=== PATIENT | male | born 1945 | race Caucasian/White ===

== ENCOUNTER 2016-12-03 22:56 | Inpatient (IN) ==
[2016-12-04] MEDS ORDERED: 0.9 % Sodium Chloride 1,000 ML IVC ONE (00:38)
[2016-12-04] MEDS ORDERED: Insulin Human Regular 10 UNIT in 0.9 % Sodium Chloride 10 ML IV ONE (00:39)
[2016-12-04 00:50] LABS: Calcium 9.5 mg/dL (8.6-10.8); Potassium 4.9 mEq/L (3.5-4.5)
[2016-12-04 00:57] LABS: VBG HCO3 29.7 mEq/L (21-27); VBG PH 7.34 pH Units (7.32-7.42)
[2016-12-04 01:02] LABS: Beta-Hydroxybutyric Acid 0.2 mmol/L (0.02-0.27)
--- NOTE | 2016-12-04 01:30 | Emergency Department Note ---
Disposition Clinical Impression: Hyperglycemic hyperosmolar nonketotic coma Hyperglycemia due to type 2 diabetes mellitus Qualifiers: Diabetes mellitus mcfp insulin use: without mcfp use Qualified Code(s ): E11.65 - Type 2 diabetes mellitus with hyperglycemia Disposition: Admitted As Inpatient Time of Disposition: 02:30 General Adult HPI - General Chief complaint: ED General Medical Stated complaint: High BS Time Seen by Provider: 12/04/16 01:07 Source: patient Limitations: no limitations - History of Present Illness HPI Narrative: Mr. Borges, a 71yo male, presents from home by EMS with CC: Elevated blood sugar. On intake, POC glucose was in the 580s. He has been hyperglycemic in the 5-600 range for the last 5-6 days. Patient does not manage his own medications rather his daughter does so for him. He does know that he is not insulin-dependent in his diabetes. He is unsure as to his typical blood glucose value though he does state he regularly tests his blood sugars 4-5 times a day. Patient admits to feeling tired. He denies any other symptoms including fever, chills, nausea, vomiting, changes in bowel or bladder, confusion, weakness, numbness, tingling. Of note, this is the third ER visit in the past 48 hours for hyperglycemia. Pain Scale: 8 - Related Data Home Medications Medication Instructions Recorded Confirmed Atorvastatin [Lipitor] 40 mg PO HS 08/05/15 10/23/16 Docusate [Colace] 200 mg PO BID 08/05/15 10/23/16 Donepezil [Aricept] 10 mg PO HS 08/05/15 10/23/16 Duloxetine [Cymbalta] 60 mg PO DAILY 08/05/15 10/23/16 Lactulose 20 gm PO BID 08/05/15 10/23/16 Levothyroxine [Synthroid] 175 mcg PO DAILY 08/05/15 10/23/16 Aspirin 81 mg PO DAILY 03/18/16 10/23/16 Metoprolol Tartrate [Lopressor] 50 mg PO BID 03/18/16 10/23/16 Furosemide [Lasix] 40 mg PO DAILY 07/30/16 10/23/16 Glucagon,Human Recombinant 1 mg IJ AD 07/30/16 10/23/16 [Glucagon Emergency Kit] Mirabegron [Myrbetriq] 50 mg PO DAILY 07/30/16 10/23/16 CefTRIAXone [Rocephin] 2 gm IV DAILY 10/23/16 10/23/16 Fluticasone Propionate Nasal 1 spr NS DAILY PRN 10/23/16 10/23/16 [Flonase] Guaifenesin [Iophen Nr] 200 mg PO BID PRN 10/23/16 10/23/16 HYDROcodone/Acet 5/325 mg [[place] 1 tab PO Q6H PRN 10/23/16 10/23/16 5-325 mg] Insulin Glargine,Hum.rec.anlog 30 unit SQ 0800 10/23/16 10/23/16 [Lantus Solostar] Insulin Glargine,Hum.rec.anlog 38 unit SQ 1900 10/23/16 10/23/16 [Lantus Solostar] Lidocaine Patch [Lidoderm 5% patch] 1 each TP DAILY 10/23/16 10/23/16 Loratadine [Allergy Relief] 10 mg PO DAILY 10/23/16 10/23/16 OxyCODONE/APAP 5/325 [Percocet 1 each PO Q6HR PRN 10/23/16 10/23/16 5/325 MG] Ranitidine HCl [Zantac] 150 mg PO BID 10/23/16 10/23/16 Sodium Chloride [[place] Saline] 50 ml NS PRN PRN 10/23/16 10/23/16 Tizanidine HCl 4 mg PO BID 10/23/16 10/23/16 Vancomycin [Vancocin] 1.75 g IV Q48H 10/23/16 10/23/16 Previous Rx's Medication Instructions Recorded Rifampin [Rifadin] 300 mg PO BIDAC 42 Days 08/03/16 OxyCODONE Immed Rel [Roxicodone 5 5 - 10 mg PO Q6HR PRN #40 tablet 10/22/16 MG] Allergies Allergy/AdvReac Type Severity Reaction Status Date / Time adhesive tape Allergy Hives Verified 04/25/16 06:26 pregabalin [From Lyrica] Allergy Swelling Verified 04/25/16 06:26 of Lip/Tongue/Throat Sulfa (Sulfonamide Allergy PER PT Verified 04/25/16 06:26 Antibiotics) UNKNOWN REACTION All systems ED: reviewed and negative except as stated. Constitutional: Denies: fever, chills, weakness Cardiovascular: Denies: chest pain, palpitations, dyspnea on exertion, orthopnea , syncope, paroxysmal nocturnal dyspnea Respiratory: Denies: cough, dyspnea, wheezes, hemoptysis Gastrointestinal: Denies: abdominal pain, nausea, vomiting, diarrhea, constipation, hematemesis Genitourinary: Denies: urgency, dysuria Musculoskeletal: Denies: back pain, neck pain Integumentary: Reports: lesions (decubitis ulcer). Denies: rash, abrasion Neurological: Denies: headache, weakness, numbness, paresthesias, confusion Endocrine: Reports: fatigue Past Medical History - Past Medical History Medical history: Reports: cancer, CVA, diabetes, hypertension, renal disease, thyroid disease, syncope Surgical history: Reports: appendectomy, orthopedic, other, thyroidectomy, other Psychiatric history: Reports: anxiety, depression - Social History Smoking Status: Never smoker Smokeless Tobacco Status: No Alcohol use: Reports: none Drug use: Reports: none Physical Exam General: Patient is alert, oriented, and in no acute distress. HEENT: No facial asymmetry. Head is normocephalic and atraumatic. Trachea midline. Cardiovascular: Heart regular rate and rhythm without clicks, rubs, gallops, or murmurs. No JVD. PMI nondisplaced. Respiratory: Symmetric chest rise with poor respiratory effort. Prolonged expiration phase. Bilateral breath sounds are clear without wheezing, crackles , or rhonchi. Abdomen: Obese. Bowel sounds present normoactive x-4 quadrants. Abdomen is soft, nondistended, and nontender. No organomegaly noted. 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 Neuro: Cranial nerves II through XII grossly intact. Integument: Patient has a stage I decubitus ulcer over his sacrum. Psych: Patient's affect is appropriate for situation. - General Limitations: no limitations General appearance: alert, in no apparent distress Course Course Narrative: The patient has poorly controlled type 2 diabetes. This is the third [facility] department visit the last 48 hours each for hyperglycemia. On each visit, his blood glucose was managed with administration of SQ insulin and he was discharged home only to return. Laboratory today suggest hyperglycemic hyper osmolar nonketotic state as his serum osmolality is 318, ketones negative, venous pH within reason, and serum glucose 678. We will recommend the patient for short observation stay for aggressive management of his hyperglycemia and discharge on a more appropriate regimen Accepted to hospitalist service to the service of Dr. Grijalva. Vital Signs Temperature 98.8 F 12/03/16 23:01 Pulse Rate 75 12/03/16 23:01 Respiratory Rate 16 12/03/16 23:01 Blood Pressure 176/79 12/03/16 23:01 O2 Sat by Pulse Oximetry 92 L 12/03/16 23:01 Temperature 98.8 F 12/03/16 23:01 Pulse Rate 68 12/04/16 03:14 Respiratory Rate 16 12/04/16 03:14 Blood Pressure 151/94 12/04/16 03:14 O2 Sat by Pulse Oximetry 94 L 12/04/16 03:14 Oxygen Delivery Oxygen Delivery Nasal Cannula Medical Decision Making - Lab Data Result diagrams: 12/04/16 00:25 12/04/16 00:25 Lab Results 12/03/16 12/03/16 12/04/16 Range/Units 23:00 23:02 00:25 WBC (4.3-11.1) K/mcL RBC (4.19-5.50) M/mcL Hgb (12.9-16.9) g/dL Hct (37.5-50.1) % MCV (83.0-100.0) fL MCH (28.0-33.3) pg MCHC (31.6-35.5) g/dL RDW (11.5-14.5) % Plt Count (140-400) K/mcL MPV (9.4-12.4) fL Immature Gran % (0-4) % Seg Neutrophils % % Lymphocytes % % Monocytes % % Eosinophils % % Basophils % % Neutrophils # (1.6-8.9) K/mcL Lymphocytes # (0.6-4.6) K/mcL Monocytes # (0.0-1.3) K/mcL Eosinophils # (0.0-0.6) K/mcL Basophils # (0.0-0.2) K/mcL VBG pH (7.32-7.42) pH Units VBG pCO2 (41-51) mmHg VBG pO2 (25-40) mmHg VBG HCO3 (21-27) mEq/L Sodium 134 L (136-145) mEq/L Potassium 4.9 H (3.5-4.5) mEq/L Chloride 98 (98-109) mEq/L Carbon Dioxide 21 (19-29) mEq/L BUN 18 (8-26) mg/dL Creatinine 1.53 H (0.72-1.25) mg/dL Est GFR ( Amer) 55 L (> 60) Est GFR (Non-Af Amer) 45 L (> 60) BUN/Creatinine Ratio 12 (6-26) Glucose 678 H* (70-99) mg/dL POC Glucose 595 H* 585 H* (58-89) Calculated Osmolality 312 H (280-300) Calcium 9.5 (8.6-10.8) mg/dL Beta-Hydroxybutyric Acd 0.20 (0.02-0.27) mmol/L Urine Color (Yellow) Urine Clarity (Clear) Urine pH (5.0-8.0) pH Units Ur Specific [place] (1.010-1.025) Urine Protein (Neg-Trace) mg/dL Urine Glucose (UA) (Normal) mg/dL Urine Ketones (Negative) mg/dL Urine Blood (Negative) Urine Nitrite (Negative) Urine Bilirubin (Negative) Urine Urobilinogen (Normal) mg/dL Ur Leukocyte Esterase (Negative) Urine Microscopic RBC (0-3) per hpf Urine Microscopic WBC (0-3) per hpf Ur Squamous Epith Cells (None-Few) per lpf Urine Bacteria (None-Few) per hpf Hyaline Casts (None-Few) per lpf Ur Culture Indicated? (NO) 12/04/16 12/04/16 12/04/16 Range/Units 00:25 00:50 02:04 WBC 7.6 (4.3-11.1) K/mcL RBC 3.83 L (4.19-5.50) M/mcL Hgb 8.8 L (12.9-16.9) g/dL Hct 29.6 L (37.5-50.1) % MCV 77.3 L (83.0-100.0) fL MCH 23.0 L (28.0-33.3) pg MCHC 29.7 L (31.6-35.5) g/dL RDW 16.0 H (11.5-14.5) % Plt Count 119 L (140-400) K/mcL MPV 12.2 (9.4-12.4) fL Immature Gran % 0.7 (0-4) % Seg Neutrophils % 63.2 % Lymphocytes % 22.6 % Monocytes % 7.5 % Eosinophils % 5.6 % Basophils % 0.4 % Neutrophils # 4.8 (1.6-8.9) K/mcL Lymphocytes # 1.7 (0.6-4.6) K/mcL Monocytes # 0.6 (0.0-1.3) K/mcL Eosinophils # 0.4 (0.0-0.6) K/mcL Basophils # 0.0 (0.0-0.2) K/mcL VBG pH 7.34 (7.32-7.42) pH Units VBG pCO2 55 H (41-51) mmHg VBG pO2 63 H (25-40) mmHg VBG HCO3 29.7 H (21-27) mEq/L Sodium (136-145) mEq/L Potassium (3.5-4.5) mEq/L Chloride (98-109) mEq/L Carbon Dioxide (19-29) mEq/L BUN (8-26) mg/dL Creatinine (0.72-1.25) mg/dL Est GFR ( Amer) (> 60) Est GFR (Non-Af Amer) (> 60) BUN/Creatinine Ratio (6-26) Glucose (70-99) mg/dL POC Glucose (58-89) Calculated Osmolality (280-300) Calcium (8.6-10.8) mg/dL Beta-Hydroxybutyric Acd (0.02-0.27) mmol/L Urine Color Yellow (Yellow) Urine Clarity Clear (Clear) Urine pH 6.0 (5.0-8.0) pH Units Ur Specific [place] 1.027 H (1.010-1.025) Urine Protein 100 H (Neg-Trace) mg/dL Urine Glucose (UA) >=1000 H (Normal) mg/dL Urine Ketones Negative (Negative) mg/dL Urine Blood Negative (Negative) Urine Nitrite Negative (Negative) Urine Bilirubin Negative (Negative) Urine Urobilinogen Normal (Normal) mg/dL Ur Leukocyte Esterase Negative (Negative) Urine Microscopic RBC 3-5 H (0-3) per hpf Urine Microscopic WBC 15-30 H (0-3) per hpf Ur Squamous Epith Cells Many H (None-Few) per lpf Urine Bacteria None Seen (None-Few) per hpf Hyaline Casts None Seen (None-Few) per lpf Ur Culture Indicated? YES A (NO) 12/04/16 Range/Units 02:14 WBC (4.3-11.1) K/mcL RBC (4.19-5.50) M/mcL Hgb (12.9-16.9) g/dL Hct (37.5-50.1) % MCV (83.0-100.0) fL MCH (28.0-33.3) pg MCHC (31.6-35.5) g/dL RDW (11.5-14.5) % Plt Count (140-400) K/mcL MPV (9.4-12.4) fL Immature Gran % (0-4) % Seg Neutrophils % % Lymphocytes % % Monocytes % % Eosinophils % % Basophils % % Neutrophils # (1.6-8.9) K/mcL Lymphocytes # (0.6-4.6) K/mcL Monocytes # (0.0-1.3) K/mcL Eosinophils # (0.0-0.6) K/mcL Basophils # (0.0-0.2) K/mcL VBG pH (7.32-7.42) pH Units VBG pCO2 (41-51) mmHg VBG pO2 (25-40) mmHg VBG HCO3 (21-27) mEq/L Sodium (136-145) mEq/L Potassium (3.5-4.5) mEq/L Chloride (98-109) mEq/L Carbon Dioxide (19-29) mEq/L BUN (8-26) mg/dL Creatinine (0.72-1.25) mg/dL Est GFR ( Amer) (> 60) Est GFR (Non-Af Amer) (> 60) BUN/Creatinine Ratio (6-26) Glucose (70-99) mg/dL POC Glucose 504 H* (58-89) Calculated Osmolality (280-300) Calcium (8.6-10.8) mg/dL Beta-Hydroxybutyric Acd (0.02-0.27) mmol/L Urine Color (Yellow) Urine Clarity (Clear) Urine pH (5.0-8.0) pH Units Ur Specific [place] (1.010-1.025) Urine Protein (Neg-Trace) mg/dL Urine Glucose (UA) (Normal) mg/dL Urine Ketones (Negative) mg/dL Urine Blood (Negative) Urine Nitrite (Negative) Urine Bilirubin (Negative) Urine Urobilinogen (Normal) mg/dL Ur Leukocyte Esterase (Negative) Urine Microscopic RBC (0-3) per hpf Urine Microscopic WBC (0-3) per hpf Ur Squamous Epith Cells (None-Few) per lpf Urine Bacteria (None-Few) per hpf Hyaline Casts (None-Few) per lpf Ur Culture Indicated? (NO) Attestation Statement - Attestation Attestation: I, Charanjit Malone MD, personally performed a history and physical exam of the patient and discussed their management with the resident. I reviewed the resident's note and agree with the documented findings, medical decision making , and plan of care. 71-year-old male with history of diabetes presents to the emergency department with a complaint of hyperglycemia. Patient was here 24 hours ago for the same complaint and received IV fluids and IV insulin. He was discharged home last night the middle the night and then returned again today about 10 AM. He was here most of the day and then discharged home again. He returns tonight complaining that his blood sugar is back high again. On examination patient is a well-developed obese elderly male in no acute distress. He is alert and oriented 3. There is no cyanosis or diaphoresis. Breath sounds are equal bilaterally. Heart regular rate and rhythm. Abdomen soft with normal bowel sounds. Labs reviewed. The hospitalist, Dr. Grijalva, was consulted and accepted admission of the patient.
[2016-12-04 02:14] LABS: Bilirubin,Urine Negative (Negative); Blood,Urine Negative (Negative); Clarity,Urine Clear (Clear); Color,Urine Yellow (Yellow); Glucose,Urine (UA) >=1000 mg/dL (Normal); Ketones,Urine Negative (Negative); Leukocyte Esterase,Urine Negative (Negative); Nitrite,Urine Negative (Negative); Protein,Urine 100 mg/dL (Neg-Trace); Specific Gravity,Urine 1.027 (1.010-1.025); Urobilinogen,Urine Normal (Normal)
[2016-12-04 02:16] LABS: Bacteria,Urine None Seen per hpf (None-Few); Hyaline Casts,Urine None Seen per lpf (None-Few); Squamous Epithelial Cell,Urine Many per lpf (None-Few); WBC,Urine 15-30 per hpf (0-3)
[2016-12-04 02:36] LABS: Basophils % 0.4 %; Eosinophils # 0.4 K/mcL (0.0-0.6); Eosinophils % 5.6 %; Hematocrit 29.6 % (37.5-50.1); Hemoglobin 8.8 g/dL (12.9-16.9); Immature Granulocytes % 0.7 % (0-4); Lymphocytes # 1.7 K/mcL (0.6-4.6); Lymphocytes % 22.6 %; Mean Corpuscular HGB Conc 29.7 g/dL (31.6-35.5); Mean Corpuscular Volume 77.3 fL (83.0-100.0); Mean Platelet Volume 12.2 fL (9.4-12.4); Monocytes # 0.6 K/mcL (0.0-1.3); Monocytes % 7.5 %; Neutrophils # 4.8 K/mcL (1.6-8.9); Platelet Count 119 K/mcL (140-400); Red Blood Count 3.83 M/mcL (4.19-5.50); Segmented Neutrophils % 63.2 %
[2016-12-04] MEDS ORDERED: *HR* Dextrose 50 % in Water (Syg) 50 ML SYRINGE IVP PRN ×2 (04:10→13:57)
[2016-12-04] MEDS ORDERED: D5% in 0.45% NACL w KCl 20 MEQ/1,000 ML MLS IVC PRN (04:10)
[2016-12-04] MEDS ORDERED: Insulin LISPRO 300 UNITS/3 ML VIAL SQ PRN (04:10)
[2016-12-04] MEDS ORDERED: 0.9 % Sodium Chloride 1,000 ML IV SCH (04:15)
[2016-12-04] MEDS ORDERED: Insulin Human Regular 100 UNIT in 0.9 % Sodium Chloride 100 ML IVC SCH ×2 (04:15→10:00)
[2016-12-04] MEDS ORDERED: Ondansetron 4 MG/2 ML VIAL IVP PRN (04:46)
[2016-12-04] MEDS ORDERED: Naloxone 0.4 MG/ML INJ IVP PRN (04:46)
[2016-12-04] MEDS ORDERED: Acetaminophen 325 MG TABLET PO PRN (04:46)
[2016-12-04] MEDS ORDERED: D5% in 0.45% NACL 1,000 ML IVC PRN (04:48)
[2016-12-04] MEDS ORDERED: 0.9 % Sodium Chloride w KCl 20 MEQ/1,000 ML MLS IVC PRN (04:48)
[2016-12-04] MEDS ORDERED: 0.45 % Sodium Chloride w/KCl 20 MEQ/1,000 ML MLS IVC PRN (04:48)
[2016-12-04] MEDS ORDERED: 0.9 % Sodium Chloride 1,000 ML IV PRN (04:53)
[2016-12-04] MEDS ORDERED: 0.9 % Sodium Chloride w KCl 20 MEQ/1,000 ML MLS IVC ONE (04:54)
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
[2016-12-04 05:32] LABS: Alanine Aminotransferase 19 Units/L (0-55); Albumin 3.4 g/dL (3.5-5.0); Albumin/Globulin Ratio 0.8 (1.1-2.2); Alkaline Phosphatase 71 Units/L (38-126); Aspartate Amino Transferase 28 Units/L (5-34); BUN/Creatinine Ratio 12 (6-26); Bilirubin,Total 0.3 mg/dL (0.2-1.2); Blood Urea Nitrogen 17 mg/dL (8-26); Calcium 9.1 mg/dL (8.6-10.8); Carbon Dioxide 21 mEq/L (19-29); Chloride 100 mEq/L (98-109); Globulin 4.2 g/dL (2.4-3.5); Glucose 454 mg/dL (70-99); Osmolality,Calculated 301 (280-300); Potassium 4.3 mEq/L (3.5-4.5); Sodium 135 mEq/L (136-145); Total Protein 7.6 g/dL (6.0-8.3); eGFR For African Americans > 60 (> 60); eGFR For Non-African Americans 50 (> 60)
[2016-12-04 05:43] LABS: Hemoglobin A1C 11.1 %
[2016-12-04] MEDS: *HR* OxyCODONE/APAP 5/325 TABLET PO PRN ×2 (06:20→22:06)
[2016-12-04] MEDS: *HR* Heparin 5,000 UNIT/ML VIAL SQ SCH ×2 (07:45→18:46)
--- NOTE | 2016-12-04 12:02 | Event Note ---
Date of Encounter: 12/04/16 Time of Encounter: 09:25 Patient feels better now. Blood sugars improving. On IV insulin. We will consult apartment maintenance worker. Continue to check basic panel. Patient is on IV insulin drip. Once his hyperosmolar state improves, will place him back on subcutaneous insulin and start him on cardiac/diabetic diet and change Accu- Cheks to before meals at bedtime. Patient also has a stage I decubitus ulcer in the gluteal region. Will manage with local wound care.
[2016-12-04 13:24] LABS: Alanine Aminotransferase 20 Units/L (0-55); Albumin 3.6 g/dL (3.5-5.0); Albumin/Globulin Ratio 0.8 (1.1-2.2); Alkaline Phosphatase 77 Units/L (38-126); Aspartate Amino Transferase 31 Units/L (5-34); BUN/Creatinine Ratio 13 (6-26); Bilirubin,Total 0.3 mg/dL (0.2-1.2); Blood Urea Nitrogen 15 mg/dL (8-26); Calcium 9.3 mg/dL (8.6-10.8); Carbon Dioxide 24 mEq/L (19-29); Chloride 105 mEq/L (98-109); Globulin 4.4 g/dL (2.4-3.5); Glucose 110 mg/dL (70-99); Osmolality,Calculated 289 (280-300); Potassium 4.2 mEq/L (3.5-4.5); Sodium 139 mEq/L (136-145); eGFR For African Americans > 60 (> 60); eGFR For Non-African Americans 60 (> 60)
[2016-12-04] MEDS ORDERED: Dextrose Gel 15 GM PO PRN ×2 (13:57)
[2016-12-04] MEDS: Insulin DETEMIR 100 UNIT/ML X5UNITS SQ SCH ×2 (15:24→20:18)
[2016-12-04] MEDS: Insulin LISPRO 300 UNITS/3 ML VIAL SQ SCH ×3 (16:36→20:17)
[2016-12-04] MEDS: Famotidine 20 MG TABLET PO SCH (19:58)
[2016-12-04] MEDS ORDERED: Insulin DETEMIR 100 UNIT/ML X5UNITS SQ SCH (21:00)
[2016-12-05] MEDS: Aspirin 81 MG TAB.CHEW PO SCH (08:27)
[2016-12-05] MEDS: amLODIPine 5 MG TABLET PO SCH (08:27)
[2016-12-05] MEDS: Lisinopril 20 MG TABLET PO SCH (08:27)
[2016-12-05] MEDS: Insulin DETEMIR 100 UNIT/ML X5UNITS SQ SCH ×2 (08:27→21:50)
[2016-12-05] MEDS: Famotidine 20 MG TABLET PO SCH ×2 (08:27→21:50)
[2016-12-05] MEDS: Insulin LISPRO 300 UNITS/3 ML VIAL SQ SCH ×7 (08:28→21:50)
[2016-12-05] MEDS: Patient Taking Own Medication 1 EACH PO SCH (08:29)
[2016-12-05] MEDS: *HR* Heparin 5,000 UNIT/ML VIAL SQ SCH ×2 (08:29→17:14)
[2016-12-05 09:35] LABS: BUN/Creatinine Ratio 10 (6-26); Blood Urea Nitrogen 14 mg/dL (8-26); Calcium 8.9 mg/dL (8.6-10.8); Carbon Dioxide 24 mEq/L (19-29); Chloride 100 mEq/L (98-109); Glucose 408 mg/dL (70-99); Osmolality,Calculated 300 (280-300); Potassium 5.1 mEq/L (3.5-4.5); Sodium 136 mEq/L (136-145); eGFR For African Americans > 60 (> 60); eGFR For Non-African Americans 51 (> 60)
[2016-12-05 09:41] LABS: Basophils % 0.6 %; Eosinophils # 0.5 K/mcL (0.0-0.6); Eosinophils % 6.5 %; Hematocrit 30.6 % (37.5-50.1); Hemoglobin 8.6 g/dL (12.9-16.9); Immature Granulocytes % 0.8 % (0-4); Lymphocytes # 1.6 K/mcL (0.6-4.6); Lymphocytes % 21.7 %; Mean Corpuscular HGB Conc 28.1 g/dL (31.6-35.5); Mean Corpuscular Hemoglobin 21.9 pg (28.0-33.3); Mean Corpuscular Volume 77.9 fL (83.0-100.0); Mean Platelet Volume 11.2 fL (9.4-12.4); Monocytes # 0.5 K/mcL (0.0-1.3); Monocytes % 6.8 %; Neutrophils # 4.6 K/mcL (1.6-8.9); Platelet Count 110 K/mcL (140-400); Red Blood Count 3.93 M/mcL (4.19-5.50); Red Cell Distribution Width 15.9 % (11.5-14.5); Segmented Neutrophils % 63.6 %
[2016-12-05 10:07] LABS: Hypochromasia Present (Not Present); Platelet Estimate Normal (Normal)
[2016-12-05] MEDS: *HR* OxyCODONE/APAP 5/325 TABLET PO PRN ×2 (11:38→22:49)
--- NOTE | 2016-12-05 18:08 | Internal Med Progress Note ---
Date of Encounter: 12/05/16 Time of Encounter: 18:03 - Assessment and plan (1) Hyperosmolar non-ketotic state in patient with type 2 diabetes mellitus Current Visit: Yes Status: Acute (2) THOMAS (acute kidney injury) Current Visit: Yes Status: Acute (3) CAD (coronary artery disease) Current Visit: Yes Status: Acute Qualifiers: Coronary Disease-Associated Artery/Lesion type: unspecified vessel or lesion type [place] vs. transplanted heart: unspecified whether [place] or transplanted heart Associated angina: angina presence unspecified Qualified Code(s): I25.10 - Atherosclerotic heart disease of [place] coronary artery without angina pectoris (4) CKD (chronic kidney disease), stage III Current Visit: Yes Status: Acute (5) Hypothyroidism Current Visit: Yes Status: Acute Qualifiers: Hypothyroidism type: unspecified Qualified Code(s): E03.9 - Hypothyroidism , unspecified (6) Accelerated hypertension Current Visit: No Status: Acute (7) Acute and chronic respiratory failure with hypercapnia Current Visit: No Status: Acute (8) Acute blood loss anemia Current Visit: No Status: Acute (9) Obesity hypoventilation syndrome Current Visit: No Status: Chronic Assessment and plan: Mild improvement in hyperglycemia, not yet at a safe range for discharge. Monitor acidosis. Continue to monitor electrolytes and glucose levels. Continue insulin coverage continue aspirin and Statin. Continue Lopressor and lisinopril. Monitor blood pressures. Continue Synthroid. - Subjective Interval history: Patient evaluated, seen lying in bed. Pt denies Chest or abdominal pain, Shortness of breath, fever or chills. - Constitutional Vitals: Temp Pulse Resp BP Pulse Ox 97.9 F 60 18 158/78 98 12/05/16 11:00 12/05/16 16:09 12/05/16 16:07 12/05/16 16:07 12/05/16 16:07 General appearance: Present: A&O X 3, no acute distress - Head Head exam: Present: atraumatic, normocephalic - Eye Eye exam: Present: PERRL, conjuntiva pink, sclera anicteric Pupils: Present: PERRL - Neck Neck exam general surgery: Present: supple, trachea midline. Absent: lymphadenopathy - Respiratory Respiratory exam: Present: CTAB. Absent: accessory muscle use, rales, rhonchi, wheezes - Cardiovascular Cardiovascular exam: Present: RRR, +S1, +S2. Absent: diastolic murmur, gallop, rubs, systolic murmur - GI/Abdominal GI/Abdominal exam: Present: normal bowel sounds, soft, no peritoneal signs. Absent: distended, tenderness - Extremities Exam Extremities exam: Present: warm, radial pulses palpable and symetrical. Absent : calf tenderness, cyanotic, pedal edema Additional comments: left AKA - Neurological Exam Neurological exam: Present: CN II-XII intact, oriented X3, no focal deficits. Absent: pronater drift, facial droop, speech deficit - Skin Skin exam: Present: dry, intact Internal Medicine: Result - Labs CBC & Chem 7: 12/05/16 09:08 12/05/16 09:08 Labs: Short CBC 12/05/16 Range/Units 09:08 WBC 7.3 (4.3-11.1) K/mcL Hgb 8.6 L (12.9-16.9) g/dL Hct 30.6 L (37.5-50.1) % Plt Count 110 L (140-400) K/mcL Neutrophils # 4.6 (1.6-8.9) K/mcL BMP 12/05/16 09:08 Sodium 136 Potassium 5.1 H Chloride 100 Carbon Dioxide 24 BUN 14 Creatinine 1.38 H Glucose 408 H Calcium 8.9 Consult Discharge Plan - Plan Referrals: Chandan Fitzgerald MD [Primary Care Provider] - 12/11/16 1:00 pm
[2016-12-06 04:51] LABS: Hemoglobin 7.7 g/dL (12.9-16.9); Red Cell Distribution Width 15.9 % (11.5-14.5)
[2016-12-06 04:56] LABS: Basophils # 0.1 K/mcL (0.0-0.2); Basophils % 0.9 %; Eosinophils # 0.5 K/mcL (0.0-0.6); Eosinophils % 6.2 %; Hematocrit 26.2 % (37.5-50.1); Immature Granulocytes % 0.8 % (0-4); Lymphocytes # 1.8 K/mcL (0.6-4.6); Lymphocytes % 23.2 %; Mean Corpuscular HGB Conc 29.4 g/dL (31.6-35.5); Mean Corpuscular Hemoglobin 22.8 pg (28.0-33.3); Mean Corpuscular Volume 77.5 fL (83.0-100.0); Mean Platelet Volume 11.6 fL (9.4-12.4); Monocytes # 0.6 K/mcL (0.0-1.3); Monocytes % 8.1 %; Neutrophils # 4.7 K/mcL (1.6-8.9); Platelet Count 102 K/mcL (140-400); Red Blood Count 3.38 M/mcL (4.19-5.50); Segmented Neutrophils % 60.8 %
[2016-12-06 05:05] LABS: BUN/Creatinine Ratio 13 (6-26); Blood Urea Nitrogen 17 mg/dL (8-26); Calcium 8.6 mg/dL (8.6-10.8); Carbon Dioxide 24 mEq/L (19-29); Chloride 100 mEq/L (98-109); Glucose 286 mg/dL (70-99); Osmolality,Calculated 292 (280-300); Potassium 4.8 mEq/L (3.5-4.5); Sodium 135 mEq/L (136-145); eGFR For African Americans > 60 (> 60); eGFR For Non-African Americans 57 (> 60)
[2016-12-06] MEDS: *HR* Heparin 5,000 UNIT/ML VIAL SQ SCH ×2 (06:23→17:16)
[2016-12-06] MEDS: *HR* OxyCODONE/APAP 5/325 TABLET PO PRN (06:23)
[2016-12-06] MEDS: amLODIPine 5 MG TABLET PO SCH (08:04)
[2016-12-06] MEDS: Lisinopril 20 MG TABLET PO SCH (08:04)
[2016-12-06] MEDS: Aspirin 81 MG TAB.CHEW PO SCH (08:04)
[2016-12-06] MEDS: Famotidine 20 MG TABLET PO SCH ×2 (08:04→22:29)
[2016-12-06] MEDS: Patient Taking Own Medication 1 EACH PO SCH (08:06)
[2016-12-06] MEDS: Insulin LISPRO 300 UNITS/3 ML VIAL SQ SCH ×7 (08:06→22:31)
[2016-12-06] MEDS: Insulin DETEMIR 100 UNIT/ML X5UNITS SQ SCH (08:16)
--- NOTE | 2016-12-06 11:42 | Internal Med Progress Note ---
Date of Encounter: 12/06/16 Time of Encounter: 11:42 - Assessment and plan (1) Hyperosmolar non-ketotic state in patient with type 2 diabetes mellitus Current Visit: Yes Status: Acute (2) THOMAS (acute kidney injury) Current Visit: Yes Status: Acute (3) CAD (coronary artery disease) Current Visit: Yes Status: Acute Qualifiers: Coronary Disease-Associated Artery/Lesion type: unspecified vessel or lesion type [place] vs. transplanted heart: unspecified whether [place] or transplanted heart Associated angina: angina presence unspecified Qualified Code(s): I25.10 - Atherosclerotic heart disease of [place] coronary artery without angina pectoris (4) CKD (chronic kidney disease), stage III Current Visit: Yes Status: Acute (5) Hypothyroidism Current Visit: Yes Status: Acute Qualifiers: Hypothyroidism type: unspecified Qualified Code(s): E03.9 - Hypothyroidism , unspecified (6) Accelerated hypertension Current Visit: No Status: Acute (7) Acute and chronic respiratory failure with hypercapnia Current Visit: No Status: Acute (8) Acute blood loss anemia Current Visit: No Status: Acute (9) Obesity hypoventilation syndrome Current Visit: No Status: Chronic Assessment and plan: Pt cannot afford the Levemir that he is getting now, with the help of pharmacy [facility] and he is on NPH which he can afford, helping to ensure compliance. Will start NPH 90 bid based on his last refill at [facility]. First dose tonight. Continue to monitor electrolytes and glucose levels. continue aspirin and Statin. Continue Lopressor and lisinopril. Monitor blood pressures. Continue Synthroid. - Subjective Interval history: Patient evaluated, seen lying in bed. Pt denies Chest or abdominal pain, Shortness of breath, fever or chills. - Constitutional Vitals: Temp Pulse Resp BP Pulse Ox 97.9 F 62 16 136/65 94 L 12/06/16 08:39 12/06/16 08:39 12/06/16 08:39 12/06/16 08:39 12/06/16 08:39 General appearance: Present: A&O X 3, no acute distress - Head Head exam: Present: atraumatic, normocephalic - Eye Eye exam: Present: PERRL, conjuntiva pink, sclera anicteric Pupils: Present: PERRL - Neck Neck exam general surgery: Present: supple, trachea midline. Absent: lymphadenopathy - Respiratory Respiratory exam: Present: CTAB. Absent: accessory muscle use, rales, rhonchi, wheezes - Cardiovascular Cardiovascular exam: Present: RRR, +S1, +S2. Absent: diastolic murmur, gallop, rubs, systolic murmur - GI/Abdominal GI/Abdominal exam: Present: normal bowel sounds, soft, no peritoneal signs. Absent: distended, tenderness - Extremities Exam Extremities exam: Present: warm, radial pulses palpable and symetrical. Absent : calf tenderness, cyanotic, pedal edema - Neurological Exam Neurological exam: Present: CN II-XII intact, oriented X3, no focal deficits. Absent: pronater drift, facial droop, speech deficit - Skin Skin exam: Present: dry, intact Internal Medicine: Result - Labs CBC & Chem 7: 12/06/16 03:54 12/06/16 03:54 Labs: Short CBC 12/06/16 Range/Units 03:54 WBC 7.7 (4.3-11.1) K/mcL Hgb 7.7 L (12.9-16.9) g/dL Hct 26.2 L (37.5-50.1) % Plt Count 102 L (140-400) K/mcL Neutrophils # 4.7 (1.6-8.9) K/mcL BMP 12/06/16 03:54 Sodium 135 L Potassium 4.8 H Chloride 100 Carbon Dioxide 24 BUN 17 Creatinine 1.26 H Glucose 286 H Calcium 8.6 Consult Discharge Plan - Plan Instructions: Diabetes Mellitus Type 2 in Adults (DC), Meal Planning with Diabetes Exchanges (DC), Anemia (GEN) Referrals: Chandan Fitzgerald MD [Primary Care Provider] - 12/11/16 1:00 pm
[2016-12-06] MEDS ORDERED: Insulin NPH 100 UNIT/ML (x5UNIT) SQ SCH (21:00)
[2016-12-06] MEDS: Insulin NPH 100 UNIT/ML (x5UNIT) SQ SCH (22:30)
[2016-12-07 05:24] LABS: Basophils # 0.1 K/mcL (0.0-0.2); Basophils % 0.7 %; Eosinophils # 0.5 K/mcL (0.0-0.6); Eosinophils % 6.4 %; Hematocrit 28.6 % (37.5-50.1); Hemoglobin 8.3 g/dL (12.9-16.9); Immature Granulocytes % 0.5 % (0-4); Lymphocytes # 1.6 K/mcL (0.6-4.6); Lymphocytes % 21.6 %; Mean Corpuscular Hemoglobin 22.4 pg (28.0-33.3); Mean Corpuscular Volume 77.3 fL (83.0-100.0); Monocytes # 0.6 K/mcL (0.0-1.3); Monocytes % 7.9 %; Neutrophils # 4.6 K/mcL (1.6-8.9); Platelet Count 100 K/mcL (140-400); Red Cell Distribution Width 15.9 % (11.5-14.5); Segmented Neutrophils % 62.9 %
[2016-12-07 05:36] LABS: Calcium 8.8 mg/dL (8.6-10.8); Potassium 4.9 mEq/L (3.5-4.5)
[2016-12-07] MEDS: *HR* Heparin 5,000 UNIT/ML VIAL SQ SCH (06:17)
[2016-12-07 07:52] VITALS: BP 154/70
[2016-12-07] MEDS: Insulin NPH 100 UNIT/ML (x5UNIT) SQ SCH (08:04)
[2016-12-07] MEDS: Aspirin 81 MG TAB.CHEW PO SCH (08:05)
[2016-12-07] MEDS: amLODIPine 5 MG TABLET PO SCH (08:06)
[2016-12-07] MEDS: Famotidine 20 MG TABLET PO SCH (08:06)
[2016-12-07] MEDS: Lisinopril 20 MG TABLET PO SCH (08:06)
[2016-12-07] MEDS: Patient Taking Own Medication 1 EACH PO SCH (08:18)
[2016-12-07] MEDS: Insulin LISPRO 300 UNITS/3 ML VIAL SQ SCH ×2 (08:35)
--- NOTE | 2016-12-07 08:54 | Discharge Summary ---
Date of Encounter: 12/07/16 Time of Encounter: 08:35 - Discharge Diagnosis (1) Hyperosmolar non-ketotic state in patient with type 2 diabetes mellitus Priority: Primary Status: Acute (2) THOMAS (acute kidney injury) Priority: Primary Status: Acute (3) CAD (coronary artery disease) Priority: Secondary Status: Acute Qualifiers: Coronary Disease-Associated Artery/Lesion type: unspecified vessel or lesion type [place] vs. transplanted heart: unspecified whether [place] or transplanted heart Associated angina: angina presence unspecified Qualified Code(s): I25.10 - Atherosclerotic heart disease of [place] coronary artery without angina pectoris (4) CKD (chronic kidney disease), stage III Priority: Secondary Status: Acute (5) Hypothyroidism Priority: Secondary Status: Acute Qualifiers: Hypothyroidism type: unspecified Qualified Code(s): E03.9 - Hypothyroidism , unspecified (6) Accelerated hypertension Priority: Secondary Status: Acute (7) Acute and chronic respiratory failure with hypercapnia Priority: Secondary Status: Acute (8) Acute blood loss anemia Priority: Secondary Status: Acute (9) Obesity hypoventilation syndrome Priority: Secondary Status: Chronic - Discharge Medications Prescriptions: HydrALAZINE 10 mg PO BID #60 tablet Insulin LISPRO [HumaLOG] 15 units SQ TIDWM 60 Days Insulin NPH, HUMAN [HumuLIN N] 90 unit SQ BID 60 Days Home Medications: Atorvastatin [Lipitor] 40 mg PO HS 08/05/15 [History] Docusate [Colace] 200 mg PO BID 08/05/15 [History] Donepezil [Aricept] 10 mg PO HS 08/05/15 [History] Duloxetine [Cymbalta] 60 mg PO DAILY 08/05/15 [History] Lactulose 20 gm PO BID 08/05/15 [History] Levothyroxine [Synthroid] 175 mcg PO DAILY 08/05/15 [History] Aspirin 81 mg PO DAILY 03/18/16 [History] Metoprolol Tartrate [Lopressor] 50 mg PO BID 03/18/16 [History] Furosemide [Lasix] 40 mg PO DAILY 07/30/16 [History] Glucagon,Human Recombinant [Glucagon Emergency Kit] 1 mg IJ AD 07/30/16 [History ] Mirabegron [Myrbetriq] 50 mg PO DAILY 07/30/16 [History] OxyCODONE Immed Rel [Roxicodone 5 MG] 5 - 10 mg PO Q6HR PRN #40 tablet 10/22/16 [Rx] Fluticasone Propionate Nasal [Flonase] 1 spr NS DAILY PRN 10/23/16 [History] Guaifenesin [Iophen Nr] 200 mg PO BID PRN 10/23/16 [History] HYDROcodone/Acet 5/325 mg [[place] 5-325 mg] 1 tab PO Q6H PRN 10/23/16 [History] Insulin Glargine,Hum.rec.anlog [Lantus Solostar] 30 unit SQ 0800 10/23/16 [ History] Insulin Glargine,Hum.rec.anlog [Lantus Solostar] 38 unit SQ 1900 10/23/16 [ History] Lidocaine Patch [Lidoderm 5% patch] 1 each TP DAILY 10/23/16 [History] Loratadine [Allergy Relief] 10 mg PO DAILY 10/23/16 [History] OxyCODONE/APAP 5/325 [Percocet 5/325 MG] 1 each PO Q6HR PRN 10/23/16 [History] Ranitidine HCl [Zantac] 150 mg PO BID 10/23/16 [History] Sodium Chloride [[place] Saline] 50 ml NS PRN PRN 10/23/16 [History] Tizanidine HCl 4 mg PO BID 10/23/16 [History] Amlodipine Besylate 10 mg PO DAILY 12/04/16 [History] Cyclobenzaprine [Flexeril] 5 mg PO TID PRN 12/04/16 [History] Lisinopril [Zestril] 20 mg PO DAILY 12/04/16 [History] HydrALAZINE 10 mg PO BID #60 tablet 12/07/16 [Rx] Insulin LISPRO [HumaLOG] 15 units SQ TIDWM 60 Days 12/07/16 [Rx] Insulin NPH, HUMAN [HumuLIN N] 90 unit SQ BID 60 Days 12/07/16 [Rx] Allergies/Adverse Reactions: Allergies adhesive tape Allergy (Verified 12/04/16 13:46) Hives pregabalin [From Lyrica] Allergy (Verified 12/04/16 13:46) Swelling of Lip/Tongue/Throat Sulfa (Sulfonamide Antibiotics) Allergy (Verified 12/04/16 13:46) PER PT UNKNOWN REACTION Date of admission: 12/06/16 14:38 Primary care physician: Chandan Fitzgerald MD - Patient Status Disposition: Home, Self-Care Condition: Fair - Discharge Instructions Instructions: Diabetes Mellitus Type 2 in Adults (DC), Meal Planning with Diabetes Exchanges (DC), Anemia (GEN) Follow Up With: Chandan Fitzgerald MD [Primary Care Provider] - 12/11/16 1:00 pm - Diet and Activity Activity: increase activity as tolerated Hospital course: Mr. Borges is a 71 year old male who presented with hyperglycemia with blood sugar in the high 600's, patient was treated per DKA protocol with insulin, IV fluids, electrolyte replacement with improvement. He was transitioned to NPH insulin since that was what he could afford. He will be discharged today in stable condition. He should follow up with his PCP in 3-5 days to monitor renal function and electrolytes. - Time Spent with Patient Total time spent providing and/or coordinating discharge services: - Constitutional Vitals: Temp Pulse Resp BP Pulse Ox 97.2 F L 61 16 154/70 94 L 12/07/16 07:38 12/07/16 07:38 12/07/16 07:38 12/07/16 07:38 12/07/16 07:38 General appearance: Present: A&O X 3, no acute distress - Head Head exam: Present: atraumatic, normocephalic - Eye Eye exam: Present: PERRL, conjuntiva pink, sclera anicteric Pupils: Present: PERRL - Neck Neck exam general surgery: Present: supple, trachea midline. Absent: lymphadenopathy - Respiratory Respiratory exam: Present: CTAB. Absent: accessory muscle use, rales, rhonchi, wheezes - Cardiovascular Cardiovascular exam: Present: RRR, +S1, +S2. Absent: diastolic murmur, gallop, rubs, systolic murmur - GI/Abdominal GI/Abdominal exam: Present: normal bowel sounds, soft, no peritoneal signs. Absent: distended, tenderness - Extremities Exam Extremities exam: Present: warm, radial pulses palpable and symetrical. Absent : calf tenderness, cyanotic, pedal edema - Neurological Exam Neurological exam: Present: CN II-XII intact, oriented X3, no focal deficits. Absent: pronater drift, facial droop, speech deficit - Skin Skin exam: Present: dry, intact
--- NOTE | 2016-12-07 10:06 | Physician Discharge Referral ---
Home Health/Hosp Referral Info Transfer to: Home Health - Diagnosis (1) Hyperosmolar non-ketotic state in patient with type 2 diabetes mellitus Status: Acute (2) THOMAS (acute kidney injury) Status: Acute (3) CAD (coronary artery disease) Status: Acute (4) CKD (chronic kidney disease), stage III Status: Acute (5) Hypothyroidism Status: Acute (6) Accelerated hypertension Status: Acute (7) Acute and chronic respiratory failure with hypercapnia Status: Acute (8) Acute blood loss anemia Status: Acute (9) Obesity hypoventilation syndrome Status: Chronic - Respiratory Orders Smoking Cessation: Smoking cessation has been advised. For more information, call the [place] Tobacco Quit Line at 0-420-TGZB-NOW. - Services Needed Following services are medically necessary services: Home Health Aide, Physical Therapy, Occupational Therapy - Transfer Medications Prescriptions: HydrALAZINE 10 mg PO BID #60 tablet Insulin LISPRO [HumaLOG] 15 units SQ TIDWM 60 Days Insulin NPH, HUMAN [HumuLIN N] 90 unit SQ BID 60 Days Home Medications: Atorvastatin [Lipitor] 40 mg PO HS 08/05/15 [History] Docusate [Colace] 200 mg PO BID 08/05/15 [History] Donepezil [Aricept] 10 mg PO HS 08/05/15 [History] Duloxetine [Cymbalta] 60 mg PO DAILY 08/05/15 [History] Lactulose 20 gm PO BID 08/05/15 [History] Levothyroxine [Synthroid] 175 mcg PO DAILY 08/05/15 [History] Aspirin 81 mg PO DAILY 03/18/16 [History] Metoprolol Tartrate [Lopressor] 50 mg PO BID 03/18/16 [History] Furosemide [Lasix] 40 mg PO DAILY 07/30/16 [History] Glucagon,Human Recombinant [Glucagon Emergency Kit] 1 mg IJ AD 07/30/16 [History ] Mirabegron [Myrbetriq] 50 mg PO DAILY 07/30/16 [History] OxyCODONE Immed Rel [Roxicodone 5 MG] 5 - 10 mg PO Q6HR PRN #40 tablet 10/22/16 [Rx] Fluticasone Propionate Nasal [Flonase] 1 spr NS DAILY PRN 10/23/16 [History] Guaifenesin [Iophen Nr] 200 mg PO BID PRN 10/23/16 [History] HYDROcodone/Acet 5/325 mg [[place] 5-325 mg] 1 tab PO Q6H PRN 10/23/16 [History] Insulin Glargine,Hum.rec.anlog [Lantus Solostar] 30 unit SQ 0800 10/23/16 [ History] Insulin Glargine,Hum.rec.anlog [Lantus Solostar] 38 unit SQ 1900 10/23/16 [ History] Lidocaine Patch [Lidoderm 5% patch] 1 each TP DAILY 10/23/16 [History] Loratadine [Allergy Relief] 10 mg PO DAILY 10/23/16 [History] OxyCODONE/APAP 5/325 [Percocet 5/325 MG] 1 each PO Q6HR PRN 10/23/16 [History] Ranitidine HCl [Zantac] 150 mg PO BID 10/23/16 [History] Sodium Chloride [[place] Saline] 50 ml NS PRN PRN 10/23/16 [History] Tizanidine HCl 4 mg PO BID 10/23/16 [History] Amlodipine Besylate 10 mg PO DAILY 12/04/16 [History] Cyclobenzaprine [Flexeril] 5 mg PO TID PRN 12/04/16 [History] Lisinopril [Zestril] 20 mg PO DAILY 12/04/16 [History] HydrALAZINE 10 mg PO BID #60 tablet 12/07/16 [Rx] Insulin LISPRO [HumaLOG] 15 units SQ TIDWM 60 Days 12/07/16 [Rx] Insulin NPH, HUMAN [HumuLIN N] 90 unit SQ BID 60 Days 12/07/16 [Rx] Allergies/Adverse Reactions: Allergies adhesive tape Allergy (Verified 12/04/16 13:46) Hives pregabalin [From Lyrica] Allergy (Verified 12/04/16 13:46) Swelling of Lip/Tongue/Throat Sulfa (Sulfonamide Antibiotics) Allergy (Verified 12/04/16 13:46) PER PT UNKNOWN REACTION Certification: Further, I certify that my clinical findings support that this patient is homebound (i.e. absences from home require considerable and taxing effort and are for medical reasons or [employer] services or infrequently or short duration when for other reasons) because: Homebound Reason: Patient requires assistance of a person or device to safely leave home, Leaving home requires considerable and taxing effort due to condition Attestation: My signature below is to certify that this patient is under my care and that I, or nurse practitioner, or a physician's research program assistant working with me, has a face-to -face encounter with this patient.
== END 2016-12-07 09:36 | disposition home or self-care (01) | DRG 637 ==
LOC: 3ANU 22:56 → EMEROO 22:56 → SUATTDRO 12-04 02:38 → 3ANU 12-04 02:49 → 2NNU 12-04 03:49
PROVIDERS: ADMIT Pediatrics; ATTEND Family Medicine

== ENCOUNTER 2017-04-07 16:32 | Inpatient (IN) ==
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
[2017-04-07] MEDS ORDERED: Naloxone 0.4 MG/ML INJ IVP ONE (17:50)
[2017-04-07 18:34] LABS: Basophils % 0.5 %
[2017-04-07 18:36] LABS: Eosinophils # 0.3 K/mcL (0.0-0.6); Eosinophils % 3.3 %; Hematocrit 27.8 % (37.5-50.1); Immature Granulocytes % 0.7 % (0-4); Lymphocytes # 1.2 K/mcL (0.6-4.6); Lymphocytes % 14.9 %; Mean Corpuscular HGB Conc 28.4 g/dL (31.6-35.5); Mean Corpuscular Hemoglobin 21.4 pg (28.0-33.3); Mean Corpuscular Volume 75.3 fL (83.0-100.0); Mean Platelet Volume 11.8 fL (9.4-12.4); Monocytes # 0.7 K/mcL (0.0-1.3); Monocytes % 8.6 %; Platelet Count 106 K/mcL (140-400); Red Blood Count 3.69 M/mcL (4.19-5.50); Red Cell Distribution Width 17.8 % (11.5-14.5)
[2017-04-07 18:46] LABS: Calcium 8.9 mg/dL (8.6-10.8); Potassium 4.9 mEq/L (3.5-4.5)
[2017-04-07 18:49] LABS: Hemoglobin 7.9 g/dL (12.9-16.9)
[2017-04-07 18:51] LABS: Hypochromasia Present (Not Present)
[2017-04-07 19:23] LABS: Bilirubin,Urine Negative (Negative); Blood,Urine Negative (Negative); Clarity,Urine Clear (Clear); Color,Urine Yellow (Yellow); Glucose,Urine (UA) Normal (Normal); Ketones,Urine Negative (Negative); Leukocyte Esterase,Urine Negative (Negative); Nitrite,Urine Negative (Negative); PH,Urine 5.5 pH Units (5.0-8.0); Protein,Urine 30 mg/dL (Neg-Trace); Specific Gravity,Urine 1.018 (1.010-1.025); Urobilinogen,Urine Normal (Normal)
[2017-04-07 19:25] LABS: Bacteria,Urine None Seen per hpf (None-Few); Hyaline Casts,Urine None Seen per lpf (None-Few); RBC,Urine 0-3 per hpf (0-3); Squamous Epithelial Cell,Urine Moderate per lpf (None-Few)
--- NOTE | 2017-04-07 19:45 | Emergency Department Note ---
Disposition Clinical Impression: Fall Qualifiers: Encounter type: initial encounter Qualified Code(s): W19.XXXA - Unspecified fall, initial encounter Cellulitis Qualifiers: Site of cellulitis: extremity Site of cellulitis of extremity: lower extremity Laterality: right Qualified Code(s): L03.115 - Cellulitis of right lower limb Altered mental status Qualifiers: Altered mental status type: unspecified Qualified Code(s): R41.82 - Altered mental status, unspecified Disposition: Admitted As Inpatient General Adult HPI - General Chief complaint: ED Fall Stated complaint: fall Time Seen by Provider: 04/07/17 16:34 Source: patient Mode of arrival: EMS Limitations: no limitations - History of Present Illness Pain Scale: 8 - Related Data Home Medications Medication Instructions Recorded Confirmed Atorvastatin [Lipitor] 40 mg PO HS 08/05/15 12/04/16 DULoxetine [Cymbalta] 60 mg PO DAILY 08/05/15 12/04/16 Docusate [Colace] 200 mg PO BID 08/05/15 12/04/16 Donepezil [Aricept] 10 mg PO HS 08/05/15 12/04/16 Lactulose 20 gm PO BID 08/05/15 12/04/16 Levothyroxine [Synthroid] 175 mcg PO DAILY 08/05/15 12/04/16 Aspirin 81 mg PO DAILY 03/18/16 12/04/16 Metoprolol Tartrate [Lopressor] 50 mg PO BID 03/18/16 12/04/16 Furosemide [Lasix] 40 mg PO DAILY 07/30/16 12/04/16 Glucagon,Human Recombinant 1 mg IJ AD 07/30/16 10/23/16 [Glucagon Emergency Kit] Mirabegron [Myrbetriq] 50 mg PO DAILY 07/30/16 12/04/16 Fluticasone Propionate Nasal 1 spr NS DAILY PRN 10/23/16 10/23/16 [Flonase] Guaifenesin [Iophen Nr] 200 mg PO BID PRN 10/23/16 10/23/16 HYDROcodone/Acet 5/325 mg [Kelly 1 tab PO Q6H PRN 10/23/16 12/04/16 5-325 mg] Insulin Glargine,Hum.rec.anlog 30 unit SQ 0800 10/23/16 10/23/16 [Lantus Solostar] Insulin Glargine,Hum.rec.anlog 38 unit SQ 1900 10/23/16 10/23/16 [Lantus Solostar] Lidocaine Patch [Lidoderm 5% patch] 1 each TP DAILY 10/23/16 12/04/16 Loratadine [Allergy Relief] 10 mg PO DAILY 10/23/16 10/23/16 OxyCODONE/APAP 5/325 [Percocet 1 each PO Q6HR PRN 10/23/16 12/04/16 5/325 MG] Ranitidine HCl [Zantac] 150 mg PO BID 10/23/16 12/04/16 Sodium Chloride [Maurice Saline] 50 ml NS PRN PRN 10/23/16 10/23/16 Tizanidine HCl 4 mg PO BID 10/23/16 10/23/16 Amlodipine Besylate 10 mg PO DAILY 12/04/16 12/04/16 Cyclobenzaprine [Flexeril] 5 mg PO TID PRN 12/04/16 12/04/16 Lisinopril [Zestril] 20 mg PO DAILY 12/04/16 12/04/16 Previous Rx's Medication Instructions Recorded OxyCODONE Immed Rel [Roxicodone 5 5 - 10 mg PO Q6HR PRN #40 tablet 10/22/16 MG] Insulin LISPRO [HumaLOG] 15 units SQ TIDWM 60 Days 12/07/16 Insulin NPH, HUMAN [HumuLIN N] 90 unit SQ BID 60 Days 12/07/16 hydrALAZINE [HydrALAZINE] 10 mg PO BID #60 tablet 12/07/16 Allergies Allergy/AdvReac Type Severity Reaction Status Date / Time adhesive tape Allergy Hives Verified 12/27/16 11:58 pregabalin [From Lyrica] Allergy Swelling Verified 12/27/16 11:58 of Lip/Tongue/Throat Sulfa (Sulfonamide Allergy PER PT Verified 12/27/16 11:58 Antibiotics) UNKNOWN REACTION Constitutional: Denies: fever, chills, weakness, weight change Eyes: Denies: eye pain, eye discharge, vision change ENT ED: Denies: ear pain, throat pain, dental pain, hearing loss, epistaxis, congestion, dysphagia Cardiovascular: Denies: chest pain, palpitations, dyspnea on exertion, edema, syncope Respiratory: Denies: cough, dyspnea, wheezes, hemoptysis, stridor Gastrointestinal: Denies: abdominal pain, nausea, vomiting, diarrhea, constipation, hematemesis, melena, hematochezia Genitourinary: Denies: urgency, dysuria, frequency, hematuria Musculoskeletal: Reports: back pain, arthralgia. Denies: neck pain, myalgia Integumentary: Denies: rash, abrasion, lesions Neurological: Denies: headache, weakness, numbness, paresthesias, confusion, abnormal gait, vertigo Psychiatric: Denies: anxiety, depression, suicidal thoughts, homicidal thoughts , auditory hallucinations, visual hallucinations Endocrine: Denies: fatigue Hematological/Lymphatic: Denies: easy bleeding, easy bruising Allergic/Immunologic: Denies: facial swelling, urticaria Past Medical History - Past Medical History Medical history: Reports: cancer, CVA, diabetes, hypertension, renal disease, thyroid disease, syncope Surgical history: Reports: appendectomy, orthopedic, other, thyroidectomy, other Psychiatric history: Reports: anxiety, depression - Social History Smoking Status: Never smoker Smokeless Tobacco Status: No Alcohol use: Reports: none Drug use: Reports: none Physical Exam Patient arousable to voice. Patient answers all questions properly. Patient states increasing pain in the back and right lower leg. Patient has what appears to be chronic changes that are worsening in nature over the last week per patient. Erythema around the anterior mao of the lower leg. Abdominal pain pump with no tenderness to palpation of the abdomen pelvis. Patient in no current distress. - General Limitations: no limitations General appearance: alert, in no apparent distress Course - Reevaluation(s) Reevaluation #1: Patient taken over at signout from Dr. Carcamo. Patient presents from a fall from home. Patient has had increasing pain in the right lower extremity. After the fall the patient had been experiencing back hip knee and ankle pain. Patient was initially worked up and evaluated for fall with no apparent fracture or acute injury. However the patient does have concern for cellulitis of the right lower leg. During the patient's stay he did require some Narcan which is likely due to having both Percocet and Kelly on his medication list. The patient is arousable to stimulation at this time however the patient states that he lives alone and normally gets around wearing his prosthesis. Due to the BKA, worsening right leg pain and concern for cellulitis as well as his living alone- the patient will be brought in for further evaluation and treatment. - Consultations Consultation #1: Discussed with Dr. ROY. Patient accepted for admission. Vital Signs Temperature 98.3 F 04/07/17 16:39 Pulse Rate 71 04/07/17 16:39 Respiratory Rate 16 04/07/17 16:39 Blood Pressure 145/67 04/07/17 16:39 O2 Sat by Pulse Oximetry 95 04/07/17 16:39 Temperature 98.3 F 04/07/17 16:39 Pulse Rate 71 04/07/17 19:18 Respiratory Rate 12 04/07/17 19:18 Blood Pressure 119/62 04/07/17 19:18 O2 Sat by Pulse Oximetry 98 04/07/17 19:18 Oxygen Delivery Oxygen Delivery Nasal Cannula Medical Decision Making - Lab Data Result diagrams: 04/07/17 18:27 04/07/17 18:27 Lab Results 04/07/17 04/07/17 04/07/17 Range/Units 18:27 18:27 18:27 WBC 8.3 (4.3-11.1) K/mcL RBC 3.69 L (4.19-5.50) M/mcL Hgb 7.9 L (12.9-16.9) g/dL Hct 27.8 L (37.5-50.1) % MCV 75.3 L (83.0-100.0) fL MCH 21.4 L (28.0-33.3) pg MCHC 28.4 L (31.6-35.5) g/dL RDW 17.8 H (11.5-14.5) % Plt Count 106 L (140-400) K/mcL MPV 11.8 (9.4-12.4) fL Immature Gran % 0.7 (0-4) % Seg Neutrophils % 72.0 % Lymphocytes % 14.9 % Monocytes % 8.6 % Eosinophils % 3.3 % Basophils % 0.5 % Neutrophils # 6.0 (1.6-8.9) K/mcL Lymphocytes # 1.2 (0.6-4.6) K/mcL Monocytes # 0.7 (0.0-1.3) K/mcL Eosinophils # 0.3 (0.0-0.6) K/mcL Basophils # 0.0 (0.0-0.2) K/mcL Hypochromasia Present A (Not Present) Sodium 137 (136-145) mEq/L Potassium 4.9 H (3.5-4.5) mEq/L Chloride 102 (98-109) mEq/L Carbon Dioxide 28 (19-29) mEq/L BUN 29 H (8-26) mg/dL Creatinine 1.64 H (0.72-1.25) mg/dL Est GFR ( Amer) 51 L (> 60) Est GFR (Non-Af Amer) 42 L (> 60) BUN/Creatinine Ratio 18 (6-26) Glucose 203 H (70-99) mg/dL Calculated Osmolality 296 (280-300) Calcium 8.9 (8.6-10.8) mg/dL Troponin I 0.02 (0-0.03) ng/mL Urine Color (Yellow) Urine Clarity (Clear) Urine pH (5.0-8.0) pH Units Ur Specific [place] (1.010-1.025) Urine Protein (Neg-Trace) mg/dL Urine Glucose (UA) (Normal) mg/dL Urine Ketones (Negative) mg/dL Urine Blood (Negative) Urine Nitrite (Negative) Urine Bilirubin (Negative) Urine Urobilinogen (Normal) mg/dL Ur Leukocyte Esterase (Negative) Urine Microscopic RBC (0-3) per hpf Urine Microscopic WBC (0-3) per hpf Ur Squamous Epith Cells (None-Few) per lpf Urine Bacteria (None-Few) per hpf Hyaline Casts (None-Few) per lpf Ur Culture Indicated? (NO) Urine Opiates Screen (Hosffx=826) ng/mL Ur Barbiturates Screen (Skmbqo=536) ng/mL Ur Phencyclidine Scrn (Cutoff=25) ng/mL Ur Amphetamines Screen (Atpezw=2999) ng/mL U Benzodiazepines Scrn (Soavla=470) ng/mL Urine Cocaine Screen (Cutoff= 300) ng/mL U Marijuana (THC) Screen (Cutoff = 50) ng/mL 04/07/17 04/07/17 Range/Units 19:10 19:10 WBC (4.3-11.1) K/mcL RBC (4.19-5.50) M/mcL Hgb (12.9-16.9) g/dL Hct (37.5-50.1) % MCV (83.0-100.0) fL MCH (28.0-33.3) pg MCHC (31.6-35.5) g/dL RDW (11.5-14.5) % Plt Count (140-400) K/mcL MPV (9.4-12.4) fL Immature Gran % (0-4) % Seg Neutrophils % % Lymphocytes % % Monocytes % % Eosinophils % % Basophils % % Neutrophils # (1.6-8.9) K/mcL Lymphocytes # (0.6-4.6) K/mcL Monocytes # (0.0-1.3) K/mcL Eosinophils # (0.0-0.6) K/mcL Basophils # (0.0-0.2) K/mcL Hypochromasia (Not Present) Sodium (136-145) mEq/L Potassium (3.5-4.5) mEq/L Chloride (98-109) mEq/L Carbon Dioxide (19-29) mEq/L BUN (8-26) mg/dL Creatinine (0.72-1.25) mg/dL Est GFR ( Amer) (> 60) Est GFR (Non-Af Amer) (> 60) BUN/Creatinine Ratio (6-26) Glucose (70-99) mg/dL Calculated Osmolality (280-300) Calcium (8.6-10.8) mg/dL Troponin I (0-0.03) ng/mL Urine Color Yellow (Yellow) Urine Clarity Clear (Clear) Urine pH 5.5 (5.0-8.0) pH Units Ur Specific [place] 1.018 (1.010-1.025) Urine Protein 30 H (Neg-Trace) mg/dL Urine Glucose (UA) Normal (Normal) mg/dL Urine Ketones Negative (Negative) mg/dL Urine Blood Negative (Negative) Urine Nitrite Negative (Negative) Urine Bilirubin Negative (Negative) Urine Urobilinogen Normal (Normal) mg/dL Ur Leukocyte Esterase Negative (Negative) Urine Microscopic RBC 0-3 (0-3) per hpf Urine Microscopic WBC 3-5 H (0-3) per hpf Ur Squamous Epith Cells Moderate H (None-Few) per lpf Urine Bacteria None Seen (None-Few) per hpf Hyaline Casts None Seen (None-Few) per lpf Ur Culture Indicated? NO (NO) Urine Opiates Screen Negative (Jvebto=683) ng/mL Ur Barbiturates Screen Negative (Vrjjpa=962) ng/mL Ur Phencyclidine Scrn Negative (Cutoff=25) ng/mL Ur Amphetamines Screen Negative (Scjrmi=4068) ng/mL U Benzodiazepines Scrn Negative (Wgisqd=985) ng/mL Urine Cocaine Screen Negative (Cutoff= 300) ng/mL U Marijuana (THC) Screen Negative (Cutoff = 50) ng/mL Attestation Statement - Attestation Attestation: I, Charanjit Malone MD, personally evaluated this patient and discussed their management with the resident physician. I reviewed the resident's note and agree with the documented findings, medical decision making, and plan of care. This patient was signed out at shift change from Dr. Carcamo. Please refer to his note for complete details of history and physical examination. Patient is a 71-year-old male with a left BKA who lives alone. He presents today after a fall. He also was noted to have some MENTAL status which improved with Narcan. He also has some cellulitis of the right lower extremity. He denies fever. On examination patient is a well-developed elderly male in no acute distress. He is alert but is a little drowsy and slow to respond and answer questions. Breath sounds are equal bilaterally. Heart regular rate and rhythm. Abdomen is soft and nontender with normal bowel sounds. There is an area of cellulitis to the lower leg. No open wounds noted. Imaging reviewed, no acute abnormalities. Head CT negative. Labs reviewed. The hospitalist, Dr. Roy, was consulted and accepted admission of the patient.
[2017-04-07] MEDS ORDERED: 0.9 % Sodium Chloride 1,000 ML IVC ONE (19:53)
[2017-04-07 20:04] LABS: Amphetamine Screen,Urine Negative ng/mL (Cutoff=1000); Barbiturate Screen,Urine Negative ng/mL (Cutoff=200); Benzodiazepines Screen,Urine Negative ng/mL (Cutoff=200); Cannabinoid Screen,Urine Negative ng/mL (Cutoff = 50); Cocaine Screen,Urine Negative ng/mL (Cutoff= 300); Opiate Screen,Urine Negative ng/mL (Cutoff=300); Phencyclidine Screen,Urine Negative ng/mL (Cutoff=25)
[2017-04-07] MEDS ORDERED: Naloxone 0.4 MG/ML INJ IVP PRN (20:12)
[2017-04-07] MEDS ORDERED: Ondansetron 4 MG/2 ML VIAL IVP PRN (20:12)
[2017-04-07] MEDS ORDERED: Vancomycin 1,750 MG in D5% in Water 250 ML IVPB SCH (22:00)
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
[2017-04-07] MEDS: 0.9 % Sodium Chloride 1,000 ML IVC SCH (22:14)
[2017-04-07] MEDS ORDERED: *HR* Dextrose 50 % in Water (Syg) 50 ML SYRINGE IVP PRN (22:27)
[2017-04-07] MEDS ORDERED: Dextrose Gel 15 GM PO PRN ×2 (22:27)
[2017-04-07] MEDS ORDERED: D5% in Water 1,000 ML IVC PRN (22:27)
[2017-04-07] MEDS: Vancomycin 1,750 MG in D5% in Water 500 ML IVPB SCH (22:52)
[2017-04-08] MEDS: *HR* Heparin 5,000 UNIT/ML VIAL SQ SCH ×4 (00:22→23:33)
[2017-04-08 05:13] LABS: % Iron Saturation 7 % (20-55); Iron 24 mcg/dL (65-175); Transferrin 232 mg/dL (174-364)
[2017-04-08 05:34] LABS: Ferritin 16 ng/ml (22-275)
[2017-04-08 05:48] LABS: Folate 11.5 ng/mL (7.0-31.4)
[2017-04-08] MEDS: Insulin LISPRO 300 UNITS/3 ML VIAL SQ SCH ×4 (09:18→21:21)
[2017-04-08] MEDS: Vancomycin 1,750 MG in D5% in Water 500 ML IVPB SCH ×2 (11:01→23:33)
--- NOTE | 2017-04-08 13:55 | Internal Med Progress Note ---
Date of Encounter: 04/08/17 Time of Encounter: 10:00 - Assessment and plan (1) Cellulitis Current Visit: No Status: Acute Assessment and plan: Continue vancomycin treatment. Closely monitor skin change. Patient is at high risk of because he is on vancomycin, needed close monitoring. Qualifiers: Site of cellulitis: extremity Site of cellulitis of extremity: lower extremity Laterality: right Qualified Code(s): L03.115 - Cellulitis of right lower limb (2) Diabetes Current Visit: No Status: Chronic Assessment and plan: Continue basal and sliding scale insulin. 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 Review patient's chart, he has anemia since 2016 after shoulder surgery. Possibly due to surgical blood loss. - We will give iron pill supplement Qualifiers: Anemia type: iron deficiency Iron deficiency anemia type: other iron deficiency Qualified Code(s): D50.8 - Other iron deficiency anemias (4) Hypothyroidism Current Visit: Yes Status: Chronic Assessment and plan: Continue home medications Qualifiers: Hypothyroidism type: acquired Qualified Code(s): E03.9 - Hypothyroidism, unspecified (5) CKD (chronic kidney disease), stage III Current Visit: No Status: Acute Assessment and plan: Stable. Creatinine level is about his baseline. Avoid nephrotoxic medications. (6) Fall Current Visit: Yes Status: Acute Assessment and plan: Mechanical fall. No obvious injury. PTOT evaluation Qualifiers: Encounter type: initial encounter Qualified Code(s): W19.XXXA - Unspecified fall, initial encounter (7) DVT prophylaxis Current Visit: No Status: Acute Assessment and plan: Heparin subcutaneously - Time Spent With Patient Greater than 35 minutes - Subjective Interval history: Patient is a 71-year-old male admitted for right lower leg cellulitis. Past medical history is significant for diabetes, hypertension, renal disease, thyroid disease. Patient was seen and examined. Compliant of right lower leg swelling and pain. There is a redness and warmth on skin, consistent with cellulitis. Vitals are stable. We will continue vancomycin IV. - Constitutional Vitals: Temp Pulse Resp BP Pulse Ox 98.4 F 89 16 136/71 94 04/08/17 11:10 04/08/17 11:10 04/08/17 11:10 04/08/17 11:10 04/08/17 11:10 General appearance: Present: A&O X 3, no acute distress, answers questions appropriately - Head Head exam: Present: atraumatic, normocephalic - Eye Eye exam: Present: PERRL, conjuntiva pink, sclera anicteric Pupils: Present: PERRL - Neck Neck exam general surgery: Present: supple, trachea midline. Absent: lymphadenopathy - Respiratory Respiratory exam: Present: CTAB. Absent: accessory muscle use, rales, rhonchi, wheezes - Cardiovascular Cardiovascular exam: Present: RRR, +S1, +S2. Absent: diastolic murmur, gallop, rubs, systolic murmur - GI/Abdominal GI/Abdominal exam: Present: normal bowel sounds, soft, no peritoneal signs. Absent: distended, tenderness - Extremities Exam Extremities exam: Present: warm, radial pulses palpable and symetrical. Absent : calf tenderness, cyanotic, pedal edema Additional comments: Left leg AKA. Right lower leg skin redness, warmth, with tenderness. - Neurological Exam Neurological exam: Present: CN II-XII intact, oriented X3, no focal deficits. Absent: pronater drift, facial droop, speech deficit - Skin Skin exam: Present: dry, intact Internal Medicine: Result - Labs CBC & Chem 7: 04/07/17 18:27 04/07/17 18:27 Consult Discharge Plan - Plan Referrals: NO,PCP [Primary Care Provider] -
[2017-04-08] MEDS ORDERED: Fluticasone Propionate Nasal 50 MCG/SPRAY BOTTLE NS PRN (14:26)
[2017-04-08] MEDS: 0.9 % Sodium Chloride 1,000 ML IVC SCH (15:50)
[2017-04-08] MEDS: Gabapentin 300 MG CAPSULE PO SCH ×2 (16:32→21:33)
[2017-04-08] MEDS: amLODIPine 5 MG TABLET PO SCH (16:33)
[2017-04-08] MEDS ORDERED: Insulin DETEMIR 100 UNIT/ML X5UNITS SQ SCH (21:00)
[2017-04-08] MEDS: hydrALAZINE 10 MG TABLET PO SCH (21:33)
[2017-04-08] MEDS: Famotidine 20 MG TABLET PO SCH (21:33)
[2017-04-09] MEDS: 0.9 % Sodium Chloride 1,000 ML IVC SCH ×2 (05:54→22:49)
[2017-04-09 07:55] LABS: Basophils % 0.6 %; Hemoglobin 7.8 g/dL (12.9-16.9); Nucleated Red Blood Cells 0.5 /100 WBC (0)
[2017-04-09 07:57] LABS: Basophils # 0.1 K/mcL (0.0-0.2); Eosinophils # 0.5 K/mcL (0.0-0.6); Hematocrit 26.8 % (37.5-50.1); Immature Granulocytes % 0.8 % (0-4); Lymphocytes # 1.7 K/mcL (0.6-4.6); Lymphocytes % 20.9 %; Mean Corpuscular HGB Conc 29.1 g/dL (31.6-35.5); Mean Corpuscular Hemoglobin 21.6 pg (28.0-33.3); Mean Corpuscular Volume 74.2 fL (83.0-100.0); Monocytes # 0.8 K/mcL (0.0-1.3); Monocytes % 9.8 %; Red Blood Count 3.61 M/mcL (4.19-5.50); Red Cell Distribution Width 17.6 % (11.5-14.5); Segmented Neutrophils % 61.9 %
[2017-04-09 08:14] LABS: Calcium 8.5 mg/dL (8.6-10.8); Potassium 4.9 mEq/L (3.5-4.5)
[2017-04-09] MEDS: Gabapentin 300 MG CAPSULE PO SCH ×3 (08:27→20:59)
[2017-04-09] MEDS: Famotidine 20 MG TABLET PO SCH ×2 (08:27→21:00)
[2017-04-09] MEDS: hydrALAZINE 10 MG TABLET PO SCH ×2 (08:28→20:59)
[2017-04-09] MEDS: Aspirin 81 MG TAB.CHEW PO SCH (08:28)
[2017-04-09] MEDS: Loratadine 10 MG TABLET PO SCH (08:28)
[2017-04-09] MEDS: amLODIPine 5 MG TABLET PO SCH (08:29)
[2017-04-09] MEDS: *HR* Heparin 5,000 UNIT/ML VIAL SQ SCH ×3 (08:30→23:55)
[2017-04-09] MEDS: Furosemide 40 MG TABLET PO SCH (08:30)
[2017-04-09] MEDS: Insulin LISPRO 300 UNITS/3 ML VIAL SQ SCH ×4 (08:34→20:54)
[2017-04-09 08:44] LABS: Platelet Count 99 K/mcL (140-400)
[2017-04-09 08:45] LABS: Large Platelets Present (Not Present); Platelet Estimate Slight Decrease (Normal)
[2017-04-09] MEDS: Acetaminophen 325 MG TABLET PO PRN ×2 (08:55→20:59)
--- NOTE | 2017-04-09 13:53 | Internal Med Progress Note ---
Date of Encounter: 04/09/17 Time of Encounter: 10:00 - Assessment and plan (1) Cellulitis Current Visit: No Status: Acute Assessment and plan: Continue vancomycin treatment. Improved after treatment. Closely monitor skin change. Patient is at high risk of because he is on vancomycin, needed close monitoring. Qualifiers: Site of cellulitis: extremity Site of cellulitis of extremity: lower extremity Laterality: right Qualified Code(s): L03.115 - Cellulitis of right lower limb (2) Diabetes Current Visit: No Status: Chronic Assessment and plan: Continue basal and sliding scale insulin. Close monitor glucose level, adjust the insulin dose accordingly. 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 Review patient's chart, he has anemia since 2016 after shoulder surgery. Possibly due to surgical blood loss. - We will give iron pill supplement Qualifiers: Anemia type: iron deficiency Iron deficiency anemia type: other iron deficiency Qualified Code(s): D50.8 - Other iron deficiency anemias (4) Hypothyroidism Current Visit: Yes Status: Chronic Assessment and plan: Continue home medications Qualifiers: Hypothyroidism type: acquired Qualified Code(s): E03.9 - Hypothyroidism, unspecified (5) CKD (chronic kidney disease), stage III Current Visit: No Status: Acute Assessment and plan: Stable. Creatinine level is about his baseline. Avoid nephrotoxic medications. (6) Fall Current Visit: Yes Status: Acute Assessment and plan: Mechanical fall. No obvious injury. PTOT evaluation Qualifiers: Encounter type: initial encounter Qualified Code(s): W19.XXXA - Unspecified fall, initial encounter (7) DVT prophylaxis Current Visit: No Status: Acute Assessment and plan: Heparin subcutaneously - Time Spent With Patient Greater than 35 minutes - Subjective Interval history: Patient is a 71-year-old male admitted for right lower leg cellulitis. Past medical history is significant for diabetes, hypertension, renal disease, thyroid disease. Patient was seen and examined. Still has right lower leg swelling and pain. Redness is less. Vitals are stable. We will continue vancomycin IV. Will order Doppler to rule out DVT. - Constitutional Vitals: Temp Pulse Resp BP Pulse Ox 98.2 F 71 14 118/62 92 04/09/17 11:34 04/09/17 11:34 04/09/17 11:34 04/09/17 11:34 04/09/17 11:34 General appearance: Present: A&O X 3, no acute distress, answers questions appropriately - Head Head exam: Present: atraumatic, normocephalic - Eye Eye exam: Present: PERRL, conjuntiva pink, sclera anicteric Pupils: Present: PERRL - Neck Neck exam general surgery: Present: supple, trachea midline. Absent: lymphadenopathy - Respiratory Respiratory exam: Present: CTAB. Absent: accessory muscle use, rales, rhonchi, wheezes - Cardiovascular Cardiovascular exam: Present: RRR, +S1, +S2. Absent: diastolic murmur, gallop, rubs, systolic murmur - GI/Abdominal GI/Abdominal exam: Present: normal bowel sounds, soft, no peritoneal signs. Absent: distended, tenderness - Extremities Exam Extremities exam: Present: warm, radial pulses palpable and symetrical. Absent : calf tenderness, cyanotic, pedal edema Additional comments: Lt AKA. Right lower leg with skin redness, with tenderness - Neurological Exam Neurological exam: Present: CN II-XII intact, oriented X3, no focal deficits. Absent: pronater drift, facial droop, speech deficit - Skin Skin exam: Present: dry, intact Internal Medicine: Result - Labs CBC & Chem 7: 04/09/17 06:56 04/09/17 06:56 Labs: Short CBC 04/09/17 Range/Units 06:56 WBC 8.0 (4.3-11.1) K/mcL Hgb 7.8 L (12.9-16.9) g/dL Hct 26.8 L (37.5-50.1) % Plt Count 99 L (140-400) K/mcL Neutrophils # 5.0 (1.6-8.9) K/mcL BMP 04/09/17 06:56 Sodium 139 Potassium 4.9 H Chloride 102 Carbon Dioxide 27 BUN 25 Creatinine 1.49 H Glucose 190 H Calcium 8.5 L Consult Discharge Plan - Plan Referrals: NO,PCP [Primary Care Provider] -
[2017-04-09] MEDS ORDERED: Insulin DETEMIR 100 UNIT/ML X5UNITS SQ SCH (13:55)
[2017-04-09] MEDS: Vancomycin 1,750 MG in D5% in Water 500 ML IVPB SCH (16:56)
[2017-04-10 05:45] LABS: Basophils # 0.1 K/mcL (0.0-0.2); Basophils % 0.8 %; Eosinophils # 0.5 K/mcL (0.0-0.6); Eosinophils % 6.6 %; Hematocrit 27.3 % (37.5-50.1); Hemoglobin 7.6 g/dL (12.9-16.9); Immature Granulocytes % 1.8 % (0-4); Lymphocytes # 1.5 K/mcL (0.6-4.6); Lymphocytes % 20.9 %; Mean Corpuscular HGB Conc 27.8 g/dL (31.6-35.5); Mean Corpuscular Hemoglobin 21.3 pg (28.0-33.3); Mean Corpuscular Volume 76.5 fL (83.0-100.0); Mean Platelet Volume 12.5 fL (9.4-12.4); Monocytes # 0.6 K/mcL (0.0-1.3); Monocytes % 8.7 %; Neutrophils # 4.4 K/mcL (1.6-8.9); Red Blood Count 3.57 M/mcL (4.19-5.50); Red Cell Distribution Width 17.5 % (11.5-14.5); Segmented Neutrophils % 61.2 %
[2017-04-10 05:50] LABS: Platelet Count 99 K/mcL (140-400)
[2017-04-10 05:59] LABS: BUN/Creatinine Ratio 19 (6-26); Blood Urea Nitrogen 24 mg/dL (8-26); Calcium 8.8 mg/dL (8.6-10.8); Carbon Dioxide 26 mEq/L (19-29); Chloride 104 mEq/L (98-109); Glucose 209 mg/dL (70-99); Osmolality,Calculated 302 (280-300); Potassium 4.2 mEq/L (3.5-4.5); Sodium 141 mEq/L (136-145); eGFR For African Americans > 60 (> 60); eGFR For Non-African Americans 56 (> 60)
[2017-04-10 06:16] LABS: Anisocytosis 1+ (Not Present); Hypochromasia Present (Not Present); Platelet Estimate Decreased (Normal); Polychromasia 1+ (Not Present)
[2017-04-10] MEDS: Gabapentin 300 MG CAPSULE PO SCH ×3 (07:44→20:52)
[2017-04-10] MEDS: Aspirin 81 MG TAB.CHEW PO SCH (07:44)
[2017-04-10] MEDS: Furosemide 40 MG TABLET PO SCH (07:44)
[2017-04-10] MEDS: Loratadine 10 MG TABLET PO SCH (07:44)
[2017-04-10] MEDS: amLODIPine 5 MG TABLET PO SCH (07:45)
[2017-04-10] MEDS: Famotidine 20 MG TABLET PO SCH ×2 (07:45→20:51)
[2017-04-10] MEDS: hydrALAZINE 10 MG TABLET PO SCH ×2 (07:45→20:52)
[2017-04-10] MEDS: *HR* Heparin 5,000 UNIT/ML VIAL SQ SCH ×3 (07:46→23:55)
[2017-04-10] MEDS: Insulin LISPRO 300 UNITS/3 ML VIAL SQ SCH ×4 (07:46→20:53)
[2017-04-10] MEDS ORDERED: Insulin DETEMIR 100 UNIT/ML X5UNITS SQ ONE (12:40)
--- NOTE | 2017-04-10 15:30 | Internal Med Progress Note ---
Date of Encounter: 04/10/17 Time of Encounter: 10:00 - Assessment and plan (1) Cellulitis Current Visit: No Status: Acute Assessment and plan: Continue vancomycin treatment. Improved after treatment. Closely monitor skin change. Patient is at high risk of because he is on vancomycin, needed close monitoring. Qualifiers: Site of cellulitis: extremity Site of cellulitis of extremity: lower extremity Laterality: right Qualified Code(s): L03.115 - Cellulitis of right lower limb (2) Diabetes Current Visit: No Status: Chronic Assessment and plan: Continue basal and sliding scale insulin. Close monitor glucose level, adjust the insulin dose accordingly. 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 Review patient's chart, he has anemia since 2016 after shoulder surgery. Possibly due to surgical blood loss. - We will give iron pill supplement - Hgb stable during hospitalization. Qualifiers: Anemia type: iron deficiency Iron deficiency anemia type: other iron deficiency Qualified Code(s): D50.8 - Other iron deficiency anemias (4) Hypothyroidism Current Visit: Yes Status: Chronic Assessment and plan: Continue home medications Qualifiers: Hypothyroidism type: acquired Qualified Code(s): E03.9 - Hypothyroidism, unspecified (5) CKD (chronic kidney disease), stage III Current Visit: No Status: Acute Assessment and plan: Stable. Creatinine level is about his baseline. Avoid nephrotoxic medications. (6) Fall Current Visit: Yes Status: Acute Assessment and plan: Mechanical fall. No obvious injury. PTOT evaluation Qualifiers: Encounter type: initial encounter Qualified Code(s): W19.XXXA - Unspecified fall, initial encounter (7) DVT prophylaxis Current Visit: No Status: Acute Assessment and plan: Heparin subcutaneously - Time Spent With Patient Greater than 35 minutes - Subjective Interval history: Patient is a 71-year-old male admitted for right lower leg cellulitis. Past medical history is significant for diabetes, hypertension, renal disease, thyroid disease. Patient was seen and examined. Right lower leg swelling and pain has improved. Redness is less. Vitals are stable. We will continue vancomycin IV. Doppler leg shows negative for DVT. Anticipate to switch to po abx and discharge in AM. - Constitutional Vitals: Temp Pulse Resp BP Pulse Ox 97.9 F 81 16 132/67 100 04/10/17 11:31 04/10/17 11:31 04/10/17 11:31 04/10/17 11:31 04/10/17 11:31 General appearance: Present: A&O X 3, no acute distress, answers questions appropriately - Head Head exam: Present: atraumatic, normocephalic - Eye Eye exam: Present: PERRL, conjuntiva pink, sclera anicteric Pupils: Present: PERRL - Neck Neck exam general surgery: Present: supple, trachea midline. Absent: lymphadenopathy - Respiratory Respiratory exam: Present: CTAB. Absent: accessory muscle use, rales, rhonchi, wheezes - Cardiovascular Cardiovascular exam: Present: RRR, +S1, +S2. Absent: diastolic murmur, gallop, rubs, systolic murmur - GI/Abdominal GI/Abdominal exam: Present: normal bowel sounds, soft, no peritoneal signs. Absent: distended, tenderness - Extremities Exam Extremities exam: Present: warm, radial pulses palpable and symetrical. Absent : calf tenderness, cyanotic, pedal edema Additional comments: Left AKA, right LLE redness on skin. - Neurological Exam Neurological exam: Present: CN II-XII intact, oriented X3, no focal deficits. Absent: pronater drift, facial droop, speech deficit - Skin Skin exam: Present: dry, intact Internal Medicine: Result - Labs CBC & Chem 7: 04/10/17 03:47 04/10/17 03:47 Labs: Short CBC 04/10/17 Range/Units 03:47 WBC 7.2 (4.3-11.1) K/mcL Hgb 7.6 L (12.9-16.9) g/dL Hct 27.3 L (37.5-50.1) % Plt Count 99 L (140-400) K/mcL Neutrophils # 4.4 (1.6-8.9) K/mcL BMP 04/10/17 03:47 Sodium 141 Potassium 4.2 Chloride 104 Carbon Dioxide 26 BUN 24 Creatinine 1.27 H Glucose 209 H Calcium 8.8 Consult Discharge Plan - Plan Referrals: NO,PCP [Primary Care Provider] -
[2017-04-10] MEDS: Vancomycin 1,750 MG in D5% in Water 500 ML IVPB SCH (17:05)
--- NOTE | 2017-04-10 17:19 | Electrocardiograph Report ---
[address] [address] Test Date: 2017-04-07 Pat Name: Keanu Borges Department: 105 Room: 3A22 Gender: M Window Maker: AM : 1945 Requested By: Janusz Carcamo Order Number: [id number] Reading MD: Gulshan Funes Measurements Intervals [place] Rate: 78 P: 27 LA: 138 QRS: -5 QRSD: 100 T: 48 QT: 406 QTc: 439 Interpretive Statements SINUS RHYTHM POSSIBLE LEFT VENTRICULAR HYPERTROPHY Electronically Signed On 04-10-2017 17:17:50 EDT by Gulshan Funes
[2017-04-10] MEDS: *HR* OxyCODONE/APAP 5/325 TABLET PO PRN (20:52)
[2017-04-10] MEDS ORDERED: Insulin DETEMIR 100 UNIT/ML X5UNITS SQ SCH (21:00)
[2017-04-10] MEDS: 0.9 % Sodium Chloride 1,000 ML IVC SCH (23:21)
[2017-04-11] MEDS: *HR* OxyCODONE/APAP 5/325 TABLET PO PRN ×2 (06:12→13:32)
[2017-04-11] MEDS: Insulin LISPRO 300 UNITS/3 ML VIAL SQ SCH ×2 (08:23→11:40)
[2017-04-11] MEDS: Furosemide 40 MG TABLET PO SCH (08:24)
[2017-04-11] MEDS: *HR* Heparin 5,000 UNIT/ML VIAL SQ SCH (08:24)
[2017-04-11] MEDS: amLODIPine 5 MG TABLET PO SCH (08:24)
[2017-04-11] MEDS: Aspirin 81 MG TAB.CHEW PO SCH (08:24)
[2017-04-11] MEDS: Gabapentin 300 MG CAPSULE PO SCH (08:24)
[2017-04-11] MEDS: Famotidine 20 MG TABLET PO SCH (08:25)
[2017-04-11] MEDS: hydrALAZINE 10 MG TABLET PO SCH (08:25)
[2017-04-11] MEDS: Loratadine 10 MG TABLET PO SCH (08:26)
[2017-04-11] MEDS ORDERED: Insulin DETEMIR 100 UNIT/ML X5UNITS SQ SCH (09:00)
[2017-04-11 11:25] VITALS: BP 121/69
[2017-04-11] MEDS ORDERED: Lactobacillus 1 EACH CAP.SPRINK PO SCH (12:30)
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
--- NOTE | 2017-04-11 12:51 | Physician Discharge Referral ---
Home Health/Hosp Referral Info Transfer to: Home Health Provider in Charge Post Discharge: PCP - Diagnosis (1) Cellulitis Status: Acute (2) Diabetes Status: Chronic (3) Anemia Status: Acute (4) Hypothyroidism Status: Chronic (5) CKD (chronic kidney disease), stage III Status: Acute (6) Fall Status: Acute (7) DVT prophylaxis Status: Acute - Respiratory Orders Smoking Cessation: Smoking cessation has been advised. For more information, call the [place] Tobacco Quit Line at 4-152-REMM-NOW. - Services Needed Following services are medically necessary services: Nursing, Home Health Aide, Physical Therapy, Occupational Therapy - Transfer Medications Prescriptions: Clindamycin [Cleocin] 300 mg PO Q6HR #56 capsule Lactobacillus [Culturelle] 2 each PO DAILY #20 cap.sprink Home Medications: Atorvastatin [Lipitor] 40 mg PO HS 08/05/15 [History] DULoxetine [Cymbalta] 60 mg PO DAILY 08/05/15 [History] Docusate [Colace] 200 mg PO BID 08/05/15 [History] Donepezil [Aricept] 10 mg PO HS 08/05/15 [History] Lactulose 20 gm PO BID 08/05/15 [History] Levothyroxine [Synthroid] 175 mcg PO DAILY 08/05/15 [History] Aspirin 81 mg PO DAILY 03/18/16 [History] Metoprolol Tartrate [Lopressor] 50 mg PO BID 03/18/16 [History] Furosemide [Lasix] 40 mg PO DAILY 07/30/16 [History] Mirabegron [Myrbetriq] 50 mg PO DAILY 07/30/16 [History] Fluticasone Propionate Nasal [Flonase] 50 mcg NS DAILY PRN 10/23/16 [History] Lidocaine Patch [Lidoderm 5% patch] 1 each TP DAILY 10/23/16 [History] Loratadine [Allergy Relief] 10 mg PO DAILY 10/23/16 [History] Ranitidine HCl [Zantac] 150 mg PO BID 10/23/16 [History] Tizanidine HCl 4 mg PO BID 10/23/16 [History] Amlodipine Besylate 10 mg PO DAILY 12/04/16 [History] Cyclobenzaprine [Flexeril] 5 mg PO TID PRN 12/04/16 [History] hydrALAZINE [HydrALAZINE] 10 mg PO BID #60 tablet 12/07/16 [Rx] Famotidine [Pepcid] 20 mg PO BID 04/08/17 [History] Gabapentin [Neurontin] 300 mg PO TID 04/08/17 [History] Insulin NPH Human Isophane [Novolin N] 15 unit SQ TIDWM 04/08/17 [History] Insulin Regular, Human [Novolin R] 65 unit SQ BID 04/08/17 [History] Losartan Potassium [Cozaar] 100 mg PO DAILY 04/08/17 [History] Clindamycin [Cleocin] 300 mg PO Q6HR #56 capsule 04/11/17 [Rx] Lactobacillus [Culturelle] 2 each PO DAILY #20 cap.sprink 04/11/17 [Rx] Patient Taking Own Medication 1 each IJ CONT 04/11/17 [History] Allergies/Adverse Reactions: Allergies adhesive tape Allergy (Verified 12/27/16 11:58) Hives pregabalin [From Lyrica] Allergy (Verified 12/27/16 11:58) Swelling of Lip/Tongue/Throat Sulfa (Sulfonamide Antibiotics) Allergy (Verified 12/27/16 11:58) PER PT UNKNOWN REACTION Certification: Further, I certify that my clinical findings support that this patient is homebound (i.e. absences from home require considerable and taxing effort and are for medical reasons or voodoo services or infrequently or short duration when for other reasons) because: Homebound Reason: Patient requires assistance of a person or device to safely leave home Attestation: My signature below is to certify that this patient is under my care and that I, or nurse practitioner, or a physician's field research assistant working with me, has a face-to -face encounter with this patient.
--- NOTE | 2017-04-11 13:05 | Venous Imaging Report ---
LE Venous Duplex Patient Name:Keanu Borges Order Number:[id number] Procedure Date:04/10/2017 Date:6Age:71 yrs Gender:Male Location:[facility] Room #: 3A22 Matrix Worker:Jim Chris RDCS Referring MD:Noble Catalan MD certified medical technician assistant:None Reading MD:Ba Nickerson MD Primary Indications:Swelling Secondary Indications: Risk Factors Yes/No Diabetes Yes Anticoagulants Yes Hx of Chemotherapy Yes Impressions: Right lower extremity: normal superficial and deep exam. Recommendations: After imaging the patient returned to their room. Findings Venous Duplex Results: Right: Venous imaging of the lower extremity reveals full patency and normal vessel compressibility of the right distal iliac, right common femoral, right superficial femoral, right popliteal, right posterior tibial, right peroneal, right great saphenous and right lesser saphenous. Doppler signals in the evaluated veins were normal. Left: Venous imaging of the lower extremity reveals full patency and normal vessel compressibility of the left common femoral. Doppler signals in the evaluated veins were normal. Lower Extremity Venous Duplex Side Vein Compress Spontaneous Flow Augment Diameter (cm) Depth (cm) Right Distal Iliac Normal Yes Phasic Yes Right Common Femoral Normal Yes Phasic Yes Right Superficial Femoral Normal Yes Phasic Yes Right Popliteal Normal Yes Phasic Yes Right Posterior Tibial Normal Yes Phasic Yes Right Peroneal Normal Yes Phasic Yes Right Great Saphenous Normal Yes Phasic Yes Right Lesser Saphenous Normal Yes Phasic Yes Left Common Femoral Normal Yes Phasic Yes Updated by Ba Nickerson MD on 04/11/2017 12:58:26 PM electronically signed on 04/11/2017 12:58:38 PM with status of Final
[2017-04-11] MEDS ORDERED: Aminoglycoside Consult 1 EACH MC ONE (15:03)
== END 2017-04-11 15:04 | disposition home or self-care (01) | DRG 603 ==
LOC: EMEROO 16:32 → 3ANU 16:32
PROVIDERS: ADMIT Internal Medicine; ATTEND Internal Medicine

== ENCOUNTER 2017-04-16 04:55 | Inpatient (IN) ==
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
[2017-04-16 05:35] LABS: Basophils % 0.5 %; Eosinophils # 0.6 K/mcL (0.0-0.6); Eosinophils % 7.9 %; Hematocrit 32.1 % (37.5-50.1); Hemoglobin 8.9 g/dL (12.9-16.9); Immature Granulocytes % 1.2 % (0-4); Lymphocytes # 1.5 K/mcL (0.6-4.6); Mean Corpuscular HGB Conc 27.7 g/dL (31.6-35.5); Mean Corpuscular Hemoglobin 21.8 pg (28.0-33.3); Mean Corpuscular Volume 78.5 fL (83.0-100.0); Mean Platelet Volume 10.4 fL (9.4-12.4); Monocytes # 0.5 K/mcL (0.0-1.3); Monocytes % 7.1 %; Platelet Count 127 K/mcL (140-400); Red Blood Count 4.09 M/mcL (4.19-5.50); Red Cell Distribution Width 19.6 % (11.5-14.5); Segmented Neutrophils % 63.3 %
[2017-04-16 05:36] LABS: Neutrophils # 4.8 K/mcL (1.6-8.9)
[2017-04-16 05:47] LABS: Calcium 8.9 mg/dL (8.6-10.8); Potassium 4.1 mEq/L (3.5-4.5)
[2017-04-16 06:11] LABS: Anisocytosis 1+ (Not Present)
[2017-04-16 06:12] LABS: Platelet Estimate Slight Decrease (Normal)
[2017-04-16 06:13] LABS: Polychromasia 1+ (Not Present)
[2017-04-16] MEDS ORDERED: 0.9 % Sodium Chloride 1,000 ML IVC ONE (06:20)
[2017-04-16 07:00] LABS: ABG HCO3 31.2 mEQ/L (21-27); ABG Oxygen Saturation 94 % (95-98); ABG PCO2 62 mmHg (35-45); ABG PH 7.31 pH Units (7.32-7.45); ABG PO2 78 mmHg (85-104); ABG TCO2 33.1 mEq/L (20-26)
[2017-04-16 07:01] LABS: Blood Gas Liter Flow 2 L/MIN
[2017-04-16] MEDS ORDERED: Vancomycin 1,500 MG in D5% in Water 250 ML IVPB SCH (10:00)
--- NOTE | 2017-04-16 10:08 | Internal Med History&Physical ---
Date of Encounter: 04/16/17 Time of Encounter: 10:05 Assessment and Plan (1) Cellulitis Current visit: No Status: Acute He was discharged 5 days ago on clindamycin for right leg cellulitis. We start Vancomycin and Zosyn Qualifiers: Qualified Code(s): L03.90 - Cellulitis, unspecified (2) DVT (deep venous thrombosis) Current visit: No Status: Acute Qualifiers: Qualified Code(s): I82.409 - Acute embolism and thrombosis of unspecified deep veins of unspecified lower extremity (3) DM (diabetes mellitus), type 2 Current visit: No Status: Chronic Sliding scale insulin every 4 hours for now. Check hemoglobin A-1 C. A once he was 11 6 months ago. 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 Hb stable compared to baseline Qualifiers: Qualified Code(s): D64.9 - Anemia, unspecified (6) Fall Current visit: Yes Status: Acute Patient was found on the ground at home. Reportedly he may have stayed for 2 hours on the ground. CPK only minimally elevated. Gentle hydration. Reportedly had incontinence to urine so an EEG will be performed. He has no prior history of seizures. Other possibilities for the fall include hypoglycemia. Deconditioning related to cellulitis Qualifiers: Qualified Code(s): W19.XXXA - Unspecified fall, initial encounter (7) Respiratory acidosis Current visit: Yes Status: Acute Etiology unclear he never smoked. Maybe related to obesity hypoventilation syndrome versus sleep apnea. This will need to be investigated. Internal Medicine - H&P: HPI Chief complaint: fall History of present illness: Mr. Borges is a 71 year old male multiple medical problems presents emergency room today after he was found on the ground. Patient does not recall circumstances of default. He was found on the ground laying there for 2 hours. He was incontinent urine. He has no prior history of seizures. He was recently discharged from the hospital 5 days ago with cellulitis and was given a course of clindamycin. He still notes redness warmth of the right leg. Denies any sputum production, diarrhea, urinary symptoms. He was alert oriented times 3 during my interview. Past Med Surg Social Fam HX - Past Medical History Medical history: cancer, CVA, diabetes, hypertension, renal disease, thyroid disease, syncope Psychiatric history: anxiety, depression - Past Surgical History Surgical History: appendectomy, orthopedic, other, thyroidectomy, other - Social History Smoking Status: Never smoker Smokeless Tobacco Status: No Alcohol use: none Drug use: none - Family History Mother Living Status: Hx Family Cardiac Disorders: Yes Father Living Status: Hx Family Cardiac Disorders: Yes Internal Medicine - H&P: Meds Atorvastatin [Lipitor] 40 mg PO HS 08/05/15 [History] DULoxetine [Cymbalta] 60 mg PO DAILY 08/05/15 [History] Docusate [Colace] 200 mg PO BID 08/05/15 [History] Donepezil [Aricept] 10 mg PO HS 08/05/15 [History] Lactulose 20 gm PO BID 08/05/15 [History] Levothyroxine [Synthroid] 175 mcg PO DAILY 08/05/15 [History] Aspirin 81 mg PO DAILY 03/18/16 [History] Metoprolol Tartrate [Lopressor] 50 mg PO BID 03/18/16 [History] Furosemide [Lasix] 40 mg PO DAILY 07/30/16 [History] Mirabegron [Myrbetriq] 50 mg PO DAILY 07/30/16 [History] Fluticasone Propionate Nasal [Flonase] 50 mcg NS DAILY PRN 10/23/16 [History] Lidocaine Patch [Lidoderm 5% patch] 1 each TP DAILY 10/23/16 [History] Loratadine [Allergy Relief] 10 mg PO DAILY 10/23/16 [History] Ranitidine HCl [Zantac] 150 mg PO BID 10/23/16 [History] Tizanidine HCl 4 mg PO BID 10/23/16 [History] Amlodipine Besylate 10 mg PO DAILY 12/04/16 [History] Cyclobenzaprine [Flexeril] 5 mg PO TID PRN 12/04/16 [History] hydrALAZINE [HydrALAZINE] 10 mg PO BID #60 tablet 12/07/16 [Rx] Famotidine [Pepcid] 20 mg PO BID 04/08/17 [History] Gabapentin [Neurontin] 300 mg PO TID 04/08/17 [History] Insulin NPH Human Isophane [Novolin N] 65 unit SQ BIDWM 04/08/17 [History] Insulin Regular, Human [Novolin R] 15 unit SQ TIDWM 04/08/17 [History] Losartan Potassium [Cozaar] 100 mg PO DAILY 04/08/17 [History] Clindamycin [Cleocin] 300 mg PO Q6HR #56 capsule 04/11/17 [Rx] Lactobacillus [Culturelle] 2 each PO DAILY #20 cap.sprink 04/11/17 [Rx] Patient Taking Own Medication 1 each IJ CONT 04/11/17 [History] Lisinopril [Zestril] 20 mg PO DAILY 04/16/17 [History] Allergies adhesive tape Allergy (Verified 12/27/16 11:58) Hives pregabalin [From Lyrica] Allergy (Verified 12/27/16 11:58) Swelling of Lip/Tongue/Throat Sulfa (Sulfonamide Antibiotics) Allergy (Verified 12/27/16 11:58) PER PT UNKNOWN REACTION All Systems PM: A 10-system review of systems was performed and is negative for pertinent findings except as documented above in the HPI. Review of systems: 10 point review of systems is negative except for HPI - Constitutional Vitals: Temp Pulse Resp BP Pulse Ox 97.5 F L 59 18 126/75 99 04/16/17 08:59 04/16/17 08:59 04/16/17 08:59 04/16/17 08:59 04/16/17 08:59 Exam: Gen.: patient is alert oriented times 3 not in distress. Cardiac: normal S1 S2 no additional sounds or murmurs chest: fair air entry. no active wheezing. No crackles or bronchial breathing. abdomen: soft nontender nondistended normal bowel sounds neuro: no focal deficit LE: Right leg warmth, redness Internal Med - H&P Results - Labs CBC & Chem 7: 04/16/17 05:23 04/16/17 05:23 - ABG Interpretation ABG results: 04/16/17 06:55 ABG pH 7.31 L ABG pCO2 62 H ABG pO2 78 L ABG HCO3 31.2 H ABG Total CO2 33.1 H ABG O2 Saturation 94 L ABG Base Excess 4.0 H
[2017-04-16] MEDS: Piperacillin/Tazobactam 3.375 GM in D5% in Water (Mini-Bag+) 100 ML IVPB SCH ×2 (10:45→21:33)
[2017-04-16] MEDS: Insulin LISPRO 300 UNITS/3 ML VIAL SQ SCH ×3 (11:40→21:42)
[2017-04-16] MEDS: Vancomycin 1,500 MG in D5% in Water 250 ML IVPB SCH (11:40)
--- NOTE | 2017-04-16 15:03 | EEG/EMG/Oth Biometrics Report ---
EEG Procedure Report EEG Procedure: Routine EEG Procedure Note: This is a report of a 21 channel bipolar and referential montage EEG. The posterior dominant rhythm consists of low vokltage theta frenquencies. This rhythm does not react to eye opening. Hyperventilation is not performed during the recording. Periods of drowsdiness and stage II sleep are identified as referenced by K complexes and sleep spindles. EKG artifact is seen in the cortical leads During much of the recording. Photic stimulation is performed and does not produce a driving response. The EKG rhythm strip reveals normal sinus rhythm at 72 beats per minute. Impressions: This EEG is reflective of a mild generalized encephalopathy. No evidence of epileptiform activity is identified during the recording. Please correlate clinically. The documentation in the history of HPI and plan were at least partially created by [employer] recognition technology by Dr. Prieto. Errors in grammar, wording or other phrases may exist. If errors are found after the documentation signed, they will be addressed individually in the addendum section of this document when appropriate.
--- NOTE | 2017-04-16 16:17 | Electrocardiograph Report ---
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
[2017-04-16] MEDS: *HR* Heparin 5,000 UNIT/ML VIAL SQ SCH (16:49)
[2017-04-17] MEDS: Vancomycin 1,500 MG in D5% in Water 250 ML IVPB SCH (01:50)
[2017-04-17 04:43] LABS: Eosinophils % 7.4 %
[2017-04-17 04:44] LABS: Basophils % 0.6 %; Eosinophils # 0.5 K/mcL (0.0-0.6); Hemoglobin 7.8 g/dL (12.9-16.9); Immature Granulocytes % 0.8 % (0-4); Lymphocytes # 1.3 K/mcL (0.6-4.6); Lymphocytes % 20.8 %; Mean Corpuscular HGB Conc 28.9 g/dL (31.6-35.5); Mean Corpuscular Hemoglobin 22.5 pg (28.0-33.3); Monocytes # 0.5 K/mcL (0.0-1.3); Monocytes % 8.2 %; Red Blood Count 3.46 M/mcL (4.19-5.50); Segmented Neutrophils % 62.2 %
[2017-04-17 04:45] LABS: Hemoglobin A1C 8.1 %
[2017-04-17 04:48] LABS: BUN/Creatinine Ratio 17 (6-26); Blood Urea Nitrogen 24 mg/dL (8-26); C-Reactive Protein 7 mg/L (Less than 5); Calcium 8.7 mg/dL (8.6-10.8); Carbon Dioxide 29 mEq/L (19-29); Chloride 102 mEq/L (98-109); Glucose 253 mg/dL (70-99); Magnesium 1.6 mg/dL (1.6-2.6); Osmolality,Calculated 301 (280-300); Potassium 4.8 mEq/L (3.5-4.5); Sodium 139 mEq/L (136-145); eGFR For African Americans > 60 (> 60); eGFR For Non-African Americans 51 (> 60)
[2017-04-17] MEDS: Piperacillin/Tazobactam 3.375 GM in D5% in Water (Mini-Bag+) 100 ML IVPB SCH (05:00)
[2017-04-17 05:16] LABS: Mean Platelet Volume 11.4 fL (9.4-12.4); Platelet Count 105 K/mcL (140-400)
[2017-04-17 05:17] LABS: Anisocytosis 1+ (Not Present); Microcytosis Present (Not Present); Platelet Estimate Decreased (Normal)
[2017-04-17 05:18] LABS: Polychromasia 1+ (Not Present)
[2017-04-17] MEDS: *HR* Heparin 5,000 UNIT/ML VIAL SQ SCH ×2 (05:39→16:39)
[2017-04-17] MEDS: Aspirin 81 MG TAB.CHEW PO SCH (09:53)
[2017-04-17] MEDS: Famotidine 20 MG TABLET PO SCH (09:53)
--- NOTE | 2017-04-17 10:12 | Internal Med Progress Note ---
<Sanjiv Sears - Last Filed: 04/17/17 17:03> Date of Encounter: 04/17/17 Time of Encounter: 10:06 - Assessment and plan (1) Cellulitis Current Visit: No Status: Acute Assessment and plan: Patient has cellulitis to the distal right lower extremity for roughly 3 weeks. Patient states that it has gotten worse. He denies any significant pain or discomfort in his right lower extremity. This may have contributed to his fall 2 days ago. - No leukocytosis, vitals are stable. Plan: - Continue vancomycin and Cefepim renally dosed. Qualifiers: Qualified Code(s): L03.90 - Cellulitis, unspecified (2) Hypothyroidism Current Visit: No Status: Chronic Assessment and plan: Patient has a history of hypothyroidism Plan: - Continue home dose levothyroxine. Qualifiers: Hypothyroidism type: acquired Qualified Code(s): E03.9 - Hypothyroidism, unspecified (3) DM (diabetes mellitus), type 2 Current Visit: No Status: Chronic Assessment and plan: Patient has known type 2 diabetes with hemoglobin A1c 8.1. Glucose is elevated at 253 this morning. Hyperglycemia in the setting of infection. Plan: -Add Levemir 10 units twice a day - Continue low-dose sliding scale. - Continue ACHS glucose checks. Qualifiers: Diabetes mellitus complication status: with kidney complications Qualified Code(s): E11.21 - Type 2 diabetes mellitus with diabetic nephropathy; Z79.4 - intermediate manager (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 of insulin (4) Chronic kidney disease, stage III (moderate) Current Visit: No Status: Acute Assessment and plan: Stable stage III chronic kidney disease. Likely secondary to type 2 diabetes. GFR 51. Creatinine 1.38. Plan: - Controlled hyperglycemia. - Renally dose antibiotics and avoid nephrotoxic medications. - Monitor renal function daily and adjust medications appropriately. (5) Anemia Current Visit: No Status: Chronic Assessment and plan: Stable chronic anemia microcytic. Review of previous labs demonstrate iron deficiency anemia in the setting of stage III chronic kidney disease. Patient is currently on by mouth iron. Asymptomatic. Plan: - Continue ferrous sulfate. - Monitor hemoglobin daily, replace PRBCs if hemoglobin less than 7.0. Qualifiers: Anemia type: iron deficiency Qualified Code(s): D50.0 - Iron deficiency anemia secondary to blood loss (chronic) (6) DVT prophylaxis Current Visit: No Status: Acute Assessment and plan: Subcutaneous heparin 5000 units every 12 hours - Constitutional Vitals: Temp Pulse Resp BP Pulse Ox 98.3 F 74 16 159/79 93 04/17/17 07:40 04/17/17 07:40 04/17/17 07:40 04/17/17 07:40 04/17/17 07:40 Internal Medicine: Result - Labs CBC & Chem 7: 04/17/17 04:23 04/17/17 04:23 Labs: Short CBC 04/17/17 Range/Units 04:23 WBC 6.4 (4.3-11.1) K/mcL Hgb 7.8 L (12.9-16.9) g/dL Hct 27.0 L (37.5-50.1) % Plt Count 105 L (140-400) K/mcL Neutrophils # 4.0 (1.6-8.9) K/mcL BMP 04/17/17 04:23 Sodium 139 Potassium 4.8 H Chloride 102 Carbon Dioxide 29 BUN 24 Creatinine 1.38 H Glucose 253 H Calcium 8.7 - ABG Interpretation ABG results: ABG ABG pH 7.31 pH Units (7.32-7.45) L 04/16/17 06:55 ABG pCO2 62 mmHg (35-45) H 04/16/17 06:55 ABG pO2 78 mmHg (85-104) L 04/16/17 06:55 ABG O2 Saturation 94 % (95-98) L 04/16/17 06:55 - Impressions Impressions Pulmonary Perfusion Imaging 04/16/17 10:06 IMPRESSION: Low Probability for Pulmonary Embolus. D/ / Vasu Martinez MD / Vasu Martinez MD Interpreting Provider: Vasu Martinez MD Consult Discharge Plan - Plan Referrals: Chandan Fitzgerald MD [Primary Care Provider] - (web request..04/17/2017) <Davy Dial - Last Filed: 04/17/17 17:29> Date of Encounter: 04/17/17 - Constitutional Vitals: Temp Pulse Resp BP Pulse Ox 98.1 F 81 20 154/70 94 04/17/17 15:26 04/17/17 15:26 04/17/17 15:26 04/17/17 15:26 04/17/17 15:26 Internal Medicine: Result - Labs CBC & Chem 7: 04/17/17 04:23 04/17/17 04:23 Labs: Short CBC 04/17/17 Range/Units 04:23 WBC 6.4 (4.3-11.1) K/mcL Hgb 7.8 L (12.9-16.9) g/dL Hct 27.0 L (37.5-50.1) % Plt Count 105 L (140-400) K/mcL Neutrophils # 4.0 (1.6-8.9) K/mcL BMP 04/17/17 04:23 Sodium 139 Potassium 4.8 H Chloride 102 Carbon Dioxide 29 BUN 24 Creatinine 1.38 H Glucose 253 H Calcium 8.7 Urine 04/17/17 Range/Units 13:55 Urine Color Yellow (Yellow) Urine Clarity Clear (Clear) Urine pH 6.0 (5.0-8.0) pH Units Ur Specific [place] 1.014 (1.010-1.025) Urine Protein Negative (Neg-Trace) mg/dL Urine Glucose (UA) Normal (Normal) mg/dL - ABG Interpretation ABG results: ABG ABG pH 7.31 pH Units (7.32-7.45) L 04/16/17 06:55 ABG pCO2 62 mmHg (35-45) H 04/16/17 06:55 ABG pO2 78 mmHg (85-104) L 04/16/17 06:55 ABG O2 Saturation 94 % (95-98) L 04/16/17 06:55 - Attending Attestation I examined this patient and my medical decision-making was reviewed with the ANODE BUILDER/PA/Advanced Practice Nurse/Resident Physician. I agree with the documented findings, disposition and treatment plan as described except to the extent set forth below. Continue antibiotics. DVT was ruled out. D/W patient.
[2017-04-17] MEDS: Insulin LISPRO 300 UNITS/3 ML VIAL SQ SCH ×4 (10:15→22:34)
[2017-04-17] MEDS ORDERED: Fluticasone Propionate Nasal 50 MCG/SPRAY BOTTLE NS PRN (10:27)
[2017-04-17] MEDS: *HR* OxyCODONE/APAP 5/325 TABLET PO PRN ×2 (12:09→22:37)
[2017-04-17 14:00] LABS: Bilirubin,Urine Negative (Negative); Blood,Urine Negative (Negative); Clarity,Urine Clear (Clear); Color,Urine Yellow (Yellow); Glucose,Urine (UA) Normal (Normal); Ketones,Urine Negative (Negative); Leukocyte Esterase,Urine Negative (Negative); Nitrite,Urine Negative (Negative); Protein,Urine Negative (Neg-Trace); Specific Gravity,Urine 1.014 (1.010-1.025); Urobilinogen,Urine Normal (Normal)
[2017-04-17] MEDS: Gabapentin 300 MG CAPSULE PO SCH ×2 (16:38→22:37)
[2017-04-17] MEDS: Cefepime HCl 2,000 MG in D5% in Water (Mini-Bag+) 100 ML IVPB SCH (16:39)
--- NOTE | 2017-04-17 17:37 | Venous Imaging Report ---
LE Venous Duplex Patient Name:Keanu Borges Order Number:[id number] Procedure Date:04/17/2017 Date:6Age:71 yrs Gender:Male Location:[facility] Room #: 2A44 Musician Instrumental:Berta Hayes RDCS Referring MD:Sanjiv Sears DO elder counselor:Chandan Fitzgerald MD Reading MD:Levy Rios MD Primary Indications:Possible DVT Secondary Indications: Impressions: Normal right lower extremity deep and superficial venous exam. Recommendations: After imaging the patient returned to their room. Findings Venous Duplex Results: Right: Venous imaging of the lower extremity reveals full patency and normal vessel compressibility of the right distal iliac, right common femoral, right superficial femoral, right popliteal, right posterior tibial, right peroneal, right great saphenous and right lesser saphenous. Doppler signals in the evaluated veins were normal. Lower Extremity Venous Duplex Side Vein Compress Spontaneous Flow Augment Diameter (cm) Depth (cm) Right Distal Iliac Normal Yes Phasic Yes Right Common Femoral Normal Yes Phasic Yes Right Superficial Femoral Normal Yes Phasic Yes Right Popliteal Normal Yes Phasic Yes Right Posterior Tibial Normal Yes Phasic Yes Right Peroneal Normal Yes Phasic Yes Right Great Saphenous Normal Yes Phasic Yes Right Lesser Saphenous Normal Yes Phasic Yes Updated by Levy Rios MD on 04/17/2017 5:30:05 PM electronically signed on 04/17/2017 5:30:17 PM with status of Final
[2017-04-17] MEDS: Insulin DETEMIR 100 UNIT/ML X5UNITS SQ SCH (22:36)
[2017-04-18 01:57] LABS: Alanine Aminotransferase 24 Units/L (0-55); Albumin 3.5 g/dL (3.5-5.0); Albumin/Globulin Ratio 0.9 (1.1-2.2); Alkaline Phosphatase 95 Units/L (38-126); Aspartate Amino Transferase 29 Units/L (5-34); BUN/Creatinine Ratio 15 (6-26); Bilirubin,Total 0.4 mg/dL (0.2-1.2); Blood Urea Nitrogen 19 mg/dL (8-26); Calcium 9.6 mg/dL (8.6-10.8); Carbon Dioxide 29 mEq/L (19-29); Chloride 100 mEq/L (98-109); Eosinophils % 7.5 %; Globulin 3.7 g/dL (2.4-3.5); Glucose 189 mg/dL (70-99); Osmolality,Calculated 293 (280-300); Potassium 4.4 mEq/L (3.5-4.5); Sodium 138 mEq/L (136-145); Total Protein 7.2 g/dL (6.0-8.3); eGFR For African Americans > 60 (> 60); eGFR For Non-African Americans 58 (> 60)
[2017-04-18 01:59] LABS: Basophils % 0.5 %; Eosinophils # 0.5 K/mcL (0.0-0.6); Hematocrit 28.5 % (37.5-50.1); Hemoglobin 8.1 g/dL (12.9-16.9); Immature Granulocytes % 0.5 % (0-4); Lymphocytes # 1.7 K/mcL (0.6-4.6); Lymphocytes % 26.1 %; Mean Corpuscular HGB Conc 28.4 g/dL (31.6-35.5); Mean Corpuscular Hemoglobin 21.7 pg (28.0-33.3); Mean Corpuscular Volume 76.2 fL (83.0-100.0); Mean Platelet Volume 11.3 fL (9.4-12.4); Monocytes # 0.5 K/mcL (0.0-1.3); Monocytes % 8.5 %; Neutrophils # 3.6 K/mcL (1.6-8.9); Platelet Count 112 K/mcL (140-400); Red Blood Count 3.74 M/mcL (4.19-5.50); Red Cell Distribution Width 18.7 % (11.5-14.5); Segmented Neutrophils % 56.9 %
[2017-04-18 02:22] LABS: Microcytosis Present (Not Present)
[2017-04-18 02:23] LABS: Hypochromasia Present (Not Present); Platelet Estimate Slight Decrease (Normal)
[2017-04-18] MEDS: *HR* OxyCODONE/APAP 5/325 TABLET PO PRN ×2 (04:21→12:15)
[2017-04-18] MEDS: *HR* Heparin 5,000 UNIT/ML VIAL SQ SCH ×2 (05:49→17:09)
[2017-04-18] MEDS: Vancomycin 1,750 MG in D5% in Water 500 ML IVPB SCH (06:15)
--- NOTE | 2017-04-18 07:19 | Internal Med Progress Note ---
<Sanjiv Sears - Last Filed: 04/18/17 09:10> Date of Encounter: 04/18/17 Time of Encounter: 07:19 - Assessment and plan (1) Cellulitis Current Visit: No Status: Acute Assessment and plan: Patient has cellulitis to the distal right lower extremity for roughly 3 weeks. Patient states that it has gotten worse. He denies any significant pain or discomfort in his right lower extremity. This may have contributed to his fall 2 days ago. Plan: - Continue vancomycin and Cefepim renally dosed. - Plan to de-escalate to Bactrim at the time of discharge. Possibly tomorrow. (2) Hypothyroidism Current Visit: No Status: Chronic Assessment and plan: Patient has a history of hypothyroidism Plan: - Continue home dose levothyroxine. Qualifiers: Hypothyroidism type: acquired Qualified Code(s): E03.9 - Hypothyroidism, unspecified (3) DM (diabetes mellitus), type 2 Current Visit: No Status: Chronic Assessment and plan: Patient has known type 2 diabetes with hemoglobin A1c 8.1. Glucose is elevated at 253 this morning. Hyperglycemia in the setting of infection. Plan: - Continue Levemir 10 units twice a day - Start medium dose sliding scale insulin - Continue ACHS glucose checks. Qualifiers: Diabetes mellitus complication status: with kidney complications (4) Chronic kidney disease, stage III (moderate) Current Visit: No Status: Acute Assessment and plan: Stable stage III chronic kidney disease. Likely secondary to type 2 diabetes. Creatinine improved to 1.23, GFR 58 Plan: - Controlled hyperglycemia. - Renally dose antibiotics and avoid nephrotoxic medications. - Monitor renal function daily and adjust medications appropriately. (5) Anemia Current Visit: No Status: Chronic Assessment and plan: Stable chronic anemia microcytic. Review of previous labs demonstrate iron deficiency anemia in the setting of stage III chronic kidney disease. Patient is currently on by mouth iron. Asymptomatic. Plan: - Continue ferrous sulfate. - Monitor hemoglobin daily, replace PRBCs if hemoglobin less than 7.0. - Patient may benefit from outpatient colonoscopy for further evaluation. Qualifiers: Anemia type: iron deficiency (6) Hypertension Current Visit: No Status: Chronic Assessment and plan: Patient with known hypertension with current blood pressure 173/82. Plan: - Restart home antihypertensives including amlodipine, hydralazine, lisinopril. - Hold patient's ARB as he is already on lisinopril and improving THOMAS Qualifiers: Hypertension type: unspecified secondary hypertension Qualified Code(s): I15.9 - Secondary hypertension, unspecified; I15 - Secondary hypertension (7) DVT prophylaxis Current Visit: No Status: Acute Assessment and plan: Subcutaneous heparin 5000 units every 12 hours - Subjective Interval history: Mr. Borges 71-year-old male is seen and evaluated patient bedside this morning. He is alert, awake and in no acute distress. He feels that his right lower extremity erythema and tenderness is improved. He has some tightness in the calf but otherwise is able to flex and extend his foot without pain or discomfort. He denies any numbness or tingling in that right lower extremity. Denies any fevers, chills, sweating, shortness of breath, chest pain, palpitations, coughing or productive sputum, abdominal pains, nausea vomiting diarrhea or constipation. He wishes to continue with IV antibiotics at this time to prevent reoccurrence. - Constitutional Vitals: Temp Pulse Resp BP Pulse Ox 98.2 F 75 17 169/88 94 04/18/17 03:51 04/18/17 03:51 04/18/17 03:51 04/18/17 03:51 04/18/17 03:51 Exam: Gen. alert, awake, oriented 3, no acute distress. HEENT: Normocephalic, atraumatic, pupils equal reactive to light, oral mucosa moist, trachea midline, no palpable lymphadenopathy Cardiac: Regular rate and rhythm positive S1-S2 no murmurs or gallops appreciated Respiratory: Clear to auscultation all lung caal. Chest: Symmetric bilateral correlating with respiratory effort. Abdomen: Obese, soft, nontender to palpation, positive bowel sounds Extremities: Right lower extremity has improving erythema with blisters around the distal right lower extremity circumferential. Patient is able to flex, extend his right ankle and knee with only tightness in his calf. Dorsal pedal and posterior tibial pulses 2+ Internal Medicine: Result - Labs CBC & Chem 7: 04/18/17 00:46 04/18/17 00:46 Labs: Short CBC 04/18/17 Range/Units 00:46 WBC 6.4 (4.3-11.1) K/mcL Hgb 8.1 L (12.9-16.9) g/dL Hct 28.5 L (37.5-50.1) % Plt Count 112 L (140-400) K/mcL Neutrophils # 3.6 (1.6-8.9) K/mcL BMP 04/18/17 00:46 Sodium 138 Potassium 4.4 Chloride 100 Carbon Dioxide 29 BUN 19 Creatinine 1.23 Glucose 189 H Calcium 9.6 Liver Function 04/18/17 Range/Units 00:46 Total Bilirubin 0.4 (0.2-1.2) mg/dL AST 29 (5-34) Units/L ALT 24 (0-55) Units/L Alkaline Phosphatase 95 (38-126) Units/L Albumin 3.5 (3.5-5.0) g/dL Urine 04/17/17 Range/Units 13:55 Urine Color Yellow (Yellow) Urine Clarity Clear (Clear) Urine pH 6.0 (5.0-8.0) pH Units Ur Specific [place] 1.014 (1.010-1.025) Urine Protein Negative (Neg-Trace) mg/dL Urine Glucose (UA) Normal (Normal) mg/dL - ABG Interpretation ABG results: ABG ABG pH 7.31 pH Units (7.32-7.45) L 04/16/17 06:55 ABG pCO2 62 mmHg (35-45) H 04/16/17 06:55 ABG pO2 78 mmHg (85-104) L 04/16/17 06:55 ABG O2 Saturation 94 % (95-98) L 04/16/17 06:55 Consult Discharge Plan - Plan Referrals: Chandan Fitzgerald MD [Primary Care Provider] - (web request..04/17/2017) <Davy Dial - Last Filed: 04/18/17 16:48> Date of Encounter: 04/18/17 - Constitutional Vitals: Temp Pulse Resp BP Pulse Ox 98.5 F 97 18 157/79 92 04/18/17 16:12 04/18/17 16:12 04/18/17 16:12 04/18/17 16:12 04/18/17 16:12 Internal Medicine: Result - Labs CBC & Chem 7: 04/18/17 00:46 04/18/17 00:46 Labs: Short CBC 04/18/17 Range/Units 00:46 WBC 6.4 (4.3-11.1) K/mcL Hgb 8.1 L (12.9-16.9) g/dL Hct 28.5 L (37.5-50.1) % Plt Count 112 L (140-400) K/mcL Neutrophils # 3.6 (1.6-8.9) K/mcL BMP 04/18/17 00:46 Sodium 138 Potassium 4.4 Chloride 100 Carbon Dioxide 29 BUN 19 Creatinine 1.23 Glucose 189 H Calcium 9.6 Liver Function 04/18/17 Range/Units 00:46 Total Bilirubin 0.4 (0.2-1.2) mg/dL AST 29 (5-34) Units/L ALT 24 (0-55) Units/L Alkaline Phosphatase 95 (38-126) Units/L Albumin 3.5 (3.5-5.0) g/dL - ABG Interpretation ABG results: ABG ABG pH 7.31 pH Units (7.32-7.45) L 04/16/17 06:55 ABG pCO2 62 mmHg (35-45) H 04/16/17 06:55 ABG pO2 78 mmHg (85-104) L 04/16/17 06:55 ABG O2 Saturation 94 % (95-98) L 04/16/17 06:55 - Attending Attestation I examined this patient and my medical decision-making was reviewed with the TARIFF COMPILING CLERK/PA/Advanced Practice Nurse/Resident Physician. I agree with the documented findings, disposition and treatment plan as described except to the extent set forth below. Continue iv antibiotics, possible discharge tomorrow if stable. monitor vanc levels.
[2017-04-18] MEDS: Cefepime HCl 2,000 MG in D5% in Water (Mini-Bag+) 100 ML IVPB SCH ×2 (07:47→17:09)
[2017-04-18] MEDS: Aspirin 81 MG TAB.CHEW PO SCH (08:09)
[2017-04-18] MEDS: Famotidine 20 MG TABLET PO SCH (08:10)
[2017-04-18] MEDS: Gabapentin 300 MG CAPSULE PO SCH ×3 (08:10→22:12)
[2017-04-18] MEDS: Insulin DETEMIR 100 UNIT/ML X5UNITS SQ SCH ×2 (08:10→22:12)
[2017-04-18] MEDS: Insulin LISPRO 300 UNITS/3 ML VIAL SQ SCH ×4 (08:10→22:12)
[2017-04-18] MEDS: hydrALAZINE 10 MG TABLET PO SCH ×2 (09:41→22:12)
[2017-04-18] MEDS: amLODIPine 5 MG TABLET PO SCH (09:41)
[2017-04-18] MEDS ORDERED: Neosporin OINT 15 GM TUBE TP PRN (23:16)
[2017-04-19] MEDS: Vancomycin 1,750 MG in D5% in Water 500 ML IVPB SCH (02:05)
[2017-04-19] MEDS: *HR* OxyCODONE/APAP 5/325 TABLET PO PRN (04:33)
[2017-04-19] MEDS: Cefepime HCl 2,000 MG in D5% in Water (Mini-Bag+) 100 ML IVPB SCH (05:43)
[2017-04-19] MEDS: amLODIPine 5 MG TABLET PO SCH (08:21)
[2017-04-19] MEDS: Aspirin 81 MG TAB.CHEW PO SCH (08:22)
[2017-04-19] MEDS: hydrALAZINE 10 MG TABLET PO SCH (08:22)
[2017-04-19] MEDS: Famotidine 20 MG TABLET PO SCH (08:22)
[2017-04-19] MEDS: Insulin LISPRO 300 UNITS/3 ML VIAL SQ SCH ×2 (08:24→12:05)
[2017-04-19] MEDS: Insulin DETEMIR 100 UNIT/ML X5UNITS SQ SCH (08:27)
[2017-04-19] MEDS: Gabapentin 300 MG CAPSULE PO SCH (08:30)
[2017-04-19] MEDS: *HR* Heparin 5,000 UNIT/ML VIAL SQ SCH (08:31)
[2017-04-19] MEDS ORDERED: Lisinopril 20 MG TABLET PO SCH (09:00)
[2017-04-19] MEDS ORDERED: Insulin Regular, Human 100 UNIT/ML SQ ONE (10:08)
[2017-04-19 11:12] VITALS: BP 126/71
--- NOTE | 2017-04-19 13:23 | Discharge Summary ---
<Sanjiv Sears - Last Filed: 04/19/17 13:30> Date of Encounter: 04/19/17 Time of Encounter: 08:45 - Discharge Diagnosis (1) Cellulitis Priority: Primary Status: Acute Qualifiers: Qualified Code(s): L03.90 - Cellulitis, unspecified (2) Hypothyroidism Priority: Secondary Status: Chronic Qualifiers: Hypothyroidism type: acquired Qualified Code(s): E03.9 - Hypothyroidism, unspecified (3) DM (diabetes mellitus), type 2 Priority: Secondary Status: Chronic Qualifiers: Diabetes mellitus complication status: with kidney complications Qualified Code(s): E11.21 - Type 2 diabetes mellitus with diabetic nephropathy; Z79.4 - longterm (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 of insulin (4) Chronic kidney disease, stage III (moderate) Priority: Primary Status: Acute (5) Anemia Priority: Secondary Status: Chronic Qualifiers: Anemia type: iron deficiency Qualified Code(s): D50.0 - Iron deficiency anemia secondary to blood loss (chronic) (6) Hypertension Priority: Secondary Status: Chronic Qualifiers: Hypertension type: unspecified secondary hypertension Qualified Code(s): I15.9 - Secondary hypertension, unspecified; I15 - Secondary hypertension (7) DVT prophylaxis Priority: Secondary Status: Acute - Discharge Medications Prescriptions: Ferrous Sulfate 325 mg PO BIDWM #30 tablet Sulfamethoxazole/Trimeth DS [Bactrim DS] 1 each PO BID #20 tablet Home Medications: Atorvastatin [Lipitor] 40 mg PO HS 08/05/15 [History] DULoxetine [Cymbalta] 60 mg PO DAILY 08/05/15 [History] Docusate [Colace] 200 mg PO BID 08/05/15 [History] Donepezil [Aricept] 10 mg PO HS 08/05/15 [History] Lactulose 20 gm PO BID 08/05/15 [History] Levothyroxine [Synthroid] 175 mcg PO DAILY 08/05/15 [History] Aspirin 81 mg PO DAILY 03/18/16 [History] Metoprolol Tartrate [Lopressor] 50 mg PO BID 03/18/16 [History] Furosemide [Lasix] 40 mg PO DAILY 07/30/16 [History] Mirabegron [Myrbetriq] 50 mg PO DAILY 07/30/16 [History] Fluticasone Propionate Nasal [Flonase] 50 mcg NS DAILY PRN 12/12/16 [History] Lidocaine Patch [Lidoderm 5% patch] 1 each TP DAILY 10/23/16 [History] Loratadine [Allergy Relief] 10 mg PO DAILY 10/23/16 [History] Ranitidine HCl [Zantac] 150 mg PO BID 10/23/16 [History] Tizanidine HCl 4 mg PO BID 10/23/16 [History] Amlodipine Besylate 10 mg PO DAILY 12/04/16 [History] Cyclobenzaprine [Flexeril] 5 mg PO TID PRN 12/04/16 [History] hydrALAZINE [HydrALAZINE] 10 mg PO BID #60 tablet 12/07/16 [Rx] Famotidine [Pepcid] 20 mg PO BID 04/08/17 [History] Gabapentin [Neurontin] 300 mg PO TID 04/08/17 [History] Insulin NPH Human Isophane [Novolin N] 65 unit SQ BIDWM 04/08/17 [History] Insulin Regular, Human [Novolin R] 15 unit SQ TIDWM 04/08/17 [History] Losartan Potassium [Cozaar] 100 mg PO DAILY 04/08/17 [History] Lactobacillus [Culturelle] 2 each PO DAILY #20 cap.sprink 04/11/17 [Rx] Patient Taking Own Medication 1 each IJ CONT 04/11/17 [History] Lisinopril [Zestril] 20 mg PO DAILY 04/16/17 [History] Ferrous Sulfate 325 mg PO BIDWM #30 tablet 04/19/17 [Rx] Sulfamethoxazole/Trimeth DS [Bactrim DS] 1 each PO BID #20 tablet 04/19/17 [Rx] Allergies/Adverse Reactions: Allergies adhesive tape Allergy (Verified 12/27/16 11:58) Hives pregabalin [From Lyrica] Allergy (Verified 12/27/16 11:58) Swelling of Lip/Tongue/Throat Sulfa (Sulfonamide Antibiotics) Allergy (Verified 12/27/16 11:58) PER PT UNKNOWN REACTION Procedures/tests Complete & Pending: Procedures Performed prior 72 hours Category Date Time Status Venous Doppler [EV venous imaging LE RT] Routine Y 04/17/17 11:16 Completed Date of admission: 04/16/17 08:48 Primary care physician: Chandan Fitzgerald MD Consults: 04/16/17 09:48 Consult to Occupational Therapy [CONS] Routine Comment: Evaluate, develop and implement POC Reason for Consult: weakness Consult to Physical Therapy [CONS] Routine Comment: Evaluate, develop and implement POC Reason for Consult: weakness 04/16/17 10:04 Consult to Speech Therapy [CONS] Routine Comment: Evaluate, develop and implement POC Reason for Consult: please check swallow before feeding. Just bedside swallow eval by nurse Call Completed: No 04/16/17 11:52 Consult to Interpret Exam [CONS] Routine Consulting Provider: Blu Prieto Consult to Interpret Exam: Interpret EEG Discharging clinician: Sanjiv Sears Anticipated date of discharge: 04/19/17 - Patient Status Disposition: Home, Self-Care Condition: Good Functional capacity at discharge: wheelchair bound Overall status at discharge: patient is progressing back to baseline - Discharge Instructions Instructions: Cellulitis (DC), Diabetes Mellitus Type 2 in Adults (DC) Follow Up With: Chandan Fitzgerald MD [Primary Care Provider] - (web request..04/17/2017) Additional Instructions: I recommend completing antibiotics follow up with her primary care provider and had your blood drawn in 4-5 days. Follow-up primary care provider next 3-5 days. - Diet and Activity Activity: increase activity as tolerated Diet: diabetic diet, low salt diet Interval History: Mr. Borges is a 71 year old male multiple medical problems including left lower extremity amputation, type 2 diabetes, hypertension, anemia chronic microcytic, status post fall and was admitted for right lower extremity cellulitis. Upon admission to the general medical floor he was started on IV vancomycin and Zosyn. His restart on home medications for treatment of chronic disease. He was started on ferrous sulfate for microcytic anemia. He was started on IV fluids. His Zosyn was discontinued and he was started on cefepime with his acute on chronic kidney disease which continued to improve throughout his inpatient stay. He continued on IV antibiotics out his inpatient stay with improvement in his right lower extremity cellulitis. He was afebrile, without tachycardia, blood pressures were stable on home medications. He had no complications throughout his inpatient stay. On 2016 using evaluated and deemed stable for discharge home with continued antibiotic coverage with Bactrim DS for a total of 10 days. An order for an outpatient BMP to evaluate renal function and potassium levels while on Bactrim and antihypertensive medications in the setting of chronic kidney disease. He will follow-up with his primary care provider for follow-up on his lower extremities cellulitis or recent reevaluation. Hospital course: Mr. Borges is a 71 year old male - Time Spent with Patient Total time spent providing and/or coordinating discharge services: - Constitutional Vitals: Temp Pulse Resp BP Pulse Ox 98.2 F 62 16 126/71 92 04/19/17 11:09 04/19/17 11:04/19/17 11:09 04/19/17 11:04/19/17 11:09 General appearance: Present: cooperative, A&O X 3, pleasant - Head Head exam: Present: atraumatic, normocephalic - Eye Eye exam: Present: PERRL, conjuntiva pink, sclera anicteric Pupils: Present: PERRL - Neck Neck exam general surgery: Present: supple, trachea midline. Absent: lymphadenopathy - Respiratory Respiratory exam: Present: CTAB. Absent: accessory muscle use, rales, rhonchi, wheezes - Cardiovascular Cardiovascular exam: Present: RRR, +S1, +S2. Absent: diastolic murmur, gallop, rubs, systolic murmur - GI/Abdominal GI/Abdominal exam: Present: normal bowel sounds, soft, no peritoneal signs. Absent: distended, tenderness - Extremities Exam Additional comments: Right lower extremity cellulitis improving, no edema, warmth and bullae are healing. Patient is able to move his right ankle and flexion-extension without restriction. - Neurological Exam Neurological exam: Present: alert, oriented X3, no focal deficits. Absent: pronater drift, facial droop, speech deficit - Psychiatric Psychiatric exam: Present: normal affect, normal mood <Davy Dial - Last Filed: 04/19/17 15:42> Date of Encounter: 04/19/17 Procedures/tests Complete & Pending: Procedures Performed prior 72 hours Category Date Time Status Venous Doppler [EV venous imaging LE RT] Routine Y 04/17/17 11:16 Completed Date of admission: 04/16/17 08:48 Primary care physician: Chandan Fitzgerald MD Consults: 04/16/17 09:48 Consult to Occupational Therapy [CONS] Routine Comment: Evaluate, develop and implement POC Reason for Consult: weakness Consult to Physical Therapy [CONS] Routine Comment: Evaluate, develop and implement POC Reason for Consult: weakness 04/16/17 10:04 Consult to Speech Therapy [CONS] Routine Comment: Evaluate, develop and implement POC Reason for Consult: please check swallow before feeding. Just bedside swallow eval by nurse Call Completed: No 04/16/17 11:52 Consult to Interpret Exam [CONS] Routine Consulting Provider: Blu Prieto Consult to Interpret Exam: Interpret EEG Hospital course: Mr. Borges is a 71 year old male - Time Spent with Patient Total time spent providing and/or coordinating discharge services: - Constitutional Vitals: Temp Pulse Resp BP Pulse Ox 98.2 F 62 16 126/71 92 04/19/17 11:09 04/19/17 11:09 04/19/17 11:09 04/19/17 11:09 04/19/17 11:09 - Attending Attestation I examined this patient and my medical decision-making was reviewed with the SUPER[employer]ENDENT [employer]/PA/Advanced Practice Nurse/Resident Physician. I agree with the documented findings, disposition and treatment plan as described except to the extent set forth below. Agree with Elmo Oliveira with bactrim for cellulitis. Follow up with pcp.
[2017-04-19] MEDS ORDERED: Aminoglycoside Consult 1 EACH MC ONE (14:44)
--- NOTE | 2017-04-19 15:05 | Physician Discharge Referral ---
Home Health/Hosp Referral Info Transfer to: Home Health Provider in Charge Post Discharge: PCP - Diagnosis (1) Cellulitis Priority: Primary Status: Acute (2) Hypothyroidism Priority: Primary Status: Chronic (3) DM (diabetes mellitus), type 2 Priority: Primary Status: Chronic (4) Chronic kidney disease, stage III (moderate) Priority: Primary Status: Acute (5) Anemia Priority: Primary Status: Chronic (6) Hypertension Priority: Primary Status: Chronic (7) DVT prophylaxis Priority: Primary Status: Acute - Respiratory Orders Smoking Cessation: Smoking cessation has been advised. For more information, call the [place] Tobacco Quit Line at 3-485-JGJK-NOW. - Diet/Nutrition Diet/Nutrition Orders: No Added Salt (PIPER) - Activity Activity Orders: Chair - Services Needed Following services are medically necessary services: Home Health Aide, Physical Therapy - Transfer Medications Prescriptions: Ferrous Sulfate 325 mg PO BIDWM #30 tablet Sulfamethoxazole/Trimeth DS [Bactrim DS] 1 each PO BID #20 tablet Home Medications: Atorvastatin [Lipitor] 40 mg PO HS 08/05/15 [History] DULoxetine [Cymbalta] 60 mg PO DAILY 08/05/15 [History] Docusate [Colace] 200 mg PO BID 08/05/15 [History] Donepezil [Aricept] 10 mg PO HS 08/05/15 [History] Lactulose 20 gm PO BID 08/05/15 [History] Levothyroxine [Synthroid] 175 mcg PO DAILY 08/05/15 [History] Aspirin 81 mg PO DAILY 03/18/16 [History] Metoprolol Tartrate [Lopressor] 50 mg PO BID 03/18/16 [History] Furosemide [Lasix] 40 mg PO DAILY 07/30/16 [History] Mirabegron [Myrbetriq] 50 mg PO DAILY 07/30/16 [History] Fluticasone Propionate Nasal [Flonase] 50 mcg NS DAILY PRN 10/23/16 [History] Lidocaine Patch [Lidoderm 5% patch] 1 each TP DAILY 10/23/16 [History] Loratadine [Allergy Relief] 10 mg PO DAILY 10/23/16 [History] Ranitidine HCl [Zantac] 150 mg PO BID 10/23/16 [History] Tizanidine HCl 4 mg PO BID 10/23/16 [History] Amlodipine Besylate 10 mg PO DAILY 12/04/16 [History] Cyclobenzaprine [Flexeril] 5 mg PO TID PRN 12/04/16 [History] hydrALAZINE [HydrALAZINE] 10 mg PO BID #60 tablet 12/07/16 [Rx] Famotidine [Pepcid] 20 mg PO BID 04/08/17 [History] Gabapentin [Neurontin] 300 mg PO TID 04/08/17 [History] Insulin NPH Human Isophane [Novolin N] 65 unit SQ BIDWM 04/08/17 [History] Insulin Regular, Human [Novolin R] 15 unit SQ TIDWM 04/08/17 [History] Losartan Potassium [Cozaar] 100 mg PO DAILY 04/08/17 [History] Lactobacillus [Culturelle] 2 each PO DAILY #20 cap.sprink 04/11/17 [Rx] Patient Taking Own Medication 1 each IJ CONT 04/11/17 [History] Lisinopril [Zestril] 20 mg PO DAILY 04/16/17 [History] Ferrous Sulfate 325 mg PO BIDWM #30 tablet 04/19/17 [Rx] Sulfamethoxazole/Trimeth DS [Bactrim DS] 1 each PO BID #20 tablet 04/19/17 [Rx] Allergies/Adverse Reactions: Allergies adhesive tape Allergy (Verified 12/27/16 11:58) Hives pregabalin [From Lyrica] Allergy (Verified 12/27/16 11:58) Swelling of Lip/Tongue/Throat Sulfa (Sulfonamide Antibiotics) Allergy (Verified 12/27/16 11:58) PER PT UNKNOWN REACTION Certification: Further, I certify that my clinical findings support that this patient is homebound (i.e. absences from home require considerable and taxing effort and are for medical reasons or hoahaoism services or infrequently or short duration when for other reasons) because: Homebound Reason: Patient requires assistance of a person or device to safely leave home, Leaving home requires considerable and taxing effort due to condition Attestation: My signature below is to certify that this patient is under my care and that I, or nurse practitioner, or a physician's assistant professor of sociology working with me, has a face-to -face encounter with this patient.
== END 2017-04-19 14:45 | disposition home health service (06) | DRG 603 ==
LOC: 2ANU 04:55 → EMEROO 04:55 → 2ANU 08:25 → SUATTDRO 08:48
PROVIDERS: ADMIT Internal Medicine; ATTEND Internal Medicine

== ENCOUNTER 2017-05-05 03:31 | Inpatient (IN) ==
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
[2017-05-05 05:10] LABS: Basophils # 0.1 K/mcL (0.0-0.2); Basophils % 0.5 %; Eosinophils # 0.4 K/mcL (0.0-0.6); Eosinophils % 3.3 %; Hematocrit 28.9 % (37.5-50.1); Hemoglobin 8.1 g/dL (12.9-16.9); Immature Granulocytes % 0.5 % (0-4); Lymphocytes # 1.6 K/mcL (0.6-4.6); Lymphocytes % 14.8 %; Mean Corpuscular Hemoglobin 21.7 pg (28.0-33.3); Mean Corpuscular Volume 77.3 fL (83.0-100.0); Monocytes # 0.8 K/mcL (0.0-1.3); Neutrophils # 8.1 K/mcL (1.6-8.9); Platelet Count 114 K/mcL (140-400); Red Blood Count 3.74 M/mcL (4.19-5.50); Red Cell Distribution Width 18.3 % (11.5-14.5); Segmented Neutrophils % 73.9 %
[2017-05-05 05:27] LABS: Albumin 3.6 g/dL (3.5-5.0); Bilirubin,Total 0.6 mg/dL (0.2-1.2); Calcium 8.6 mg/dL (8.6-10.8); Globulin 3.6 g/dL (2.4-3.5); Total Protein 7.2 g/dL (6.0-8.3)
[2017-05-05 05:36] LABS: Anisocytosis 1+ (Not Present); Hypochromasia Present (Not Present); Platelet Estimate Normal (Normal); Poikilocytosis 1+ (Not Present); Polychromasia 1+ (Not Present)
[2017-05-05] MEDS: 0.9 % Sodium Chloride 1,000 ML IVC SCH ×3 (05:46→20:41)
[2017-05-05] MEDS ORDERED: Levofloxacin 750 MG/150 ML 750 MG/150 ML BAG IVPB ONE (06:01)
[2017-05-05] MEDS ORDERED: Naloxone 0.4 MG/ML INJ IVP PRN (07:37)
--- NOTE | 2017-05-05 09:38 | Internal Med History&Physical ---
Date of Encounter: 05/05/17 Time of Encounter: 09:15 Assessment and Plan (1) Pre-syncope Current visit: Yes Status: Acute Patient presenting with a fall associated with some dizziness and presyncope. Likely from orthostasis/dehydration. Renal function is worse than before likely due to use of Bactrim. We will rehydrate. Check orthostatic blood pressure. Physical therapy evaluation. Telemetry monitoring. We will get 2-D echocardiogram and Dopplers. (2) THOMAS (acute kidney injury) Current visit: Yes Status: Acute Renal function worse than baseline. Likely due to Bactrim use. We will gently hydrate. Follow renal function closely. (3) Anemia Current visit: Yes Status: Chronic Hemoglobin is at baseline. We will monitor blood counts closely. Qualifiers: Anemia type: iron deficiency Qualified Code(s): D50.0 - Iron deficiency anemia secondary to blood loss (chronic) (4) Chronic kidney disease, stage III (moderate) Current visit: Yes Status: Chronic Acute worsening of chronic kidney disease stage III. Monitor renal function and input and output (5) DM (diabetes mellitus), type 2 Current visit: Yes Status: Chronic Monitor blood sugars. Sliding scale insulin. Diabetic diet. Qualifiers: Diabetes mellitus complication status: with kidney complications Diabetes mellitus complication detail: with chronic kidney disease Diabetes mellitus chcf insulin use: with intermodal customer service use Chronic kidney disease stage: stage 3 (moderate) Qualified Code(s): E11.22 - Type 2 diabetes mellitus with diabetic chronic kidney disease; N18.3 - Chronic kidney disease, stage 3 ( moderate); Z79.4 - penitentiary (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 of insulin (6) Pneumonia Current visit: Yes Status: Suspected Chest x-ray shows left basilar atelectasis/infiltrate. We will provide incentive spirometry and repeat chest x-ray in a.m. Patient received IV Levaquin in the ER. Follow blood cultures. Qualifiers: Pneumonia type: due to Pneumococcus Laterality: left Lung location: lower lobe of lung Qualified Code(s): J13 - Pneumonia due to Streptococcus pneumoniae Internal Medicine - H&P: HPI Chief complaint: Fall without loss of consciousness Admitted From: Emergency Dept Plans for Post Hospital Care: Home History of present illness: Mr. Borges is a 71 year old male patient with a history of diabetes, hypertension, chronic kidney disease, CVA presented to the ER after an episode of fall while he was walking that came on without any prodromal symptoms. Patient did not pass out but felt like he was going to pass out. He says he had one similar episode in the past he was admitted here earlier this month for cellulitis involving his right lower extremity and was treated with IV antibiotics. He was discharged home on Bactrim. He has completed antibiotic course. He denies any fever chills or night sweats. Denies any nausea or vomiting. No hematuria or dysuria. He has not noticed any decrease in his urine output. No significant lower extremity swelling Past Med Surg Social Fam HX - Past Medical History Attestation: Yes The following information was validated with the patient. Source: patient, obtained from family Medical history: cancer, CVA, diabetes, hypertension, renal disease, thyroid disease, syncope Psychiatric history: anxiety, depression - Past Surgical History Surgical History: appendectomy, orthopedic, other (Left below-knee amputation), thyroidectomy, other - Social History Smoking Status: Never smoker Smokeless Tobacco Status: No Alcohol use: none Drug use: none - Family History Mother Living Status: Hx Family Cardiac Disorders: Yes Father Living Status: Hx Family Cardiac Disorders: Yes Internal Medicine - H&P: Meds Atorvastatin [Lipitor] 40 mg PO HS 08/05/15 [History] DULoxetine [Cymbalta] 60 mg PO DAILY 08/05/15 [History] Docusate [Colace] 200 mg PO BID 08/05/15 [History] Donepezil [Aricept] 10 mg PO HS 08/05/15 [History] Lactulose 20 gm PO BID 08/05/15 [History] Levothyroxine [Synthroid] 175 mcg PO DAILY 08/05/15 [History] Aspirin 81 mg PO DAILY 03/18/16 [History] Metoprolol Tartrate [Lopressor] 50 mg PO BID 03/18/16 [History] Furosemide [Lasix] 40 mg PO DAILY 07/30/16 [History] Mirabegron [Myrbetriq] 50 mg PO DAILY 07/30/16 [History] Fluticasone Propionate Nasal [Flonase] 50 mcg NS DAILY PRN 10/23/16 [History] Lidocaine Patch [Lidoderm 5% patch] 1 each TP DAILY 10/23/16 [History] Loratadine [Allergy Relief] 10 mg PO DAILY 10/23/16 [History] Ranitidine HCl [Zantac] 150 mg PO BID 10/23/16 [History] Tizanidine HCl 4 mg PO BID 10/23/16 [History] Amlodipine Besylate 10 mg PO DAILY 12/04/16 [History] Cyclobenzaprine [Flexeril] 5 mg PO TID PRN 12/04/16 [History] hydrALAZINE [HydrALAZINE] 10 mg PO BID #60 tablet 12/07/16 [Rx] Famotidine [Pepcid] 20 mg PO BID 04/08/17 [History] Gabapentin [Neurontin] 300 mg PO TID 04/08/17 [History] Insulin NPH Human Isophane [Novolin N] 65 unit SQ BIDWM 04/08/17 [History] Insulin Regular, Human [Novolin R] 15 unit SQ TIDWM 04/08/17 [History] Losartan Potassium [Cozaar] 100 mg PO DAILY 04/08/17 [History] Lactobacillus [Culturelle] 2 each PO DAILY #20 cap.sprink 04/11/17 [Rx] Patient Taking Own Medication 1 each IJ CONT 04/11/17 [History] Lisinopril [Zestril] 20 mg PO DAILY 04/16/17 [History] Ferrous Sulfate 325 mg PO BIDWM #30 tablet 04/19/17 [Rx] Sulfamethoxazole/Trimeth DS [Bactrim DS] 1 each PO BID #20 tablet 04/19/17 [Rx] Allergies adhesive tape Allergy (Verified 12/27/16 11:58) Hives pregabalin [From Lyrica] Allergy (Verified 12/27/16 11:58) Swelling of Lip/Tongue/Throat Sulfa (Sulfonamide Antibiotics) Allergy (Verified 12/27/16 11:58) PER PT UNKNOWN REACTION All Systems PM: A 10-system review of systems was performed and is negative for pertinent findings except as documented above in the HPI. - Constitutional Constitutional: falls, no chills, no fever(s), no night sweats - EENT Eyes: no change in vision, no discharge, no pain, no photophobia Ears: no ear discharge, no ear pain, no tinnitus Nose, mouth and throat: no dysphagia, no nasal discharge, no neck pain, no sore throat - Cardiovascular Cardiovascular ROS IM: lightheadedness, no chest pain, no diaphoresis, no dyspnea, no palpitations, no syncope - Respiratory Respiratory: no cough, no dyspnea, no wheezing, no excessive phlegm production - Gastrointestinal Gastrointestinal: no abdominal pain, no diarrhea, no hematemesis, no hematochezia, no melena, no nausea, no vomiting - Musculoskeletal Musculoskeletal ROS IM: no numbness, no tingling - Integumentary Integumentary IM: erythema (In his right lower extremity), no rash, no unusual bruising - Neurological Neurological ROS: no confusion, no convulsions, no focal weakness, no numbness, no tingling, no tremor(s) - Hematologic/Lymphatic Hematologic/Lymphatic: no easy bruising - Constitutional Vitals: Temp Pulse Resp BP Pulse Ox 97.5 F L 75 16 114/61 96 05/05/17 09:23 05/05/17 09:23 05/05/17 09:23 05/05/17 09:23 05/05/17 09:23 General appearance: Present: cooperative, mild distress, A&O X 3, obese, answers questions appropriately - Eye Eye exam: Present: EOMI, PERRL - Neck Neck exam general surgery: Present: supple, trachea midline. Absent: lymphadenopathy - Respiratory Respiratory exam: Present: rhonchi. Absent: accessory muscle use, rales, wheezes - Cardiovascular Cardiovascular exam: Present: RRR, +S1, +S2. Absent: diastolic murmur, gallop, rubs, systolic murmur - GI/Abdominal GI/Abdominal exam: Present: normal bowel sounds, soft, no peritoneal signs. Absent: distended, tenderness - Extremities Exam Extremities exam: Present: warm, radial pulses palpable and symetrical. Absent : calf tenderness, cyanotic, pedal edema Additional comments: Erythema involving the right lower extremity over the anterior mao. Nontender to palpation. Status post left below knee amputation - Neurological Exam Neurological exam: Present: alert, oriented X3, no focal deficits. Absent: facial droop, speech deficit Internal Med - H&P Results - Labs CBC & Chem 7: 05/05/17 05:00 05/05/17 05:00 - Impressions Impressions Chest X-Ray 05/05/17 04:36 IMPRESSION: Left basilar atelectasis or pneumonia. D/ / Jorge Aguila MD / Jorge Aguila MD Interpreting Provider: Jorge Aguila MD
[2017-05-05] MEDS ORDERED: Fluticasone Propionate Nasal 50 MCG/SPRAY BOTTLE NS PRN (13:04)
[2017-05-05] MEDS ORDERED: *HR* OxyCODONE/APAP 5/325 TABLET PO PRN (13:04)
[2017-05-05] MEDS: Gabapentin 300 MG CAPSULE PO SCH ×2 (14:54→20:48)
[2017-05-05] MEDS: Baclofen 10 MG TABLET PO SCH ×2 (14:54→20:46)
[2017-05-05 20:09] LABS: Bilirubin,Urine Small (Negative); Blood,Urine Negative (Negative); Clarity,Urine Cloudy (Clear); Color,Urine Dark Yellow (Yellow); Glucose,Urine (UA) Normal (Normal); Ketones,Urine Negative (Negative); Leukocyte Esterase,Urine Small (Negative); Nitrite,Urine Negative (Negative); Protein,Urine Trace mg/dL (Neg-Trace); Specific Gravity,Urine 1.019 (1.010-1.025); Urobilinogen,Urine Normal (Normal)
[2017-05-05 20:11] LABS: Bacteria,Urine None Seen per hpf (None-Few); RBC,Urine 0-3 per hpf (0-3); Squamous Epithelial Cell,Urine Many per lpf (None-Few); WBC,Urine 15-30 per hpf (0-3)
[2017-05-05 20:22] LABS: Hyaline Casts,Urine Few per lpf (None-Few)
[2017-05-05] MEDS: Famotidine 20 MG TABLET PO SCH (20:43)
[2017-05-05] MEDS: hydrALAZINE 10 MG TABLET PO SCH (20:46)
[2017-05-05] MEDS: Neosporin OINT 15 GM TUBE TP SCH (23:00)
[2017-05-06] MEDS: Neosporin OINT 15 GM TUBE TP SCH ×2 (06:39→21:12)
[2017-05-06 07:35] LABS: Calcium 7.9 mg/dL (8.6-10.8); Potassium 5.1 mEq/L (3.5-4.5)
[2017-05-06] MEDS ORDERED: 0.9 % Sodium Chloride 1,000 ML IVC SCH (07:45)
[2017-05-06 07:57] LABS: Hemoglobin 7.9 g/dL (12.9-16.9)
[2017-05-06 07:58] LABS: Basophils # 0.1 K/mcL (0.0-0.2); Basophils % 0.5 %; Eosinophils % 5.4 %; Hematocrit 28.3 % (37.5-50.1); Immature Granulocytes % 0.5 % (0-4); Lymphocytes # 1.8 K/mcL (0.6-4.6); Lymphocytes % 17.6 %; Mean Corpuscular HGB Conc 27.9 g/dL (31.6-35.5); Mean Corpuscular Volume 78.8 fL (83.0-100.0); Monocytes # 0.8 K/mcL (0.0-1.3); Platelet Count 128 K/mcL (140-400); Red Blood Count 3.59 M/mcL (4.19-5.50); Red Cell Distribution Width 18.6 % (11.5-14.5)
[2017-05-06 08:02] LABS: Eosinophils # 0.6 K/mcL (0.0-0.6); Neutrophils # 6.9 K/mcL (1.6-8.9)
[2017-05-06] MEDS: Loratadine 10 MG TABLET PO SCH (08:15)
[2017-05-06] MEDS: Aspirin 81 MG TAB.CHEW PO SCH (08:15)
[2017-05-06] MEDS: hydrALAZINE 10 MG TABLET PO SCH (08:16)
[2017-05-06] MEDS: Baclofen 10 MG TABLET PO SCH ×3 (08:16→21:08)
[2017-05-06] MEDS: Famotidine 20 MG TABLET PO SCH (08:17)
[2017-05-06] MEDS: Gabapentin 300 MG CAPSULE PO SCH ×3 (08:17→21:08)
[2017-05-06] MEDS: amLODIPine 5 MG TABLET PO SCH (08:17)
[2017-05-06] MEDS: (Mirabegron [Myrbetriq] 50 MG) PO SCH (08:18)
[2017-05-06 08:40] LABS: Hypochromasia Present (Not Present); Polychromasia 1+ (Not Present)
--- NOTE | 2017-05-06 09:39 | Electrocardiograph Report ---
[address] [address] Test Date: 2017-05-05 Pat Name: Keanu Borges Department: 105 Room: [facility] Gender: M Certified Physical Therapist Assistant: SANDRINE : 1945 Requested By: Johnathon Holguin Order Number: [id number] Reading MD: Cynthia Borrero Measurements Intervals [place] Rate: 77 P: 3 TN: 140 QRS: -18 QRSD: 106 T: 31 QT: 402 QTc: 433 Interpretive Statements SINUS RHYTHM LOW QRS VOLTAGE IN PRECORDIAL LEADS VOLTAGE CRITERIA FOR LVH Electronically Signed On 05-06-2017 9:38:06 EDT by Cynthia Borrero
[2017-05-06] MEDS: Acetaminophen 325 MG TABLET PO PRN (12:10)
--- NOTE | 2017-05-06 14:43 | Internal Med Progress Note ---
Date of Encounter: 05/06/17 Time of Encounter: 10:00 - Assessment and plan (1) Fall Current Visit: No Status: Acute Assessment and plan: Patient has a near syncope and a fall. No obvious injury identified. CT head negative Qualifiers: Qualified Code(s): W19.XXXA - Unspecified fall, initial encounter (2) Pre-syncope Current Visit: Yes Status: Acute Assessment and plan: Etiology is undetermined. Patient has history of diabetes, need to rule out orthostatic hypotension. - Continuous cardiac monitoring to rule out arrhythmia - Echocardiogram has been done, results unremarkable - Duplex carotid bilaterally ordered - orthostatic vitals (3) Hypertension Current Visit: No Status: Chronic Assessment and plan: BP at a lower site, we will hold by mouth hydralazine 10 mg twice a day, closely monitor blood pressure Qualifiers: Hypertension type: essential hypertension Qualified Code(s): I10 - Essential (primary) hypertension (4) Diabetes mellitus Current Visit: No Status: Chronic Assessment and plan: Will continue patient on a basal and sliding-scale insulin: Levemir 10 units BID , Medium sliding scale ACHS Qualifiers: Diabetes mellitus type: type 2 Diabetes mellitus complication status: with kidney complications Diabetes mellitus complication detail: with chronic kidney disease Diabetes mellitus mcfp insulin use: without mcfp use Chronic kidney disease stage: stage 3 (moderate) Qualified Code(s): E11.22 - Type 2 diabetes mellitus with diabetic chronic kidney disease; N18.3 - Chronic kidney disease, stage 3 (moderate) (5) H/O: CVA (cerebrovascular accident) Current Visit: No Status: Chronic Assessment and plan: Continue antiplatelet for secondary prevention (6) Obesity (BMI 30-39.9) Current Visit: No Status: Chronic Assessment and plan: The lifestyle modifications (7) [id number] kidney injury Current Visit: No Status: Acute Assessment and plan: Mild elevated creatinine level from baseline. Encourage patient hydrated himself , avoid dehydration. Avoid the nephrotoxic medication. Give low-dose IV fluids now. Follow-up renal function - Time Spent With Patient 25 - 35 minutes - Subjective Interval history: Patient is a 71-year-old male admitted for near syncope. His past medical history is significant for diabetes, hypertension, see daily, history of CVA Patient was seen and examined. Doing fine, no dizziness or lightheaded, denies chest pain or shortness of breath. Patient has a chronic cough, no worsen symptoms recently. Vitals are stable. Patient was placed on syncope workup, will continue closely monitoring with telemetry. - Constitutional Vitals: Temp Pulse Resp BP Pulse Ox 97.7 F 64 18 92/55 94 05/06/17 12:00 05/06/17 12:00 05/06/17 12:00 05/06/17 12:00 05/06/17 12:00 General appearance: Present: cooperative, A&O X 3, no acute distress, obese, answers questions appropriately - Head Head exam: Present: atraumatic, normocephalic - Eye Eye exam: Present: PERRL, conjuntiva pink, sclera anicteric Pupils: Present: PERRL - Neck Neck exam general surgery: Present: supple, trachea midline. Absent: lymphadenopathy - Respiratory Respiratory exam: Present: CTAB. Absent: accessory muscle use, rales, rhonchi, wheezes - Cardiovascular Cardiovascular exam: Present: RRR, +S1, +S2. Absent: diastolic murmur, gallop, rubs, systolic murmur - GI/Abdominal GI/Abdominal exam: Present: normal bowel sounds, soft, no peritoneal signs. Absent: distended, tenderness - Extremities Exam Extremities exam: Present: warm, radial pulses palpable and symetrical. Absent : calf tenderness, cyanotic, pedal edema Additional comments: Left leg s/p AKA - Neurological Exam Neurological exam: Present: CN II-XII intact, oriented X3, no focal deficits. Absent: pronater drift, facial droop, speech deficit - Skin Skin exam: Present: dry, intact Internal Medicine: Result - Labs CBC & Chem 7: 05/06/17 06:48 05/06/17 06:48 Consult Discharge Plan - Plan Referrals: Chandan Fitzgerald MD [Primary Care Provider] -
[2017-05-06] MEDS ORDERED: D5% in Water 1,000 ML IVC PRN (15:07)
[2017-05-06] MEDS ORDERED: *HR* Dextrose 50 % in Water (Syg) 50 ML SYRINGE IVP PRN (15:07)
[2017-05-06] MEDS ORDERED: Dextrose Gel 15 GM PO PRN ×2 (15:07)
[2017-05-06] MEDS: Insulin LISPRO 300 UNITS/3 ML VIAL SQ SCH ×2 (17:20→21:11)
[2017-05-06] MEDS: 0.9 % Sodium Chloride 1,000 ML IVC SCH (17:23)
[2017-05-06 19:14] LABS: ABG Base Excess 1.9 mEq/L (-2.0 to 3.0); ABG HCO3 27.7 mEQ/L (21-27); ABG Oxygen Saturation 99 % (95-98); ABG PCO2 49 mmHg (35-45); ABG PH 7.36 pH Units (7.32-7.45); ABG PO2 120 mmHg (85-104); ABG TCO2 29.2 mEq/L (20-26); Blood Gas FiO2 28 %
[2017-05-06] MEDS ORDERED: *HR* LORazepam 2 MG/ML VIAL IVP ONE (19:15)
[2017-05-06] MEDS ORDERED: *HR* LORazepam 2 MG/ML VIAL ONE (19:16)
[2017-05-06] MEDS: Insulin DETEMIR 100 UNIT/ML X5UNITS SQ SCH (21:15)
--- NOTE | 2017-05-06 23:21 | Event Note ---
Date of Encounter: 05/06/17 Time of Encounter: 20:00 Patient examined his evening around 8 PM. Was informed by nurse the patient has been drowsy and lethargic. Patient is a 71-year-old male admitted for fall and presyncope. Workup seems to be negative. Patient was at his baseline state while he was having dinner. He became drowsy and lethargic soon afterward. He was given IV Narcan by Dr. Catalan initially, and patient woke up and was agitated. Glucose level was found to be 187 and his PCO2 on blood gas was 49. Heart rate 64, blood pressure 107/65 and O2 sat 96% on [address] has been repeated this evening and does not show any acute intracranial process. Patient does wake up to painful stimulation. Patient is obese and probably has underlying obstructive sleep apnea. Patient also has a pain pump, and initially it was thought that the pain pump could be malfunctioning and possibly administering the medication, causing him to have symptoms of drowsiness and lethargy. I discussed with the patient's aircraft painter Dr Smith. I explained to him that I initially thought was a pain pump could be causing him to be drowsy. He stated that pain medication is being administered intrathecally via pain pump, and the medication does not go cephalad. He states patient's symptoms are probably from a different source. He also stated the patient has not followed up with him and has not had medication refill for his pain pump in over 1-2 months. At this time patient is hemodynamically stable and his O2 sat is 96% on 2 L. He is not in any distress. He does wake up to painful stimulation and able to verbalize when asked questions. At this time will continue to monitor and closely with cardiac senior hadoop developer and continuous pulse ox. His IV fluids have been increased to 125 mL per hour.
[2017-05-07 04:52] LABS: Hematocrit 26.1 % (37.5-50.1); Hemoglobin 7.3 g/dL (12.9-16.9); Immature Platelets 9.8 % (1.1-6.1); Mean Corpuscular Volume 78.6 fL (83.0-100.0); Mean Platelet Volume 11.3 fL (9.4-12.4); Platelet Count 104 K/mcL (140-400); Red Blood Count 3.32 M/mcL (4.19-5.50); Red Cell Distribution Width 18.5 % (11.5-14.5)
[2017-05-07 05:06] LABS: Calcium 7.7 mg/dL (8.6-10.8); Potassium 4.8 mEq/L (3.5-4.5)
[2017-05-07 05:23] LABS: Basophils # 0.2 K/mcL (0.0-0.2); Eosinophils # 0.3 K/mcL (0.0-0.6); Lymphocytes # 1.3 K/mcL (0.6-4.6); Monocytes # 0.3 K/mcL (0.0-1.3); Neutrophils # 5.5 K/mcL (1.6-8.9)
[2017-05-07 05:24] LABS: Anisocytosis 1+ (Not Present); Microcytosis Present (Not Present); Platelet Estimate Decreased (Normal); Polychromasia 1+ (Not Present)
[2017-05-07] MEDS: Famotidine 20 MG TABLET PO SCH (06:28)
[2017-05-07] MEDS: 0.9 % Sodium Chloride 1,000 ML IVC SCH ×2 (06:29→18:50)
--- NOTE | 2017-05-07 08:03 | Pain Management Consultation ---
Date of Encounter: 05/07/17 Time of Encounter: 07:45 Assessment and Plan (1) Change in mental status Current Visit: Yes Status: Acute After interviewing the patient briefly it is clear the patient is not oriented. I was called for concern regarding intrathecal drug delivery system. In fact , after interrogation there appears to be no issues with the system that could suggest overmedication. Similarly, the patient did not keep scheduled outpatient appointments for the last couple weeks. However, I have requested that the registered nurse from the pump service reduce the drug delivery rate by 30%. I would recommend a urine drug screen as well. I do not see any clear indication that intrathecal drug delivery is affecting this patient's presentation on this admission today. By reducing the rate of intrathecal drug delivery the patient will not need to be refilled from a pump standpoint until May 23. The patient was last seen in our office on 03/22/2017. We will follow along briefly to ensure no issues related to the pump occur and then when the patient improves, we will see him as an outpatient as normal. Qualifiers: Altered mental status type: disorientation Qualified Code(s): R41.0 - Disorientation, unspecified History of Present Illness Chief complaint: Mental staus change HPI: Mr. Borges is a 71 year old male The patient was admitted 05/05 for syncope. I was called by hospitalist for more information regarding the intrathecal drug delivery system last night. 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 Patient interviewed this morning. Patient did not clearly able to answer the questions properly. Does not appear to be complaining of any pain. Patient stated he believed that his pump was filled. The patient does not recollect that he missed 2 appointments in the past couple weeks. Past Med Surg Social Fam HX - Past Medical History Medical history: cancer, CVA, diabetes, hypertension, renal disease, thyroid disease, syncope Psychiatric history: anxiety, depression - Past Surgical History Surgical History: appendectomy, orthopedic, other (Left below-knee amputation), thyroidectomy, other - Social History Smoking Status: Never smoker Smokeless Tobacco Status: No Alcohol use: none Drug use: none - Family History Mother Living Status: Hx Family Cardiac Disorders: Yes Father Living Status: Hx Family Cardiac Disorders: Yes Medications and Allergies Atorvastatin [Lipitor] 40 mg PO HS 08/05/15 [History] DULoxetine [Cymbalta] 60 mg PO DAILY 08/05/15 [History] Docusate [Colace] 200 mg PO BID 08/05/15 [History] Donepezil [Aricept] 10 mg PO HS 08/05/15 [History] Lactulose 20 gm PO BID 08/05/15 [History] Levothyroxine [Synthroid] 175 mcg PO DAILY 08/05/15 [History] Aspirin 81 mg PO DAILY 03/18/16 [History] Metoprolol Tartrate [Lopressor] 50 mg PO BID 03/18/16 [History] Furosemide [Lasix] 40 mg PO DAILY 07/30/16 [History] Mirabegron [Myrbetriq] 50 mg PO DAILY 07/30/16 [History] Fluticasone Propionate Nasal [Flonase] 50 mcg NS DAILY PRN 10/23/16 [History] Lidocaine Patch [Lidoderm 5% patch] 1 patch TP DAILY 10/23/16 [History] Loratadine [Allergy Relief] 10 mg PO DAILY 10/23/16 [History] Ranitidine HCl [Zantac] 150 mg PO BID 10/23/16 [History] Amlodipine Besylate 10 mg PO DAILY 12/04/16 [History] Cyclobenzaprine [Flexeril] 5 mg PO TID PRN 12/04/16 [History] hydrALAZINE [HydrALAZINE] 10 mg PO BID #60 tablet 12/07/16 [Rx] Famotidine [Pepcid] 20 mg PO BID 04/08/17 [History] Gabapentin [Neurontin] 300 mg PO TID 04/08/17 [History] Insulin NPH Human Isophane [Novolin N] 65 unit SQ BIDWM 04/08/17 [History] Insulin Regular, Human [Novolin R] 15 unit SQ TIDWM 04/08/17 [History] Losartan Potassium [Cozaar] 100 mg PO DAILY 04/08/17 [History] Lisinopril [Zestril] 20 mg PO DAILY 04/16/17 [History] Ferrous Sulfate 325 mg PO BIDWM #30 tablet 04/19/17 [Rx] Baclofen [Lioresal] 10 mg PO TID 05/05/17 [History] Oxycodone HCl/Acetaminophen [Percocet 5-325 mg Tablet] 1 tab PO Q4H PRN [History] Allergies adhesive tape Allergy (Verified 12/27/16 11:58) Hives pregabalin [From Lyrica] Allergy (Verified 12/27/16 11:58) Swelling of Lip/Tongue/Throat Sulfa (Sulfonamide Antibiotics) Allergy (Verified 12/27/16 11:58) PER PT UNKNOWN REACTION Review of Systems ROS unobtainable: due to mental status Physical Exam Initial Vital Signs Temp Pulse Resp BP Pulse Ox 98.6 F 78 16 83/47 95 05/05/17 03:35 05/05/17 03:35 05/05/17 03:35 05/05/17 03:35 05/05/17 03:35 - General physical appearance General physical appearance: no distress, no pain - Eyes Eye exam: normal ocular movement - Neurologic confused, disoriented - Musculoskeletal Musculoskeletal: other (Left AKA) - Psychiatric Psychiatric: other (Disoriented) Results - Labs 05/07/17 04:33 05/07/17 04:33 Abnormal lab results RBC 3.32 M/mcL (4.19-5.50) L 05/07/17 04:33 Hgb 7.3 g/dL (12.9-16.9) L 05/07/17 04:33 Hct 26.1 % (37.5-50.1) L 05/07/17 04:33 MCV 78.6 fL (83.0-100.0) L 05/07/17 04:33 MCH 22.0 pg (28.0-33.3) L 05/07/17 04:33 MCHC 28.0 g/dL (31.6-35.5) L 05/07/17 04:33 RDW 18.5 % (11.5-14.5) H 05/07/17 04:33 Plt Count 104 K/mcL (140-400) L 05/07/17 04:33 Myelocytes % 4.0 % (0) H 05/07/17 04:33 Platelet Estimate Decreased (Normal) L 05/07/17 04:33 Immature Plt Fraction 9.8 % (1.1-6.1) H 05/07/17 04:33 Polychromasia 1+ (Not Present) A 05/07/17 04:33 Hypochromasia Present (Not Present) A 05/06/17 06:48 Poikilocytosis 1+ (Not Present) A 05/05/17 05:00 Anisocytosis 1+ (Not Present) A 05/07/17 04:33 Microcytosis Present (Not Present) A 05/07/17 04:33 ABG pCO2 49 mmHg (35-45) H 05/06/17 19:08 ABG pO2 120 mmHg (85-104) H 05/06/17 19:08 ABG HCO3 27.7 mEQ/L (21-27) H 05/06/17 19:08 ABG Total CO2 29.2 mEq/L (20-26) H 05/06/17 19:08 ABG O2 Saturation 99 % (95-98) H 05/06/17 19:08 Potassium 4.8 mEq/L (3.5-4.5) H 05/07/17 04:33 BUN 60 mg/dL (8-26) H 05/07/17 04:33 Creatinine 2.69 mg/dL (0.72-1.25) H 05/07/17 04:33 Est GFR ( Amer) 29 (> 60) L 05/07/17 04:33 Est GFR (Non-Af Amer) 24 (> 60) L 05/07/17 04:33 Glucose 149 mg/dL (70-99) H 05/07/17 04:33 POC Glucose 179 (58-89) H 05/06/17 18:49 Calculated Osmolality 310 (280-300) H 05/07/17 04:33 Calcium 7.7 mg/dL (8.6-10.8) L 05/07/17 04:33 AST 38 Units/L (5-34) H 05/05/17 05:00 Globulin 3.6 g/dL (2.4-3.5) H 05/05/17 05:00 Albumin/Globulin Ratio 1.0 (1.1-2.2) L 05/05/17 05:00 Urine Clarity Cloudy (Clear) A 05/05/17 19:48 Urine Bilirubin Small (Negative) H 05/05/17 19:48 Ur Leukocyte Esterase Small (Negative) H 05/05/17 19:48 Urine Microscopic WBC 15-30 per hpf (0-3) H 05/05/17 19:48 Ur Squamous Epith Cells Many per lpf (None-Few) H 05/05/17 19:48 Ur Culture Indicated? YES (NO) A 05/05/17 19:48 Diabetes panel 05/07/17 Range/Units 04:33 Sodium 140 (136-145) mEq/L Potassium 4.8 H (3.5-4.5) mEq/L Chloride 109 (98-109) mEq/L Carbon Dioxide 24 (19-29) mEq/L BUN 60 H (8-26) mg/dL Creatinine 2.69 H (0.72-1.25) mg/dL Glucose 149 H (70-99) mg/dL Calcium 7.7 L (8.6-10.8) mg/dL Calcium panel 05/07/17 Range/Units 04:33 Calcium 7.7 L (8.6-10.8) mg/dL Pituitary panel 05/07/17 Range/Units 04:33 Sodium 140 (136-145) mEq/L Potassium 4.8 H (3.5-4.5) mEq/L Chloride 109 (98-109) mEq/L Carbon Dioxide 24 (19-29) mEq/L BUN 60 H (8-26) mg/dL Creatinine 2.69 H (0.72-1.25) mg/dL Glucose 149 H (70-99) mg/dL Calcium 7.7 L (8.6-10.8) mg/dL Adrenal panel 05/07/17 Range/Units 04:33 Sodium 140 (136-145) mEq/L Potassium 4.8 H (3.5-4.5) mEq/L Chloride 109 (98-109) mEq/L Carbon Dioxide 24 (19-29) mEq/L BUN 60 H (8-26) mg/dL Creatinine 2.69 H (0.72-1.25) mg/dL Glucose 149 H (70-99) mg/dL Calcium 7.7 L (8.6-10.8) mg/dL All other labs normal. Consult Discharge Plan - Plan Referrals: Chandan Fitzgerald MD [Primary Care Provider] -
[2017-05-07] MEDS: Baclofen 10 MG TABLET PO SCH ×2 (08:13→16:24)
[2017-05-07] MEDS: Gabapentin 300 MG CAPSULE PO SCH ×2 (08:13→16:25)
[2017-05-07] MEDS: Aspirin 81 MG TAB.CHEW PO SCH (08:25)
[2017-05-07] MEDS: amLODIPine 5 MG TABLET PO SCH (08:27)
[2017-05-07] MEDS: Loratadine 10 MG TABLET PO SCH (08:27)
[2017-05-07] MEDS: Insulin DETEMIR 100 UNIT/ML X5UNITS SQ SCH ×2 (08:28→20:13)
[2017-05-07] MEDS: (Mirabegron [Myrbetriq] 50 MG) PO SCH (08:29)
[2017-05-07] MEDS: Insulin LISPRO 300 UNITS/3 ML VIAL SQ SCH ×4 (08:29→20:15)
[2017-05-07] MEDS: Neosporin OINT 15 GM TUBE TP SCH ×2 (08:30→20:18)
--- NOTE | 2017-05-07 09:08 | Nephrology Consult Note ---
Date of Encounter: 05/07/17 Time of Encounter: 09:06 Assessment and Plan (1) Acute kidney failure, unspecified Current Visit: No Status: Acute The patient has acute kidney injury superimposed on stage III chronic kidney disease. Baseline creatinine is 1.3-1.6. Potential etiologies include hypotension, decreased creatinine secretion because of Bactrim, volume depletion , other etiology. Post renal obstruction should also be ruled out. IV fluids should be continued. Antihypertensive medication should continue to be placed on hold. A renal ultrasound will be ordered. Renal function will be monitored. Nephrotoxins should be avoided. Qualifiers: Acute renal failure type: unspecified Qualified Code(s): N17.9 - Acute kidney failure, unspecified (2) Chronic kidney disease, stage III (moderate) Current Visit: Yes Status: Chronic History of Present Illness - History of Present Illness This is a 71-year-old male who is followed for stage III chronic kidney disease with a baseline creatinine of 1.3-1.6. Patient was admitted to the hospital because of a fall and pre-syncopal symptoms. He has been found to have acute kidney injury with a creatinine of 2.69. On admission his creatinine was 2.96. He was noted to be hypotensive with a blood pressure as low as 83/47. He had been admitted to the hospital on April 16 through April 19 with cellulitis of the right lower extremity. He was discharged on Bactrim for 10 days. She has been placed on IV fluids with minimal improvement in his renal function. Most of his antihypertensive medications have been placed on hold. Outpatient records indicate he had been taking hydralazine losartan lisinopril Lasix and metoprolol. Patient is somnolent. He is unable to give any history. History was obtained from the medical record. Past Med Surg Social Fam HX - Past Medical History Medical history: cancer, CVA, diabetes, hypertension, renal disease, thyroid disease, syncope Psychiatric history: anxiety, depression - Past Surgical History Surgical History: appendectomy, orthopedic, other (Left below-knee amputation), thyroidectomy, other - Social History Smoking Status: Never smoker Smokeless Tobacco Status: No Alcohol use: none Drug use: none - Family History Mother Living Status: Hx Family Cardiac Disorders: Yes Father Living Status: Hx Family Cardiac Disorders: Yes Medications and Allergies Atorvastatin [Lipitor] 40 mg PO HS 08/05/15 [History] DULoxetine [Cymbalta] 60 mg PO DAILY 08/05/15 [History] Docusate [Colace] 200 mg PO BID 08/05/15 [History] Donepezil [Aricept] 10 mg PO HS 08/05/15 [History] Lactulose 20 gm PO BID 08/05/15 [History] Levothyroxine [Synthroid] 175 mcg PO DAILY 08/05/15 [History] Aspirin 81 mg PO DAILY 03/18/16 [History] Metoprolol Tartrate [Lopressor] 50 mg PO BID 03/18/16 [History] Furosemide [Lasix] 40 mg PO DAILY 07/30/16 [History] Mirabegron [Myrbetriq] 50 mg PO DAILY 07/30/16 [History] Fluticasone Propionate Nasal [Flonase] 50 mcg NS DAILY PRN 10/23/16 [History] Lidocaine Patch [Lidoderm 5% patch] 1 patch TP DAILY 10/23/16 [History] Loratadine [Allergy Relief] 10 mg PO DAILY 10/23/16 [History] Ranitidine HCl [Zantac] 150 mg PO BID 10/23/16 [History] Amlodipine Besylate 10 mg PO DAILY 12/04/16 [History] Cyclobenzaprine [Flexeril] 5 mg PO TID PRN 12/04/16 [History] hydrALAZINE [HydrALAZINE] 10 mg PO BID #60 tablet 12/07/16 [Rx] Famotidine [Pepcid] 20 mg PO BID 04/08/17 [History] Gabapentin [Neurontin] 300 mg PO TID 04/08/17 [History] Insulin NPH Human Isophane [Novolin N] 65 unit SQ BIDWM 04/08/17 [History] Insulin Regular, Human [Novolin R] 15 unit SQ TIDWM 04/08/17 [History] Losartan Potassium [Cozaar] 100 mg PO DAILY 04/08/17 [History] Lisinopril [Zestril] 20 mg PO DAILY 04/16/17 [History] Ferrous Sulfate 325 mg PO BIDWM #30 tablet 04/19/17 [Rx] Baclofen [Lioresal] 10 mg PO TID 05/05/17 [History] Oxycodone HCl/Acetaminophen [Percocet 5-325 mg Tablet] 1 tab PO Q4H PRN [History] Allergies adhesive tape Allergy (Verified 12/27/16 11:58) Hives pregabalin [From Lyrica] Allergy (Verified 12/27/16 11:58) Swelling of Lip/Tongue/Throat Sulfa (Sulfonamide Antibiotics) Allergy (Verified 12/27/16 11:58) PER PT UNKNOWN REACTION Review of Systems ROS unobtainable: due to mental status Exam - Vital Signs Vital signs: Initial Vital Signs Temp Pulse Resp BP Pulse Ox 98.6 F 78 16 83/47 95 05/05/17 03:35 05/05/17 03:35 05/05/17 03:35 05/05/17 03:35 05/05/17 03:35 Vital Signs - Last 8 Hours Temp Pulse Resp BP Pulse Ox 05/07/17 08:17 97.5 F L 67 17 144/70 96 05/07/17 04:12 97.7 F 53 10 100/62 93 Intake and Output 05/06/17 05/07/17 05/07/17 23:59 07:59 15:59 Intake Total 500 / 500 1000 / 1000 Output Total 450 / 450 375 / 375 Balance 500 / 500 550 / 550 -375 / -375 Intake: IV Fluids 500 / 500 1000 / 1000 0.9 % Sodium Chloride 1, 500 / 500 1000 / 1000 000 ML @ 90 mls/hr IVC . [id number] [facility] Rx#:[id number] Output: Urine 450 / 450 375 / 375 Other: # Urine Diapers 1 Weight 109.1 kg Blood Glucose* 179 Patient Weight 05/07/17 23:59 Weight 109.1 kg - General Appearance Exam: Patient is somnolent. He awakens to his name and drifts right back off to sleep. Blood pressure has ranged from 100/62-144/70. Lungs diminished breath sounds. Heart regular rate and rhythm. Abdomen shows normal bowel sounds. There is no guarding rigidity or tenderness. Patient is status post left above- knee amputation. Right lower extremity shows mild edema and very faint erythema of the pretibial area. Results - Lab Results 05/07/17 04:33 05/07/17 04:33 Most recent lab results ABG pH 7.36 pH Units (7.32-7.45) 05/06/17 19:08 ABG pCO2 49 mmHg (35-45) H 05/06/17 19:08 ABG pO2 120 mmHg (85-104) H 05/06/17 19:08 ABG HCO3 27.7 mEQ/L (21-27) H 05/06/17 19:08 ABG O2 Saturation 99 % (95-98) H 05/06/17 19:08 Calcium 7.7 mg/dL (8.6-10.8) L 05/07/17 04:33 Consult Discharge Plan - Plan Referrals: Chandan Fitzgerald MD [Primary Care Provider] -
--- NOTE | 2017-05-07 15:43 | Carotid Imaging Report ---
Carotid Duplex Patient Name:Keanu Borges Order Number:[id number] Procedure Date:05/05/2017 Date:1945ge:71 yrs Gender:Male Lt BP:114 / 61 mmHg Rt.BP:114 / 61 mmHgHeart Rate: Location:[facility] Room #: 2A51 Rail Signal Worker:Buffy Collado Referring MD:Wally Saunders MD water systems designer:Chandan Fitzgerald MD Reading MD:Levy Rios MD Primary Indications:Presyncope Risk Factors Yes/No Hypertension Hypercholesterolemia Diabetes Impressions: The right carotid artery is normal throughout. The left internal carotid artery has a 40-59% stenosis. Recommendations: Risk factor reduction. Follow-up carotid duplex in 1 year. Findings Carotid Duplex: Right: There is nonstenotic plaque in the right bifurcation. There is irregular heterogeneous plaque. There is nonstenotic plaque in the right proximal internal carotid artery. There is smooth heterogeneous plaque. Left: There is nonstenotic plaque in the left mid common carotid artery. There is smooth heterogeneous plaque. There is 40-59% stenosis in the left bifurcation. There is smooth calcified plaque. There is 40-59% stenosis in the left proximal internal carotid artery. There is smooth calcified plaque. The left eca has turbulent flow with plaque. Carotid Results Right PSV EDV Assessment Proximal CCA 132 25 Normal Mid CCA 112 24 Normal Distal CCA 64 17 Normal Bifurcation 73 18 Non Stenotic Plaque Proximal ICA 89 30 Non Stenotic Plaque Mid ICA 87 26 Normal Distal ICA 46 16 Normal ECA 178 9 Normal Vertebral Artery 49 16 Antegrade Flow Left PSV EDV Assessment Proximal CCA 144 31 Normal Mid CCA 98 19 Non Stenotic Plaque Distal CCA 107 18 Normal Bifurcation 138 28 40-59% stenosis Proximal ICA 124 27 40-59% stenosis Mid ICA 101 29 Normal Distal ICA 87 29 Normal ECA 168 0 Non Stenotic Plaque Vertebral Artery 31 5 Antegrade Flow Ratio's Right ICA/CCA Ratio: 0.79 ICA/CCA Values: 89/112 Left ICA/CCA Ratio: 1.27 ICA/CCA Values: 124/98 Updated by Levy Rios MD on 05/07/2017 3:36:27 PM electronically signed on 05/07/2017 3:37:02 PM with status of Final
--- NOTE | 2017-05-07 18:20 | Internal Med Progress Note ---
Date of Encounter: 05/07/17 Time of Encounter: 10:00 - Assessment and plan (1) Fall Current Visit: No Status: Acute Assessment and plan: Patient has a near syncope and a fall. No obvious injury identified. CT head negative. Pt/OT evaluation. Qualifiers: Qualified Code(s): W19.XXXA - Unspecified fall, initial encounter (2) Pre-syncope Current Visit: Yes Status: Acute Assessment and plan: Etiology is undetermined. Patient has history of diabetes, need to rule out orthostatic hypotension. - Continuous cardiac monitoring to rule out arrhythmia - Echocardiogram has been done, results unremarkable - Duplex carotid bilaterally ordered - orthostatic vitals (3) Hypertension Current Visit: No Status: Chronic Assessment and plan: BP at a lower site, we will hold by mouth hydralazine 10 mg twice a day, closely monitor blood pressure Qualifiers: Hypertension type: essential hypertension Qualified Code(s): I10 - Essential (primary) hypertension (4) Diabetes mellitus Current Visit: No Status: Chronic Assessment and plan: Will continue patient on a basal and sliding-scale insulin: Levemir 10 units BID , Medium sliding scale ACHS Qualifiers: Diabetes mellitus type: type 2 Diabetes mellitus complication status: with kidney complications Diabetes mellitus complication detail: with chronic kidney disease Diabetes mellitus assistant terminal manager insulin use: without detention use Chronic kidney disease stage: stage 3 (moderate) Qualified Code(s): E11.22 - Type 2 diabetes mellitus with diabetic chronic kidney disease; N18.3 - Chronic kidney disease, stage 3 (moderate) (5) H/O: CVA (cerebrovascular accident) Current Visit: No Status: Chronic Assessment and plan: Continue antiplatelet for secondary prevention (6) Obesity (BMI 30-39.9) Current Visit: No Status: Chronic Assessment and plan: The lifestyle modifications (7) [id number] kidney injury Current Visit: No Status: Acute Assessment and plan: Mild elevated creatinine level from baseline. Encourage patient hydrated himself , avoid dehydration. Avoid the nephrotoxic medication. Cont IVF. Follow-up renal function. Nephrology consult appreciated, follow uo renal US to r/o obstruction. (8) Acute encephalopathy Current Visit: Yes Status: Acute Assessment and plan: Etiology is undetermined. Patient is on pain pump with intrathecal Dilaudid and baclofen, he is also on multiple medications has sedative effect. Not sure if he takes extra pain medication since he didn't follow up with pain management recently. - Head CT negative - ABG excluded CO2 retention, PCO2 49 - Patient has no hypoglycemia episodes identified, although closely glucose monitoring applied. - Pain management consult appreciated, pain pump has been reduced the rate. - We will further check urine toxicity. - Reduce gabapentin dose. Discontinue by mouth baclofen. - Continue closely monitor patient, aspiration precaution, fall precaution. - Time Spent With Patient 25 - 35 minutes - Subjective Interval history: Patient is a 71-year-old male admitted for near syncope. His past medical history is significant for diabetes, hypertension, see daily, history of CVA Patient was seen and examined. Overnight event noticed. Pt is still drawsy when I see him. Can be waken up. Vitals are stable. Pain management consult appreciated, pain pump rate has been reduced 30% now. Also reduce pt's gabapentin dose as his renal function declines. D/C po baclofen because pt use it as intrathecal. Will cont closely monitor pt. - Constitutional Vitals: Temp Pulse Resp BP Pulse Ox 97.7 F 54 10 89/50 97 05/07/17 16:41 05/07/17 16:41 05/07/17 16:41 05/07/17 16:41 05/07/17 16:41 General appearance: Present: cooperative, A&O X 3, no acute distress, obese, answers questions appropriately - Head Head exam: Present: atraumatic, normocephalic - Eye Eye exam: Present: PERRL, conjuntiva pink, sclera anicteric Pupils: Present: PERRL - Neck Neck exam general surgery: Present: supple, trachea midline. Absent: lymphadenopathy - Respiratory Respiratory exam: Present: CTAB. Absent: accessory muscle use, rales, rhonchi, wheezes - Cardiovascular Cardiovascular exam: Present: RRR, +S1, +S2. Absent: diastolic murmur, gallop, rubs, systolic murmur - GI/Abdominal GI/Abdominal exam: Present: normal bowel sounds, soft, no peritoneal signs. Absent: distended, tenderness - Extremities Exam Extremities exam: Present: warm, radial pulses palpable and symetrical. Absent : calf tenderness, cyanotic, pedal edema Additional comments: Left AKA - Neurological Exam Neurological exam: Present: CN II-XII intact, oriented X3, no focal deficits. Absent: pronater drift, facial droop, speech deficit - Skin Skin exam: Present: dry, intact Internal Medicine: Result - Labs CBC & Chem 7: 05/07/17 04:33 05/07/17 04:33 Labs: Short CBC 05/07/17 Range/Units 04:33 WBC 7.9 (4.3-11.1) K/mcL Hgb 7.3 L (12.9-16.9) g/dL Hct 26.1 L (37.5-50.1) % Plt Count 104 L (140-400) K/mcL Neutrophils # 5.5 (1.6-8.9) K/mcL BMP 05/07/17 04:33 Sodium 140 Potassium 4.8 H Chloride 109 Carbon Dioxide 24 BUN 60 H Creatinine 2.69 H Glucose 149 H Calcium 7.7 L - ABG Interpretation ABG results: ABG ABG pH 7.36 pH Units (7.32-7.45) 05/06/17 19:08 ABG pCO2 49 mmHg (35-45) H 05/06/17 19:08 ABG pO2 120 mmHg (85-104) H 05/06/17 19:08 ABG O2 Saturation 99 % (95-98) H 05/06/17 19:08 - Impressions Impressions Head CT 05/06/17 18:56 IMPRESSION: No acute intracranial abnormality. D/ / Levy Davidson / Levy Davidson Interpreting Provider: Levy Davidson Retroperitoneum Ultrasound 05/07/17 15:00 IMPRESSION: 1. No obstructive uropathy or focal renal lesions. 2. The patient was unable to void the urinary bladder during exam. D/ / Damian Liao MD / Damian Liao MD Interpreting Provider: Damian Liao MD Consult Discharge Plan - Plan Referrals: Chandan Fitzgerald MD [Primary Care Provider] -
[2017-05-07] MEDS: *HR* Heparin 5,000 UNIT/ML VIAL SQ SCH (18:49)
--- NOTE | 2017-05-07 19:57 | Neurology - Consult Note ---
Date of Encounter: 05/07/17 Time of Encounter: 19:53 Assessment and Plan (1) Acute encephalopathy Current Visit: Yes Status: Acute Do agree that his transient hypersomnolenece and mental status were likely related to medication side effects, from pain pump on top of medical conditions. His mental status at present time is at his baseline and significantly improved after reduction of pain pump medication dosage. CT of head showed no acute intracranial abnormality and i would recommend no further imaging studies. please continue medical and supportive care. Will sign off at this time and please call if any questions. Thank you very much for the consultation History of Present Illness Chief complaint: mental status changes HPI: Mr. Borges is a 71 year old male with PMH significant for lumbar DDD, history of AKA, LYSSA, amputation stump pain, with pain pump, HTN, failed back syndrome , DM, chronic kidney disease who was initially admitted to the hospital on 05/05 due to not feeling well and an episode of near syncope. Neurology is consulted due to changes in mental status. Patient was found very sleepy today AM. CT of head was reported no acute intracranial abnormality. Patient was found to have pain pump for chronic phantom pain. At the time of this interview, patient is wide awake and alert and has no significant discomforts. He feels better. He is alert and oriented to place time and person. Cognitive function appears intact at present time. This occurred after his pain pump dosage was reduced. Past Med Surg Social Fam HX - Past Medical History Medical history: cancer, CVA, diabetes, hypertension, renal disease, thyroid disease, syncope Psychiatric history: anxiety, depression - Past Surgical History Surgical History: appendectomy, orthopedic, other (Left below-knee amputation), thyroidectomy, other - Social History Smoking Status: Never smoker Smokeless Tobacco Status: No Alcohol use: none Drug use: none - Family History Mother Living Status: Hx Family Cardiac Disorders: Yes Father Living Status: Hx Family Cardiac Disorders: Yes Medications and Allergies Atorvastatin [Lipitor] 40 mg PO HS 08/05/15 [History] DULoxetine [Cymbalta] 60 mg PO DAILY 08/05/15 [History] Docusate [Colace] 200 mg PO BID 08/05/15 [History] Donepezil [Aricept] 10 mg PO HS 08/05/15 [History] Lactulose 20 gm PO BID 08/05/15 [History] Levothyroxine [Synthroid] 175 mcg PO DAILY 08/05/15 [History] Aspirin 81 mg PO DAILY 03/18/16 [History] Metoprolol Tartrate [Lopressor] 50 mg PO BID 03/18/16 [History] Furosemide [Lasix] 40 mg PO DAILY 07/30/16 [History] Mirabegron [Myrbetriq] 50 mg PO DAILY 07/30/16 [History] Fluticasone Propionate Nasal [Flonase] 50 mcg NS DAILY PRN 10/23/16 [History] Lidocaine Patch [Lidoderm 5% patch] 1 patch TP DAILY 10/23/16 [History] Loratadine [Allergy Relief] 10 mg PO DAILY 10/23/16 [History] Ranitidine HCl [Zantac] 150 mg PO BID 10/23/16 [History] Amlodipine Besylate 10 mg PO DAILY 12/04/16 [History] Cyclobenzaprine [Flexeril] 5 mg PO TID PRN 12/04/16 [History] hydrALAZINE [HydrALAZINE] 10 mg PO BID #60 tablet 12/07/16 [Rx] Famotidine [Pepcid] 20 mg PO BID 04/08/17 [History] Gabapentin [Neurontin] 300 mg PO TID 04/08/17 [History] Insulin NPH Human Isophane [Novolin N] 65 unit SQ BIDWM 04/08/17 [History] Insulin Regular, Human [Novolin R] 15 unit SQ TIDWM 04/08/17 [History] Losartan Potassium [Cozaar] 100 mg PO DAILY 04/08/17 [History] Lisinopril [Zestril] 20 mg PO DAILY 04/16/17 [History] Ferrous Sulfate 325 mg PO BIDWM #30 tablet 04/19/17 [Rx] Baclofen [Lioresal] 10 mg PO TID 05/05/17 [History] Oxycodone HCl/Acetaminophen [Percocet 5-325 mg Tablet] 1 tab PO Q4H PRN [History] Allergies adhesive tape Allergy (Verified 12/27/16 11:58) Hives pregabalin [From Lyrica] Allergy (Verified 12/27/16 11:58) Swelling of Lip/Tongue/Throat Sulfa (Sulfonamide Antibiotics) Allergy (Verified 12/27/16 11:58) PER PT UNKNOWN REACTION All Systems: A 10-system review of systems was performed and is negative for pertinent findings except as documented above in the HPI. Physical Examination - Vital Signs Vital Signs: Initial Vital Signs Temp Pulse Resp BP Pulse Ox 98.6 F 78 16 83/47 95 05/05/17 03:35 05/05/17 03:35 05/05/17 03:35 05/05/17 03:35 05/05/17 03:35 - Constitutional General appearance: comfortable - Neurologic Sensorimotor examination: intact Detailed motor examination: grossly full strength in all extremities (Patient has left AKA. right leg has edema nad red color changes.) Motor examination - right side: 5/5: deltoids, biceps, triceps, wrist flexion, wrist extension, environmental educator, hip flexors, tibialis Anterior, quadriceps, toe extension (EHL), plantarflexion Motor examination - left side: 5/5: deltoids, biceps, triceps, wrist flexion, wrist extension Detailed sensory examination: other (Grossly intact) Posture: other (None) Reflexes: Biceps: 1+, Triceps: 1+, Brachioradialis: 1+, Patella: 1+, Achilles: 1 + Mental Status Examination: awake, alert, oriented to person, oriented to place, oriented to time, follows commands appropriately, answers questions appropriately, no agnosia, no aphasia, no aproxia Cranial nerve examination: PERRL, EOMI, visual caal intact, corneal reflexes brisk symmetrically, sensory to face intact, mastication intact, no facial asymmetry is present, no dysarthria, hearing is intact symmetrically, soft palate elevates bilaterally upon phonation, gag reflex intact, flexes SCM and trapezius muscles symmetrically with full power, tongue protrudes midline, no atrophy or facial fasiculations present Results - Laboratory Findings CBC and BMP: 05/07/17 04:33 05/07/17 04:33 Abnormal lab findings: Abnormal lab results RBC 3.32 M/mcL (4.19-5.50) L 05/07/17 04:33 Hgb 7.3 g/dL (12.9-16.9) L 05/07/17 04:33 Hct 26.1 % (37.5-50.1) L 05/07/17 04:33 MCV 78.6 fL (83.0-100.0) L 05/07/17 04:33 MCH 22.0 pg (28.0-33.3) L 05/07/17 04:33 MCHC 28.0 g/dL (31.6-35.5) L 05/07/17 04:33 RDW 18.5 % (11.5-14.5) H 05/07/17 04:33 Plt Count 104 K/mcL (140-400) L 05/07/17 04:33 Myelocytes % 4.0 % (0) H 05/07/17 04:33 Platelet Estimate Decreased (Normal) L 05/07/17 04:33 Immature Plt Fraction 9.8 % (1.1-6.1) H 05/07/17 04:33 Polychromasia 1+ (Not Present) A 05/07/17 04:33 Hypochromasia Present (Not Present) A 05/06/17 06:48 Poikilocytosis 1+ (Not Present) A 05/05/17 05:00 Anisocytosis 1+ (Not Present) A 05/07/17 04:33 Microcytosis Present (Not Present) A 05/07/17 04:33 ABG pCO2 49 mmHg (35-45) H 05/06/17 19:08 ABG pO2 120 mmHg (85-104) H 05/06/17 19:08 ABG HCO3 27.7 mEQ/L (21-27) H 05/06/17 19:08 ABG Total CO2 29.2 mEq/L (20-26) H 05/06/17 19:08 ABG O2 Saturation 99 % (95-98) H 05/06/17 19:08 Potassium 4.8 mEq/L (3.5-4.5) H 05/07/17 04:33 BUN 60 mg/dL (8-26) H 05/07/17 04:33 Creatinine 2.69 mg/dL (0.72-1.25) H 05/07/17 04:33 Est GFR ( Amer) 29 (> 60) L 05/07/17 04:33 Est GFR (Non-Af Amer) 24 (> 60) L 05/07/17 04:33 Glucose 149 mg/dL (70-99) H 05/07/17 04:33 POC Glucose 163 (58-89) H 05/07/17 17:21 Calculated Osmolality 310 (280-300) H 05/07/17 04:33 Calcium 7.7 mg/dL (8.6-10.8) L 05/07/17 04:33 AST 38 Units/L (5-34) H 05/05/17 05:00 Globulin 3.6 g/dL (2.4-3.5) H 05/05/17 05:00 Albumin/Globulin Ratio 1.0 (1.1-2.2) L 05/05/17 05:00 Urine Clarity Cloudy (Clear) A 05/05/17 19:48 Urine Bilirubin Small (Negative) H 05/05/17 19:48 Ur Leukocyte Esterase Small (Negative) H 05/05/17 19:48 Urine Microscopic WBC 15-30 per hpf (0-3) H 05/05/17 19:48 Ur Squamous Epith Cells Many per lpf (None-Few) H 05/05/17 19:48 Ur Culture Indicated? YES (NO) A 05/05/17 19:48 Consult Discharge Plan - Plan Referrals: Chandan Fitzgerald MD [Primary Care Provider] -
[2017-05-07] MEDS: Gabapentin 100 MG CAPSULE PO SCH (20:14)
[2017-05-08 01:12] LABS: Amphetamine Screen,Urine Negative ng/mL (Cutoff=1000); Barbiturate Screen,Urine Negative ng/mL (Cutoff=200); Benzodiazepines Screen,Urine Negative ng/mL (Cutoff=200); Cannabinoid Screen,Urine Negative ng/mL (Cutoff = 50); Cocaine Screen,Urine Negative ng/mL (Cutoff= 300); Opiate Screen,Urine Negative ng/mL (Cutoff=300); Phencyclidine Screen,Urine Negative ng/mL (Cutoff=25)
[2017-05-08 01:30] LABS: Bilirubin,Urine Negative (Negative); Blood,Urine Negative (Negative); Clarity,Urine Clear (Clear); Color,Urine Yellow (Yellow); Glucose,Urine (UA) Normal (Normal); Ketones,Urine Negative (Negative); Leukocyte Esterase,Urine Negative (Negative); Nitrite,Urine Negative (Negative); PH,Urine 5.5 pH Units (5.0-8.0); Protein,Urine Negative (Neg-Trace); Specific Gravity,Urine 1.017 (1.010-1.025); Urobilinogen,Urine Normal (Normal)
[2017-05-08] MEDS: *HR* Heparin 5,000 UNIT/ML VIAL SQ SCH ×2 (05:36→17:01)
[2017-05-08] MEDS: 0.9 % Sodium Chloride 1,000 ML IVC SCH ×3 (05:37→23:28)
[2017-05-08 06:16] LABS: Hemoglobin 8.7 g/dL (12.9-16.9)
[2017-05-08 06:18] LABS: Basophils % 0.5 %; Eosinophils # 0.4 K/mcL (0.0-0.6); Eosinophils % 5.7 %; Hematocrit 31.9 % (37.5-50.1); Lymphocytes # 1.2 K/mcL (0.6-4.6); Lymphocytes % 16.8 %; Mean Corpuscular HGB Conc 27.3 g/dL (31.6-35.5); Mean Corpuscular Hemoglobin 21.9 pg (28.0-33.3); Mean Corpuscular Volume 80.4 fL (83.0-100.0); Mean Platelet Volume 12.5 fL (9.4-12.4); Monocytes # 0.5 K/mcL (0.0-1.3); Monocytes % 6.4 %; Neutrophils # 5.1 K/mcL (1.6-8.9); Platelet Count 115 K/mcL (140-400); Red Blood Count 3.97 M/mcL (4.19-5.50); Segmented Neutrophils % 68.6 %
[2017-05-08 06:29] LABS: Albumin 3.4 g/dL (3.5-5.0); Albumin/Globulin Ratio 0.9 (1.1-2.2); Bilirubin,Total 0.3 mg/dL (0.2-1.2); Calcium 8.4 mg/dL (8.6-10.8); Globulin 3.8 g/dL (2.4-3.5); Potassium 5.1 mEq/L (3.5-4.5); Total Protein 7.2 g/dL (6.0-8.3)
[2017-05-08 06:42] LABS: Platelet Estimate Normal (Normal)
--- NOTE | 2017-05-08 08:00 | Nephrology Progress Note ---
Date of Encounter: 05/08/17 Time of Encounter: 07:59 - Assessment and Plan (1) Acute kidney failure, unspecified Current Visit: No Status: Acute The patient's renal function is improving. I am going to decrease the rate of his IV fluids. If his blood pressure continues to increase in weight may need to resume some of his outpatient antihypertensive medications. Qualifiers: Acute renal failure type: unspecified Qualified Code(s): N17.9 - Acute kidney failure, unspecified (2) Chronic kidney disease, stage III (moderate) Current Visit: Yes Status: Chronic Subjective Interval history: The patient is much more alert today. His renal function is improving. He says he has a good appetite. Urine output is 825 mL. Renal ultrasound was unremarkable. The patient states she has no difficulty emptying his bladder. Objective - Vital Signs Vital signs: Vital Signs Temp Pulse Resp BP Pulse Ox 05/08/17 07:54 98.4 F 66 20 166/81 94 05/08/17 04:12 97.6 F 71 16 168/83 96 05/08/17 00:48 97.4 F L 62 17 122/71 98 05/07/17 19:46 97.8 F 72 17 157/79 94 05/07/17 16:41 97.7 F 54 10 89/50 97 05/07/17 10:40 97.8 F 73 17 100/60 95 05/07/17 08:17 97.5 F L 67 17 144/70 96 Intake and Output 05/07/17 05/07/17 05/08/17 15:59 23:59 07:59 Intake Total 1000 / 1000 1000 / 1000 Output Total 375 / 375 600 / 600 Balance -375 / -375 1000 / 1000 400 / 400 Intake: IV Fluids 1000 / 1000 1000 / 1000 0.9 % Sodium Chloride 1, 1000 / 1000 1000 / 1000 000 ML @ 90 mls/hr IVC . Q11H7M [facility] Rx#:[id number] Output: Urine 375 / 375 600 / 600 Other: Weight 109.8 kg Blood Glucose* 212 156 212 Patient Weight 05/08/17 23:59 Weight 109.8 kg - General Appearance Exam: The patient is alert and oriented. He is in no acute distress. Lungs essentially clear to auscultation. Heart regular rate and rhythm. Abdomen is benign. Patient is status post left above-knee amputation. Right lower extremity shows some mild swelling and erythema. - Lab 05/08/17 06:01 05/08/17 06:01 Most recent lab results ABG pH 7.36 pH Units (7.32-7.45) 05/06/17 19:08 ABG pCO2 49 mmHg (35-45) H 05/06/17 19:08 ABG pO2 120 mmHg (85-104) H 05/06/17 19:08 ABG HCO3 27.7 mEQ/L (21-27) H 05/06/17 19:08 ABG O2 Saturation 99 % (95-98) H 05/06/17 19:08 Calcium 8.4 mg/dL (8.6-10.8) L 05/08/17 06:01 Consult Discharge Plan - Plan Referrals: Chandan Fitzgerald MD [Primary Care Provider] -
[2017-05-08] MEDS: Insulin LISPRO 300 UNITS/3 ML VIAL SQ SCH ×4 (08:26→21:37)
[2017-05-08] MEDS: Insulin DETEMIR 100 UNIT/ML X5UNITS SQ SCH ×2 (08:26→21:40)
[2017-05-08] MEDS: Loratadine 10 MG TABLET PO SCH (08:28)
[2017-05-08] MEDS: Famotidine 20 MG TABLET PO SCH (08:28)
[2017-05-08] MEDS: amLODIPine 5 MG TABLET PO SCH (08:29)
[2017-05-08] MEDS: Gabapentin 100 MG CAPSULE PO SCH ×2 (08:29→21:39)
[2017-05-08] MEDS: Aspirin 81 MG TAB.CHEW PO SCH (08:29)
[2017-05-08] MEDS: Neosporin OINT 15 GM TUBE TP SCH ×2 (08:32→21:40)
[2017-05-08] MEDS: (Mirabegron [Myrbetriq] 50 MG) PO SCH (08:32)
--- NOTE | 2017-05-08 14:13 | Pain Management Progress Note ---
Date of Encounter: 05/08/17 Time of Encounter: 14:11 - Assessment and Plan (1) Change in mental status Current Visit: Yes Status: Acute Neuro perspective reviewed. The longevity of the IDD therapy that the patient has been treated with makes it difficult to clearly agree that IDD caused acute MS change. Agree that worsening comorbids could play a role however. Will again reduce IDD rate/total daily dose by 30%. Will follow. Qualifiers: Altered mental status type: disorientation Qualified Code(s): R41.0 - Disorientation, unspecified Subjective Patient reports: no new complaints (Patient appears more awake, still confused. No overnight events noted.) Objective Vital Signs - Last 8 Hours Temp Pulse Resp BP Pulse Ox 05/08/17 10:58 98.6 F 67 16 125/68 97 05/08/17 07:54 98.4 F 66 20 166/81 94 Intake and Output 05/07/17 05/08/17 05/08/17 23:59 07:59 15:59 Intake Total 1000 / 1000 1000 / 1000 816 / 816 Output Total 600 / 600 875 / 875 Balance 1000 / 1000 400 / 400 -59 / -59 Intake: IV Fluids 1000 / 1000 1000 / 1000 0.9 % Sodium Chloride 1, 1000 / 1000 1000 / 1000 000 ML @ 90 mls/hr IVC . Q11H7M [facility] Rx#:[id number] Oral 816 / 816 Output: Urine 600 / 600 875 / 875 Other: Meal Lunch Percent of Meal Consumed 100% Weight 109.8 kg Blood Glucose* 156 212 125 Patient Weight 05/08/17 23:59 Weight 109.8 kg - General physical appearance no distress, no pain - Eyes normal ocular movement - Respiratory normal respiratory effort, clear to auscultation - Cardiovascular Cardiovascular exam: Present: RRR - Neurologic confused - Musculoskeletal other (noted left AKA) - Psychiatric other (Not oriented) - Labs 05/08/17 06:01 05/08/17 06:01 Diabetes panel 05/08/17 Range/Units 06:01 Sodium 141 (136-145) mEq/L Potassium 5.1 H (3.5-4.5) mEq/L Chloride 111 H (98-109) mEq/L Carbon Dioxide 24 (19-29) mEq/L BUN 49 H D (8-26) mg/dL Creatinine 1.84 H (0.72-1.25) mg/dL Glucose 230 H (70-99) mg/dL Calcium 8.4 L (8.6-10.8) mg/dL AST 27 (5-34) Units/L ALT 20 (0-55) Units/L Alkaline Phosphatase 88 (38-126) Units/L Albumin 3.4 L (3.5-5.0) g/dL Calcium panel 05/08/17 Range/Units 06:01 Calcium 8.4 L (8.6-10.8) mg/dL Albumin 3.4 L (3.5-5.0) g/dL Pituitary panel 05/08/17 Range/Units 06:01 Sodium 141 (136-145) mEq/L Potassium 5.1 H (3.5-4.5) mEq/L Chloride 111 H (98-109) mEq/L Carbon Dioxide 24 (19-29) mEq/L BUN 49 H D (8-26) mg/dL Creatinine 1.84 H (0.72-1.25) mg/dL Glucose 230 H (70-99) mg/dL Calcium 8.4 L (8.6-10.8) mg/dL Adrenal panel 05/08/17 Range/Units 06:01 Sodium 141 (136-145) mEq/L Potassium 5.1 H (3.5-4.5) mEq/L Chloride 111 H (98-109) mEq/L Carbon Dioxide 24 (19-29) mEq/L BUN 49 H D (8-26) mg/dL Creatinine 1.84 H (0.72-1.25) mg/dL Glucose 230 H (70-99) mg/dL Calcium 8.4 L (8.6-10.8) mg/dL Total Bilirubin 0.3 (0.2-1.2) mg/dL AST 27 (5-34) Units/L ALT 20 (0-55) Units/L Alkaline Phosphatase 88 (38-126) Units/L Albumin 3.4 L (3.5-5.0) g/dL Consult Discharge Plan - Plan Referrals: Chandan Fitzgerald MD [Primary Care Provider] - (web requested 05/09/2017)
--- NOTE | 2017-05-08 19:07 | Internal Med Progress Note ---
Date of Encounter: 05/08/17 Time of Encounter: 10:00 - Assessment and plan (1) Fall Current Visit: No Status: Acute Assessment and plan: Patient has a near syncope and a fall. No obvious injury identified. CT head negative. Pt/OT evaluation. Qualifiers: Qualified Code(s): W19.XXXA - Unspecified fall, initial encounter (2) Pre-syncope Current Visit: Yes Status: Acute Assessment and plan: Etiology is undetermined. Patient has history of diabetes, need to rule out orthostatic hypotension. - Continuous cardiac monitoring to rule out arrhythmia - Echocardiogram has been done, results unremarkable - Duplex carotid bilaterally shows Left ICA 40-59% stenosis - orthostatic vitals (3) Hypertension Current Visit: No Status: Chronic Assessment and plan: Will cont by mouth hydralazine 10 mg twice a day and Amlodipine 10 mg po daily, Hold ACEI/ARB due to THOMAS. closely monitor blood pressure. Qualifiers: Hypertension type: essential hypertension Qualified Code(s): I10 - Essential (primary) hypertension (4) Diabetes mellitus Current Visit: No Status: Chronic Assessment and plan: Will continue patient on a basal and sliding-scale insulin: Levemir 15 units BID , Medium sliding scale ACHS Qualifiers: Diabetes mellitus type: type 2 Diabetes mellitus complication status: with kidney complications Diabetes mellitus complication detail: with chronic kidney disease Diabetes mellitus buttermaker continuous churn insulin use: without buttermaker continuous churn use Chronic kidney disease stage: stage 3 (moderate) Qualified Code(s): E11.22 - Type 2 diabetes mellitus with diabetic chronic kidney disease; N18.3 - Chronic kidney disease, stage 3 (moderate) (5) H/O: CVA (cerebrovascular accident) Current Visit: No Status: Chronic Assessment and plan: Continue antiplatelet for secondary prevention (6) Obesity (BMI 30-39.9) Current Visit: No Status: Chronic Assessment and plan: The lifestyle modifications (7) Bnzod-oa-wrynteu kidney injury Current Visit: No Status: Acute Assessment and plan: Mild elevated creatinine level from baseline. Encourage patient hydrated himself , avoid dehydration. Avoid the nephrotoxic medication. Cont IVF. Follow-up renal function. Nephrology consult appreciated, renal US shows no obstruction. Qualifiers: Chronic kidney disease stage: stage 3 (moderate) Qualified Code(s): N17.9 - Acute kidney failure, unspecified; N18.3 - Chronic kidney disease, stage 3 ( moderate) (8) Acute encephalopathy Current Visit: Yes Status: Acute Assessment and plan: Etiology is undetermined. Patient is on pain pump with intrathecal Dilaudid and baclofen, he is also on multiple medications has sedative effect. Not sure if he takes extra pain medication since he didn't follow up with pain management recently. - Head CT negative - ABG excluded CO2 retention, PCO2 49 - Patient has no hypoglycemia episodes identified, although closely glucose monitoring applied. - Pain management consult appreciated, pain pump has been reduced the rate. - Negative urine toxicity screen. - Reduce gabapentin dose. Discontinue by mouth baclofen. - Continue closely monitor patient, aspiration precaution, fall precaution. - Symptoms improved, mental status at his baseline now. (9) Carotid stenosis Current Visit: Yes Status: Acute Assessment and plan: Aggressive medical treatment, add Plavix. Follow-up as outpatient in 12 months. Qualifiers: Laterality: left Qualified Code(s): I65.22 - Occlusion and stenosis of left carotid artery - Time Spent With Patient 25 - 35 minutes - Subjective Interval history: Patient is a 71-year-old male admitted for near syncope. His past medical history is significant for diabetes, hypertension, see daily, history of CVA Patient was seen and examined. Pt is more awake, alert now. C/o left phantom limb pain. Vitals stable. Improved renal function. - Constitutional Vitals: Temp Pulse Resp BP Pulse Ox 98.1 F 69 13 147/81 96 05/08/17 16:05 05/08/17 16:05 05/08/17 16:05 05/08/17 16:05 05/08/17 16:05 General appearance: Present: cooperative, A&O X 3, no acute distress, obese, answers questions appropriately - Head Head exam: Present: atraumatic, normocephalic - Eye Eye exam: Present: PERRL, conjuntiva pink, sclera anicteric Pupils: Present: PERRL - Neck Neck exam general surgery: Present: supple, trachea midline. Absent: lymphadenopathy - Respiratory Respiratory exam: Present: CTAB. Absent: accessory muscle use, rales, rhonchi, wheezes - Cardiovascular Cardiovascular exam: Present: RRR, +S1, +S2. Absent: diastolic murmur, gallop, rubs, systolic murmur - GI/Abdominal GI/Abdominal exam: Present: normal bowel sounds, soft, no peritoneal signs. Absent: distended, tenderness - Extremities Exam Extremities exam: Present: warm, radial pulses palpable and symetrical. Absent : calf tenderness, cyanotic, pedal edema Additional comments: Left AKA - Neurological Exam Neurological exam: Present: CN II-XII intact, oriented X3, no focal deficits. Absent: pronater drift, facial droop, speech deficit - Skin Skin exam: Present: dry, intact Internal Medicine: Result - Labs CBC & Chem 7: 05/08/17 06:01 05/08/17 06:01 Labs: Short CBC 05/08/17 Range/Units 06:01 WBC 7.4 (4.3-11.1) K/mcL Hgb 8.7 L (12.9-16.9) g/dL Hct 31.9 L (37.5-50.1) % Plt Count 115 L (140-400) K/mcL Neutrophils # 5.1 (1.6-8.9) K/mcL BMP 05/08/17 06:01 Sodium 141 Potassium 5.1 H Chloride 111 H Carbon Dioxide 24 BUN 49 H D Creatinine 1.84 H Glucose 230 H Calcium 8.4 L Liver Function 05/08/17 Range/Units 06:01 Total Bilirubin 0.3 (0.2-1.2) mg/dL AST 27 (5-34) Units/L ALT 20 (0-55) Units/L Alkaline Phosphatase 88 (38-126) Units/L Albumin 3.4 L (3.5-5.0) g/dL Urine 05/08/17 Range/Units 00:31 Urine Color Yellow (Yellow) Urine Clarity Clear (Clear) Urine pH 5.5 (5.0-8.0) pH Units Ur Specific [place] 1.017 (1.010-1.025) Urine Protein Negative (Neg-Trace) mg/dL Urine Glucose (UA) Normal (Normal) mg/dL - ABG Interpretation ABG results: ABG ABG pH 7.36 pH Units (7.32-7.45) 05/06/17 19:08 ABG pCO2 49 mmHg (35-45) H 05/06/17 19:08 ABG pO2 120 mmHg (85-104) H 05/06/17 19:08 ABG O2 Saturation 99 % (95-98) H 05/06/17 19:08 Consult Discharge Plan - Plan Referrals: Chandan Fitzgerald MD [Primary Care Provider] - (web requested 05/09/2017)
[2017-05-08] MEDS ORDERED: hydrALAZINE 10 MG TABLET PO SCH (21:00)
[2017-05-08] MEDS: Acetaminophen 325 MG TABLET PO PRN (23:59)
[2017-05-09] MEDS: *HR* Heparin 5,000 UNIT/ML VIAL SQ SCH (06:09)
[2017-05-09] MEDS: Insulin LISPRO 300 UNITS/3 ML VIAL SQ SCH ×2 (07:46→11:50)
[2017-05-09] MEDS ORDERED: hydrALAZINE 10 MG TABLET PO SCH (07:49)
[2017-05-09 08:26] LABS: Lymphocytes % 19.6 %; Red Cell Distribution Width 19.5 % (11.5-14.5)
[2017-05-09 08:28] LABS: Basophils # 0.1 K/mcL (0.0-0.2); Basophils % 0.7 %; Eosinophils # 0.4 K/mcL (0.0-0.6); Eosinophils % 5.3 %; Hematocrit 29.5 % (37.5-50.1); Hemoglobin 8.2 g/dL (12.9-16.9); Immature Granulocytes % 2.6 % (0-4); Lymphocytes # 1.4 K/mcL (0.6-4.6); Mean Corpuscular HGB Conc 27.8 g/dL (31.6-35.5); Mean Corpuscular Hemoglobin 21.8 pg (28.0-33.3); Mean Corpuscular Volume 78.2 fL (83.0-100.0); Mean Platelet Volume 11.9 fL (9.4-12.4); Monocytes # 0.5 K/mcL (0.0-1.3); Monocytes % 7.5 %; Nucleated Red Blood Cells 0.3 /100 WBC (0); Platelet Count 120 K/mcL (140-400); Red Blood Count 3.77 M/mcL (4.19-5.50); Segmented Neutrophils % 64.3 %
[2017-05-09 08:30] LABS: Neutrophils # 4.4 K/mcL (1.6-8.9)
[2017-05-09 08:35] LABS: Alanine Aminotransferase 16 Units/L (0-55); Albumin 3.2 g/dL (3.5-5.0); Albumin/Globulin Ratio 0.9 (1.1-2.2); Alkaline Phosphatase 84 Units/L (38-126); Aspartate Amino Transferase 26 Units/L (5-34); BUN/Creatinine Ratio 24 (6-26); Bilirubin,Total 0.4 mg/dL (0.2-1.2); Calcium 8.8 mg/dL (8.6-10.8); Carbon Dioxide 24 mEq/L (19-29); Chloride 109 mEq/L (98-109); Globulin 3.4 g/dL (2.4-3.5); Glucose 117 mg/dL (70-99); Osmolality,Calculated 296 (280-300); Potassium 4.7 mEq/L (3.5-4.5); Sodium 140 mEq/L (136-145); Total Protein 6.6 g/dL (6.0-8.3); eGFR For African Americans > 60 (> 60); eGFR For Non-African Americans > 60 (> 60)
[2017-05-09 08:43] LABS: Blood Urea Nitrogen 27 mg/dL (8-26)
[2017-05-09] MEDS: Insulin DETEMIR 100 UNIT/ML X5UNITS SQ SCH (08:46)
[2017-05-09] MEDS: Neosporin OINT 15 GM TUBE TP SCH (08:46)
[2017-05-09] MEDS: Aspirin 81 MG TAB.CHEW PO SCH (08:47)
[2017-05-09] MEDS: Gabapentin 100 MG CAPSULE PO SCH (08:47)
[2017-05-09] MEDS: Loratadine 10 MG TABLET PO SCH (08:47)
[2017-05-09] MEDS: amLODIPine 5 MG TABLET PO SCH (08:47)
[2017-05-09] MEDS: Famotidine 20 MG TABLET PO SCH (08:47)
[2017-05-09 09:09] LABS: Anisocytosis 1+ (Not Present); Hypochromasia Present (Not Present); Platelet Estimate Slight Decrease (Normal)
[2017-05-09 11:27] VITALS: BP 166/77
[2017-05-09] MEDS: Acetaminophen 325 MG TABLET PO PRN (11:50)
--- NOTE | 2017-05-09 12:31 | Pain Management Progress Note ---
Date of Encounter: 05/09/17 Time of Encounter: 12:29 - Assessment and Plan (1) Change in mental status Current Visit: Yes Status: Resolved Patient much better today. Patient is at baseline as far as I know him. I will maintain current IDD regimen. Will see as an outpatient. Will sign off. Qualifiers: Altered mental status type: disorientation Qualified Code(s): R41.0 - Disorientation, unspecified Subjective Patient reports: no new complaints, feels better Objective Vital Signs - Last 8 Hours Temp Pulse Resp BP Pulse Ox 05/09/17 11:23 98.8 F 71 14 166/77 94 05/09/17 07:26 98.9 F 74 17 181/82 91 Intake and Output 05/08/17 05/09/17 05/09/17 23:59 07:59 15:59 Intake Total 1440 / 1440 Output Total 600 / 600 625 / 625 400 / 400 Balance 840 / 840 -625 / -625 -400 / -400 Intake: IV Fluids 1000 / 1000 0.9 % Sodium Chloride 1, 1000 / 1000 000 ML @ 50 mls/hr IVC . Q20H [facility] Rx#:[id number] Oral 440 / 440 Output: Urine 600 / 600 625 / 625 400 / 400 Other: Meal Dinner Breakfast Percent of Meal Consumed 100% 85% Stool Size Small Stool Consistency soft formed Stool Characteristics Normal for Patient Stool Color Brown # Voids 1 # Bowel Movements 1 Weight 110 kg Blood Glucose* 181 118 190 Patient Weight 05/09/17 23:59 Weight 110 kg - General physical appearance well developed, well nourished, no distress - Eyes normal ocular movement - Cardiovascular Cardiovascular exam: Present: no murmurs/rubs/gallops - Neurologic other (Oriented x3) - Psychiatric oriented to time, oriented to person, oriented to place, speech is normal, memory intact - Labs 05/09/17 08:00 05/09/17 08:00 Diabetes panel 05/09/17 Range/Units 08:00 Sodium 140 (136-145) mEq/L Potassium 4.7 H (3.5-4.5) mEq/L Chloride 109 (98-109) mEq/L Carbon Dioxide 24 (19-29) mEq/L BUN 27 H D (8-26) mg/dL Creatinine 1.12 (0.72-1.25) mg/dL Glucose 117 H (70-99) mg/dL Calcium 8.8 (8.6-10.8) mg/dL AST 26 (5-34) Units/L ALT 16 (0-55) Units/L Alkaline Phosphatase 84 (38-126) Units/L Albumin 3.2 L (3.5-5.0) g/dL Calcium panel 05/09/17 Range/Units 08:00 Calcium 8.8 (8.6-10.8) mg/dL Albumin 3.2 L (3.5-5.0) g/dL Pituitary panel 05/09/17 Range/Units 08:00 Sodium 140 (136-145) mEq/L Potassium 4.7 H (3.5-4.5) mEq/L Chloride 109 (98-109) mEq/L Carbon Dioxide 24 (19-29) mEq/L BUN 27 H D (8-26) mg/dL Creatinine 1.12 (0.72-1.25) mg/dL Glucose 117 H (70-99) mg/dL Calcium 8.8 (8.6-10.8) mg/dL Adrenal panel 05/09/17 Range/Units 08:00 Sodium 140 (136-145) mEq/L Potassium 4.7 H (3.5-4.5) mEq/L Chloride 109 (98-109) mEq/L Carbon Dioxide 24 (19-29) mEq/L BUN 27 H D (8-26) mg/dL Creatinine 1.12 (0.72-1.25) mg/dL Glucose 117 H (70-99) mg/dL Calcium 8.8 (8.6-10.8) mg/dL Total Bilirubin 0.4 (0.2-1.2) mg/dL AST 26 (5-34) Units/L ALT 16 (0-55) Units/L Alkaline Phosphatase 84 (38-126) Units/L Albumin 3.2 L (3.5-5.0) g/dL Consult Discharge Plan - Plan Referrals: Chandan Fitzgerald MD [Primary Care Provider] - (web requested 05/09/2017)
--- NOTE | 2017-05-09 13:43 | Nephrology Progress Note ---
Date of Encounter: 05/09/17 Time of Encounter: 13:20 - Assessment and Plan (1) THOMAS (acute kidney injury) Current Visit: Yes Status: Acute THOMAS/CKD in setting of hypotension. Creat improved 1.12. will stop IV fluids. Will restart Losartan for elevated BP. Will sign off and follow in office. Subjective Interval history: Laying in bed, states experiencing left stump pain. Objective - Vital Signs Vital signs: Vital Signs Temp Pulse Resp BP Pulse Ox 05/09/17 11:23 98.8 F 71 14 166/77 94 05/09/17 07:26 98.9 F 74 17 181/82 91 05/09/17 03:48 98.4 F 65 16 133/63 95 05/08/17 23:25 98.0 F 63 16 134/73 05/08/17 19:20 97.9 F 67 17 134/70 96 05/08/17 16:05 98.1 F 69 13 147/81 96 Intake and Output 05/08/17 05/09/17 05/09/17 23:59 07:59 15:59 Intake Total 1440 / 1440 Output Total 600 / 600 625 / 625 400 / 400 Balance 840 / 840 -625 / -625 -400 / -400 Intake: IV Fluids 1000 / 1000 0.9 % Sodium Chloride 1, 1000 / 1000 000 ML @ 50 mls/hr IVC . Q20H MARTINEZ Rx#:[id number] Oral 440 / 440 Output: Urine 600 / 600 625 / 625 400 / 400 Other: Meal Dinner Breakfast Percent of Meal Consumed 100% 85% Stool Size Small Stool Consistency soft formed Stool Characteristics Normal for Patient Stool Color Brown # Voids 1 # Bowel Movements 1 Weight 110 kg Blood Glucose* 181 118 190 Patient Weight 05/09/17 23:59 Weight 110 kg - General Appearance General appearance: Present: well-developed, well-nourished, appears started age , obese EENT: Present: mucous membranes moist Neck: Present: no JVD Respiratory: Present: clear Cardiology: Present: edema, regular rate, regular rhythm Additional Comments: mild pitting edema RLE, left BKA Gastrointestinal: Present: normoactive bowel sounds, no tenderness Integumentary: Present: warm and dry Neurologic: Present: alert and oriented x3 Psychiatric: Present: mood/affect appropriate, cooperative - Lab 05/09/17 08:00 05/09/17 08:00 Most recent lab results ABG pH 7.36 pH Units (7.32-7.45) 05/06/17 19:08 ABG pCO2 49 mmHg (35-45) H 05/06/17 19:08 ABG pO2 120 mmHg (85-104) H 05/06/17 19:08 ABG HCO3 27.7 mEQ/L (21-27) H 05/06/17 19:08 ABG O2 Saturation 99 % (95-98) H 05/06/17 19:08 Calcium 8.8 mg/dL (8.6-10.8) 05/09/17 08:00 Consult Discharge Plan - Plan Referrals: Chandan Fitzgerald MD [Primary Care Provider] - (web requested 05/09/2017)
--- NOTE | 2017-05-09 14:29 | Discharge Summary ---
Date of Encounter: 05/09/17 Time of Encounter: 12:00 - Discharge Diagnosis (1) Fall Priority: Primary Status: Acute Qualifiers: Qualified Code(s): W19.XXXA - Unspecified fall, initial encounter (2) Pre-syncope Priority: Primary Status: Acute (3) Hypertension Priority: Secondary Status: Chronic Qualifiers: Hypertension type: essential hypertension Qualified Code(s): I10 - Essential (primary) hypertension (4) Diabetes mellitus Priority: Secondary Status: Chronic Qualifiers: Diabetes mellitus type: type 2 Diabetes mellitus complication status: with kidney complications Diabetes mellitus complication detail: with chronic kidney disease Diabetes mellitus snf insulin use: without medical terminologist use Chronic kidney disease stage: stage 3 (moderate) Qualified Code(s): E11.22 - Type 2 diabetes mellitus with diabetic chronic kidney disease; N18.3 - Chronic kidney disease, stage 3 (moderate) (5) H/O: CVA (cerebrovascular accident) Priority: Secondary Status: Chronic (6) Obesity (BMI 30-39.9) Priority: Secondary Status: Chronic (7) [id number] kidney injury Priority: Primary Status: Acute Qualifiers: Chronic kidney disease stage: stage 3 (moderate) Qualified Code(s): N17.9 - Acute kidney failure, unspecified; N18.3 - Chronic kidney disease, stage 3 ( moderate) (8) Acute encephalopathy Priority: Primary Status: Acute (9) Carotid stenosis Priority: Primary Status: Acute Qualifiers: Laterality: left Qualified Code(s): I65.22 - Occlusion and stenosis of left carotid artery - Discharge Medications Prescriptions: Clopidogrel [Plavix] 75 mg PO DAILY #30 tablet Oxycodone HCl/Acetaminophen [Percocet 5-325 mg Tablet] 1 tab PO Q6H PRN #6 tablet PRN Reason: Pain Home Medications: Atorvastatin [Lipitor] 40 mg PO HS 08/05/15 [History] DULoxetine [Cymbalta] 60 mg PO DAILY 08/05/15 [History] Docusate [Colace] 200 mg PO BID 08/05/15 [History] Donepezil [Aricept] 10 mg PO HS 08/05/15 [History] Lactulose 20 gm PO BID 08/05/15 [History] Levothyroxine [Synthroid] 175 mcg PO DAILY 08/05/15 [History] Aspirin 81 mg PO DAILY 03/18/16 [History] Metoprolol Tartrate [Lopressor] 50 mg PO BID 03/18/16 [History] Furosemide [Lasix] 40 mg PO DAILY 07/30/16 [History] Mirabegron [Myrbetriq] 50 mg PO DAILY 07/30/16 [History] Fluticasone Propionate Nasal [Flonase] 50 mcg NS DAILY PRN 10/23/16 [History] Lidocaine Patch [Lidoderm 5% patch] 1 patch TP DAILY 10/23/16 [History] Loratadine [Allergy Relief] 10 mg PO DAILY 10/23/16 [History] Ranitidine HCl [Zantac] 150 mg PO BID 10/23/16 [History] Amlodipine Besylate 10 mg PO DAILY 12/04/16 [History] Cyclobenzaprine [Flexeril] 5 mg PO TID PRN 12/04/16 [History] hydrALAZINE [HydrALAZINE] 10 mg PO BID #60 tablet 12/07/16 [Rx] Famotidine [Pepcid] 20 mg PO BID 04/08/17 [History] Losartan Potassium [Cozaar] 100 mg PO DAILY 04/08/17 [History] Ferrous Sulfate 325 mg PO BIDWM #30 tablet 04/19/17 [Rx] Clopidogrel [Plavix] 75 mg PO DAILY #30 tablet 05/09/17 [Rx] Gabapentin [Neurontin] 200 mg PO BID #60 05/09/17 [Rx] Insulin NPH Human Isophane [Novolin N] 25 unit SQ BIDWM #0 05/09/17 [Rx] Insulin Regular, Human [Novolin R] 0 - 15 unit SQ TIDWM #0 05/09/17 [Rx] Oxycodone HCl/Acetaminophen [Percocet 5-325 mg Tablet] 1 tab PO Q6H PRN #6 tablet 05/09/17 [Rx] Allergies/Adverse Reactions: Allergies adhesive tape Allergy (Verified 12/27/16 11:58) Hives pregabalin [From Lyrica] Allergy (Verified 12/27/16 11:58) Swelling of Lip/Tongue/Throat Sulfa (Sulfonamide Antibiotics) Allergy (Verified 12/27/16 11:58) PER PT UNKNOWN REACTION Procedures/tests Complete & Pending: Procedures Performed prior 72 hours Category Date Time Status Head CT without Contrast [CT head/brain wo con] [CT] Cat Scan 05/06/17 18:56 Completed Stat Retroperitoneal Ultrasound - Complete [US Exams 05/07/17 15:00 Completed retroperitoneal comp] [US] Routine - Notes to Outpatient Provider 1. Patient's home medication for diabetes is NPH insulin 65 units subcutaneous twice a day, however, he uses only 15 units of Levemir twice a day in hospital and his glucose level is stable. Will recommend decrease his NPH insulin dose to 25 units twice a day, plus sliding scale with 3 meals. Please closely follow -up his glucose level and hemoglobin A1c. 2. His baclofen by mouth has been discontinued, his by mouth gabapentin dose has been decreased to 200mg po BID. 3. Patient's pain pump infusion rate has been decreased for 30% by pain management team, please follow-up with the pain management as outpatient. 4. Patient was found left carotid stenosis 40-59%, Plavix 75 mg by mouth daily added, please repeat the imaging in 12 months. Date of admission: 05/06/17 10:30 Primary care physician: Chandan Fitzgerald MD Consults: 05/06/17 15:00 Consult to Occupational Therapy [CONS] Routine Comment: Evaluate, develop and implement POC Reason for Consult: Fall, Hx of CVA Consult to Physical Therapy [CONS] Routine Comment: Evaluate, develop and implement POC Reason for Consult: Fall, Hx of CVA 05/06/17 20:29 Consult to Pain Management [CONS] Routine Consulting Provider: Pain Mgt [facility] Reason for Consult: Pain pump interrogation Call Completed: Yes 05/07/17 08:13 Consult to Nephrology [CONS] Routine Consulting Provider: [facility] HTN [facility] Reason for Consult: THOMAS on CKD, not improve on IVF Call Completed: No 05/07/17 08:36 Consult to Neurology [CONS] Routine Consulting Provider: [facility] Reason for Consult: Syncope, AMS Call Completed: Yes 05/08/17 10:05 Consult to Underwriting Support Specialist [CONS] Routine Reason for SW Consult: Placement Discharging clinician: Noble Catalan Anticipated date of discharge: 05/09/17 - Patient Status Disposition: Transfer SNF Condition: Fair Functional capacity at discharge: uses cane/walker Overall status at discharge: patient is back to baseline - Discharge Instructions Follow Up With: Chandan Fitzgerald MD [Primary Care Provider] - (web requested 05/09/2017) - Diet and Activity Activity: as per physical therapy Diet: diabetic diet, low fat, low cholesterol, low salt diet Interval History: Mr. Borges is a 71 year old male patient with a history of diabetes, hypertension, chronic kidney disease, CVA presented to the ER after an episode of fall while he was walking that came on without any prodromal symptoms. Patient did not pass out but felt like he was going to pass out. He says he had one similar episode in the past he was admitted here earlier this month for cellulitis involving his right lower extremity and was treated with IV antibiotics. He was discharged home on Bactrim. He has completed antibiotic course. He denies any fever chills or night sweats. Denies any nausea or vomiting. No hematuria or dysuria. He has not noticed any decrease in his urine output. No significant lower extremity swelling Hospital course: Mr. Borges is a 71 year old male was admitted for near syncope and fall. Patient was placed on continuous cardiac monitoring, echo and duplex of carotid has been ordered. Patient has no significant arrhythmia during hospitalization. Echo results unremarkable. Duplex carotid shows left ICA 40- 59% stenosis, recommend aggressive medical management and follow-up in 12 months. During hospitalization, patient developed acute confusion, CT head negative. Pain management consult was called, patient's pain pump infusion rate has been decreased for 30%. Patient's po baclofen has been discontinued and his gabapentin has been decreased the dose. Patient also presented with THOMAS upon admission, which improved after IV fluid. Today's creatinine level is 1.12, which is about his baseline. After treatment, patient mental status has resumed to his baseline. His vitals are stable, plan to discharge him to ECF for PT OT recommendation. Patient was seen and examined today. He is awake alert, oriented 3. Vitals are stable. Patient is stable to transfer to [facility] for further rehabilitation. - Time Spent with Patient Total time spent providing and/or coordinating discharge services: 40 min Greater than 30 minutes - Constitutional Vitals: Temp Pulse Resp BP Pulse Ox 98.8 F 71 14 166/77 94 05/09/17 11:23 05/09/17 11:23 05/09/17 11:23 05/09/17 11:23 05/09/17 11:23 General appearance: Present: cooperative, A&O X 3, no acute distress, obese, answers questions appropriately - Head Head exam: Present: atraumatic, normocephalic - Eye Eye exam: Present: PERRL, conjuntiva pink, sclera anicteric Pupils: Present: PERRL - Neck Neck exam general surgery: Present: supple, trachea midline. Absent: lymphadenopathy - Respiratory Respiratory exam: Present: CTAB. Absent: accessory muscle use, rales, rhonchi, wheezes - Cardiovascular Cardiovascular exam: Present: RRR, +S1, +S2. Absent: diastolic murmur, gallop, rubs, systolic murmur - GI/Abdominal GI/Abdominal exam: Present: normal bowel sounds, soft, no peritoneal signs. Absent: distended, tenderness - Extremities Exam Extremities exam: Present: warm, radial pulses palpable and symetrical. Absent : calf tenderness, cyanotic, pedal edema Additional comments: Left s/p AKA - Neurological Exam Neurological exam: Present: CN II-XII intact, oriented X3, no focal deficits. Absent: pronater drift, facial droop, speech deficit - Skin Skin exam: Present: dry, intact
--- NOTE | 2017-05-09 14:46 | Physician Discharge Referral ---
ExtendedCare Referral Info Transfer To: [facility] Provider in Charge after Transfer: Other - Diagnosis (1) Fall Status: Acute (2) Pre-syncope Status: Acute (3) Hypertension Status: Chronic (4) Diabetes mellitus Status: Chronic (5) H/O: CVA (cerebrovascular accident) Status: Chronic (6) Obesity (BMI 30-39.9) Status: Chronic (7) [id number] kidney injury Status: Acute (8) Acute encephalopathy Status: Acute (9) Carotid stenosis Status: Acute - Transfer Medications Prescriptions: Clopidogrel [Plavix] 75 mg PO DAILY #30 tablet Oxycodone HCl/Acetaminophen [Percocet 5-325 mg Tablet] 1 tab PO Q6H PRN #6 tablet PRN Reason: Pain Home Medications: Atorvastatin [Lipitor] 40 mg PO HS 08/05/15 [History] DULoxetine [Cymbalta] 60 mg PO DAILY 08/05/15 [History] Docusate [Colace] 200 mg PO BID 08/05/15 [History] Donepezil [Aricept] 10 mg PO HS 08/05/15 [History] Lactulose 20 gm PO BID 08/05/15 [History] Levothyroxine [Synthroid] 175 mcg PO DAILY 08/05/15 [History] Aspirin 81 mg PO DAILY 03/18/16 [History] Metoprolol Tartrate [Lopressor] 50 mg PO BID 03/18/16 [History] Furosemide [Lasix] 40 mg PO DAILY 07/30/16 [History] Mirabegron [Myrbetriq] 50 mg PO DAILY 07/30/16 [History] Fluticasone Propionate Nasal [Flonase] 50 mcg NS DAILY PRN 10/23/16 [History] Lidocaine Patch [Lidoderm 5% patch] 1 patch TP DAILY 10/23/16 [History] Loratadine [Allergy Relief] 10 mg PO DAILY 10/23/16 [History] Ranitidine HCl [Zantac] 150 mg PO BID 10/23/16 [History] Amlodipine Besylate 10 mg PO DAILY 12/04/16 [History] Cyclobenzaprine [Flexeril] 5 mg PO TID PRN 12/04/16 [History] hydrALAZINE [HydrALAZINE] 10 mg PO BID #60 tablet 12/07/16 [Rx] Famotidine [Pepcid] 20 mg PO BID 04/08/17 [History] Losartan Potassium [Cozaar] 100 mg PO DAILY 04/08/17 [History] Ferrous Sulfate 325 mg PO BIDWM #30 tablet 04/19/17 [Rx] Clopidogrel [Plavix] 75 mg PO DAILY #30 tablet 05/09/17 [Rx] Gabapentin [Neurontin] 200 mg PO BID #60 05/09/17 [Rx] Insulin NPH Human Isophane [Novolin N] 25 unit SQ BIDWM #0 05/09/17 [Rx] Insulin Regular, Human [Novolin R] 0 - 15 unit SQ TIDWM #0 05/09/17 [Rx] Oxycodone HCl/Acetaminophen [Percocet 5-325 mg Tablet] 1 tab PO Q6H PRN #6 tablet 05/09/17 [Rx] Allergies/Adverse Reactions: Allergies adhesive tape Allergy (Verified 12/27/16 11:58) Hives pregabalin [From Lyrica] Allergy (Verified 12/27/16 11:58) Swelling of Lip/Tongue/Throat Sulfa (Sulfonamide Antibiotics) Allergy (Verified 12/27/16 11:58) PER PT UNKNOWN REACTION - Respiratory Orders Smoking Cessation: Smoking cessation has been advised. For more information, call the [place] Tobacco Quit Line at 5-837-VPQANOW. - Advance Directives Code Status: Full Code - Rehabiliation Orders Rehab Orders: Evaluation for Physical Therapy, Evaluation for Occupational Therapy - Diet Orders No Concentrated Sweets, Cardiac CERTIFICATION: I certify that the transfer of the above named patient to an Extended Care Facility is necessary for the continuing treatment of the diagnosis listed. The above information is true and accurate reflection of patient's current condition. Confidential - Redisclosure prohibited without a patient's written consent.
== END 2017-05-09 16:06 | DRG 682 ==
LOC: 2ANU 03:31 → EMEROO 03:31 → 2ANU 08:12
PROVIDERS: ADMIT Registered Nurse; ATTEND Internal Medicine

== ENCOUNTER 2017-08-30 13:26 | Observation (INO) ==
--- NOTE | 2017-08-30 14:19 | Emergency Department Note ---
START Narrative - START START: I examined this patient and my medical decision-making was reviewed with the BOBBIN COIL WINDER/PA/Advanced Practice Nurse/Resident Physician. I agree with the documented findings, disposition and treatment plan as described except to the extent set forth below. I did see the patient immediately upon arrival and also spoke with the paramedics. Patient did have a fall and was on the ground for about one hour and he then had 15 discrete episodes where he became unconscious on the way here and when I saw the patient is bright and alert and well appearance. Labs, EKG are ordered. I did review his EKG showing normal sinus rhythm with a rate of 62 without acute ischemic change. There is no evidence for prolonged QT segment, hypertrophic cardiomyopathy, WPW or Brugada syndrome. Patient will be observed closely on the monitor here. [id number]
--- NOTE | 2017-08-30 15:16 | Emergency Department Note ---
Disposition Clinical Impression: Altered level of consciousness, Hypersomnolence Fall Qualifiers: Encounter type: initial encounter Qualified Code(s): W19.XXXA - Unspecified fall, initial encounter Disposition: Admitted As Inpatient Condition: Good Time of Disposition: 18:12 General Adult HPI - General Chief complaint: ED Syncope Stated complaint: syncope Time Seen by Provider: 08/30/17 13:40 Source: patient, EMS Mode of arrival: EMS Limitations: altered mental status Nursing Notes Reviewed: Yes Vital Signs Reviewed: Yes - History of Present Illness HPI Narrative: 71-year-old male found down in his apartment by neighbor who contacted EMS for concern of syncopal episode. Patient about an hour before EMS arrived to his apartment, he was sweeping his kitchen floor when he sustained a mechanical forward fall from his wheelchair; he denies any head trauma or loss of consciousness at that time. He was unable to get himself up and remained on the floor. Neighbors entered his apartment due to smell of burning; patient had been cooking corn on the stove which he was unable to turn off. On route, per EMS, patient had several stated episodes of syncope, rousing almost immediately. Otherwise, patient stable on route per EMS. Patient denies any acute pain or any other symptoms including fever, chills, sweats, headache, vision change, focal weakness/numbness, focal sensory deficit , confusion, chest pain, palpitations, general fatigue, shortness of air, nausea , vomiting, or diaphoresis. Patient does have chronic pain due to LLE amputation for which he has previously taken percocet, which his primary care provider has since ceased. Patient is currently not on any opioid analgesics. Patient denies any acute substance ingestion including unprescribed opioids, alcohol, or other illicit substances. Pain Scale: 7 - Related Data Home Medications Medication Instructions Recorded Confirmed DULoxetine [Cymbalta] 60 mg PO DAILY 08/05/15 08/30/17 Docusate [Colace] 200 mg PO BID PRN 08/05/15 08/30/17 Donepezil [Aricept] 10 mg PO HS 08/05/15 08/30/17 Lactulose 10 gm PO DAILY PRN 08/05/15 08/30/17 Aspirin 81 mg PO DAILY 03/18/16 08/30/17 Metoprolol Tartrate [Lopressor] 50 mg PO BID 03/18/16 08/30/17 Furosemide [Lasix] 40 mg PO DAILY 07/30/16 08/30/17 Mirabegron [Myrbetriq] 50 mg PO DAILY 07/30/16 08/30/17 Fluticasone Propionate Nasal 50 mcg NS DAILY PRN 10/23/16 08/30/17 [Flonase] Loratadine [Allergy Relief] 10 mg PO DAILY 10/23/16 08/30/17 Ranitidine HCl [Zantac] 150 mg PO BID 10/23/16 08/30/17 Amlodipine Besylate 10 mg PO DAILY 12/04/16 08/30/17 Cyclobenzaprine [Flexeril] 5 mg PO TID PRN 12/04/16 08/30/17 Famotidine [Pepcid] 20 mg PO BID 04/08/17 08/30/17 Atorvastatin [Lipitor] 40 mg PO HS 06/21/17 08/30/17 Clopidogrel [Plavix] 75 mg PO DAILY 06/21/17 08/30/17 Gabapentin [Neurontin] 100 mg PO BID 06/21/17 08/30/17 Levothyroxine [Synthroid] 175 mcg PO QAM 06/21/17 08/30/17 Lidocaine Patch [Lidoderm 5% patch] 1 each TP DAILY 06/21/17 08/30/17 Losartan Potassium [Cozaar] 100 mg PO DAILY 06/21/17 08/30/17 Baclofen [Lioresal] 10 mg PO TID 08/30/17 08/30/17 Insulin NPH Human Isophane 65 unit SQ BIDWM 08/30/17 08/30/17 [Novolin N] Insulin Regular, Human [Novolin R] 10 unit SQ TIDWM 08/30/17 08/30/17 Previous Rx's Medication Instructions Recorded hydrALAZINE [HydrALAZINE] 10 mg PO BID #60 tablet 12/07/16 Ferrous Sulfate 325 mg PO BIDWM #30 tablet 04/19/17 Allergies Allergy/AdvReac Type Severity Reaction Status Date / Time adhesive tape Allergy Hives Verified 12/27/16 11:58 pregabalin [From Lyrica] Allergy Swelling Verified 12/27/16 11:58 of Lip/Tongue/Throat Sulfa (Sulfonamide Allergy PER PT Verified 12/27/16 11:58 Antibiotics) UNKNOWN REACTION All systems ED: reviewed and negative except as stated. Review of Systems: As Per HPI Past Medical History - Past Medical History Attestation: Yes The following information was validated with the patient. Medical history: Reports: diabetes, renal disease, hypertension, other, CVA, thyroid disease, cancer, syncope Surgical history: Reports: orthopedic, other, thyroidectomy, other, appendectomy Psychiatric history: Reports: no psych history, anxiety, depression - Social History Smoking Status: Never smoker Smokeless Tobacco Status: No Alcohol use: Reports: none Drug use: Reports: none Physical Exam - General General appearance: alert, lethargic - Head Head exam: atraumatic, normal inspection - Eye Eye exam: Present: PERRL, EOMI. Absent: scleral icterus, conjunctival injection , nystagmus, miosis, mydriasis - ENT ENT exam: mucous membranes dry - Neck Neck exam: Absent: meningismus - Respiratory Respiratory exam: Present: normal lung sounds bilaterally. Absent: respiratory distress, wheezes, accessory muscle use, prolonged expiratory phase - Cardiovascular Cardiovascular exam: Present: regular rate, normal rhythm, normal heart sounds. Absent: systolic murmur, diastolic murmur, +S3, +S4 - Abdominal Exam Abdominal exam: Present: soft, Non-Tender - Neurological Exam Neurological exam: Present: oriented X3, CN II-XII intact, other (Patient hyper somnolent falling asleep midsentence & mid-conversation. Is oriented times 3 when questioned.). Absent: motor sensory deficit - Expanded Neurological Exam Patient oriented to: Present: person, place, time Speech: Present: fluid speech Cranial nerves: EOM function (II, III, IV, ): Normal, facial sensation (V): Normal, facial palsy (VII): Normal, spinal accessory function (XI): Normal, tongue deviation (XII): Normal Motor strength - LUE: 5/5 Motor strength - RUE: 5/5 Motor strength - LLE: 5/5 Motor strength - RLE: 5/5 Sensory exam upper extremity: light touch: Normal Sensory exam lower extremity: light touch: Normal Coma Scale Eye Opening: To Voice (Patient hypersomnolent) Coma Scale Motor Response: Obeys Commands Coma Scale Verbal Response: Oriented Coma Scale Total: 14 - Skin Skin exam: Present: warm, dry, normal color. Absent: cyanosis, diaphoresis, pallor, mottled Course Vital Signs Temperature 98.1 F 08/30/17 13:36 Pulse Rate 64 08/30/17 13:36 Respiratory Rate 16 08/30/17 13:36 Blood Pressure 110/59 08/30/17 13:36 O2 Sat by Pulse Oximetry 94 08/30/17 13:36 Temperature 98.0 F 08/30/17 19:31 Pulse Rate 60 08/30/17 19:31 Respiratory Rate 17 08/30/17 19:31 Blood Pressure 113/68 08/30/17 19:31 O2 Sat by Pulse Oximetry 97 08/30/17 19:31 Oxygen Delivery Oxygen Delivery Room Air Medical Decision Making - MDM Narrative Medical decision making narrative: Despite negative workup, patient has persistently been hypersomnolent and intermittently responsive when spoken to. Patient is a LLE amputee and was found down at home, suggesting he is a significant fall risk; notably patient lives alone. Spoke with Dr. Branch (hospitalist) who agrees to admit patient for observation of hypersomnolence/AMS. Patient has overall been stable during ED course with no significant diagnostic abnormalities. VSS. - Lab Data Lab results reviewed: Yes I reviewed the patient's lab results. Lab results narrative: Laboratory Last Values WBC 9.2 K/mcL (4.3-11.1) 08/30/17 15:24 RBC 3.67 M/mcL (4.19-5.50) L 08/30/17 15:24 Hgb 11.2 g/dL (12.9-16.9) L 08/30/17 15:24 Hct 33.4 % (37.5-50.1) L 08/30/17 15:24 MCV 91.0 fL (83.0-100.0) 08/30/17 15:24 MCH 30.5 pg (28.0-33.3) 08/30/17 15:24 MCHC 33.5 g/dL (31.6-35.5) 08/30/17 15:24 RDW 16.1 % (11.5-14.5) H 08/30/17 15:24 Plt Count 100 K/mcL (140-400) L 08/30/17 15:24 MPV 11.6 fL (9.4-12.4) 08/30/17 15:24 Immature Gran % 3.6 % (0-4) 08/30/17 15:24 Seg Neutrophils % 58.5 % 08/30/17 15:24 Lymphocytes % 21.2 % 08/30/17 15:24 Monocytes % 10.5 % 08/30/17 15:24 Eosinophils % 5.1 % 08/30/17 15:24 Basophils % 1.1 % 08/30/17 15:24 Neutrophils # 5.4 K/mcL (1.6-8.9) 08/30/17 15:24 Lymphocytes # 1.9 K/mcL (0.6-4.6) 08/30/17 15:24 Monocytes # 1.0 K/mcL (0.0-1.3) 08/30/17 15:24 Eosinophils # 0.5 K/mcL (0.0-0.6) 08/30/17 15:24 Basophils # 0.1 K/mcL (0.0-0.2) 08/30/17 15:24 Immature Plt Fraction 10.3 % (1.1-6.1) H 08/30/17 15:24 Sodium 138 mEq/L (136-145) 08/30/17 15:24 Potassium 4.7 mEq/L (3.5-4.5) H 08/30/17 15:24 Chloride 104 mEq/L (98-109) 08/30/17 15:24 Carbon Dioxide 23 mEq/L (19-29) 08/30/17 15:24 BUN 34 mg/dL (8-26) H 08/30/17 15:24 Creatinine 2.15 mg/dL (0.72-1.25) H 08/30/17 15:24 Est GFR ( Amer) 37 (> 60) L 08/30/17 15:24 Est GFR (Non-Af Amer) 31 (> 60) L 08/30/17 15:24 BUN/Creatinine Ratio 16 (6-26) 08/30/17 15:24 Glucose 274 mg/dL (70-99) H 08/30/17 15:24 Calculated Osmolality 303 (280-300) H 08/30/17 15:24 Calcium 8.3 mg/dL (8.6-10.8) L 08/30/17 15:24 Total Bilirubin 0.5 mg/dL (0.2-1.2) 08/30/17 15:24 Direct Bilirubin 0.2 mg/dL (0.0-0.5) 08/30/17 15:24 Indirect Bilirubin 0.3 mg/dL (0.0-1.2) 08/30/17 15:24 AST 39 Units/L (5-34) H 08/30/17 15:24 ALT 33 Units/L (0-55) 08/30/17 15:24 Alkaline Phosphatase 84 Units/L (38-126) 08/30/17 15:24 Creatine Kinase 211 Units/L (30-200) H 08/30/17 15:24 Troponin I 0.01 ng/mL (0-0.03) 08/30/17 15:24 Serum Total Protein 6.9 g/dL (6.0-8.3) 08/30/17 15:24 Albumin 3.3 g/dL (3.5-5.0) L 08/30/17 15:24 Globulin 3.6 g/dL (2.4-3.5) H 08/30/17 15:24 Albumin/Globulin Ratio 0.9 (1.1-2.2) L 08/30/17 15:24 Result diagrams: 08/30/17 15:24 08/30/17 15:24 Lab Results 08/30/17 08/30/17 08/30/17 Range/Units 15:24 15:24 15:24 WBC 9.2 (4.3-11.1) K/mcL RBC 3.67 L (4.19-5.50) M/mcL Hgb 11.2 L (12.9-16.9) g/dL Hct 33.4 L (37.5-50.1) % MCV 91.0 (83.0-100.0) fL MCH 30.5 (28.0-33.3) pg MCHC 33.5 (31.6-35.5) g/dL RDW 16.1 H (11.5-14.5) % Plt Count 100 L (140-400) K/mcL MPV 11.6 (9.4-12.4) fL Immature Gran % 3.6 (0-4) % Seg Neutrophils % 58.5 % Lymphocytes % 21.2 % Monocytes % 10.5 % Eosinophils % 5.1 % Basophils % 1.1 % Neutrophils # 5.4 (1.6-8.9) K/mcL Lymphocytes # 1.9 (0.6-4.6) K/mcL Monocytes # 1.0 (0.0-1.3) K/mcL Eosinophils # 0.5 (0.0-0.6) K/mcL Basophils # 0.1 (0.0-0.2) K/mcL Immature Plt Fraction 10.3 H (1.1-6.1) % Sodium 138 (136-145) mEq/L Potassium 4.7 H (3.5-4.5) mEq/L Chloride 104 (98-109) mEq/L Carbon Dioxide 23 (19-29) mEq/L BUN 34 H (8-26) mg/dL Creatinine 2.15 H (0.72-1.25) mg/dL Est GFR ( Amer) 37 L (> 60) Est GFR (Non-Af Amer) 31 L (> 60) BUN/Creatinine Ratio 16 (6-26) Glucose 274 H (70-99) mg/dL Calculated Osmolality 303 H (280-300) Calcium 8.3 L (8.6-10.8) mg/dL Total Bilirubin 0.5 (0.2-1.2) mg/dL Direct Bilirubin 0.2 (0.0-0.5) mg/dL Indirect Bilirubin 0.3 (0.0-1.2) mg/dL AST 39 H (5-34) Units/L ALT 33 (0-55) Units/L Alkaline Phosphatase 84 (38-126) Units/L Creatine Kinase 211 H (30-200) Units/L Troponin I 0.01 (0-0.03) ng/mL Serum Total Protein 6.9 (6.0-8.3) g/dL Albumin 3.3 L (3.5-5.0) g/dL Globulin 3.6 H (2.4-3.5) g/dL Albumin/Globulin Ratio 0.9 L (1.1-2.2) - Radiology Data Radiology results reviewed: Yes I reviewed the patient's radiology results. Chest X-Ray 08/30/17 14:45 IMPRESSION: Low lung volumes with bibasilar atelectasis. Stable asymmetric elevation of the left diaphragm. No significant interval change. D/ / 08/30/2017 17:07:45 Jamal Smith MD / emilio Interpreting Provider: Jamal Smith MD - EKG Data EKG #1 EKG attestation: Yes I reviewed and interpreted this EKG. EKG results narrative: 08/30/2017, 1343: rate 62, MI interval 138, QRS duration 110, QTC 448, axis -17 , no ischemic changes, no hyperacute T waves.
[2017-08-30 15:39] LABS: Basophils # 0.1 K/mcL (0.0-0.2); Basophils % 1.1 %; Eosinophils # 0.5 K/mcL (0.0-0.6); Eosinophils % 5.1 %; Hematocrit 33.4 % (37.5-50.1); Hemoglobin 11.2 g/dL (12.9-16.9); Immature Granulocytes % 3.6 % (0-4); Immature Platelets 10.3 % (1.1-6.1); Lymphocytes # 1.9 K/mcL (0.6-4.6); Lymphocytes % 21.2 %; Mean Corpuscular HGB Conc 33.5 g/dL (31.6-35.5); Mean Corpuscular Hemoglobin 30.5 pg (28.0-33.3); Mean Platelet Volume 11.6 fL (9.4-12.4); Monocytes % 10.5 %; Neutrophils # 5.4 K/mcL (1.6-8.9); Platelet Count 100 K/mcL (140-400); Red Blood Count 3.67 M/mcL (4.19-5.50); Red Cell Distribution Width 16.1 % (11.5-14.5); Segmented Neutrophils % 58.5 %
[2017-08-30 15:52] LABS: Albumin 3.3 g/dL (3.5-5.0); Albumin/Globulin Ratio 0.9 (1.1-2.2); Bilirubin,Direct 0.2 mg/dL (0.0-0.5); Bilirubin,Indirect 0.3 mg/dL (0.0-1.2); Bilirubin,Total 0.5 mg/dL (0.2-1.2); Calcium 8.3 mg/dL (8.6-10.8); Globulin 3.6 g/dL (2.4-3.5); Potassium 4.7 mEq/L (3.5-4.5); Total Protein 6.9 g/dL (6.0-8.3)
[2017-08-30] MEDS ORDERED: 0.9 % Sodium Chloride 1,000 ML ONE (17:33)
[2017-08-30] MEDS ORDERED: Naloxone 0.4 MG/ML INJ IVP ONE (19:34)
[2017-08-30] MEDS ORDERED: Insulin DETEMIR 100 UNIT/ML X5UNITS SQ SCH (21:00)
[2017-08-30] MEDS ORDERED: Insulin LISPRO 300 UNITS/3 ML VIAL SQ SCH (21:00)
[2017-08-30] MEDS ORDERED: Acetaminophen 325 MG TABLET PO PRN (21:06)
[2017-08-30] MEDS ORDERED: Naloxone 0.4 MG/ML INJ IVP PRN (21:06)
[2017-08-30] MEDS ORDERED: D5% in Water 1,000 ML IVC PRN (21:11)
[2017-08-30] MEDS ORDERED: Dextrose Gel 15 GM PO PRN ×2 (21:11)
[2017-08-30] MEDS ORDERED: *HR* Dextrose 50 % in Water (Syg) 50 ML SYRINGE IVP PRN (21:11)
[2017-08-30] MEDS ORDERED: Fluticasone Propionate Nasal 50 MCG/SPRAY BOTTLE NS PRN (21:12)
[2017-08-30] MEDS: 0.9 % Sodium Chloride 500 ML IV SCH (21:24)
[2017-08-30] MEDS: 0.9 % Sodium Chloride 1,000 ML IVC SCH (21:25)
--- NOTE | 2017-08-30 23:04 | Internal Med History&Physical ---
Date of Encounter: 08/31/17 Time of Encounter: 20:00 Assessment and Plan (1) DVT prophylaxis Current visit: No Status: Acute Heparin subcutaneously (2) Hypothyroidism Current visit: No Status: Chronic Continue home medications Qualifiers: Hypothyroidism type: acquired Qualified Code(s): E03.9 - Hypothyroidism, unspecified (3) HTN (hypertension) Current visit: No Status: Chronic Continue home medications. Hold losartan and Lasix because of THOMAS Qualifiers: Hypertension type: essential hypertension Qualified Code(s): I10 - Essential (primary) hypertension (4) Fall Current visit: No Status: Acute Patient was admitted for several times for fall. CT head and neck negative. Place patient on PTOT evaluation. Qualifiers: Encounter type: initial encounter Qualified Code(s): W19.XXXA - Unspecified fall, initial encounter (5) Confusion Current visit: No Status: Chronic Patient is drowsy and sleepy, can be waken up, answer question probably. - Patient has similar problem before, which was considered multi-pharmacy. Patient also has a pain pump for chronic pain. - On last admission, pain management decreased the dose of pain pump for about 30% and the patient's confusion has improved. - Will hold baclofen and Flexeril at this point, closely monitor patient. - If patient's confusion not improve, may consider pain management consult to adjust pain pump dose. (6) H/O: CVA (cerebrovascular accident) Current visit: No Status: Chronic Continue antiplatelet and statin (7) Gffuk-dz-leywnpf kidney injury Current visit: No Status: Acute Patient has a mild elevated creatinine from baseline. Will give IV fluid, follow-up renal function in a.m. Hold nephrotoxic medications Qualifiers: Acute renal failure type: unspecified Chronic kidney disease stage: stage 3 (moderate) Qualified Code(s): N17.9 - Acute kidney failure, unspecified; N18.3 - Chronic kidney disease, stage 3 (moderate); N18.3 - Chronic kidney disease, stage 3 (moderate) Internal Medicine - H&P: HPI Chief complaint: Fall Admitted From: Home Plans for Post Hospital Care: Transfer Inp Rehab Fac History of present illness: Mr. Borges is a 71 year old male with a history of diabetes, hypertension, S/ P left AKA, history of CVA, CKD, chronic pain presents to ER for fall at home. Patient denies loss of consciousness, he said he lost balance and fell on floor. Patient cannot get up by himself and to stay on floor for about 1 hour. Neighbor came in and help him to get up and called EMS. Patient denies head and neck injury, and a mild left shoulder pain but ROM of left shoulder is within normal limits. In emergency room, patient was found drowsy, elevated creatinine level from baseline. He was admitted for further monitoring. Past Med Surg Social Fam HX - Past Medical History Medical history: diabetes, renal disease, hypertension, other, CVA, thyroid disease, cancer, syncope Psychiatric history: no psych history, anxiety, depression - Past Surgical History Surgical History: orthopedic, other, thyroidectomy, other, appendectomy - Social History Smoking Status: Never smoker Smokeless Tobacco Status: No Alcohol use: none Drug use: none - Family History Mother Living Status: Hx Family Cardiac Disorders: Yes Father Living Status: Hx Family Cardiac Disorders: Yes Internal Medicine - H&P: Meds DULoxetine [Cymbalta] 60 mg PO DAILY 08/05/15 [History] Docusate [Colace] 200 mg PO BID PRN 08/05/15 [History] Donepezil [Aricept] 10 mg PO HS 08/05/15 [History] Lactulose 10 gm PO DAILY PRN 08/05/15 [History] Aspirin 81 mg PO DAILY 03/18/16 [History] Metoprolol Tartrate [Lopressor] 50 mg PO BID 03/18/16 [History] Furosemide [Lasix] 40 mg PO DAILY 07/30/16 [History] Mirabegron [Myrbetriq] 50 mg PO DAILY 07/30/16 [History] Fluticasone Propionate Nasal [Flonase] 50 mcg NS DAILY PRN 10/23/16 [History] Loratadine [Allergy Relief] 10 mg PO DAILY 10/23/16 [History] Ranitidine HCl [Zantac] 150 mg PO BID 10/23/16 [History] Amlodipine Besylate 10 mg PO DAILY 12/04/16 [History] Cyclobenzaprine [Flexeril] 5 mg PO TID PRN 12/04/16 [History] hydrALAZINE [HydrALAZINE] 10 mg PO BID #60 tablet 12/07/16 [Rx] Famotidine [Pepcid] 20 mg PO BID 04/08/17 [History] Ferrous Sulfate 325 mg PO BIDWM #30 tablet 04/19/17 [Rx] Atorvastatin [Lipitor] 40 mg PO HS 06/21/17 [History] Clopidogrel [Plavix] 75 mg PO DAILY 06/21/17 [History] Gabapentin [Neurontin] 100 mg PO BID 06/21/17 [History] Levothyroxine [Synthroid] 175 mcg PO QAM 06/21/17 [History] Lidocaine Patch [Lidoderm 5% patch] 1 each TP DAILY 06/21/17 [History] Losartan Potassium [Cozaar] 100 mg PO DAILY 06/21/17 [History] Baclofen [Lioresal] 10 mg PO TID 08/30/17 [History] Insulin NPH Human Isophane [Novolin N] 65 unit SQ BIDWM 08/30/17 [History] Insulin Regular, Human [Novolin R] 10 unit SQ TIDWM 08/30/17 [History] 3 Allergy/AdvReac Type Severity Reaction Status Date / Time adhesive tape Allergy Hives Verified 12/27/16 11:58 pregabalin [From Lyrica] Allergy Swelling Verified 12/27/16 11:58 of Lip/Tongue/Throat Sulfa (Sulfonamide Allergy PER PT Verified 12/27/16 11:58 Antibiotics) UNKNOWN REACTION All Systems PM: A 10-system review of systems was performed and is negative for pertinent findings except as documented above in the HPI. - Constitutional Vitals: Temp Pulse Resp BP Pulse Ox 98.0 F 60 17 113/68 97 08/30/17 19:31 08/30/17 19:31 08/30/17 19:31 08/30/17 19:31 08/30/17 19:31 General appearance: Present: A&O X 3, no acute distress, answers questions appropriately - Head Head exam: Present: atraumatic, normocephalic - Eye Eye exam: Present: PERRL, conjuntiva pink, sclera anicteric Pupils: Present: PERRL - Neck Neck exam general surgery: Present: supple, trachea midline. Absent: lymphadenopathy - Respiratory Respiratory exam: Present: CTAB. Absent: accessory muscle use, rales, rhonchi, wheezes - Cardiovascular Cardiovascular exam: Present: RRR, +S1, +S2. Absent: diastolic murmur, gallop, rubs, systolic murmur - GI/Abdominal GI/Abdominal exam: Present: normal bowel sounds, soft, no peritoneal signs. Absent: distended, tenderness Additional comments: Pain pump on the right lower abdominal wall - Extremities Exam Extremities exam: Present: warm, radial pulses palpable and symmetrical. Absent : calf tenderness, cyanotic, pedal edema Additional comments: Left-sided AKA - Neurological Exam Neurological exam: Present: CN II-XII intact, oriented X3, no focal deficits. Absent: pronater drift, facial droop, speech deficit - Skin Skin exam: Present: dry, intact Internal Med - H&P Results - Labs CBC & Chem 7: 08/30/17 15:24 08/30/17 15:24 - Impressions ITS Impressions Cervical Spine CT 08/30/17 19:37 IMPRESSION: Severely limited study with no definite fracture. D/ / Jorge Aguila MD / Jorge Aguila MD Interpreting Provider: Jorge Aguila MD Head CT 08/30/17 19:37 IMPRESSION: No acute intracranial hemorrhage or mass effect. D/ / 08/30/2017 21:21:08 Bennett Cerna MD / [email or web address] Interpreting Provider: Bennett Cerna MD
[2017-08-31] MEDS: 0.9 % Sodium Chloride 500 ML IV SCH ×3 (00:59→01:01)
[2017-08-31 04:22] LABS: Amphetamine Screen,Urine Negative ng/mL (Cutoff=1000); Barbiturate Screen,Urine Negative ng/mL (Cutoff=200); Benzodiazepines Screen,Urine Negative ng/mL (Cutoff=200); Cannabinoid Screen,Urine Negative ng/mL (Cutoff = 50); Cocaine Screen,Urine Negative ng/mL (Cutoff= 300); Opiate Screen,Urine Negative ng/mL (Cutoff=300); Phencyclidine Screen,Urine Negative ng/mL (Cutoff=25)
[2017-08-31 05:06] LABS: Basophils # 0.1 K/mcL (0.0-0.2); Basophils % 0.9 %; Eosinophils # 0.4 K/mcL (0.0-0.6); Eosinophils % 5.7 %; Hematocrit 34.9 % (37.5-50.1); Hemoglobin 11.4 g/dL (12.9-16.9); Immature Granulocytes % 2.8 % (0-4); Lymphocytes # 1.7 K/mcL (0.6-4.6); Lymphocytes % 22.3 %; Mean Corpuscular HGB Conc 32.7 g/dL (31.6-35.5); Mean Corpuscular Hemoglobin 29.9 pg (28.0-33.3); Mean Corpuscular Volume 91.6 fL (83.0-100.0); Mean Platelet Volume 11.5 fL (9.4-12.4); Monocytes # 0.6 K/mcL (0.0-1.3); Monocytes % 7.8 %; Neutrophils # 4.5 K/mcL (1.6-8.9); Red Blood Count 3.81 M/mcL (4.19-5.50); Red Cell Distribution Width 16.3 % (11.5-14.5); Segmented Neutrophils % 60.5 %
[2017-08-31 05:07] LABS: Platelet Count 85 K/mcL (140-400)
[2017-08-31] MEDS: *HR* Heparin 5,000 UNIT/ML VIAL SQ SCH ×2 (05:11→17:17)
[2017-08-31 05:22] LABS: Calcium 8.2 mg/dL (8.6-10.8); Potassium 4.5 mEq/L (3.5-4.5)
[2017-08-31] MEDS: Insulin LISPRO 300 UNITS/3 ML VIAL SQ SCH ×2 (08:59→11:22)
[2017-08-31] MEDS ORDERED: (Mirabegron [Myrbetriq] 50 MG) PO SCH (09:00)
[2017-08-31] MEDS ORDERED: Famotidine 20 MG TABLET PO SCH (09:00)
[2017-08-31] MEDS ORDERED: Loratadine 10 MG TABLET PO SCH (09:00)
[2017-08-31] MEDS ORDERED: Aspirin 81 MG TAB.CHEW PO SCH (09:00)
[2017-08-31] MEDS ORDERED: amLODIPine 5 MG TABLET PO SCH (09:00)
[2017-08-31] MEDS: hydrALAZINE 10 MG TABLET PO SCH ×2 (09:02→21:37)
[2017-08-31] MEDS: Gabapentin 100 MG CAPSULE PO SCH ×2 (09:02→21:37)
[2017-08-31] MEDS: Famotidine 20 MG TABLET PO SCH ×2 (09:04→21:37)
[2017-08-31] MEDS: 0.9 % Sodium Chloride 1,000 ML IVC SCH (11:21)
[2017-08-31] MEDS: Baclofen 10 MG TABLET PO SCH ×2 (14:45→21:37)
--- NOTE | 2017-08-31 15:14 | Internal Med Progress Note ---
Date of Encounter: 08/31/17 Time of Encounter: 08:45 - Assessment and plan (1) Altered mental status Current Visit: Yes Status: Resolved Assessment and plan: Could be related to multiple psychotropic and sedating medications that the patient receives. He was dehydrated on presentation with rising creatinine above baseline. This could have contributing to his excessive somnolence due to decreased excretion of these medications. Presently his symptoms have resolved. We will resume baclofen due to worsening spasms in his left leg. We will monitor him tonight in the hospital and as long as he is clinically stable , he will be ready for discharge tomorrow. Qualifiers: Altered mental status type: somnolence Qualified Code(s): R40.0 - Somnolence (2) Chronic kidney disease, stage III (moderate) Current Visit: Yes Status: Chronic Assessment and plan: With acute worsening of renal function. Patient's baseline appears to be between 1.2-1.6. Creatinine is 1.66 today. We will continue to monitor renal function closely. (3) Diabetes mellitus Current Visit: Yes Status: Chronic Assessment and plan: Uncontrolled. We will increase insulin coverage. Continue to monitor blood sugars. Diabetic diet. Qualifiers: Diabetes mellitus type: type 2 Diabetes mellitus complication status: with kidney complications Diabetes mellitus complication detail: with chronic kidney disease Diabetes mellitus shelter insulin use: without shelter use Chronic kidney disease stage: stage 3 (moderate) Qualified Code(s): E11.22 - Type 2 diabetes mellitus with diabetic chronic kidney disease; N18.3 - Chronic kidney disease, stage 3 (moderate) (4) DVT prophylaxis Current Visit: Yes Status: Acute Assessment and plan: On subcutaneous heparin (5) Fall Current Visit: Yes Status: Acute Assessment and plan: PT OT consulted. Qualifiers: Encounter type: initial encounter Qualified Code(s): W19.XXXA - Unspecified fall, initial encounter (6) H/O: CVA (cerebrovascular accident) Current Visit: Yes Status: Chronic Assessment and plan: Continue Plavix and statin. (7) Hypertension Current Visit: Yes Status: Chronic Assessment and plan: Blood pressure elevated this morning. Continue Lopressor, amlodipine and hydralazine. We will monitor blood pressure and adjust antihypertensive regimen accordingly. Qualifiers: Hypertension type: essential hypertension Qualified Code(s): I10 - Essential (primary) hypertension - Subjective Interval history: She is awake and alert. Feels much better today. Does have spasms in his left leg. These are chronic for the patient and he was taking baclofen but seem to be helping his symptoms at home. Denies any dizziness or lightheadedness. - Constitutional Vitals: Temp Pulse Resp BP Pulse Ox 98.0 F 64 19 169/83 95 08/31/17 11:12 08/31/17 11:12 08/31/17 11:12 08/31/17 11:12 08/31/17 11:12 General appearance: Present: A&O X 3, no acute distress, answers questions appropriately - Neck Neck exam general surgery: Present: supple, trachea midline. Absent: lymphadenopathy - Respiratory Respiratory exam: Present: CTAB. Absent: accessory muscle use, rales, rhonchi, wheezes - Cardiovascular Cardiovascular exam: Present: RRR, +S1, +S2. Absent: diastolic murmur, gallop, rubs, systolic murmur - GI/Abdominal GI/Abdominal exam: Present: normal bowel sounds, soft, no peritoneal signs. Absent: distended, tenderness - Extremities Exam Extremities exam: Present: warm, radial pulses palpable and symmetrical. Absent : calf tenderness, cyanotic, pedal edema Additional comments: Left AKA - Neurological Exam Neurological exam: Present: oriented X3, no focal deficits. Absent: facial droop, speech deficit Internal Medicine: Result - Labs CBC & Chem 7: 08/31/17 04:56 08/31/17 04:56 Labs: Short CBC 08/31/17 Range/Units 04:56 WBC 7.4 (4.3-11.1) K/mcL Hgb 11.4 L (12.9-16.9) g/dL Hct 34.9 L (37.5-50.1) % Plt Count 85 L (140-400) K/mcL Neutrophils # 4.5 (1.6-8.9) K/mcL BMP 08/31/17 04:56 Sodium 140 Potassium 4.5 Chloride 108 Carbon Dioxide 25 BUN 33 H Creatinine 1.66 H Glucose 195 H Calcium 8.2 L - Impressions Impressions Cervical Spine CT 08/30/17 19:37 IMPRESSION: Severely limited study with no definite fracture. D/ / Jorge Aguila MD / Jorge Aguila MD Interpreting Provider: Jorge Aguila MD Head CT 08/30/17 19:37 IMPRESSION: No acute intracranial hemorrhage or mass effect. D/ / 08/30/2017 21:21:08 Bennett Cerna MD / [email or web address] Interpreting Provider: Bennett Cerna MD Consult Discharge Plan - Plan Referrals: Chandan Fitzgerald MD [Primary Care Provider] - 09/03/17 8:30 am
[2017-08-31] MEDS ORDERED: Insulin LISPRO 300 UNITS/3 ML VIAL SQ SCH ×2 (15:19)
--- NOTE | 2017-08-31 18:26 | Electrocardiograph Report ---
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
--- NOTE | 2017-08-31 18:29 | Electrocardiograph Report ---
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
[2017-08-31] MEDS ORDERED: Insulin DETEMIR 100 UNIT/ML X5UNITS SQ SCH (21:00)
[2017-09-01] MEDS: *HR* Heparin 5,000 UNIT/ML VIAL SQ SCH (06:21)
[2017-09-01 08:44] VITALS: BP 164/84
--- NOTE | 2017-09-01 08:51 | Discharge Summary ---
Date of Encounter: 09/01/17 Time of Encounter: 08:49 - Discharge Diagnosis (1) Altered mental status Priority: Primary Status: Resolved Qualifiers: Altered mental status type: somnolence Qualified Code(s): R40.0 - Somnolence (2) Chronic kidney disease, stage III (moderate) Priority: Secondary Status: Chronic (3) Diabetes mellitus Priority: Secondary Status: Chronic Qualifiers: Diabetes mellitus type: type 2 Diabetes mellitus complication status: with kidney complications Diabetes mellitus complication detail: with chronic kidney disease Diabetes mellitus half-way insulin use: without half-way use Chronic kidney disease stage: stage 3 (moderate) Qualified Code(s): E11.22 - Type 2 diabetes mellitus with diabetic chronic kidney disease; N18.3 - Chronic kidney disease, stage 3 (moderate); N18.3 - Chronic kidney disease, stage 3 (moderate) (4) DVT prophylaxis Priority: Secondary Status: Acute (5) Fall Priority: Secondary Status: Acute Qualifiers: Encounter type: initial encounter Qualified Code(s): W19.XXXA - Unspecified fall, initial encounter (6) H/O: CVA (cerebrovascular accident) Priority: Secondary Status: Chronic (7) Hypertension Priority: Secondary Status: Chronic Qualifiers: Hypertension type: essential hypertension Qualified Code(s): I10 - Essential (primary) hypertension - Discharge Medications Home Medications: DULoxetine [Cymbalta] 60 mg PO DAILY 08/05/15 [History] Docusate [Colace] 200 mg PO BID PRN 08/05/15 [History] Donepezil [Aricept] 10 mg PO HS 08/05/15 [History] Lactulose 10 gm PO DAILY PRN 08/05/15 [History] Aspirin 81 mg PO DAILY 03/18/16 [History] Metoprolol Tartrate [Lopressor] 50 mg PO BID 03/18/16 [History] Furosemide [Lasix] 40 mg PO DAILY 07/30/16 [History] Mirabegron [Myrbetriq] 50 mg PO DAILY 07/30/16 [History] Fluticasone Propionate Nasal [Flonase] 50 mcg NS DAILY PRN 10/23/16 [History] Loratadine [Allergy Relief] 10 mg PO DAILY 10/23/16 [History] Ranitidine HCl [Zantac] 150 mg PO BID 10/23/16 [History] Amlodipine Besylate 10 mg PO DAILY 12/04/16 [History] Cyclobenzaprine [Flexeril] 5 mg PO TID PRN 12/04/16 [History] hydrALAZINE [HydrALAZINE] 10 mg PO BID #60 tablet 12/07/16 [Rx] Famotidine [Pepcid] 20 mg PO BID 04/08/17 [History] Ferrous Sulfate 325 mg PO BIDWM #30 tablet 04/19/17 [Rx] Atorvastatin [Lipitor] 40 mg PO HS 06/21/17 [History] Clopidogrel [Plavix] 75 mg PO DAILY 06/21/17 [History] Gabapentin [Neurontin] 100 mg PO BID 06/21/17 [History] Levothyroxine [Synthroid] 175 mcg PO QAM 06/21/17 [History] Lidocaine Patch [Lidoderm 5% patch] 1 each TP DAILY 06/21/17 [History] Losartan Potassium [Cozaar] 100 mg PO DAILY 06/21/17 [History] Baclofen [Lioresal] 10 mg PO TID 08/30/17 [History] Insulin NPH Human Isophane [Novolin N] 65 unit SQ BIDWM 08/30/17 [History] Insulin Regular, Human [Novolin R] 10 unit SQ TIDWM 08/30/17 [History] Allergies/Adverse Reactions: 3 Allergy/AdvReac Type Severity Reaction Status Date / Time adhesive tape Allergy Hives Verified 12/27/16 11:58 pregabalin [From Lyrica] Allergy Swelling Verified 12/27/16 11:58 of Lip/Tongue/Throat Sulfa (Sulfonamide Allergy PER PT Verified 12/27/16 11:58 Antibiotics) UNKNOWN REACTION Procedures/tests Complete & Pending: Procedures Performed prior 72 hours Category Date Time Status CT cervical spine wo con [CT] Stat Cat Scan 08/30/17 19:[address] head/brain wo con [CT] Stat Cat Scan 08/30/17 19:37 Completed ECG 12 lead ECG [ECG] Routine Y 08/30/17 13:43 Completed ECG 12 lead ECG [ECG] Routine Y 08/30/17 18:33 Completed Date of admission: 08/30/17 17:19 Primary care physician: Chandan Fitzgerald MD Consults: 08/30/17 21:09 Consult to Occupational Therapy [CONS] Routine Comment: Evaluate, develop and implement POC Reason for Consult: Fall Consult to Physical Therapy [CONS] Routine Comment: Evaluate, develop and implement POC Reason for Consult: Fall Consult to Ux Design Manager [CONS] Routine Reason for SW Consult: Fall Discharging clinician: Wally Saunders Anticipated date of discharge: 09/01/17 - Patient Status Disposition: Home, Self-Care Condition: Good Functional capacity at discharge: wheelchair bound Overall status at discharge: patient is progressing back to baseline - Discharge Instructions Instructions: Influenza Virus Vaccine (Injection), Cellulitis (DC), Syncope (DC ), Diabetes Mellitus Type 2 in Adults (DC), Peripheral Vascular Disorders (DC), Chronic Hypertension (DC), Fall Prevention (DC) Follow Up With: Chandan Fitzgerald MD [Primary Care Provider] - 09/03/17 8:30 am Alex Sanders MD [Partnered Physician] - (in 1-2 weeks for CKD) - Diet and Activity Activity: increase activity as tolerated Diet: low fat, low cholesterol, low salt diet Hospital course: Mr. Borges is a 71 year old male patient with a history of prior left above- knee amputation, hypertension, chronic kidney disease, chronic pain with pain pump presented to the ER after a fall which he says resulted from lost balance. He was brought into the ER with EMS and had been having episodes of waxing and waning consciousness on his way here. workup done here showed patient having acute kidney injury with creatinine above his baseline. He was hydrated with IV fluids and his mental status improved by yesterday morning. He was then observed here closely overnight to make sure he does not have any further episodes of similar decline in consciousness. I suspect the patient's altered mental status was likely due to his multiple medications including pain medications through his pain pump in the setting of his decreased renal function hampering his ability to excrete these medications appropriately. The patient is hesitant to further decrease his pain medications at this time as his pain does not appear to be appropriately controlled with his current regimen. He was evaluated by physical therapy and recommended that he could be discharged home.his renal function has now returned to his baseline. He has not had any further episodes of decrease in consciousness and is doing much better this morning. He is stable to be discharged home. He will seek continues to have further episodes of ncreased somnolence, he will need his pain medication regimen decreased further. patient did have slight rise in his creatinine kinase level but this appears to be chronic for the patient given his history of left above-knee amputation and recurrent spasms - Time Spent with Patient Total time spent providing and/or coordinating discharge services: Less than 30 minutes (20 min) - Constitutional Vitals: Temp Pulse Resp BP Pulse Ox 97.9 F 62 16 164/84 98 09/01/17 08:40 09/01/17 08:40 09/01/17 08:40 09/01/17 08:40 09/01/17 08:40 General appearance: Present: A&O X 3, no acute distress, answers questions appropriately - Respiratory Respiratory exam: Present: CTAB. Absent: accessory muscle use, rales, rhonchi, wheezes - Cardiovascular Cardiovascular exam: Present: RRR, +S1, +S2. Absent: diastolic murmur, gallop, rubs, systolic murmur - GI/Abdominal GI/Abdominal exam: Present: normal bowel sounds, soft, no peritoneal signs. Absent: distended, tenderness - Extremities Exam Extremities exam: Present: warm, radial pulses palpable and symmetrical. Absent : calf tenderness, cyanotic, pedal edema Additional comments: s/p left AKA
[2017-09-01] MEDS ORDERED: Furosemide 40 MG TABLET PO SCH (09:00)
== END 2017-09-01 10:40 | disposition home or self-care (01) ==
LOC: EMEROO 13:26 → 3BNU 13:26 → SUATTDRO 17:19 → 3BNU 17:47
PROVIDERS: ADMIT Internal Medicine; ATTEND Internal Medicine

== ENCOUNTER 2018-03-15 16:41 | Inpatient (IN) ==
--- NOTE | 2018-03-15 17:14 | Emergency Department Note ---
Disposition Clinical Impression: Altered mental status, Metabolic acidosis, Syncope and collapse Disposition: Admitted As Inpatient Condition: Critical Referrals: Chandan Fitzgerald MD [Primary Care Provider] - Forms: ED Satisfaction Letter Time of Disposition: 21:24 Fall HPI - General Chief Complaint: ED Fall Stated Complaint: Fall/lathargic Time Seen by Provider: 03/15/18 16:48 Nursing Notes Reviewed: Yes Vital Signs Reviewed: Yes - History of Present Illness HPI Narrative: Patient is a 72 Y M with a past medical history of hypertension, diabetes, hypertension, CVA, chronic kidney disease that presents s/p fall. Patient was found by daughter in the bedroom on the ground with the bathtub running. Estimated time of fall was last night. Patient was altered on presentation. He came into the ED hypothermic at 93 degrees F. Blood glucose was 236. Was able to speak to daughter who says patient was complaining of chest pain a few days prior. She says he did not complain of any shortness of breath, cough, or fever. She says the last time this occurred was one year ago due to an infection she could not remember. - Related Data Home Medications Medication Instructions Recorded Confirmed DULoxetine [Cymbalta] 60 mg PO DAILY 08/05/15 03/15/18 Docusate [Colace] 200 mg PO BID PRN 08/05/15 03/15/18 Donepezil [Aricept] 10 mg PO HS 08/05/15 03/15/18 Lactulose 10 gm PO DAILY PRN 08/05/15 03/15/18 Aspirin 81 mg PO DAILY 03/18/16 03/15/18 Metoprolol Tartrate [Lopressor] 50 mg PO BID 03/18/16 03/15/18 Furosemide [Lasix] 40 mg PO DAILY 07/30/16 03/15/18 Mirabegron [Myrbetriq] 50 mg PO DAILY 07/30/16 03/15/18 Fluticasone Propionate Nasal 50 mcg NS DAILY PRN 10/23/16 03/15/18 [Flonase] Loratadine [Allergy Relief] 10 mg PO DAILY 10/23/16 03/15/18 Amlodipine Besylate 10 mg PO DAILY 12/04/16 03/15/18 Cyclobenzaprine [Flexeril] 5 mg PO TID PRN 12/04/16 03/15/18 Famotidine [Pepcid] 20 mg PO BID 04/08/17 03/15/18 Atorvastatin [Lipitor] 40 mg PO HS 06/21/17 03/15/18 Clopidogrel [Plavix] 75 mg PO DAILY 06/21/17 03/15/18 Gabapentin [Neurontin] 100 mg PO BID 06/21/17 03/15/18 Levothyroxine [Synthroid] 175 mcg PO QAM 06/21/17 03/15/18 Lidocaine Patch [Lidoderm 5% patch] 1 each TP DAILY 06/21/17 03/15/18 Losartan Potassium [Cozaar] 100 mg PO DAILY 06/21/17 03/15/18 Baclofen [Lioresal] 10 mg PO TID 08/30/17 03/15/18 Insulin NPH Human Isophane 65 unit SQ BIDWM 08/30/17 03/15/18 [Novolin N] Insulin Regular, Human [Novolin R] 10 unit SQ TIDWM 08/30/17 03/15/18 Lisinopril [Zestril] 20 mg PO DAILY 03/15/18 03/15/18 Tizanidine HCl [Tizanidine HCl] 4 mg PO BID PRN 03/15/18 03/15/18 Previous Rx's Medication Instructions Recorded hydrALAZINE [HydrALAZINE] 10 mg PO BID #60 tablet 12/07/16 Ferrous Sulfate 325 mg PO BIDWM #30 tablet 04/19/17 Allergies Allergy/AdvReac Type Severity Reaction Status Date / Time adhesive tape Allergy Hives Verified 12/26/17 17:43 pregabalin [From Lyrica] Allergy Swelling Verified 12/26/17 17:43 of Lip/Tongue/Throat Sulfa (Sulfonamide Allergy PER PT Verified 12/26/17 17:43 Antibiotics) UNKNOWN REACTION Limitations: ROS unobtainable due to patients medical condition Fall PMH - Past Medical History Medical history: Reports: diabetes, renal disease, hypertension, other, CVA, thyroid disease, cancer, syncope Surgical history: Reports: orthopedic, other, thyroidectomy, other, appendectomy Psychiatric history: Reports: no psych history, anxiety, depression - Social History Smoking Status: Never smoker Alcohol use: Reports: none Drug use: Reports: none Physical Exam - General Limitations: altered mental status (Patient somnolent. Responded to some questions. ) - Head Head exam: atraumatic, normocephalic, normal inspection - Eye Eye exam: Present: normal appearance, PERRL, EOMI - Chest Chest inspection: Present: normal inspection, symmetric chest wall rise - Respiratory Respiratory exam: Present: normal lung sounds bilaterally. Absent: respiratory distress - Cardiovascular Cardiovascular exam: Present: regular rate, normal rhythm, normal heart sounds, +S1, +S2 - Abdominal Exam Abdominal exam: Present: soft, Non-Tender, normal bowel sounds. Absent: guarding, rebound, rigidity - Extremities Exam Extremities exam: Present: normal capillary refill, other (R above the knee amputation.). Absent: pedal edema - Expanded Lower Extremity Exam Neurovascular/Tendon exam: Present: normal capillary refill, extremity cold to touch (RLE mildly cool to touch. ), other (Pulse infect in RLE and UE b/l. ) Course Course Narrative: Patient came in hypothermic at 93 F. We took measures to warm the patient with warm blankets. Given patient was had unwitnessed syncope, we ordered CT of the head to rule out any acute bleed, which revealed to be normal. Labs showed severe hyperkalemia at 9.32, elevated creatinine at 9.32, and BUN greater than 130. Initial EKG showed acute changes depicting a RBBB vs J-waves when compared to the previous one. Dr. Borrero from cardiology was consulted who said the EKG showed probable RBBB with an escape rhythm. Patient was given calcium carbonate for hyperkalemia. Dr. Osborne from nephrology was consulted who recommended patient to be placed on dialysis. Central femoral line was placed along with catheter. Patient was given antibiotics due to difficulty of placing central lines. Repeated serial core temps were taken which showing temp elevating up to 96.8. Patient was given total 3 L fluid NS bolus. He continued to become hypotensive and was subsequently given vasopressors. Serial EKG were performed. Last EKG showed resolution of RBBB. Was able to speak to hospitalist Dr. Gay who agreed to admit patient. IR in route to place dialysis catheter. Cervical Spine CT 03/15/18 16:51 IMPRESSION: No acute abnormality of the cervical spine. No acute intracranial abnormality. D/ / Sierra Elizabeth Cha, MD / Sierra Elizabeth Cha, MD Interpreting Provider: Sierra Elizabeth Cha, MD Head CT 03/15/18 16:51 IMPRESSION: No acute abnormality of the cervical spine. No acute intracranial abnormality. D/ / Sierra Elizabeth Cha, MD / Sierra Elizabeth Cha, MD Interpreting Provider: Sierra Elizabeth Cha, MD Chest X-Ray 03/15/18 19:37 IMPRESSION: Shallow lung inflation with findings consistent with subsegmental atelectasis. No pneumothorax identified. D/ / Wilman Neal / Wilman Neal Interpreting Provider: Wilman Neal Abdomen/Pelvis CT 03/15/18 19:42 IMPRESSION: Right femoral venous central venous catheters as described above. The larger caliber catheter appears to be curled within the right femoral vein. Cirrhotic morphology liver as above. There is an indeterminate 6 mm lateral segment left hepatic lobe lesion. A liver protocol MRI is recommended to further evaluate. Cholelithiasis. D/ / Sierra Elizabeth Cha, MD / Sierra Elizabeth Cha, MD Interpreting Provider: Sierra Elizabeth Cha, MD Vital Signs Temperature 94.1 F L 03/15/18 16:44 Pulse Rate 88 03/15/18 16:44 Respiratory Rate 20 03/15/18 16:44 Blood Pressure 94/57 03/15/18 16:44 O2 Sat by Pulse Oximetry 96 03/15/18 16:44 Temperature 96.8 F L 03/15/18 20:39 Pulse Rate 80 03/15/18 20:39 Respiratory Rate 20 03/15/18 20:39 Blood Pressure 70/43 03/15/18 20:39 O2 Sat by Pulse Oximetry 96 03/15/18 20:39 Oxygen Delivery Oxygen Delivery Room Air Fall - Lab Data Result diagrams: 03/15/18 17:37 03/15/18 18:27 Lab Results 03/15/18 03/15/18 03/15/18 Range/Units 16:54 16:56 17:20 WBC (4.3-11.1) K/mcL RBC (4.19-5.50) M/mcL Hgb (12.9-16.9) g/dL Hct (37.5-50.1) % MCV (83.0-100.0) fL MCH (28.0-33.3) pg MCHC (31.6-35.5) g/dL RDW (11.5-14.5) % Plt Count (140-400) K/mcL MPV (9.4-12.4) fL Immature Gran % (0-4) % Seg Neutrophils % % Lymphocytes % % Monocytes % % Eosinophils % % Basophils % % Neutrophils # (1.6-8.9) K/mcL Lymphocytes # (0.6-4.6) K/mcL Monocytes # (0.0-1.3) K/mcL Eosinophils # (0.0-0.6) K/mcL Basophils # (0.0-0.2) K/mcL PT (9.4-12.1) Seconds INR APTT (26.0-36.0) Seconds Sodium (136-145) mEq/L Potassium (3.5-5.1) mEq/L Chloride (98-107) mEq/L Carbon Dioxide (23-29) mEq/L BUN (8-23) mg/dL Creatinine (0.70-1.30) mg/dL Est GFR ( Amer) (> 60) Est GFR (Non-Af Amer) (> 60) BUN/Creatinine Ratio Glucose (70-105) mg/dL POC Glucose 231 H 242 H (70-99) mg/dL Calculated Osmolality Calcium (8.6-10.3) mg/dL Magnesium (1.6-2.6) mg/dL Creatine Kinase (30-223) Units/L Troponin I (< 0.04) ng/mL TSH (0.340-5.600) mcIU/mL Urine Color Yellow (Yellow) Urine Clarity Clear (Clear) Urine pH 5.0 (5.0-8.0) pH Units Ur Specific [place] 1.026 H (1.010-1.025) Urine Protein 30 H (Neg-Trace) mg/dL Urine Glucose (UA) 250 H (Normal) mg/dL Urine Ketones Negative (Negative) mg/dL Urine Blood Negative (Negative) Urine Nitrite Negative (Negative) Urine Bilirubin Small H (Negative) Urine Urobilinogen Normal (Normal) mg/dL Ur Leukocyte Esterase Negative (Negative) Urine Microscopic RBC 0-3 (0-3) per hpf Urine Microscopic WBC 0-3 (0-3) per hpf Ur Squamous Epith Cells Few (None-Few) per lpf Urine Bacteria None Seen (None-Few) per hpf Hyaline Casts None Seen (None-Few) per lpf Ur Culture Indicated? NO (NO) 03/15/18 03/15/18 03/15/18 Range/Units 17:37 17:37 17:37 WBC 20.2 H (4.3-11.1) K/mcL RBC 3.91 L (4.19-5.50) M/mcL Hgb 12.0 L (12.9-16.9) g/dL Hct 37.2 L (37.5-50.1) % MCV 95.1 (83.0-100.0) fL MCH 30.7 (28.0-33.3) pg MCHC 32.3 (31.6-35.5) g/dL RDW 14.0 (11.5-14.5) % Plt Count 222 (140-400) K/mcL MPV 12.3 (9.4-12.4) fL Immature Gran % 1.4 (0-4) % Seg Neutrophils % 81.4 % Lymphocytes % 8.8 % Monocytes % 7.5 % Eosinophils % 0.5 % Basophils % 0.4 % Neutrophils # 16.4 H (1.6-8.9) K/mcL Lymphocytes # 1.8 (0.6-4.6) K/mcL Monocytes # 1.5 H (0.0-1.3) K/mcL Eosinophils # 0.1 (0.0-0.6) K/mcL Basophils # 0.1 (0.0-0.2) K/mcL PT (9.4-12.1) Seconds INR APTT (26.0-36.0) Seconds Sodium 136 (136-145) mEq/L Potassium 7.5 H* (3.5-5.1) mEq/L Chloride 99 (98-107) mEq/L Carbon Dioxide 12 L (23-29) mEq/L BUN > 130 H (8-23) mg/dL Creatinine 9.32 H (0.70-1.30) mg/dL Est GFR ( Amer) 7 L (> 60) Est GFR (Non-Af Amer) 6 L (> 60) BUN/Creatinine Ratio TNP Glucose 240 H (70-105) mg/dL POC Glucose (70-99) mg/dL Calculated Osmolality TNP Calcium 9.5 (8.6-10.3) mg/dL Magnesium 3.0 H (1.6-2.6) mg/dL Creatine Kinase 488 H (30-223) Units/L Troponin I 0.03 (< 0.04) ng/mL TSH 16.493 H (0.340-5.600) mcIU/mL Urine Color (Yellow) Urine Clarity (Clear) Urine pH (5.0-8.0) pH Units Ur Specific [place] (1.010-1.025) Urine Protein (Neg-Trace) mg/dL Urine Glucose (UA) (Normal) mg/dL Urine Ketones (Negative) mg/dL Urine Blood (Negative) Urine Nitrite (Negative) Urine Bilirubin (Negative) Urine Urobilinogen (Normal) mg/dL Ur Leukocyte Esterase (Negative) Urine Microscopic RBC (0-3) per hpf Urine Microscopic WBC (0-3) per hpf Ur Squamous Epith Cells (None-Few) per lpf Urine Bacteria (None-Few) per hpf Hyaline Casts (None-Few) per lpf Ur Culture Indicated? (NO) 03/15/18 03/15/18 Range/Units 18:27 18:27 WBC (4.3-11.1) K/mcL RBC (4.19-5.50) M/mcL Hgb (12.9-16.9) g/dL Hct (37.5-50.1) % MCV (83.0-100.0) fL MCH (28.0-33.3) pg MCHC (31.6-35.5) g/dL RDW (11.5-14.5) % Plt Count (140-400) K/mcL MPV (9.4-12.4) fL Immature Gran % (0-4) % Seg Neutrophils % % Lymphocytes % % Monocytes % % Eosinophils % % Basophils % % Neutrophils # (1.6-8.9) K/mcL Lymphocytes # (0.6-4.6) K/mcL Monocytes # (0.0-1.3) K/mcL Eosinophils # (0.0-0.6) K/mcL Basophils # (0.0-0.2) K/mcL PT 13.8 H (9.4-12.1) Seconds INR 1.3 APTT 34.6 (26.0-36.0) Seconds Sodium (136-145) mEq/L Potassium 7.3 H* (3.5-5.1) mEq/L Chloride (98-107) mEq/L Carbon Dioxide (23-29) mEq/L BUN (8-23) mg/dL Creatinine (0.70-1.30) mg/dL Est GFR ( Amer) (> 60) Est GFR (Non-Af Amer) (> 60) BUN/Creatinine Ratio Glucose (70-105) mg/dL POC Glucose (70-99) mg/dL Calculated Osmolality Calcium (8.6-10.3) mg/dL Magnesium (1.6-2.6) mg/dL Creatine Kinase (30-223) Units/L Troponin I (< 0.04) ng/mL TSH (0.340-5.600) mcIU/mL Urine Color (Yellow) Urine Clarity (Clear) Urine pH (5.0-8.0) pH Units Ur Specific [place] (1.010-1.025) Urine Protein (Neg-Trace) mg/dL Urine Glucose (UA) (Normal) mg/dL Urine Ketones (Negative) mg/dL Urine Blood (Negative) Urine Nitrite (Negative) Urine Bilirubin (Negative) Urine Urobilinogen (Normal) mg/dL Ur Leukocyte Esterase (Negative) Urine Microscopic RBC (0-3) per hpf Urine Microscopic WBC (0-3) per hpf Ur Squamous Epith Cells (None-Few) per lpf Urine Bacteria (None-Few) per hpf Hyaline Casts (None-Few) per lpf Ur Culture Indicated? (NO) - EKG Data EKG attestation: Yes I reviewed and interpreted this EKG. EKG results narrative: 1st EKG at 1711 showed Sinus rhythm with new onset RBBB?J-waves in V2-V3. 2nd EKG at 1717 showed sinus rhytm with RBBB/J-waves in V2-V3. 3Rd EKG at 1813 showed sinus rhytm with RBBB/J-waves in V2-V3. 4th EKG at 7 showed sinus rhytmn with resolution of RBB previously in V2-V3. EKG shows normal: sinus rhythm (Possibly J-waves), axis, intervals, ST-T waves Rate: normal [place]/QRS: left axis deviation, RBBB When compared to previous EKG there are: changes noted Interpretation: other (Sinus rhythm with new RBBB/J-waves) Attestation Statement - Attestation Attestation: I, Albino Huffman DO, examined this patient [id number] and my medical decision-making was reviewed with Mario Parker PGY-1, Resident Physician. I agree with the documented findings, disposition and treatment plan as described except to the extent set forth below. Please see my progress notes for details.
[2018-03-15] MEDS ORDERED: *HR* Norepinephrine 4 MG/4 ML VIAL IVC ONE (17:19)
[2018-03-15] MEDS ORDERED: 0.9 % Sodium Chloride 1,000 ML IVC SCH (17:30)
[2018-03-15 17:33] LABS: Bilirubin,Urine Small (Negative); Blood,Urine Negative (Negative); Clarity,Urine Clear (Clear); Color,Urine Yellow (Yellow); Glucose,Urine (UA) 250 mg/dL (Normal); Ketones,Urine Negative (Negative); Leukocyte Esterase,Urine Negative (Negative); Nitrite,Urine Negative (Negative); Protein,Urine 30 mg/dL (Neg-Trace); Specific Gravity,Urine 1.026 (1.010-1.025); Urobilinogen,Urine Normal (Normal)
[2018-03-15 17:35] LABS: Bacteria,Urine None Seen per hpf (None-Few); Hyaline Casts,Urine None Seen per lpf (None-Few); RBC,Urine 0-3 per hpf (0-3); Squamous Epithelial Cell,Urine Few per lpf (None-Few); WBC,Urine 0-3 per hpf (0-3)
[2018-03-15 17:51] LABS: Basophils # 0.1 K/mcL (0.0-0.2); Basophils % 0.4 %; Eosinophils # 0.1 K/mcL (0.0-0.6); Eosinophils % 0.5 %; Hematocrit 37.2 % (37.5-50.1); Immature Granulocytes % 1.4 % (0-4); Lymphocytes # 1.8 K/mcL (0.6-4.6); Lymphocytes % 8.8 %; Mean Corpuscular HGB Conc 32.3 g/dL (31.6-35.5); Mean Corpuscular Hemoglobin 30.7 pg (28.0-33.3); Mean Corpuscular Volume 95.1 fL (83.0-100.0); Mean Platelet Volume 12.3 fL (9.4-12.4); Monocytes # 1.5 K/mcL (0.0-1.3); Monocytes % 7.5 %; Neutrophils # 16.4 K/mcL (1.6-8.9); Platelet Count 222 K/mcL (140-400); Red Blood Count 3.91 M/mcL (4.19-5.50); Segmented Neutrophils % 81.4 %
[2018-03-15] MEDS ORDERED: 0.9 % Sodium Chloride 1,000 ML IVC ONE ×3 (17:57→20:16)
[2018-03-15 18:08] LABS: Troponin I 0.03 ng/mL (< 0.04)
[2018-03-15] MEDS ORDERED: Insulin Human Regular 10 UNIT in 0.9 % Sodium Chloride 10 ML IV ONE ×2 (18:09→20:42)
[2018-03-15] MEDS ORDERED: *HR* Dextrose 50 % in Water (Syg) 50 ML SYRINGE IVP ONE ×2 (18:09→20:42)
[2018-03-15 18:10] LABS: Blood Urea Nitrogen > 130 mg/dL (8-23); Calcium 9.5 mg/dL (8.6-10.3); Carbon Dioxide 12 mEq/L (23-29); Chloride 99 mEq/L (98-107); Glucose 240 mg/dL (70-105); eGFR For African Americans 7 (> 60); eGFR For Non-African Americans 6 (> 60)
[2018-03-15] MEDS ORDERED: Albuterol 2.5 MG/3 ML NEBULIZER IH ONE (18:10)
[2018-03-15 18:13] LABS: Sodium 136 mEq/L (136-145)
[2018-03-15] MEDS ORDERED: Sodium Bicarbonate 150 MEQ in D5% in Water 1,000 ML IVC SCH (18:30)
[2018-03-15 18:37] LABS: Thyroid Stimulating Hormone 16.493 mcIU/mL (0.340-5.600)
[2018-03-15 18:47] LABS: INR 1.3; Prothrombin Time 13.8 Seconds (9.4-12.1)
[2018-03-15 18:54] LABS: Activated Partial Thrombo Time 34.6 Seconds (26.0-36.0)
[2018-03-15] MEDS ORDERED: 0.9 % Sodium Chloride 250 ML IVC PRN (19:13)
[2018-03-15] MEDS ORDERED: 0.9 % Sodium Chloride 1,000 ML PRIME SCH (19:15)
[2018-03-15] MEDS ORDERED: Cefepime HCl 2,000 MG in Water for inj. (sterile) 20 ML 20 ML IVP STA (19:38)
[2018-03-15 20:39] LABS: Potassium 7.5 mEq/L (3.5-5.1)
--- NOTE | 2018-03-15 20:45 | Emergency Department Note ---
Disposition Clinical Impression: Altered mental status, Metabolic acidosis, Syncope and collapse, Hyperkalemia, Uremia, Dehydration, Rhabdomyolysis Acute kidney failure, unspecified Qualifiers: Acute renal failure type: unspecified Qualified Code(s): N17.9 - Acute kidney failure, unspecified Disposition: Admitted As Inpatient Condition: Critical Referrals: Chandan Fitzgerald MD [Primary Care Provider] - Forms: ED Satisfaction Letter Time of Disposition: 21:44 General Adult HPI - General Chief complaint: ED Fall Stated complaint: Fall/lathargic Time Seen by Provider: 03/15/18 16:48 Source: EMS Limitations: altered mental status - History of Present Illness Pain Scale: 0 - Related Data Home Medications Medication Instructions Recorded Confirmed DULoxetine [Cymbalta] 60 mg PO DAILY 08/05/15 03/15/18 Docusate [Colace] 200 mg PO BID PRN 08/05/15 03/15/18 Donepezil [Aricept] 10 mg PO HS 08/05/15 03/15/18 Lactulose 10 gm PO DAILY PRN 08/05/15 03/15/18 Aspirin 81 mg PO DAILY 03/18/16 03/15/18 Metoprolol Tartrate [Lopressor] 50 mg PO BID 03/18/16 03/15/18 Furosemide [Lasix] 40 mg PO DAILY 07/30/16 03/15/18 Mirabegron [Myrbetriq] 50 mg PO DAILY 07/30/16 03/15/18 Fluticasone Propionate Nasal 50 mcg NS DAILY PRN 10/23/16 03/15/18 [Flonase] Loratadine [Allergy Relief] 10 mg PO DAILY 10/23/16 03/15/18 Amlodipine Besylate 10 mg PO DAILY 12/04/16 03/15/18 Cyclobenzaprine [Flexeril] 5 mg PO TID PRN 12/04/16 03/15/18 Famotidine [Pepcid] 20 mg PO BID 04/08/17 03/15/18 Atorvastatin [Lipitor] 40 mg PO HS 06/21/17 03/15/18 Clopidogrel [Plavix] 75 mg PO DAILY 06/21/17 03/15/18 Gabapentin [Neurontin] 100 mg PO BID 06/21/17 03/15/18 Levothyroxine [Synthroid] 175 mcg PO QAM 06/21/17 03/15/18 Lidocaine Patch [Lidoderm 5% patch] 1 each TP DAILY 06/21/17 03/15/18 Losartan Potassium [Cozaar] 100 mg PO DAILY 06/21/17 03/15/18 Baclofen [Lioresal] 10 mg PO TID 08/30/17 03/15/18 Insulin NPH Human Isophane 65 unit SQ BIDWM 08/30/17 03/15/18 [Novolin N] Insulin Regular, Human [Novolin R] 10 unit SQ TIDWM 08/30/17 03/15/18 Lisinopril [Zestril] 20 mg PO DAILY 03/15/18 03/15/18 Tizanidine HCl [Tizanidine HCl] 4 mg PO BID PRN 03/15/18 03/15/18 Previous Rx's Medication Instructions Recorded hydrALAZINE [HydrALAZINE] 10 mg PO BID #60 tablet 12/07/16 Ferrous Sulfate 325 mg PO BIDWM #30 tablet 04/19/17 Allergies Allergy/AdvReac Type Severity Reaction Status Date / Time adhesive tape Allergy Hives Verified 12/26/17 17:43 pregabalin [From Lyrica] Allergy Swelling Verified 12/26/17 17:43 of Lip/Tongue/Throat Sulfa (Sulfonamide Allergy PER PT Verified 12/26/17 17:43 Antibiotics) UNKNOWN REACTION Past Medical History - Past Medical History Medical history: Reports: diabetes, renal disease, hypertension, other, CVA, thyroid disease, cancer, syncope Surgical history: Reports: orthopedic, other, thyroidectomy, other, appendectomy Psychiatric history: Reports: no psych history, anxiety, depression - Social History Smoking Status: Never smoker Smokeless Tobacco Status: No Alcohol use: Reports: none Drug use: Reports: none Physical Exam - General Limitations: altered mental status General appearance: lethargic Course Vital Signs Temperature 94.1 F L 03/15/18 16:44 Pulse Rate 88 03/15/18 16:44 Respiratory Rate 20 03/15/18 16:44 Blood Pressure 94/57 03/15/18 16:44 O2 Sat by Pulse Oximetry 96 03/15/18 16:44 Temperature 96.8 F L 03/15/18 20:39 Pulse Rate 87 03/15/18 21:25 Respiratory Rate 18 03/15/18 21:25 Blood Pressure 115/55 03/15/18 21:25 O2 Sat by Pulse Oximetry 96 03/15/18 21:25 Oxygen Delivery Oxygen Delivery Room Air Medical Decision Making - Lab Data Result diagrams: 03/15/18 19:51 03/15/18 18:27 Lab Results 03/15/18 03/15/18 03/15/18 Range/Units 16:54 16:56 17:20 WBC (4.3-11.1) K/mcL RBC (4.19-5.50) M/mcL Hgb (12.9-16.9) g/dL Hct (37.5-50.1) % MCV (83.0-100.0) fL MCH (28.0-33.3) pg MCHC (31.6-35.5) g/dL RDW (11.5-14.5) % Plt Count (140-400) K/mcL MPV (9.4-12.4) fL Immature Gran % (0-4) % Seg Neutrophils % % Lymphocytes % % Monocytes % % Eosinophils % % Basophils % % Neutrophils # (1.6-8.9) K/mcL Lymphocytes # (0.6-4.6) K/mcL Monocytes # (0.0-1.3) K/mcL Eosinophils # (0.0-0.6) K/mcL Basophils # (0.0-0.2) K/mcL PT (9.4-12.1) Seconds INR APTT (26.0-36.0) Seconds Sodium (136-145) mEq/L Potassium (3.5-5.1) mEq/L Chloride (98-107) mEq/L Carbon Dioxide (23-29) mEq/L BUN (8-23) mg/dL Creatinine (0.70-1.30) mg/dL Est GFR ( Amer) (> 60) Est GFR (Non-Af Amer) (> 60) BUN/Creatinine Ratio Glucose (70-105) mg/dL POC Glucose 231 H 242 H (70-99) mg/dL Calculated Osmolality Calcium (8.6-10.3) mg/dL Magnesium (1.6-2.6) mg/dL Creatine Kinase (30-223) Units/L Troponin I (< 0.04) ng/mL TSH (0.340-5.600) mcIU/mL Urine Color Yellow (Yellow) Urine Clarity Clear (Clear) Urine pH 5.0 (5.0-8.0) pH Units Ur Specific [place] 1.026 H (1.010-1.025) Urine Protein 30 H (Neg-Trace) mg/dL Urine Glucose (UA) 250 H (Normal) mg/dL Urine Ketones Negative (Negative) mg/dL Urine Blood Negative (Negative) Urine Nitrite Negative (Negative) Urine Bilirubin Small H (Negative) Urine Urobilinogen Normal (Normal) mg/dL Ur Leukocyte Esterase Negative (Negative) Urine Microscopic RBC 0-3 (0-3) per hpf Urine Microscopic WBC 0-3 (0-3) per hpf Ur Squamous Epith Cells Few (None-Few) per lpf Urine Bacteria None Seen (None-Few) per hpf Hyaline Casts None Seen (None-Few) per lpf Ur Culture Indicated? NO (NO) 03/15/18 03/15/18 03/15/18 Range/Units 17:37 17:37 17:37 WBC 20.2 H (4.3-11.1) K/mcL RBC 3.91 L (4.19-5.50) M/mcL Hgb 12.0 L (12.9-16.9) g/dL Hct 37.2 L (37.5-50.1) % MCV 95.1 (83.0-100.0) fL MCH 30.7 (28.0-33.3) pg MCHC 32.3 (31.6-35.5) g/dL RDW 14.0 (11.5-14.5) % Plt Count 222 (140-400) K/mcL MPV 12.3 (9.4-12.4) fL Immature Gran % 1.4 (0-4) % Seg Neutrophils % 81.4 % Lymphocytes % 8.8 % Monocytes % 7.5 % Eosinophils % 0.5 % Basophils % 0.4 % Neutrophils # 16.4 H (1.6-8.9) K/mcL Lymphocytes # 1.8 (0.6-4.6) K/mcL Monocytes # 1.5 H (0.0-1.3) K/mcL Eosinophils # 0.1 (0.0-0.6) K/mcL Basophils # 0.1 (0.0-0.2) K/mcL PT (9.4-12.1) Seconds INR APTT (26.0-36.0) Seconds Sodium 136 (136-145) mEq/L Potassium 7.5 H* (3.5-5.1) mEq/L Chloride 99 (98-107) mEq/L Carbon Dioxide 12 L (23-29) mEq/L BUN > 130 H (8-23) mg/dL Creatinine 9.32 H (0.70-1.30) mg/dL Est GFR ( Amer) 7 L (> 60) Est GFR (Non-Af Amer) 6 L (> 60) BUN/Creatinine Ratio TNP Glucose 240 H (70-105) mg/dL POC Glucose (70-99) mg/dL Calculated Osmolality TNP Calcium 9.5 (8.6-10.3) mg/dL Magnesium 3.0 H (1.6-2.6) mg/dL Creatine Kinase 488 H (30-223) Units/L Troponin I 0.03 (< 0.04) ng/mL TSH 16.493 H (0.340-5.600) mcIU/mL Urine Color (Yellow) Urine Clarity (Clear) Urine pH (5.0-8.0) pH Units Ur Specific [place] (1.010-1.025) Urine Protein (Neg-Trace) mg/dL Urine Glucose (UA) (Normal) mg/dL Urine Ketones (Negative) mg/dL Urine Blood (Negative) Urine Nitrite (Negative) Urine Bilirubin (Negative) Urine Urobilinogen (Normal) mg/dL Ur Leukocyte Esterase (Negative) Urine Microscopic RBC (0-3) per hpf Urine Microscopic WBC (0-3) per hpf Ur Squamous Epith Cells (None-Few) per lpf Urine Bacteria (None-Few) per hpf Hyaline Casts (None-Few) per lpf Ur Culture Indicated? (NO) 03/15/18 03/15/18 03/15/18 Range/Units 18:27 18:27 19:51 WBC 14.2 H (4.3-11.1) K/mcL RBC 3.33 L (4.19-5.50) M/mcL Hgb 10.2 L D (12.9-16.9) g/dL Hct 31.2 L (37.5-50.1) % MCV 93.7 (83.0-100.0) fL MCH 30.6 (28.0-33.3) pg MCHC 32.7 (31.6-35.5) g/dL RDW 13.9 (11.5-14.5) % Plt Count 135 L (140-400) K/mcL MPV 12.3 (9.4-12.4) fL Immature Gran % 0.8 (0-4) % Seg Neutrophils % 76.3 % Lymphocytes % 13.5 % Monocytes % 8.1 % Eosinophils % 1.0 % Basophils % 0.3 % Neutrophils # 10.9 H (1.6-8.9) K/mcL Lymphocytes # 1.9 (0.6-4.6) K/mcL Monocytes # 1.2 (0.0-1.3) K/mcL Eosinophils # 0.1 (0.0-0.6) K/mcL Basophils # 0.0 (0.0-0.2) K/mcL PT 13.8 H (9.4-12.1) Seconds INR 1.3 APTT 34.6 (26.0-36.0) Seconds Sodium (136-145) mEq/L Potassium 7.3 H* (3.5-5.1) mEq/L Chloride (98-107) mEq/L Carbon Dioxide (23-29) mEq/L BUN (8-23) mg/dL Creatinine (0.70-1.30) mg/dL Est GFR ( Amer) (> 60) Est GFR (Non-Af Amer) (> 60) BUN/Creatinine Ratio Glucose (70-105) mg/dL POC Glucose (70-99) mg/dL Calculated Osmolality Calcium (8.6-10.3) mg/dL Magnesium (1.6-2.6) mg/dL Creatine Kinase (30-223) Units/L Troponin I (< 0.04) ng/mL TSH (0.340-5.600) mcIU/mL Urine Color (Yellow) Urine Clarity (Clear) Urine pH (5.0-8.0) pH Units Ur Specific [place] (1.010-1.025) Urine Protein (Neg-Trace) mg/dL Urine Glucose (UA) (Normal) mg/dL Urine Ketones (Negative) mg/dL Urine Blood (Negative) Urine Nitrite (Negative) Urine Bilirubin (Negative) Urine Urobilinogen (Normal) mg/dL Ur Leukocyte Esterase (Negative) Urine Microscopic RBC (0-3) per hpf Urine Microscopic WBC (0-3) per hpf Ur Squamous Epith Cells (None-Few) per lpf Urine Bacteria (None-Few) per hpf Hyaline Casts (None-Few) per lpf Ur Culture Indicated? (NO) Critical Care Time Critical Care Time: Yes Total Critical Care Time: 70 Attestation: Critical care performed: Time is exclusive of separately billable procedures. Time includes: direct patient care, patient reassessment, coordination of patient care, interpretation of data (laboratory data, radiology data, and respiratory data), review of patient's medical records, medical consultation and documentation of patient care. Procedures included in critical care time: Procedures excluded from critical care time: Attestation Statement - Attestation Attestation: I, Albino Huffman DO, examined this patient [id number] and my medical decision-making was reviewed with Mario Parsons PGY-1, Resident Physician. I agree with the documented findings, disposition and treatment plan as described except to the extent set forth below. Please see my progress notes for details. 72-year-old male presents emergency room by EMS for evaluation being found down at home. Patient lives at home by himself and was going to what is a smoothly take a bath last night when he fell someplace in his bed. Patient is unable to get up off the ground overnight. Daughter went to see him today and she found him on the ground and he is confused. Patient was hypothermic when EMS found him. Patient's temperature was 93. His vital signs remain stable to transport and his Accu-Chek and transfer was 238. Patient presentation is slightly somnolent. He does wake up and answer questions appropriately his pupils are equal round reactive there is no visible signs of trauma to the head and neck or the mouth at this time. Lungs show appropriate aeration with no auscultated wheezing or crackles at this time. Heart is regular. Abdomen soft nontender nondistended with no guarding no rigidity and no peritoneal-like symptoms on presentation. Patient has a left [id number] amputation. Patient has a normal-appearing right lower extremity with good pulses. Bilateral upper external pulses are stable. EKG was collected immediately on presentation patient has what appears to be a new right bundle branch block that is compared to previous EKG from 10/07/17. Repeat EKG was collected with concern of possible misplaced leads. Repeat EKG shows similar presentation. EKG was reviewed with the on-call president ergonomic consulting and they felt that it was a bundle branch block. No acute signs of specific changes at this point considering the hypothermia. Initial concern from our side of his at this is possibly hypothermic. Cardiology confirm that looks more to be other bundle branch at this time. Patient will require further medical intervention. A CT of the head chest x-ray labs including CBC chemistry liver function testing as well as urinalysis. CPK was. On secondary to potential downtime. EKG does not show any initial signs of hyperkalemia tissue deterioration this point. No acute signs of ST segment elevation. Patient does have potential for critical illness and will require further intervention management here in the emergency room. Patient has IV access obtained at this point for resuscitation will be started. See detailed documentation of physical exam, medical intervention, medical decision-making and disposition the resident physician's note. Patient has to appropriate IVs as well as fluid started this time considering his initial blood pressure on arrival here was 105 systolic and then dropped to 98 systolic. 1900 Lab contacted us about a critical high potassium is 7.5. Remainder the labs are critically elevated this point as well as an elevated BUN/creatinine greater than 130 a bicarbonate of less than 12. Patient also has a creatinine of 9.32. Consultations placed onto the on-call correspondence dictator Dr. Osborne. Recommended dialysis catheter being placed. Interventional radiology was contacted. greater than one hour at this time. Recommended attempt with a dialysis catheter being placed in the emergency room is comfortable. Clinically the patient does have concern for deterioration secondary to significantly elevated potassium and elevated even in the confusion. Patient does not have any acute signs of potassium related arrhythmia but they are EKG abnormalities. My concern for her transportation is that the patient may decompensate secondary to the presentation of this point. It was determined at that point the patient was potentially unstable for transport and required intervention. While interventional radiology has been contacted we will attempt to place the dialysis catheter. Central line was also attempted. Single attempt was made up the left internal jugular vein distribution with the patient has clamped down at this point secondary to what appears to be dehydration. That attempt was aborted the time of the right femoral central line was placed without any complication. All 3 lumem of the central lines aspirated appropriately. No complications noted.. After radiology interventional radiologist contacted. The dialysis catheter line was provided this in the emergency room. Single attempt was made at this time the dialysis catheter was placed in the right groin just superior to the previously placed central line. When we attempted aspirated back blood out of the dialysis catheter but is unable to be aspirated at the time. My concern is noted for volume depletion in clamp and the vessel secondary to the large diameter of the catheter but because of that mandated that interventional radiology come into to attempt a tunnel catheter. I am afraid that even with fluid resuscitation the femoral dialysis catheter will not be able to be utilized at this time. No complications were noted during the procedure. CT imaging was ordered at this time to confirm placement secondary to its inability to drive. Patient has remained hemodynamically stable. Repeat temperature is 96.8. T catheter placement to be confirmed Patient is stable hemodynamically stable he does answer questions and follow commands. Again, the attempts for vascular access for Mandated secondary to patient's potential critical illness as well as labile blood pressure and significantly abnormal labs. Second dose of calcium was given here to the patient emergency room along with the insulin dextrose albuterol and Kayexalate. Cefepime was also landed on secondary to attempt be made with vascular access with concern for contamination during the procedure. Vision is still stable. Interventional radiology to place tunnel catheter after CT is red and dialysis will be completed. Patient is critically ill and does have considerable concern for decompensation secondary to his critical illness. Patient may have considerable morbidity mortality in the hospital setting considering the presenting illness and symptoms. All times for critical management have been made here in the emergency room patient does required icu and close monitoring in the ICU setting. Hospitalist Dr. Gay and I reviewed the patient's presentation symptoms and a lengthy discussion about the medical intervention consultation to nephrology as well as interventional radiology the patient will be admitted for further management. We will continue to monitor in emergency room until transportation was completed. Possibly 70 minutes of critical care by the patient's treatment course at this time. 2044 Interventional radiology is at the bedside at this time. The dialysis catheter replaced appears to have kinked in the vessel. Unknown etiology to this at this point. Patient's blood pressure has become labile. We are ordering norepinephrine drip at this time and more fluid resuscitation. Patient will have volume repleted at this point. Disposition pending the intervention at this time. Patient is critically ill and could have potential for decompensation and possibly . No family is been here in the emergency room but the daughter did call and we did inform her of the patient's critical illness and need for emergent intervention. Patient's blood pressure is requiring pressure support at this time. Patient still wakes up and follows commands appropriately and answers questions but he is somnolent. He is protecting his airway. Pulse ox is been normal. Patient will be admitted once the medications intervention have been established in the emergency room. Repeat hemoglobin is 10.2. Patient has received us with 3 l of fluid some this could be delusional at this time. His baseline hemoglobin runs anywhere from 8- 10 units. Patient is otherwise still requiring some pressure support this time secondary to volume repletion. Repeat blood pressures in the emergency room around 115/60 and 124/59. Patient has maintained pulse ox and blood pressure now this time. He wakes up easily and follows commands. Patient will be sent onto the ICU for dialysis and continued management. Patient may require pulmonary intervention including BiPAP or intubation during this treatment course. Now he does not require it. The catheter and dialysis line were reviewed and established by the interventional radiologist Dr. oneida vega here in the emergency room. Patient is maintaining stable vital signs. Patient will be admitted for definitive management this time. Patient is leaving our emergency room stable but critically ill. IV line was confirmed by the interventional radiologist for appropriate use. Patient will be sent to the ICU for dialysis at this time. Temperature prior to going to the ICU is 97.8.
[2018-03-15 20:58] LABS: Basophils % 0.3 %; Eosinophils # 0.1 K/mcL (0.0-0.6); Hematocrit 31.2 % (37.5-50.1); Immature Granulocytes % 0.8 % (0-4); Lymphocytes # 1.9 K/mcL (0.6-4.6); Lymphocytes % 13.5 %; Mean Corpuscular HGB Conc 32.7 g/dL (31.6-35.5); Mean Corpuscular Hemoglobin 30.6 pg (28.0-33.3); Mean Corpuscular Volume 93.7 fL (83.0-100.0); Mean Platelet Volume 12.3 fL (9.4-12.4); Monocytes # 1.2 K/mcL (0.0-1.3); Monocytes % 8.1 %; Neutrophils # 10.9 K/mcL (1.6-8.9); Platelet Count 135 K/mcL (140-400); Red Blood Count 3.33 M/mcL (4.19-5.50); Red Cell Distribution Width 13.9 % (11.5-14.5); Segmented Neutrophils % 76.3 %
[2018-03-15 20:59] LABS: Hemoglobin 10.2 g/dL (12.9-16.9)
[2018-03-15] MEDS: Norepinephrine 4 MG in D5% in Water 250 ML IVC SCH (21:04)
--- NOTE | 2018-03-15 21:06 | Emergency Department Note ---
Disposition Clinical Impression: Altered mental status, Metabolic acidosis, Syncope and collapse, Hyperkalemia, Uremia, Dehydration, Rhabdomyolysis Acute kidney failure, unspecified Qualifiers: Acute renal failure type: unspecified Qualified Code(s): N17.9 - Acute kidney failure, unspecified Disposition: Admitted As Inpatient Condition: Critical Referrals: Chandan Fitzgerald MD [Primary Care Provider] - Forms: ED Satisfaction Letter Time of Disposition: 21:09 General Adult HPI - General Chief complaint: ED Fall Stated complaint: Fall/lathargic Time Seen by Provider: 03/15/18 16:48 Source: EMS Limitations: altered mental status - History of Present Illness HPI Narrative: This note is for the sole purpose of a procedure note for a CBC catheter as well as an HD catheter of the right femoral vein. Please see my colleagues note for history of present illness, review of systems, physical exam, medical decision-making and disposition. Pain Scale: 0 - Related Data Home Medications Medication Instructions Recorded Confirmed DULoxetine [Cymbalta] 60 mg PO DAILY 08/05/15 03/15/18 Docusate [Colace] 200 mg PO BID PRN 08/05/15 03/15/18 Donepezil [Aricept] 10 mg PO HS 08/05/15 03/15/18 Lactulose 10 gm PO DAILY PRN 08/05/15 03/15/18 Aspirin 81 mg PO DAILY 03/18/16 03/15/18 Metoprolol Tartrate [Lopressor] 50 mg PO BID 03/18/16 03/15/18 Furosemide [Lasix] 40 mg PO DAILY 07/30/16 03/15/18 Mirabegron [Myrbetriq] 50 mg PO DAILY 07/30/16 03/15/18 Fluticasone Propionate Nasal 50 mcg NS DAILY PRN 10/23/16 03/15/18 [Flonase] Loratadine [Allergy Relief] 10 mg PO DAILY 10/23/16 03/15/18 Amlodipine Besylate 10 mg PO DAILY 12/04/16 03/15/18 Cyclobenzaprine [Flexeril] 5 mg PO TID PRN 12/04/16 03/15/18 Famotidine [Pepcid] 20 mg PO BID 04/08/17 03/15/18 Atorvastatin [Lipitor] 40 mg PO HS 06/21/17 03/15/18 Clopidogrel [Plavix] 75 mg PO DAILY 06/21/17 03/15/18 Gabapentin [Neurontin] 100 mg PO BID 06/21/17 03/15/18 Levothyroxine [Synthroid] 175 mcg PO QAM 06/21/17 03/15/18 Lidocaine Patch [Lidoderm 5% patch] 1 each TP DAILY 06/21/17 03/15/18 Losartan Potassium [Cozaar] 100 mg PO DAILY 06/21/17 03/15/18 Baclofen [Lioresal] 10 mg PO TID 08/30/17 03/15/18 Insulin NPH Human Isophane 65 unit SQ BIDWM 08/30/17 03/15/18 [Novolin N] Insulin Regular, Human [Novolin R] 10 unit SQ TIDWM 08/30/17 03/15/18 Lisinopril [Zestril] 20 mg PO DAILY 03/15/18 03/15/18 Tizanidine HCl [Tizanidine HCl] 4 mg PO BID PRN 03/15/18 03/15/18 Previous Rx's Medication Instructions Recorded hydrALAZINE [HydrALAZINE] 10 mg PO BID #60 tablet 12/07/16 Ferrous Sulfate 325 mg PO BIDWM #30 tablet 04/19/17 Allergies Allergy/AdvReac Type Severity Reaction Status Date / Time adhesive tape Allergy Hives Verified 12/26/17 17:43 pregabalin [From Lyrica] Allergy Swelling Verified 12/26/17 17:43 of Lip/Tongue/Throat Sulfa (Sulfonamide Allergy PER PT Verified 12/26/17 17:43 Antibiotics) UNKNOWN REACTION Past Medical History - Past Medical History Medical history: Reports: diabetes, renal disease, hypertension, other, CVA, thyroid disease, cancer, syncope Surgical history: Reports: orthopedic, other, thyroidectomy, other, appendectomy Psychiatric history: Reports: no psych history, anxiety, depression - Social History Smoking Status: Never smoker Smokeless Tobacco Status: No Alcohol use: Reports: none Drug use: Reports: none Physical Exam - General Limitations: altered mental status General appearance: lethargic Course Course Narrative: Patient also had a right HD catheter line placement. Patient remained draped and cleaned from CVC placement. Using ultrasound guidance, the patient's right femoral vein was identified. A right HD catheter was prepared. Vein was cannulated and guidewire was noted to be within the vein on ultrasound. Catheter was ran over the guidewire. After placement of catheter, there was difficulty with aspiration of blood. A subsequent CT scan revealed that the HD Double backed onto itself within the right femoral vein. There is no extravasation noted. Line was sutured in place. Dressing in place. Vital Signs Temperature 94.1 F L 03/15/18 16:44 Pulse Rate 88 03/15/18 16:44 Respiratory Rate 20 03/15/18 16:44 Blood Pressure 94/57 03/15/18 16:44 O2 Sat by Pulse Oximetry 96 03/15/18 16:44 Temperature 96.8 F L 03/15/18 20:39 Pulse Rate 87 03/15/18 21:25 Respiratory Rate 18 03/15/18 21:25 Blood Pressure 115/55 03/15/18 21:25 O2 Sat by Pulse Oximetry 96 03/15/18 21:25 Oxygen Delivery Oxygen Delivery Room Air Procedures - Central Line Placement Right Femoral Central Line Inserted*: Yes Central Line Catheter Replacement*: Yes Central Line Insertion: emergent Consent Obtained: written consent Procedural Pause: verify patient name and date of , timeout performed per policy, [place] and assess the site, assemble equipment and verify supplies, perform hand hygiene Patient Placed on Monitor/Pulse Ox: Yes During the Procedure: clinician is wearing sterile gloves, cap, mask,& gown during insertion, sterile field and sterile technique are maintained, patient's face is covered with drape or mask and wearing a cap, everyone in room is wearing a mask Central Line Prep: Chlorhexidine scrub, sterile drapes applied Prep the Procedure Site: apply chloraprep to the skin using a back and forth scrubbing motion, apply chloraprep for 30 seconds (upper body), 1-2 min ( femoral sites), allow prep to dry, drape the patient with a full body drape Local Anesthetic: lidocaine 1%, with epi Ultrasound Used for Placement: Yes Central Line Lumen Inserted: triple Post Procedure: sutured in place, good blood return, all ports aspirated, flushed, capped, sterile dressing applied, guide wire removed and visualized Post Procedure X-Ray: tip of catheter in good position Patient Tolerated Procedure: well, no complications Complications: none Name of Clinician Inserting Central Line: Christina Clinician Assisting/Completing Checklist: Nathanael Date: 03/15/18 Time: 20:06 Medical Decision Making - Lab Data Result diagrams: 03/15/18 19:51 03/15/18 18:27 Lab Results 03/15/18 03/15/18 03/15/18 Range/Units 16:54 16:56 17:20 WBC (4.3-11.1) K/mcL RBC (4.19-5.50) M/mcL Hgb (12.9-16.9) g/dL Hct (37.5-50.1) % MCV (83.0-100.0) fL MCH (28.0-33.3) pg MCHC (31.6-35.5) g/dL RDW (11.5-14.5) % Plt Count (140-400) K/mcL MPV (9.4-12.4) fL Immature Gran % (0-4) % Seg Neutrophils % % Lymphocytes % % Monocytes % % Eosinophils % % Basophils % % Neutrophils # (1.6-8.9) K/mcL Lymphocytes # (0.6-4.6) K/mcL Monocytes # (0.0-1.3) K/mcL Eosinophils # (0.0-0.6) K/mcL Basophils # (0.0-0.2) K/mcL PT (9.4-12.1) Seconds INR APTT (26.0-36.0) Seconds Sodium (136-145) mEq/L Potassium (3.5-5.1) mEq/L Chloride (98-107) mEq/L Carbon Dioxide (23-29) mEq/L BUN (8-23) mg/dL Creatinine (0.70-1.30) mg/dL Est GFR ( Amer) (> 60) Est GFR (Non-Af Amer) (> 60) BUN/Creatinine Ratio Glucose (70-105) mg/dL POC Glucose 231 H 242 H (70-99) mg/dL Calculated Osmolality Calcium (8.6-10.3) mg/dL Magnesium (1.6-2.6) mg/dL Creatine Kinase (30-223) Units/L Troponin I (< 0.04) ng/mL TSH (0.340-5.600) mcIU/mL Urine Color Yellow (Yellow) Urine Clarity Clear (Clear) Urine pH 5.0 (5.0-8.0) pH Units Ur Specific M[place] 1.026 H (1.010-1.025) Urine Protein 30 H (Neg-Trace) mg/dL Urine Glucose (UA) 250 H (Normal) mg/dL Urine Ketones Negative (Negative) mg/dL Urine Blood Negative (Negative) Urine Nitrite Negative (Negative) Urine Bilirubin Small H (Negative) Urine Urobilinogen Normal (Normal) mg/dL Ur Leukocyte Esterase Negative (Negative) Urine Microscopic RBC 0-3 (0-3) per hpf Urine Microscopic WBC 0-3 (0-3) per hpf Ur Squamous Epith Cells Few (None-Few) per lpf Urine Bacteria None Seen (None-Few) per hpf Hyaline Casts None Seen (None-Few) per lpf Ur Culture Indicated? NO (NO) 03/15/18 03/15/18 03/15/18 Range/Units 17:37 17:37 17:37 WBC 20.2 H (4.3-11.1) K/mcL RBC 3.91 L (4.19-5.50) M/mcL Hgb 12.0 L (12.9-16.9) g/dL Hct 37.2 L (37.5-50.1) % MCV 95.1 (83.0-100.0) fL MCH 30.7 (28.0-33.3) pg MCHC 32.3 (31.6-35.5) g/dL RDW 14.0 (11.5-14.5) % Plt Count 222 (140-400) K/mcL MPV 12.3 (9.4-12.4) fL Immature Gran % 1.4 (0-4) % Seg Neutrophils % 81.4 % Lymphocytes % 8.8 % Monocytes % 7.5 % Eosinophils % 0.5 % Basophils % 0.4 % Neutrophils # 16.4 H (1.6-8.9) K/mcL Lymphocytes # 1.8 (0.6-4.6) K/mcL Monocytes # 1.5 H (0.0-1.3) K/mcL Eosinophils # 0.1 (0.0-0.6) K/mcL Basophils # 0.1 (0.0-0.2) K/mcL PT (9.4-12.1) Seconds INR APTT (26.0-36.0) Seconds Sodium 136 (136-145) mEq/L Potassium 7.5 H* (3.5-5.1) mEq/L Chloride 99 (98-107) mEq/L Carbon Dioxide 12 L (23-29) mEq/L BUN > 130 H (8-23) mg/dL Creatinine 9.32 H (0.70-1.30) mg/dL Est GFR ( Amer) 7 L (> 60) Est GFR (Non-Af Amer) 6 L (> 60) BUN/Creatinine Ratio TNP Glucose 240 H (70-105) mg/dL POC Glucose (70-99) mg/dL Calculated Osmolality TNP Calcium 9.5 (8.6-10.3) mg/dL Magnesium 3.0 H (1.6-2.6) mg/dL Creatine Kinase 488 H (30-223) Units/L Troponin I 0.03 (< 0.04) ng/mL TSH 16.493 H (0.340-5.600) mcIU/mL Urine Color (Yellow) Urine Clarity (Clear) Urine pH (5.0-8.0) pH Units Ur Specific Mccall (1.010-1.025) Urine Protein (Neg-Trace) mg/dL Urine Glucose (UA) (Normal) mg/dL Urine Ketones (Negative) mg/dL Urine Blood (Negative) Urine Nitrite (Negative) Urine Bilirubin (Negative) Urine Urobilinogen (Normal) mg/dL Ur Leukocyte Esterase (Negative) Urine Microscopic RBC (0-3) per hpf Urine Microscopic WBC (0-3) per hpf Ur Squamous Epith Cells (None-Few) per lpf Urine Bacteria (None-Few) per hpf Hyaline Casts (None-Few) per lpf Ur Culture Indicated? (NO) 03/15/18 03/15/18 03/15/18 Range/Units 18:27 18:27 19:51 WBC 14.2 H (4.3-11.1) K/mcL RBC 3.33 L (4.19-5.50) M/mcL Hgb 10.2 L D (12.9-16.9) g/dL Hct 31.2 L (37.5-50.1) % MCV 93.7 (83.0-100.0) fL MCH 30.6 (28.0-33.3) pg MCHC 32.7 (31.6-35.5) g/dL RDW 13.9 (11.5-14.5) % Plt Count 135 L (140-400) K/mcL MPV 12.3 (9.4-12.4) fL Immature Gran % 0.8 (0-4) % Seg Neutrophils % 76.3 % Lymphocytes % 13.5 % Monocytes % 8.1 % Eosinophils % 1.0 % Basophils % 0.3 % Neutrophils # 10.9 H (1.6-8.9) K/mcL Lymphocytes # 1.9 (0.6-4.6) K/mcL Monocytes # 1.2 (0.0-1.3) K/mcL Eosinophils # 0.1 (0.0-0.6) K/mcL Basophils # 0.0 (0.0-0.2) K/mcL PT 13.8 H (9.4-12.1) Seconds INR 1.3 APTT 34.6 (26.0-36.0) Seconds Sodium (136-145) mEq/L Potassium 7.3 H* (3.5-5.1) mEq/L Chloride (98-107) mEq/L Carbon Dioxide (23-29) mEq/L BUN (8-23) mg/dL Creatinine (0.70-1.30) mg/dL Est GFR ( Amer) (> 60) Est GFR (Non-Af Amer) (> 60) BUN/Creatinine Ratio Glucose (70-105) mg/dL POC Glucose (70-99) mg/dL Calculated Osmolality Calcium (8.6-10.3) mg/dL Magnesium (1.6-2.6) mg/dL Creatine Kinase (30-223) Units/L Troponin I (< 0.04) ng/mL TSH (0.340-5.600) mcIU/mL Urine Color (Yellow) Urine Clarity (Clear) Urine pH (5.0-8.0) pH Units Ur Specific Mccall (1.010-1.025) Urine Protein (Neg-Trace) mg/dL Urine Glucose (UA) (Normal) mg/dL Urine Ketones (Negative) mg/dL Urine Blood (Negative) Urine Nitrite (Negative) Urine Bilirubin (Negative) Urine Urobilinogen (Normal) mg/dL Ur Leukocyte Esterase (Negative) Urine Microscopic RBC (0-3) per hpf Urine Microscopic WBC (0-3) per hpf Ur Squamous Epith Cells (None-Few) per lpf Urine Bacteria (None-Few) per hpf Hyaline Casts (None-Few) per lpf Ur Culture Indicated? (NO) Attestation Statement - Attestation Attestation: I, Albino Huffman DO, examined this patient [id number] and my medical decision-making was reviewed with Darrel Vasquez DO, Resident Physician. I agree with the documented findings, disposition and treatment plan as described except to the extent set forth below. Please see my progress notes for details. I strictly present during the procedures and evaluation. Direct visualization of the procedure being completed. Resident completed without any Copt location. Please see the detailed review the note.
[2018-03-15] MEDS ORDERED: *HR* Heparin 5,000 UNIT/ML VIAL ONE (21:23)
--- NOTE | 2018-03-15 21:31 | IR Procedure Note ---
Date of procedure: 03/15/18 Consent Obtained: Written consent Timeout: Correct patient and procedure verified, Correct site verified, Time out performed, Skin prep completed Indications: renal failure Procedure Performed: Temp HDC exchange Was there an stonecutter assistant present: No Site/Technique: rt femoral Results/Findings: exchanged kinked line Estimated blood loss (cc): 4 Complications: None; Tolerated procedure well Post Procedure Treatment Plan: KUB Specimen: none
[2018-03-15] MEDS ORDERED: 0.9 % Sodium Chloride 1,000 ML ONE (21:33)
[2018-03-15 21:43] LABS: Blood Urea Nitrogen > 130 mg/dL (8-23); Calcium 8.8 mg/dL (8.6-10.3); Carbon Dioxide 16 mEq/L (23-29); Chloride 104 mEq/L (98-107); Glucose 155 mg/dL (70-105); Potassium 6.1 mEq/L (3.5-5.1); Sodium 140 mEq/L (136-145); eGFR For African Americans 8 (> 60); eGFR For Non-African Americans 6 (> 60)
[2018-03-15 21:45] LABS: Hepatitis B Surface Antibody 0.18 mIU/mL; Hepatitis B Surface Antigen Nonreactive (Nonreactive)
[2018-03-15] MEDS ORDERED: Acetaminophen 325 MG TABLET PO PRN (23:23)
[2018-03-15] MEDS ORDERED: Naloxone 0.4 MG/ML INJ IVP PRN (23:23)
[2018-03-15] MEDS ORDERED: Fluticasone Propionate Nasal 50 MCG/SPRAY BOTTLE NS PRN (23:25)
[2018-03-15] MEDS ORDERED: D5% in Water 1,000 ML IVC PRN (23:27)
[2018-03-15] MEDS ORDERED: Dextrose Gel 15 GM/37.5 ML TUBE PO PRN ×2 (23:27)
[2018-03-15] MEDS ORDERED: *HR* Dextrose 50 % in Water (Syg) 50 ML SYRINGE IVP PRN (23:27)
--- NOTE | 2018-03-15 23:31 | Internal Med History&Physical ---
Date of Encounter: 03/15/18 Time of Encounter: 23:30 Internal Medicine - H&P: HPI Chief complaint: Altered mental status Admitted From: Emergency Dept Plans for Post Hospital Care: Transfer Care Home Facility History of present illness: Mr. Borges is a 72 year old male with history of hypertension, diabetes, chronic kidney disease, chronic pain on pain pump, was brought in by EMS with altered mental status. Patient is currently unable to provide any history, which is obtained from review of ER records. Patient apparently lives alone, fell down last night and was unable to get up. His daughter went to check on him today, found him on the with confusion and disorientation. Patient is noted to be somnolent, opens his eyes briefly and is able to tell his name but quickly falls back asleep. He was noted to be hypothermic in the ER. Labs revealed significant acute on chronic renal failure, hyperkalemia, metabolic acidosis. Past Med Surg Social Fam HX - Past Medical History Source: old records reviewed Medical history: diabetes, renal disease, hypertension, other, CVA, thyroid disease, cancer, syncope Psychiatric history: anxiety, depression - Past Surgical History Surgical History: orthopedic, other, thyroidectomy, other (cannot be obtained due to mental status), appendectomy - Social History Smoking Status: Never smoker Smokeless Tobacco Status: No Alcohol use: none Drug use: none Occupational status: retired Current living situation: Home - Independent Activity Level: Wheelchair bound - Family History Mother Living Status: Hx Family Cardiac Disorders: Yes Father Living Status: Hx Family Cardiac Disorders: Yes Internal Medicine - H&P: Meds DULoxetine [Cymbalta] 60 mg PO DAILY 08/05/15 [History] Docusate [Colace] 200 mg PO BID PRN 08/05/15 [History] Donepezil [Aricept] 10 mg PO HS 08/05/15 [History] Lactulose 10 gm PO DAILY PRN 08/05/15 [History] Aspirin 81 mg PO DAILY 03/18/16 [History] Metoprolol Tartrate [Lopressor] 50 mg PO BID 03/18/16 [History] Furosemide [Lasix] 40 mg PO DAILY 07/30/16 [History] Mirabegron [Myrbetriq] 50 mg PO DAILY 07/30/16 [History] Fluticasone Propionate Nasal [Flonase] 50 mcg NS DAILY PRN 10/23/16 [History] Loratadine [Allergy Relief] 10 mg PO DAILY 10/23/16 [History] Amlodipine Besylate 10 mg PO DAILY 12/04/16 [History] Cyclobenzaprine [Flexeril] 5 mg PO TID PRN 12/04/16 [History] hydrALAZINE [HydrALAZINE] 10 mg PO BID #60 tablet 12/07/16 [Rx] Famotidine [Pepcid] 20 mg PO BID 04/08/17 [History] Ferrous Sulfate 325 mg PO BIDWM #30 tablet 04/19/17 [Rx] Atorvastatin [Lipitor] 40 mg PO HS 06/21/17 [History] Clopidogrel [Plavix] 75 mg PO DAILY 06/21/17 [History] Gabapentin [Neurontin] 100 mg PO BID 06/21/17 [History] Levothyroxine [Synthroid] 175 mcg PO QAM 06/21/17 [History] Lidocaine Patch [Lidoderm 5% patch] 1 each TP DAILY 06/21/17 [History] Losartan Potassium [Cozaar] 100 mg PO DAILY 06/21/17 [History] Baclofen [Lioresal] 10 mg PO TID 08/30/17 [History] Insulin NPH Human Isophane [Novolin N] 65 unit SQ BIDWM 08/30/17 [History] Insulin Regular, Human [Novolin R] 10 unit SQ TIDWM 08/30/17 [History] Lisinopril [Zestril] 20 mg PO DAILY 03/15/18 [History] Tizanidine HCl [Tizanidine HCl] 4 mg PO BID PRN 03/15/18 [History] 3 Allergy/AdvReac Type Severity Reaction Status Date / Time adhesive tape Allergy Hives Verified 12/26/17 17:43 pregabalin [From Lyrica] Allergy Swelling Verified 12/26/17 17:43 of Lip/Tongue/Throat Sulfa (Sulfonamide Allergy PER PT Verified 12/26/17 17:43 Antibiotics) UNKNOWN REACTION All Systems PM: A 10-system review of systems was performed and is negative for pertinent findings except as documented above in the HPI. - Constitutional Constitutional: weakness, no chills, no fever(s), no night sweats - EENT Eyes: no change in vision, no discharge, no pain, no photophobia Ears: no ear discharge, no ear pain, no tinnitus Nose, mouth and throat: no dysphagia, no nasal discharge, no neck pain, no sore throat - Cardiovascular Cardiovascular ROS IM: no chest pain, no diaphoresis, no dyspnea, no lightheadedness, no palpitations, no syncope - Respiratory Respiratory: no cough, no dyspnea, no wheezing, no excessive phlegm production - Gastrointestinal Gastrointestinal: no abdominal pain, no diarrhea, no hematemesis, no hematochezia, no melena, no nausea, no vomiting - Musculoskeletal Musculoskeletal ROS IM: muscle weakness, no numbness, no tingling - Integumentary Integumentary IM: no rash, no unusual bruising - Neurological Neurological ROS: behavioral changes, confusion, frequent falls - Hematologic/Lymphatic Hematologic/Lymphatic: no easy bruising - Constitutional Vitals: Temp Pulse Resp BP Pulse Ox 98.1 F 89 16 125/66 96 03/15/18 22:26 03/15/18 22:26 03/15/18 22:26 03/15/18 22:26 03/15/18 22:26 General appearance: Present: A&O X 0 (somnolent, briefly opens eyes but falls asleep). Absent: answers questions appropriately - Respiratory Respiratory exam: Present: CTAB (coarse breath sounds B/L anterolaterally). Absent: accessory muscle use, rales, rhonchi, wheezes - Cardiovascular Cardiovascular exam: Present: RRR, +S1, +S2. Absent: diastolic murmur, gallop, rubs, systolic murmur - GI/Abdominal GI/Abdominal exam: Present: normal bowel sounds, soft (obese), no peritoneal signs. Absent: distended, tenderness - Extremities Exam Extremities exam: Present: warm, radial pulses palpable and symmetrical. Absent : calf tenderness, cyanotic, pedal edema Additional comments: s/p left AKA, with frequent muscle twitches - Neurological Exam Neurological exam: Present: altered, no focal deficits (further exam cannot be completed due to mental status changes). Absent: pronater drift, facial droop, speech deficit - Skin Skin exam: Present: dry, intact Internal Med - H&P Results - Labs CBC & Chem 7: 03/15/18 19:51 03/15/18 19:42 - EKG Data -: EKG Interpreted by Myself EKG shows normal: sinus rhythm Rate: normal - Assessment and plan (1) Rhabdomyolysis Current Visit: Yes Status: Acute Assessment and plan: Patient was noted to have a mechanical fall last night, noted to be on the ground this morning. Creatinine kinase noted to be elevated at 488. Gentle IV hydration, monitor closely. Receiving dialysis for acute kidney injury. Qualifiers: Rhabdomyolysis type: non-traumatic Qualified Code(s): M62.82 - Rhabdomyolysis (2) Metabolic acidosis Current Visit: Yes Status: Acute Assessment and plan: Metabolic acidosis likely due to acute renal failure. Bicarbonate drip has been started in the emergency room, will discontinue after hemodialysis. (3) Encephalopathy acute Current Visit: Yes Status: Acute Assessment and plan: Metabolic encephalopathy due to uremia. Expect recovery in mental status with dialysis and improvement in electrolytes. Supportive care and fall precautions. (4) Hyperkalemia Current Visit: Yes Status: Acute Assessment and plan: Received calcium gluconate and Kayexalate in the emergency room. Serum potassium was slightly improved. Expect to improve with dialysis. (5) Acute kidney injury superimposed on CKD Current Visit: Yes Status: Acute Assessment and plan: Baseline serum creatinine noted to be around 1.7. Patient presented with uremia with significantly elevated BUN greater than 130 and creatinine 9.2, associated with metabolic acidosis, uremic encephalopathy, hyperkalemia and EKG changes. Likely due to rhabdomyolysis, dehydration in the setting of diuretics/ARB/RAJENDRA inhibitor, along with hypotension. Nephrology was emergently consulted by ER, patient received right femoral CVC and right femoral temporary dialysis catheter in the emergency room. Plan is for urgent dialysis. High risk for complications. Continue telemetry, repeat BMP and electrolytes postdialysis. EKG was initially abnormal with RBBB changes, repeat EKG is NSR; (6) Anxiety and depression Current Visit: Yes Status: Chronic (7) Chronic pain Current Visit: Yes Status: Chronic Assessment and plan: Will hold narcotics and sedatives at this time. Qualifiers: Chronic pain type: chronic pain syndrome Qualified Code(s): G89.4 - Chronic pain syndrome (8) Constipation Current Visit: Yes Status: Chronic Qualifiers: Constipation type: drug induced constipation Qualified Code(s): K59.03 - Drug induced constipation (9) CAD (coronary artery disease) Current Visit: Yes Status: Chronic Qualifiers: Coronary Disease-Associated Artery/Lesion type: [place] artery [place] vs. transplanted heart: [place] heart Associated angina: without angina Qualified Code(s): I25.10 - Atherosclerotic heart disease of [place] coronary artery without angina pectoris (10) Diabetes mellitus Current Visit: Yes Status: Chronic Assessment and plan: Blood sugars noted to be elevated. Start Accu-Chek blood glucose monitoring with sliding scale insulin as needed. Currently nothing by mouth. Qualifiers: Diabetes mellitus type: type 2 Diabetes mellitus fdc insulin use: without fdc use Diabetes mellitus complication status: with kidney complications Diabetes mellitus complication detail: with chronic kidney disease Chronic kidney disease stage: stage 3 (moderate) Qualified Code(s): E11.22 - Type 2 diabetes mellitus with diabetic chronic kidney disease; N18.3 - Chronic kidney disease, stage 3 (moderate); N18.3 - Chronic kidney disease, stage 3 (moderate) (11) Hypertension Current Visit: Yes Status: Chronic Assessment and plan: Hold antihypertensives for now due to hypotension and shock, currently requiring vasopressor support. Qualifiers: Hypertension type: essential hypertension Qualified Code(s): I10 - Essential (primary) hypertension (12) Hypothyroidism Current Visit: Yes Status: Chronic Assessment and plan: TSH noted to be elevated at 16.5. Check free T4 and free T3. Continue levothyroxine and increase dose as needed. Qualifiers: Hypothyroidism type: unspecified Qualified Code(s): E03.9 - Hypothyroidism , unspecified - Time Spent With Patient Total time spent is greater than 50% in coordination of care (as documented) at patient's floor/unit and/or counseling patient:
[2018-03-15 23:43] LABS: ABG Base Excess -7 mEq/L (-2 to 3); ABG HCO3 19 mEq/L (21-27); ABG Oxygen Saturation 96 % (95-98); ABG PCO2 36 mmHg (35-45); ABG PH 7.32 pH Units (7.32-7.45); ABG PO2 85 mmHg (85-104); ABG TCO2 20 mEq/L (20-26)
[2018-03-16] MEDS: Insulin LISPRO 300 UNITS/3 ML VIAL SQ SCH ×5 (00:30→23:14)
[2018-03-16] MEDS: Norepinephrine 4 MG in D5% in Water 250 ML IVC SCH ×4 (02:39→18:16)
[2018-03-16 05:49] LABS: Basophils # 0.1 K/mcL (0.0-0.2); Basophils % 0.3 %; Eosinophils # 0.2 K/mcL (0.0-0.6); Eosinophils % 1.5 %; Hematocrit 31.5 % (37.5-50.1); Hemoglobin 10.4 g/dL (12.9-16.9); Immature Granulocytes % 0.7 % (0-4); Lymphocytes # 1.2 K/mcL (0.6-4.6); Lymphocytes % 7.8 %; Mean Corpuscular Hemoglobin 30.6 pg (28.0-33.3); Mean Corpuscular Volume 92.6 fL (83.0-100.0); Mean Platelet Volume 11.4 fL (9.4-12.4); Monocytes # 1.3 K/mcL (0.0-1.3); Monocytes % 8.6 %; Neutrophils # 12.2 K/mcL (1.6-8.9); Platelet Count 137 K/mcL (140-400); Red Cell Distribution Width 13.9 % (11.5-14.5); Segmented Neutrophils % 81.1 %
[2018-03-16] MEDS: *HR* Heparin 5,000 UNIT/ML VIAL SQ SCH ×2 (06:01→18:10)
[2018-03-16 06:10] LABS: Troponin I < 0.03 ng/mL (< 0.04)
[2018-03-16 06:30] LABS: BUN/Creatinine Ratio 17 (6-26); Blood Urea Nitrogen 75 mg/dL (8-23); Calcium 8.8 mg/dL (8.6-10.3); Carbon Dioxide 20 mEq/L (23-29); Chloride 103 mEq/L (98-107); Glucose 277 mg/dL (70-105); Magnesium 2.1 mg/dL (1.6-2.6); Osmolality,Calculated 322 (280-300); Potassium 4.5 mEq/L (3.5-5.1); Sodium 140 mEq/L (136-145); Triiodothyronine (T3) Free 2.67 pg/mL (2.50-3.90); eGFR For African Americans 16 (> 60); eGFR For Non-African Americans 14 (> 60)
[2018-03-16] MEDS ORDERED: 0.9 % Sodium Chloride 1,000 ML IVC SCH (08:00)
[2018-03-16 08:28] LABS: ABG Base Excess -2 mEq/L (-2 to 3); ABG HCO3 22 mEq/L (21-27); ABG Oxygen Saturation 97 % (95-98); ABG PCO2 32 mmHg (35-45); ABG PH 7.45 pH Units (7.32-7.45); ABG PO2 85 mmHg (85-104); ABG TCO2 23 mEq/L (20-26)
--- NOTE | 2018-03-16 08:57 | Nephrology Consult Note ---
Date of Encounter: 03/16/18 Time of Encounter: 08:10 Assessment and Plan (1) Acute kidney injury superimposed on CKD Current Visit: Yes Status: Acute THOMAS in setting of hypotension, dehydration in setting of diuretic, ACEI, rabdo superimposed on CKD 3 in setting of diabetic nephropathy, baseline creat 1.3- 1.6. HD yesterday. Creat now 4.35, documented urine output 975cc. No immediate need for HD today. Will obtain Renal US. Avoid nephrotoxins, I&O. Will continue to monitor. (2) Altered mental status Current Visit: Yes Status: Acute Qualifiers: Altered mental status type: unspecified Qualified Code(s): R41.82 - Altered mental status, unspecified (3) Hyperkalemia Current Visit: Yes Status: Acute (4) Metabolic acidosis Current Visit: Yes Status: Acute (5) Rhabdomyolysis Current Visit: Yes Status: Acute Qualifiers: Rhabdomyolysis type: non-traumatic Qualified Code(s): M62.82 - Rhabdomyolysis History of Present Illness - Reason for Consult Consult date: 03/16/18 Acute Kidney Injury - History of Present Illness Mr. Borges is a 72 year old male who presented to the ER yesterday. He was found by daughter on bathroom floor. On presentation mental status altered. hypothermic 93 degrees, daughter present at that time states patient had complained of chest pain earlier in week. glucose 236. Creat 9.32, K 7.5, BUN > 130, Bicarb 12, WBC 20.2, Hgb 12, CK 488, TSH >16. Patient was fluid resuscitated, warmed. Temp increasing to 96.8. Dr. Davis consulted, dialysis catheter placed by IR and patient was dialyzed. Head CT- no acute process. EKG was initially abnormal with RBBB changes, repeat EKG is NSR. Today creat 4.35, K 4.5, Co2 20, BUN 75 WBC 15.1, Hgb 10.4. Urine output since midnight 975 cc. At time of consult patient is in ICU, room air, moving about in bed, opens eyes when name called however does not focus or track. Nonvocal. One pressor infusing. Lab present, drawing blood cultures. No family present, therefore, HPI obtained from prior notes. Other PMH- hypertension, diabetes, hypertension, CVA, chronic kidney disease in setting of diabetic nephropathy, baseline creat 1.3-1.6. Patient known to service following consult in April 2017 for similar situation of fall/syncope, and mild THOMAS. Home meds show Lasix and ACEI. No NSAID 's listed. Past Med Surg Social Fam HX - Past Medical History Medical history: diabetes, renal disease, hypertension, other, CVA, thyroid disease, cancer, syncope Psychiatric history: anxiety, depression - Past Surgical History Surgical History: orthopedic, other, thyroidectomy, other (cannot be obtained due to mental status), appendectomy - Social History Smoking Status: Never smoker Smokeless Tobacco Status: No Alcohol use: none Drug use: none - Family History Mother Living Status: Hx Family Cardiac Disorders: Yes Father Living Status: Hx Family Cardiac Disorders: Yes Medications and Allergies DULoxetine [Cymbalta] 60 mg PO DAILY 08/05/15 [History] Docusate [Colace] 200 mg PO BID PRN 08/05/15 [History] Donepezil [Aricept] 10 mg PO HS 08/05/15 [History] Lactulose 10 gm PO DAILY PRN 08/05/15 [History] Aspirin 81 mg PO DAILY 03/18/16 [History] Metoprolol Tartrate [Lopressor] 50 mg PO BID 03/18/16 [History] Furosemide [Lasix] 40 mg PO DAILY 07/30/16 [History] Mirabegron [Myrbetriq] 50 mg PO DAILY 07/30/16 [History] Fluticasone Propionate Nasal [Flonase] 50 mcg NS DAILY PRN 10/23/16 [History] Loratadine [Allergy Relief] 10 mg PO DAILY 10/23/16 [History] Amlodipine Besylate 10 mg PO DAILY 12/04/16 [History] Cyclobenzaprine [Flexeril] 5 mg PO TID PRN 12/04/16 [History] hydrALAZINE [HydrALAZINE] 10 mg PO BID #60 tablet 12/07/16 [Rx] Famotidine [Pepcid] 20 mg PO BID 04/08/17 [History] Ferrous Sulfate 325 mg PO BIDWM #30 tablet 04/19/17 [Rx] Atorvastatin [Lipitor] 40 mg PO HS 06/21/17 [History] Clopidogrel [Plavix] 75 mg PO DAILY 06/21/17 [History] Gabapentin [Neurontin] 100 mg PO BID 06/21/17 [History] Levothyroxine [Synthroid] 175 mcg PO QAM 06/21/17 [History] Lidocaine Patch [Lidoderm 5% patch] 1 each TP DAILY 06/21/17 [History] Losartan Potassium [Cozaar] 100 mg PO DAILY 06/21/17 [History] Baclofen [Lioresal] 10 mg PO TID 08/30/17 [History] Insulin NPH Human Isophane [Novolin N] 65 unit SQ BIDWM 08/30/17 [History] Insulin Regular, Human [Novolin R] 10 unit SQ TIDWM 08/30/17 [History] Lisinopril [Zestril] 20 mg PO DAILY 03/15/18 [History] Tizanidine HCl [Tizanidine HCl] 4 mg PO BID PRN 03/15/18 [History] 3 Allergy/AdvReac Type Severity Reaction Status Date / Time adhesive tape Allergy Hives Verified 12/26/17 17:43 pregabalin [From Lyrica] Allergy Swelling Verified 12/26/17 17:43 of Lip/Tongue/Throat Sulfa (Sulfonamide Allergy PER PT Verified 12/26/17 17:43 Antibiotics) UNKNOWN REACTION Review of Systems All Systems: reviewed and no additional remarkable complaints except as stated Exam - Vital Signs Vital signs: Initial Vital Signs Temp Pulse Resp BP Pulse Ox 94.1 F L 88 20 94/57 96 03/15/18 16:44 03/15/18 16:44 03/15/18 16:44 03/15/18 16:44 03/15/18 16:44 Vital Signs - Last 8 Hours Temp Pulse Resp BP Pulse Ox 03/16/18 08:00 98.6 F 03/16/18 07:30 105 18 116/50 97 03/16/18 06:00 104 16 102/56 97 03/16/18 05:00 110 16 101/64 97 03/16/18 03:45 99 14 110/44 97 03/16/18 03:00 92 14 125/51 96 03/16/18 02:35 98.0 F 20 150/53 03/16/18 02:30 97/68 03/16/18 02:15 89/48 03/16/18 02:00 92 16 108/55 97 03/16/18 01:45 101/51 03/16/18 01:30 120/52 03/16/18 01:15 94/50 03/16/18 01:00 85 16 114/54 97 03/16/18 00:45 136/56 Intake and Output 03/15/18 03/16/18 03/16/18 23:59 07:59 15:59 Intake Total 1300 / 1660 508 / 508 Output Total 300 / 300 1225 / 1225 500 / 500 Balance 1000 / 1360 -717 / -717 -500 / -500 Intake: IV Fluids 700 / 700 508 / 508 0.9 % Sodium Chloride 1,000 ML 700 / 700 @ 125 mls/hr IVC .Q8H MARTINEZ Rx#: [id number] Levophed 4 MG In Dextrose 5% 508 / 508 250 ML @ 5 MCG/MIN 19.05 mls/hr IVC CONT MARTINEZ Rx#:[id number] Oral 0 / 0 Intake, Rinseback and Flushes 600 / 600 Output: Urine 150 / 150 Total Dialysis (HD) Output 600 / 600 Catheter 300 / 300 475 / 475 500 / 500 Other: Stool Size Moderate Stool Consistency liquid Stool Color Black Blood Glucose* 279 Hemodialysis Net Fluid Removed 0 0 (mL) - General Appearance General appearance: well-developed, well-nourished, appears started age, obese EENT: mucous membranes moist Respiratory: rhonchi Cardiology: edema, regular rhythm Additional Comments: trace pitting LE Gastrointestinal: hypoactive bowel sounds Integumentary: warm and dry Results - Lab Results 03/16/18 05:37 03/16/18 05:37 Most recent lab results ABG pH 7.45 pH Units (7.32-7.45) 03/16/18 08:22 ABG pCO2 32 mmHg (35-45) L 03/16/18 08:22 ABG pO2 85 mmHg (85-104) 03/16/18 08:22 ABG HCO3 22 mEq/L (21-27) 03/16/18 08:22 ABG O2 Saturation 97 % (95-98) 03/16/18 08:22 Calcium 8.8 mg/dL (8.6-10.3) 03/16/18 05:37 Magnesium 2.1 mg/dL (1.6-2.6) 03/16/18 05:37 Consult Discharge Plan - Plan Referrals: Chandan Fitzgerald MD [Primary Care Provider] -
[2018-03-16] MEDS ORDERED: Vancomycin 1 EACH in EMPTY BAG 1 EACH IVPB SCH (09:00)
[2018-03-16] MEDS: Insulin DETEMIR 100 UNIT/ML X5UNITS SQ SCH ×2 (09:34→20:31)
[2018-03-16] MEDS: Aspirin 81 MG TAB.CHEW PO SCH (09:36)
--- NOTE | 2018-03-16 10:04 | Cardiology Consult Note ---
Date of Encounter: 03/16/18 Time of Encounter: 10:02 Assessment and Plan (1) Acute electrocardiogram changes Current Visit: Yes Status: Acute Patient presented with a right bundle branch block that has subsequently resolved. Given marked acute metabolic derangements including hyperkalemia and metabolic acidosis, this is likely the underlying cause. Now that labs have improved, ECG findings have normalized and is more similar to ECG from . Troponins negative x3. No concerning dysrhythmia on telemetry. Does not appear to be an acute cardiac issue contributing to this patient's presentation. 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 At this time, we will sign off. Please call with questions. Thank you for the consult. Discussion w patient/family: The assessment and plan as outlined above was discussed with the patient and/or family members who expressed understanding and agreement. All questions were answered. Thank you for involving us in the care of your patient. Please call with any questions. History of Present Illness Consult date: 03/16/18 Requesting physician: Mario Moore Consult reason: ECG changes Chief complaint: Found down with AMS History of present illness: Mr. Borges is a 72 year old male who was found down on the bathroom floor by patient's daughter with altered mental status. He was hypothermic in the ER with ARF, hyperkalemia and metabolic acidosis. At the bedside, the patient is arousable but not oriented, minimally conversant and inappropriate in thought process. Majority of history taking was from medical notes. Past Med Surg Social Fam HX - Past Medical History Source: old records reviewed Medical history: diabetes, renal disease, hypertension, other, CVA, thyroid disease, cancer, syncope Psychiatric history: anxiety, depression - Past Surgical History Surgical History: orthopedic, other, thyroidectomy, other (cannot be obtained due to mental status), appendectomy - Social History Smoking Status: Never smoker Smokeless Tobacco Status: No Alcohol use: none Drug use: none - Family History Mother Living Status: Hx Family Cardiac Disorders: Yes Father Living Status: Hx Family Cardiac Disorders: Yes Medications and Allergies DULoxetine [Cymbalta] 60 mg PO DAILY 08/05/15 [History] Docusate [Colace] 200 mg PO BID PRN 08/05/15 [History] Donepezil [Aricept] 10 mg PO HS 08/05/15 [History] Lactulose 10 gm PO DAILY PRN 08/05/15 [History] Aspirin 81 mg PO DAILY 03/18/16 [History] Metoprolol Tartrate [Lopressor] 50 mg PO BID 03/18/16 [History] Furosemide [Lasix] 40 mg PO DAILY 07/30/16 [History] Mirabegron [Myrbetriq] 50 mg PO DAILY 07/30/16 [History] Fluticasone Propionate Nasal [Flonase] 50 mcg NS DAILY PRN 10/23/16 [History] Loratadine [Allergy Relief] 10 mg PO DAILY 10/23/16 [History] Amlodipine Besylate 10 mg PO DAILY 12/04/16 [History] Cyclobenzaprine [Flexeril] 5 mg PO TID PRN 12/04/16 [History] hydrALAZINE [HydrALAZINE] 10 mg PO BID #60 tablet 12/07/16 [Rx] Famotidine [Pepcid] 20 mg PO BID 04/08/17 [History] Ferrous Sulfate 325 mg PO BIDWM #30 tablet 04/19/17 [Rx] Atorvastatin [Lipitor] 40 mg PO HS 06/21/17 [History] Clopidogrel [Plavix] 75 mg PO DAILY 06/21/17 [History] Gabapentin [Neurontin] 100 mg PO BID 06/21/17 [History] Levothyroxine [Synthroid] 175 mcg PO QAM 06/21/17 [History] Lidocaine Patch [Lidoderm 5% patch] 1 each TP DAILY 06/21/17 [History] Losartan Potassium [Cozaar] 100 mg PO DAILY 06/21/17 [History] Baclofen [Lioresal] 10 mg PO TID 08/30/17 [History] Insulin NPH Human Isophane [Novolin N] 65 unit SQ BIDWM 08/30/17 [History] Insulin Regular, Human [Novolin R] 10 unit SQ TIDWM 08/30/17 [History] Lisinopril [Zestril] 20 mg PO DAILY 03/15/18 [History] Tizanidine HCl [Tizanidine HCl] 4 mg PO BID PRN 03/15/18 [History] 3 Allergy/AdvReac Type Severity Reaction Status Date / Time adhesive tape Allergy Hives Verified 12/26/17 17:43 pregabalin [From Lyrica] Allergy Swelling Verified 12/26/17 17:43 of Lip/Tongue/Throat Sulfa (Sulfonamide Allergy PER PT Verified 12/26/17 17:43 Antibiotics) UNKNOWN REACTION ROS unobtainable: due to mental status All Systems Review: The remainder of the systems were reviewed and are negative Physical Examination Vital Signs, Last 4 Hours Temp Pulse Resp BP Pulse Ox 03/16/18 08:30 107 19 95/57 95 03/16/18 08:00 98.6 F 03/16/18 07:30 105 18 116/50 97 General: Other (minimally conversant, not oriented) HEENT: Atraumatic, Other (mucus membranes dry) Cardiac: Reg Rate and Rhythm, Normal S1 and S2, No Murmur, Other (heart exam somewhat limited by patient - mumbling during exam) Lungs: Other (poor inspiratory effort, no apparent wheeze rhonchi or rales) Neuro: Other (alert, not oriented, no apparent focal deficit) Abdomen: Soft, Non-Tender, Other (bowel sounds present) Extremities: Other (minimal BLE edema) Results 03/16/18 05:37 03/16/18 05:37 Lab Results 03/16/18 03/16/18 03/16/18 00:31 05:37 05:37 WBC 15.1 H Hgb 10.4 L Hct 31.5 L Plt Count 137 L Sodium 140 Potassium 4.5 D Chloride 103 Carbon Dioxide 20 L BUN 75 H Creatinine 4.35 H Glucose 277 H Calcium 8.8 Magnesium 2.1 Troponin I 0.03 < 0.03 - Imaging and Cardiology Chest Xray: report reviewed Other Results: CT ab/p - cirrhotic liver, nodule apparent - EKG Interpretation EKG results cardiology: personally reviewed (Presenting ECG (03/15 @1716) demonstrates NSR, RBBB, LAD; ECG 03/15 @ 2046 demonstrates NSR with narrowing of the QRS to 100ms, LAD - no acute ischemic findings) Consult Discharge Plan - Plan Referrals: Chandan Fitzgerald MD [Primary Care Provider] -
[2018-03-16 10:26] LABS: Hepatitis B Surface Antigen Nonreactive (Nonreactive)
--- NOTE | 2018-03-16 10:27 | Pulmonology Consult Note ---
<Blu Jimenez - Last Filed: 03/16/18 11:40> Date of Encounter: 03/16/18 Time of Encounter: 08:45 Assessment and Plan (1) Shock Current Visit: Yes Status: Acute Shock of unclear etiology, likely secondary to hypovolemia vs. uremia Patient has received significant fluid resuscitation Currently on Levophed for pressor support No obvious source of infection, sepsis unlikely WBC 15.1, Lactic Acid 1.9, HR >100, BP Low Plan: Continued fluid repletion Continue levophed to maintain MAP >65 Blood cultures x2 Start empiric antibiotics Vancomycin Day 1 Cefepime Day 2 (2) Acute encephalopathy Current Visit: Yes Status: Acute Acute metabolic encephalopathy Likely secondary to electrolyte abnormality vs. uremia The patient does appear to be improving with current treatment BUN is 75, down from >130 Metabolic acidosis appears to be improving There is no obvious respiratory abnormality oon ABG We will continue to monitor with scheduled neuro checks Consider Neurology consult tomorrow if there is no improvement (3) Acute kidney injury superimposed on CKD Current Visit: Yes Status: Acute Acute on chronic CKD, likely secondary to hypovolemia vs. rhabdomyolysis Serum creatinine down to 4.35 from 9.32. Baseline appears ~1.3 Required acute HD for hyperkalemia, which has improved Dr. Osborne is consulted for management of renal concerns (4) Metabolic acidosis Current Visit: Yes Status: Acute Acute metabolic acidosis, non-gapped Patient was acidotic on arrival, likely secondary to uremia vs. renal failure ABGs / 7.32/36/85// on RA 5/5 7.45/32/// on RA We will continue to monitor for signs of infection, Lactic acid currently 1.9 (5) Diarrhea Current Visit: Yes Status: Acute Patient is apparently having black liquid stools This could provide source of infection if present, and also source of hypovolemia We will check stool infectious panel Qualifiers: Diarrhea type: unspecified type Qualified Code(s): R19.7 - Diarrhea, unspecified (6) DM (diabetes mellitus), type 2 Current Visit: Yes Status: Chronic Type 2 diabetes mellitus, poorly controlled We will give basal and SSI Check A1C Qualifiers: Diabetes mellitus agile java developer insulin use: with agile java developer use Diabetes mellitus complication status: with kidney complications Diabetes mellitus complication detail: with chronic kidney disease Chronic kidney disease stage : stage 3 (moderate) Qualified Code(s): E11.22 - Type 2 diabetes mellitus with diabetic chronic kidney disease; N18.3 - Chronic kidney disease, stage 3 ( moderate); Z79.4 - [facility]FP (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 of insulin (7) Hyperkalemia Current Visit: Yes Status: Acute Hyperkalemia with EKG changes in the setting of THOMAS on arrival Improved, s/p emergent HD Continue to monitor (8) Hypothyroidism Current Visit: Yes Status: Chronic Hypothyroidism TSH 16, however Free T3/T45 within normal limits Continue Synthroid Qualifiers: Hypothyroidism type: acquired Qualified Code(s): E03.9 - Hypothyroidism, unspecified (9) Hypertension Current Visit: No Status: Chronic Hold BP meds in setting of shock Qualifiers: Hypertension type: essential hypertension Qualified Code(s): I10 - Essential (primary) hypertension (10) Acute electrocardiogram changes Current Visit: Yes Status: Acute EKG changes including peaked T waves and right bundle branch block Resolved following correction of metabolic derangements Troponins have remained negative x3 Cardiology was consulted, signed off (11) Obesity (BMI 30-39.9) Current Visit: No Status: Chronic (12) CVA (cerebral vascular accident) Current Visit: No Status: Chronic History of CVA No suspicion for new CVA, no apparent focal deficits Qualifiers: CVA mechanism: unspecified Qualified Code(s): I63.9 - Cerebral infarction, unspecified (13) DVT prophylaxis Current Visit: No Status: Acute SQ Heparin History of Present Illness Consult date: 03/16/18 Requesting physician: Estephania Gay Reason for consult: other (Shock) Chief complaint: altered mental status History of present illness: Mr. Borges is a 72-year-old gentleman with a history of diabetes, renal disease, hepatic disease, hypertension, prior CVA, thyroid disease, syncope who presented to the ED via EMS from episode of altered mental status. The patient apparently does live alone, however he is checked on by his sister. It should be noticed that the patient remains altered at this time is unable to provide history of his own, so much of his history is provided from previous documentation as well as story given by daughter. The patient was apparently last seen well morning, however she did note that he seemed somewhat out of it, and he'd had some incontinence. Yesterday the patient's daughter did go to visit and she found that he had fallen and was on the ground. At that time he appeared altered and was not able to speak with her. She was taken to the ED where he initially received a Head CT which was negative for intracranial process, a chest x-ray that showed minimal pulmonary vascular congestion, and an abdominal CT which demonstrated the appearance of liver cirrhosis. At that time the patient was also found to be hypothermic, and his labs demonstrated severe THOMAS with hyperkalemia (k+ 7.5) with associated EKG changes. Dr. Osborne was consulted from the ED and recommended acute hemodialysis, so a temporary HD cath and Central line were placed. The patient underwent HD overnight. It was noted that the patient also appeared to be in shock from unknown cause, with blood pressures that would require pressor support and aggressive fluid resuscitation. He was admitted to the ICU for aggressive management. Past Med Surg Social Fam HX - Past Medical History Medical history: diabetes, renal disease, hypertension, other, CVA, thyroid disease, cancer, syncope Psychiatric history: anxiety, depression - Past Surgical History Surgical History: orthopedic, other, thyroidectomy, other (cannot be obtained due to mental status), appendectomy - Social History Smoking Status: Never smoker Smokeless Tobacco Status: No Alcohol use: none Drug use: none - Family History Mother Living Status: Hx Family Cardiac Disorders: Yes Father Living Status: Hx Family Cardiac Disorders: Yes Medications and Allergies DULoxetine [Cymbalta] 60 mg PO DAILY 08/05/15 [History] Docusate [Colace] 200 mg PO BID PRN 08/05/15 [History] Donepezil [Aricept] 10 mg PO HS 08/05/15 [History] Lactulose 10 gm PO DAILY PRN 08/05/15 [History] Aspirin 81 mg PO DAILY 03/18/16 [History] Metoprolol Tartrate [Lopressor] 50 mg PO BID 03/18/16 [History] Furosemide [Lasix] 40 mg PO DAILY 07/30/16 [History] Mirabegron [Myrbetriq] 50 mg PO DAILY 07/30/16 [History] Fluticasone Propionate Nasal [Flonase] 50 mcg NS DAILY PRN 10/23/16 [History] Loratadine [Allergy Relief] 10 mg PO DAILY 10/23/16 [History] Amlodipine Besylate 10 mg PO DAILY 12/04/16 [History] Cyclobenzaprine [Flexeril] 5 mg PO TID PRN 12/04/16 [History] hydrALAZINE [HydrALAZINE] 10 mg PO BID #60 tablet 12/07/16 [Rx] Famotidine [Pepcid] 20 mg PO BID 04/08/17 [History] Ferrous Sulfate 325 mg PO BIDWM #30 tablet 04/19/17 [Rx] Atorvastatin [Lipitor] 40 mg PO HS 06/21/17 [History] Clopidogrel [Plavix] 75 mg PO DAILY 06/21/17 [History] Gabapentin [Neurontin] 100 mg PO BID 06/21/17 [History] Levothyroxine [Synthroid] 175 mcg PO QAM 06/21/17 [History] Lidocaine Patch [Lidoderm 5% patch] 1 each TP DAILY 06/21/17 [History] Losartan Potassium [Cozaar] 100 mg PO DAILY 06/21/17 [History] Baclofen [Lioresal] 10 mg PO TID 08/30/17 [History] Insulin NPH Human Isophane [Novolin N] 65 unit SQ BIDWM 08/30/17 [History] Insulin Regular, Human [Novolin R] 10 unit SQ TIDWM 08/30/17 [History] Lisinopril [Zestril] 20 mg PO DAILY 03/15/18 [History] Tizanidine HCl [Tizanidine HCl] 4 mg PO BID PRN 03/15/18 [History] 3 Allergy/AdvReac Type Severity Reaction Status Date / Time adhesive tape Allergy Hives Verified 12/26/17 17:43 pregabalin [From Lyrica] Allergy Swelling Verified 12/26/17 17:43 of Lip/Tongue/Throat Sulfa (Sulfonamide Allergy PER PT Verified 12/26/17 17:43 Antibiotics) UNKNOWN REACTION ROS unobtainable: due to mental status All Systems: The remainder of the systems were reviewed and are negative Physical Examination Vital Signs: Vital Signs, Last 4 Hours Temp Pulse Resp BP Pulse Ox 03/16/18 09:30 109 18 116/82 94 03/16/18 08:30 107 19 95/57 95 03/16/18 08:00 98.6 F 03/16/18 07:30 105 18 116/50 97 Gen: Vitals noted. No acute distress. HEENT: oropharynx clear but dry, Normocephalic, atraumatic Neck: Supple. No adenopathy. 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 Repeats "yes" to all questions. moves all extremities, no focal deficits Results - Laboratory Findings CBC and BMP: 03/16/18 05:37 03/16/18 05:37 ABG ABG pH 7.45 pH Units (7.32-7.45) 03/16/18 08:22 ABG pCO2 32 mmHg (35-45) L 03/16/18 08:22 ABG pO2 85 mmHg (85-104) 03/16/18 08:22 ABG O2 Saturation 97 % (95-98) 03/16/18 08:22 PT/INR, D-dimer PT 13.8 Seconds (9.4-12.1) H 03/15/18 18:27 Abnormal lab findings: Abnormal lab results WBC 15.1 K/mcL (4.3-11.1) H 03/16/18 05:37 RBC 3.40 M/mcL (4.19-5.50) L 03/16/18 05:37 Hgb 10.4 g/dL (12.9-16.9) L 03/16/18 05:37 Hct 31.5 % (37.5-50.1) L 03/16/18 05:37 Plt Count 137 K/mcL (140-400) L 03/16/18 05:37 Neutrophils # 12.2 K/mcL (1.6-8.9) H 03/16/18 05:37 PT 13.8 Seconds (9.4-12.1) H 03/15/18 18:27 ABG pCO2 32 mmHg (35-45) L 03/16/18 08:22 Carbon Dioxide 20 mEq/L (23-29) L 03/16/18 05:37 BUN 75 mg/dL (8-23) H 03/16/18 05:37 Creatinine 4.35 mg/dL (0.70-1.30) H 03/16/18 05:37 Est GFR ( Amer) 16 (> 60) L 03/16/18 05:37 Est GFR (Non-Af Amer) 14 (> 60) L 03/16/18 05:37 Glucose 277 mg/dL (70-105) H 03/16/18 05:37 POC Glucose 279 mg/dL (70-99) H 03/16/18 06:06 Calculated Osmolality 322 (280-300) H 03/16/18 05:37 Creatine Kinase 360 Units/L (30-223) H 03/16/18 09:10 TSH 16.493 mcIU/mL (0.340-5.600) H 03/15/18 17:37 Ur Specific [place] 1.026 (1.010-1.025) H 03/15/18 17:20 Urine Protein 30 mg/dL (Neg-Trace) H 03/15/18 17:20 Urine Glucose (UA) 250 mg/dL (Normal) H 03/15/18 17:20 Urine Bilirubin Small (Negative) H 03/15/18 17:20 - Clinical Findings Intake & Output: Intake & Output 03/15/18 03/16/18 03/16/18 23:59 07:59 15:59 Intake Total 1300 / 1660 508 / 508 Output Total 300 / 300 1225 / 1225 500 / 500 Balance 1000 / 1360 -717 / -717 -500 / -500 Consult Discharge Plan - Plan Referrals: Chandan Fitzgerald MD [Primary Care Provider] - <Logan Glaser S - Last Filed: 03/17/18 00:33> Date of Encounter: 03/17/18 All Systems: The remainder of the systems were reviewed and are negative Physical Examination Vital Signs: Vital Signs, Last 4 Hours Temp Pulse Resp BP Pulse Ox 03/16/18 23:00 98.3 F 104 18 154/75 97 03/16/18 22:00 112 18 144/79 100 03/16/18 21:00 108 18 151/80 97 03/16/18 20:49 98.8 F Results - Laboratory Findings CBC and BMP: 03/16/18 05:37 03/16/18 05:37 ABG ABG pH 7.45 pH Units (7.32-7.45) 03/16/18 08:22 ABG pCO2 32 mmHg (35-45) L 03/16/18 08:22 ABG pO2 85 mmHg (85-104) 03/16/18 08:22 ABG O2 Saturation 97 % (95-98) 03/16/18 08:22 PT/INR, D-dimer PT 13.8 Seconds (9.4-12.1) H 03/15/18 18:27 Abnormal lab findings: Abnormal lab results WBC 15.1 K/mcL (4.3-11.1) H 03/16/18 05:37 RBC 3.40 M/mcL (4.19-5.50) L 03/16/18 05:37 Hgb 10.4 g/dL (12.9-16.9) L 03/16/18 05:37 Hct 31.5 % (37.5-50.1) L 03/16/18 05:37 Plt Count 137 K/mcL (140-400) L 03/16/18 05:37 Neutrophils # 12.2 K/mcL (1.6-8.9) H 03/16/18 05:37 PT 13.8 Seconds (9.4-12.1) H 03/15/18 18:27 ABG pCO2 32 mmHg (35-45) L 03/16/18 08:22 Carbon Dioxide 20 mEq/L (23-29) L 03/16/18 05:37 BUN 75 mg/dL (8-23) H 03/16/18 05:37 Creatinine 4.35 mg/dL (0.70-1.30) H 03/16/18 05:37 Est GFR ( Amer) 16 (> 60) L 03/16/18 05:37 Est GFR (Non-Af Amer) 14 (> 60) L 03/16/18 05:37 Glucose 277 mg/dL (70-105) H 03/16/18 05:37 POC Glucose 178 mg/dL (70-99) H 03/16/18 23:07 Hemoglobin A1c 10.2 % (-5.6) H 03/16/18 00:31 Calculated Osmolality 322 (280-300) H 03/16/18 05:37 Creatine Kinase 360 Units/L (30-223) H 03/16/18 09:10 TSH 16.493 mcIU/mL (0.340-5.600) H 03/15/18 17:37 Ur Specific [place] 1.026 (1.010-1.025) H 03/15/18 17:20 Urine Protein 30 mg/dL (Neg-Trace) H 03/15/18 17:20 Urine Glucose (UA) 250 mg/dL (Normal) H 03/15/18 17:20 Urine Bilirubin Small (Negative) H 03/15/18 17:20 - Clinical Findings Intake & Output: Intake & Output 03/16/18 03/16/18 03/17/18 15:59 23:59 07:59 Intake Total 1760 / 1760 15 / 15 Output Total 1200 / 1200 2150 / 2150 Balance 560 / 560 -2135 / -2135 Weight 98 kg - Attending Attestation I saw and evaluated this patient and my medical decision-making was reviewed with the Resident Physician. I agree with the documented findings, disposition and treatment plan as described except to the extent set forth below. We independently had [id number] contact with the patient I spent 40 minutes of Critical Care time with this patient. It involved decision making of high complexity to assess, manipulate, and support vital organ system failure and/or to prevent further life threatening deterioration of the patient's condition. The time involved in the performance of separately reportable procedures was not counted toward critical care time. Patient seen and examined at bedside Labs, radiology, chart personally reviewed. Management was reviewed during multidisciplinary critical care rounds. ENROBER TENDER:Patient is drowsy engaging in simple conversations A X1 has toxic / metabolic encephalopathy . CT scan didnt show any acute intracrainal process . Pulm: Patient has acceptable oxygenation and ventilation , no evidence of any consolidation Patient is on Room air . Cards: Patient is hypotensive unclassified shock hypovolemia vs Septic doubt it is cardiogenic will trend troponins , the rhythm issue due to metabolic cause . Ordered ECHO Will give some fluids try to liberate from Vasopressors . FEN-GI:NPO , GI bleed started on PPI held plavix . Trending Hb . Consult GI for further evaluation Renal: Acute on Chronic kidney injury . Hyperkalemia with metabolic acidosis with uremic enephalopathy had setting of dialysis . Nephrology following ID: No evidence of obvious infection , kim culture . Started on broad spectrum antibiotics Heme/Onc: Concern for GI bleed . To check Hb Endo: Glucose Monitored Integ/MSK: Skin Care per routine ICU Nursing Protocol to prevent ulcers. Lines: All lines examined without evidence of infection : Dispo: Patient is critically ill concern for circulatory failure CODE:Full Code
[2018-03-16 11:51] LABS: Estimated Average Glucose 246 mg/dl; Hemoglobin A1C 10.2 %
[2018-03-16 12:30] LABS: Amphetamine Screen,Urine Negative ng/mL (Cutoff=1000); Barbiturate Screen,Urine Negative ng/mL (Cutoff=200); Benzodiazepines Screen,Urine Negative ng/mL (Cutoff=200); Cannabinoid Screen,Urine Negative ng/mL (Cutoff = 50); Cocaine Screen,Urine Negative ng/mL (Cutoff= 300); Opiate Screen,Urine Negative ng/mL (Cutoff=300); Phencyclidine Screen,Urine Negative ng/mL (Cutoff=25)
[2018-03-16] MEDS ORDERED: Perflutren Lipid Microsphere 1.3 ML in 0.9 % Sodium Chloride 8.7 ML IVP ONE (14:22)
[2018-03-16] MEDS ORDERED: Perflutren Lipid Microsphere 2 ML VIAL ONE (14:30)
[2018-03-16] MEDS: Cefepime HCl 1,000 MG in 0.9 % Sodium Chloride Mini Bag 100 ML IVPB SCH (18:11)
[2018-03-17] MEDS: Pantoprazole 40 MG VIAL IVP SCH ×3 (01:35→17:49)
[2018-03-17 04:26] LABS: Basophils % 0.2 %; Eosinophils # 0.2 K/mcL (0.0-0.6); Eosinophils % 2.7 %; Hemoglobin 10.2 g/dL (12.9-16.9); Immature Granulocytes % 0.7 % (0-4); Immature Platelets 5.3 % (1.1-6.1); Lymphocytes # 1.6 K/mcL (0.6-4.6); Lymphocytes % 19.2 %; Mean Corpuscular HGB Conc 32.9 g/dL (31.6-35.5); Mean Corpuscular Hemoglobin 30.7 pg (28.0-33.3); Mean Corpuscular Volume 93.4 fL (83.0-100.0); Mean Platelet Volume 11.2 fL (9.4-12.4); Monocytes # 0.9 K/mcL (0.0-1.3); Neutrophils # 5.4 K/mcL (1.6-8.9); Platelet Count 102 K/mcL (140-400); Red Blood Count 3.32 M/mcL (4.19-5.50); Red Cell Distribution Width 13.7 % (11.5-14.5); Segmented Neutrophils % 66.2 %
[2018-03-17 04:51] LABS: Potassium 3.9 mEq/L (3.5-5.1)
[2018-03-17] MEDS: *HR* Heparin 5,000 UNIT/ML VIAL SQ SCH ×2 (05:33→17:49)
[2018-03-17] MEDS: Insulin LISPRO 300 UNITS/3 ML VIAL SQ SCH ×3 (05:37→17:50)
--- NOTE | 2018-03-17 08:04 | Pulmonology Progress Note ---
<Blu Jimenez - Last Filed: 03/17/18 08:15> Date of Encounter: 03/17/18 Time of Encounter: 08:02 Assessment and Plan (1) Shock Current Visit: Yes Status: Acute Shock of unclear etiology, likely secondary to hypovolemia vs. uremia, Improved Patient has received significant fluid resuscitation Currently on Levophed for pressor support No obvious source of infection, sepsis unlikely WBC down to 8.2, remains tachycardic Plan: Continued fluid repletion Continue levophed to maintain MAP >65 Blood cultures x2 Start empiric antibiotics Vancomycin Day 2 Cefepime Day 3 Likely DC antibiotics in the morning (2) Acute encephalopathy Current Visit: Yes Status: Acute Acute metabolic encephalopathy Patient is no longer showing significant improvement with reduction of BUN and resolution of Metabolic Acidosis BUN is 55, down from 75 , metabolic acidosis appears to have resolved There is no obvious respiratory abnormality on ABG Given the abnormal nature of this patient's AMS, we will consult neurology Ordered MRI on recommendation of Dr. Forman (3) Acute kidney injury superimposed on CKD Current Visit: Yes Status: Acute Acute on chronic CKD, likely secondary to hypovolemia vs. rhabdomyolysis Serum creatinine down to 2.40 from 9.32. Baseline appears ~1.3 Required acute HD for hyperkalemia, but renal status has started to improve despite no repeat HD Dr. Osborne is consulted for management of renal concerns (4) Diarrhea Current Visit: Yes Status: Acute Diarrhea, apparently black in color Concern for GI bleeding, however Hgb has not dropped over stay It is possible that rapid fluid expansion followed by diuresis cold be masking fluctuations in Hgb Stool studies are currently pending I will recheck H/H this morning, and if there is acute change I will consult GI Qualifiers: Diarrhea type: unspecified type Qualified Code(s): R19.7 - Diarrhea, unspecified (5) DM (diabetes mellitus), type 2 Current Visit: Yes Status: Chronic Type 2 diabetes mellitus, poorly controlled, A1c 10.2 We will give basal and SSI Qualifiers: Diabetes mellitus intermediate teacher insulin use: with fpc use Diabetes mellitus complication status: with kidney complications Diabetes mellitus complication detail: with chronic kidney disease Chronic kidney disease stage : stage 3 (moderate) Qualified Code(s): E11.22 - Type 2 diabetes mellitus with diabetic chronic kidney disease; N18.3 - Chronic kidney disease, stage 3 ( moderate); N18.3 - Chronic kidney disease, stage 3 (moderate); Z79.4 - long term care pharmacist (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 of insulin; Z79.4 - long-term (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 of insulin; Z79.4 - long term care pharmacist (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 of insulin; Z79.4 - long term care pharmacist (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 of insulin (6) Hypothyroidism Current Visit: Yes Status: Chronic Hypothyroidism TSH 16, however Free T3/T45 within normal limits Continue Synthroid Qualifiers: Hypothyroidism type: acquired Qualified Code(s): E03.9 - Hypothyroidism, unspecified (7) Hypertension Current Visit: No Status: Chronic Hold BP meds in setting of shock As shock improves, we will add medications back Qualifiers: Hypertension type: essential hypertension Qualified Code(s): I10 - Essential (primary) hypertension (8) Obesity (BMI 30-39.9) Current Visit: Yes Status: Chronic (9) CVA (cerebral vascular accident) Current Visit: No Status: Chronic History of CVA No suspicion for new CVA, no apparent focal deficits Qualifiers: CVA mechanism: unspecified Qualified Code(s): I63.9 - Cerebral infarction, unspecified (10) Metabolic acidosis Current Visit: Yes Status: Resolved Appears to have resolved (11) Hyperkalemia Current Visit: Yes Status: Resolved (12) Acute electrocardiogram changes Current Visit: Yes Status: Resolved EKG changes including peaked T waves and right bundle branch block Resolved following correction of metabolic derangements Troponins have remained negative x3 Cardiology was consulted, signed off (13) DVT prophylaxis Current Visit: No Status: Acute Subjective Principal diagnosis: Metabolic encephalopathy Interval history: The patient is resting comfortably in bed at time of examination. He apparently became disgruntled overnight and required addition of a sitter in order to keep him in bed. He remains altered. Objective PUL Vital signs: Last Vital Signs Temp 98.7 F 03/17/18 07:53 Pulse 114 03/17/18 07:29 Resp 21 03/17/18 07:29 BP 141/78 03/17/18 07:29 Pulse Ox 99 03/17/18 07:29 Gen: Vitals noted. No acute distress. HEENT: oropharynx clear but dry, Normocephalic, atraumatic Neck: Supple. No adenopathy. 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 Repeats "yes" to all questions, or with the question itself. moves all extremities, no focal deficits. Responds to some commands, but not all. Results - Laboratory Findings CBC and BMP: 03/17/18 04:10 03/17/18 04:10 ABG ABG pH 7.45 pH Units (7.32-7.45) 03/16/18 08:22 ABG pCO2 32 mmHg (35-45) L 03/16/18 08:22 ABG pO2 85 mmHg (85-104) 03/16/18 08:22 ABG O2 Saturation 97 % (95-98) 03/16/18 08:22 PT/INR, D-dimer PT 13.8 Seconds (9.4-12.1) H 03/15/18 18:27 Abnormal lab findings: Abnormal lab results RBC 3.32 M/mcL (4.19-5.50) L 03/17/18 04:10 Hgb 10.2 g/dL (12.9-16.9) L 03/17/18 04:10 Hct 31.0 % (37.5-50.1) L 03/17/18 04:10 Plt Count 102 K/mcL (140-400) L 03/17/18 04:10 PT 13.8 Seconds (9.4-12.1) H 03/15/18 18:27 ABG pCO2 32 mmHg (35-45) L 03/16/18 08:22 BUN 55 mg/dL (8-23) H 03/17/18 04:10 Creatinine 2.40 mg/dL (0.70-1.30) H 03/17/18 04:10 Est GFR ( Amer) 33 (> 60) L 03/17/18 04:10 Est GFR (Non-Af Amer) 27 (> 60) L 03/17/18 04:10 Glucose 204 mg/dL (70-105) H 03/17/18 04:10 POC Glucose 190 mg/dL (70-99) H 03/17/18 05:35 Hemoglobin A1c 10.2 % (-5.6) H 03/16/18 00:31 Calculated Osmolality 317 (280-300) H 03/17/18 04:10 Creatine Kinase 360 Units/L (30-223) H 03/16/18 09:10 TSH 16.493 mcIU/mL (0.340-5.600) H 03/15/18 17:37 Ur Specific [place] 1.026 (1.010-1.025) H 03/15/18 17:20 Urine Protein 30 mg/dL (Neg-Trace) H 03/15/18 17:20 Urine Glucose (UA) 250 mg/dL (Normal) H 03/15/18 17:20 Urine Bilirubin Small (Negative) H 03/15/18 17:20 - Clinical Findings Intake & Output: Intake & Output 03/16/18 03/17/18 03/17/18 23:59 07:59 15:59 Intake Total 15 Output Total 2150 / 2150 1100 / 1100 Balance -2135 / -2135 -1100 / -1100 Weight 98 kg Consult Discharge Plan - Plan Referrals: Chandan Fitzgerald MD [Primary Care Provider] - <Logan Glaser S - Last Filed: 03/17/18 11:34> Date of Encounter: 03/17/18 Objective PUL Vital signs: Last Vital Signs Temp 98.7 F 03/17/18 07:53 Pulse 96 03/17/18 10:30 Resp 19 03/17/18 10:30 BP 146/78 03/17/18 10:30 Pulse Ox 97 03/17/18 10:30 Results - Laboratory Findings CBC and BMP: 03/17/18 04:10 03/17/18 04:10 ABG ABG pH 7.45 pH Units (7.32-7.45) 03/16/18 08:22 ABG pCO2 32 mmHg (35-45) L 03/16/18 08:22 ABG pO2 85 mmHg (85-104) 03/16/18 08:22 ABG O2 Saturation 97 % (95-98) 03/16/18 08:22 PT/INR, D-dimer PT 13.8 Seconds (9.4-12.1) H 03/15/18 18:27 Abnormal lab findings: Abnormal lab results RBC 3.32 M/mcL (4.19-5.50) L 03/17/18 04:10 Hgb 10.2 g/dL (12.9-16.9) L 03/17/18 04:10 Hct 31.0 % (37.5-50.1) L 03/17/18 04:10 Plt Count 102 K/mcL (140-400) L 03/17/18 04:10 PT 13.8 Seconds (9.4-12.1) H 03/15/18 18:27 ABG pCO2 32 mmHg (35-45) L 03/16/18 08:22 BUN 55 mg/dL (8-23) H 03/17/18 04:10 Creatinine 2.40 mg/dL (0.70-1.30) H 03/17/18 04:10 Est GFR ( Amer) 33 (> 60) L 03/17/18 04:10 Est GFR (Non-Af Amer) 27 (> 60) L 03/17/18 04:10 Glucose 204 mg/dL (70-105) H 03/17/18 04:10 POC Glucose 190 mg/dL (70-99) H 03/17/18 05:35 Hemoglobin A1c 10.2 % (-5.6) H 03/16/18 00:31 Calculated Osmolality 317 (280-300) H 03/17/18 04:10 Creatine Kinase 360 Units/L (30-223) H 03/16/18 09:10 TSH 16.493 mcIU/mL (0.340-5.600) H 03/15/18 17:37 Ur Specific [place] 1.026 (1.010-1.025) H 03/15/18 17:20 Urine Protein 30 mg/dL (Neg-Trace) H 03/15/18 17:20 Urine Glucose (UA) 250 mg/dL (Normal) H 03/15/18 17:20 Urine Bilirubin Small (Negative) H 03/15/18 17:20 - Microbiology Findings Microbiology Findings: Microbiology, Last 48 Hours 03/16/18 09:10 Blood Culture - Preliminary Central Venous Catheter No growth. 03/16/18 08:15 Blood Culture - Preliminary Peripheral Venipuncture No growth. - Clinical Findings Intake & Output: Intake & Output 05/03/2903/17/18 03/17/18 23:59 07:59 15:59 Intake Total 115 / 115 Output Total 2150 / 2150 1100 / 1100 Balance -2034 / -2034 -1099 / -1100 Weight 98 kg - Attending Attestation - Attending Attestation I saw and evaluated this patient and my medical decision-making was reviewed with the Resident Physician. I agree with the documented findings, disposition and treatment plan as described except to the extent set forth below. We independently had [id number] contact with the patient Patient seen and examined at bedside Labs, radiology, chart personally reviewed. Management was reviewed during multidisciplinary critical care rounds. PHYSICAL THERAPY AID:Patient is drowsy engaging in simple conversations A X1 has toxic / metabolic encephalopathy . CT scan didnt show any acute intracranial process . His Metabolic profile is getting better but still his mental status is the same . Will Consult neurology will get MRI of Brain Pulm: Patient has acceptable oxygenation and ventilation , no evidence of any consolidation Patient is on Room air . Cards: Patient is hypotensive unclassified shock hypovolemia vs Septic doubt it is cardiogenic will trend troponins , the rhythm issue due to metabolic cause . Ordered ECHO Will give some fluids try to liberate from Vasopressors . / Patient is off Levophed more in favor of hypovolemia FEN-GI:NPO , GI bleed started on PPI held plavix . Hb is stable will hold off GI consult i dont think he needs an emergent endoscopic intervention will consult GI sunday if the black stools were peristent Renal: Acute on Chronic kidney injury . Hyperkalemia with metabolic acidosis with uremic enephalopathy had one setting of dialysis . Nephrology following. Metabolic profile getting better . ID: No evidence of obvious infection , kim culture . Started on broad spectrum antibiotics yesterday will descalate. Heme/Onc: Concern for GI bleed . To trend Hb today evening Endo: Glucose Monitored Integ/MSK: Skin Care per routine ICU Nursing Protocol to prevent ulcers. Lines: All lines examined without evidence of infection : Dispo: Patient can be transferred to Step down CODE:Full Code
--- NOTE | 2018-03-17 08:06 | Nephrology Progress Note ---
Date of Encounter: 03/17/18 Time of Encounter: 07:50 - Assessment and Plan (1) Acute kidney injury superimposed on CKD Current Visit: Yes Status: Acute THOMAS in setting of hypotension, dehydration in setting of diuretic, ACEI, rabdo superimposed on CKD 3 in setting of diabetic nephropathy, baseline creat 1.3- 1.6. Renal fct improving. Creat 2.40, documented urine output 3975cc. No immediate need for HD today. Renal US negative. Avoid nephrotoxins, I&O. Will continue to monitor. (2) Altered mental status Current Visit: Yes Status: Acute Qualifiers: Qualified Code(s): R41.82 - Altered mental status, unspecified (3) Hyperkalemia Current Visit: Yes Status: Acute (4) Metabolic acidosis Current Visit: Yes Status: Acute (5) Rhabdomyolysis Current Visit: Yes Status: Acute Qualifiers: Qualified Code(s): M62.82 - Rhabdomyolysis Subjective Interval history: Awake, verbal. Knows self, but not whereabouts. Side rails up, attempting to get out of bed, staff at bedside. Room air, no longer on pressors. Objective - Vital Signs Vital signs: Vital Signs Temp Pulse Resp BP Pulse Ox 03/17/18 07:53 98.7 F 03/17/18 07:29 112 21 141/78 99 03/17/18 06:00 96 16 87/57 94 03/17/18 05:30 101 16 108/51 93 03/17/18 04:00 98.7 F 112 18 123/66 98 03/17/18 03:00 111 18 161/72 99 03/17/18 02:00 114 16 114/78 98 03/17/18 01:00 109 16 166/81 95 03/17/18 00:00 111 16 158/73 98 03/16/18 23:00 98.3 F 104 18 154/75 97 03/16/18 22:00 112 18 144/79 100 03/16/18 21:00 108 18 151/80 97 03/16/18 20:49 98.8 F 03/16/18 20:00 113 20 114/58 98 03/16/18 19:30 111 20 138/66 95 03/16/18 18:34 106 20 143/60 98 03/16/18 17:30 104 19 135/72 97 03/16/18 16:30 116 20 116/65 97 03/16/18 16:00 98.8 F 03/16/18 15:30 113 19 154/66 97 03/16/18 14:30 104 19 119/89 94 03/16/18 13:30 92 20 118/56 96 03/16/18 12:30 98.6 F 103 19 129/80 96 03/16/18 11:30 90 18 121/57 95 03/16/18 10:30 112 19 118/60 94 03/16/18 09:30 109 18 116/82 94 03/16/18 08:30 107 19 95/57 95 Intake and Output 03/16/18 03/17/18 03/17/18 23:59 07:59 15:59 Intake Total Output Total 2149 Balance -2134 / -2134 -1099 / Intake: IV Fluids Levophed 4 MG In Dextrose 5% 250 ML @ 5 MCG/MIN 19.05 mls/hr IVC CONT MARTINEZ Rx#:[id number] Oral 0 0 Output: Catheter 2149 Other: Stool Size Smear Small Stool Consistency liquid liquid Stool Color Black Black # Bowel Movements 1 1 Weight 98 kg Blood Glucose* 175 190 - General Appearance General appearance: Present: well-developed, well-nourished, appears started age , obese EENT: Present: mucous membranes moist Neck: Present: no JVD Respiratory: Present: clear Cardiology: Present: no edema, regular rate, regular rhythm Additional Comments: tachy 117, left AKA Gastrointestinal: Present: hypoactive bowel sounds, no tenderness Integumentary: Present: warm and dry - Lab 03/17/18 04:10 03/17/18 04:10 Most recent lab results ABG pH 7.45 pH Units (7.32-7.45) 03/16/18 08:22 ABG pCO2 32 mmHg (35-45) L 03/16/18 08:22 ABG pO2 85 mmHg (85-104) 03/16/18 08:22 ABG HCO3 22 mEq/L (21-27) 03/16/18 08:22 ABG O2 Saturation 97 % (95-98) 03/16/18 08:22 Calcium 9.0 mg/dL (8.6-10.3) 03/17/18 04:10 Magnesium 2.1 mg/dL (1.6-2.6) 03/16/18 05:37 Consult Discharge Plan - Plan Referrals: Chandan Fitzgerald MD [Primary Care Provider] -
[2018-03-17] MEDS ORDERED: Haloperidol Lactate 5 MG/ML VIAL IVP ONE (08:09)
[2018-03-17] MEDS ORDERED: *HR* LORazepam 2 MG/ML VIAL IVP ONE (08:09)
[2018-03-17] MEDS: Insulin DETEMIR 100 UNIT/ML X5UNITS SQ SCH (09:26)
[2018-03-17] MEDS: Aspirin 81 MG TAB.CHEW PO SCH (09:41)
--- NOTE | 2018-03-17 15:36 | Neurology - Consult Note ---
Date of Encounter: 03/17/18 Time of Encounter: 13:34 Assessment and Plan (1) Acute encephalopathy Current Visit: Yes Status: Acute This patient with multiple medical conditions was found down at home with significantly elevated BUN/creatinine already been followed by nephrology. His mental status changes seems to be improving slowly and gradually I suspect it is likely related to underlying metabolic toxic encephalopathy. The stroke remains in the differential and is a possibility for which I suggest getting an MRI of the brain when he is more stable. Continue to treat underlying metabolic and infectious etiologies. Check for other reversible causes. May continue on a low-dose of antiplatelet therapy with the possibility of the stroke but on examination I did not see any lateralizing sign. We will also get an EEG to make sure no interictal abnormalities considering multiple metabolic abnormalities possibility of nonconvulsive seizures as well. Other treatment is as per primary team As patient is stable now and responding is okay to transfer him out of the ICU from neurology standpoint (2) Acute kidney failure, unspecified Current Visit: Yes Status: Acute Qualifiers: Acute renal failure type: unspecified Qualified Code(s): N17.9 - Acute kidney failure, unspecified (3) Encephalopathy acute Current Visit: Yes Status: Acute History of Present Illness HPI: Mr. Borges is a 72 year old male with history of hypertension, diabetes, chronic kidney disease, chronic pain on pain pump, was brought in by EMS with altered mental status. Patient noted to have a significantly elevated BUN/ creatinine requiring urgent dialysis and because of the mental status changes has been transferred to the ICU. Now he seems to be more awake and alert and able to respond though still not back to his baseline but's noted to be improved as compared to the records Patient was admitted earlier as he was found down down last night and was unable to get up. His daughter went to check on him today, found him on the with confusion and disorientation. He was noted to be hypothermic in the ER. Labs revealed significant acute on chronic renal failure, hyperkalemia, metabolic acidosis. Now patient is awake able to say his name and able to follow 1 step commands he does seem to be repeating anxiety over and over moving extremities including his left AKA Past Med Surg Social Fam HX - Past Medical History Medical history: diabetes, renal disease, hypertension, other, CVA, thyroid disease, cancer, syncope Psychiatric history: anxiety, depression - Past Surgical History Surgical History: orthopedic, other, thyroidectomy, other (cannot be obtained due to mental status), appendectomy - Social History Smoking Status: Never smoker Smokeless Tobacco Status: No Alcohol use: none Drug use: none - Family History Mother Living Status: Hx Family Cardiac Disorders: Yes Father Living Status: Hx Family Cardiac Disorders: Yes Medications and Allergies DULoxetine [Cymbalta] 60 mg PO DAILY 08/05/15 [History] Docusate [Colace] 200 mg PO BID PRN 08/05/15 [History] Donepezil [Aricept] 10 mg PO HS 08/05/15 [History] Lactulose 10 gm PO DAILY PRN 08/05/15 [History] Aspirin 81 mg PO DAILY 03/18/16 [History] Metoprolol Tartrate [Lopressor] 50 mg PO BID 03/18/16 [History] Furosemide [Lasix] 40 mg PO DAILY 07/30/16 [History] Mirabegron [Myrbetriq] 50 mg PO DAILY 07/30/16 [History] Fluticasone Propionate Nasal [Flonase] 50 mcg NS DAILY PRN 10/23/16 [History] Loratadine [Allergy Relief] 10 mg PO DAILY 10/23/16 [History] Amlodipine Besylate 10 mg PO DAILY 12/04/16 [History] Cyclobenzaprine [Flexeril] 5 mg PO TID PRN 12/04/16 [History] hydrALAZINE [HydrALAZINE] 10 mg PO BID #60 tablet 12/07/16 [Rx] Famotidine [Pepcid] 20 mg PO BID 04/08/17 [History] Ferrous Sulfate 325 mg PO BIDWM #30 tablet 04/19/17 [Rx] Atorvastatin [Lipitor] 40 mg PO HS 06/21/17 [History] Clopidogrel [Plavix] 75 mg PO DAILY 06/21/17 [History] Gabapentin [Neurontin] 100 mg PO BID 06/21/17 [History] Levothyroxine [Synthroid] 175 mcg PO QAM 06/21/17 [History] Lidocaine Patch [Lidoderm 5% patch] 1 each TP DAILY 06/21/17 [History] Losartan Potassium [Cozaar] 100 mg PO DAILY 06/21/17 [History] Baclofen [Lioresal] 10 mg PO TID 08/30/17 [History] Insulin NPH Human Isophane [Novolin N] 65 unit SQ BIDWM 08/30/17 [History] Insulin Regular, Human [Novolin R] 10 unit SQ TIDWM 08/30/17 [History] Lisinopril [Zestril] 20 mg PO DAILY 03/15/18 [History] Tizanidine HCl [Tizanidine HCl] 4 mg PO BID PRN 03/15/18 [History] 3 Allergy/AdvReac Type Severity Reaction Status Date / Time adhesive tape Allergy Hives Verified 12/26/17 17:43 pregabalin [From Lyrica] Allergy Swelling Verified 12/26/17 17:43 of Lip/Tongue/Throat Sulfa (Sulfonamide Allergy PER PT Verified 12/26/17 17:43 Antibiotics) UNKNOWN REACTION ROS unobtainable: other All Systems: The remainder of the systems were reviewed and are negative Review of Systems: Limited review of system due to mental status changes though as per nursing staff he did not have any seizures his mental status noted to be improving Physical Examination - Vital Signs Vital Signs: Initial Vital Signs Temp Pulse Resp BP Pulse Ox 94.1 F L 88 20 94/57 96 03/15/18 16:44 03/15/18 16:44 03/15/18 16:44 03/15/18 16:44 03/15/18 16:44 - Exam Exam: GENERAL: Comfortable in no acute distress HEENT: Normal LUNGS: CTA HEART: RRR, S1 S2 Audible, no murmur EXTREMITIES: No Pedal edema. On the right he does have a left AKA - Constitutional General appearance: comfortable - Neurologic Motor examination - right side: 3/5: hip flexors, tibialis Anterior, quadriceps , toe extension (EHL), plantarflexion, 4/5: deltoids, biceps, triceps, wrist flexion, wrist extension, operating room manager Motor examination - left side: 3/5: quadriceps, 4/5: deltoids, biceps, triceps, wrist flexion, wrist extension, hip flexors, operating room manager Reflexes: Biceps: 1+, Triceps: 1+, Patella: 0 Mental Status Examination: awake, alert, oriented to person, oriented to place, opens eyes to voice, opens eyes to noxious stimulation, makes eye contact, follows simple commands, localizes noxious stimulation Cranial nerve examination: PERRL, EOMI, visual caal intact, sensory to face intact, no facial asymmetry is present Results - Laboratory Findings CBC and BMP: 03/17/18 04:10 03/17/18 04:10 Abnormal lab findings: Abnormal lab results RBC 3.32 M/mcL (4.19-5.50) L 03/17/18 04:10 Hgb 10.2 g/dL (12.9-16.9) L 03/17/18 04:10 Hct 31.0 % (37.5-50.1) L 03/17/18 04:10 Plt Count 102 K/mcL (140-400) L 03/17/18 04:10 PT 13.8 Seconds (9.4-12.1) H 03/15/18 18:27 ABG pCO2 32 mmHg (35-45) L 03/16/18 08:22 BUN 55 mg/dL (8-23) H 03/17/18 04:10 Creatinine 2.40 mg/dL (0.70-1.30) H 03/17/18 04:10 Est GFR ( Amer) 33 (> 60) L 03/17/18 04:10 Est GFR (Non-Af Amer) 27 (> 60) L 03/17/18 04:10 Glucose 204 mg/dL (70-105) H 03/17/18 04:10 POC Glucose 206 mg/dL (70-99) H 03/17/18 11:30 Hemoglobin A1c 10.2 % (-5.6) H 03/16/18 00:31 Calculated Osmolality 317 (280-300) H 03/17/18 04:10 Creatine Kinase 360 Units/L (30-223) H 03/16/18 09:10 TSH 16.493 mcIU/mL (0.340-5.600) H 03/15/18 17:37 Ur Specific [place] 1.026 (1.010-1.025) H 03/15/18 17:20 Urine Protein 30 mg/dL (Neg-Trace) H 03/15/18 17:20 Urine Glucose (UA) 250 mg/dL (Normal) H 03/15/18 17:20 Urine Bilirubin Small (Negative) H 03/15/18 17:20 - Diagnostic Findings Additional findings: CT scan of the head at the time of admission was negative Consult Discharge Plan - Plan Referrals: Chandan Fitzgerald MD [Primary Care Provider] -
[2018-03-17 16:08] LABS: Hematocrit 31.6 % (37.5-50.1)
[2018-03-17 16:09] LABS: Hemoglobin 10.2 g/dL (12.9-16.9)
[2018-03-17] MEDS: Cefepime HCl 1,000 MG in 0.9 % Sodium Chloride Mini Bag 100 ML IVPB SCH (17:49)
[2018-03-17] MEDS ORDERED: Dextrose Gel 15 GM/37.5 ML TUBE PO PRN ×2 (19:34)
[2018-03-17] MEDS ORDERED: D5% in Water 1,000 ML IVC PRN (19:34)
[2018-03-17] MEDS ORDERED: Naloxone 0.4 MG/ML INJ IVP PRN (19:34)
[2018-03-17] MEDS ORDERED: Fluticasone Propionate Nasal 50 MCG/SPRAY BOTTLE NS PRN (19:34)
[2018-03-17] MEDS ORDERED: Vancomycin 1 EACH in EMPTY BAG 1 EACH IVPB SCH (19:34)
[2018-03-17] MEDS ORDERED: *HR* Dextrose 50 % in Water (Syg) 50 ML SYRINGE IVP PRN (19:34)
[2018-03-17] MEDS ORDERED: Acetaminophen 325 MG TABLET PO PRN (19:34)
[2018-03-17 22:32] LABS: Hematocrit 32.2 % (37.5-50.1); Hemoglobin 10.5 g/dL (12.9-16.9)
[2018-03-17 23:20] LABS: Folate 11.9 ng/mL (3.0-16.0)
[2018-03-18] MEDS ORDERED: Insulin LISPRO 300 UNITS/3 ML VIAL SQ SCH
[2018-03-18] MEDS ORDERED: Lactulose Oral Soln 20 GM/30 ML UDC PO PRN (00:28)
[2018-03-18] MEDS ORDERED: tiZANidine 4 MG TABLET PO PRN (00:28)
[2018-03-18] MEDS: Insulin DETEMIR 100 UNIT/ML X5UNITS SQ SCH ×3 (01:10→21:19)
[2018-03-18 01:25] LABS: Hepatitis A Antibody IgM Nonreactive (Nonreactive); Hepatitis B Core IgM Nonreactive (Nonreactive); Hepatitis C Virus Antibody Nonreactive (Nonreactive)
[2018-03-18] MEDS: Pantoprazole 40 MG VIAL IVP SCH (05:45)
[2018-03-18] MEDS: *HR* Heparin 5,000 UNIT/ML VIAL SQ SCH (05:45)
[2018-03-18] MEDS: Insulin LISPRO 300 UNITS/3 ML VIAL SQ SCH ×2 (05:53→12:07)
[2018-03-18 06:36] LABS: Basophils % 0.3 %; Hematocrit 32.2 % (37.5-50.1); Red Cell Distribution Width 13.7 % (11.5-14.5)
[2018-03-18 06:38] LABS: Eosinophils # 0.4 K/mcL (0.0-0.6); Eosinophils % 4.8 %; Hemoglobin 10.3 g/dL (12.9-16.9); Immature Granulocytes % 0.7 % (0-4); Immature Platelets 6.3 % (1.1-6.1); Lymphocytes # 1.7 K/mcL (0.6-4.6); Lymphocytes % 19.8 %; Mean Corpuscular Hemoglobin 30.7 pg (28.0-33.3); Mean Corpuscular Volume 96.1 fL (83.0-100.0); Mean Platelet Volume 11.1 fL (9.4-12.4); Monocytes # 0.8 K/mcL (0.0-1.3); Monocytes % 8.7 %; Platelet Count 103 K/mcL (140-400); Red Blood Count 3.35 M/mcL (4.19-5.50); Segmented Neutrophils % 65.7 %
[2018-03-18 06:40] LABS: Neutrophils # 5.7 K/mcL (1.6-8.9)
[2018-03-18 06:56] LABS: Albumin/Globulin Ratio 1.2 (1.1-2.2); Bilirubin,Total 0.5 mg/dL (0.3-1.0); Calcium 9.3 mg/dL (8.6-10.3); Globulin 3.3 g/dL (2.4-3.5); Potassium 4.1 mEq/L (3.5-5.1); Total Protein 7.3 g/dL (6.4-8.9)
[2018-03-18] MEDS ORDERED: Famotidine 20 MG TABLET PO SCH (07:30)
[2018-03-18] MEDS ORDERED: Insulin NPH 100 UNIT/ML (x5UNIT) SQ SCH (08:00)
[2018-03-18] MEDS ORDERED: Insulin Regular, Human 100 UNIT/ML SQ SCH (08:00)
[2018-03-18] MEDS: Aspirin 81 MG TAB.CHEW PO SCH (08:11)
--- NOTE | 2018-03-18 08:31 | Nephrology Progress Note ---
Date of Encounter: 03/18/18 Time of Encounter: 08:28 - Assessment and Plan (1) THOMAS (acute kidney injury) Current Visit: No Status: Acute The patient has acute kidney injury superimposed on stage III chronic kidney disease. The exact etiology of the acute kidney injury is not clear. In any event he is only required one dialysis session. The patient's renal function is improved and is close to his baseline. We will remove the femoral dialysis catheter. The patient a longer requires dialysis. (2) CKD (chronic kidney disease), stage III Current Visit: No Status: Acute Subjective Principal diagnosis: Metabolic encephalopathy Interval history: The patient will awaken and answer simple questions. He will then drift off back to sleep. He seems to be oriented to person but he is not oriented to place. From a renal perspective his creatinine continues to improve without dialysis. Urine output is 1.8 L. Objective - Vital Signs Vital signs: Vital Signs Temp Pulse Resp BP Pulse Ox 03/18/18 08:18 84 03/18/18 07:59 84 20 98 03/18/18 07:02 98.8 F 92 20 142/84 95 03/18/18 04:16 98.9 F 83 19 122/70 91 03/17/18 23:55 98.9 F 89 20 156/95 95 03/17/18 20:59 98.4 F 110 19 162/104 98 03/17/18 18:30 102 19 156/96 99 03/17/18 17:22 98 20 169/89 99 03/17/18 16:30 93 19 164/82 98 03/17/18 15:30 100 20 164/52 99 03/17/18 14:50 92 20 164/76 98 03/17/18 13:30 87 19 137/71 96 03/17/18 12:30 96 19 139/70 97 03/17/18 11:30 109 20 140/67 98 03/17/18 10:30 96 19 146/78 97 03/17/18 09:30 96 20 91/68 95 03/17/18 08:30 114 19 137/80 94 Intake and Output 03/17/18 03/18/18 03/18/18 23:59 07:59 15:59 Other: Stool Size Moderate Stool Consistency liquid Stool Characteristics Tarry Stool Color Black # Bowel Movements 1 Blood Glucose* 173 178 - General Appearance Exam: The patient will answer simple questions and then drift off back to sleep. Vital signs are stable. Lungs essentially clear to auscultation. Heart regular rate and rhythm with a 2/6 talk ejection murmur. Abdomen is benign. There is minimal lower extremity swelling on the right. Patient status post left above-knee amputation. There is a temporary dialysis catheter in the right femoral vein. - Lab 03/18/18 06:15 03/18/18 06:15 Most recent lab results ABG pH 7.45 pH Units (7.32-7.45) 03/16/18 08:22 ABG pCO2 32 mmHg (35-45) L 03/16/18 08:22 ABG pO2 85 mmHg (85-104) 03/16/18 08:22 ABG HCO3 22 mEq/L (21-27) 03/16/18 08:22 ABG O2 Saturation 97 % (95-98) 03/16/18 08:22 Calcium 9.3 mg/dL (8.6-10.3) 03/18/18 06:15 Magnesium 2.1 mg/dL (1.6-2.6) 03/16/18 05:37 Consult Discharge Plan - Plan Referrals: Chandan Fitzgerald MD [Primary Care Provider] -
[2018-03-18] MEDS ORDERED: hydrALAZINE 25 MG TABLET PO SCH (09:00)
[2018-03-18] MEDS ORDERED: Baclofen 10 MG TABLET PO SCH (09:00)
[2018-03-18] MEDS ORDERED: Lisinopril 20 MG TABLET PO SCH (09:00)
[2018-03-18] MEDS ORDERED: Gabapentin 100 MG CAPSULE PO SCH (09:00)
[2018-03-18] MEDS ORDERED: amLODIPine 5 MG TABLET PO SCH (09:00)
[2018-03-18] MEDS ORDERED: Mirabegron [Myrbetriq] 50 MG PO SCH (09:00)
[2018-03-18] MEDS ORDERED: Loratadine 10 MG TABLET PO SCH (09:00)
[2018-03-18] MEDS ORDERED: Furosemide 40 MG TABLET PO SCH (09:00)
--- NOTE | 2018-03-18 13:13 | Neurology Progress Note ---
Date of Encounter: 03/18/18 Time of Encounter: 07:30 Assessment and Plan (1) Acute encephalopathy Current Visit: Yes Status: Acute Patient remained with some confusion agitation and delirious symptoms at time but overall he is a stable and some improvement since yesterday no focal motor deficit on his examination suspect more metabolic toxic encephalopathy than anything else Unable to get an MRI of the brain at this time though clinically does not seem to have much features of a stroke or a seizure. Suggest continue treatment underlying metabolic and infectious etiology and particularly his kidney dysfunction , at the same time TSH is also significantly elevated may need to be addressed , other treatment is as per primary team also suggest to avoid any narcotics and any sedated medication that could make his mental status worse (2) Acute kidney failure, unspecified Current Visit: Yes Status: Acute Qualifiers: Acute renal failure type: unspecified Qualified Code(s): N17.9 - Acute kidney failure, unspecified (3) Encephalopathy acute Current Visit: Yes Status: Acute Subjective Principal diagnosis: Metabolic encephalopathy Interval history: Patient is a stable still some confusion and agitation at time but he is awake now sitting up in the bed asking for food and water as he is very thirsty as he is nothing by mouth now no other focal motor weakness Objective - Constitutional Vitals: Temp Pulse Resp BP Pulse Ox 98.5 F 91 20 165/93 98 03/18/18 11:01 03/18/18 12:23 03/18/18 12:23 03/18/18 11:01 03/18/18 12:23 - Neurological Exam Motor examination - left side: 3/5: quadriceps, tibialis Anterior, 4/5: deltoids , biceps, triceps, wrist flexion, wrist extension, hip flexors, 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 Mental Status Examination: Present: awake, alert, oriented to person, oriented to place, opens eyes to voice, opens eyes to noxious stimulation, makes eye contact, follows simple commands, localizes noxious stimulation Cranial nerve examination: Present: PERRL, EOMI, visual caal intact, sensory to face intact, no facial asymmetry is present Results - Laboratory Findings CBC and BMP: 03/18/18 06:15 03/18/18 06:15 Abnormal lab findings: Abnormal lab results RBC 3.35 M/mcL (4.19-5.50) L 03/18/18 06:15 Hgb 10.3 g/dL (12.9-16.9) L 03/18/18 06:15 Hct 32.2 % (37.5-50.1) L 03/18/18 06:15 Plt Count 103 K/mcL (140-400) L 03/18/18 06:15 Immature Plt Fraction 6.3 % (1.1-6.1) H 03/18/18 06:15 PT 13.8 Seconds (9.4-12.1) H 03/15/18 18:27 ABG pCO2 32 mmHg (35-45) L 03/16/18 08:22 Sodium 146 mEq/L (136-145) H 03/18/18 06:15 Chloride 110 mEq/L (98-107) H 03/18/18 06:15 BUN 42 mg/dL (8-23) H 03/18/18 06:15 Creatinine 1.72 mg/dL (0.70-1.30) H 03/18/18 06:15 Est GFR ( Amer) 48 (> 60) L 03/18/18 06:15 Est GFR (Non-Af Amer) 39 (> 60) L 03/18/18 06:15 Glucose 191 mg/dL (70-105) H 03/18/18 06:15 POC Glucose 178 mg/dL (70-99) H 03/18/18 05:51 Hemoglobin A1c 10.2 % (-5.6) H 03/16/18 00:31 Calculated Osmolality 318 (280-300) H 03/18/18 06:15 AST 45 Units/L (13-39) H 03/18/18 06:15 Creatine Kinase 360 Units/L (30-223) H 03/16/18 09:10 TSH 25.629 mcIU/mL (0.340-5.600) H 03/17/18 22:20 Ur Specific [place] 1.026 (1.010-1.025) H 03/15/18 17:20 Urine Protein 30 mg/dL (Neg-Trace) H 03/15/18 17:20 Urine Glucose (UA) 250 mg/dL (Normal) H 03/15/18 17:20 Urine Bilirubin Small (Negative) H 03/15/18 17:20 Consult Discharge Plan - Plan Referrals: Chandan Fitzgerald MD [Primary Care Provider] - 03/27/18 1:00 pm
--- NOTE | 2018-03-18 13:33 | Internal Med Progress Note ---
Date of Encounter: 03/18/18 Time of Encounter: 13:28 - Assessment and plan (1) CAD (coronary artery disease) Current Visit: No Status: Chronic Assessment and plan: no chest pain Qualifiers: Coronary Disease-Associated Artery/Lesion type: [place] artery [place] vs. transplanted heart: unspecified whether [place] or transplanted heart Associated angina: angina presence unspecified Qualified Code(s): I25.10 - Atherosclerotic heart disease of [place] coronary artery without angina pectoris (2) Rhabdomyolysis Current Visit: Yes Status: Acute Assessment and plan: resolved Qualifiers: Rhabdomyolysis type: non-traumatic Qualified Code(s): M62.82 - Rhabdomyolysis (3) Chronic pain Current Visit: Yes Status: Chronic Qualifiers: Chronic pain type: chronic pain syndrome Qualified Code(s): G89.4 - Chronic pain syndrome (4) Hypertension Current Visit: No Status: Chronic Assessment and plan: continue current meds Qualifiers: Hypertension type: essential hypertension Qualified Code(s): I10 - Essential (primary) hypertension (5) Diabetes mellitus Current Visit: Yes Status: Chronic Assessment and plan: continue on sliding scale Qualifiers: Diabetes mellitus type: type 2 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 insulin 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: without chcf use Diabetes mellitus complication status: with kidney complications Diabetes mellitus complication detail: with chronic kidney disease Chronic kidney disease stage: stage 3 (moderate) Qualified Code(s): E11.22 - Type 2 diabetes mellitus with diabetic chronic kidney disease; N18.3 - Chronic kidney disease, stage 3 (moderate); N18.3 - Chronic kidney disease, stage 3 (moderate) (6) Acute worsening of stage 3 chronic kidney disease Current Visit: No Status: Chronic Assessment and plan: nephrology following marked imrpvement (7) Encephalopathy acute Current Visit: Yes Status: Acute Assessment and plan: some improvement neurology following - Time Spent With Patient Total time spent is greater than 50% in coordination of care (as documented) at patient's floor/unit and/or counseling patient: - Subjective Interval history: Patient with history of hypertension, diabetes, CK D, chronic pain syndrome, admitted with confusion and encephalopathy found to have acute kidney injury secondary to rhabdomyolysis creatinine was 8 now down to 1.7 patient today still confused but awake and alert - Constitutional Vitals: Temp Pulse Resp BP Pulse Ox 98.5 F 91 20 165/93 98 03/18/18 11:01 03/18/18 12:23 03/18/18 12:23 03/18/18 11:01 03/18/18 12:23 General appearance: Present: A&O X 0 (somnolent, briefly opens eyes but falls asleep). Absent: answers questions appropriately - Eye Eye exam: Present: PERRL, conjuntiva pink, sclera anicteric Pupils: Present: PERRL - Neck Neck exam general surgery: Present: supple, trachea midline. Absent: lymphadenopathy - Respiratory Respiratory exam: Present: CTAB. Absent: accessory muscle use, rales, rhonchi, wheezes - GI/Abdominal GI/Abdominal exam: Present: normal bowel sounds, soft, no peritoneal signs. Absent: distended, tenderness Internal Medicine: Result - Labs CBC & Chem 7: 03/18/18 06:15 03/18/18 06:15 Labs: Short CBC 03/17/18 03/17/18 03/18/18 Range/Units 14:20 22:20 06:15 WBC 8.6 (4.3-11.1) K/mcL Hgb 10.2 L 10.5 L 10.3 L (12.9-16.9) g/dL Hct 31.6 L 32.2 L 32.2 L (37.5-50.1) % Plt Count 103 L (140-400) K/mcL Neutrophils # 5.7 (1.6-8.9) K/mcL BMP 03/18/18 06:15 Sodium 146 H Potassium 4.1 Chloride 110 H Carbon Dioxide 25 BUN 42 H Creatinine 1.72 H Glucose 191 H Calcium 9.3 Liver Function 03/18/18 Range/Units 06:15 Total Bilirubin 0.5 (0.3-1.0) mg/dL AST 45 H (13-39) Units/L ALT 24 (7-52) Units/L Alkaline Phosphatase 103 (34-104) Units/L Albumin 4.0 (3.5-5.7) g/dL - ABG Interpretation ABG results: ABG ABG pH 7.45 pH Units (7.32-7.45) 03/16/18 08:22 ABG pCO2 32 mmHg (35-45) L 03/16/18 08:22 ABG pO2 85 mmHg (85-104) 03/16/18 08:22 ABG O2 Saturation 97 % (95-98) 03/16/18 08:22 PT/INR, D-dimer PT 13.8 Seconds (9.4-12.1) H 03/15/18 18:27 Consult Discharge Plan - Plan Referrals: Chandan Fitzgerald MD [Primary Care Provider] - 03/27/18 1:00 pm
[2018-03-18] MEDS ORDERED: Aminoglycoside Consult 1 EACH MC ONE (17:19)
[2018-03-18] MEDS ORDERED: Cefepime HCl 1,000 MG in 0.9 % Sodium Chloride Mini Bag 100 ML IVPB SCH (18:00)
[2018-03-19] MEDS: *HR* Heparin 5,000 UNIT/ML VIAL SQ SCH ×4 (01:58→17:11)
[2018-03-19] MEDS: Aspirin 81 MG TAB.CHEW PO SCH ×2 (01:59→09:14)
[2018-03-19] MEDS: Pantoprazole 40 MG VIAL IVP SCH ×4 (01:59→17:11)
[2018-03-19] MEDS: Insulin LISPRO 300 UNITS/3 ML VIAL SQ SCH ×6 (01:59→20:32)
[2018-03-19] MEDS: Cefepime HCl 1,000 MG in Water for inj. (sterile) 20 ML 10 ML IVPB SCH ×2 (01:59→17:10)
[2018-03-19] MEDS: Insulin DETEMIR 100 UNIT/ML X5UNITS SQ SCH ×3 (02:00→20:33)
--- NOTE | 2018-03-19 09:05 | Neurology Progress Note ---
Date of Encounter: 03/19/18 Time of Encounter: 07:25 Assessment and Plan (1) Acute encephalopathy Current Visit: Yes Status: Acute His delirium seems to be slowly improving at times he still confused but the much better than how he was. He is now he is able to follow simple commands and able to have a conversation no focal motor deficit noted. MRI of the brain did not show any acute infarct. He did have a significantly elevated thyroid dysfunction along with the kidney dysfunctions he did have a multiple other metabolic condition thus probably contributing to his mental status changes slowly improving suggest to continue treat underlying conditions and etiology. (2) Acute kidney failure, unspecified Current Visit: Yes Status: Acute Qualifiers: Acute renal failure type: unspecified Qualified Code(s): N17.9 - Acute kidney failure, unspecified (3) Encephalopathy acute Current Visit: Yes Status: Acute Subjective Principal diagnosis: Metabolic encephalopathy Interval history: Patient is a stable still some confusion and agitation at time ,no other focal motor weakness, or alert and awake able to have a reasonable conversation today. No new focal motor weakness. He had an MRI of the brain that was limited due to movement but no obvious infarct were noted Objective - Constitutional Vitals: Temp Pulse Resp BP Pulse Ox 98.6 F 82 20 156/93 100 03/19/18 07:03 03/19/18 07:03 03/19/18 07:03 03/19/18 07:03 03/19/18 07:03 - Neurological Exam Motor examination - left side: 3/5: quadriceps, tibialis Anterior, 4/5: deltoids , biceps, triceps, wrist flexion, wrist extension, hip flexors, socket puller Mental Status Examination: Present: awake, alert, oriented to person, oriented to place, opens eyes to voice, opens eyes to noxious stimulation, makes eye contact, follows simple commands, localizes noxious stimulation Cranial nerve examination: Present: PERRL, EOMI, visual caal intact, sensory to face intact, no facial asymmetry is present Results - Laboratory Findings CBC and BMP: 03/18/18 06:15 03/18/18 06:15 Abnormal lab findings: Abnormal lab results RBC 3.35 M/mcL (4.19-5.50) L 03/18/18 06:15 Hgb 10.3 g/dL (12.9-16.9) L 03/18/18 06:15 Hct 32.2 % (37.5-50.1) L 03/18/18 06:15 Plt Count 103 K/mcL (140-400) L 03/18/18 06:15 Immature Plt Fraction 6.3 % (1.1-6.1) H 03/18/18 06:15 PT 13.8 Seconds (9.4-12.1) H 03/15/18 18:27 ABG pCO2 32 mmHg (35-45) L 03/16/18 08:22 Sodium 146 mEq/L (136-145) H 03/18/18 06:15 Chloride 110 mEq/L (98-107) H 03/18/18 06:15 BUN 42 mg/dL (8-23) H 03/18/18 06:15 Creatinine 1.72 mg/dL (0.70-1.30) H 03/18/18 06:15 Est GFR ( Amer) 48 (> 60) L 03/18/18 06:15 Est GFR (Non-Af Amer) 39 (> 60) L 03/18/18 06:15 Glucose 191 mg/dL (70-105) H 03/18/18 06:15 POC Glucose 143 mg/dL (70-99) H 03/19/18 03:27 Hemoglobin A1c 10.2 % (-5.6) H 03/16/18 00:31 Calculated Osmolality 318 (280-300) H 03/18/18 06:15 AST 45 Units/L (13-39) H 03/18/18 06:15 Creatine Kinase 360 Units/L (30-223) H 03/16/18 09:10 TSH 25.629 mcIU/mL (0.340-5.600) H 03/17/18 22:20 Ur Specific [place] 1.026 (1.010-1.025) H 03/15/18 17:20 Urine Protein 30 mg/dL (Neg-Trace) H 03/15/18 17:20 Urine Glucose (UA) 250 mg/dL (Normal) H 03/15/18 17:20 Urine Bilirubin Small (Negative) H 03/15/18 17:20 Consult Discharge Plan - Plan Referrals: Chandan Fitzgerald MD [Primary Care Provider] - 03/27/18 1:00 pm
--- NOTE | 2018-03-19 10:41 | Internal Med Progress Note ---
Date of Encounter: 03/19/18 Time of Encounter: 10:39 - Assessment and plan (1) CAD (coronary artery disease) Current Visit: No Status: Chronic Assessment and plan: No chest pain stable from a cardiac standpoint Qualifiers: Coronary Disease-Associated Artery/Lesion type: [place] artery [place] vs. transplanted heart: unspecified whether [place] or transplanted heart Associated angina: angina presence unspecified Qualified Code(s): I25.10 - Atherosclerotic heart disease of [place] coronary artery without angina pectoris (2) Rhabdomyolysis Current Visit: Yes Status: Acute Assessment and plan: Resolved Qualifiers: Rhabdomyolysis type: non-traumatic Qualified Code(s): M62.82 - Rhabdomyolysis (3) Chronic pain Current Visit: Yes Status: Chronic Assessment and plan: Continue current medication Qualifiers: Chronic pain type: chronic pain syndrome Qualified Code(s): G89.4 - Chronic pain syndrome (4) Hypertension Current Visit: No Status: Chronic Assessment and plan: Chronic and relatively controlled Qualifiers: Hypertension type: essential hypertension Qualified Code(s): I10 - Essential (primary) hypertension (5) Diabetes mellitus Current Visit: Yes Status: Chronic Assessment and plan: Chronic continue current sliding scale Qualifiers: Diabetes mellitus type: type 2 Diabetes mellitus jail 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 Diabetes mellitus complication status: with kidney complications Diabetes mellitus complication detail: with chronic kidney disease Chronic kidney disease stage: stage 3 (moderate) Qualified Code(s): E11.22 - Type 2 diabetes mellitus with diabetic chronic kidney disease; N18.3 - Chronic kidney disease, stage 3 (moderate); N18.3 - Chronic kidney disease, stage 3 (moderate) (6) Acute worsening of stage 3 chronic kidney disease Current Visit: No Status: Chronic Assessment and plan: Renal function markedly has improved (7) Encephalopathy acute Current Visit: Yes Status: Acute Assessment and plan: Clinically stable is awake a lot but confused - Time Spent With Patient Total time spent is greater than 50% in coordination of care (as documented) at patient's floor/unit and/or counseling patient: - Subjective Interval history: Patient with history of hypertension, diabetes, CK D, chronic pain syndrome, admitted with confusion and encephalopathy found to have acute kidney injury secondary to rhabdomyolysis creatinine was 8 now down to 1.7 patient today still confused but awake and alert Patient seen and examined he is awake alert t family Room no new acute medical issues still confused patient may need placement - Constitutional Vitals: Temp Pulse Resp BP Pulse Ox 98.6 F 100 20 156/93 99 03/19/18 07:03 03/19/18 09:32 03/19/18 09:32 03/19/18 07:03 03/19/18 09:32 General appearance: Present: A&O X 0 (somnolent, briefly opens eyes but falls asleep). Absent: answers questions appropriately Internal Medicine: Result - Labs CBC & Chem 7: 03/18/18 06:15 03/18/18 06:15 - ABG Interpretation ABG results: ABG ABG pH 7.45 pH Units (7.32-7.45) 03/16/18 08:22 ABG pCO2 32 mmHg (35-45) L 03/16/18 08:22 ABG pO2 85 mmHg (85-104) 03/16/18 08:22 ABG O2 Saturation 97 % (95-98) 03/16/18 08:22 PT/INR, D-dimer PT 13.8 Seconds (9.4-12.1) H 03/15/18 18:27 - Impressions Impressions Brain MRI 03/17/18 08:07 IMPRESSION: 1. Evaluation is limited due to extensive patient motion. Patient also refused completion of examination. 2. No gross evidence of an acute intracranial abnormality. No evidence of an acute infarct. D/ / Jose Padgett MD / Jose Padgett MD Interpreting Provider: Jose Padgett MD Consult Discharge Plan - Plan Referrals: Chandan Fitzgerald MD [Primary Care Provider] - 03/27/18 1:00 pm
--- NOTE | 2018-03-19 15:29 | Electrocardiograph Report ---
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
--- NOTE | 2018-03-19 15:32 | Electrocardiograph Report ---
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
--- NOTE | 2018-03-19 15:44 | Electrocardiograph Report ---
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
[2018-03-20] MEDS: *HR* Heparin 5,000 UNIT/ML VIAL SQ SCH (05:20)
[2018-03-20] MEDS: Pantoprazole 40 MG VIAL IVP SCH (05:20)
[2018-03-20 07:04] VITALS: BP 135/83
[2018-03-20] MEDS: Aspirin 81 MG TAB.CHEW PO SCH (08:15)
[2018-03-20] MEDS: Insulin LISPRO 300 UNITS/3 ML VIAL SQ SCH ×2 (08:15→13:10)
[2018-03-20] MEDS: Insulin DETEMIR 100 UNIT/ML X5UNITS SQ SCH (08:16)
[2018-03-20 09:14] LABS: Albumin 3.8 g/dL (3.5-5.7); Albumin/Globulin Ratio 1.1 (1.1-2.2); Bilirubin,Total 0.6 mg/dL (0.3-1.0); Globulin 3.5 g/dL (2.4-3.5); Potassium 4.1 mEq/L (3.5-5.1); Total Protein 7.3 g/dL (6.4-8.9)
--- NOTE | 2018-03-20 09:54 | Neurology Progress Note ---
Date of Encounter: 03/20/18 Time of Encounter: 07:25 Assessment and Plan (1) Acute encephalopathy Current Visit: Yes Status: Acute Patient slowly gradually improving now able to have reasonable conversation occasionally confused but not as bad. MRI of the brain did not show any acute infarct. T3-T4 was normal elevated TSH. Other neurological workup is normal. Suggest continue to treat underlying metabolic and infectious etiologies We will sign off call if needed (2) Acute kidney failure, unspecified Current Visit: Yes Status: Acute Qualifiers: Acute renal failure type: unspecified Qualified Code(s): N17.9 - Acute kidney failure, unspecified (3) Encephalopathy acute Current Visit: Yes Status: Acute Subjective Principal diagnosis: Metabolic encephalopathy Interval history: Patient is a stable still some confusion and agitation at time ,no other focal motor weakness, or alert and awake able to have a reasonable conversation today. No new focal motor weakness. overall better He had an MRI of the brain that was limited due to movement but no obvious infarct were noted Objective - Constitutional Vitals: Temp Pulse Resp BP Pulse Ox 99.9 F H 91 16 135/83 96 03/20/18 07:03 03/20/18 07:03 03/20/18 07:03 03/20/18 07:03 03/20/18 07:03 - Neurological Exam Motor examination - left side: 3/5: quadriceps, tibialis Anterior, 4/5: deltoids , biceps, triceps, wrist flexion, wrist extension, hip flexors, hardscape foreman Mental Status Examination: Present: awake, alert, oriented to person, oriented to place, opens eyes to voice, opens eyes to noxious stimulation, makes eye contact, follows simple commands, localizes noxious stimulation Cranial nerve examination: Present: PERRL, EOMI, visual caal intact, sensory to face intact, no facial asymmetry is present Results - Laboratory Findings CBC and BMP: 03/18/18 06:15 03/20/18 08:45 Abnormal lab findings: Abnormal lab results RBC 3.35 M/mcL (4.19-5.50) L 03/18/18 06:15 Hgb 10.3 g/dL (12.9-16.9) L 03/18/18 06:15 Hct 32.2 % (37.5-50.1) L 03/18/18 06:15 Plt Count 103 K/mcL (140-400) L 03/18/18 06:15 Immature Plt Fraction 6.3 % (1.1-6.1) H 03/18/18 06:15 PT 13.8 Seconds (9.4-12.1) H 03/15/18 18:27 ABG pCO2 32 mmHg (35-45) L 03/16/18 08:22 Carbon Dioxide 21 mEq/L (23-29) L 03/20/18 08:45 BUN 24 mg/dL (8-23) H 03/20/18 08:45 Creatinine 1.48 mg/dL (0.70-1.30) H 03/20/18 08:45 Est GFR ( Amer) 57 (> 60) L 03/20/18 08:45 Est GFR (Non-Af Amer) 47 (> 60) L 03/20/18 08:45 Glucose 220 mg/dL (70-105) H 03/20/18 08:45 POC Glucose 172 mg/dL (70-99) H 03/19/18 19:45 Hemoglobin A1c 10.2 % (-5.6) H 03/16/18 00:31 Creatine Kinase 360 Units/L (30-223) H 03/16/18 09:10 TSH 25.629 mcIU/mL (0.340-5.600) H 03/17/18 22:20 Ur Specific [place] 1.026 (1.010-1.025) H 03/15/18 17:20 Urine Protein 30 mg/dL (Neg-Trace) H 03/15/18 17:20 Urine Glucose (UA) 250 mg/dL (Normal) H 03/15/18 17:20 Urine Bilirubin Small (Negative) H 03/15/18 17:20 Consult Discharge Plan - Plan Referrals: Chandan Fitzgerald MD [Primary Care Provider] - 03/27/18 1:00 pm
--- NOTE | 2018-03-20 11:23 | Internal Med Progress Note ---
Date of Encounter: 03/20/18 Time of Encounter: 11:20 - Assessment and plan (1) Encephalopathy acute Current Visit: Yes Status: Acute Assessment and plan: Metabolic encephalopathy due to uremia. s/p dialysis. Improving gradually. MRI was negative for any acute intracranial pathology. Patient had only one session of dialysis. Kidneys appear to be recovering. Mental status improved (2) Acute kidney injury superimposed on CKD Current Visit: Yes Status: Acute Assessment and plan: Baseline serum creatinine noted to be around 1.7. Patient presented with uremia with significantly elevated BUN greater than 130 and creatinine 9.2, associated with metabolic acidosis, uremic encephalopathy, hyperkalemia and EKG changes. Likely due to rhabdomyolysis, dehydration in the setting of diuretics/ARB/RAJENDRA inhibitor, along with hypotension. Pt has had one session of hemodialysis and is no longer requiring dialysis. Renal function is improving. COntinue to monitor (3) Metabolic acidosis Current Visit: Yes Status: Resolved Assessment and plan: Metabolic acidosis likely due to acute renal failure. Resolved. (4) Diabetes mellitus Current Visit: Yes Status: Chronic Assessment and plan: Blood sugars noted to be elevated. Start Accu-Chek blood glucose monitoring with sliding scale insulin as needed. . 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 Diabetes mellitus complication status: with kidney complications Diabetes mellitus complication detail: with chronic kidney disease Chronic kidney disease stage: stage 3 (moderate) Qualified Code(s): E11.22 - Type 2 diabetes mellitus with diabetic chronic kidney disease; N18.3 - Chronic kidney disease, stage 3 (moderate); N18.3 - Chronic kidney disease, stage 3 (moderate) (5) Hyperkalemia Current Visit: Yes Status: Resolved Assessment and plan: Resolved s/p dialysis (6) CAD (coronary artery disease) Current Visit: Yes Status: Chronic Qualifiers: Coronary Disease-Associated Artery/Lesion type: [place] artery [place] vs. transplanted heart: [place] heart Associated angina: without angina Qualified Code(s): I25.10 - Atherosclerotic heart disease of [place] coronary artery without angina pectoris (7) Hypertension Current Visit: No Status: Chronic Assessment and plan: stable. Qualifiers: Hypertension type: essential hypertension Qualified Code(s): I10 - Essential (primary) hypertension (8) Hypothyroidism Current Visit: Yes Status: Chronic Qualifiers: Hypothyroidism type: unspecified Qualified Code(s): E03.9 - Hypothyroidism , unspecified (9) Rhabdomyolysis Current Visit: Yes Status: Acute Assessment and plan: Resolved with IV fluids. Qualifiers: Rhabdomyolysis type: non-traumatic Qualified Code(s): M62.82 - Rhabdomyolysis (10) Chronic pain Current Visit: Yes Status: Chronic Assessment and plan: Will hold narcotics and sedatives at this time. Qualifiers: Chronic pain type: chronic pain syndrome Qualified Code(s): G89.4 - Chronic pain syndrome - Time Spent With Patient Total time spent is greater than 50% in coordination of care (as documented) at patient's floor/unit and/or counseling patient: - Subjective Interval history: no acute events overnight - Constitutional Vitals: Temp Pulse Resp BP Pulse Ox 99.9 F H 91 16 135/83 96 03/20/18 07:03 03/20/18 07:03 03/20/18 07:03 03/20/18 07:03 03/20/18 07:03 General appearance: Present: A&O X 0 (somnolent, briefly opens eyes but falls asleep). Absent: answers questions appropriately - Head Head exam: Present: atraumatic, normocephalic - Eye Eye exam: Present: PERRL, conjuntiva pink, sclera anicteric Pupils: Present: PERRL - Neck Neck exam general surgery: Present: supple, trachea midline. Absent: lymphadenopathy - Respiratory Respiratory exam: Present: CTAB. Absent: accessory muscle use, rales, rhonchi, wheezes - Cardiovascular Cardiovascular exam: Present: RRR, +S1, +S2. Absent: diastolic murmur, gallop, rubs, systolic murmur - GI/Abdominal GI/Abdominal exam: Present: normal bowel sounds, soft, no peritoneal signs. Absent: distended, tenderness - Extremities Exam Extremities exam: Present: warm, radial pulses palpable and symmetrical. Absent : calf tenderness, cyanotic, pedal edema - Neurological Exam Neurological exam: Present: CN II-XII intact, oriented X3, no focal deficits. Absent: pronater drift, facial droop, speech deficit - Skin Skin exam: Present: dry, intact Internal Medicine: Result - Labs CBC & Chem 7: 03/18/18 06:15 03/20/18 08:45 Labs: BMP 03/20/18 08:45 Sodium 136 Potassium 4.1 Chloride 104 Carbon Dioxide 21 L BUN 24 H Creatinine 1.48 H Glucose 220 H Calcium 9.0 Liver Function 03/20/18 Range/Units 08:45 Total Bilirubin 0.6 (0.3-1.0) mg/dL AST 33 (13-39) Units/L ALT 23 (7-52) Units/L Alkaline Phosphatase 93 (34-104) Units/L Albumin 3.8 (3.5-5.7) g/dL - ABG Interpretation ABG results: ABG ABG pH 7.45 pH Units (7.32-7.45) 03/16/18 08:22 ABG pCO2 32 mmHg (35-45) L 03/16/18 08:22 ABG pO2 85 mmHg (85-104) 03/16/18 08:22 ABG O2 Saturation 97 % (95-98) 03/16/18 08:22 PT/INR, D-dimer PT 13.8 Seconds (9.4-12.1) H 03/15/18 18:27 Consult Discharge Plan - Plan Referrals: Chandan Fitzgerald MD [Primary Care Provider] - 03/27/18 1:00 pm
--- NOTE | 2018-03-20 14:46 | Discharge Summary ---
Orders not resulted at time of discharge: Pending orders 03/16/18 08:15 Culture,Blood [BC] Routine 03/16/18 09:10 Culture,Blood,Additional [BC] Routine Date of Encounter: 03/20/18 Time of Encounter: 14:30 - Discharge Diagnosis (1) Encephalopathy acute Priority: Primary Status: Acute Assessment and Plan: Metabolic encephalopathy due to uremia. s/p dialysis. Improved. MRI was negative for any acute intracranial pathology. Patient had only one session of dialysis. Kidneys appear to be recovering. Mental status improved and will be discharged today (2) Acute kidney injury superimposed on CKD Priority: Secondary Status: Acute Assessment and Plan: Baseline serum creatinine noted to be around 1.7. Patient presented with uremia with significantly elevated BUN greater than 130 and creatinine 9.2, associated with metabolic acidosis, uremic encephalopathy, hyperkalemia and EKG changes. Likely due to rhabdomyolysis, dehydration in the setting of diuretics/ARB/RAJENDRA inhibitor, along with hypotension. Pt has had one session of hemodialysis and is no longer requiring dialysis. Renal function has improved and patient is stable for discharge (3) Metabolic acidosis Priority: Secondary Status: Resolved Assessment and Plan: Metabolic acidosis likely due to acute renal failure. Resolved. (4) Diabetes mellitus Priority: Secondary Status: Chronic Assessment and Plan: Blood sugars noted to be elevated. Start Accu-Chek blood glucose monitoring with sliding scale insulin as needed. . Comments: Continue current regimen Qualifiers: Diabetes mellitus type: type 2 Diabetes mellitus detention insulin use: without detention use Diabetes mellitus complication status: with kidney complications Diabetes mellitus complication detail: with chronic kidney disease Chronic kidney disease stage: stage 3 (moderate) Qualified Code(s): E11.22 - Type 2 diabetes mellitus with diabetic chronic kidney disease; N18.3 - Chronic kidney disease, stage 3 (moderate); N18.3 - Chronic kidney disease, stage 3 (moderate) (5) Hyperkalemia Priority: Secondary Status: Resolved Assessment and Plan: Resolved s/p dialysis (6) Hypertension Priority: Secondary Status: Chronic Assessment and Plan: stable. Qualifiers: Hypertension type: essential hypertension Qualified Code(s): I10 - Essential (primary) hypertension (7) Hypothyroidism Priority: Secondary Status: Chronic Assessment and Plan: TSH noted to be elevated at 16.5. Check free T4 and free T3. Continue levothyroxine. Qualifiers: Hypothyroidism type: unspecified Qualified Code(s): E03.9 - Hypothyroidism , unspecified (8) Rhabdomyolysis Priority: Secondary Status: Acute Assessment and Plan: Resolved with IV fluids. Qualifiers: Rhabdomyolysis type: non-traumatic Qualified Code(s): M62.82 - Rhabdomyolysis (9) Chronic pain Priority: Secondary Status: Chronic Assessment and Plan: Held narcotics and sedatives Qualifiers: Chronic pain type: chronic pain syndrome Qualified Code(s): G89.4 - Chronic pain syndrome Hospital course: Mr. Borges is a 72 year old male - Time Spent with Patient Total time spent providing and/or coordinating discharge services: - Discharge Medications Home Medications: DULoxetine [Cymbalta] 60 mg PO DAILY 08/05/15 [History] Docusate [Colace] 200 mg PO BID PRN 08/05/15 [History] Donepezil [Aricept] 10 mg PO HS 08/05/15 [History] Lactulose 10 gm PO DAILY PRN 08/05/15 [History] Aspirin 81 mg PO DAILY 03/18/16 [History] Metoprolol Tartrate [Lopressor] 50 mg PO BID 03/18/16 [History] Furosemide [Lasix] 40 mg PO DAILY 07/30/16 [History] Mirabegron [Myrbetriq] 50 mg PO DAILY 07/30/16 [History] Fluticasone Propionate Nasal [Flonase] 50 mcg NS DAILY PRN 10/23/16 [History] Loratadine [Allergy Relief] 10 mg PO DAILY 10/23/16 [History] Amlodipine Besylate 10 mg PO DAILY 12/04/16 [History] Cyclobenzaprine [Flexeril] 5 mg PO TID PRN 12/04/16 [History] hydrALAZINE [HydrALAZINE] 10 mg PO BID #60 tablet 12/07/16 [Rx] Famotidine [Pepcid] 20 mg PO BID 04/08/17 [History] Ferrous Sulfate 325 mg PO BIDWM #30 tablet 04/19/17 [Rx] Atorvastatin [Lipitor] 40 mg PO HS 06/21/17 [History] Clopidogrel [Plavix] 75 mg PO DAILY 06/21/17 [History] Gabapentin [Neurontin] 100 mg PO BID 06/21/17 [History] Levothyroxine [Synthroid] 175 mcg PO QAM 06/21/17 [History] Lidocaine Patch [Lidoderm 5% patch] 1 each TP DAILY 06/21/17 [History] Losartan Potassium [Cozaar] 100 mg PO DAILY 06/21/17 [History] Baclofen [Lioresal] 10 mg PO TID 08/30/17 [History] Insulin NPH Human Isophane [Novolin N] 65 unit SQ BIDWM 08/30/17 [History] Insulin Regular, Human [Novolin R] 10 unit SQ TIDWM 08/30/17 [History] Lisinopril [Zestril] 20 mg PO DAILY 03/15/18 [History] Tizanidine HCl 4 mg PO BID PRN 03/15/18 [History] Allergies/Adverse Reactions: 3 Allergy/AdvReac Type Severity Reaction Status Date / Time adhesive tape Allergy Hives Verified 12/26/17 17:43 pregabalin [From Lyrica] Allergy Swelling Verified 12/26/17 17:43 of Lip/Tongue/Throat Sulfa (Sulfonamide Allergy PER PT Verified 12/26/17 17:43 Antibiotics) UNKNOWN REACTION Date of admission: 03/15/18 22:15 Primary care physician: Chandan Fitzgerald MD Consults: 03/15/18 23:29 Consult to Nephrology [CONS] Routine Consulting Provider: [facility] Reason for Consult: THOMAS on CKD, hyperkalemia, hypothermia, encephalopathy Call Completed: Yes 03/17/18 08:01 Consult to Neurology [CONS] Routine Consulting Provider: Neu[facility] Reason for Consult: Altered mental status Time Notified: 08:01 Call Completed: Yes 03/18/18 12:37 Consult to Interpret Exam [CONS] Routine Consulting Provider: Feng Solis I Consult to Interpret Exam: Interpret EEG 03/19/18 10:43 Consult to Case Management [CONS] Routine Comment: 03/19/18 10:46 Consult to Service Person [CONS] Stat Reason for SW Consult: rehab placement - Constitutional Vitals: Temp Pulse Resp BP Pulse Ox 99.9 F H 91 16 135/83 96 03/20/18 07:03 03/20/18 07:03 03/20/18 07:03 03/20/18 07:03 03/20/18 07:03 General appearance: Present: A&O X 0 (somnolent, briefly opens eyes but falls asleep). Absent: answers questions appropriately - Head Head exam: Present: atraumatic, normocephalic - Eye Eye exam: Present: PERRL, conjuntiva pink, sclera anicteric Pupils: Present: PERRL - Neck Neck exam general surgery: Present: supple, trachea midline. Absent: lymphadenopathy - Respiratory Respiratory exam: Present: CTAB. Absent: accessory muscle use, rales, rhonchi, wheezes - Cardiovascular Cardiovascular exam: Present: RRR, +S1, +S2. Absent: diastolic murmur, gallop, rubs, systolic murmur - GI/Abdominal GI/Abdominal exam: Present: normal bowel sounds, soft, no peritoneal signs. Absent: distended, tenderness - Extremities Exam Extremities exam: Present: warm, radial pulses palpable and symmetrical. Absent : calf tenderness, cyanotic, pedal edema - Neurological Exam Neurological exam: Present: CN II-XII intact, oriented X3, no focal deficits. Absent: pronater drift, facial droop, speech deficit - Skin Skin exam: Present: dry, intact - Patient Status Disposition: Home, Self-Care Condition: Critical - Discharge Instructions Instructions: Dehydration (GEN), Syncope (GEN), Fall Prevention (GEN) Follow Up With: Chandan Fitzgerald MD [Primary Care Provider] - 03/27/18 1:00 pm
[2018-03-20] MEDS ORDERED: Cefepime HCl 2,000 MG in Water for inj. (sterile) 20 ML 20 ML IVP SCH (16:00)
--- NOTE | 2018-03-22 11:57 | EEG/EMG/Oth Biometrics Report ---
EEG Procedure Report Date of procedure: 03/18/18 EEG Procedure: Routine EEG Procedure Note: Routine 21-channel digital EEG performed and recorded utilizing the standard international 10-20 electrode placement system. FINDINGS: This patient has predominant waking background rhythm which is well- organized, well-developed, average voltage 8 to 10 hertz alpha activity in the posterior regions, symmetrical over the both hemispheres reactive to eye opening and closing, and it is bilaterally synchronous. No [id number] discharges or any lateralizing abnormalities are seen. Photic stimulation and hyperventilation did not produce any convulsive response. No abnormalities were found during the procedure. Intermittent EMG artifacts were seen. Stage II sleep was not achieved. IMPRESSION: Normal awake/ drowsy electroencephalogram. No epileptiform discharges or any other paroxysmal activities or focal abnormalities seen. (Please note that normal EEG does not exclude the diagnosis of seizure or epilepsy, Clinical correlation is recommended.
== END 2018-03-20 17:20 | disposition home or self-care (01) | DRG 557 ==
LOC: EMEROO 16:41 → ICNU 22:04 → 2NNU 03-17 21:48 → 2ANU 03-19 14:57
PROVIDERS: ADMIT Internal Medicine; ATTEND Internal Medicine

== ENCOUNTER 2018-04-11 14:55 | Inpatient (IN) ==
[2018-04-11] MEDS ORDERED: 0.9 % Sodium Chloride 500 ML IVC ONE (16:42)
[2018-04-11 17:21] LABS: Hemoglobin 8.7 g/dL (12.9-16.9); Mean Corpuscular Volume 100.4 fL (83.0-100.0)
[2018-04-11 17:23] LABS: Basophils % 0.5 %; Eosinophils # 0.3 K/mcL (0.0-0.6); Eosinophils % 4.7 %; Hematocrit 27.7 % (37.5-50.1); Immature Granulocytes % 2.3 % (0-4); Immature Platelets 6.8 % (1.1-6.1); Lymphocytes # 1.4 K/mcL (0.6-4.6); Lymphocytes % 24.8 %; Mean Corpuscular HGB Conc 31.4 g/dL (31.6-35.5); Mean Corpuscular Hemoglobin 31.5 pg (28.0-33.3); Mean Platelet Volume 12.2 fL (9.4-12.4); Monocytes # 0.4 K/mcL (0.0-1.3); Monocytes % 7.9 %; Platelet Count 97 K/mcL (140-400); Red Blood Count 2.76 M/mcL (4.19-5.50); Segmented Neutrophils % 59.8 %
[2018-04-11 17:28] LABS: Neutrophils # 3.4 K/mcL (1.6-8.9)
[2018-04-11] MEDS ORDERED: Tdap (Boostrix) Vaccine 0.5 ML SYRINGE IM ONE (17:34)
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
[2018-04-11 17:45] LABS: Potassium 5.1 mEq/L (3.5-5.1)
[2018-04-11 17:55] LABS: Platelet Estimate Decreased (Normal)
[2018-04-11] MEDS ORDERED: Fluticasone Propionate Nasal 50 MCG/SPRAY BOTTLE NS PRN (21:13)
[2018-04-11] MEDS ORDERED: tiZANidine 4 MG TABLET PO PRN (21:13)
[2018-04-11] MEDS ORDERED: Dextrose Gel 15 GM/37.5 ML TUBE PO PRN ×2 (21:17)
[2018-04-11] MEDS ORDERED: *HR* Dextrose 50 % in Water (Syg) 50 ML SYRINGE IVP PRN (21:17)
[2018-04-11] MEDS ORDERED: D5% in Water 1,000 ML IVC PRN (21:17)
[2018-04-11] MEDS ORDERED: Naloxone 0.4 MG/ML INJ IVP PRN (21:18)
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
[2018-04-11] MEDS: Clindamycin 300 MG in D5% in Water 50 ML IVPB SCH (23:02)
[2018-04-12 05:20] LABS: Hemoglobin 8.3 g/dL (12.9-16.9); Mean Corpuscular Volume 98.1 fL (83.0-100.0); Nucleated Red Blood Cells 0.4 /100 WBC (0); Red Cell Distribution Width 15.7 % (11.5-14.5)
[2018-04-12 05:22] LABS: Basophils % 0.8 %; Eosinophils # 0.2 K/mcL (0.0-0.6); Eosinophils % 4.9 %; Hematocrit 25.6 % (37.5-50.1); Immature Granulocytes % 1.4 % (0-4); Lymphocytes # 1.1 K/mcL (0.6-4.6); Lymphocytes % 21.6 %; Mean Corpuscular HGB Conc 32.4 g/dL (31.6-35.5); Mean Corpuscular Hemoglobin 31.8 pg (28.0-33.3); Mean Platelet Volume 12.1 fL (9.4-12.4); Monocytes # 0.4 K/mcL (0.0-1.3); Monocytes % 8.8 %; Red Blood Count 2.61 M/mcL (4.19-5.50); Segmented Neutrophils % 62.5 %
[2018-04-12 05:30] LABS: Neutrophils # 3.1 K/mcL (1.6-8.9); Platelet Count 84 K/mcL (140-400)
[2018-04-12 05:42] LABS: Calcium 8.7 mg/dL (8.6-10.3); Potassium 4.8 mEq/L (3.5-5.1)
[2018-04-12] MEDS: *HR* Enoxaparin 30 MG/0.3 ML SYRINGE SQ SCH (06:13)
[2018-04-12] MEDS ORDERED: Famotidine 20 MG TABLET PO SCH (07:30)
[2018-04-12] MEDS ORDERED: Furosemide 40 MG TABLET PO SCH (09:00)
[2018-04-12] MEDS ORDERED: hydrALAZINE 25 MG TABLET PO SCH (09:00)
[2018-04-12] MEDS ORDERED: Lisinopril 20 MG TABLET PO SCH (09:00)
[2018-04-12] MEDS ORDERED: Mirabegron [Myrbetriq] 50 MG PO SCH (09:00)
[2018-04-12] MEDS: Insulin LISPRO 300 UNITS/3 ML VIAL SQ SCH ×4 (09:08→21:39)
[2018-04-12] MEDS: Aspirin 81 MG TAB.CHEW PO SCH (09:09)
[2018-04-12] MEDS: Baclofen 10 MG TABLET PO SCH ×3 (09:12→21:34)
[2018-04-12] MEDS: Gabapentin 100 MG CAPSULE PO SCH ×2 (09:12→21:34)
[2018-04-12] MEDS: amLODIPine 5 MG TABLET PO SCH (09:17)
[2018-04-12] MEDS: Clindamycin 300 MG in D5% in Water 50 ML IVPB SCH (09:32)
[2018-04-12] MEDS ORDERED: ceFAZolin 2,000 MG in D5% in Water 100 ML IVPB SCH (15:00)
[2018-04-12] MEDS: CeFAZolin Pre 2,000 MG/100 ML 2,000 MG/100 ML BAG IVPB SCH ×2 (16:24→23:58)
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
[2018-04-12] MEDS: Insulin NPH 100 UNIT/ML (x5UNIT) SQ SCH (18:47)
[2018-04-13] MEDS: *HR* Enoxaparin 30 MG/0.3 ML SYRINGE SQ SCH (05:10)
[2018-04-13] MEDS: Insulin LISPRO 300 UNITS/3 ML VIAL SQ SCH ×4 (07:57→21:24)
[2018-04-13] MEDS: Insulin NPH 100 UNIT/ML (x5UNIT) SQ SCH ×2 (07:59→17:50)
[2018-04-13] MEDS: CeFAZolin Pre 2,000 MG/100 ML 2,000 MG/100 ML BAG IVPB SCH ×2 (08:20→21:00)
[2018-04-13] MEDS: Aspirin 81 MG TAB.CHEW PO SCH (08:31)
[2018-04-13] MEDS: Baclofen 10 MG TABLET PO SCH ×3 (08:32→21:21)
[2018-04-13] MEDS: amLODIPine 5 MG TABLET PO SCH (08:33)
[2018-04-13] MEDS: Gabapentin 100 MG CAPSULE PO SCH ×2 (08:33→21:22)
[2018-04-13] MEDS: Famotidine 20 MG TABLET PO SCH (08:34)
[2018-04-13] MEDS ORDERED: *HR* HYDROcodone/Acet 5/325 mg TABLET PO PRN ×2 (12:03→12:08)
[2018-04-13] MEDS ORDERED: *HR* HYDROcodone/Acet 10/325 mg TABLET PO PRN (12:08)
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
[2018-04-14] MEDS: CeFAZolin Pre 2,000 MG/100 ML 2,000 MG/100 ML BAG IVPB SCH ×3 (00:38→16:50)
[2018-04-14] MEDS ORDERED: Haloperidol Lactate 5 MG/ML VIAL IVP ONE (02:18)
[2018-04-14] MEDS ORDERED: *HR* LORazepam 2 MG/ML VIAL IVP STA (02:32)
[2018-04-14 05:36] LABS: Red Cell Distribution Width 15.9 % (11.5-14.5)
[2018-04-14 05:38] LABS: Basophils % 0.6 %; Eosinophils # 0.4 K/mcL (0.0-0.6); Eosinophils % 5.4 %; Hematocrit 29.2 % (37.5-50.1); Hemoglobin 9.4 g/dL (12.9-16.9); Immature Granulocytes % 1.7 % (0-4); Immature Platelets 7.5 % (1.1-6.1); Lymphocytes # 1.2 K/mcL (0.6-4.6); Mean Corpuscular HGB Conc 32.2 g/dL (31.6-35.5); Mean Corpuscular Hemoglobin 32.1 pg (28.0-33.3); Mean Corpuscular Volume 99.7 fL (83.0-100.0); Mean Platelet Volume 12.1 fL (9.4-12.4); Monocytes # 0.5 K/mcL (0.0-1.3); Monocytes % 7.3 %; Neutrophils # 4.3 K/mcL (1.6-8.9); Nucleated Red Blood Cells 0.5 /100 WBC (0); Red Blood Count 2.93 M/mcL (4.19-5.50)
[2018-04-14 05:43] LABS: Platelet Count 97 K/mcL (140-400)
[2018-04-14 05:57] LABS: Calcium 9.2 mg/dL (8.6-10.3); Potassium 4.4 mEq/L (3.5-5.1)
[2018-04-14] MEDS: *HR* Enoxaparin 40 MG/0.4 ML SYRINGE SQ SCH (05:58)
[2018-04-14] MEDS: amLODIPine 5 MG TABLET PO SCH (09:39)
[2018-04-14] MEDS: Famotidine 20 MG TABLET PO SCH (09:39)
[2018-04-14] MEDS: Baclofen 10 MG TABLET PO SCH ×3 (09:40→21:03)
[2018-04-14] MEDS: Gabapentin 100 MG CAPSULE PO SCH ×2 (09:40→21:03)
[2018-04-14] MEDS: Aspirin 81 MG TAB.CHEW PO SCH (09:40)
[2018-04-14] MEDS: Insulin NPH 100 UNIT/ML (x5UNIT) SQ SCH ×2 (09:40→16:57)
[2018-04-14] MEDS: Insulin LISPRO 300 UNITS/3 ML VIAL SQ SCH ×4 (09:41→21:04)
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
[2018-04-15] MEDS: CeFAZolin Pre 2,000 MG/100 ML 2,000 MG/100 ML BAG IVPB SCH ×4 (00:21→18:16)
[2018-04-15] MEDS: *HR* Enoxaparin 40 MG/0.4 ML SYRINGE SQ SCH (05:52)
[2018-04-15] MEDS: Insulin LISPRO 300 UNITS/3 ML VIAL SQ SCH ×4 (08:31→20:51)
[2018-04-15] MEDS: Famotidine 20 MG TABLET PO SCH (08:53)
[2018-04-15] MEDS: amLODIPine 5 MG TABLET PO SCH (08:53)
[2018-04-15] MEDS: Gabapentin 100 MG CAPSULE PO SCH ×2 (08:53→20:37)
[2018-04-15] MEDS: Baclofen 10 MG TABLET PO SCH ×3 (08:53→20:37)
[2018-04-15] MEDS: Aspirin 81 MG TAB.CHEW PO SCH (08:54)
[2018-04-15] MEDS: Insulin NPH 100 UNIT/ML (x5UNIT) SQ SCH ×2 (09:00→16:34)
--- NOTE | 2018-04-15 16:26 | Internal Med Progress Note ---
Date of Encounter: 04/15/18 Time of Encounter: 16:23 - Assessment and plan (1) Cellulitis Current Visit: Yes Status: Acute Assessment and plan: Rt leg cellulities concerning for abscess too Reviewed X ray of Leg - did not show any abscess will get CT of Rt leg with no contrast for further eval mean while cont empirical abx IV Ancef Qualifiers: Site of cellulitis: extremity Site of cellulitis of extremity: lower extremity Laterality: right Qualified Code(s): L03.115 - Cellulitis of right lower limb (2) CKD (chronic kidney disease), stage III Current Visit: No Status: Acute Assessment and plan: Stable Cr at baseline (3) Diarrhea Current Visit: No Status: Acute Assessment and plan: Resolved Qualifiers: Diarrhea type: functional diarrhea Qualified Code(s): K59.1 - Functional diarrhea (4) Diabetes mellitus Current Visit: Yes Status: Acute Assessment and plan: Insulin NPH 65 U BID + ISS Qualifiers: Diabetes mellitus type: type 2 Diabetes mellitus complication status: without complication Qualified Code(s): E11.9 - Type 2 diabetes mellitus without complications; Z79.4 - shelter (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 of insulin (5) Hypertension Current Visit: No Status: Chronic Assessment and plan: Stable with home medication Qualifiers: Hypertension type: essential hypertension Qualified Code(s): I10 - Essential (primary) hypertension - Time Spent With Patient Total time spent is greater than 50% in coordination of care (as documented) at patient's floor/unit and/or counseling patient: - Subjective Interval history: Pt still c/o pain and swelling in hi Rt leg He does have small fluid loculated fluid collection in the middle of Rt leg over mao region Does not feel comfortable to go home today - Constitutional Vitals: Temp Pulse Resp BP Pulse Ox 97.4 F L 55 16 118/54 96 04/15/18 12:20 04/15/18 12:20 04/15/18 12:20 04/15/18 12:20 04/15/18 12:20 General appearance: Present: A&O X 3, no acute distress, answers questions appropriately - Head Head exam: Present: atraumatic, normal inspection - Neck Neck exam general surgery: Present: supple - Respiratory Respiratory exam: Present: decreased breath sounds. Absent: rales, respiratory distress, rhonchi, wheezes - Cardiovascular Cardiovascular exam: Present: RRR, +S1, +S2. Absent: tachycardia - GI/Abdominal GI/Abdominal exam: Present: normal bowel sounds, soft. Absent: rebound, rigid, tenderness - Extremities Exam Extremities exam: Present: pedal edema, tenderness (Moderate tenderness Rt middle of leg anteriorly). Absent: calf tenderness Additional comments: 4x5 cm size fluid collection noticed over rt middle of leg anteriorly over mao region - Back Exam Back exam: Absent: CVA tenderness (L), CVA tenderness (R) - Neurological Exam Neurological exam: Present: alert, oriented X3 - Psychiatric Psychiatric exam: Present: normal affect, normal mood Internal Medicine: Result - Labs CBC & Chem 7: 04/14/18 05:00 04/14/18 05:00 Consult Discharge Plan - Plan Referrals: Chandan Fitzgerald MD [Primary Care Provider] -
[2018-04-16] MEDS: CeFAZolin Pre 2,000 MG/100 ML 2,000 MG/100 ML BAG IVPB SCH ×3 (02:32→15:18)
[2018-04-16 06:29] LABS: Mean Corpuscular Hemoglobin 32.1 pg (28.0-33.3); Mean Platelet Volume 11.5 fL (9.4-12.4); Red Cell Distribution Width 15.8 % (11.5-14.5)
[2018-04-16 06:31] LABS: Basophils # 0.1 K/mcL (0.0-0.2); Eosinophils # 0.6 K/mcL (0.0-0.6); Eosinophils % 7.5 %; Hematocrit 31.1 % (37.5-50.1); Hemoglobin 10.2 g/dL (12.9-16.9); Immature Granulocytes % 3.7 % (0-4); Immature Platelets 5.7 % (1.1-6.1); Lymphocytes # 1.5 K/mcL (0.6-4.6); Lymphocytes % 20.9 %; Mean Corpuscular HGB Conc 32.8 g/dL (31.6-35.5); Mean Corpuscular Volume 97.8 fL (83.0-100.0); Monocytes # 0.6 K/mcL (0.0-1.3); Monocytes % 8.7 %; Neutrophils # 4.3 K/mcL (1.6-8.9); Nucleated Red Blood Cells 0.4 /100 WBC (0); Red Blood Count 3.18 M/mcL (4.19-5.50); Segmented Neutrophils % 58.2 %
[2018-04-16 06:38] LABS: Platelet Count 98 K/mcL (140-400)
[2018-04-16] MEDS: *HR* Enoxaparin 40 MG/0.4 ML SYRINGE SQ SCH (06:46)
[2018-04-16 06:48] LABS: BUN/Creatinine Ratio 19 (6-26); Blood Urea Nitrogen 21 mg/dL (8-23); Calcium 9.4 mg/dL (8.6-10.3); Carbon Dioxide 23 mEq/L (23-29); Chloride 107 mEq/L (98-107); Glucose 150 mg/dL (70-105); Osmolality,Calculated 294 (280-300); Sodium 139 mEq/L (136-145); eGFR For African Americans > 60 (> 60); eGFR For Non-African Americans > 60 (> 60)
[2018-04-16] MEDS: Insulin LISPRO 300 UNITS/3 ML VIAL SQ SCH ×2 (08:19→12:07)
[2018-04-16] MEDS: Insulin NPH 100 UNIT/ML (x5UNIT) SQ SCH (08:20)
[2018-04-16] MEDS: Aspirin 81 MG TAB.CHEW PO SCH (08:22)
[2018-04-16] MEDS: Famotidine 20 MG TABLET PO SCH (08:22)
[2018-04-16] MEDS: Baclofen 10 MG TABLET PO SCH ×2 (08:22→15:18)
[2018-04-16] MEDS: amLODIPine 5 MG TABLET PO SCH (08:23)
[2018-04-16] MEDS: Gabapentin 100 MG CAPSULE PO SCH (08:23)
[2018-04-16 11:42] VITALS: BP 147/67
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
--- NOTE | 2018-04-16 14:58 | Physician Discharge Referral ---
ExtendedCare Referral Info Institutional Level of Care: Skilled - Diagnosis (1) Hypertension Status: Chronic (2) Diarrhea Status: Acute (3) CKD (chronic kidney disease), stage III Status: Acute (4) Cellulitis Status: Acute (5) Diabetes mellitus Status: Acute - Transfer Medications Prescriptions: Doxycycline 100 mg PO BID 10 Days #20 capsule HYDROcodone/Acet 10/325 mg [[place] 10-325 mg] 1 each PO Q6H PRN 2 Days #20 tablet PRN Reason: Pain 6 - 10 Home Medications: DULoxetine [Cymbalta] 60 mg PO DAILY 08/05/15 [History] Docusate [Colace] 200 mg PO BID PRN 08/05/15 [History] Donepezil [Aricept] 10 mg PO HS 08/05/15 [History] Lactulose 10 gm PO DAILY PRN 08/05/15 [History] Aspirin 81 mg PO DAILY 03/18/16 [History] Metoprolol Tartrate [Lopressor] 50 mg PO BID 03/18/16 [History] Furosemide [Lasix] 40 mg PO DAILY 07/30/16 [History] Mirabegron [Myrbetriq] 50 mg PO DAILY 07/30/16 [History] Fluticasone Propionate Nasal [Flonase] 50 mcg NS DAILY PRN 10/23/16 [History] Loratadine [Allergy Relief] 10 mg PO DAILY 10/23/16 [History] Amlodipine Besylate 10 mg PO DAILY 12/04/16 [History] Famotidine [Pepcid] 20 mg PO BID 04/08/17 [History] Ferrous Sulfate 325 mg PO BIDWM #30 tablet 04/19/17 [Rx] Atorvastatin [Lipitor] 40 mg PO HS 06/21/17 [History] Clopidogrel [Plavix] 75 mg PO DAILY 06/21/17 [History] Gabapentin [Neurontin] 100 mg PO BID 06/21/17 [History] Levothyroxine [Synthroid] 175 mcg PO QAM 06/21/17 [History] Lidocaine Patch [Lidoderm 5% patch] 1 each TP DAILY 06/21/17 [History] Baclofen [Lioresal] 10 mg PO TID 08/30/17 [History] Insulin NPH Human Isophane [Novolin N] 65 unit SQ BIDWM 08/30/17 [History] Insulin Regular, Human [Novolin R] 20 unit SQ TID 08/30/17 [History] Lisinopril [Zestril] 20 mg PO DAILY 03/15/18 [History] Tizanidine HCl 4 mg PO BID PRN 03/15/18 [History] Donepezil [Aricept] 10 mg PO HS tablet 04/16/18 [Rx] Doxycycline 100 mg PO BID 10 Days #20 capsule 04/16/18 [Rx] HYDROcodone/Acet 10/325 mg [[place] 10-325 mg] 1 each PO Q6H PRN 2 Days #20 tablet 04/16/18 [Rx] Allergies/Adverse Reactions: 3 Allergy/AdvReac Type Severity Reaction Status Date / Time adhesive tape Allergy Hives Verified 12/26/17 17:43 pregabalin [From Lyrica] Allergy Swelling Verified 12/26/17 17:43 of Lip/Tongue/Throat Sulfa (Sulfonamide Allergy PER PT Verified 12/26/17 17:43 Antibiotics) UNKNOWN REACTION - Respiratory Orders Smoking Cessation: Smoking cessation has been advised. For more information, call the [place] Tobacco Quit Line at 6-588-DCZD-NOW. CERTIFICATION: I certify that the transfer of the above named patient to an Extended Care Facility is necessary for the continuing treatment of the diagnosis listed. The above information is true and accurate reflection of patient's current condition. Confidential - Redisclosure prohibited without a patient's written consent.
== END 2018-04-16 17:44 | DRG 603 ==
LOC: EMEROO 14:55 → 3ANU 14:55 → SUATTDRO 21:18 → 3ANU 21:21
PROVIDERS: ADMIT Internal Medicine Hematology & Oncology; ATTEND Hospitalist

== ENCOUNTER 2018-04-22 09:25 | Inpatient (IN) ==
--- NOTE | 2018-04-22 09:32 | Emergency Department Note ---
Disposition Clinical Impression: Lower extremity edema Cellulitis Qualifiers: Site of cellulitis: extremity Site of cellulitis of extremity: lower extremity Laterality: right Qualified Code(s): L03.115 - Cellulitis of right lower limb Disposition: Admitted As Inpatient Condition: Fair Time of Disposition: 13:58 General Adult HPI - General Chief complaint: ED Extremity Problem,Nontraumatic Stated complaint: right leg swelling Time Seen by Provider: 04/22/18 09:27 Nursing Notes Reviewed: Yes Vital Signs Reviewed: Yes - History of Present Illness HPI Narrative: One-month history of right lower extremity cellulitis. Was previously treated in the hospital. Patient states right lower extremity began to swell yesterday. Denies any swelling previous to that. Right lower extremity is also painful and erythematous. Is currently on doxycycline for this. - Related Data Home Medications Medication Instructions Recorded Confirmed DULoxetine [Cymbalta] 60 mg PO DAILY 08/05/15 04/22/18 Docusate [Colace] 200 mg PO BID PRN 08/05/15 04/22/18 Donepezil [Aricept] 10 mg PO HS 08/05/15 04/22/18 Lactulose 10 gm PO DAILY PRN 08/05/15 04/22/18 Aspirin 81 mg PO DAILY 03/18/16 04/22/18 Metoprolol Tartrate [Lopressor] 50 mg PO BID 03/18/16 04/22/18 Furosemide [Lasix] 40 mg PO DAILY 07/30/16 04/22/18 Mirabegron [Myrbetriq] 50 mg PO DAILY 07/30/16 04/22/18 Fluticasone Propionate Nasal 50 mcg NS DAILY PRN 10/23/16 04/22/18 [Flonase] Loratadine [Allergy Relief] 10 mg PO DAILY 10/23/16 04/22/18 Amlodipine Besylate 10 mg PO DAILY 12/04/16 04/22/18 Famotidine [Pepcid] 20 mg PO BID 04/08/17 04/22/18 Atorvastatin [Lipitor] 40 mg PO HS 06/21/17 04/22/18 Clopidogrel [Plavix] 75 mg PO DAILY 06/21/17 04/22/18 Gabapentin [Neurontin] 100 mg PO BID 06/21/17 04/22/18 Levothyroxine [Synthroid] 175 mcg PO QAM 06/21/17 04/22/18 Lidocaine Patch [Lidoderm 5% patch] 1 each TP DAILY 06/21/17 04/22/18 Baclofen [Lioresal] 10 mg PO TID 08/30/17 04/22/18 Insulin NPH Human Isophane 65 unit SQ BIDWM 08/30/17 04/22/18 [Novolin N] Insulin Regular, Human [Novolin R] 20 unit SQ TID 08/30/17 04/22/18 Lisinopril [Zestril] 20 mg PO DAILY 03/15/18 04/22/18 Tizanidine HCl 4 mg PO BID PRN 03/15/18 04/22/18 Previous Rx's Medication Instructions Recorded Ferrous Sulfate 325 mg PO BIDWM #30 tablet 04/19/17 Donepezil [Aricept] 10 mg PO HS tablet 04/16/18 Doxycycline 100 mg PO BID 10 Days #20 capsule 04/16/18 HYDROcodone/Acet 10/325 mg [[place] 1 each PO Q6H PRN 2 Days #20 tablet 04/16/18 10-325 mg] Allergies Allergy/AdvReac Type Severity Reaction Status Date / Time adhesive tape Allergy Hives Verified 12/26/17 17:43 pregabalin [From Lyrica] Allergy Swelling Verified 12/26/17 17:43 of Lip/Tongue/Throat Sulfa (Sulfonamide Allergy PER PT Verified 12/26/17 17:43 Antibiotics) UNKNOWN REACTION All systems ED: reviewed and negative except as stated. Constitutional: Denies: fever, chills Cardiovascular: Denies: chest pain, syncope Respiratory: Denies: cough, dyspnea Gastrointestinal: Denies: abdominal pain, nausea, vomiting, diarrhea Musculoskeletal: Denies: back pain Integumentary: Reports: other (Redness swelling to lower extremity. One month of erythema 2 day history of swelling.). Denies: rash Past Medical History - Past Medical History Attestation: Yes The following information was validated with the patient. Source: patient Medical history: Reports: diabetes, renal disease, hypertension, CVA, thyroid disease, cancer, syncope Surgical history: Reports: orthopedic, other, thyroidectomy, other, appendectomy Psychiatric history: Reports: anxiety, depression - Social History Smoking Status: Never smoker Smokeless Tobacco Status: No Alcohol use: Reports: none Drug use: Reports: none Physical Exam - General Limitations: no limitations General appearance: alert, in no apparent distress - Head Head exam: atraumatic, normocephalic, normal inspection - Eye Eye exam: Present: normal appearance, PERRL, EOMI - ENT ENT exam: normal exam, normal oropharynx, mucous membranes moist - Neck Neck exam: Present: normal inspection, full ROM, trachea midline - Chest Chest inspection: Present: normal inspection, symmetric chest wall rise - Respiratory Respiratory exam: Present: normal lung sounds bilaterally. Absent: respiratory distress, accessory muscle use - Cardiovascular Cardiovascular exam: Present: regular rate, normal rhythm, normal heart sounds - Abdominal Exam Abdominal exam: Present: soft, Non-Tender, distention. Absent: tenderness, organomegaly - Extremities Exam Extremities exam: Present: tenderness (to left calf), normal capillary refill, other (left below the knee amputation. Right lower extremity erythema and swelling. Warmth as well. Edema to the knee. No pain to palpation behind right knee.) - Neurological Exam Neurological exam: Present: alert, oriented X3 - Psychiatric Psychiatric exam: Present: normal affect, normal mood - Skin Skin exam: Present: warm, dry, intact, normal color, erythema (To right lower extremity tibial area). Absent: rash, cyanosis, diaphoresis Course Course Narrative: Male patient presenting to emergency department from [facility]. Complaining of increasing right lower extremity swelling. Was recently discharged from here for a right lower external sialitis. Patient states that this swelling has increased significantly. He did have a negative ultrasound of his right lower extremity for DVT approximately 4 days ago. He currently has a greatly filter for previous DVT. He denies any shortness of breath or chest pain. He is well-appearing. He is on doxycycline currently for the cellulitis. The lower extremity is warm and erythematous. Ultrasound was negative for DVT. We will admit patient to the hospital for failed outpatient therapy of the cellulitis. He is agreeable with this. - Consultations Consultation #1: Dr Olivo accepted Pt in stable condition. Time: 12:54 Vital Signs Temperature 98.1 F 04/22/18 09:27 Pulse Rate 70 04/22/18 09:27 Respiratory Rate 18 04/22/18 09:27 Blood Pressure 153/85 04/22/18 09:27 O2 Sat by Pulse Oximetry 96 04/22/18 09:27 Temperature 98.1 F 04/22/18 09:27 Pulse Rate 72 04/22/18 13:24 Respiratory Rate 18 04/22/18 13:24 Blood Pressure 132/84 04/22/18 13:24 O2 Sat by Pulse Oximetry 99 04/22/18 13:24 Oxygen Delivery Oxygen Delivery Room Air Medical Decision Making - Medical Records Medical records reviewed: Yes I reviewed the patient's medical records. - Lab Data Lab results reviewed: Yes I reviewed the patient's lab results. Result diagrams: 04/22/18 11:19 04/22/18 11:19 Lab Results 04/22/18 04/22/18 Range/Units 11:19 11:19 WBC 7.2 (4.3-11.1) K/mcL RBC 2.91 L (4.19-5.50) M/mcL Hgb 9.0 L (12.9-16.9) g/dL Hct 28.1 L (37.5-50.1) % MCV 96.6 (83.0-100.0) fL MCH 30.9 (28.0-33.3) pg MCHC 32.0 (31.6-35.5) g/dL RDW 15.4 H (11.5-14.5) % Plt Count 88 L (140-400) K/mcL MPV 11.8 (9.4-12.4) fL Immature Gran % 1.3 (0-4) % Seg Neutrophils % 64.4 % Lymphocytes % 18.2 % Monocytes % 8.6 % Eosinophils % 6.5 % Basophils % 1.0 % Neutrophils # 4.6 (1.6-8.9) K/mcL Lymphocytes # 1.3 (0.6-4.6) K/mcL Monocytes # 0.6 (0.0-1.3) K/mcL Eosinophils # 0.5 (0.0-0.6) K/mcL Basophils # 0.1 (0.0-0.2) K/mcL Immature Plt Fraction 9.6 H (1.1-6.1) % Sodium 138 (136-145) mEq/L Potassium 4.4 (3.5-5.1) mEq/L Chloride 103 (98-107) mEq/L Carbon Dioxide 27 (23-29) mEq/L BUN 26 H (8-23) mg/dL Creatinine 1.07 (0.70-1.30) mg/dL Est GFR ( Amer) > 60 (> 60) Est GFR (Non-Af Amer) > 60 (> 60) BUN/Creatinine Ratio 24 (6-26) Glucose 199 H (70-105) mg/dL Calculated Osmolality 296 (280-300) Calcium 9.1 (8.6-10.3) mg/dL - Radiology Data Radiology results reviewed: Yes I reviewed the patient's radiology results. - EKG Data EKG #1 EKG attestation: Yes I reviewed and interpreted this EKG. EKG results narrative: Normal sinus rhythm at a rate of 66. NV interval is 139. QRS is 1:30. QTC is 447. QTC is 461. No signs of ST elevation. Does have a new right bundle branch block.
[2018-04-22] MEDS ORDERED: *HR* OxyCODONE/APAP 7.5/325 TABLET PO STA (09:54)
--- NOTE | 2018-04-22 10:36 | Emergency Department Note ---
Disposition Clinical Impression: Lower extremity edema Cellulitis Qualifiers: Site of cellulitis: extremity Site of cellulitis of extremity: lower extremity Laterality: right Qualified Code(s): L03.115 - Cellulitis of right lower limb Disposition: Admitted As Inpatient Condition: Fair General Adult HPI - General Chief complaint: ED Extremity Problem,Nontraumatic Stated complaint: right leg swelling Time Seen by Provider: 04/22/18 09:27 Source: patient Limitations: no limitations - History of Present Illness Pain Scale: 0 - Related Data Home Medications Medication Instructions Recorded Confirmed DULoxetine [Cymbalta] 60 mg PO DAILY 08/05/15 04/22/18 Docusate [Colace] 200 mg PO BID PRN 08/05/15 04/22/18 Donepezil [Aricept] 10 mg PO HS 08/05/15 04/22/18 Lactulose 10 gm PO DAILY PRN 08/05/15 04/22/18 Aspirin 81 mg PO DAILY 03/18/16 04/22/18 Metoprolol Tartrate [Lopressor] 50 mg PO BID 03/18/16 04/22/18 Furosemide [Lasix] 40 mg PO DAILY 07/30/16 04/22/18 Mirabegron [Myrbetriq] 50 mg PO DAILY 07/30/16 04/22/18 Fluticasone Propionate Nasal 50 mcg NS DAILY PRN 10/23/16 04/22/18 [Flonase] Loratadine [Allergy Relief] 10 mg PO DAILY 10/23/16 04/22/18 Amlodipine Besylate 10 mg PO DAILY 12/04/16 04/22/18 Famotidine [Pepcid] 20 mg PO BID 04/08/17 04/22/18 Atorvastatin [Lipitor] 40 mg PO HS 06/21/17 04/22/18 Clopidogrel [Plavix] 75 mg PO DAILY 06/21/17 04/22/18 Gabapentin [Neurontin] 100 mg PO BID 06/21/17 04/22/18 Levothyroxine [Synthroid] 175 mcg PO QAM 06/21/17 04/22/18 Lidocaine Patch [Lidoderm 5% patch] 1 each TP DAILY 06/21/17 04/22/18 Baclofen [Lioresal] 10 mg PO TID 08/30/17 04/22/18 Insulin NPH Human Isophane 65 unit SQ BIDWM 08/30/17 04/22/18 [Novolin N] Insulin Regular, Human [Novolin R] 20 unit SQ TID 08/30/17 04/22/18 Lisinopril [Zestril] 20 mg PO DAILY 03/15/18 04/22/18 Tizanidine HCl 4 mg PO BID PRN 03/15/18 04/22/18 Previous Rx's Medication Instructions Recorded Ferrous Sulfate 325 mg PO BIDWM #30 tablet 04/19/17 Donepezil [Aricept] 10 mg PO HS tablet 04/16/18 Doxycycline 100 mg PO BID 10 Days #20 capsule 04/16/18 HYDROcodone/Acet 10/325 mg [[place] 1 each PO Q6H PRN 2 Days #20 tablet 04/16/18 10-325 mg] Allergies Allergy/AdvReac Type Severity Reaction Status Date / Time adhesive tape Allergy Hives Verified 12/26/17 17:43 pregabalin [From Lyrica] Allergy Swelling Verified 12/26/17 17:43 of Lip/Tongue/Throat Sulfa (Sulfonamide Allergy PER PT Verified 12/26/17 17:43 Antibiotics) UNKNOWN REACTION Constitutional: Denies: fever, chills Cardiovascular: Denies: chest pain, syncope Respiratory: Denies: cough, dyspnea Gastrointestinal: Denies: abdominal pain, nausea, vomiting, diarrhea Musculoskeletal: Denies: back pain Integumentary: Reports: other (Redness swelling to lower extremity. One month of erythema 2 day history of swelling.). Denies: rash Past Medical History - Past Medical History Medical history: Reports: diabetes, renal disease, hypertension, CVA, thyroid disease, cancer, syncope Surgical history: Reports: orthopedic, other, thyroidectomy, other, appendectomy Psychiatric history: Reports: anxiety, depression - Social History Smoking Status: Never smoker Smokeless Tobacco Status: No Alcohol use: Reports: none Drug use: Reports: none Physical Exam - General Limitations: no limitations General appearance: alert, in no apparent distress Course Vital Signs Temperature 98.1 F 04/22/18 09:27 Pulse Rate 70 04/22/18 09:27 Respiratory Rate 18 04/22/18 09:27 Blood Pressure 153/85 04/22/18 09:27 O2 Sat by Pulse Oximetry 96 04/22/18 09:27 Temperature 98.1 F 04/22/18 09:27 Pulse Rate 72 04/22/18 13:24 Respiratory Rate 18 04/22/18 13:24 Blood Pressure 132/84 04/22/18 13:24 O2 Sat by Pulse Oximetry 99 04/22/18 13:24 Oxygen Delivery Oxygen Delivery Room Air Medical Decision Making - Lab Data Result diagrams: 04/22/18 11:19 04/22/18 11:19 Lab Results 04/22/18 04/22/18 Range/Units 11:19 11:19 WBC 7.2 (4.3-11.1) K/mcL RBC 2.91 L (4.19-5.50) M/mcL Hgb 9.0 L (12.9-16.9) g/dL Hct 28.1 L (37.5-50.1) % MCV 96.6 (83.0-100.0) fL MCH 30.9 (28.0-33.3) pg MCHC 32.0 (31.6-35.5) g/dL RDW 15.4 H (11.5-14.5) % Plt Count 88 L (140-400) K/mcL MPV 11.8 (9.4-12.4) fL Immature Gran % 1.3 (0-4) % Seg Neutrophils % 64.4 % Lymphocytes % 18.2 % Monocytes % 8.6 % Eosinophils % 6.5 % Basophils % 1.0 % Neutrophils # 4.6 (1.6-8.9) K/mcL Lymphocytes # 1.3 (0.6-4.6) K/mcL Monocytes # 0.6 (0.0-1.3) K/mcL Eosinophils # 0.5 (0.0-0.6) K/mcL Basophils # 0.1 (0.0-0.2) K/mcL Immature Plt Fraction 9.6 H (1.1-6.1) % Sodium 138 (136-145) mEq/L Potassium 4.4 (3.5-5.1) mEq/L Chloride 103 (98-107) mEq/L Carbon Dioxide 27 (23-29) mEq/L BUN 26 H (8-23) mg/dL Creatinine 1.07 (0.70-1.30) mg/dL Est GFR ( Amer) > 60 (> 60) Est GFR (Non-Af Amer) > 60 (> 60) BUN/Creatinine Ratio 24 (6-26) Glucose 199 H (70-105) mg/dL Calculated Osmolality 296 (280-300) Calcium 9.1 (8.6-10.3) mg/dL Attestation Statement - Attestation Attestation: I examined this patient and my medical decision-making was reviewed with the Resident Physician. I agree with the documented findings, disposition and treatment plan as described except to the extent set forth below. Patient presents to the ED with right leg swelling. Onset today. Patient states he was recently seen and admitted here for cellulitis of the same leg. An ultrasound for DVT that was negative at that time. On examination he has pitting edema to the right lower extremity. 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 Plan. Labs ultrasound. Ultrasound negative for DVT. Patient will be admitted for IV antibiotic for cellulitis refractory to outpatient treatment.
[2018-04-22] MEDS ORDERED: Piperacillin/Tazobactam 3.375 GM in 0.9 % Sodium Chloride Mini Bag 100 ML IVPB ONE (11:10)
[2018-04-22 11:32] LABS: Mean Corpuscular Volume 96.6 fL (83.0-100.0)
[2018-04-22 11:34] LABS: Basophils # 0.1 K/mcL (0.0-0.2); Eosinophils # 0.5 K/mcL (0.0-0.6); Eosinophils % 6.5 %; Hematocrit 28.1 % (37.5-50.1); Immature Granulocytes % 1.3 % (0-4); Immature Platelets 9.6 % (1.1-6.1); Lymphocytes # 1.3 K/mcL (0.6-4.6); Lymphocytes % 18.2 %; Mean Corpuscular Hemoglobin 30.9 pg (28.0-33.3); Mean Platelet Volume 11.8 fL (9.4-12.4); Monocytes # 0.6 K/mcL (0.0-1.3); Monocytes % 8.6 %; Neutrophils # 4.6 K/mcL (1.6-8.9); Red Blood Count 2.91 M/mcL (4.19-5.50); Red Cell Distribution Width 15.4 % (11.5-14.5); Segmented Neutrophils % 64.4 %
[2018-04-22 11:40] LABS: Platelet Count 88 K/mcL (140-400)
[2018-04-22 11:51] LABS: BUN/Creatinine Ratio 24 (6-26); Blood Urea Nitrogen 26 mg/dL (8-23); Calcium 9.1 mg/dL (8.6-10.3); Carbon Dioxide 27 mEq/L (23-29); Chloride 103 mEq/L (98-107); Glucose 199 mg/dL (70-105); Osmolality,Calculated 296 (280-300); Potassium 4.4 mEq/L (3.5-5.1); Sodium 138 mEq/L (136-145); eGFR For African Americans > 60 (> 60); eGFR For Non-African Americans > 60 (> 60)
[2018-04-22] MEDS ORDERED: Naloxone 0.4 MG/ML INJ IVP PRN (13:35)
[2018-04-22] MEDS ORDERED: Acetaminophen 325 MG TABLET PO PRN (13:35)
[2018-04-22] MEDS ORDERED: Fluticasone Propionate Nasal 50 MCG/SPRAY BOTTLE NS PRN (13:44)
[2018-04-22] MEDS ORDERED: tiZANidine 4 MG TABLET PO PRN (13:44)
[2018-04-22] MEDS ORDERED: Lactulose Oral Soln 20 GM/30 ML UDC PO PRN (13:44)
[2018-04-22] MEDS ORDERED: D5% in Water 1,000 ML IVC PRN (13:50)
[2018-04-22] MEDS ORDERED: *HR* Dextrose 50 % in Water (Syg) 50 ML SYRINGE IVP PRN (13:50)
[2018-04-22] MEDS ORDERED: Dextrose Gel 15 GM/37.5 ML TUBE PO PRN ×2 (13:50)
--- NOTE | 2018-04-22 15:05 | Internal Med History&Physical ---
<TeresaSanjiv - Last Filed: 04/22/18 15:47> Date of Encounter: 04/22/18 Time of Encounter: 13:00 Internal Medicine - H&P: HPI Chief complaint: Pain/swelling of the RLE Admitted From: Emergency Dept Plans for Post Hospital Care: Home History of present illness: Mr. 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 Pt. reports same sx approx 2 years ago. States he was previously treated and was taking doxycycline. Sx worsened over past two days. Pt. reports difficulty w/ ambulation d/t amputation of LLE and pain w/prosthesis use but denies recent illness, fever, chills, nausea, vomiting, CP, SOB, headache, changes in vision, unusual bleeding, abdominal pain, diarrhea, constipation, dizziness, lightheadedness, numbness, tingling, pre-syncope, or recent syncope. Past Med Surg Social Fam HX - Past Medical History Source: patient, old records reviewed Medical history: cancer (Thyroid w/thyroidectomy), CVA (1.5 years ago w/o residual weakness), diabetes, hypertension, renal disease, thyroid disease ( Thyroidectomy d/t cancer), syncope Additional medical history: thyroid cancer. prostate cancer Psychiatric history: anxiety, depression - Past Surgical History Surgical History: orthopedic, other, thyroidectomy, other, appendectomy Additional surgical history: left AKA. - Social History Smoking Status: Never smoker Smokeless Tobacco Status: No Alcohol use: none Drug use: none Current living situation: Home Activity Level: Uses cane/walker Recent Out of Country Travel Within the Last 8 Weeks: No Exposure or Possible Exposure to Illness During Travel: No - Family History Mother Race: Family Member Ethnicity: Non- Living Status: Hx Family Cardiac Disorders: Yes (CAD) Father Race: Family Member Ethnicity: Non- Living Status: Hx Family Cardiac Disorders: Yes (HD) Internal Medicine - H&P: Meds DULoxetine [Cymbalta] 60 mg PO DAILY 08/05/15 [History] Docusate [Colace] 200 mg PO BID PRN 08/05/15 [History] Donepezil [Aricept] 10 mg PO HS 08/05/15 [History] Lactulose 10 gm PO DAILY PRN 08/05/15 [History] Aspirin 81 mg PO DAILY 03/18/16 [History] Metoprolol Tartrate [Lopressor] 50 mg PO BID 03/18/16 [History] Furosemide [Lasix] 40 mg PO DAILY 07/30/16 [History] Mirabegron [Myrbetriq] 50 mg PO DAILY 07/30/16 [History] Fluticasone Propionate Nasal [Flonase] 50 mcg NS DAILY PRN 10/23/16 [History] Loratadine [Allergy Relief] 10 mg PO DAILY 10/23/16 [History] Amlodipine Besylate 10 mg PO DAILY 12/04/16 [History] Famotidine [Pepcid] 20 mg PO BID 04/08/17 [History] Ferrous Sulfate 325 mg PO BIDWM #30 tablet 04/19/17 [Rx] Atorvastatin [Lipitor] 40 mg PO HS 06/21/17 [History] Clopidogrel [Plavix] 75 mg PO DAILY 06/21/17 [History] Gabapentin [Neurontin] 100 mg PO BID 06/21/17 [History] Levothyroxine [Synthroid] 175 mcg PO QAM 06/21/17 [History] Lidocaine Patch [Lidoderm 5% patch] 1 each TP DAILY 06/21/17 [History] Baclofen [Lioresal] 10 mg PO TID 08/30/17 [History] Insulin NPH Human Isophane [Novolin N] 65 unit SQ BIDWM 08/30/17 [History] Insulin Regular, Human [Novolin R] 20 unit SQ TID 08/30/17 [History] Lisinopril [Zestril] 20 mg PO DAILY 03/15/18 [History] Tizanidine HCl 4 mg PO BID PRN 03/15/18 [History] Donepezil [Aricept] 10 mg PO HS tablet 04/16/18 [Rx] Doxycycline 100 mg PO BID 10 Days #20 capsule 04/16/18 [Rx] HYDROcodone/Acet 10/325 mg [[place] 10-325 mg] 1 each PO Q6H PRN 2 Days #20 tablet 04/16/18 [Rx] 3 Allergy/AdvReac Type Severity Reaction Status Date / Time adhesive tape Allergy Hives Verified 12/26/17 17:43 pregabalin [From Lyrica] Allergy Swelling Verified 12/26/17 17:43 of Lip/Tongue/Throat Sulfa (Sulfonamide Allergy PER PT Verified 12/26/17 17:43 Antibiotics) UNKNOWN REACTION All Systems PM: A 10-system review of systems was performed and is negative for pertinent findings except as documented above in the HPI. - Constitutional Constitutional: as per HPI, no chills, no fever(s), no night sweats - EENT Eyes: no change in vision, no discharge, no pain, no photophobia Ears: no ear discharge, no ear pain, no tinnitus Nose, mouth and throat: no dysphagia, no nasal discharge, no neck pain, no sore throat - Breasts Breasts: as per HPI - Cardiovascular Cardiovascular ROS IM: edema (RLE), no chest pain, no diaphoresis, no dyspnea, no lightheadedness, no palpitations, no syncope - Respiratory Respiratory: no cough, no dyspnea, no wheezing, no excessive phlegm production - Gastrointestinal Gastrointestinal: no abdominal pain, no diarrhea, no hematemesis, no hematochezia, no melena, no nausea, no vomiting - Genitourinary Genitourinary ROS male: as per HPI - Musculoskeletal Musculoskeletal ROS IM: no numbness, no tingling - Integumentary Integumentary IM: as per HPI, erythema (RLE d/t cellulitis), other (Edema of RLE d/t cellulitis), no rash, no unusual bruising - Neurological Neurological ROS: no confusion, no convulsions, no focal weakness, no numbness, no tingling, no tremor(s) - Psychiatric Psychiatric: as per HPI, anxiety, depression - Endocrine Endocrine IM: as per HPI - Hematologic/Lymphatic Hematologic/Lymphatic: no easy bruising - Allergic/Immunologic Allergic/Immunologic: as per HPI - Constitutional Vitals: Temp Pulse Resp BP Pulse Ox 98.1 F 72 18 132/84 99 04/22/18 09:27 04/22/18 13:24 04/22/18 13:24 04/22/18 13:24 04/22/18 13:24 General appearance: Present: cooperative, A&O X 3, pleasant, no acute distress, obese, answers questions appropriately - Head Head exam: Present: atraumatic, normocephalic - Eye Eye exam: Present: PERRL, conjuntiva pink, sclera anicteric Pupils: Present: PERRL - ENT ENT exam: Present: normal exam - Neck Neck exam general surgery: Present: supple, trachea midline. Absent: lymphadenopathy - Respiratory Respiratory exam: Present: CTAB. Absent: accessory muscle use, rales, rhonchi, wheezes - Cardiovascular Cardiovascular exam: Present: RRR, +S1, +S2. Absent: diastolic murmur, gallop, rubs, systolic murmur - GI/Abdominal GI/Abdominal exam: Present: normal bowel sounds, soft, no peritoneal signs. Absent: distended, tenderness - Rectal Rectal exam: Present: deferred - Additional comments: exam deferred. - Extremities Exam Extremities exam: Present: pedal edema (RLE), tenderness (RLE), warm, radial pulses palpable and symmetrical. Absent: calf tenderness, cyanotic - Back Exam Back exam: Present: normal inspection - Neurological Exam Neurological exam: Present: CN II-XII intact, oriented X3, no focal deficits. Absent: pronater drift, facial droop, speech deficit - Psychiatric Psychiatric exam: Present: normal affect, normal mood - Skin Skin exam: Present: dry, erythema (RLE d/t cellulitis), intact Internal Med - H&P Results - Labs CBC & Chem 7: 04/22/18 11:19 04/22/18 11:19 - EKG Data EKG shows normal: sinus rhythm - EKG Data Prior EKG available for review: yes Interpretation IM: suggestive of ischemia EKG comments: 04/22/18 15:14 EKG dated 03/15/18 shows sinus rhythm with nonspecific T-wave abnormality. EKG dated 04/22/18 shows sinus rhythm with RBBB, voltage criteria for LVH, and possible septal myocardial infarction (probably old). - Assessment and plan (1) Cellulitis of right lower extremity without foot Current Visit: Yes Status: Acute Assessment and plan: Acute on chronic cellulitis of the RLE for the past month. Pt. placed on PO doxycycline from previous admission when discharged. Sx worsened on failed OP therapy. No discharge or weeping of cellulitis. IVPB vancomycin and Zosyn started in ED. Will continue vancomycin w/Pharmacy dosing and Zosyn 3.375 gm Q8HR for infection coverage. No leukocytosis at this time. Pt. does not currently meet sepsis criteria (afebrile and asymptomatic) but will be closely watched. Blood cultures x2 ordered. Pt. discussed w/Dr. Olivo who agrees w/plan of care. Pt. is high risk for further morbidity and infection based on current worsening sx, failed OP therapy, DM, hx, and risk factors. Inpatient. (2) Diabetes Current Visit: Yes Status: Chronic Assessment and plan: Hx of chronic diabetes controlled w/insulin. BG checks ACHS. A1c in a.m. labs. Continue pts. home insulin and add low-dose correction insulin sliding scale w/ hypoglycemic protocol. Qualifiers: Diabetes mellitus type: type 2 Diabetes mellitus half-way insulin use: unspecified middle or intermediate school principal insulin use status Diabetes mellitus complication status : with unspecified complications Qualified Code(s): E11.8 - Type 2 diabetes mellitus with unspecified complications (3) HTN (hypertension) Current Visit: Yes Status: Chronic Assessment and plan: Hx of chronic HTN. Monitor pt. and VS. Continue pts. Amlodipine, Lopressor, and lisinopril. Qualifiers: Hypertension type: essential hypertension Qualified Code(s): I10 - Essential (primary) hypertension (4) HLD (hyperlipidemia) Current Visit: Yes Status: Chronic Assessment and plan: Hx of chronic HLD. Lipid panel in a.m. labs. Continue pts. Lipitor. Qualifiers: Hyperlipidemia type: pure hypercholesterolemia Qualified Code(s): E78.00 - Pure hypercholesterolemia, unspecified; E78.0 - Pure hypercholesterolemia (5) GERD (gastroesophageal reflux disease) Current Visit: Yes Status: Chronic Assessment and plan: Hx of chronic GERD. IVP Phenergan 12.5 mg every 6 hour when necessary for nausea/vomiting. IVP Protonix 40 mg daily. Qualifiers: Esophagitis presence: esophagitis presence not specified Qualified Code(s) : K21.9 - Gastro-esophageal reflux disease without esophagitis (6) Dementia Current Visit: Yes Status: Chronic Assessment and plan: Hx of chronic dementia w/o behavioral disturbance. Continue pts. Aricept. Qualifiers: Dementia type: unspecified type Dementia behavioral disturbance: without behavioral disturbance Qualified Code(s): F03.90 - Unspecified dementia without behavioral disturbance (7) Anemia Current Visit: Yes Status: Chronic Assessment and plan: Hx of chronic anemia w/Hgb of 9.0 and Hct of 28.1 on admission, down from 10.2 and 31.1 on 04/16. Pt. denies unusual bleeding. Iron profile ordered. Monitor H/H in f/u labs. Qualifiers: Anemia type: iron deficiency Iron deficiency anemia type: other iron deficiency Qualified Code(s): D50.8 - Other iron deficiency anemias (8) CAD (coronary artery disease) Current Visit: Yes Status: Chronic Assessment and plan: Hx of chronic CAD. Continue pts. Aspirin therapy, Lipitor, Plavix, Lisinopril, and Lopressor. Qualifiers: Coronary Disease-Associated Artery/Lesion type: [place] artery [place] vs. transplanted heart: [place] heart Associated angina: without angina Qualified Code(s): I25.10 - Atherosclerotic heart disease of [place] coronary artery without angina pectoris (9) Hypothyroidism Current Visit: Yes Status: Chronic Assessment and plan: Hx of chronic hypothyroidism d/t thyroid cancer resulting in thyroidectomy. Continue pts. Synthroid. Qualifiers: Hypothyroidism type: postoperative Qualified Code(s): E89.0 - Postprocedural hypothyroidism (10) Anxiety and depression Current Visit: Yes Status: Chronic Assessment and plan: Hx of chronic anxiety and depression. Continue pts. Cymbalta. (11) Overactive bladder Current Visit: Yes Status: Chronic Assessment and plan: Hx of chronic overactive bladder. Continue pts. Myrbetriq. Monitor I&O. (12) Muscle spasm Current Visit: Yes Status: Chronic Assessment and plan: Hx of chronic muscle spasms. Continue pts. Tizanidine and baclofen. (13) DVT prophylaxis Current Visit: Yes Status: Acute Assessment and plan: Heparin 5,000 units SQ Q8 for DVT prophylaxis. Monitor pt. for signs of bleeding. - Time Spent With Patient Total time spent is greater than 50% in coordination of care (as documented) at patient's floor/unit and/or counseling patient: Greater than 35 minutes <Woo Olivo - Last Filed: 04/22/18 17:12> Date of Encounter: 04/22/18 Internal Medicine - H&P: HPI History of present illness: Mr. Borges is a 72 year old male All Systems PM: A 10-system review of systems was performed and is negative for pertinent findings except as documented above in the HPI. - Constitutional Vitals: Temp Pulse Resp BP Pulse Ox 98 F 60 17 112/66 96 04/22/18 16:10 04/22/18 16:10 04/22/18 16:10 04/22/18 16:10 04/22/18 16:10 Internal Med - H&P Results - Labs CBC & Chem 7: 04/22/18 11:19 04/22/18 11:19 - Attending Attestation I examined this patient and my medical decision-making was reviewed with the Resident Physician. I agree with the documented findings, disposition and treatment plan as described except to the extent set forth below. - Time Spent With Patient Total time spent is greater than 50% in coordination of care (as documented) at patient's floor/unit and/or counseling patient:
[2018-04-22] MEDS ORDERED: *HR* Promethazine 25 MG/ML VIAL IVP PRN (15:36)
[2018-04-22] MEDS: Baclofen 10 MG TABLET PO SCH ×2 (15:58→19:51)
[2018-04-22] MEDS: Pantoprazole 40 MG VIAL IVP SCH (15:58)
[2018-04-22] MEDS: *HR* Heparin 5,000 UNIT/ML VIAL SQ SCH ×2 (15:59→23:35)
[2018-04-22] MEDS: Insulin NPH 100 UNIT/ML (x5UNIT) SQ SCH (17:44)
[2018-04-22] MEDS: Insulin LISPRO 300 UNITS/3 ML VIAL SQ SCH ×2 (17:44)
[2018-04-22] MEDS: Piperacillin/Tazobactam 3.375 GM in 0.9 % Sodium Chloride Mini Bag 100 ML IVPB SCH (19:50)
[2018-04-22] MEDS: Gabapentin 100 MG CAPSULE PO SCH (19:51)
[2018-04-22] MEDS: Famotidine 20 MG TABLET PO SCH (19:51)
[2018-04-22] MEDS: *HR* HYDROcodone/Acet 10/325 mg TABLET PO PRN (19:51)
--- NOTE | 2018-04-22 20:57 | Electrocardiograph Report ---
[facility] Test Date: 2018-04-22 Pat Name: Keanu Borges Department: 104 Room: 3A22 Gender: M [employer] Manager: AM : 1945 Requested By: Kathryn Martinez Order Number: [id number] Reading MD: Mynor Worley Measurements Intervals [place] Rate: 66 P: 30 VT: 139 QRS: -20 QRSD: 130 T: 22 QT: 447 QTc: 461 Interpretive Statements SINUS RHYTHM RIGHT BUNDLE BRANCH BLOCK Electronically Signed On 04-22-2018 20:56:27 EDT by Mynor Worley
[2018-04-22] MEDS ORDERED: Insulin LISPRO 300 UNITS/3 ML VIAL SQ SCH (21:00)
--- NOTE | 2018-04-22 22:03 | Event Note ---
Date of Encounter: 04/22/18 Time of Encounter: 18:27 Notified by patient's nurse JUSTYN Coleman that patient wished to have a wheelchair in room to go to and from bathroom. Nurse explained to patient that he was risk for falls and would not be able to have wheelchair but could have assistance to and from bathroom. Nurse reported he became upset. Went to see patient and explained that I had placed him is falls precautions, up with assist , and bedrest with bathroom privileges with assist only due to amputation of LLE , no prosthesis present, instability, and pain in RLE d/t cellulitis. Pt. stated that we were not allowing him to poop or pee. I reiterated to the pt. that he was high risk for falls d/t current conditions and that I could place order for bedside commode w/assist only. Pt. declined. I informed pt. that his safety and reducing the risk for falls and injury were paramount and he would have to remain falls precautions and up with assist. Pt. was instructed to place call light on for assistance. Pt. expressed understanding to what I was instructing him to do and agreed to plan of care.
[2018-04-23] MEDS ORDERED: Menthol 9.1 MG LOZENGE PO PRN (00:35)
[2018-04-23 03:26] LABS: Mean Corpuscular HGB Conc 31.5 g/dL (31.6-35.5); Mean Platelet Volume 12.4 fL (9.4-12.4); Red Cell Distribution Width 15.2 % (11.5-14.5)
[2018-04-23 03:28] LABS: Basophils # 0.1 K/mcL (0.0-0.2); Basophils % 0.9 %; Eosinophils # 0.5 K/mcL (0.0-0.6); Eosinophils % 6.1 %; Hematocrit 29.2 % (37.5-50.1); Hemoglobin 9.2 g/dL (12.9-16.9); Immature Granulocytes % 1.4 % (0-4); Immature Platelets 9.5 % (1.1-6.1); Lymphocytes # 1.6 K/mcL (0.6-4.6); Lymphocytes % 19.6 %; Mean Corpuscular Volume 98.3 fL (83.0-100.0); Monocytes # 0.8 K/mcL (0.0-1.3); Monocytes % 10.3 %; Red Blood Count 2.97 M/mcL (4.19-5.50); Segmented Neutrophils % 61.7 %
[2018-04-23 03:34] LABS: % Iron Saturation 16 % (20-55); Iron 44 mcg/dL (65-175); Transferrin 198 mg/dL (203-362)
[2018-04-23 03:36] LABS: Albumin 3.5 g/dL (3.5-5.7); Albumin/Globulin Ratio 1.2 (1.1-2.2); Bilirubin,Total 0.5 mg/dL (0.3-1.0); Calcium 8.8 mg/dL (8.6-10.3); Chol/HDL Ratio 3.7 (0-4.9); Magnesium 1.6 mg/dL (1.6-2.6); Potassium 4.5 mEq/L (3.5-5.1); Total Protein 6.5 g/dL (6.4-8.9)
[2018-04-23 03:38] LABS: Neutrophils # 4.9 K/mcL (1.6-8.9); Platelet Count 86 K/mcL (140-400)
[2018-04-23] MEDS: Piperacillin/Tazobactam 3.375 GM in 0.9 % Sodium Chloride Mini Bag 100 ML IVPB SCH (05:24)
[2018-04-23 06:39] LABS: Estimated Average Glucose 143 mg/dl; Hemoglobin A1C 6.6 %
[2018-04-23] MEDS ORDERED: Aminoglycoside Consult 1 EACH MC ONE (08:58)
[2018-04-23] MEDS ORDERED: Furosemide 40 MG TABLET PO SCH (09:00)
[2018-04-23] MEDS ORDERED: (Mirabegron [Myrbetriq] 50 MG) PO SCH (09:00)
[2018-04-23] MEDS: Loratadine 10 MG TABLET PO SCH (09:43)
[2018-04-23] MEDS: Lisinopril 20 MG TABLET PO SCH (09:44)
[2018-04-23] MEDS: Famotidine 20 MG TABLET PO SCH (09:44)
[2018-04-23] MEDS: Pantoprazole 40 MG VIAL IVP SCH (09:44)
[2018-04-23] MEDS: Baclofen 10 MG TABLET PO SCH ×3 (09:44→21:25)
[2018-04-23] MEDS: amLODIPine 5 MG TABLET PO SCH (09:44)
[2018-04-23] MEDS: *HR* Heparin 5,000 UNIT/ML VIAL SQ SCH ×3 (09:44→23:36)
[2018-04-23] MEDS: Aspirin 81 MG TAB.CHEW PO SCH (09:44)
[2018-04-23] MEDS: Gabapentin 100 MG CAPSULE PO SCH ×2 (09:44→21:25)
[2018-04-23] MEDS: Insulin LISPRO 300 UNITS/3 ML VIAL SQ SCH ×6 (09:45→21:26)
[2018-04-23] MEDS: Insulin NPH 100 UNIT/ML (x5UNIT) SQ SCH (09:47)
--- NOTE | 2018-04-23 10:34 | Internal Med Progress Note ---
<Tommy Patel - Last Filed: 04/23/18 17:02> Date of Encounter: 04/23/18 Time of Encounter: 08:55 - Assessment and plan (1) Cellulitis of right lower extremity without foot Current Visit: Yes Status: Acute Assessment and plan: Improving Mixed picture of possible cellulitis vs venous stasis dermatitis of the RLE ( noted to be worsening for the past month). Failed outpatient tx with doxycycline. Started on vancomycin and Zosyn inpatient. Plan to discontinue vancomycin, switch zosyn to ancef (1gm TID), and start clotrimazole-betamethasone cream for the dry skin. Patient notes reduction/recession of erythema down RLE. Continue to monitor. (2) CAD (coronary artery disease) Current Visit: Yes Status: Chronic Assessment and plan: Hx of chronic CAD. Continue pts. Aspirin therapy, Lipitor, Plavix, Lisinopril, and Lopressor. Qualifiers: Coronary Disease-Associated Artery/Lesion type: [place] artery [place] vs. transplanted heart: [place] heart Associated angina: without angina Qualified Code(s): I25.10 - Atherosclerotic heart disease of [place] coronary artery without angina pectoris (3) Hypothyroidism Current Visit: Yes Status: Chronic Assessment and plan: Hx of chronic hypothyroidism d/t thyroid cancer resulting in thyroidectomy. Continue pts. Synthroid. Qualifiers: Hypothyroidism type: postoperative Qualified Code(s): E89.0 - Postprocedural hypothyroidism (4) Anemia Current Visit: Yes Status: Chronic Assessment and plan: Hx of chronic anemia, stable, Hgb of 9.2 and Hct of 29.2. Pt. denies unusual bleeding. Iron profile ordered. ---Iron was low at 4, %sat was low at 16% , and transferrin was low at 198. Ferritin not checked. Currenty on iron supplementation. Monitor H/H in f/u labs. Qualifiers: Anemia type: iron deficiency Iron deficiency anemia type: other iron deficiency Qualified Code(s): D50.8 - Other iron deficiency anemias (5) Anxiety and depression Current Visit: Yes Status: Chronic Assessment and plan: Hx of chronic anxiety and depression. Continue pts. Cymbalta. (6) Diabetes Current Visit: Yes Status: Chronic Assessment and plan: Hx of chronic diabetes controlled w/insulin. BG checks ACHS. A1c was 6.6% (this is under the goal of <7%). Continue pts. home insulin and add low-dose correction insulin sliding scale w/ hypoglycemic protocol. 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 Controlled, last BP was 120/80. Continue Amlodipine, Lopressor, and lisinopril. Qualifiers: Hypertension type: essential hypertension Qualified Code(s): I10 - Essential (primary) hypertension (8) HLD (hyperlipidemia) Current Visit: Yes Status: Chronic Assessment and plan: Hx of chronic HLD. Lipid panel checked, well controlled. Continue Lipitor. Qualifiers: Hyperlipidemia type: pure hypercholesterolemia Qualified Code(s): E78.00 - Pure hypercholesterolemia, unspecified; E78.0 - Pure hypercholesterolemia (9) GERD (gastroesophageal reflux disease) Current Visit: Yes Status: Chronic Assessment and plan: Hx of chronic GERD. IVP Phenergan 12.5 mg every 6 hour when necessary for nausea/vomiting. IVP Protonix 40 mg daily. Qualifiers: Esophagitis presence: esophagitis presence not specified Qualified Code(s) : K21.9 - Gastro-esophageal reflux disease without esophagitis (10) Dementia Current Visit: Yes Status: Chronic Assessment and plan: Hx of chronic dementia w/o behavioral disturbance. Continue pts. Aricept. Qualifiers: Dementia type: unspecified type Dementia behavioral disturbance: without behavioral disturbance Qualified Code(s): F03.90 - Unspecified dementia without behavioral disturbance (11) Overactive bladder Current Visit: Yes Status: Chronic Assessment and plan: Hx of chronic overactive bladder. Continue home meds. Monitor I&O. (12) THOMAS (acute kidney injury) Current Visit: No Status: Acute Assessment and plan: Cr. Increased from 1.03 yesterday to 1.5 today. Likely secondary to Vancomycin for cellulitis treatment. Vancomycin discontinued today. Will follow labs. (Of note Cr slight higher than past 2 weeks but much lower than 1 month ago with max Cr of 9.) (13) DVT prophylaxis Current Visit: Yes Status: Acute Assessment and plan: Heparin 5,000 units SQ Q8 for DVT prophylaxis. Monitor pt. for signs of bleeding. (14) Muscle spasm Current Visit: Yes Status: Chronic Assessment and plan: Hx of chronic muscle spasms. Continue pts. Tizanidine and baclofen. - Time Spent With Patient Total time spent is greater than 50% in coordination of care (as documented) at patient's floor/unit and/or counseling patient: - Subjective Interval history: Patient seen and examined sitting up on bedside; he was frustrated at not having his polygrip here for his dentures, patient was waiting to eat breakfast. No acute distress. Patient states he has already noted recession of the erythema on his right lower extremity. Notes continued pain of RLE that is chronic. Denies chest pain, shortness of breath. Notes improving swelling of RLE. - Constitutional Vitals: Temp Pulse Resp BP Pulse Ox 98.9 F 65 18 112/67 96 04/23/18 06:47 04/23/18 06:47 04/23/18 06:47 04/23/18 06:47 04/23/18 06:47 General appearance: Present: cooperative, A&O X 3, pleasant, no acute distress, obese, answers questions appropriately - Head Head exam: Present: atraumatic, normal inspection, normocephalic - Eye Eye exam: Present: normal appearance, sclera anicteric - ENT ENT exam: Present: mucous membranes moist - Neck Neck exam general surgery: Present: full ROM, normal inspection - Respiratory Respiratory exam: Present: CTAB. Absent: respiratory distress, rhonchi, stridor , wheezes - Cardiovascular Cardiovascular exam: Present: RRR, +S1, +S2. Absent: gallop, rubs - GI/Abdominal GI/Abdominal exam: Present: normal bowel sounds, soft. Absent: tenderness - Extremities Exam Extremities exam: Present: tenderness (to R distal extremity (no pain above the knee.), warm. Absent: cyanotic Additional comments: LLE: AKA RLE: 1+ edema; erythema of distal extremity (mao and calf, foot is spared); gross sensation intact to R foot; capillary refill <3 sec. pedal pulse 2+ - Neurological Exam Neurological exam: Present: alert, oriented X3, no focal deficits. Absent: speech deficit - Skin Skin exam: Present: dry, warm Additional comments: see extremity exam Internal Medicine: Result - Labs CBC & Chem 7: 04/23/18 02:50 04/23/18 02:50 Labs: Short CBC 04/23/18 Range/Units 02:50 WBC 8.0 (4.3-11.1) K/mcL Hgb 9.2 L (12.9-16.9) g/dL Hct 29.2 L (37.5-50.1) % Plt Count 86 L (140-400) K/mcL Neutrophils # 4.9 (1.6-8.9) K/mcL BMP 04/23/18 02:50 Sodium 140 Potassium 4.5 Chloride 103 Carbon Dioxide 26 BUN 28 H Creatinine 1.50 H Glucose 145 H Calcium 8.8 Liver Function 04/23/18 Range/Units 02:50 Total Bilirubin 0.5 (0.3-1.0) mg/dL AST 34 (13-39) Units/L ALT 23 (7-52) Units/L Alkaline Phosphatase 93 (34-104) Units/L Albumin 3.5 (3.5-5.7) g/dL Consult Discharge Plan - Plan Referrals: Chandan Fitzgerald MD [Primary Care Provider] - <Anel Davila - Last Filed: 04/23/18 18:09> Date of Encounter: 04/23/18 - Assessment and plan (1) CAD (coronary artery disease) Current Visit: Yes Status: Chronic Qualifiers: Coronary Disease-Associated Artery/Lesion type: [place] artery [place] vs. transplanted heart: [place] heart Associated angina: without angina Qualified Code(s): I25.10 - Atherosclerotic heart disease of [place] coronary artery without angina pectoris (2) DVT prophylaxis Current Visit: Yes Status: Acute (3) Hypothyroidism Current Visit: Yes Status: Chronic Qualifiers: Hypothyroidism type: postoperative Qualified Code(s): E89.0 - Postprocedural hypothyroidism (4) Anemia Current Visit: Yes Status: Chronic Qualifiers: Anemia type: iron deficiency Iron deficiency anemia type: other iron deficiency Qualified Code(s): D50.8 - Other iron deficiency anemias (5) THOMAS (acute kidney injury) Current Visit: No Status: Acute (6) Anxiety and depression Current Visit: Yes Status: Chronic (7) Cellulitis of right lower extremity without foot Current Visit: Yes Status: Acute (8) Diabetes Current Visit: Yes Status: Chronic Qualifiers: Diabetes mellitus type: type 2 Diabetes mellitus watermelon harvesting supervisor insulin use: unspecified watermelon harvesting supervisor insulin use status Diabetes mellitus complication status : with unspecified complications Qualified Code(s): E11.8 - Type 2 diabetes mellitus with unspecified complications (9) HTN (hypertension) Current Visit: Yes Status: Chronic Qualifiers: Hypertension type: essential hypertension Qualified Code(s): I10 - Essential (primary) hypertension (10) HLD (hyperlipidemia) Current Visit: Yes Status: Chronic Qualifiers: Hyperlipidemia type: pure hypercholesterolemia Qualified Code(s): E78.00 - Pure hypercholesterolemia, unspecified; E78.0 - Pure hypercholesterolemia (11) GERD (gastroesophageal reflux disease) Current Visit: Yes Status: Chronic Qualifiers: Esophagitis presence: esophagitis presence not specified Qualified Code(s) : K21.9 - Gastro-esophageal reflux disease without esophagitis (12) Dementia Current Visit: Yes Status: Chronic Qualifiers: Dementia type: unspecified type Dementia behavioral disturbance: without behavioral disturbance Qualified Code(s): F03.90 - Unspecified dementia without behavioral disturbance (13) Overactive bladder Current Visit: Yes Status: Chronic (14) Muscle spasm Current Visit: Yes Status: Chronic - Time Spent With Patient Total time spent is greater than 50% in coordination of care (as documented) at patient's floor/unit and/or counseling patient: - Constitutional Vitals: Temp Pulse Resp BP Pulse Ox 98.8 F 66 18 120/80 95 04/23/18 15:03 04/23/18 15:03 04/23/18 15:03 04/23/18 15:03 04/23/18 15:03 Internal Medicine: Result - Labs CBC & Chem 7: 04/23/18 02:50 04/23/18 02:50 Labs: Short CBC 04/23/18 Range/Units 02:50 WBC 8.0 (4.3-11.1) K/mcL Hgb 9.2 L (12.9-16.9) g/dL Hct 29.2 L (37.5-50.1) % Plt Count 86 L (140-400) K/mcL Neutrophils # 4.9 (1.6-8.9) K/mcL BMP 04/23/18 02:50 Sodium 140 Potassium 4.5 Chloride 103 Carbon Dioxide 26 BUN 28 H Creatinine 1.50 H Glucose 145 H Calcium 8.8 Liver Function 04/23/18 Range/Units 02:50 Total Bilirubin 0.5 (0.3-1.0) mg/dL AST 34 (13-39) Units/L ALT 23 (7-52) Units/L Alkaline Phosphatase 93 (34-104) Units/L Albumin 3.5 (3.5-5.7) g/dL - Attending Attestation I examined this patient and my medical decision-making was reviewed with the Resident Physician Dr. Manning. I agree with the documented findings, disposition and treatment plan as described except to the extent set forth below. Mr. Borges is a 72 year old male w PMH of diabetes controlled with insulin, CKD-2, HTN, hx of previous CVA 1.5 years ago, hx of thyroid cancer w/ thyroidectomy, presented to ED with pain and swelling in the RLE for the past month which has been worsening. He was recently discharged from the hospital with PO Doxycycline. Pt got admitted y/d and started him on Zosyn and Vancomycin. Pt stated his leg swelling and erythema improving now Gen: A, A< O x3 Chest: Diminished BS Ext": improving erythema and swelling in Rt leg a/p 1. Acute Rt LE cellulites 2. Chronic venous stasis changes switched abx to Ancef started him on topicla Clotrimazole and steroid cream
[2018-04-23] MEDS: Clotrimazole/Betameth Dip CRM 45 APPL/45 GM TUBE TP SCH ×2 (12:00→21:29)
[2018-04-23] MEDS: ceFAZolin 1,000 MG in 0.9 % Sodium Chloride Mini Bag 100 ML IVPB SCH ×2 (16:50→23:35)
[2018-04-23] MEDS: *HR* HYDROcodone/Acet 10/325 mg TABLET PO PRN (16:53)
[2018-04-24 05:37] LABS: Hemoglobin 9.5 g/dL (12.9-16.9); Monocytes % 9.5 %; Red Cell Distribution Width 15.5 % (11.5-14.5)
[2018-04-24 05:39] LABS: Basophils # 0.1 K/mcL (0.0-0.2); Basophils % 0.9 %; Eosinophils # 0.6 K/mcL (0.0-0.6); Eosinophils % 7.9 %; Hematocrit 30.1 % (37.5-50.1); Immature Granulocytes % 1.1 % (0-4); Lymphocytes # 1.4 K/mcL (0.6-4.6); Mean Corpuscular HGB Conc 31.6 g/dL (31.6-35.5); Mean Corpuscular Hemoglobin 30.9 pg (28.0-33.3); Mean Platelet Volume 12.3 fL (9.4-12.4); Monocytes # 0.7 K/mcL (0.0-1.3); Neutrophils # 4.6 K/mcL (1.6-8.9); Red Blood Count 3.07 M/mcL (4.19-5.50); Segmented Neutrophils % 61.6 %
[2018-04-24 05:51] LABS: BUN/Creatinine Ratio 18 (6-26); Blood Urea Nitrogen 24 mg/dL (8-23); Calcium 8.9 mg/dL (8.6-10.3); Carbon Dioxide 29 mEq/L (23-29); Chloride 103 mEq/L (98-107); Glucose 111 mg/dL (70-105); Osmolality,Calculated 293 (280-300); Potassium 4.3 mEq/L (3.5-5.1); Sodium 139 mEq/L (136-145); eGFR For African Americans > 60 (> 60); eGFR For Non-African Americans 54 (> 60)
[2018-04-24] MEDS: *HR* HYDROcodone/Acet 10/325 mg TABLET PO PRN ×2 (05:55→20:19)
[2018-04-24 05:56] LABS: Platelet Count 97 K/mcL (140-400)
[2018-04-24] MEDS: Insulin LISPRO 300 UNITS/3 ML VIAL SQ SCH ×7 (08:41→20:20)
--- NOTE | 2018-04-24 09:46 | Internal Med Progress Note ---
<Eugenia Koch - Last Filed: 04/24/18 09:41> Date of Encounter: 04/24/18 Time of Encounter: 09:42 - Assessment and plan (1) Cellulitis of right lower extremity without foot Current Visit: Yes Status: Acute Assessment and plan: Improving Mixed picture of possible cellulitis vs venous stasis dermatitis of the RLE Failed outpatient tx with doxycycline. Discontinued vancomycin, switch zosyn to ancef (1gm TID), and started clotrimazole-betamethasone cream for the dry skin. Patient notes reduction/recession of erythema down RLE. Continue to monitor. Will add rajendra wrap (2) THOMAS (acute kidney injury) Current Visit: Yes Status: Acute Assessment and plan: Cr. Increased from 1.03 to 1.5 now at 1.31 Likely secondary to Vancomycin for cellulitis treatment. Vancomycin discontinued Will follow labs. (3) DM (diabetes mellitus), type 2 Current Visit: Yes Status: Chronic Assessment and plan: Hx of chronic diabetes controlled w/insulin. BG checks ACHS. A1c was 6.6% (this is under the goal of <7%). Continue pts. home insulin and add low-dose correction insulin sliding scale w/ hypoglycemic protocol. Qualifiers: Diabetes mellitus watermelon inspector insulin use: with senior living use Diabetes mellitus complication status: with kidney complications Diabetes mellitus complication detail: with chronic kidney disease Chronic kidney disease stage : stage 3 (moderate) Qualified Code(s): E11.22 - Type 2 diabetes mellitus with diabetic chronic kidney disease; N18.3 - Chronic kidney disease, stage 3 ( moderate); N18.3 - Chronic kidney disease, stage 3 (moderate); Z79.4 - manager intermediate (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 of insulin; Z79.4 - [facility] (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 of insulin; Z79.4 - manager intermediate (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 of insulin; Z79.4 - manager intermediate (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 of insulin (4) Anemia Current Visit: Yes Status: Chronic Assessment and plan: Hx of chronic anemia, stable, Hgb of 9.2 and Hct of 29.2. Pt. denies unusual bleeding. Currenty on iron supplementation. Monitor H/H in f/u labs. Qualifiers: Anemia type: iron deficiency Qualified Code(s): D50.0 - Iron deficiency anemia secondary to blood loss (chronic) (5) Hypertension Current Visit: Yes Status: Chronic Assessment and plan: Hx of chronic HTN. Controlled Continue Amlodipine, Lopressor, and lisinopril. Qualifiers: Hypertension type: essential hypertension Qualified Code(s): I10 - Essential (primary) hypertension (6) Hypothyroidism Current Visit: Yes Status: Chronic Assessment and plan: Hx of chronic hypothyroidism d/t thyroid cancer resulting in thyroidectomy. Continue pts. Synthroid. Qualifiers: Hypothyroidism type: unspecified Qualified Code(s): E03.9 - Hypothyroidism , unspecified (7) CAD (coronary artery disease) Current Visit: Yes Status: Chronic Assessment and plan: Hx of chronic CAD. Continue pts. Aspirin therapy, Lipitor, Plavix, Lisinopril, and Lopressor. Qualifiers: Coronary Disease-Associated Artery/Lesion type: [place] artery [place] vs. transplanted heart: unspecified whether [place] or transplanted heart Associated angina: angina presence unspecified Qualified Code(s): I25.10 - Atherosclerotic heart disease of [place] coronary artery without angina pectoris (8) Anxiety and depression Current Visit: Yes Status: Chronic Assessment and plan: Hx of chronic anxiety and depression. Continue pts. Cymbalta. (9) HLD (hyperlipidemia) Current Visit: Yes Status: Chronic Assessment and plan: Hx of chronic HLD. Lipid panel checked, well controlled. Continue Lipitor. Qualifiers: Hyperlipidemia type: pure hypercholesterolemia Qualified Code(s): E78.00 - Pure hypercholesterolemia, unspecified; E78.0 - Pure hypercholesterolemia (10) GERD (gastroesophageal reflux disease) Current Visit: Yes Status: Chronic Assessment and plan: Hx of chronic GERD. IVP Phenergan 12.5 mg every 6 hour when necessary for nausea/vomiting. IVP Protonix 40 mg daily. Qualifiers: Esophagitis presence: esophagitis presence not specified Qualified Code(s) : K21.9 - Gastro-esophageal reflux disease without esophagitis (11) Overactive bladder Current Visit: Yes Status: Chronic Assessment and plan: Hx of chronic overactive bladder. Continue home meds. Monitor I&O. (12) Dementia Current Visit: Yes Status: Chronic Assessment and plan: Hx of chronic dementia w/o behavioral disturbance. Continue pts. Aricept. Qualifiers: Dementia type: unspecified type Dementia behavioral disturbance: without behavioral disturbance Qualified Code(s): F03.90 - Unspecified dementia without behavioral disturbance (13) Muscle spasm Current Visit: Yes Status: Chronic Assessment and plan: Hx of chronic muscle spasms. Continue pts. Tizanidine and baclofen. (14) DVT prophylaxis Current Visit: Yes Status: Acute Assessment and plan: Heparin 5,000 units SQ Q8 for DVT prophylaxis. Monitor pt. for signs of bleeding. - Time Spent With Patient Total time spent is greater than 50% in coordination of care (as documented) at patient's floor/unit and/or counseling patient: - Subjective Interval history: Patient upset this morning because he has lost his wallet. Notes continued pain of RLE that is chronic. Denies chest pain, shortness of breath. Notes improving swelling of RLE. - Constitutional Vitals: Temp Pulse Resp BP Pulse Ox 98.8 F 57 16 126/72 96 04/24/18 07:14 04/24/18 07:14 04/24/18 07:14 04/24/18 07:14 04/24/18 07:14 General appearance: Present: A&O X 3, no acute distress, obese, answers questions appropriately - Head Head exam: Present: atraumatic, normocephalic - Respiratory Respiratory exam: Present: CTAB. Absent: accessory muscle use, rales, rhonchi, wheezes - Cardiovascular Cardiovascular exam: Present: RRR, +S1, +S2. Absent: diastolic murmur, gallop, rubs, systolic murmur - GI/Abdominal GI/Abdominal exam: Present: normal bowel sounds, soft, no peritoneal signs. Absent: distended, tenderness - Extremities Exam Additional comments: LLE: AKA RLE: mild erythema of the distal extremity,1+edema - Neurological Exam Neurological exam: Present: alert, oriented X3, no focal deficits Internal Medicine: Result - Labs CBC & Chem 7: 04/24/18 05:04 04/24/18 05:04 Labs: Short CBC 04/24/18 Range/Units 05:04 WBC 7.4 (4.3-11.1) K/mcL Hgb 9.5 L (12.9-16.9) g/dL Hct 30.1 L (37.5-50.1) % Plt Count 97 L (140-400) K/mcL Neutrophils # 4.6 (1.6-8.9) K/mcL BMP 04/24/18 05:04 Sodium 139 Potassium 4.3 Chloride 103 Carbon Dioxide 29 BUN 24 H Creatinine 1.31 H Glucose 111 H Calcium 8.9 Consult Discharge Plan - Plan Referrals: Chandan Fitzgerald MD [Primary Care Provider] - <Anel Davila - Last Filed: 04/24/18 14:16> Date of Encounter: 04/24/18 - Assessment and plan (1) CAD (coronary artery disease) Current Visit: Yes Status: Chronic Qualifiers: Coronary Disease-Associated Artery/Lesion type: [place] artery [place] vs. transplanted heart: [place] heart Associated angina: without angina Qualified Code(s): I25.10 - Atherosclerotic heart disease of [place] coronary artery without angina pectoris (2) DVT prophylaxis Current Visit: Yes Status: Acute (3) Hypothyroidism Current Visit: Yes Status: Chronic Qualifiers: Hypothyroidism type: postoperative Qualified Code(s): E89.0 - Postprocedural hypothyroidism (4) Anemia Current Visit: Yes Status: Chronic Qualifiers: Anemia type: iron deficiency Iron deficiency anemia type: other iron deficiency Qualified Code(s): D50.8 - Other iron deficiency anemias (5) THOMAS (acute kidney injury) Current Visit: Yes Status: Acute (6) Anxiety and depression Current Visit: Yes Status: Chronic (7) Cellulitis of right lower extremity without foot Current Visit: Yes Status: Acute (8) Diabetes Current Visit: Yes Status: Chronic Qualifiers: Diabetes mellitus type: type 2 Diabetes mellitus senior living insulin use: unspecified watermelon inspector insulin use status Diabetes mellitus complication status : with unspecified complications Qualified Code(s): E11.8 - Type 2 diabetes mellitus with unspecified complications (9) HTN (hypertension) Current Visit: Yes Status: Chronic Qualifiers: Hypertension type: essential hypertension Qualified Code(s): I10 - Essential (primary) hypertension (10) HLD (hyperlipidemia) Current Visit: Yes Status: Chronic Qualifiers: Hyperlipidemia type: pure hypercholesterolemia Qualified Code(s): E78.00 - Pure hypercholesterolemia, unspecified; E78.0 - Pure hypercholesterolemia (11) GERD (gastroesophageal reflux disease) Current Visit: Yes Status: Chronic Qualifiers: Esophagitis presence: esophagitis presence not specified Qualified Code(s) : K21.9 - Gastro-esophageal reflux disease without esophagitis (12) Dementia Current Visit: Yes Status: Chronic Qualifiers: Dementia type: unspecified type Dementia behavioral disturbance: without behavioral disturbance Qualified Code(s): F03.90 - Unspecified dementia without behavioral disturbance (13) Overactive bladder Current Visit: Yes Status: Chronic (14) Muscle spasm Current Visit: Yes Status: Chronic - Time Spent With Patient Total time spent is greater than 50% in coordination of care (as documented) at patient's floor/unit and/or counseling patient: - Constitutional Vitals: Temp Pulse Resp BP Pulse Ox 98.3 F 64 16 125/73 98 04/24/18 11:00 04/24/18 11:00 04/24/18 11:00 04/24/18 11:00 04/24/18 11:00 Internal Medicine: Result - Labs CBC & Chem 7: 04/24/18 05:04 04/24/18 05:04 Labs: Short CBC 04/24/18 Range/Units 05:04 WBC 7.4 (4.3-11.1) K/mcL Hgb 9.5 L (12.9-16.9) g/dL Hct 30.1 L (37.5-50.1) % Plt Count 97 L (140-400) K/mcL Neutrophils # 4.6 (1.6-8.9) K/mcL BMP 04/24/18 05:04 Sodium 139 Potassium 4.3 Chloride 103 Carbon Dioxide 29 BUN 24 H Creatinine 1.31 H Glucose 111 H Calcium 8.9 - Attending Attestation I examined this patient and my medical decision-making was reviewed with the Resident Physician Dr. Koch. I agree with the documented findings, disposition and treatment plan as described except to the extent set forth below. Mr. Borges is a 72 year old male w PMH of diabetes controlled with insulin, CKD-2, HTN, hx of previous CVA 1.5 years ago, hx of thyroid cancer w/ thyroidectomy, presented to ED with pain and swelling in the RLE for the past month which has been worsening. He was recently discharged from the hospital with PO Doxycycline. Pt got admitted and started him on Zosyn and Vancomycin. Pt stated his leg swelling and erythema improving now. Denied any CP / SOB Gen: A, A, O x3 Chest: Diminished BS Ext: improving erythema and swelling in Rt leg a/p 1. Acute Rt LE cellulites 2. Chronic venous stasis changes Cont abx Ancef Cont him on topical Clotrimazole and steroid cream Local wound care / RAJENDRA wraps ordered
[2018-04-24] MEDS: ceFAZolin 1,000 MG in 0.9 % Sodium Chloride Mini Bag 100 ML IVPB SCH ×2 (10:01→15:38)
[2018-04-24] MEDS: Baclofen 10 MG TABLET PO SCH ×3 (10:02→20:19)
[2018-04-24] MEDS: Lisinopril 20 MG TABLET PO SCH (10:02)
[2018-04-24] MEDS: Famotidine 20 MG TABLET PO SCH (10:02)
[2018-04-24] MEDS: Aspirin 81 MG TAB.CHEW PO SCH (10:02)
[2018-04-24] MEDS: Loratadine 10 MG TABLET PO SCH (10:02)
[2018-04-24] MEDS: Gabapentin 100 MG CAPSULE PO SCH ×2 (10:02→20:19)
[2018-04-24] MEDS: amLODIPine 5 MG TABLET PO SCH (10:03)
[2018-04-24] MEDS: Clotrimazole/Betameth Dip CRM 45 APPL/45 GM TUBE TP SCH ×2 (10:07→20:21)
[2018-04-24] MEDS: *HR* Heparin 5,000 UNIT/ML VIAL SQ SCH ×2 (10:16→15:38)
[2018-04-25] MEDS: ceFAZolin 1,000 MG in 0.9 % Sodium Chloride Mini Bag 100 ML IVPB SCH ×2 (00:41→10:07)
[2018-04-25] MEDS: *HR* Heparin 5,000 UNIT/ML VIAL SQ SCH ×2 (00:41→10:09)
[2018-04-25 06:20] LABS: Basophils % 0.8 %; Red Blood Count 3.07 M/mcL (4.19-5.50)
[2018-04-25 06:22] LABS: Eosinophils # 0.4 K/mcL (0.0-0.6); Eosinophils % 8.1 %; Hematocrit 30.3 % (37.5-50.1); Hemoglobin 9.5 g/dL (12.9-16.9); Immature Granulocytes % 1.3 % (0-4); Immature Platelets 8.4 % (1.1-6.1); Lymphocytes # 1.2 K/mcL (0.6-4.6); Lymphocytes % 21.7 %; Mean Corpuscular HGB Conc 31.4 g/dL (31.6-35.5); Mean Corpuscular Hemoglobin 30.9 pg (28.0-33.3); Mean Corpuscular Volume 98.7 fL (83.0-100.0); Mean Platelet Volume 12.2 fL (9.4-12.4); Monocytes # 0.5 K/mcL (0.0-1.3); Neutrophils # 3.1 K/mcL (1.6-8.9); Red Cell Distribution Width 15.1 % (11.5-14.5); Segmented Neutrophils % 58.1 %
[2018-04-25 06:25] LABS: Platelet Count 81 K/mcL (140-400)
[2018-04-25 06:41] LABS: BUN/Creatinine Ratio 17 (6-26); Blood Urea Nitrogen 20 mg/dL (8-23); Calcium 9.1 mg/dL (8.6-10.3); Carbon Dioxide 29 mEq/L (23-29); Chloride 104 mEq/L (98-107); Glucose 186 mg/dL (70-105); Osmolality,Calculated 297 (280-300); Potassium 4.3 mEq/L (3.5-5.1); Sodium 140 mEq/L (136-145); eGFR For African Americans > 60 (> 60); eGFR For Non-African Americans > 60 (> 60)
[2018-04-25 06:47] VITALS: BP 135/73
--- NOTE | 2018-04-25 07:44 | Physician Discharge Referral ---
ExtendedCare Referral Info Transfer To: SNF Provider in Charge after Transfer: PCP Institutional Level of Care: Skilled - Diagnosis (1) Cellulitis of right lower extremity without foot Priority: Primary Status: Acute (2) THOMAS (acute kidney injury) Priority: Secondary Status: Acute (3) DM (diabetes mellitus), type 2 Priority: Secondary Status: Chronic (4) Anemia Priority: Secondary Status: Chronic (5) Hypertension Priority: Secondary Status: Chronic (6) Hypothyroidism Priority: Secondary Status: Chronic (7) CAD (coronary artery disease) Priority: Secondary Status: Chronic (8) Anxiety and depression Priority: Secondary Status: Chronic (9) HLD (hyperlipidemia) Priority: Secondary Status: Chronic (10) GERD (gastroesophageal reflux disease) Priority: Secondary Status: Chronic (11) Overactive bladder Priority: Secondary Status: Chronic (12) Dementia Priority: Secondary Status: Chronic (13) Muscle spasm Priority: Secondary Status: Chronic Prognosis: Fair Aware of Diagnosis: Patient Aware of Prognosis: Patient - Transfer Medications Prescriptions: Clotrimazole/Betameth Dip CRM [Lotrisone CRM] 1 appl TP BID #1 tube Home Medications: DULoxetine [Cymbalta] 60 mg PO DAILY 08/05/15 [History] Docusate [Colace] 200 mg PO BID PRN 08/05/15 [History] Donepezil [Aricept] 10 mg PO HS 08/05/15 [History] Lactulose 10 gm PO DAILY PRN 08/05/15 [History] Aspirin 81 mg PO DAILY 03/18/16 [History] Metoprolol Tartrate [Lopressor] 50 mg PO BID 03/18/16 [History] Furosemide [Lasix] 40 mg PO DAILY 07/30/16 [History] Mirabegron [Myrbetriq] 50 mg PO DAILY 07/30/16 [History] Fluticasone Propionate Nasal [Flonase] 50 mcg NS DAILY PRN 10/23/16 [History] Loratadine [Allergy Relief] 10 mg PO DAILY 10/23/16 [History] Amlodipine Besylate 10 mg PO DAILY 12/04/16 [History] Famotidine [Pepcid] 20 mg PO BID 04/08/17 [History] Ferrous Sulfate 325 mg PO BIDWM #30 tablet 04/19/17 [Rx] Atorvastatin [Lipitor] 40 mg PO HS 06/21/17 [History] Clopidogrel [Plavix] 75 mg PO DAILY 06/21/17 [History] Gabapentin [Neurontin] 100 mg PO BID 06/21/17 [History] Levothyroxine [Synthroid] 175 mcg PO QAM 06/21/17 [History] Lidocaine Patch [Lidoderm 5% patch] 1 each TP DAILY 06/21/17 [History] Baclofen [Lioresal] 10 mg PO TID 08/30/17 [History] Insulin NPH Human Isophane [Novolin N] 65 unit SQ BIDWM 08/30/17 [History] Insulin Regular, Human [Novolin R] 20 unit SQ TID 08/30/17 [History] Lisinopril [Zestril] 20 mg PO DAILY 03/15/18 [History] Tizanidine HCl 4 mg PO BID PRN 03/15/18 [History] Donepezil [Aricept] 10 mg PO HS tablet 04/16/18 [Rx] Doxycycline 100 mg PO BID 10 Days #20 capsule 04/16/18 [Rx] HYDROcodone/Acet 10/325 mg [[place] 10-325 mg] 1 each PO Q6H PRN 2 Days #20 tablet 04/16/18 [Rx] Clotrimazole/Betameth Dip CRM [Lotrisone CRM] 1 appl TP BID #1 tube 04/25/18 [Rx ] Allergies/Adverse Reactions: 3 Allergy/AdvReac Type Severity Reaction Status Date / Time adhesive tape Allergy Hives Verified 12/26/17 17:43 pregabalin [From Lyrica] Allergy Swelling Verified 12/26/17 17:43 of Lip/Tongue/Throat Sulfa (Sulfonamide Allergy PER PT Verified 12/26/17 17:43 Antibiotics) UNKNOWN REACTION - Respiratory Orders Smoking Cessation: Smoking cessation has been advised. For more information, call the [place] Tobacco Quit Line at 8-294-XQYH-NOW. - Ancillary Orders May use pressure relief devices daily prn, May go on JOAN w/family/respon alliance party w /meds at nurse discretion PRN, May consult with Dentist, Clay Temperer, Taper/Finisher PRN - Advance Directives Code Status: Full Code - Mobility Orders Ambulate - Rehabiliation Orders Rehab Potential: Fair Rehab Orders: ROM Exercises, Evaluation for Physical Therapy, Evaluation for Occupational Therapy - Treatments Skin tear care topically daily PRN per policy, May check for fecal impaction rectally daily PRN, Fleet enema rectally every other day PRN cleansing purposes - Diet Orders Regular CERTIFICATION: I certify that the transfer of the above named patient to an Extended Care Facility is necessary for the continuing treatment of the diagnosis listed. The above information is true and accurate reflection of patient's current condition. Confidential - Redisclosure prohibited without a patient's written consent.
--- NOTE | 2018-04-25 07:53 | Discharge Summary ---
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 Diabetes mellitus complication status: with kidney complications Diabetes mellitus complication detail: with chronic kidney disease Chronic kidney disease stage : stage 3 (moderate) Qualified Code(s): E11.22 - Type 2 diabetes mellitus with diabetic chronic kidney disease; N18.3 - Chronic kidney disease, stage 3 ( moderate); N18.3 - Chronic kidney disease, stage 3 (moderate); Z79.4 - MCC (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 of insulin; Z79.4 - MCC (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 of insulin; Z79.4 - terminal make up operator (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 of insulin; Z79.4 - terminal make up operator (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 of insulin (4) Anemia Priority: Secondary Status: Chronic Qualifiers: Anemia type: iron deficiency Qualified Code(s): D50.0 - Iron deficiency anemia secondary to blood loss (chronic) (5) Hypertension Priority: Secondary Status: Chronic Qualifiers: Hypertension type: essential hypertension Qualified Code(s): I10 - Essential (primary) hypertension (6) Hypothyroidism Priority: Secondary Status: Chronic Qualifiers: Hypothyroidism type: unspecified Qualified Code(s): E03.9 - Hypothyroidism , unspecified (7) CAD (coronary artery disease) Priority: Secondary Status: Chronic Qualifiers: Coronary Disease-Associated Artery/Lesion type: [place] artery [place] vs. transplanted heart: unspecified whether [place] or transplanted heart Associated angina: angina presence unspecified Qualified Code(s): I25.10 - Atherosclerotic heart disease of [place] coronary artery without angina pectoris (8) Anxiety and depression Priority: Secondary Status: Chronic (9) HLD (hyperlipidemia) Priority: Secondary Status: Chronic Qualifiers: Hyperlipidemia type: pure hypercholesterolemia Qualified Code(s): E78.00 - Pure hypercholesterolemia, unspecified; E78.0 - Pure hypercholesterolemia (10) GERD (gastroesophageal reflux disease) Priority: Secondary Status: Chronic Qualifiers: Esophagitis presence: esophagitis presence not specified Qualified Code(s) : K21.9 - Gastro-esophageal reflux disease without esophagitis (11) Overactive bladder Priority: Secondary Status: Chronic (12) Dementia Priority: Secondary Status: Chronic Qualifiers: Dementia type: unspecified type Dementia behavioral disturbance: without behavioral disturbance Qualified Code(s): F03.90 - Unspecified dementia without behavioral disturbance (13) Muscle spasm Priority: Secondary Status: Chronic Hospital course: Mr. Borges is a 72 year old male with significant past medical history of diabetes mellitus, chronic kidney disease, hypertension and CVA presented and admitted for swelling of the right lower extremity for the past month. Patient states symptoms have been going on for 2 years. Was treated as an outpatient with doxycycline. Symptoms worsened since. Concern for cellulitis therefore patient was placed on Vanc and Zosyn upon arrival. Patient did not have leukocytosis. Did not meet sepsis criteria. Patient's creatinine elevated due to vancomycin therefore that was discontinued and patient was placed on Ancef. Patient was also given a clotrimazole-betamethasone cream for his skin. Upon further examination right lower extremity was mixed picture of cellulitis versus venous stasis. Michele wrap bandage was placed. He now states he still has minimal pain at this time but this is chronic for the patient. Patient has been afebrile with no leukocytosis throughout his stay. Creatinine back at baseline. - Time Spent with Patient Total time spent providing and/or coordinating discharge services: - Discharge Medications Prescriptions: Clotrimazole/Betameth Dip CRM [Lotrisone CRM] 1 appl TP BID #1 tube Home Medications: DULoxetine [Cymbalta] 60 mg PO DAILY 08/05/15 [History] Docusate [Colace] 200 mg PO BID PRN 08/05/15 [History] Donepezil [Aricept] 10 mg PO HS 08/05/15 [History] Lactulose 10 gm PO DAILY PRN 08/05/15 [History] Aspirin 81 mg PO DAILY 03/18/16 [History] Metoprolol Tartrate [Lopressor] 50 mg PO BID 03/18/16 [History] Furosemide [Lasix] 40 mg PO DAILY 07/30/16 [History] Mirabegron [Myrbetriq] 50 mg PO DAILY 07/30/16 [History] Fluticasone Propionate Nasal [Flonase] 50 mcg NS DAILY PRN 12/12/16 [History] Loratadine [Allergy Relief] 10 mg PO DAILY 10/23/16 [History] Amlodipine Besylate 10 mg PO DAILY 12/04/16 [History] Famotidine [Pepcid] 20 mg PO BID 04/08/17 [History] Ferrous Sulfate 325 mg PO BIDWM #30 tablet 04/19/17 [Rx] Atorvastatin [Lipitor] 40 mg PO HS 06/21/17 [History] Clopidogrel [Plavix] 75 mg PO DAILY 06/21/17 [History] Gabapentin [Neurontin] 100 mg PO BID 06/21/17 [History] Levothyroxine [Synthroid] 175 mcg PO QAM 06/21/17 [History] Lidocaine Patch [Lidoderm 5% patch] 1 each TP DAILY 06/21/17 [History] Baclofen [Lioresal] 10 mg PO TID 08/30/17 [History] Insulin NPH Human Isophane [Novolin N] 65 unit SQ BIDWM 08/30/17 [History] Insulin Regular, Human [Novolin R] 20 unit SQ TID 08/30/17 [History] Lisinopril [Zestril] 20 mg PO DAILY 03/15/18 [History] Tizanidine HCl 4 mg PO BID PRN 03/15/18 [History] Donepezil [Aricept] 10 mg PO HS tablet 04/16/18 [Rx] Doxycycline 100 mg PO BID 10 Days #20 capsule 04/16/18 [Rx] HYDROcodone/Acet 10/325 mg [[place] 10-325 mg] 1 each PO Q6H PRN 2 Days #20 tablet 04/16/18 [Rx] Clotrimazole/Betameth Dip CRM [Lotrisone CRM] 1 appl TP BID #1 tube 04/25/18 [Rx ] Allergies/Adverse Reactions: 3 Allergy/AdvReac Type Severity Reaction Status Date / Time adhesive tape Allergy Hives Verified 12/26/17 17:43 pregabalin [From Lyrica] Allergy Swelling Verified 12/26/17 17:43 of Lip/Tongue/Throat Sulfa (Sulfonamide Allergy PER PT Verified 12/26/17 17:43 Antibiotics) UNKNOWN REACTION Date of admission: 04/22/18 13:35 Primary care physician: Chandan Fitzgerald MD Consults: 04/22/18 14:39 Consult to Nutrition [CONS] Routine Comment: Consulting Provider: NUTRITION Reason for Dietary Consult: Diet Education Discharging clinician: Eugenia Koch Anticipated date of discharge: 04/25/18 - Constitutional Vitals: Temp Pulse Resp BP Pulse Ox 98.1 F 59 16 135/73 93 04/25/18 06:46 04/25/18 06:46 04/25/18 06:46 04/25/18 06:46 04/25/18 06:46 General appearance: Present: A&O X 3, no acute distress, obese, answers questions appropriately - Head Head exam: Present: atraumatic, normocephalic - Respiratory Respiratory exam: Present: CTAB. Absent: accessory muscle use, rales, rhonchi, wheezes - Cardiovascular Cardiovascular exam: Present: RRR, +S1, +S2. Absent: gallop, rubs - GI/Abdominal GI/Abdominal exam: Present: normal bowel sounds, soft, no peritoneal signs. Absent: distended, tenderness - Extremities Exam Additional comments: LLE: AKA RLE: mild erythema of the distal extremity,1+edema - Neurological Exam Neurological exam: Present: alert, no focal deficits - Patient Status Disposition: Transfer SNF Condition: Good Overall status at discharge: patient is back to baseline - Discharge Instructions Follow Up With: Chandan Fitzgerald MD [Primary Care Provider] - (ECF) Additional Instructions: Please continue your home medications. Please start using the cream for your dry skin as written. Please follow up with your primary care doctor within 1 week. Please return for any new or worsening symptoms. - Diet and Activity Activity: increase activity as tolerated Diet: advance to your usual diet <Anel Davila - Last Filed: 04/25/18 13:07> Date of Encounter: 04/25/18 - Discharge Diagnosis (1) CAD (coronary artery disease) Status: Chronic Qualifiers: Coronary Disease-Associated Artery/Lesion type: [place] artery [place] vs. transplanted heart: [place] heart Associated angina: without angina Qualified Code(s): I25.10 - Atherosclerotic heart disease of [place] coronary artery without angina pectoris (2) DVT prophylaxis Status: Acute (3) Hypothyroidism Status: Chronic Qualifiers: Hypothyroidism type: postoperative Qualified Code(s): E89.0 - Postprocedural hypothyroidism (4) Anemia Status: Chronic Qualifiers: Anemia type: iron deficiency Iron deficiency anemia type: other iron deficiency Qualified Code(s): D50.8 - Other iron deficiency anemias (5) THOMAS (acute kidney injury) Status: Acute (6) Anxiety and depression Status: Chronic (7) Cellulitis of right lower extremity without foot Status: Acute (8) Diabetes Status: Chronic Qualifiers: Diabetes mellitus type: type 2 Diabetes mellitus fpc insulin use: unspecified fpc insulin use status Diabetes mellitus complication status : with unspecified complications Qualified Code(s): E11.8 - Type 2 diabetes mellitus with unspecified complications (9) HTN (hypertension) Status: Chronic Qualifiers: Hypertension type: essential hypertension Qualified Code(s): I10 - Essential (primary) hypertension (10) HLD (hyperlipidemia) Status: Chronic Qualifiers: Hyperlipidemia type: pure hypercholesterolemia Qualified Code(s): E78.00 - Pure hypercholesterolemia, unspecified; E78.0 - Pure hypercholesterolemia (11) GERD (gastroesophageal reflux disease) Status: Chronic Qualifiers: Esophagitis presence: esophagitis presence not specified Qualified Code(s) : K21.9 - Gastro-esophageal reflux disease without esophagitis (12) Dementia Status: Chronic Qualifiers: Dementia type: unspecified type Dementia behavioral disturbance: without behavioral disturbance Qualified Code(s): F03.90 - Unspecified dementia without behavioral disturbance (13) Overactive bladder Status: Chronic (14) Muscle spasm Status: Chronic Hospital course: Mr. Borges is a 72 year old male - Time Spent with Patient Total time spent providing and/or coordinating discharge services: Date of admission: 04/22/18 13:35 Primary care physician: Chandan Fitzgerald MD Consults: 04/22/18 14:39 Consult to Nutrition [CONS] Routine Comment: Consulting Provider: NUTRITION Reason for Dietary Consult: Diet Education - Constitutional Vitals: Temp Pulse Resp BP Pulse Ox 98.1 F 59 16 135/73 93 04/25/18 06:46 04/25/18 06:46 04/25/18 06:46 04/25/18 06:46 04/25/18 06:46 - Attending Attestation I examined this patient and my medical decision-making was reviewed with the Resident Physician Dr. Koch. I agree with the documented findings, disposition and treatment plan as described except to the extent set forth below. Mr. Borges is a 72 year old male w PMH of diabetes controlled with insulin, CKD-2, HTN, hx of previous CVA 1.5 years ago, hx of thyroid cancer w/ thyroidectomy, presented to ED with pain and swelling in the RLE for the past month which has been worsening. He was recently discharged from the hospital with PO Doxycycline. Pt got admitted and started him on Zosyn and Vancomycin later switched to Ancef. Pt stated his leg swelling and erythema improving now. Denied any CP / SOB Gen: A, A, O x3 Chest: Diminished BS Ext: improving erythema and swelling in Rt leg a/p 1. Acute Rt LE cellulites 2. Chronic venous stasis changes Cont abx Ancef Cont topical Clotrimazole and steroid cream Local wound care / MICHELE wraps ordered His leg erythema seems to be mostly due to Venous stasis. So recommend to continue local wound care and instructed the pt how to use MICHELE wraps.
[2018-04-25] MEDS: Insulin LISPRO 300 UNITS/3 ML VIAL SQ SCH ×2 (10:06→10:07)
[2018-04-25] MEDS: Aspirin 81 MG TAB.CHEW PO SCH (10:08)
[2018-04-25] MEDS: amLODIPine 5 MG TABLET PO SCH (10:08)
[2018-04-25] MEDS: Gabapentin 100 MG CAPSULE PO SCH (10:08)
[2018-04-25] MEDS: Loratadine 10 MG TABLET PO SCH (10:08)
[2018-04-25] MEDS: Famotidine 20 MG TABLET PO SCH (10:08)
[2018-04-25] MEDS: Baclofen 10 MG TABLET PO SCH (10:08)
[2018-04-25] MEDS: Clotrimazole/Betameth Dip CRM 45 APPL/45 GM TUBE TP SCH (10:09)
[2018-04-25] MEDS: Lisinopril 20 MG TABLET PO SCH (10:09)
== END 2018-04-25 12:07 | DRG 603 ==
LOC: EMEROO 09:25 → 3ANU 09:25
PROVIDERS: ADMIT Nurse Practitioner Family; ATTEND Internal Medicine Cardiovascular Disease

== ENCOUNTER 2018-05-15 13:09 | Inpatient (IN) ==
[2018-05-15] MEDS ORDERED: Ipratropium/Albuterol Neb 3 ML IH ONE (13:14)
[2018-05-15] MEDS ORDERED: 0.9 % Sodium Chloride 1,000 ML IVC ONE (13:19)
--- NOTE | 2018-05-15 13:19 | Emergency Department Note ---
Disposition Clinical Impression: Pneumonia, Severe sepsis, Acute on chronic renal failure Disposition: Admitted As Inpatient Condition: Fair General Adult HPI - General Chief complaint: ED Shortness of Breath/Dyspnea Stated complaint: ALIREZA Time Seen by Provider: 05/15/18 13:10 Nursing Notes Reviewed: Yes Vital Signs Reviewed: Yes - Related Data Home Medications Medication Instructions Recorded Confirmed DULoxetine [Cymbalta] 60 mg PO DAILY 08/05/15 05/15/18 Docusate [Colace] 200 mg PO BID PRN 08/05/15 05/15/18 Lactulose 10 gm PO DAILY PRN 08/05/15 05/15/18 Aspirin 81 mg PO DAILY 03/18/16 05/15/18 Metoprolol Tartrate [Lopressor] 50 mg PO BID 03/18/16 05/15/18 Furosemide [Lasix] 40 mg PO DAILY 07/30/16 05/15/18 Fluticasone Propionate Nasal 50 mcg NS DAILY PRN 10/23/16 05/15/18 [Flonase] Loratadine [Allergy Relief] 10 mg PO DAILY 10/23/16 05/15/18 Amlodipine Besylate 10 mg PO DAILY 12/04/16 05/15/18 Famotidine [Pepcid] 20 mg PO BID 04/08/17 05/15/18 Atorvastatin [Lipitor] 40 mg PO HS 06/21/17 05/15/18 Clopidogrel [Plavix] 75 mg PO DAILY 06/21/17 05/15/18 Gabapentin [Neurontin] 100 mg PO BID 06/21/17 05/15/18 Lidocaine Patch [Lidoderm 5% patch] 1 each TP DAILY 06/21/17 05/15/18 Baclofen [Lioresal] 10 mg PO TID 08/30/17 05/15/18 Insulin NPH Human Isophane 65 unit SQ BIDWM 08/30/17 05/15/18 [Novolin N] Insulin Regular, Human [Novolin R] 0 - 10 unit SQ TID 08/30/17 05/15/18 Lisinopril [Zestril] 20 mg PO DAILY 03/15/18 05/15/18 Tizanidine HCl 4 mg PO BID PRN 03/15/18 05/15/18 Guaifenesin [Mucinex] 600 mg PO BID 05/15/18 05/15/18 Ipratropium/Albuterol Neb [Duoneb] 3 ml IH Q6HR 05/15/18 05/15/18 Levothyroxine Sodium [Levo-T] 200 mcg PO QAM 05/15/18 05/15/18 Oxybutynin Chloride [Ditropan Xl] 10 mg PO DAILY 05/15/18 05/15/18 Previous Rx's Medication Instructions Recorded Ferrous Sulfate 325 mg PO BIDWM #30 tablet 04/19/17 Donepezil [Aricept] 10 mg PO HS tablet 04/16/18 HYDROcodone/Acet 10/325 mg [[place] 1 each PO Q6H PRN 2 Days #20 tablet 04/16/18 10-325 mg] Clotrimazole/Betameth Dip CRM 1 appl TP BID #1 tube 04/25/18 [Lotrisone CRM] Allergies Allergy/AdvReac Type Severity Reaction Status Date / Time adhesive tape Allergy Hives Verified 12/26/17 17:43 pregabalin [From Lyrica] Allergy Swelling Verified 12/26/17 17:43 of Lip/Tongue/Throat Sulfa (Sulfonamide Allergy PER PT Verified 12/26/17 17:43 Antibiotics) UNKNOWN REACTION Past Medical History - Past Medical History Medical history: Reports: cancer (Thyroid w/thyroidectomy), CVA (1.5 years ago w /o residual weakness), diabetes, hypertension, renal disease, thyroid disease ( Thyroidectomy d/t cancer), syncope Surgical history: Reports: orthopedic, other, thyroidectomy, other, appendectomy Psychiatric history: Reports: anxiety, depression - Social History Smoking Status: Never smoker Smokeless Tobacco Status: No Alcohol use: Reports: none Drug use: Reports: none Course Vital Signs Temperature 99.5 F 05/15/18 13:12 Pulse Rate 82 05/15/18 13:12 Respiratory Rate 22 05/15/18 13:12 Blood Pressure 80/40 05/15/18 13:12 O2 Sat by Pulse Oximetry 91 05/15/18 13:12 Temperature 99.5 F 05/15/18 13:12 Pulse Rate 84 05/15/18 14:52 Respiratory Rate 20 05/15/18 14:52 Blood Pressure 99/52 05/15/18 14:52 O2 Sat by Pulse Oximetry 94 05/15/18 14:52 Oxygen Delivery Oxygen Delivery Nasal Cannula Medical Decision Making - [facility] Narrative Medical decision making narrative: Chest X-Ray 05/15/18 13:14 IMPRESSION: 1. Patchy opacity at the right lung base could be due to atelectasis or pneumonia. 2. Linear atelectasis at the left lung base. D/ / Tushar Gupta MD / Tushar Gupta MD Interpreting Provider: Tushar Gupta MD Patient looks like probably has a pneumonia and also with the low blood pressure could be septic. Lactic acid normal. Anabolic started. AKA is also diagnosis. Hospitalist seen patient bedside. - Lab Data Result diagrams: 05/15/18 13:14 05/15/18 13:14 Lab Results 05/15/18 05/15/18 05/15/18 Range/Units 13:14 13:14 13:27 WBC 19.8 H (4.3-11.1) K/mcL RBC 3.56 L (4.19-5.50) M/mcL Hgb 11.2 L (12.9-16.9) g/dL Hct 33.8 L (37.5-50.1) % MCV 94.9 (83.0-100.0) fL MCH 31.5 (28.0-33.3) pg MCHC 33.1 (31.6-35.5) g/dL RDW 14.7 H (11.5-14.5) % Plt Count 122 L (140-400) K/mcL MPV 12.6 H (9.4-12.4) fL Seg Neutrophils % 62.0 % Band Neutrophils % 16.0 H (0-4) % Lymphocytes % 16.0 % Monocytes % 6.0 % Neutrophils # 15.4 H (1.6-8.9) K/mcL Lymphocytes # 3.2 (0.6-4.6) K/mcL Monocytes # 1.2 (0.0-1.3) K/mcL Reactive Lymphocytes Present A (Not Present) Platelet Estimate Decreased L (Normal) Large Platelets Present A (Not Present) VBG pH (7.32-7.42) pH Units VBG pCO2 (41-51) mmHg VBG pO2 (25-50) mmHg VBG HCO3 (21-27) mEq/L Sodium 134 L (136-145) mEq/L Potassium 4.8 (3.5-5.1) mEq/L Chloride 99 (98-107) mEq/L Carbon Dioxide 22 L (23-29) mEq/L BUN 52 H (8-23) mg/dL Creatinine 2.12 H (0.70-1.30) mg/dL Est GFR ( Amer) 38 L (> 60) Est GFR (Non-Af Amer) 31 L (> 60) BUN/Creatinine Ratio 25 (6-26) Glucose 225 H (70-105) mg/dL Calculated Osmolality 299 (280-300) Lactic Acid 2.0 (0.5-2.2) mmol/L Calcium 8.9 (8.6-10.3) mg/dL Troponin I 0.03 (< 0.04) ng/mL 05/15/18 Range/Units 13:42 WBC (4.3-11.1) K/mcL RBC (4.19-5.50) M/mcL Hgb (12.9-16.9) g/dL Hct (37.5-50.1) % MCV (83.0-100.0) fL MCH (28.0-33.3) pg MCHC (31.6-35.5) g/dL RDW (11.5-14.5) % Plt Count (140-400) K/mcL MPV (9.4-12.4) fL Seg Neutrophils % % Band Neutrophils % (0-4) % Lymphocytes % % Monocytes % % Neutrophils # (1.6-8.9) K/mcL Lymphocytes # (0.6-4.6) K/mcL Monocytes # (0.0-1.3) K/mcL Reactive Lymphocytes (Not Present) Platelet Estimate (Normal) Large Platelets (Not Present) VBG pH 7.40 (7.32-7.42) pH Units VBG pCO2 40 L (41-51) mmHg VBG pO2 52 H (25-50) mmHg VBG HCO3 25 (21-27) mEq/L Sodium (136-145) mEq/L Potassium (3.5-5.1) mEq/L Chloride (98-107) mEq/L Carbon Dioxide (23-29) mEq/L BUN (8-23) mg/dL Creatinine (0.70-1.30) mg/dL Est GFR ( Amer) (> 60) Est GFR (Non-Af Amer) (> 60) BUN/Creatinine Ratio (6-26) Glucose (70-105) mg/dL Calculated Osmolality (280-300) Lactic Acid (0.5-2.2) mmol/L Calcium (8.6-10.3) mg/dL Troponin I (< 0.04) ng/mL Critical Care Time Critical Care Time: Yes Total Critical Care Time: 45 Attestation: Excluding any separately billable procedures. Attestation Statement - Attestation Attestation: This documentation is done with the assistance of Dragon dictation. Despite efforts made to ensure accuracy, there may be inaccuracies in [employer] or spelling and typographical errors. I examined this patient and my medical decision-making was reviewed with the Resident Physician. I agree with the documented findings, disposition and treatment plan as described except to the extent set forth below. Patient seen and evaluated on arrival with EMS from nursing facility. Increased dyspnea and cough. No fevers. No history of COPD. And no complaints of chest pain. He was seen on arrival by Dr. Koch and myself, grazes evaluation and management plan, supervise care the patient's stay. Check labs, start on him getting his fluids and then reassess. He may need admission.
--- NOTE | 2018-05-15 13:22 | Emergency Department Note ---
Disposition Clinical Impression: Severe sepsis, Hypoxia Pneumonia Qualifiers: Pneumonia type: due to unspecified organism Laterality: right Lung location: lower lobe of lung Qualified Code(s): J18.1 - Lobar pneumonia, unspecified organism Acute on chronic renal failure Qualifiers: Acute renal failure type: unspecified Chronic kidney disease stage: unspecified stage Qualified Code(s): N17.9 - Acute kidney failure, unspecified Disposition: Admitted As Inpatient Condition: Fair Time of Disposition: 14:34 SOB HPI - General Chief Complaint: ED Shortness of Breath/Dyspnea Stated Complaint: ALIREZA Time Seen by Provider: 05/15/18 13:10 Source: patient, EMS Mode of arrival: EMS Limitations: no limitations Nursing Notes Reviewed: Yes Vital Signs Reviewed: Yes - History of Present Illness Patient presents to the ED via EMS from the nursing facility with the chief complaint of shortness of breath. Patient does not have a history of COPD and EMS states his sats were in the mid to high 80s, so they placed him on oxygen. Patient states he has been feeling short of breath for about the last week. Has had a wet but nonproductive cough. He states he just feels like he cannot get anything up. Denies any fever, chills, chest pain, abdominal pain or vomiting or diarrhea. Is not normally on oxygen. He does have a pain stimulator that he states is not helping. - Related Data Home Medications Medication Instructions Recorded Confirmed DULoxetine [Cymbalta] 60 mg PO DAILY 08/05/15 05/15/18 Docusate [Colace] 200 mg PO BID PRN 08/05/15 05/15/18 Lactulose 10 gm PO DAILY PRN 08/05/15 05/15/18 Aspirin 81 mg PO DAILY 03/18/16 05/15/18 Metoprolol Tartrate [Lopressor] 50 mg PO BID 03/18/16 05/15/18 Furosemide [Lasix] 40 mg PO DAILY 07/30/16 05/15/18 Fluticasone Propionate Nasal 50 mcg NS DAILY PRN 10/23/16 05/15/18 [Flonase] Loratadine [Allergy Relief] 10 mg PO DAILY 10/23/16 05/15/18 Amlodipine Besylate 10 mg PO DAILY 12/04/16 05/15/18 Famotidine [Pepcid] 20 mg PO BID 04/08/17 05/15/18 Atorvastatin [Lipitor] 40 mg PO HS 06/21/17 05/15/18 Clopidogrel [Plavix] 75 mg PO DAILY 06/21/17 05/15/18 Gabapentin [Neurontin] 100 mg PO BID 06/21/17 05/15/18 Lidocaine Patch [Lidoderm 5% patch] 1 each TP DAILY 06/21/17 05/15/18 Baclofen [Lioresal] 10 mg PO TID 08/30/17 05/15/18 Insulin NPH Human Isophane 65 unit SQ BIDWM 08/30/17 05/15/18 [Novolin N] Insulin Regular, Human [Novolin R] 0 - 10 unit SQ TID 08/30/17 05/15/18 Lisinopril [Zestril] 20 mg PO DAILY 03/15/18 05/15/18 Tizanidine HCl 4 mg PO BID PRN 03/15/18 05/15/18 Guaifenesin [Mucinex] 600 mg PO BID 05/15/18 05/15/18 Ipratropium/Albuterol Neb [Duoneb] 3 ml IH Q6HR 05/15/18 05/15/18 Levothyroxine Sodium [Levo-T] 200 mcg PO QAM 05/15/18 05/15/18 Oxybutynin Chloride [Ditropan Xl] 10 mg PO DAILY 05/15/18 05/15/18 Previous Rx's Medication Instructions Recorded Ferrous Sulfate 325 mg PO BIDWM #30 tablet 04/19/17 Donepezil [Aricept] 10 mg PO HS tablet 04/16/18 HYDROcodone/Acet 10/325 mg [[place] 1 each PO Q6H PRN 2 Days #20 tablet 04/16/18 10-325 mg] Clotrimazole/Betameth Dip CRM 1 appl TP BID #1 tube 04/25/18 [Lotrisone CRM] Allergies Allergy/AdvReac Type Severity Reaction Status Date / Time adhesive tape Allergy Hives Verified 12/26/17 17:43 pregabalin [From Lyrica] Allergy Swelling Verified 12/26/17 17:43 of Lip/Tongue/Throat Sulfa (Sulfonamide Allergy PER PT Verified 12/26/17 17:43 Antibiotics) UNKNOWN REACTION Review of Systems: As reviewed in the HPI. All other systems reviewed are negative or normal. Past Medical History - Past Medical History Attestation: Yes The following information was validated with the patient. 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), diabetes, hypertension, renal disease, thyroid disease ( Thyroidectomy d/t cancer), syncope Surgical history: Reports: orthopedic, other, thyroidectomy, other, appendectomy Psychiatric history: Reports: anxiety, depression - Social History Smoking Status: Never smoker Smokeless Tobacco Status: No Alcohol use: Reports: none Drug use: Reports: none Physical Exam - General Limitations: no limitations General appearance: alert, in no apparent distress - Head Head exam: atraumatic, normocephalic, normal inspection - Eye Eye exam: Present: normal appearance, PERRL, EOMI - ENT ENT exam: normal exam, normal oropharynx, mucous membranes moist - Neck Neck exam: Present: normal inspection, full ROM, trachea midline - Chest Chest inspection: Present: normal inspection, symmetric chest wall rise - Respiratory Respiratory exam: Present: respiratory distress (mild ), wheezes, prolonged expiratory phase. Absent: normal lung sounds bilaterally, accessory muscle use - Expanded Respiratory Exam Location: wheezes: Upper, Lower, Left, Right, rhonchi: Lower, Right - Cardiovascular Cardiovascular exam: Present: regular rate, normal rhythm, normal heart sounds - Abdominal Exam Abdominal exam: Present: soft, Non-Tender, other (R abdominal wall pain stimulator ). Absent: tenderness, distention, guarding, rebound, rigidity - Extremities Exam Extremities exam: Present: normal inspection, full ROM, normal capillary refill , pedal edema, other (L BKA, Chronic appearing R cellulitis, patient states is improving from previous hospital stay). Absent: tenderness - Expanded Lower Extremity Exam Hip/Pelvis exam: Present: pelvis stable - Neurological Exam Neurological exam: Present: alert, oriented X3 - Psychiatric Psychiatric exam: Present: normal affect, normal mood - Skin Skin exam: Present: warm, dry, intact, normal color Course Course Narrative: Patient presenting with a cough and shortness of breath. Likely has pneumonia. We will get workup and probably admit - Reevaluation(s) Reevaluation #1: Patient has pneumonia, leukocytosis and hypoxia. We will dose with Zosyn and Levaquin and admit to the hospitalist service. Lactic acid was normal. Blood cultures and sputum culture ordered. Also sent off for strep and Legionella due to his hyponatremia. Does have acute on chronic renal insufficiency, so we will get a MRSA swab and avoid any vancomycin at this time. Patient was hypotensive originally with SBP 80 but responded to 1L IVF bolus and has not required any further IVF. Did not want to give any further IVF at this time since he responded so well to initial 1L. Will repeat if necessary. Do not want to fluid overload as he is already in resp distress. Vital Signs Temperature 99.5 F 05/15/18 13:12 Pulse Rate 82 05/15/18 13:12 Respiratory Rate 22 05/15/18 13:12 Blood Pressure 80/40 05/15/18 13:12 O2 Sat by Pulse Oximetry 91 05/15/18 13:12 Temperature 99.5 F 05/15/18 13:12 Pulse Rate 84 05/15/18 14:52 Respiratory Rate 20 05/15/18 15:30 Blood Pressure 106/53 05/15/18 15:30 O2 Sat by Pulse Oximetry 94 05/15/18 14:52 Oxygen Delivery Oxygen Delivery Nasal Cannula Shortness of Breath/Dyspnea - Medical Records Medical records reviewed: Yes I reviewed the patient's medical records. - Lab Data Lab results reviewed: Yes I reviewed the patient's lab results. Result diagrams: 05/15/18 13:14 05/15/18 13:14 Lab Results 05/15/18 05/15/18 05/15/18 Range/Units 13:14 13:14 13:27 WBC 19.8 H (4.3-11.1) K/mcL RBC 3.56 L (4.19-5.50) M/mcL Hgb 11.2 L (12.9-16.9) g/dL Hct 33.8 L (37.5-50.1) % MCV 94.9 (83.0-100.0) fL MCH 31.5 (28.0-33.3) pg MCHC 33.1 (31.6-35.5) g/dL RDW 14.7 H (11.5-14.5) % Plt Count 122 L (140-400) K/mcL MPV 12.6 H (9.4-12.4) fL Seg Neutrophils % 62.0 % Band Neutrophils % 16.0 H (0-4) % Lymphocytes % 16.0 % Monocytes % 6.0 % Neutrophils # 15.4 H (1.6-8.9) K/mcL Lymphocytes # 3.2 (0.6-4.6) K/mcL Monocytes # 1.2 (0.0-1.3) K/mcL Reactive Lymphocytes Present A (Not Present) Platelet Estimate Decreased L (Normal) Large Platelets Present A (Not Present) VBG pH (7.32-7.42) pH Units VBG pCO2 (41-51) mmHg VBG pO2 (25-50) mmHg VBG HCO3 (21-27) mEq/L Sodium 134 L (136-145) mEq/L Potassium 4.8 (3.5-5.1) mEq/L Chloride 99 (98-107) mEq/L Carbon Dioxide 22 L (23-29) mEq/L BUN 52 H (8-23) mg/dL Creatinine 2.12 H (0.70-1.30) mg/dL Est GFR ( Amer) 38 L (> 60) Est GFR (Non-Af Amer) 31 L (> 60) BUN/Creatinine Ratio 25 (6-26) Glucose 225 H (70-105) mg/dL Calculated Osmolality 299 (280-300) Lactic Acid 2.0 (0.5-2.2) mmol/L Calcium 8.9 (8.6-10.3) mg/dL Troponin I 0.03 (< 0.04) ng/mL 05/15/18 Range/Units 13:42 WBC (4.3-11.1) K/mcL RBC (4.19-5.50) M/mcL Hgb (12.9-16.9) g/dL Hct (37.5-50.1) % MCV (83.0-100.0) fL MCH (28.0-33.3) pg MCHC (31.6-35.5) g/dL RDW (11.5-14.5) % Plt Count (140-400) K/mcL MPV (9.4-12.4) fL Seg Neutrophils % % Band Neutrophils % (0-4) % Lymphocytes % % Monocytes % % Neutrophils # (1.6-8.9) K/mcL Lymphocytes # (0.6-4.6) K/mcL Monocytes # (0.0-1.3) K/mcL Reactive Lymphocytes (Not Present) Platelet Estimate (Normal) Large Platelets (Not Present) VBG pH 7.40 (7.32-7.42) pH Units VBG pCO2 40 L (41-51) mmHg VBG pO2 52 H (25-50) mmHg VBG HCO3 25 (21-27) mEq/L Sodium (136-145) mEq/L Potassium (3.5-5.1) mEq/L Chloride (98-107) mEq/L Carbon Dioxide (23-29) mEq/L BUN (8-23) mg/dL Creatinine (0.70-1.30) mg/dL Est GFR ( Amer) (> 60) Est GFR (Non-Af Amer) (> 60) BUN/Creatinine Ratio (6-26) Glucose (70-105) mg/dL Calculated Osmolality (280-300) Lactic Acid (0.5-2.2) mmol/L Calcium (8.6-10.3) mg/dL Troponin I (< 0.04) ng/mL - Radiology Data Radiology results reviewed: Yes I reviewed the patient's radiology results. - EKG Data EKG attestation: Yes I reviewed and interpreted this EKG. EKG results narrative: Sinus rhythm, rate 79, OR interval 122, QRS 129, QTC 446, left axis deviation, right bundle branch block, non-specific changes anteriorly Critical Care Time Critical Care Time: Yes Total Critical Care Time: 30 Attestation: I personally spent ____30__ minutes devoted to the care of this critically ill patient. This time excludes the time for billable procedures.
[2018-05-15 13:43] LABS: Hematocrit 33.8 % (37.5-50.1); Hemoglobin 11.2 g/dL (12.9-16.9); Mean Corpuscular HGB Conc 33.1 g/dL (31.6-35.5); Mean Corpuscular Hemoglobin 31.5 pg (28.0-33.3); Mean Corpuscular Volume 94.9 fL (83.0-100.0); Mean Platelet Volume 12.6 fL (9.4-12.4); Platelet Count 122 K/mcL (140-400); Red Blood Count 3.56 M/mcL (4.19-5.50); Red Cell Distribution Width 14.7 % (11.5-14.5)
[2018-05-15 13:50] LABS: VBG HCO3 25 mEq/L (21-27); VBG PCO2 40 mmHg (41-51); VBG PO2 52 mmHg (25-50)
[2018-05-15 14:03] LABS: Large Platelets Present (Not Present); Lymphocytes # 3.2 K/mcL (0.6-4.6); Monocytes # 1.2 K/mcL (0.0-1.3); Neutrophils # 15.4 K/mcL (1.6-8.9); Platelet Estimate Decreased (Normal); Reactive Lymphocytes Present (Not Present)
[2018-05-15 14:04] LABS: Calcium 8.9 mg/dL (8.6-10.3); Potassium 4.8 mEq/L (3.5-5.1); Troponin I 0.03 ng/mL (< 0.04)
[2018-05-15] MEDS ORDERED: Piperacillin/Tazobactam 3.375 GM in 0.9 % Sodium Chloride Mini Bag 100 ML IVPB ONE (14:17)
[2018-05-15] MEDS ORDERED: Levofloxacin 750 MG/150 ML 750 MG/150 ML BAG IVPB ONE (14:17)
--- NOTE | 2018-05-15 16:31 | Internal Med History&Physical ---
Date of Encounter: 05/15/18 Time of Encounter: 04:00 Internal Medicine - H&P: HPI History of present illness: Mr. Borges is a 72 year old male presents to the ED via EMS from the nursing facility with the chief complaint of one week history of shortness of breath associated with non productive cough. He was found to be hypoxic with his his sats were in the mid to high 80s, he was placed on 3 L O2 with no improvement and he has to be placed on 5 L of o2 to maintain sats above 90, he was lethargic and hemdinamically unstable with blood pressure of 80/40m with mild improvement with fluid, We recommended to admit the patient to ICU but critical care attending eyeballed the patient at the ER and recommended step down unit and started that he cant r/o further deterioration, and recommended that the patient could be upgraded ICU then. Past Med Surg Social Fam HX - Past Medical History Medical history: cancer (Thyroid w/thyroidectomy), CVA (1.5 years ago w/o residual weakness), diabetes, hypertension, renal disease, thyroid disease ( Thyroidectomy d/t cancer), syncope Additional medical history: thyroid cancer. prostate cancer Psychiatric history: anxiety, depression - Past Surgical History Surgical History: orthopedic, other, thyroidectomy, other, appendectomy Additional surgical history: left AKA. - Social History Smoking Status: Never smoker Smokeless Tobacco Status: No Alcohol use: none Drug use: none - Family History Mother Family Member Ethnicity: Non- Living Status: Hx Family Cardiac Disorders: Yes (CAD) Father Family Member Ethnicity: Non- Living Status: Hx Family Cardiac Disorders: Yes (HD) Internal Medicine - H&P: Meds DULoxetine [Cymbalta] 60 mg PO DAILY 08/05/15 [History] Docusate [Colace] 200 mg PO BID PRN 08/05/15 [History] Lactulose 10 gm PO DAILY PRN 08/05/15 [History] Aspirin 81 mg PO DAILY 03/18/16 [History] Metoprolol Tartrate [Lopressor] 50 mg PO BID 03/18/16 [History] Furosemide [Lasix] 40 mg PO DAILY 07/30/16 [History] Fluticasone Propionate Nasal [Flonase] 50 mcg NS DAILY PRN 10/23/16 [History] Loratadine [Allergy Relief] 10 mg PO DAILY 10/23/16 [History] Amlodipine Besylate 10 mg PO DAILY 12/04/16 [History] Famotidine [Pepcid] 20 mg PO BID 04/08/17 [History] Ferrous Sulfate 325 mg PO BIDWM #30 tablet 04/19/17 [Rx] Atorvastatin [Lipitor] 40 mg PO HS 06/21/17 [History] Clopidogrel [Plavix] 75 mg PO DAILY 06/21/17 [History] Gabapentin [Neurontin] 100 mg PO BID 06/21/17 [History] Lidocaine Patch [Lidoderm 5% patch] 1 each TP DAILY 06/21/17 [History] Baclofen [Lioresal] 10 mg PO TID 08/30/17 [History] Insulin NPH Human Isophane [Novolin N] 65 unit SQ BIDWM 08/30/17 [History] Insulin Regular, Human [Novolin R] 0 - 10 unit SQ TID 08/30/17 [History] Lisinopril [Zestril] 20 mg PO DAILY 03/15/18 [History] Tizanidine HCl 4 mg PO BID PRN 03/15/18 [History] Donepezil [Aricept] 10 mg PO HS tablet 04/16/18 [Rx] HYDROcodone/Acet 10/325 mg [[place] 10-325 mg] 1 each PO Q6H PRN 2 Days #20 tablet 04/16/18 [Rx] Clotrimazole/Betameth Dip CRM [Lotrisone CRM] 1 appl TP BID #1 tube 04/25/18 [Rx ] Guaifenesin [Mucinex] 600 mg PO BID 05/15/18 [History] Ipratropium/Albuterol Neb [Duoneb] 3 ml IH Q6HR 05/15/18 [History] Levothyroxine Sodium [Levo-T] 200 mcg PO QAM 05/15/18 [History] Oxybutynin Chloride [Ditropan Xl] 10 mg PO DAILY 05/15/18 [History] 3 Allergy/AdvReac Type Severity Reaction Status Date / Time adhesive tape Allergy Hives Verified 12/26/17 17:43 pregabalin [From Lyrica] Allergy Swelling Verified 12/26/17 17:43 of Lip/Tongue/Throat Sulfa (Sulfonamide Allergy PER PT Verified 12/26/17 17:43 Antibiotics) UNKNOWN REACTION All Systems PM: A 10-system review of systems was performed and is negative for pertinent findings except as documented above in the HPI. - Constitutional Constitutional: chills, fatigue, fever(s), malaise, weakness, no night sweats - Cardiovascular Cardiovascular ROS IM: dyspnea, no chest pain, no diaphoresis, no lightheadedness, no palpitations, no syncope - Respiratory Respiratory: cough, dyspnea - Gastrointestinal Gastrointestinal: no abdominal pain, no diarrhea, no hematemesis, no hematochezia, no melena, no nausea, no vomiting - Integumentary Integumentary IM: no rash, no unusual bruising - Neurological Neurological ROS: no confusion, no convulsions, no focal weakness, no numbness, no tingling, no tremor(s) - Constitutional Vitals: Temp Pulse Resp BP Pulse Ox 99.5 F 84 20 106/53 94 05/15/18 13:12 05/15/18 14:52 05/15/18 15:30 05/15/18 15:30 05/15/18 14:52 General appearance: Present: mild distress - Head Head exam: Present: atraumatic, normocephalic - Neck Neck exam general surgery: Present: supple, trachea midline. Absent: lymphadenopathy - Respiratory Respiratory exam: Present: respiratory distress, rhonchi, wheezes. Absent: accessory muscle use, rales - Cardiovascular Cardiovascular exam: Present: RRR, +S1, +S2. Absent: diastolic murmur, gallop, rubs, systolic murmur - GI/Abdominal GI/Abdominal exam: Present: normal bowel sounds, soft, no peritoneal signs. Absent: distended, tenderness - Extremities Exam Extremities exam: Present: warm, radial pulses palpable and symmetrical. Absent : calf tenderness, cyanotic, pedal edema Internal Med - H&P Results - Labs CBC & Chem 7: 05/15/18 13:14 05/15/18 13:14 - Assessment and plan (1) Sepsis Current Visit: No Status: Acute Assessment and plan: ASSESSMENT: -Sepsis *Pneumonia *UTI -Aerosols UD q 4 hr, Robitussin -UA -CBCD, BMP in AM -CPP x 1 more, 8 hr after the 1st one -EKG now and in AM -Tylenol 650 mg PO q 4-6 hr PRN pain or fever -Protonix 40 mg IV QD -Heparin 5000 U SQ BID Qualifiers: Sepsis type: sepsis due to unspecified organism Qualified Code(s): A41.9 - Sepsis, unspecified organism (2) HTN (hypertension) Current Visit: No Status: Chronic Qualifiers: Hypertension type: essential hypertension Qualified Code(s): I10 - Essential (primary) hypertension (3) DM (diabetes mellitus), type 2 Current Visit: No Status: Chronic Qualifiers: Diabetes mellitus chcf insulin use: 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 Diabetes mellitus complication status: with kidney complications Diabetes mellitus complication detail: with chronic kidney disease Chronic kidney disease stage : stage 3 (moderate) Qualified Code(s): E11.22 - Type 2 diabetes mellitus with diabetic chronic kidney disease; N18.3 - Chronic kidney disease, stage 3 ( moderate); Z79.4 - prison (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 of insulin (4) Hypothyroidism Current Visit: No Status: Chronic Qualifiers: Hypothyroidism type: postoperative Qualified Code(s): E89.0 - Postprocedural hypothyroidism (5) Acute kidney failure, unspecified Current Visit: No Status: Acute Qualifiers: Acute renal failure type: unspecified Qualified Code(s): N17.9 - Acute kidney failure, unspecified (6) Anemia Current Visit: No Status: Chronic Qualifiers: Anemia type: iron deficiency (7) DVT prophylaxis Current Visit: No Status: Acute - Time Spent With Patient Total time spent is greater than 50% in coordination of care (as documented) at patient's floor/unit and/or counseling patient:
[2018-05-15] MEDS ORDERED: Fluticasone Propionate Nasal 50 MCG/SPRAY BOTTLE NS PRN (20:21)
[2018-05-15] MEDS ORDERED: Naloxone 0.4 MG/ML INJ IVP PRN (20:25)
[2018-05-15] MEDS: 0.9 % Sodium Chloride 1,000 ML IVC SCH (21:20)
[2018-05-15] MEDS: Gabapentin 100 MG CAPSULE PO SCH (21:21)
[2018-05-15] MEDS: Famotidine 20 MG TABLET PO SCH (21:21)
[2018-05-15] MEDS: Ipratropium/Albuterol Neb 3 ML IH SCH (21:58)
[2018-05-16] MEDS ORDERED: D5% in Water 1,000 ML IVC PRN (02:39)
[2018-05-16] MEDS ORDERED: Dextrose Gel 15 GM/37.5 ML TUBE PO PRN ×2 (02:39)
[2018-05-16] MEDS ORDERED: *HR* Dextrose 50 % in Water (Syg) 50 ML SYRINGE IVP PRN (02:39)
[2018-05-16] MEDS: Ipratropium/Albuterol Neb 3 ML IH SCH ×4 (04:20→22:11)
[2018-05-16] MEDS ORDERED: Insulin LISPRO 300 UNITS/3 ML VIAL SQ SCH (06:00)
[2018-05-16] MEDS: 0.9 % Sodium Chloride 1,000 ML IVC SCH (07:11)
[2018-05-16] MEDS ORDERED: Naloxone 0.4 MG/ML INJ IVP PRN (07:17)
[2018-05-16] MEDS: Gabapentin 100 MG CAPSULE PO SCH ×2 (07:48→20:51)
[2018-05-16] MEDS: Famotidine 20 MG TABLET PO SCH ×2 (07:48→20:50)
[2018-05-16] MEDS: amLODIPine 5 MG TABLET PO SCH (07:48)
[2018-05-16] MEDS: Aspirin 81 MG TAB.CHEW PO SCH (07:49)
[2018-05-16] MEDS: Loratadine 10 MG TABLET PO SCH (07:49)
[2018-05-16] MEDS: Piperacillin/Tazobactam 3.375 GM in 0.9 % Sodium Chloride Mini Bag 100 ML IVPB SCH ×3 (07:50→23:45)
[2018-05-16] MEDS ORDERED: Insulin NPH 100 UNIT/ML (x5UNIT) SQ SCH (08:00)
[2018-05-16 08:04] LABS: Basophils % 0.2 %; Eosinophils # 0.1 K/mcL (0.0-0.6); Eosinophils % 0.7 %; Hematocrit 32.6 % (37.5-50.1); Hemoglobin 10.6 g/dL (12.9-16.9); Immature Granulocytes % 1.5 % (0-4); Lymphocytes # 2.7 K/mcL (0.6-4.6); Lymphocytes % 16.1 %; Mean Corpuscular HGB Conc 32.5 g/dL (31.6-35.5); Mean Corpuscular Hemoglobin 31.2 pg (28.0-33.3); Mean Corpuscular Volume 95.9 fL (83.0-100.0); Mean Platelet Volume 11.8 fL (9.4-12.4); Monocytes # 1.4 K/mcL (0.0-1.3); Monocytes % 8.4 %; Neutrophils # 12.3 K/mcL (1.6-8.9); Platelet Count 111 K/mcL (140-400); Red Cell Distribution Width 14.8 % (11.5-14.5); Segmented Neutrophils % 73.1 %
[2018-05-16 08:10] LABS: INR 1.3; Prothrombin Time 14.6 Seconds (9.4-12.1)
[2018-05-16 08:13] LABS: Activated Partial Thrombo Time 33.4 Seconds (26.0-36.0)
[2018-05-16 08:15] LABS: Albumin 3.2 g/dL (3.5-5.7); Albumin/Globulin Ratio 0.8 (1.1-2.2); Bilirubin,Total 0.6 mg/dL (0.3-1.0); Calcium 8.5 mg/dL (8.6-10.3); Chol/HDL Ratio 5.9 (0-4.9); Globulin 3.8 g/dL (2.4-3.5); Phosphorous 3.9 mg/dL (2.7-4.5); Potassium 4.1 mEq/L (3.5-5.1)
--- NOTE | 2018-05-16 08:23 | Pulmonology Consult Note ---
Date of Encounter: 05/16/18 Time of Encounter: 08:20 Assessment and Plan (1) Acute respiratory failure with hypoxia Current Visit: Yes Status: Acute This is secondary to pneumonia complicated by hydrostatic pulmonary edema overall improving saturation high 90s on 5 L Nesacaine of the day weaned down to keep saturation around 92%. Encourage early ambulation out of bed to chair and incentive spirometer to mitigate the effects of atelectasis and VQ mismatching Consider outpatient pulmonary follow-up for PFTs (2) Pneumonia Current Visit: Yes Status: Acute Recommend checking sputum and fu/u blood cultures along send urine Legionella and strep pneumo antigens if not already obtained. I suspect he can be safely de-escalated to Levaquin to complete 7 day course based upon clinical response Qualifiers: Pneumonia type: due to unspecified organism Laterality: right Lung location: unspecified part of lung Qualified Code(s): J18.9 - Pneumonia, unspecified organism (3) THOMAS (acute kidney injury) Current Visit: Yes Status: Acute This is likely secondary to prerenal azotemia it is improving with IV fluids. Consider on starting a oral loop diuretic over the next 24 hours for hydrostatic pulmonary edema as tolerated by renal function. Defer management to the primary medicine service History of Present Illness Consult date: 05/16/18 Requesting physician: Francisca Pierce Reason for consult: hypoxemia Chief complaint: Difficulty in Breathing History of present illness: This is a 72-year-old gentleman who presented from the intermediate where he resides complaining of shortness of breath. Per EMS his oxygen saturations were in the mid to high 80s when they found him in the nursing facility. His been feeling short of breath for about the last week and he had a wet but nonproductive cough feels like he could not mobilize any secretions. Denied any fever or chills chest pain abdominal pain or vomiting or diarrhea. At baseline the patient does not have an oxygen requirement In the emergency department was noted to be hypotensive which responded to volume resuscitation. Lactate was normal on admission but an elevated white count. Chest x-ray was performed which was notable for linear opacity left lung possibly related to pneumonia. Repeat chest x-ray today was notable for bilateral interstitial edema. He was also noted to have mild acute kidney injury. Pulmonary was consulted because of the patient's hypoxemia. The patient does not have a history of any formal pulmonary diagnosis in the past. He is a lifelong nonsmoker. 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 He denies daily cough or sputum production no hemoptysis says that breathing is much better when I evaluated him he was sitting up eating breakfast in no discomfort Past Med Surg Social Fam HX - Past Medical History Medical history: cancer (Thyroid w/thyroidectomy), CVA (1.5 years ago w/o residual weakness), diabetes, hypertension, renal disease, thyroid disease ( Thyroidectomy d/t cancer), syncope Additional medical history: thyroid cancer. prostate cancer Psychiatric history: anxiety, depression - Past Surgical History Surgical History: orthopedic, other, thyroidectomy, other, appendectomy Additional surgical history: left AKA. - Social History Smoking Status: Never smoker Smokeless Tobacco Status: No Alcohol use: none Drug use: none - Family History Mother Family Member Ethnicity: Non- Living Status: Hx Family Cardiac Disorders: Yes (CAD) Father Family Member Ethnicity: Non- Living Status: Hx Family Cardiac Disorders: Yes (HD) Medications and Allergies DULoxetine [Cymbalta] 60 mg PO DAILY 08/05/15 [History] Docusate [Colace] 200 mg PO BID PRN 08/05/15 [History] Lactulose 10 gm PO DAILY PRN 08/05/15 [History] Aspirin 81 mg PO DAILY 03/18/16 [History] Metoprolol Tartrate [Lopressor] 50 mg PO BID 03/18/16 [History] Furosemide [Lasix] 40 mg PO DAILY 07/30/16 [History] Fluticasone Propionate Nasal [Flonase] 50 mcg NS DAILY PRN 10/23/16 [History] Loratadine [Allergy Relief] 10 mg PO DAILY 10/23/16 [History] Amlodipine Besylate 10 mg PO DAILY 12/04/16 [History] Famotidine [Pepcid] 20 mg PO BID 04/08/17 [History] Ferrous Sulfate 325 mg PO BIDWM #30 tablet 04/19/17 [Rx] Atorvastatin [Lipitor] 40 mg PO HS 06/21/17 [History] Clopidogrel [Plavix] 75 mg PO DAILY 06/21/17 [History] Gabapentin [Neurontin] 100 mg PO BID 06/21/17 [History] Lidocaine Patch [Lidoderm 5% patch] 1 each TP DAILY 06/21/17 [History] Baclofen [Lioresal] 10 mg PO TID 08/30/17 [History] Insulin NPH Human Isophane [Novolin N] 65 unit SQ BIDWM 08/30/17 [History] Insulin Regular, Human [Novolin R] 0 - 10 unit SQ TID 08/30/17 [History] Lisinopril [Zestril] 20 mg PO DAILY 03/15/18 [History] Tizanidine HCl 4 mg PO BID PRN 03/15/18 [History] Donepezil [Aricept] 10 mg PO HS tablet 04/16/18 [Rx] HYDROcodone/Acet 10/325 mg [[place] 10-325 mg] 1 each PO Q6H PRN 2 Days #20 tablet 04/16/18 [Rx] Clotrimazole/Betameth Dip CRM [Lotrisone CRM] 1 appl TP BID #1 tube 04/25/18 [Rx ] Guaifenesin [Mucinex] 600 mg PO BID 05/15/18 [History] Ipratropium/Albuterol Neb [Duoneb] 3 ml IH Q6HR 05/15/18 [History] Levothyroxine Sodium [Levo-T] 200 mcg PO QAM 05/15/18 [History] Oxybutynin Chloride [Ditropan Xl] 10 mg PO DAILY 05/15/18 [History] 3 Allergy/AdvReac Type Severity Reaction Status Date / Time adhesive tape Allergy Hives Verified 12/26/17 17:43 pregabalin [From Lyrica] Allergy Swelling Verified 12/26/17 17:43 of Lip/Tongue/Throat Sulfa (Sulfonamide Allergy PER PT Verified 12/26/17 17:43 Antibiotics) UNKNOWN REACTION All Systems: The remainder of the systems were reviewed and are negative Physical Examination Vital Signs: Vital Signs, Last 4 Hours Temp Pulse Resp BP Pulse Ox 05/16/18 07:33 98.0 F 87 16 115/61 93 05/16/18 04:25 98.4 F 87 17 121/62 97 General appearance: no acute distress Eyes: nonicteric ENT: oropharynx moist Neck: supple Auscultation: bilateral: rhonchi Cardiovascular: regular rate and rhythm Gastrointestinal: normoactive bowel sounds, tender Integumentary: normal Extremities: other (Right [id number] amputation) Musculoskeletal: other normal mental status, non-focal exam mood appropriate Results - Laboratory Findings CBC and BMP: 05/16/18 07:44 05/16/18 07:44 PT/INR, D-dimer PT 14.6 Seconds (9.4-12.1) H 05/16/18 07:44 Abnormal lab findings: Abnormal lab results WBC 16.8 K/mcL (4.3-11.1) H 05/16/18 07:44 RBC 3.40 M/mcL (4.19-5.50) L 05/16/18 07:44 Hgb 10.6 g/dL (12.9-16.9) L 05/16/18 07:44 Hct 32.6 % (37.5-50.1) L 05/16/18 07:44 RDW 14.8 % (11.5-14.5) H 05/16/18 07:44 Plt Count 111 K/mcL (140-400) L 05/16/18 07:44 Band Neutrophils % 16.0 % (0-4) H 05/15/18 13:14 Neutrophils # 15.4 K/mcL (1.6-8.9) H 05/15/18 13:14 Reactive Lymphocytes Present (Not Present) A 05/15/18 13:14 Platelet Estimate Decreased (Normal) L 05/15/18 13:14 Large Platelets Present (Not Present) A 05/15/18 13:14 PT 14.6 Seconds (9.4-12.1) H 05/16/18 07:44 VBG pCO2 40 mmHg (41-51) L 05/15/18 13:42 VBG pO2 52 mmHg (25-50) H 05/15/18 13:42 BUN 49 mg/dL (8-23) H 05/16/18 07:44 Creatinine 1.63 mg/dL (0.70-1.30) H 05/16/18 07:44 Est GFR ( Amer) 51 (> 60) L 05/16/18 07:44 Est GFR (Non-Af Amer) 42 (> 60) L 05/16/18 07:44 BUN/Creatinine Ratio 30 (6-26) H 05/16/18 07:44 Glucose 144 mg/dL (70-105) H 05/16/18 07:44 POC Glucose 125 mg/dL (70-99) H 05/15/18 23:52 Calculated Osmolality 304 (280-300) H 05/16/18 07:44 Calcium 8.5 mg/dL (8.6-10.3) L 05/16/18 07:44 Albumin 3.2 g/dL (3.5-5.7) L 05/16/18 07:44 Globulin 3.8 g/dL (2.4-3.5) H 05/16/18 07:44 Albumin/Globulin Ratio 0.8 (1.1-2.2) L 05/16/18 07:44 Triglycerides 155 mg/dL (< 150) H 05/16/18 07:44 VLDL Cholesterol, Calc 31 mg/dL (< 31) H 05/16/18 07:44 HDL Cholesterol 14 mg/dL (40-59) L 05/16/18 07:44 Cholesterol/HDL Ratio 5.9 (0-4.9) H 05/16/18 07:44 - Diagnostic Findings Chest x-ray: report reviewed, image reviewed - Clinical Findings Intake & Output: Intake & Output 05/15/18 05/16/18 05/16/18 23:59 07:59 15:59 Intake Total 1150 / 1150 1000 / 1000 Output Total 400 / 400 425 / 425 Balance 750 / 750 575 / 575 Weight 99.3 kg Consult Discharge Plan - Plan Referrals: Chandan Fitzgerald MD [Primary Care Provider] -
[2018-05-16 08:38] LABS: Platelet Estimate Decreased (Normal); Reactive Lymphocytes Present (Not Present)
[2018-05-16 08:39] LABS: Large Platelets Present (Not Present)
--- NOTE | 2018-05-16 08:45 | Electrocardiograph Report ---
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
--- NOTE | 2018-05-16 09:18 | Internal Med Progress Note ---
Date of Encounter: 05/16/18 Time of Encounter: 11:00 - Assessment and plan (1) Acute respiratory failure with hypoxia Current Visit: Yes Status: Acute Assessment and plan: Patient still requiring high amounts of supplemental oxygenation due to pneumonia Continue to wean as tolerates (2) Pneumonia Current Visit: Yes Status: Acute Assessment and plan: Continue treatment with IV Zosyn and IV Levaquin Qualifiers: Pneumonia type: due to unspecified organism Laterality: right Lung location: unspecified part of lung Qualified Code(s): J18.9 - Pneumonia, unspecified organism (3) Sepsis Current Visit: No Status: Resolved Assessment and plan: Resolved; will continue management as above Qualifiers: Sepsis type: sepsis due to unspecified organism Qualified Code(s): A41.9 - Sepsis, unspecified organism (4) CKD (chronic kidney disease), stage III Current Visit: No Status: Acute Assessment and plan: Creatinine at 1.63; continue to monitor (5) Hypothyroidism Current Visit: No Status: Chronic Assessment and plan: Continue levothyroxine Qualifiers: Hypothyroidism type: postoperative Qualified Code(s): E89.0 - Postprocedural hypothyroidism (6) DM (diabetes mellitus), type 2 Current Visit: No Status: Chronic Assessment and plan: Continue coverage with sliding-scale insulin Qualifiers: Diabetes mellitus penitentiary insulin use: with penitentiary use Diabetes mellitus complication status: with kidney complications Diabetes mellitus complication detail: with chronic kidney disease Chronic kidney disease stage : stage 3 (moderate) Qualified Code(s): E11.22 - Type 2 diabetes mellitus with diabetic chronic kidney disease; N18.3 - Chronic kidney disease, stage 3 ( moderate); Z79.4 - 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 (7) Anemia Current Visit: No Status: Chronic Assessment and plan: Patient with chronic anemia which is stable Qualifiers: Anemia type: iron deficiency Qualified Code(s): D50.9 - Iron deficiency anemia, unspecified (8) HTN (hypertension) Current Visit: No Status: Chronic Assessment and plan: Controlled; continue home medications Qualifiers: Hypertension type: essential hypertension Qualified Code(s): I10 - Essential (primary) hypertension (9) DVT prophylaxis Current Visit: No Status: Acute Assessment and plan: Subcutaneous heparin - Time Spent With Patient Total time spent is greater than 50% in coordination of care (as documented) at patient's floor/unit and/or counseling patient: - Subjective Interval history: Patient presented with shortness of breath found to be in acute hypoxic respiratory failure requiring high amounts of O2 supplementation. Sepsis has resolved however and leukocytosis improving on IV antibiotics. - Constitutional Vitals: Temp Pulse Resp BP Pulse Ox 98.0 F 87 16 115/61 93 05/16/18 07:33 05/16/18 07:33 05/16/18 07:33 05/16/18 07:33 05/16/18 07:33 General appearance: Present: mild distress, no acute distress - Respiratory Respiratory exam: Present: CTAB. Absent: accessory muscle use, rales, rhonchi, wheezes - Cardiovascular Cardiovascular exam: Present: RRR, +S1, +S2. Absent: diastolic murmur, gallop, rubs, systolic murmur Internal Medicine: Result - Labs CBC & Chem 7: 05/16/18 07:44 05/16/18 07:44 Labs: Short CBC 05/16/18 Range/Units 07:44 WBC 16.8 H (4.3-11.1) K/mcL Hgb 10.6 L (12.9-16.9) g/dL Hct 32.6 L (37.5-50.1) % Plt Count 111 L (140-400) K/mcL Neutrophils # 12.3 H (1.6-8.9) K/mcL BMP 05/16/18 07:44 Sodium 139 Potassium 4.1 Chloride 106 Carbon Dioxide 23 BUN 49 H Creatinine 1.63 H Glucose 144 H Calcium 8.5 L Liver Function 05/16/18 Range/Units 07:44 Total Bilirubin 0.6 (0.3-1.0) mg/dL AST 23 (13-39) Units/L ALT 14 (7-52) Units/L Alkaline Phosphatase 70 (34-104) Units/L Albumin 3.2 L (3.5-5.7) g/dL - ABG Interpretation ABG results: PT/INR, D-dimer PT 14.6 Seconds (9.4-12.1) H 05/16/18 07:44 - Impressions Impressions Chest X-Ray 05/16/18 00:00 IMPRESSION: No significant interval change in linear opacity in left lung. Right basilar airspace opacity is unchanged. There is slightly increased interstitial opacities bilaterally which could reflect mild edema. D/ / Tessa Garcia MD / Tessa Garcia MD Interpreting Provider: Tessa Garcia MD Consult Discharge Plan - Plan Referrals: Chandan Fitzgerald MD [Primary Care Provider] - 05/24/18 1:00 pm
[2018-05-16] MEDS: Insulin LISPRO 300 UNITS/3 ML VIAL SQ SCH ×3 (12:29→20:53)
[2018-05-16] MEDS: *HR* Heparin 5,000 UNIT/ML VIAL SQ SCH (17:05)
[2018-05-16] MEDS: Insulin NPH 100 UNIT/ML (x5UNIT) SQ SCH (17:05)
[2018-05-16] MEDS: *HR* HYDROcodone/Acet 10/325 mg TABLET PO PRN (20:51)
[2018-05-17] MEDS: Ipratropium/Albuterol Neb 3 ML IH SCH ×4 (04:45→21:36)
[2018-05-17] MEDS: *HR* Heparin 5,000 UNIT/ML VIAL SQ SCH ×2 (05:09→17:49)
[2018-05-17] MEDS: *HR* HYDROcodone/Acet 10/325 mg TABLET PO PRN ×3 (05:09→21:29)
[2018-05-17] MEDS: Famotidine 20 MG TABLET PO SCH ×2 (07:43→21:30)
[2018-05-17] MEDS: Aspirin 81 MG TAB.CHEW PO SCH (07:43)
[2018-05-17] MEDS: Gabapentin 100 MG CAPSULE PO SCH ×2 (07:43→21:30)
[2018-05-17] MEDS: Loratadine 10 MG TABLET PO SCH (07:44)
[2018-05-17] MEDS: tiZANidine 4 MG TABLET PO PRN ×3 (07:44→21:29)
[2018-05-17] MEDS: Insulin LISPRO 300 UNITS/3 ML VIAL SQ SCH ×3 (07:44→17:50)
[2018-05-17] MEDS: amLODIPine 5 MG TABLET PO SCH (07:44)
[2018-05-17] MEDS: Insulin NPH 100 UNIT/ML (x5UNIT) SQ SCH ×2 (07:44→17:49)
[2018-05-17] MEDS ORDERED: Levofloxacin 750 MG/150 ML 750 MG/150 ML BAG IVPB SCH (09:00)
[2018-05-17] MEDS: Piperacillin/Tazobactam 3.375 GM in 0.9 % Sodium Chloride Mini Bag 100 ML IVPB SCH (09:08)
--- NOTE | 2018-05-17 09:29 | Internal Med Progress Note ---
Date of Encounter: 05/18/18 Time of Encounter: 11:00 - Assessment and plan (1) Acute respiratory failure with hypoxia Current Visit: Yes Status: Acute Assessment and plan: Patient still requiring supplemental oxygenation, although decreased amounts, due to pneumonia Continue IV antibiotics as below and to wean supplemental oxygen as tolerates (2) Pneumonia Current Visit: Yes Status: Acute Assessment and plan: Leukocytosis improving and patient afebrile Will discontinue IV Zosyn but continue IV Levaquin Qualifiers: Pneumonia type: due to unspecified organism Laterality: right Lung location: unspecified part of lung Qualified Code(s): J18.9 - Pneumonia, unspecified organism (3) Sepsis Current Visit: No Status: Resolved Assessment and plan: Resolved; will continue management as above Qualifiers: Sepsis type: sepsis due to unspecified organism Qualified Code(s): A41.9 - Sepsis, unspecified organism (4) CKD (chronic kidney disease), stage III Current Visit: No Status: Acute Assessment and plan: Creatinine at 1.34; continue to monitor (5) Hypothyroidism Current Visit: No Status: Chronic Assessment and plan: Continue levothyroxine Qualifiers: Hypothyroidism type: postoperative Qualified Code(s): E89.0 - Postprocedural hypothyroidism (6) DM (diabetes mellitus), type 2 Current Visit: No Status: Chronic Assessment and plan: Continue coverage with sliding-scale insulin Qualifiers: Diabetes mellitus parts counterman insulin use: with parts counterman use Diabetes mellitus complication status: with kidney complications Diabetes mellitus complication detail: with chronic kidney disease Chronic kidney disease stage : stage 3 (moderate) Qualified Code(s): E11.22 - Type 2 diabetes mellitus with diabetic chronic kidney disease; N18.3 - Chronic kidney disease, stage 3 ( moderate); Z79.4 - prison (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 of insulin (7) Anemia Current Visit: No Status: Chronic Assessment and plan: Patient with chronic anemia which is stable Qualifiers: Anemia type: iron deficiency Qualified Code(s): D50.0 - Iron deficiency anemia secondary to blood loss (chronic) (8) HTN (hypertension) Current Visit: No Status: Chronic Qualifiers: Hypertension type: essential hypertension Qualified Code(s): I10 - Essential (primary) hypertension (9) DVT prophylaxis Current Visit: No Status: Acute Assessment and plan: Subcutaneous heparin - Time Spent With Patient Total time spent is greater than 50% in coordination of care (as documented) at patient's floor/unit and/or counseling patient: - Subjective Interval history: Patient presented with shortness of breath found to be in acute hypoxic respiratory failure Patient this morning still requiring high amounts of O2 supplementation. Sepsis has resolved however and leukocytosis continues to on IV antibiotics. - Constitutional Vitals: Temp Pulse Resp BP Pulse Ox 98.8 F 89 20 144/65 94 05/17/18 07:20 05/17/18 07:20 05/17/18 07:20 05/17/18 07:20 05/17/18 07:20 General appearance: Present: mild distress, no acute distress - Respiratory Respiratory exam: Present: wheezes (Expiratory wheezes). Absent: respiratory distress, rhonchi, tachypnea - Cardiovascular Cardiovascular exam: Present: RRR, +S1, +S2. Absent: diastolic murmur, gallop, rubs, systolic murmur Internal Medicine: Result - Labs CBC & Chem 7: 05/17/18 09:36 05/17/18 09:36 - ABG Interpretation ABG results: PT/INR, D-dimer PT 14.6 Seconds (9.4-12.1) H 05/16/18 07:44 Consult Discharge Plan - Plan Referrals: Chandan Fitzgerald MD [Primary Care Provider] - 05/24/18 1:00 pm
[2018-05-17 10:16] LABS: BUN/Creatinine Ratio 25 (6-26); Blood Urea Nitrogen 34 mg/dL (8-23); Calcium 8.6 mg/dL (8.6-10.3); Carbon Dioxide 21 mEq/L (23-29); Chloride 107 mEq/L (98-107); Glucose 288 mg/dL (70-105); Osmolality,Calculated 302 (280-300); Potassium 4.2 mEq/L (3.5-5.1); Sodium 137 mEq/L (136-145); eGFR For African Americans > 60 (> 60); eGFR For Non-African Americans 53 (> 60)
[2018-05-17 11:47] LABS: Basophils # 0.1 K/mcL (0.0-0.2); Basophils % 0.6 %; Eosinophils # 0.3 K/mcL (0.0-0.6); Eosinophils % 2.3 %; Hematocrit 28.9 % (37.5-50.1); Hemoglobin 9.1 g/dL (12.9-16.9); Immature Granulocytes % 4.1 % (0-4); Lymphocytes # 1.7 K/mcL (0.6-4.6); Lymphocytes % 13.1 %; Mean Corpuscular HGB Conc 31.5 g/dL (31.6-35.5); Mean Corpuscular Hemoglobin 30.4 pg (28.0-33.3); Mean Corpuscular Volume 96.7 fL (83.0-100.0); Mean Platelet Volume 12.2 fL (9.4-12.4); Monocytes % 7.6 %; Neutrophils # 9.1 K/mcL (1.6-8.9); Platelet Count 132 K/mcL (140-400); Red Blood Count 2.99 M/mcL (4.19-5.50); Red Cell Distribution Width 14.5 % (11.5-14.5); Segmented Neutrophils % 72.3 %
[2018-05-17 11:55] LABS: Platelet Estimate Slight Decrease (Normal); Reactive Lymphocytes Present (Not Present)
[2018-05-17] MEDS: Chloraseptic Spray 177 ML BOTTLE MM PRN ×2 (17:53→21:32)
[2018-05-18] MEDS: Ipratropium/Albuterol Neb 3 ML IH SCH ×2 (03:49→10:10)
[2018-05-18] MEDS: Insulin LISPRO 300 UNITS/3 ML VIAL SQ SCH ×3 (05:37→11:26)
[2018-05-18] MEDS: Clotrimazole/Betameth Dip CRM 45 APPL/45 GM TUBE TP SCH ×2 (05:38→08:14)
[2018-05-18] MEDS: *HR* HYDROcodone/Acet 10/325 mg TABLET PO PRN (05:38)
[2018-05-18] MEDS: *HR* Heparin 5,000 UNIT/ML VIAL SQ SCH (05:38)
[2018-05-18] MEDS: Famotidine 20 MG TABLET PO SCH (08:14)
[2018-05-18] MEDS: Gabapentin 100 MG CAPSULE PO SCH (08:14)
[2018-05-18] MEDS: amLODIPine 5 MG TABLET PO SCH (08:14)
[2018-05-18] MEDS: Aspirin 81 MG TAB.CHEW PO SCH (08:14)
[2018-05-18] MEDS: Loratadine 10 MG TABLET PO SCH (08:14)
[2018-05-18] MEDS: Insulin NPH 100 UNIT/ML (x5UNIT) SQ SCH (08:15)
--- NOTE | 2018-05-18 08:22 | Internal Med Progress Note ---
Date of Encounter: 05/18/18 - Assessment and plan (1) Acute respiratory failure with hypoxia Current Visit: Yes Status: Acute (2) Pneumonia Current Visit: Yes Status: Acute Qualifiers: Pneumonia type: due to unspecified organism Laterality: right Lung location: unspecified part of lung Qualified Code(s): J18.9 - Pneumonia, unspecified organism (3) Sepsis Current Visit: No Status: Resolved Qualifiers: Sepsis type: sepsis due to unspecified organism Qualified Code(s): A41.9 - Sepsis, unspecified organism (4) CKD (chronic kidney disease), stage III Current Visit: No Status: Acute (5) Hypothyroidism Current Visit: No Status: Chronic Qualifiers: Hypothyroidism type: postoperative Qualified Code(s): E89.0 - Postprocedural hypothyroidism (6) DM (diabetes mellitus), type 2 Current Visit: No Status: Chronic Qualifiers: Diabetes mellitus intermediate manager insulin use: with halfway use Diabetes mellitus complication status: with kidney complications Diabetes mellitus complication detail: with chronic kidney disease Chronic kidney disease stage : stage 3 (moderate) Qualified Code(s): E11.22 - Type 2 diabetes mellitus with diabetic chronic kidney disease; N18.3 - Chronic kidney disease, stage 3 ( moderate); Z79.4 - [facility] (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 of insulin (7) Anemia Current Visit: No Status: Chronic Qualifiers: Anemia type: iron deficiency Qualified Code(s): D50.0 - Iron deficiency anemia secondary to blood loss (chronic) (8) HTN (hypertension) Current Visit: No Status: Chronic Qualifiers: Hypertension type: essential hypertension Qualified Code(s): I10 - Essential (primary) hypertension (9) DVT prophylaxis Current Visit: No Status: Acute - Time Spent With Patient Total time spent is greater than 50% in coordination of care (as documented) at patient's floor/unit and/or counseling patient: - Subjective Interval history: Patient presented with shortness of breath found to be in acute hypoxic respiratory failure Patient this morning still requiring high amounts of O2 supplementation. Sepsis has resolved however and leukocytosis continues to on IV antibiotics. - Constitutional Vitals: Temp Pulse Resp BP Pulse Ox 99.2 F 75 18 139/70 96 05/18/18 07:11 05/18/18 07:11 05/18/18 07:11 05/18/18 07:11 05/18/18 07:11 General appearance: Present: mild distress, no acute distress Internal Medicine: Result - Labs CBC & Chem 7: 05/17/18 09:36 05/17/18 09:36 Labs: Short CBC 05/17/18 Range/Units 09:36 WBC 12.6 H (4.3-11.1) K/mcL Hgb 9.1 L D (12.9-16.9) g/dL Hct 28.9 L (37.5-50.1) % Plt Count 132 L (140-400) K/mcL Neutrophils # 9.1 H (1.6-8.9) K/mcL BMP 05/17/18 09:36 Sodium 137 Potassium 4.2 Chloride 107 Carbon Dioxide 21 L BUN 34 H Creatinine 1.34 H Glucose 288 H Calcium 8.6 - ABG Interpretation ABG results: PT/INR, D-dimer PT 14.6 Seconds (9.4-12.1) H 05/16/18 07:44 Consult Discharge Plan - Plan Referrals: Chandan Fitzgerald MD [Primary Care Provider] - 05/24/18 1:00 pm
[2018-05-18 10:54] LABS: Hematocrit 34.1 % (37.5-50.1); Mean Corpuscular HGB Conc 33.1 g/dL (31.6-35.5); Mean Corpuscular Hemoglobin 31.3 pg (28.0-33.3); Mean Corpuscular Volume 94.5 fL (83.0-100.0); Mean Platelet Volume 11.4 fL (9.4-12.4); Platelet Count 155 K/mcL (140-400); Red Blood Count 3.61 M/mcL (4.19-5.50); Red Cell Distribution Width 14.1 % (11.5-14.5)
[2018-05-18 10:55] LABS: Hemoglobin 11.3 g/dL (12.9-16.9)
[2018-05-18 11:11] LABS: BUN/Creatinine Ratio 24 (6-26); Blood Urea Nitrogen 28 mg/dL (8-23); Calcium 9.2 mg/dL (8.6-10.3); Carbon Dioxide 20 mEq/L (23-29); Chloride 103 mEq/L (98-107); Glucose 193 mg/dL (70-105); Osmolality,Calculated 287 (280-300); Potassium 4.3 mEq/L (3.5-5.1); Sodium 133 mEq/L (136-145); eGFR For African Americans > 60 (> 60); eGFR For Non-African Americans > 60 (> 60)
[2018-05-18 11:12] LABS: Eosinophils # 0.6 K/mcL (0.0-0.6); Lymphocytes # 2.6 K/mcL (0.6-4.6); Monocytes # 1.1 K/mcL (0.0-1.3); Neutrophils # 9.9 K/mcL (1.6-8.9)
[2018-05-18 11:13] LABS: Platelet Estimate Normal (Normal); Reactive Lymphocytes Present (Not Present)
[2018-05-18 11:14] LABS: Large Platelets Present (Not Present)
--- NOTE | 2018-05-18 14:44 | Physician Discharge Referral ---
ExtendedCare Referral Info Institutional Level of Care: Skilled - Diagnosis (1) Acute respiratory failure with hypoxia Status: Acute (2) Pneumonia Status: Acute (3) Sepsis Status: Resolved (4) CKD (chronic kidney disease), stage III Status: Acute (5) Hypothyroidism Status: Chronic (6) DM (diabetes mellitus), type 2 Status: Chronic (7) Anemia Status: Chronic (8) HTN (hypertension) Status: Chronic (9) DVT prophylaxis Status: Acute - Transfer Medications Prescriptions: Gabapentin [Neurontin] 100 mg PO BID 4 Days #8 capsule HYDROcodone/Acet 10/325 mg [[place] 10-325 mg] 1 each PO Q8H PRN 4 Days #16 tablet PRN Reason: Pain 6 - 10 Home Medications: DULoxetine [Cymbalta] 60 mg PO DAILY 08/05/15 [History] Docusate [Colace] 200 mg PO BID PRN 08/05/15 [History] Lactulose 10 gm PO DAILY PRN 08/05/15 [History] Aspirin 81 mg PO DAILY 03/18/16 [History] Metoprolol Tartrate [Lopressor] 50 mg PO BID 03/18/16 [History] Furosemide [Lasix] 40 mg PO DAILY 07/30/16 [History] Fluticasone Propionate Nasal [Flonase] 50 mcg NS DAILY PRN 10/23/16 [History] Loratadine [Allergy Relief] 10 mg PO DAILY 10/23/16 [History] Amlodipine Besylate 10 mg PO DAILY 12/04/16 [History] Famotidine [Pepcid] 20 mg PO BID 04/08/17 [History] Ferrous Sulfate 325 mg PO BIDWM #30 tablet 04/19/17 [Rx] Atorvastatin [Lipitor] 40 mg PO HS 06/21/17 [History] Clopidogrel [Plavix] 75 mg PO DAILY 06/21/17 [History] Lidocaine Patch [Lidoderm 5% patch] 1 each TP DAILY 06/21/17 [History] Baclofen [Lioresal] 10 mg PO TID 08/30/17 [History] Insulin NPH Human Isophane [Novolin N] 65 unit SQ BIDWM 08/30/17 [History] Insulin Regular, Human [Novolin R] 0 - 10 unit SQ TID 08/30/17 [History] Lisinopril [Zestril] 20 mg PO DAILY 03/15/18 [History] Tizanidine HCl 4 mg PO BID PRN 03/15/18 [History] Donepezil [Aricept] 10 mg PO HS tablet 04/16/18 [Rx] Clotrimazole/Betameth Dip CRM [Lotrisone CRM] 1 appl TP BID #1 tube 04/25/18 [Rx ] Guaifenesin [Mucinex] 600 mg PO BID 05/15/18 [History] Ipratropium/Albuterol Neb [Duoneb] 3 ml IH Q6HR 05/15/18 [History] Levothyroxine Sodium [Levo-T] 200 mcg PO QAM 05/15/18 [History] Oxybutynin Chloride [Ditropan Xl] 10 mg PO DAILY 05/15/18 [History] Gabapentin [Neurontin] 100 mg PO BID 4 Days #8 capsule 05/18/18 [Rx] HYDROcodone/Acet 10/325 mg [[place] 10-325 mg] 1 each PO Q8H PRN 4 Days #16 tablet 05/18/18 [Rx] Allergies/Adverse Reactions: 3 Allergy/AdvReac Type Severity Reaction Status Date / Time adhesive tape Allergy Hives Verified 12/26/17 17:43 pregabalin [From Lyrica] Allergy Swelling Verified 12/26/17 17:43 of Lip/Tongue/Throat Sulfa (Sulfonamide Allergy PER PT Verified 12/26/17 17:43 Antibiotics) UNKNOWN REACTION - Respiratory Orders Smoking Cessation: Smoking cessation has been advised. For more information, call the [place] Tobacco Quit Line at 9-074-EBVN-NOW. CERTIFICATION: I certify that the transfer of the above named patient to an Extended Care Facility is necessary for the continuing treatment of the diagnosis listed. The above information is true and accurate reflection of patient's current condition. Confidential - Redisclosure prohibited without a patient's written consent.
--- NOTE | 2018-05-18 14:44 | Discharge Summary ---
- NOTES TO OUTPATIENT PROVIDER Notes to Outpatient Provider: none Date of Encounter: 05/18/18 Time of Encounter: 11:00 - Discharge Diagnosis (1) Acute respiratory failure with hypoxia Priority: Primary Status: Acute (2) Pneumonia Priority: Primary Status: Acute Qualifiers: Pneumonia type: due to unspecified organism Laterality: right Lung location: unspecified part of lung Qualified Code(s): J18.9 - Pneumonia, unspecified organism (3) Sepsis Priority: Primary Status: Resolved Qualifiers: Sepsis type: sepsis due to unspecified organism Qualified Code(s): A41.9 - Sepsis, unspecified organism (4) CKD (chronic kidney disease), stage III Priority: Secondary Status: Acute (5) Hypothyroidism Priority: Secondary Status: Chronic Qualifiers: Hypothyroidism type: postoperative Qualified Code(s): E89.0 - Postprocedural hypothyroidism (6) DM (diabetes mellitus), type 2 Priority: Secondary Status: Chronic Qualifiers: Diabetes mellitus half-way insulin use: with exterminator helper use Diabetes mellitus complication status: with kidney complications Diabetes mellitus complication detail: with chronic kidney disease Chronic kidney disease stage : stage 3 (moderate) Qualified Code(s): E11.22 - Type 2 diabetes mellitus with diabetic chronic kidney disease; N18.3 - Chronic kidney disease, stage 3 ( moderate); Z79.4 - FDC (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 of insulin (7) Anemia Priority: Secondary Status: Chronic Qualifiers: Anemia type: iron deficiency Qualified Code(s): D50.0 - Iron deficiency anemia secondary to blood loss (chronic) (8) HTN (hypertension) Priority: Secondary Status: Chronic Qualifiers: Hypertension type: essential hypertension Qualified Code(s): I10 - Essential (primary) hypertension Hospital course: Patient is a 72-year-old male with past medical history significant for cancer ( Thyroid w/thyroidectomy), CVA (1.5 years ago w/o residual weakness), diabetes, hypertension, renal disease and thyroid disease (Thyroidectomy d/t cancer) who presented to the ER on 05/16/18 due to shortness of breath. Patient reported of having shortness of breath for approximately one week with nonproductive cough so decided to come to the ER. In the ER, patient was found to be hypoxic with were in the mid to high 80s, he was placed on 3 L O2 with no improvement and he has to be placed on 5 L of o2 to maintain sats above 90, he was lethargic and hemodynamically unstable with blood pressure of 80/40m with mild improvement with fluid. Patient was sent to the ICU for further management and evaluation. During patients hospital stay his hypoxia improved and patient was transferred to the medical floor for continued treatment for pneumonia with IV antibiotics. Patients sepsis resolved and he was weaned off supplemental oxygenation. Patient is now medically stable to be discharged back to the [facility]. - Time Spent with Patient Total time spent providing and/or coordinating discharge services: Less than 30 minutes - Discharge Medications Prescriptions: Gabapentin [Neurontin] 100 mg PO BID 4 Days #8 capsule HYDROcodone/Acet 10/325 mg [Cash 10-325 mg] 1 each PO Q8H PRN 4 Days #16 tablet PRN Reason: Pain 6 - 10 Home Medications: DULoxetine [Cymbalta] 60 mg PO DAILY 08/05/15 [History] Docusate [Colace] 200 mg PO BID PRN 08/05/15 [History] Lactulose 10 gm PO DAILY PRN 08/05/15 [History] Aspirin 81 mg PO DAILY 03/18/16 [History] Metoprolol Tartrate [Lopressor] 50 mg PO BID 03/18/16 [History] Furosemide [Lasix] 40 mg PO DAILY 07/30/16 [History] Fluticasone Propionate Nasal [Flonase] 50 mcg NS DAILY PRN 10/23/16 [History] Loratadine [Allergy Relief] 10 mg PO DAILY 10/23/16 [History] Amlodipine Besylate 10 mg PO DAILY 12/04/16 [History] Famotidine [Pepcid] 20 mg PO BID 04/08/17 [History] Ferrous Sulfate 325 mg PO BIDWM #30 tablet 04/19/17 [Rx] Atorvastatin [Lipitor] 40 mg PO HS 06/21/17 [History] Clopidogrel [Plavix] 75 mg PO DAILY 06/21/17 [History] Lidocaine Patch [Lidoderm 5% patch] 1 each TP DAILY 06/21/17 [History] Baclofen [Lioresal] 10 mg PO TID 08/30/17 [History] Insulin NPH Human Isophane [Novolin N] 65 unit SQ BIDWM 08/30/17 [History] Insulin Regular, Human [Novolin R] 0 - 10 unit SQ TID 08/30/17 [History] Lisinopril [Zestril] 20 mg PO DAILY 03/15/18 [History] Tizanidine HCl 4 mg PO BID PRN 03/15/18 [History] Donepezil [Aricept] 10 mg PO HS tablet 04/16/18 [Rx] Clotrimazole/Betameth Dip CRM [Lotrisone CRM] 1 appl TP BID #1 tube 04/25/18 [Rx ] Guaifenesin [Mucinex] 600 mg PO BID 05/15/18 [History] Ipratropium/Albuterol Neb [Duoneb] 3 ml IH Q6HR 05/15/18 [History] Levothyroxine Sodium [Levo-T] 200 mcg PO QAM 05/15/18 [History] Oxybutynin Chloride [Ditropan Xl] 10 mg PO DAILY 05/15/18 [History] Gabapentin [Neurontin] 100 mg PO BID 4 Days #8 capsule 05/18/18 [Rx] HYDROcodone/Acet 10/325 mg [Cash 10-325 mg] 1 each PO Q8H PRN 4 Days #16 tablet 05/18/18 [Rx] Allergies/Adverse Reactions: 3 Allergy/AdvReac Type Severity Reaction Status Date / Time adhesive tape Allergy Hives Verified 12/26/17 17:43 pregabalin [From Lyrica] Allergy Swelling Verified 12/26/17 17:43 of Lip/Tongue/Throat Sulfa (Sulfonamide Allergy PER PT Verified 12/26/17 17:43 Antibiotics) UNKNOWN REACTION Date of admission: 05/16/18 20:34 Primary care physician: Chandan Fitzgerald MD - Constitutional Vitals: Temp Pulse Resp BP Pulse Ox 98.9 F 79 18 135/82 96 05/18/18 11:13 05/18/18 11:13 05/18/18 11:13 05/18/18 11:13 05/18/18 11:13 General appearance: Present: mild distress, no acute distress - Respiratory Respiratory exam: Present: CTAB. Absent: accessory muscle use, rales, rhonchi, wheezes - Cardiovascular Cardiovascular exam: Present: RRR, +S1, +S2. Absent: diastolic murmur, gallop, rubs, systolic murmur - Patient Status Disposition: Transfer SNF Condition: Fair - Discharge Instructions Instructions: Hydrocodone/Acetaminophen (By mouth), Gabapentin (By mouth), Community-acquired Pneumonia (DC) Follow Up With: Chandan Fitzgerald MD [Primary Care Provider] - 05/24/18 1:00 pm
[2018-05-18 14:55] VITALS: BP 144/76
== END 2018-05-18 15:30 | DRG 871 ==
LOC: EMEROO 13:09 → 2NENU 13:09 → SUATTDRO 15:10 → ICNU 15:50 → 2NNU 16:09 → ICNU 16:19 → 2NNU 17:12
PROVIDERS: ADMIT Student in an Organized Health Care Education/Training Program; ATTEND Hospitalist

== ENCOUNTER 2018-12-09 17:04 | Inpatient (IN) ==
--- NOTE | 2018-12-09 17:58 | Emergency Department Note ---
Disposition Clinical Impression: Cellulitis of right lower extremity without foot Disposition: Admitted As Inpatient Condition: Fair Forms: ED Satisfaction Letter Time of Disposition: 19:55 General Adult HPI - General Chief complaint: ED Extremity Injury, Lower Stated complaint: Right leg cellulitis Time Seen by Provider: 12/09/18 17:32 Source: patient Mode of arrival: ambulatory Limitations: no limitations Nursing Notes Reviewed: Yes Vital Signs Reviewed: Yes - History of Present Illness HPI Narrative: 73 yo male with PMHx of cellulitis, DM, HTN presents to the ED with concerns for recurrence of cellulitis. He states over the past 3 weeks his RLE has become more red, swollen and warm to touch. He also has shooting pains down his leg. He states the last time this happened he eventually had to be admitted for IV antibiotics to treat his cellulitis. He denies fevers at home, as well as chest pain, SOB, abdominal pain, N/V/D/C. It is becoming more difficult for him to walk secondary to pain. He has not tried any antibiotics since this onset of cellulitis. Pain Scale: 6 - Related Data Home Medications Medication Instructions Recorded Confirmed DULoxetine [Cymbalta] 60 mg PO DAILY 08/05/15 05/15/18 Docusate [Colace] 200 mg PO BID PRN 08/05/15 05/15/18 Lactulose 10 gm PO DAILY PRN 08/05/15 05/15/18 Aspirin 81 mg PO DAILY 03/18/16 05/15/18 Metoprolol Tartrate [Lopressor] 50 mg PO BID 03/18/16 05/15/18 Furosemide [Lasix] 40 mg PO DAILY 07/30/16 05/15/18 Fluticasone Propionate Nasal 50 mcg NS DAILY PRN 10/23/16 05/15/18 [Flonase] Loratadine [Allergy Relief] 10 mg PO DAILY 10/23/16 05/15/18 Amlodipine Besylate 10 mg PO DAILY 12/04/16 05/15/18 Famotidine [Pepcid] 20 mg PO BID 04/08/17 05/15/18 Atorvastatin [Lipitor] 40 mg PO HS 06/21/17 05/15/18 Clopidogrel [Plavix] 75 mg PO DAILY 06/21/17 05/15/18 Lidocaine Patch [Lidoderm 5% patch] 1 each TP DAILY 06/21/17 05/15/18 Baclofen [Lioresal] 10 mg PO TID 08/30/17 05/15/18 Insulin NPH Human Isophane 65 unit SQ BIDWM 08/30/17 05/15/18 [Novolin N] Insulin Regular, Human [Novolin R] 0 - 10 unit SQ TID 08/30/17 05/15/18 Lisinopril [Zestril] 20 mg PO DAILY 03/15/18 05/15/18 Tizanidine HCl 4 mg PO BID PRN 03/15/18 05/15/18 Guaifenesin [Mucinex] 600 mg PO BID 05/15/18 05/15/18 Ipratropium/Albuterol Neb [Duoneb] 3 ml IH Q6HR 05/15/18 05/15/18 Levothyroxine Sodium [Levo-T] 200 mcg PO QAM 05/15/18 05/15/18 Oxybutynin Chloride [Ditropan Xl] 10 mg PO DAILY 05/15/18 05/15/18 Previous Rx's Medication Instructions Recorded Ferrous Sulfate 325 mg PO BIDWM #30 tablet 04/19/17 Donepezil [Aricept] 10 mg PO HS tablet 04/16/18 Clotrimazole/Betameth Dip CRM 1 appl TP BID #1 tube 04/25/18 [Lotrisone CRM] Gabapentin [Neurontin] 100 mg PO BID 4 Days #8 capsule 05/18/18 HYDROcodone/Acet 10/325 mg [[place] 1 each PO Q8H PRN 4 Days #16 tablet 05/18/18 10-325 mg] Magnesium Oxide [Magnesium] 400 mg PO DAILY 2 Days #2 tablet 07/03/18 Oxycodone HCl/Acetaminophen 1 each PO Q6HR PRN 3 Days #12 07/03/18 [Percocet 5-325 mg Tablet] tablet cephALEXin [Keflex] 500 mg PO QID #28 capsule 10/20/18 Allergies Allergy/AdvReac Type Severity Reaction Status Date / Time adhesive tape Allergy Hives Verified 12/26/17 17:43 pregabalin [From Lyrica] Allergy Swelling Verified 12/26/17 17:43 of Lip/Tongue/Throat Sulfa (Sulfonamide Allergy PER PT Verified 12/26/17 17:43 Antibiotics) UNKNOWN REACTION All systems ED: reviewed and negative except as stated. Review of Systems: As Per HPI Constitutional: Denies: fever, chills, weakness Eyes: Denies: vision change Cardiovascular: Reports: edema. Denies: chest pain, palpitations, dyspnea on exertion Respiratory: Denies: cough, dyspnea, wheezes Gastrointestinal: Denies: abdominal pain, nausea, vomiting, diarrhea Genitourinary: Denies: dysuria, hematuria Musculoskeletal: Denies: back pain, neck pain Integumentary: Denies: rash Neurological: Denies: headache, weakness, numbness Past Medical History - Past Medical History Medical history: Reports: cancer, CVA, diabetes, hypertension, renal disease, thyroid disease, syncope Surgical history: Reports: orthopedic, other, thyroidectomy, other, appendectomy Psychiatric history: Reports: anxiety, depression - Social History Smoking Status: Never smoker Smokeless Tobacco Status: No Alcohol use: Reports: none Drug use: Reports: none Physical Exam - General Limitations: no limitations, language barrier General appearance: alert, in no apparent distress - Head Head exam: atraumatic, normocephalic - Eye Eye exam: Present: normal appearance, PERRL, EOMI - ENT ENT exam: normal exam, normal oropharynx - Neck Neck exam: Present: normal inspection - Chest Chest inspection: Present: normal inspection - Respiratory Respiratory exam: Present: normal lung sounds bilaterally. Absent: respiratory distress, wheezes, stridor - Cardiovascular Cardiovascular exam: Present: regular rate, normal rhythm - Abdominal Exam Abdominal exam: Present: soft, Non-Tender. Absent: distention, guarding, rebound, rigidity - Extremities Exam Extremities exam: Present: tenderness, pedal edema (3+ pitting edema of entire right leg), other (Chronic venous stasis changes with overlying erythema on the lateral aspect of the right leg. No area of drainage or palpable crepatance. No local area circumscribed of infection.) - Neurological Exam Neurological exam: Present: alert, oriented X3 - Psychiatric Psychiatric exam: Present: normal affect, normal mood - Skin Skin exam: Present: warm, dry, intact Course Vital Signs Temperature 98.8 F 12/09/18 17:15 Pulse Rate 101 12/09/18 17:15 Respiratory Rate 18 12/09/18 17:15 Blood Pressure 160/79 12/09/18 17:15 O2 Sat by Pulse Oximetry 94 12/09/18 17:15 Temperature 98.8 F 12/09/18 17:48 Pulse Rate 101 12/09/18 19:32 Respiratory Rate 16 12/09/18 19:32 Blood Pressure 154/72 12/09/18 19:32 O2 Sat by Pulse Oximetry 91 12/09/18 19:32 Oxygen Delivery Oxygen Delivery Room Air Medical Decision Making - MDM Narrative Medical decision making narrative: Due to thus patient's history of cellulitis requiring IV antibiotics, we will draw screening labs and give him IV vancomycin. 1953 - Spoke with Dr. Grijalva who requests blood cultures and the addition of IV Zosyn before admission. - Medical Records Medical records reviewed: Yes I reviewed the patient's medical records. - Lab Data Lab results reviewed: Yes I reviewed the patient's lab results. Result diagrams: 12/09/18 18:55 12/09/18 18:55 Lab Results 12/09/18 12/09/18 Range/Units 18:55 18:55 WBC 9.5 (4.3-11.1) K/mcL RBC 3.84 L (4.19-5.50) M/mcL Hgb 12.4 L (12.9-16.9) g/dL Hct 35.7 L (37.5-50.1) % MCV 93.0 (83.0-100.0) fL MCH 32.3 (28.0-33.3) pg MCHC 34.7 (31.6-35.5) g/dL RDW 14.6 H (11.5-14.5) % Plt Count 88 L (140-400) K/mcL MPV 12.4 (9.4-12.4) fL Immature Gran % 1.3 (0-4) % Seg Neutrophils % 65.2 % Lymphocytes % 18.6 % Monocytes % 8.4 % Eosinophils % 5.6 % Basophils % 0.9 % Neutrophils # 6.2 (1.6-8.9) K/mcL Lymphocytes # 1.8 (0.6-4.6) K/mcL Monocytes # 0.8 (0.0-1.3) K/mcL Eosinophils # 0.5 (0.0-0.6) K/mcL Basophils # 0.1 (0.0-0.2) K/mcL Immature Plt Fraction 8.8 H (1.1-6.1) % Sodium 137 (136-145) mEq/L Potassium 4.0 (3.5-5.1) mEq/L Chloride 99 (98-107) mEq/L Carbon Dioxide 27 (23-29) mEq/L BUN 23 (8-23) mg/dL Creatinine 1.18 (0.70-1.30) mg/dL Est GFR ( Amer) > 60 (> 60) Est GFR (Non-Af Amer) > 60 (> 60) BUN/Creatinine Ratio 19 (6-26) Glucose 373 H (70-105) mg/dL Calculated Osmolality 303 H (280-300) Calcium 9.7 (8.6-10.3) mg/dL
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
[2018-12-09 19:20] LABS: Basophils % 0.9 %; Eosinophils % 5.6 %; Red Cell Distribution Width 14.6 % (11.5-14.5)
[2018-12-09 19:22] LABS: Basophils # 0.1 K/mcL (0.0-0.2); Eosinophils # 0.5 K/mcL (0.0-0.6); Hematocrit 35.7 % (37.5-50.1); Hemoglobin 12.4 g/dL (12.9-16.9); Immature Granulocytes % 1.3 % (0-4); Immature Platelets 8.8 % (1.1-6.1); Lymphocytes # 1.8 K/mcL (0.6-4.6); Lymphocytes % 18.6 %; Mean Corpuscular HGB Conc 34.7 g/dL (31.6-35.5); Mean Corpuscular Hemoglobin 32.3 pg (28.0-33.3); Mean Platelet Volume 12.4 fL (9.4-12.4); Monocytes # 0.8 K/mcL (0.0-1.3); Monocytes % 8.4 %; Neutrophils # 6.2 K/mcL (1.6-8.9); Red Blood Count 3.84 M/mcL (4.19-5.50); Segmented Neutrophils % 65.2 %
[2018-12-09 19:26] LABS: Platelet Count 88 K/mcL (140-400)
[2018-12-09 19:31] LABS: BUN/Creatinine Ratio 19 (6-26); Blood Urea Nitrogen 23 mg/dL (8-23); Calcium 9.7 mg/dL (8.6-10.3); Carbon Dioxide 27 mEq/L (23-29); Chloride 99 mEq/L (98-107); Glucose 373 mg/dL (70-105); Osmolality,Calculated 303 (280-300); Sodium 137 mEq/L (136-145); eGFR For Non-African Americans > 60 (> 60)
[2018-12-09] MEDS ORDERED: Piperacillin/Tazobactam 3.375 GM in 0.9 % Sodium Chloride Mini Bag 100 ML IVPB ONE (19:50)
[2018-12-09] MEDS ORDERED: Ondansetron 4 MG/2 ML VIAL IVP PRN (21:08)
[2018-12-09] MEDS ORDERED: Naloxone 0.4 MG/ML INJ IVP PRN (21:08)
[2018-12-09] MEDS ORDERED: Dextrose Gel 15 GM/37.5 ML TUBE PO PRN ×2 (21:09)
[2018-12-09] MEDS ORDERED: *HR* Dextrose 50 % in Water (Syg) 50 ML SYRINGE IVP PRN (21:09)
[2018-12-09] MEDS ORDERED: D5% in Water 1,000 ML IVC PRN (21:09)
[2018-12-09] MEDS ORDERED: Acetaminophen 325 MG TABLET PO PRN (21:10)
[2018-12-09] MEDS ORDERED: *HR* HYDROcodone/Acet 5/325 mg TABLET PO PRN (21:10)
--- NOTE | 2018-12-09 21:25 | Internal Med History&Physical ---
<Rinku Selby - Last Filed: 12/09/18 23:40> Date of Encounter: 12/09/18 Time of Encounter: 08:30 Internal Medicine - H&P: HPI Chief complaint: R leg cellulitis Admitted From: Home Plans for Post Hospital Care: Home History of present illness: Mr. Borges is a 73 year old male with pmh significant for DM, HTN, CVA without residual deficits, and hypothyroidism 2/2 thyroidectomy from thyroid cancer. He was treated in April 29 for cellulitis R lower leg with IV abx for 3 days and outpatient cefalexin. Cellulitis resolved but started to slowly return few months ago and then progressively worsened over the past 3 weeks. He complains of R lower leg swelling, paresthesia type pain and erythema all of which is worsening. He additionally is having increased pain when bearing weight on R leg. He denies subjective fever/chills, diplopia, blurry vision, chest pain, dyspnea, abdominal pain, N/V, leg pain elsewhere. Within the ED, he was tachycardic and hypertensive on arrival without fever, leukocytosis or additional complaints. He was started on IV vanc and pip/tazo in the ED prior to admission. Past Med Surg Social Fam HX - Past Medical History Medical history: cancer, CVA, diabetes, hypertension, renal disease, thyroid disease, syncope Additional medical history: thyroid cancer Psychiatric history: anxiety, depression - Past Surgical History Surgical History: orthopedic, other, thyroidectomy, other, appendectomy Additional surgical history: left AKA. back surgery - Social History Smoking Status: Never smoker Smokeless Tobacco Status: No Alcohol use: none Drug use: none - Family History Mother Family Member Ethnicity: Non- Living Status: Hx Family Cardiac Disorders: Yes (CAD) Father Family Member Ethnicity: Non- Living Status: Hx Family Cardiac Disorders: Yes (HD) Internal Medicine - H&P: Meds DULoxetine [Cymbalta] 60 mg PO DAILY 08/05/15 [History] Docusate [Colace] 200 mg PO BID PRN 08/05/15 [History] Lactulose 10 gm PO DAILY PRN 08/05/15 [History] Aspirin 81 mg PO DAILY 03/18/16 [History] Metoprolol Tartrate [Lopressor] 50 mg PO BID 03/18/16 [History] Furosemide [Lasix] 40 mg PO DAILY 07/30/16 [History] Fluticasone Propionate Nasal [Flonase] 50 mcg NS DAILY PRN 10/23/16 [History] Loratadine [Allergy Relief] 10 mg PO DAILY 10/23/16 [History] Amlodipine Besylate 10 mg PO DAILY 12/04/16 [History] Famotidine [Pepcid] 20 mg PO BID 04/08/17 [History] Ferrous Sulfate 325 mg PO BIDWM #30 tablet 04/19/17 [Rx] Atorvastatin [Lipitor] 40 mg PO HS 06/21/17 [History] Clopidogrel [Plavix] 75 mg PO DAILY 06/21/17 [History] Lidocaine Patch [Lidoderm 5% patch] 1 each TP DAILY 06/21/17 [History] Baclofen [Lioresal] 10 mg PO TID 08/30/17 [History] Insulin NPH Human Isophane [Novolin N] 65 unit SQ BIDWM 08/30/17 [History] Insulin Regular, Human [Novolin R] 0 - 10 unit SQ TID 08/30/17 [History] Lisinopril [Zestril] 20 mg PO DAILY 03/15/18 [History] Tizanidine HCl 4 mg PO BID PRN 03/15/18 [History] Donepezil [Aricept] 10 mg PO HS tablet 04/16/18 [Rx] Clotrimazole/Betameth Dip CRM [Lotrisone CRM] 1 appl TP BID #1 tube 04/25/18 [Rx] Guaifenesin [Mucinex] 600 mg PO BID 05/15/18 [History] Ipratropium/Albuterol Neb [Duoneb] 3 ml IH Q6HR 05/15/18 [History] Levothyroxine Sodium [Levo-T] 200 mcg PO QAM 05/15/18 [History] Oxybutynin Chloride [Ditropan Xl] 10 mg PO DAILY 05/15/18 [History] Gabapentin [Neurontin] 100 mg PO BID 4 Days #8 capsule 05/18/18 [Rx] HYDROcodone/Acet 10/325 mg [[place] 10-325 mg] 1 each PO Q8H PRN 4 Days #16 tablet 05/18/18 [Rx] Magnesium Oxide [Magnesium] 400 mg PO DAILY 2 Days #2 tablet 08/22/18 [Rx] Oxycodone HCl/Acetaminophen [Percocet 5-325 mg Tablet] 1 each PO Q6HR PRN 3 Days #12 tablet 07/03/18 [Rx] cephALEXin [Keflex] 500 mg PO QID #28 capsule 10/20/18 [Rx] Allergy/AdvReac Type Severity Reaction Status Date / Time adhesive tape Allergy Hives Verified 12/26/17 17:43 pregabalin [From Lyrica] Allergy Swelling Verified 12/26/17 17:43 of Lip/Tongue/Throat Sulfa (Sulfonamide Allergy PER PT Verified 12/26/17 17:43 Antibiotics) UNKNOWN REACTION All Systems PM: A 10-system review of systems was performed and is negative for pertinent findings except as documented above in the HPI. - Constitutional Vitals: Temp Pulse Resp BP Pulse Ox 98.8 F 94 16 148/75 90 12/09/18 17:48 12/09/18 20:13 12/09/18 20:13 12/09/18 20:13 12/09/18 20:13 General appearance: Present: cooperative, A&O X 3, pleasant, no acute distress, answers questions appropriately Exam: - - Head Head exam: Present: atraumatic, normal inspection, normocephalic - Eye Eye exam: Present: normal appearance - ENT ENT exam: Present: mucous membranes dry - Neck Neck exam general surgery: Present: supple, trachea midline - Respiratory Respiratory exam: Present: CTAB. Absent: accessory muscle use, chest wall tenderness, decreased breath sounds, prolonged expiratory phase, rales, respiratory distress, rhonchi, stridor, wheezes, tachypnea - Cardiovascular Cardiovascular exam: Present: RRR, +S1, +S2. Absent: bradycardia, clicks, diastolic murmur, distant heart sounds, gallop, irregular rhythm, JVD, rubs, +S3, +S4, systolic murmur, tachycardia - GI/Abdominal GI/Abdominal exam: Present: soft. Absent: distended, firm, guarding, hepatomegaly, rebound, rigid, splenomegaly, tenderness - Extremities Exam Extremities exam: Present: normal capillary refill, pedal edema (2+), tenderness, warm, radial pulses palpable and symmetrical. Absent: calf tenderness, cyanotic, normal inspection (Prior L AKA, R lower leg with ~6cm band around lower leg that is well demarcated, intact, erythematous, tender to p alpation without crepitus, purulent drainage with additional area above band of same description on anterior mao. Also has chronic venous stasis changes on R anterior lower leg) - Neurological Exam Neurological exam: Present: alert, CN II-XII intact, no focal deficits. Absent: facial droop, speech deficit - Psychiatric Psychiatric exam: Present: normal affect, normal mood - Skin Skin exam: Present: dry, erythema, intact, warm. Absent: abrasion, cyanosis, diaphoretic, excoriation, normal color, pallor, petechiae, urticaria, vesicles Internal Med - H&P Results - Labs CBC & Chem 7: 12/09/18 18:55 12/09/18 18:55 Labs: Short CBC 12/09/18 Range/Units 18:55 WBC 9.5 (4.3-11.1) K/mcL Hgb 12.4 L (12.9-16.9) g/dL Hct 35.7 L (37.5-50.1) % Plt Count 88 L (140-400) K/mcL Neutrophils # 6.2 (1.6-8.9) K/mcL BMP 12/09/18 18:55 Sodium 137 Potassium 4.0 Chloride 99 Carbon Dioxide 27 BUN 23 Creatinine 1.18 Glucose 373 H Calcium 9.7 - Assessment and plan (1) Cellulitis Current Visit: No Status: Acute Assessment and plan: -R lower leg erythema, paresthesia pain, and swelling slowly increasing last 6 months and increased dramatically over last 3 weeks -Well demarcated, intact, erythematous, tender to palpation without crepitus or purulent drainage -Previously treated for cellulitis same area April 29 with IV and cefalexin which resolved symptoms for few months prior to returning -Cellulitis likely 2/2 chronic venous stasis -Afebrile, tachycardic, wbc 9.5 on arrival -BC x2 drawn and pending -Started on vanc and zosyn in ED and continued till BC return Qualifiers: Site of cellulitis: extremity Site of cellulitis of extremity: lower extremity Laterality: right Qualified Code(s): L03.115 - Cellulitis of right lower limb (2) DM (diabetes mellitus), type 2 Current Visit: No Status: Chronic Assessment and plan: -Hx of DM on home insulin -Glucose 373 on arrival -Will get A1C and start ssi Qualifiers: Diabetes mellitus termite control servicer insulin use: with termite control servicer use Diabetes mellitus complication status: with kidney complications Diabetes mellitus complication detail: with chronic kidney disease Chronic kidney disease stage: stage 3 (moderate) Qualified Code(s): E11.22 - Type 2 diabetes mellitus with diabetic chronic kidney disease; N18.3 - Chronic kidney disease, stage 3 (moderate); Z79.4 - emt intermediate (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 of insulin (3) Hypothyroidism Current Visit: No Status: Chronic Assessment and plan: -Hx of hypothyroidism 2/2 thyroidectomy for thyroid cancer -Will get TSH and continue home levothyroxine dose Qualifiers: Hypothyroidism type: postoperative Qualified Code(s): E89.0 - Postprocedural hypothyroidism (4) Thrombocytopenia Current Visit: No Status: Chronic Assessment and plan: -Platelets 88 on arrival which appears about baseline -Will monitor for decreases and bleeding (5) DVT prophylaxis Current Visit: No Status: Acute Assessment and plan: -SQ heparin (6) Hypertension Current Visit: No Status: Chronic Assessment and plan: -Hx of HTN -BP 160/79 on arrival -BP 154/79 most recently -Will restart home antihypertensives Qualifiers: Hypertension type: essential hypertension Qualified Code(s): I10 - Essential (primary) hypertension - Time Spent With Patient Total time spent is greater than 50% in coordination of care (as documented) at patient's floor/unit and/or counseling patient: <Isak Grijalva - Last Filed: 12/10/18 03:37> Date of Encounter: 12/10/18 Time of Encounter: 01:45 - Constitutional Constitutional: chills, fever(s), no night sweats - EENT Nose, mouth and throat: no sore throat - Cardiovascular Cardiovascular ROS IM: no chest pain, no dyspnea - Respiratory Respiratory: no cough, no chest congestion - Gastrointestinal Gastrointestinal: no abdominal pain, no diarrhea, no hematemesis, no hematoche luis, no melena, no vomiting - Genitourinary Genitourinary ROS male: no dysuria, no flank pain - Integumentary Integumentary IM: erythema (RLE), no jaundice - Psychiatric Psychiatric: no anxiety, no depression - Allergic/Immunologic Allergic/Immunologic: no GI upset with certain foods - Constitutional Vitals: Temp Pulse Resp BP Pulse Ox 98.6 F 80 16 151/77 93 12/10/18 03:03 12/10/18 03:03 12/10/18 03:03 12/10/18 03:03 12/10/18 03:03 General appearance: Present: A&O X 3, pleasant, no acute distress, answers questions appropriately - Head Head exam: Present: normal inspection - Eye Eye exam: Present: PERRL. Absent: scleral icterus - ENT ENT exam: Present: mucous membranes dry, normal exam - Neck Neck exam general surgery: Present: supple - Respiratory Respiratory exam: Present: CTAB. Absent: rales, rhonchi, wheezes - Cardiovascular Cardiovascular exam: Present: RRR, +S1, +S2 - GI/Abdominal GI/Abdominal exam: Present: soft. Absent: tenderness - Extremities Exam Extremities exam: Present: normal capillary refill Additional comments: red, warm, mildly tender area of cellulitis and venous stasis changes in RLE - Back Exam Back exam: Absent: CVA tenderness (L), CVA tenderness (R) - Neurological Exam Neurological exam: Present: alert, CN II-XII intact, no focal deficits Internal Med - H&P Results - Labs CBC & Chem 7: 12/09/18 18:55 12/09/18 18:55 Labs: Short CBC 12/09/18 Range/Units 18:55 WBC 9.5 (4.3-11.1) K/mcL Hgb 12.4 L (12.9-16.9) g/dL Hct 35.7 L (37.5-50.1) % Plt Count 88 L (140-400) K/mcL Neutrophils # 6.2 (1.6-8.9) K/mcL BMP 12/09/18 18:55 Sodium 137 Potassium 4.0 Chloride 99 Carbon Dioxide 27 BUN 23 Creatinine 1.18 Glucose 373 H Calcium 9.7 - Assessment and plan (1) Thrombocytopenia Current Visit: No Status: Chronic (2) Cellulitis Current Visit: No Status: Acute Qualifiers: Site of cellulitis: extremity Site of cellulitis of extremity: lower extremity Laterality: right Qualified Code(s): L03.115 - Cellulitis of right lower limb (3) DVT prophylaxis Current Visit: No Status: Acute (4) Hypothyroidism Current Visit: No Status: Chronic Qualifiers: Hypothyroidism type: postoperative Qualified Code(s): E89.0 - Postprocedural hypothyroidism (5) DM (diabetes mellitus), type 2 Current Visit: No Status: Chronic Qualifiers: Diabetes mellitus termite control servicer insulin use: with halfway use Diabetes mellitus complication status: with kidney complications Diabetes mellitus complication detail: with chronic kidney disease Chronic kidney disease stage: stage 3 (moderate) Qualified Code(s): E11.22 - Type 2 diabetes mellitus with diabetic chronic kidney disease; N18.3 - Chronic kidney disease, stage 3 (moderate); Z79.4 - emt intermediate (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 of insulin (6) Hypertension Current Visit: No Status: Chronic Qualifiers: Hypertension type: essential hypertension Qualified Code(s): I10 - Essential (primary) hypertension - Time Spent With Patient Total time spent is greater than 50% in coordination of care (as documented) at patient's floor/unit and/or counseling patient: - Attending Attestation I discussed the patient HABEMATOLEL, past medical history, review of systems, lab data, and exam findings with Dr. Selby. I then saw and examined patient independently as well. I also reviewed some recent testing where it was noted that he was positive for MRSA screen a few months ago. Patient is lying in bed comfortably and has no complaints. However, he does note that his leg is throbbing and sore and is identical to his prior episodes of cellulitis. On exam, his leg is warm, red, and tender. He denies any injury or trauma to his leg. He is neurovascularly intact and does not exhibit any signs of compartment syndrome or any kind of abscess on exam. However, if he fails to improve with conservative measures, imaging of his leg may be warranted. We will place him on MRSA precautions given his positive nasal screen for MRSA a few months ago. Other than my comments above and noted exam findings, I agree with Dr. Selby's assessment and plan.
[2018-12-09] MEDS: Insulin LISPRO 300 UNITS/3 ML VIAL SQ SCH (22:34)
[2018-12-09] MEDS: *HR* Heparin 5,000 UNIT/ML VIAL SQ SCH (22:34)
[2018-12-10 05:09] LABS: Basophils % 0.8 %; Mean Corpuscular HGB Conc 34.4 g/dL (31.6-35.5); Red Cell Distribution Width 14.3 % (11.5-14.5)
[2018-12-10 05:12] LABS: Basophils # 0.1 K/mcL (0.0-0.2); Eosinophils # 0.6 K/mcL (0.0-0.6); Eosinophils % 6.4 %; Hematocrit 34.3 % (37.5-50.1); Hemoglobin 11.8 g/dL (12.9-16.9); Immature Granulocytes % 1.5 % (0-4); Immature Platelets 8.3 % (1.1-6.1); Lymphocytes # 1.5 K/mcL (0.6-4.6); Lymphocytes % 16.9 %; Mean Platelet Volume 12.9 fL (9.4-12.4); Monocytes # 0.8 K/mcL (0.0-1.3); Monocytes % 8.7 %; Neutrophils # 5.7 K/mcL (1.6-8.9); Red Blood Count 3.69 M/mcL (4.19-5.50); Segmented Neutrophils % 65.7 %
[2018-12-10 05:16] LABS: Platelet Count 77 K/mcL (140-400); Prothrombin Time 11.4 Seconds (9.4-12.1)
[2018-12-10 05:30] LABS: BUN/Creatinine Ratio 17 (6-26); Blood Urea Nitrogen 20 mg/dL (8-23); Calcium 9.6 mg/dL (8.6-10.3); Carbon Dioxide 26 mEq/L (23-29); Chloride 101 mEq/L (98-107); Chol/HDL Ratio 5.7 (0-4.9); Cholesterol 132 mg/dL (< 200); Glucose 304 mg/dL (70-105); HDL Cholesterol 23 mg/dL (40-59); Magnesium 1.8 mg/dL (1.6-2.6); Osmolality,Calculated 296 (280-300); Phosphorous 3.2 mg/dL (2.7-4.5); Potassium 4.2 mEq/L (3.5-5.1); Sodium 136 mEq/L (136-145); Triglycerides 563 mg/dL (< 150); eGFR For Non-African Americans > 60 (> 60)
[2018-12-10] MEDS: *HR* Heparin 5,000 UNIT/ML VIAL SQ SCH ×3 (06:22→20:45)
[2018-12-10] MEDS: *HR* OxyCODONE Immed Rel 5 MG TABLET PO PRN (06:32)
[2018-12-10] MEDS: Piperacillin/Tazobactam 3.375 GM in 0.9 % Sodium Chloride Mini Bag 100 ML IVPB SCH ×2 (08:02→15:59)
[2018-12-10] MEDS: Insulin LISPRO 300 UNITS/3 ML VIAL SQ SCH ×4 (08:03→20:46)
--- NOTE | 2018-12-10 10:14 | Internal Med Progress Note ---
Hospitalist Progress Note - Encounter Date of Encounter: 12/10/18 Time of Encounter: 10:12 - Subjective Interval History: Patient resting, he complains of right shoulder, and the left amputation stump pain, requesting Lidoderm patch. - Exam Vitals: Temp Pulse Resp BP Pulse Ox 98.2 F 81 16 160/83 96 12/10/18 06:39 12/10/18 06:39 12/10/18 06:39 12/10/18 06:39 12/10/18 06:39 Exam: PHYSICAL EXAMINATION: GENERAL APPEARANCE: The patient is alert, oriented and in no acute distress. HEENT: Head is normocephalic. The sinuses are nontender. Pupils are equal and reactive. The nares are patent. Oropharynx clear without lesions. NECK: Supple without lymphadenopathy. HEART: Regular rate and rhythm. LUNGS: No crackles or wheezes are heard. ABDOMEN: Soft, nontender, nondistended with good bowel sounds heard. Inguinal area is normal. EXTREMITIES: right leg erythematous rash noted without drainage.. NEUROLOGICAL: Gross nonfocal. SKIN: Warm and dry without any rash. - Assessment and Plan (1) Thrombocytopenia Current Visit: No Status: Chronic Assessment and Plan: -Platelets 88 on arrival which appears about baseline - No signs of bleeding. - Monitoring. (2) Cellulitis Current Visit: No Status: Acute Assessment and Plan: 12/09 -R lower leg erythema, paresthesia pain, and swelling slowly increasing last 6 months and increased dramatically over last 3 weeks -Well demarcated, intact, erythematous, tender to palpation without crepitus or purulent drainage -Previously treated for cellulitis same area April 29 with IV and cefalexin which resolved symptoms for few months prior to returning -Cellulitis likely 2/2 chronic venous stasis -Afebrile, tachycardic, wbc 9.5 on arrival -BC x2 drawn and pending -Started on vanc and zosyn in ED and continued till BC return. 12/10 Pending blood cx. continue current abx, tailor based on cx results. (3) DVT prophylaxis Current Visit: No Status: Acute Assessment and Plan: -SQ heparin (4) Hypothyroidism Current Visit: No Status: Chronic Assessment and Plan: -Hx of hypothyroidism 2/2 thyroidectomy for thyroid cancer -Will get TSH and continue home levothyroxine dose. 12/10 TSH 9.4, asymtomatic, may adjust dose of synthroid if indicated (5) DM (diabetes mellitus), type 2 Current Visit: No Status: Chronic (6) Hypertension Current Visit: No Status: Chronic Assessment and Plan: -Hx of HTN -BP 160/79 on arrival -BP 154/79 most recently - Continue home antihypertensives - Time Spent with Patient Total time spent is greater than 50% in coordination of care (as documented) at patient's floor/unit and/or counseling patient: Greater than 35 minutes Plan of Care Discussed with: patient Internal Medicine: Result - Labs CBC & Chem 7: 12/10/18 04:37 12/10/18 04:37 Labs: Short CBC 12/09/18 12/10/18 Range/Units 18:55 04:37 WBC 9.5 8.7 (4.3-11.1) K/mcL Hgb 12.4 L 11.8 L (12.9-16.9) g/dL Hct 35.7 L 34.3 L (37.5-50.1) % Plt Count 88 L 77 L (140-400) K/mcL Neutrophils # 6.2 5.7 (1.6-8.9) K/mcL BMP 12/09/18 12/10/18 18:55 04:37 Sodium 137 136 Potassium 4.0 4.2 Chloride 99 101 Carbon Dioxide 27 26 BUN 23 20 Creatinine 1.18 1.15 Glucose 373 H 304 H Calcium 9.7 9.6 - ABG Interpretation ABG results: PT/INR, D-dimer PT 11.4 Seconds (9.4-12.1) 12/10/18 04:37 Consult Discharge Plan - Plan Referrals: Levy Cisneros DO [Partnered Physician] - 12/24/18 10:00 am Chandan Fitzgerald MD [Primary Care Provider] - 01/16/19 3:00 pm Dmitri Smith DO [Partnered Physician] - 12/18/18 3:00 pm (2) Cellulitis Qualifiers: Site of cellulitis: extremity Site of cellulitis of extremity: lower extremity Laterality: right Qualified Code(s): L03.115 - Cellulitis of right lower limb (4) Hypothyroidism Qualifiers: Hypothyroidism type: postoperative Qualified Code(s): E89.0 - Postprocedural hypothyroidism (5) DM (diabetes mellitus), type 2 Qualifiers: Diabetes mellitus usp insulin use: with usp use Diabetes mellitus complication status: with kidney complications Diabetes mellitus complication detail: with chronic kidney disease Chronic kidney disease stage: stage 3 (moderate) Qualified Code(s): E11.22 - Type 2 diabetes mellitus with diabetic chronic kidney disease; N18.3 - Chronic kidney disease, stage 3 (moderate); Z79.4 - alf (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
[2018-12-10 11:14] LABS: Estimated Average Glucose 189 mg/dl; Hemoglobin A1C 8.2 %
[2018-12-10] MEDS ORDERED: Fluticasone Propionate Nasal 50 MCG/SPRAY BOTTLE NS PRN (16:15)
[2018-12-10] MEDS: Insulin NPH 100 UNIT/ML (x5UNIT) SQ SCH (17:30)
[2018-12-10] MEDS: Gabapentin 300 MG CAPSULE PO SCH (20:45)
[2018-12-10] MEDS: Baclofen 10 MG TABLET PO SCH (20:45)
[2018-12-10] MEDS ORDERED: Gabapentin 100 MG CAPSULE PO SCH (21:00)
[2018-12-11] MEDS: Piperacillin/Tazobactam 3.375 GM in 0.9 % Sodium Chloride Mini Bag 100 ML IVPB SCH ×4 (00:07→23:54)
[2018-12-11 05:28] LABS: Hematocrit 35.3 % (37.5-50.1); Mean Corpuscular Hemoglobin 31.5 pg (28.0-33.3); Mean Corpuscular Volume 92.7 fL (83.0-100.0); Mean Platelet Volume 12.1 fL (9.4-12.4); Red Blood Count 3.81 M/mcL (4.19-5.50); Red Cell Distribution Width 14.3 % (11.5-14.5)
[2018-12-11 05:47] LABS: BUN/Creatinine Ratio 15 (6-26); Blood Urea Nitrogen 19 mg/dL (8-23); Calcium 9.8 mg/dL (8.6-10.3); Carbon Dioxide 24 mEq/L (23-29); Chloride 98 mEq/L (98-107); Glucose 378 mg/dL (70-105); Osmolality,Calculated 292 (280-300); Potassium 4.4 mEq/L (3.5-5.1); Sodium 132 mEq/L (136-145); eGFR For Non-African Americans 58 (> 60)
[2018-12-11] MEDS: *HR* Heparin 5,000 UNIT/ML VIAL SQ SCH ×3 (06:16→21:56)
[2018-12-11] MEDS: Insulin NPH 100 UNIT/ML (x5UNIT) SQ SCH ×2 (07:41→17:24)
[2018-12-11] MEDS: Insulin LISPRO 300 UNITS/3 ML VIAL SQ SCH ×3 (07:41→17:23)
[2018-12-11] MEDS: Aspirin 81 MG TAB.CHEW PO SCH (07:42)
[2018-12-11] MEDS: Baclofen 10 MG TABLET PO SCH ×3 (07:43→21:56)
[2018-12-11] MEDS: Gabapentin 300 MG CAPSULE PO SCH ×3 (07:43→21:56)
[2018-12-11] MEDS: Loratadine 10 MG TABLET PO SCH (07:43)
[2018-12-11] MEDS: amLODIPine 5 MG TABLET PO SCH (07:43)
[2018-12-11] MEDS ORDERED: Lisinopril 20 MG TABLET PO SCH (09:00)
[2018-12-11] MEDS ORDERED: Furosemide 40 MG TABLET PO SCH (09:00)
--- NOTE | 2018-12-11 09:52 | Internal Med Progress Note ---
Hospitalist Progress Note - Encounter Date of Encounter: 12/11/18 Time of Encounter: 09:52 - Subjective Interval History: Agent was seen and examined at bedside, currently does not have any complaints. He does voice concern about cellulitis nonhealing discussed treatment I am which patient verbalized understanding - Exam Vitals: Temp Pulse Resp BP Pulse Ox 98.3 F 67 15 130/67 97 12/11/18 06:46 12/11/18 06:46 12/11/18 06:46 12/11/18 06:46 12/11/18 06:46 Exam: PHYSICAL EXAMINATION: GENERAL APPEARANCE: The patient is alert, oriented and in no acute distress. HEENT: Head is normocephalic. The sinuses are nontender. Pupils are equal and reactive. The nares are patent. Oropharynx clear without lesions. NECK: Supple without lymphadenopathy. HEART: Regular rate and rhythm. LUNGS: No crackles or wheezes are heard. ABDOMEN: Soft, nontender, nondistended with good bowel sounds heard. Inguinal area is normal. EXTREMITIES: right leg erythematous rash noted without drainage. No swelling or tenderness pulses present in right leg NEUROLOGICAL: Gross nonfocal. SKIN: Warm and dry without any rash. - Assessment and Plan (1) Cellulitis Current Visit: No Status: Acute Assessment and Plan: 12/09 -R lower leg erythema, paresthesia pain, and swelling slowly increasing last 6 months and increased dramatically over last 3 weeks -Well demarcated, intact, erythematous, tender to palpation without crepitus or purulent drainage -Previously treated for cellulitis same area April 29 with IV and cefalexin which resolved symptoms for few months prior to returning -Cellulitis likely 2/2 chronic venous stasis -Afebrile, tachycardic, wbc 9.5 on arrival -BC x2 drawn and pending -Started on vanc and zosyn in ED and continued till BC return. 12/10 Pending blood cx. continue current abx, tailor based on cx results. 12/11 No swelling noted to right extremity slight erythremia patient states it feels better. Blood cultures are pending we will continue with vancomycin and Zosyn until cultures are resulted (2) Thrombocytopenia Current Visit: No Status: Chronic Assessment and Plan: -Platelets 88 on arrival which appears about baseline - No signs of bleeding. - Monitoring. 12/11/2018 Appears to be stable at this time we will continue to monitor No signs of bleeding at this time (3) DVT prophylaxis Current Visit: No Status: Acute Assessment and Plan: -SQ heparin (4) Hypothyroidism Current Visit: No Status: Chronic Assessment and Plan: -Hx of hypothyroidism 2/2 thyroidectomy for thyroid cancer -Will get TSH and continue home levothyroxine dose. 12/10 TSH 9.4, asymtomatic, may adjust dose of synthroid if indicated 12/11 Continue with Synthroid (5) DM (diabetes mellitus), type 2 Current Visit: No Status: Chronic Assessment and Plan: -Hx of DM on home insulin -Glucose 373 on arrival -Will get A1C and start ssi 12/11 A1c is 8.2-glucose has been elevated at 400 Free sign scale to medium continue with basal a 65 units twice a day (6) Hypertension Current Visit: No Status: Chronic Assessment and Plan: -Hx of HTN -BP 160/79 on arrival -BP 154/79 most recently - Continue home antihypertensives 12/11 Currently appears to be stable we will continue to monitor continue with home medications - Time Spent with Patient Total time spent is greater than 50% in coordination of care (as documented) at patient's floor/unit and/or counseling patient: Internal Medicine: Result - Labs CBC & Chem 7: 12/11/18 05:17 12/11/18 05:17 Labs: Short CBC 12/11/18 Range/Units 05:17 WBC 9.6 (4.3-11.1) K/mcL Hgb 12.0 L (12.9-16.9) g/dL Hct 35.3 L (37.5-50.1) % Plt Count 82 L (140-400) K/mcL BMP 12/11/18 05:17 Sodium 132 L Potassium 4.4 Chloride 98 Carbon Dioxide 24 BUN 19 Creatinine 1.23 Glucose 378 H Calcium 9.8 - ABG Interpretation ABG results: PT/INR, D-dimer PT 11.4 Seconds (9.4-12.1) 12/10/18 04:37 Consult Discharge Plan - Plan Referrals: Levy Cisneros DO [Partnered Physician] - 12/24/18 10:00 am Chandan Fitzgerald MD [Primary Care Provider] - 01/16/19 3:00 pm Dmitri Smith DO [Partnered Physician] - 12/18/18 3:00 pm (1) Cellulitis Qualifiers: Site of cellulitis: extremity Site of cellulitis of extremity: lower extrem ity Laterality: right Qualified Code(s): L03.115 - Cellulitis of right lower limb (4) Hypothyroidism Qualifiers: Hypothyroidism type: postoperative Qualified Code(s): E89.0 - Postprocedural hypothyroidism (5) DM (diabetes mellitus), type 2 Qualifiers: Diabetes mellitus detention insulin use: with detention use Diabetes mellitus complication status: with kidney complications Diabetes mellitus complication detail: with chronic kidney disease Chronic kidney disease stage: stage 3 (moderate) Qualified Code(s): E11.22 - Type 2 diabetes mellitus with diabetic chronic kidney disease; N18.3 - Chronic kidney disease, stage 3 (moderate); Z79.4 - penitentiary (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
--- NOTE | 2018-12-11 15:49 | Electrocardiograph Report ---
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
[2018-12-11] MEDS ORDERED: Insulin LISPRO 300 UNITS/3 ML VIAL SQ SCH (15:57)
[2018-12-11] MEDS ORDERED: Ipratropium/Albuterol Neb 3 ML IH PRN (16:51)
[2018-12-12 05:25] LABS: Immature Granulocytes % 1.9 % (0-4)
[2018-12-12 05:27] LABS: Basophils # 0.1 K/mcL (0.0-0.2); Basophils % 1.2 %; Eosinophils # 0.9 K/mcL (0.0-0.6); Eosinophils % 9.2 %; Hematocrit 32.3 % (37.5-50.1); Hemoglobin 11.1 g/dL (12.9-16.9); Immature Platelets 10.1 % (1.1-6.1); Lymphocytes # 1.7 K/mcL (0.6-4.6); Lymphocytes % 17.5 %; Mean Corpuscular HGB Conc 34.4 g/dL (31.6-35.5); Mean Corpuscular Hemoglobin 31.6 pg (28.0-33.3); Mean Platelet Volume 12.4 fL (9.4-12.4); Monocytes # 0.9 K/mcL (0.0-1.3); Monocytes % 9.1 %; Neutrophils # 5.8 K/mcL (1.6-8.9); Red Blood Count 3.51 M/mcL (4.19-5.50); Red Cell Distribution Width 14.5 % (11.5-14.5); Segmented Neutrophils % 61.1 %
[2018-12-12 05:42] LABS: Platelet Count 82 K/mcL (140-400)
[2018-12-12 05:44] LABS: Calcium 9.5 mg/dL (8.6-10.3); Potassium 4.1 mEq/L (3.5-5.1)
[2018-12-12] MEDS: *HR* Heparin 5,000 UNIT/ML VIAL SQ SCH ×3 (05:48→21:54)
[2018-12-12] MEDS ORDERED: 0.9 % Sodium Chloride 1,000 ML ONE (08:07)
[2018-12-12] MEDS: Insulin LISPRO 300 UNITS/3 ML VIAL SQ SCH ×4 (08:09→22:26)
[2018-12-12] MEDS: Insulin NPH 100 UNIT/ML (x5UNIT) SQ SCH ×3 (08:10→17:08)
[2018-12-12] MEDS: amLODIPine 5 MG TABLET PO SCH (08:11)
[2018-12-12] MEDS: Loratadine 10 MG TABLET PO SCH (08:11)
[2018-12-12] MEDS: Aspirin 81 MG TAB.CHEW PO SCH (08:11)
[2018-12-12] MEDS: Gabapentin 300 MG CAPSULE PO SCH ×2 (08:11→17:01)
[2018-12-12] MEDS: Baclofen 10 MG TABLET PO SCH ×2 (08:12→17:01)
[2018-12-12] MEDS: Piperacillin/Tazobactam 3.375 GM in 0.9 % Sodium Chloride Mini Bag 100 ML IVPB SCH ×2 (08:12→21:41)
[2018-12-12] MEDS ORDERED: 0.9 % Sodium Chloride 1,000 ML IVC SCH (08:15)
[2018-12-12 15:58] LABS: Calcium 9.1 mg/dL (8.6-10.3); Potassium 4.5 mEq/L (3.5-5.1)
--- NOTE | 2018-12-12 16:45 | Internal Med Progress Note ---
Hospitalist Progress Note - Encounter Date of Encounter: 12/12/18 Time of Encounter: 09:00 - Subjective Interval History: Agent was seen and examined at bedside, currently does not have any complaints. Currently noted the patient's creatinine has elevated. Discussed results with the patient verbalized understanding. Encouraged patient to drink fluid. Reviewed treatment plan with patient who verbalized understanding. - Exam Vitals: Temp Pulse Resp BP Pulse Ox 98.4 F 58 15 79/41 90 12/12/18 15:30 12/12/18 15:30 12/12/18 15:30 12/12/18 15:30 12/12/18 15:30 Exam: PHYSICAL EXAMINATION: GENERAL APPEARANCE: The patient is alert, oriented and in no acute distress. HEENT: Head is normocephalic. The sinuses are nontender. Pupils are equal and reactive. The nares are patent. Oropharynx clear without lesions. NECK: Supple without lymphadenopathy. HEART: Regular rate and rhythm. LUNGS: No crackles or wheezes are heard. ABDOMEN: Soft, nontender, nondistended with good bowel sounds heard. Inguinal area is normal. EXTREMITIES: right leg erythematous rash noted without drainage. No swelling or tenderness pulses present in right leg NEUROLOGICAL: Gross nonfocal. SKIN: Warm and dry without any rash. - Assessment and Plan (1) Cellulitis Current Visit: No Status: Acute Assessment and Plan: 12/09 -R lower leg erythema, paresthesia pain, and swelling slowly increasing last 6 months and increased dramatically over last 3 weeks -Well demarcated, intact, erythematous, tender to palpation without crepitus or purulent drainage -Previously treated for cellulitis same area April 29 with IV and cefalexin which resolved symptoms for few months prior to returning -Cellulitis likely 2/2 chronic venous stasis -Afebrile, tachycardic, wbc 9.5 on arrival -BC x2 drawn and pending -Started on vanc and zosyn in ED and continued till BC return. 12/10 Pending blood cx. continue current abx, tailor based on cx results. 12/11 No swelling noted to right extremity slight erythremia patient states it feels better. Blood cultures are pending we will continue with vancomycin and Zosyn until cultures are resulted 12/12 Swelling has improved to slightly erythremia blood cultures continue this pending we will check vancomycin level today he does have obvious creatinine we may go ahead and switch him to oral antibiotics (2) Thrombocytopenia Current Visit: No Status: Chronic Assessment and Plan: -Platelets 88 on arrival which appears about baseline - No signs of bleeding. - Monitoring. 12/11/2018 Appears to be stable at this time we will continue to monitor No signs of bleeding at this time (3) DVT prophylaxis Current Visit: No Status: Acute Assessment and Plan: -SQ heparin (4) Hypothyroidism Current Visit: No Status: Chronic Assessment and Plan: -Hx of hypothyroidism 2/2 thyroidectomy for thyroid cancer -Will get TSH and continue home levothyroxine dose. 12/10 TSH 9.4, asymtomatic, may adjust dose of synthroid if indicated 12/11 Continue with Synthroid (5) DM (diabetes mellitus), type 2 Current Visit: No Status: Chronic (6) Hypertension Current Visit: No Status: Chronic Assessment and Plan: -Hx of HTN -BP 160/79 on arrival -BP 154/79 most recently - Continue home antihypertensives 12/11 Currently appears to be stable we will continue to monitor continue with home me dications 12/12 Continue home medications (7) THOMAS (acute kidney injury) Current Visit: No Status: Acute Assessment and Plan: 1 patient had a sudden increase in creatinine up to 1.39 today he is on vancomy [place] as well as receiving diuretics and poor oral intake- We will hold diuretics for now gentle hydration We will check vancomycin levels-pharmacy to dose renal function. May need to change antibiotics if no improvement Monitor creatinine - Time Spent with Patient Total time spent is greater than 50% in coordination of care (as documented) at patient's floor/unit and/or counseling patient: Internal Medicine: Result - Labs CBC & Chem 7: 12/12/18 04:46 12/12/18 15:16 Labs: Short CBC 12/12/18 Range/Units 04:46 WBC 9.5 (4.3-11.1) K/mcL Hgb 11.1 L (12.9-16.9) g/dL Hct 32.3 L (37.5-50.1) % Plt Count 82 L (140-400) K/mcL Neutrophils # 5.8 (1.6-8.9) K/mcL BMP 12/12/18 12/12/18 04:46 15:16 Sodium 135 L 132 L Potassium 4.1 4.5 Chloride 101 100 Carbon Dioxide 24 24 BUN 25 H 28 H Creatinine 1.49 H 1.72 H Glucose 250 H 434 H Calcium 9.5 9.1 - ABG Interpretation ABG results: PT/INR, D-dimer PT 11.4 Seconds (9.4-12.1) 12/10/18 04:37 Consult Discharge Plan - Plan Referrals: Levy Cisneros DO [Partnered Physician] - 12/24/18 10:00 am Chandan Fitzgerald MD [Primary Care Provider] - 01/16/19 3:00 pm Dmitri Smith DO [Partnered Physician] - 12/18/18 3:00 pm (1) Cellulitis Qualifiers: Site of cellulitis: extremity Site of cellulitis of extremity: lower ext remity Laterality: right Qualified Code(s): L03.115 - Cellulitis of right lower limb (4) Hypothyroidism Qualifiers: Hypothyroidism type: postoperative Qualified Code(s): E89.0 - Postprocedural hypothyroidism (5) DM (diabetes mellitus), type 2 Qualifiers: 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
--- NOTE | 2018-12-12 16:58 | Event Note ---
Date of Encounter: 12/12/18 Time of Encounter: 16:57 Noted that patient is very groggy and difficult to arouse blood pressure has decreased. Repeat chemistry does show elevation in creatinine. Suspect worsening kidney function patient's receiving baclofen as well as Neurontin. We will hold these medications but I think her sedating the patient as well as we will hold Cozaar and metoprolol for now. Continue with IV fluids and monitoring creatinine. Consult nephrology as needed. I will stop vancomycin.
[2018-12-12] MEDS: 0.9 % Sodium Chloride 1,000 ML IVC SCH (21:53)
[2018-12-13] MEDS: *HR* Heparin 5,000 UNIT/ML VIAL SQ SCH ×3 (05:37→21:25)
[2018-12-13 05:43] LABS: Red Cell Distribution Width 14.3 % (11.5-14.5)
[2018-12-13 05:45] LABS: Basophils # 0.1 K/mcL (0.0-0.2); Eosinophils # 0.8 K/mcL (0.0-0.6); Eosinophils % 9.8 %; Hematocrit 33.4 % (37.5-50.1); Hemoglobin 11.3 g/dL (12.9-16.9); Immature Granulocytes % 2.4 % (0-4); Lymphocytes # 1.6 K/mcL (0.6-4.6); Lymphocytes % 19.4 %; Mean Corpuscular HGB Conc 33.8 g/dL (31.6-35.5); Mean Corpuscular Hemoglobin 31.7 pg (28.0-33.3); Mean Corpuscular Volume 93.6 fL (83.0-100.0); Mean Platelet Volume 12.5 fL (9.4-12.4); Monocytes # 0.6 K/mcL (0.0-1.3); Monocytes % 7.7 %; Neutrophils # 4.8 K/mcL (1.6-8.9); Red Blood Count 3.57 M/mcL (4.19-5.50); Segmented Neutrophils % 59.7 %
[2018-12-13 05:58] LABS: BUN/Creatinine Ratio 18 (6-26); Blood Urea Nitrogen 25 mg/dL (8-23); Calcium 9.3 mg/dL (8.6-10.3); Carbon Dioxide 25 mEq/L (23-29); Chloride 102 mEq/L (98-107); Glucose 295 mg/dL (70-105); Osmolality,Calculated 297 (280-300); Potassium 4.2 mEq/L (3.5-5.1); Sodium 136 mEq/L (136-145); eGFR For Non-African Americans 52 (> 60)
[2018-12-13 06:01] LABS: Platelet Count 68 K/mcL (140-400)
[2018-12-13 06:02] LABS: Platelet Estimate Marked Decrease (Normal)
[2018-12-13] MEDS: amLODIPine 5 MG TABLET PO SCH (08:32)
[2018-12-13] MEDS: Aspirin 81 MG TAB.CHEW PO SCH (08:33)
[2018-12-13] MEDS: Insulin NPH 100 UNIT/ML (x5UNIT) SQ SCH (08:33)
[2018-12-13] MEDS: Loratadine 10 MG TABLET PO SCH (08:33)
[2018-12-13] MEDS: Insulin LISPRO 300 UNITS/3 ML VIAL SQ SCH ×6 (08:34→21:25)
[2018-12-13] MEDS: 0.9 % Sodium Chloride 1,000 ML IVC SCH ×2 (08:37→21:07)
--- NOTE | 2018-12-13 11:17 | Internal Med Progress Note ---
Hospitalist Progress Note - Encounter Date of Encounter: 12/13/18 Time of Encounter: 09:00 - Subjective Interval History: Agent was seen and examined at bedside, he is sitting up eating breakfast alert and appropriate. Denies any chest pain or shortness of breath. I did review treatment plan with the patient who verbalized understanding encourage patient to get out of bed - Exam Vitals: Temp Pulse Resp BP Pulse Ox 98.1 F 76 15 147/67 93 12/13/18 07:51 12/13/18 07:51 12/13/18 07:51 12/13/18 07:51 12/13/18 07:51 Exam: PHYSICAL EXAMINATION: GENERAL APPEARANCE: The patient is alert, oriented and in no acute distress. HEENT: Head is normocephalic. The sinuses are nontender. Pupils are equal and reactive. The nares are patent. Oropharynx clear without lesions. NECK: Supple without lymphadenopathy. HEART: Regular rate and rhythm. LUNGS: No crackles or wheezes are heard. ABDOMEN: Soft, nontender, nondistended with good bowel sounds heard. Inguinal area is normal. EXTREMITIES: right leg slight erythematous rash noted without drainage. No swelling or tenderness pulses present in right leg NEUROLOGICAL: Gross nonfocal. SKIN: Warm and dry without any rash. - Assessment and Plan (1) Cellulitis Current Visit: No Status: Acute Assessment and Plan: 12/09 -R lower leg erythema, paresthesia pain, and swelling slowly increasing last 6 months and increased dramatically over last 3 weeks -Well demarcated, intact, erythematous, tender to palpation without crepitus or purulent drainage -Previously treated for cellulitis same area April 29 with IV and cefalexin which resolved symptoms for few months prior to returning -Cellulitis likely 2/2 chronic venous stasis -Afebrile, tachycardic, wbc 9.5 on arrival -BC x2 drawn and pending -Started on vanc and zosyn in ED and continued till BC return. 12/10 Pending blood cx. continue current abx, tailor based on cx results. 12/11 No swelling noted to right extremity slight erythremia patient states it feels better. Blood cultures are pending we will continue with vancomycin and Zosyn until cultures are resulted 12/12 Swelling has improved to slightly erythremia blood cultures continue this pending we will check vancomycin level today he does have obvious creatinine we may go ahead and switch him to oral antibiotics 12/13 Swelling has improved just slight erythremia blood cultures are negative to date- place on doxycycline stop vancomycin and Zosyn (2) Thrombocytopenia Current Visit: No Status: Chronic Assessment and Plan: -Platelets 88 on arrival which appears about baseline - No signs of bleeding. - Monitoring. 12/11/2018 Appears to be stable at this time we will continue to monitor No signs of bleeding at this time 12/13 Signs or symptoms of bleeding at this time continue to monitor (3) DVT prophylaxis Current Visit: No Status: Acute Assessment and Plan: -SQ heparin (4) Hypothyroidism Current Visit: No Status: Chronic Assessment and Plan: -Hx of hypothyroidism 12/14 thyroidectomy for thyroid cancer -Will get TSH and continue home levothyroxine dose. 12/10 TSH 9.4, asymtomatic, may adjust dose of synthroid if indicated 12/11 Continue with Synthroid 12/13 Continue with Synthroid (5) DM (diabetes mellitus), type 2 Current Visit: No Status: Chronic Assessment and Plan: -Hx of DM on home insulin -Glucose 373 on arrival -Will get A1C and start ssi 12/11 A1c is 8.2-glucose has been elevated at 400 Free sign scale to medium continue with basal a 65 units twice a day 12/13 Continues to have elevated blood glucose 312 this a.m. we will continue with the high sliding scale insulin as well as adding 10 units nutritional as well as discontinuing NPH and placing on Levemir 40 mg twice a day (6) Hypertension Current Visit: No Status: Chronic Assessment and Plan: -Hx of HTN -BP 160/79 on arrival -BP 154/79 most recently - Continue home antihypertensives 12/11 Currently appears to be stable we will continue to monitor continue with home medications 12/12 Continue home medications (7) THOMAS (acute kidney injury) Current Visit: No Status: Acute Assessment and Plan: 1 patient had a sudden increase in creatinine up to 1.39 today he is on vancomycin as well as receiving diuretics and poor oral intake- We will hold diuretics for now gentle hydration We will check vancomycin levels-pharmacy to dose renal function. May need to change antibiotics if no improvement Monitor creatinine 12/13 This is improving continue with IV fluids and encourage oral intake Into the hold diuretics for now Renal dose antibiotics monitor creatinine and avoid nephrotoxins - Time Spent with Patient Total time spent is greater than 50% in coordination of care (as documented) at patient's floor/unit and/or counseling patient: Internal Medicine: Result - Labs CBC & Chem 7: 12/13/18 04:44 12/13/18 04:44 Labs: Short CBC 12/13/18 Range/Units 04:44 WBC 8.0 (4.3-11.1) K/mcL Hgb 11.3 L (12.9-16.9) g/dL Hct 33.4 L (37.5-50.1) % Plt Count 68 L (140-400) K/mcL Neutrophils # 4.8 (1.6-8.9) K/mcL BMP 12/12/18 12/13/18 15:16 04:44 Sodium 132 L 136 Potassium 4.5 4.2 Chloride 100 102 Carbon Dioxide 24 25 BUN 28 H 25 H Creatinine 1.72 H 1.36 H Glucose 434 H 295 H Calcium 9.1 9.3 - ABG Interpretation ABG results: PT/INR, D-dimer PT 11.4 Seconds (9.4-12.1) 12/10/18 04:37 Consult Discharge Plan - Plan Referrals: Levy Cisneros DO [Partnered Physician] - 12/24/18 10:00 am Chandan Fitzgearld MD [Primary Care Provider] - 01/16/19 3:00 pm Dmitri Smith DO [Partnered Physician] - 12/18/18 3:00 pm (1) Cellulitis Qualifiers: Site of cellulitis: extremity Site of cellulitis of extremity: lower extremity Laterality: right Qualified Code(s): L03.115 - Cellulitis of right lower limb (4) Hypothyroidism Qualifiers: Hypothyroidism type: postoperative Qualified Code(s): E89.0 - Postprocedural hypothyroidism (5) DM (diabetes mellitus), type 2 Qualifiers: Diabetes mellitus long-term insulin use: with 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
[2018-12-13] MEDS ORDERED: Aminoglycoside Consult 1 EACH MC ONE (14:07)
[2018-12-13] MEDS: Doxycycline 100 MG CAPSULE PO SCH (19:36)
[2018-12-13] MEDS: *HR* OxyCODONE Immed Rel 5 MG TABLET PO PRN (19:36)
[2018-12-13] MEDS: Insulin DETEMIR 100 UNIT/ML X5UNITS SQ SCH (21:25)
[2018-12-14] MEDS: *HR* Heparin 5,000 UNIT/ML VIAL SQ SCH (05:56)
[2018-12-14 06:26] LABS: Basophils # 0.1 K/mcL (0.0-0.2); Basophils % 0.9 %; Eosinophils # 0.7 K/mcL (0.0-0.6); Eosinophils % 9.5 %; Hematocrit 32.7 % (37.5-50.1); Hemoglobin 11.1 g/dL (12.9-16.9); Immature Granulocytes % 2.4 % (0-4); Lymphocytes # 1.2 K/mcL (0.6-4.6); Lymphocytes % 16.1 %; Mean Corpuscular HGB Conc 33.9 g/dL (31.6-35.5); Mean Corpuscular Hemoglobin 31.5 pg (28.0-33.3); Mean Corpuscular Volume 92.9 fL (83.0-100.0); Monocytes # 0.6 K/mcL (0.0-1.3); Neutrophils # 4.8 K/mcL (1.6-8.9); Red Blood Count 3.52 M/mcL (4.19-5.50); Red Cell Distribution Width 14.3 % (11.5-14.5); Segmented Neutrophils % 63.1 %
[2018-12-14 06:28] LABS: Platelet Count 77 K/mcL (140-400)
[2018-12-14 06:43] LABS: BUN/Creatinine Ratio 16 (6-26); Blood Urea Nitrogen 17 mg/dL (8-23); Calcium 9.4 mg/dL (8.6-10.3); Carbon Dioxide 25 mEq/L (23-29); Chloride 98 mEq/L (98-107); Glucose 271 mg/dL (70-105); Osmolality,Calculated 295 (280-300); Potassium 3.9 mEq/L (3.5-5.1); Sodium 137 mEq/L (136-145); eGFR For Non-African Americans > 60 (> 60)
[2018-12-14] MEDS: 0.9 % Sodium Chloride 1,000 ML IVC SCH ×2 (06:48→11:30)
[2018-12-14] MEDS: Doxycycline 100 MG CAPSULE PO SCH (08:24)
[2018-12-14] MEDS: Aspirin 81 MG TAB.CHEW PO SCH (08:24)
[2018-12-14] MEDS: Loratadine 10 MG TABLET PO SCH (08:24)
[2018-12-14] MEDS: amLODIPine 5 MG TABLET PO SCH (08:24)
[2018-12-14] MEDS: Insulin LISPRO 300 UNITS/3 ML VIAL SQ SCH ×4 (08:24→11:28)
[2018-12-14] MEDS: Insulin DETEMIR 100 UNIT/ML X5UNITS SQ SCH (08:41)
[2018-12-14 11:09] VITALS: BP 145/78
--- NOTE | 2018-12-14 11:31 | Discharge Summary ---
- NOTES TO OUTPATIENT PROVIDER Notes to Outpatient Provider: admitted with cellulitis R leg negative culture growth will cont doxycycline-Had THOMAS- monitor creatinine Orders not resulted at time of discharge: Pending orders 12/09/18 20:07 Culture,Blood [BC] Stat 12/14/18 19:00 Vancomycin,Trough Timed Date of Encounter: 12/14/18 Time of Encounter: 11:23 - Discharge Diagnosis (1) Cellulitis Priority: Primary Status: Acute Qualifiers: Site of cellulitis: extremity Site of cellulitis of extremity: lower extremity Laterality: right Qualified Code(s): L03.115 - Cellulitis of right lower limb (2) Thrombocytopenia Priority: Secondary Status: Chronic (3) Hypothyroidism Priority: Secondary Status: Chronic Qualifiers: Hypothyroidism type: postoperative Qualified Code(s): E89.0 - Postprocedural hypothyroidism (4) DM (diabetes mellitus), type 2 Priority: Secondary Status: Chronic Qualifiers: Diabetes mellitus buttermaker insulin use: with buttermaker use Diabetes mellitus complication status: with kidney complications Diabetes mellitus complication detail: with chronic kidney disease Chronic kidney disease stage: stage 3 (moderate) Qualified Code(s): E11.22 - Type 2 diabetes mellitus with diabetic chronic kidney disease; N18.3 - Chronic kidney disease, stage 3 (moderate); 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 Borges is a 73 year old male with medical history of diabetes hypertension CVA without residual effects hypothyroid secondary to thyroidectomy for thyroid cancer CKG stage III. Past history of cellulitis requiring 3 days outpatient cephalexin. Cellulitis did resolve and slowly returned to her a few months ago and progressively worsened over the past 3 weeks. Complaining of right lower leg swelling. Stage and erythremia. Denied any fevers or chills. On presentation the ER he was tachycardic hypertensive without any fever leukocytosis. Blood cultures were obtained and were negative to date. He was started on IV vancomycin and Zosyn. During admission patient did have an [place] I vancomycin was renally dosed Lasix was held as well as blood pressure medication. He also was lethargic baclofen was held as well as sedating medications. He became more alert and returned to baseline. He also had elevated blood glucose insulin was increased and patient's blood glucose did return back to baseline Patient was transitioned to oral doxycycline advised patient to follow-up with primary care provider verbalized understanding. Currently patient is hemodynamically stable and is ready for discharge. - Time Spent with Patient Total time spent providing and/or coordinating discharge services: - Discharge Medications Prescriptions: Doxycycline 100 mg PO BID #12 capsule Home Medications: DULoxetine [Cymbalta] 60 mg PO DAILY 08/05/15 [History] Aspirin 81 mg PO DAILY 03/18/16 [History] Metoprolol Tartrate [Lopressor] 50 mg PO BID 03/18/16 [History] Furosemide [Lasix] 40 mg PO DAILY 07/30/16 [History] Fluticasone Propionate Nasal [Flonase] 50 mcg NS DAILY PRN 10/23/16 [History] Loratadine [Allergy Relief] 10 mg PO DAILY 10/23/16 [History] Atorvastatin [Lipitor] 40 mg PO DAILY 06/21/17 [History] Clopidogrel [Plavix] 75 mg PO DAILY 06/21/17 [History] Lidocaine Patch [Lidoderm 5% patch] 1 - 3 patch TP DAILY 06/21/17 [History] Baclofen [Lioresal] 10 mg PO TID 08/30/17 [History] Insulin NPH Human Isophane [Novolin N] 70 unit SQ BID 08/30/17 [History] Insulin Regular, Human [Novolin R] 40 unit SQ TID 08/30/17 [History] Donepezil [Aricept] 10 mg PO HS tablet 04/16/18 [Rx] Ipratropium/Albuterol Neb [Duoneb] 3 ml IH Q6HR PRN 05/15/18 [History] Amlodipine Besylate 10 mg PO DAILY 12/10/18 [History] Cyclobenzaprine [Flexeril] 10 mg PO BID 12/10/18 [History] Docusate [Colace] 200 mg PO BID PRN 12/10/18 [History] Ferrous Sulfate 325 mg PO DAILY 12/10/18 [History] Gabapentin [Neurontin] 300 mg PO TID 12/10/18 [History] Hydromorphone (Pf) [Hydromorphone Intrathecal Pump] 1 each IT AD 12/10/18 [History] Levothyroxine Sodium [Euthyrox] 175 mcg PO DAILY 12/10/18 [History] NALOXONE 4 MG Nasal [place] [Narcan] 4 mg NS AD 12/10/18 [History] Doxycycline 100 mg PO BID #12 capsule 12/14/18 [Rx] Allergies/Adverse Reactions: Allergy/AdvReac Type Severity Reaction Status Date / Time adhesive tape Allergy Hives,RASH Verified 12/10/18 14:49 pregabalin [From Lyrica] Allergy Swelling Verified 12/10/18 14:49 of Lip/Tongue/Throat Sulfa (Sulfonamide Allergy PER PT Verified 12/10/18 14:49 Antibiotics) UNKNOWN REACTION Date of admission: 12/11/18 17:07 Primary care physician: Chandan Fitzgerald MD Discharging clinician: Laura Avendano Anticipated date of discharge: 12/14/18 - Constitutional Vitals: Temp Pulse Resp BP Pulse Ox 98.3 F 73 16 145/78 94 12/14/18 11:07 12/14/18 11:07 12/14/18 11:07 12/14/18 11:07 12/14/18 11:07 General appearance: Present: A&O X 3, pleasant, no acute distress, answers questions appropriately Exam: PHYSICAL EXAMINATION: GENERAL APPEARANCE: The patient is alert, oriented and in no acute distress. HEENT: Head is normocephalic. The sinuses are nontender. Pupils are equal and reactive. The nares are patent. Oropharynx clear without lesions. NECK: Supple without lymphadenopathy. HEART: Regular rate and rhythm. LUNGS: No crackles or wheezes are heard. ABDOMEN: Soft, nontender, nondistended with good bowel sounds heard. Inguinal area is normal. EXTREMITIES: right leg slight erythematous rash noted without drainage. No swelling or tenderness pulses present in right leg NEUROLOGICAL: Gross nonfocal. SKIN: Warm and dry without any rash. - Head Head exam: Present: atraumatic, normocephalic - Eye Eye exam: Present: PERRL, conjuntiva pink, sclera anicteric Pupils: Present: PERRL - Neck Neck exam general surgery: Present: supple, trachea midline. Absent: lymphadenopathy - Respiratory Respiratory exam: Present: CTAB. Absent: accessory muscle use, rales, rhonchi, wheezes - Cardiovascular Cardiovascular exam: Present: RRR, +S1, +S2. Absent: diastolic murmur, gallop, rubs, systolic murmur - GI/Abdominal GI/Abdominal exam: Present: normal bowel sounds, soft, no peritoneal signs. Absent: distended, tenderness - Extremities Exam Extremities exam: Present: warm, radial pulses palpable and symmetrical. Absent: calf tenderness, cyanotic, pedal edema - Expanded Lower Extremities Exam Lower Leg exam: Present: erythema (Erythremia has improved no swelling or tenderness noted) - Neurological Exam Neurological exam: Present: CN II-XII intact, oriented X3, no focal deficits. Absent: pronater drift, facial droop, speech deficit - Skin Skin exam: Present: dry, intact - Patient Status Disposition: Home, Self-Care Condition: Fair Functional capacity at discharge: uses cane/walker - Discharge Instructions Instructions: Cellulitis (DC) Follow Up With: Levy Cisneros DO [Partnered Physician] - 12/24/18 10:00 am Chandan Fitzgerald MD [Primary Care Provider] - 01/16/19 3:00 pm Dmitri Smith DO [Partnered Physician] - 12/18/18 3:00 pm - Diet and Activity Activity: increase activity as tolerated Diet: advance to your usual diet
== END 2018-12-14 14:08 | disposition home or self-care (01) | DRG 603 ==
LOC: EMEROOARM 17:04 → 3BNU 17:04
PROVIDERS: ADMIT Pediatrics; ATTEND Pediatrics

== ENCOUNTER 2019-01-14 07:23 | Inpatient (IN) ==
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
[2019-01-14 09:12] LABS: Basophils # 0.1 K/mcL (0.0-0.2); Basophils % 1.1 %; Eosinophils # 0.5 K/mcL (0.0-0.6); Eosinophils % 5.5 %; Hematocrit 36.6 % (37.5-50.1); Hemoglobin 12.4 g/dL (12.9-16.9); Immature Granulocytes % 1.5 % (0-4); Lymphocytes # 1.5 K/mcL (0.6-4.6); Lymphocytes % 15.4 %; Mean Corpuscular HGB Conc 33.9 g/dL (31.6-35.5); Mean Corpuscular Volume 91.5 fL (83.0-100.0); Mean Platelet Volume 12.1 fL (9.4-12.4); Monocytes # 0.6 K/mcL (0.0-1.3); Monocytes % 5.8 %; Neutrophils # 6.7 K/mcL (1.6-8.9); Red Cell Distribution Width 13.9 % (11.5-14.5); Segmented Neutrophils % 70.7 %
[2019-01-14 09:14] LABS: Platelet Count 98 K/mcL (140-400)
[2019-01-14 09:31] LABS: BUN/Creatinine Ratio 28 (6-26); Blood Urea Nitrogen 33 mg/dL (8-23); Calcium 9.8 mg/dL (8.6-10.3); Carbon Dioxide 27 mEq/L (23-29); Chloride 101 mEq/L (98-107); Glucose 293 mg/dL (70-105); Osmolality,Calculated 302 (280-300); Sodium 137 mEq/L (136-145); Troponin I 0.03 ng/mL (< 0.04); eGFR For Non-African Americans > 60 (> 60)
[2019-01-14] MEDS ORDERED: Vancomycin 1,750 MG in 0.9 % Sodium Chloride 250 ML IVPB ONE (10:08)
[2019-01-14] MEDS ORDERED: ceFAZolin 1,000 MG in Water for inj. (sterile) 20 ML 10 ML IVP STA (10:08)
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
[2019-01-14] MEDS ORDERED: *HR* Dextrose 50 % in Water (Syg) 50 ML SYRINGE IVP PRN (10:51)
[2019-01-14] MEDS ORDERED: D5% in Water 1,000 ML IVC PRN (10:51)
[2019-01-14] MEDS ORDERED: Dextrose Gel 15 GM/37.5 ML TUBE PO PRN ×2 (10:51)
[2019-01-14] MEDS ORDERED: Dextrose 4 GM Chewable Tablets PO PRN ×2 (10:51)
[2019-01-14] MEDS ORDERED: Ondansetron 4 MG/2 ML VIAL IVP PRN (10:53)
[2019-01-14] MEDS ORDERED: Naloxone 0.4 MG/ML INJ IVP PRN (10:53)
[2019-01-14] MEDS ORDERED: Acetaminophen 325 MG TABLET PO PRN (10:53)
[2019-01-14] MEDS: Insulin LISPRO 300 UNITS/3 ML VIAL SQ SCH ×3 (14:46→22:11)
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
[2019-01-14] MEDS ORDERED: *HR* Labetalol 20 MG/4 ML SYRINGE IVP PRN (15:33)
[2019-01-14] MEDS: DAPTOmycin 450 MG in 0.9 % Sodium Chloride 100 ML IVPB SCH (17:46)
[2019-01-14] MEDS: *HR* Heparin 5,000 UNIT/ML VIAL SQ SCH (17:46)
[2019-01-14] MEDS: traMADol 50 MG TABLET PO PRN (17:50)
[2019-01-14] MEDS ORDERED: ceFAZolin 1,000 MG in Water for inj. (sterile) 20 ML 10 ML IVP SCH (19:00)
[2019-01-14] MEDS: *HR* HYDROcodone/Acet 5/325 mg TABLET PO PRN (22:07)
[2019-01-15] MEDS: *HR* Heparin 5,000 UNIT/ML VIAL SQ SCH ×2 (05:20→17:28)
[2019-01-15 05:42] LABS: Basophils % 0.9 %; Red Cell Distribution Width 13.9 % (11.5-14.5)
[2019-01-15 05:44] LABS: Basophils # 0.1 K/mcL (0.0-0.2); Eosinophils # 0.6 K/mcL (0.0-0.6); Eosinophils % 7.4 %; Hematocrit 35.2 % (37.5-50.1); Hemoglobin 11.9 g/dL (12.9-16.9); Immature Granulocytes % 1.1 % (0-4); Immature Platelets 8.9 % (1.1-6.1); Lymphocytes # 1.6 K/mcL (0.6-4.6); Lymphocytes % 20.3 %; Mean Corpuscular HGB Conc 33.8 g/dL (31.6-35.5); Mean Corpuscular Hemoglobin 31.2 pg (28.0-33.3); Mean Corpuscular Volume 92.4 fL (83.0-100.0); Mean Platelet Volume 12.4 fL (9.4-12.4); Monocytes # 0.6 K/mcL (0.0-1.3); Monocytes % 7.4 %; Red Blood Count 3.81 M/mcL (4.19-5.50); Segmented Neutrophils % 62.9 %
[2019-01-15] MEDS: traMADol 50 MG TABLET PO PRN (05:45)
[2019-01-15 05:53] LABS: BUN/Creatinine Ratio 23 (6-26); Blood Urea Nitrogen 24 mg/dL (8-23); Calcium 9.3 mg/dL (8.6-10.3); Carbon Dioxide 26 mEq/L (23-29); Chloride 100 mEq/L (98-107); Glucose 233 mg/dL (70-105); Osmolality,Calculated 294 (280-300); Potassium 3.8 mEq/L (3.5-5.1); Sodium 136 mEq/L (136-145); eGFR For Non-African Americans > 60 (> 60)
[2019-01-15 06:02] LABS: Platelet Count 92 K/mcL (140-400)
[2019-01-15] MEDS: *HR* HYDROcodone/Acet 5/325 mg TABLET PO PRN (08:33)
[2019-01-15] MEDS: Insulin LISPRO 300 UNITS/3 ML VIAL SQ SCH ×4 (08:38→22:49)
--- NOTE | 2019-01-15 10:07 | Infectious Disease Progress No ---
Date of Encounter: 01/15/19 Time of Encounter: 09:40 - Assessment and Plan (1) Cellulitis Current Visit: No Status: Acute Location: RLE Cellulitis vs. chronic venous stasis. Clinically, the RLE changes are not impressive. More than likely I think that this is mostly venous stasis changes exacerbated by some mild swelling to the right lower extremity. Very low index of suspicion for cellulitis at this point. Causative organism: Unclear. Non-purulent. Etiology: Unclear. No open lesions/trauma or tinea pedis. No sepsis criteria. Blood cultures drawn 01/14/19 are no growth to date x 2 sets. Venous doppler study negative for DVT. Baseline CK level 119. Currently on cefepime and daptomycin. Recommendations: Await blood cultures. Consider compression stocking to the right lower extremity to assist with edema and venous return. Pain management per the primary team. Continue Daptomycin 4mg/kg IV daily since the patient developed THOMAS while he was on Vanc the last time. Continue Cefepime 2 grams IV Q12H. Duration of treatment depends on the clinical picture. Can likely switch to oral doxycycline and Keflex when ready for discharge. Monitor renal function and dose-adjust antibiotics. Qualifiers: Site of cellulitis: extremity Site of cellulitis of extremity: lower extremity Laterality: right Qualified Code(s): L03.115 - Cellulitis of right lower limb (2) Cirrhosis Current Visit: Yes Status: Chronic Unable to calculate MELD score since INR not checked. Qualifiers: Hepatic cirrhosis type: unspecified hepatic cirrhosis Ascites presence: without ascites Qualified Code(s): K74.60 - Unspecified cirrhosis of liver (3) Hypertension Current Visit: No Status: Chronic Qualifiers: Hypertension type: essential hypertension Qualified Code(s): I10 - Essential (primary) hypertension (4) Diabetes mellitus Current Visit: No Status: Chronic Recommend strict glucose control. Management per the primary team. Qualifiers: Diabetes mellitus type: type 2 Diabetes mellitus intermediate frame tender insulin use: without intermediate use Diabetes mellitus complication status: with kidney complications Diabetes mellitus complication detail: with chronic kidney disease Chronic kidney disease stage: stage 3 (moderate) Qualified Code(s): E11.22 - Type 2 diabetes mellitus with diabetic chronic kidney disease; N18.3 - Chronic kidney disease, stage 3 (moderate) (5) CKD (chronic kidney disease), stage III Current Visit: No Status: Chronic Monitor renal function and dose-adjust antibiotics. Avoid nephrotoxins as able. (6) H/O: CVA (cerebrovascular accident) Current Visit: No Status: Chronic (7) CAD (coronary artery disease) Current Visit: No Status: Chronic Qualifiers: Coronary Disease-Associated Artery/Lesion type: [place] artery [place] vs. transplanted heart: [place] heart Associated angina: without angina Qualified Code(s): I25.10 - Atherosclerotic heart disease of [place] coronary artery without angina pectoris (8) Obesity (BMI 30-39.9) Current Visit: No Status: Chronic (9) Thrombocytopenia Current Visit: No Status: Chronic Likely secondary to cirrhosis. - Subjective Interval history: Patient seen and examined. No acute events noted overnight. Patient complains of cramping pain to the right lower extremity. States he does not think it looks much better. Denies fevers, chills, rigors. Denies chest pain, shortness of breath, or cough. Denies nausea, vomiting, diarrhea, or constipation. Reports his last bowel movement was this morning. Denies abdominal pain or urinary complaints. Denies any oral thrush or new skin lesions. Infect Dis PN-Objective Data - Labs CBC & Chem 7: 01/16/19 08:33 01/16/19 08:33 Labs: Laboratory Results - last 24 hr 01/14/19 01/14/19 01/14/19 12:33 16:19 16:34 WBC RBC Hgb Hct MCV MCH MCHC RDW Plt Count MPV Immature Gran % Seg Neutrophils % Lymphocytes % Monocytes % Eosinophils % Basophils % Neutrophils # Lymphocytes # Monocytes # Eosinophils # Basophils # Immature Plt Fraction Sodium Potassium Chloride Carbon Dioxide BUN Creatinine Est GFR ( Amer) Est GFR (Non-Af Amer) BUN/Creatinine Ratio Glucose POC Glucose 267 H 381 H Calculated Osmolality Calcium Creatine Kinase 119 01/15/19 01/15/19 04:50 04:50 WBC 7.9 RBC 3.81 L Hgb 11.9 L Hct 35.2 L MCV 92.4 MCH 31.2 MCHC 33.8 RDW 13.9 Plt Count 92 L MPV 12.4 Immature Gran % 1.1 Seg Neutrophils % 62.9 Lymphocytes % 20.3 Monocytes % 7.4 Eosinophils % 7.4 Basophils % 0.9 Neutrophils # 5.0 Lymphocytes # 1.6 Monocytes # 0.6 Eosinophils # 0.6 Basophils # 0.1 Immature Plt Fraction 8.9 H Sodium 136 Potassium 3.8 Chloride 100 Carbon Dioxide 26 BUN 24 H Creatinine 1.06 Est GFR ( Amer) > 60 Est GFR (Non-Af Amer) > 60 BUN/Creatinine Ratio 23 Glucose 233 H POC Glucose Calculated Osmolality 294 Calcium 9.3 Creatine Kinase Cultures: Cultures 01/14/19 08:52 Blood Culture - Preliminary Peripheral Venipuncture Culture is incubating and being continuously monitored for growth. Final report to follow. 01/14/19 08:50 Blood Culture - Preliminary Peripheral Venipuncture Culture is incubating and being continuously monitored for growth. Final report to follow. Exam - Constitutional Vitals: Temp Pulse Resp BP Pulse Ox 97.9 F 73 16 151/57 97 01/15/19 08:28 01/15/19 08:28 01/15/19 08:28 01/15/19 08:28 01/15/19 08:28 General appearance: cooperative, no acute distress, obese - Head Head exam: Present: atraumatic, normal inspection, normocephalic - Eye Eye exam: Present: EOMI, normal appearance, PERRL Pupils: Present: normal accommodation - ENT ENT exam: Present: mucous membranes moist - Neck Neck exam: Present: normal inspection - Respiratory Respiratory exam: Present: CTAB. Absent: rales, respiratory distress, rhonchi, wheezes - Cardiovascular Cardiovascular exam: Present: RRR, +S1, +S2 - GI/Abdominal GI/Abdominal exam: Present: distended (Obese), normal bowel sounds, soft. Absent: tenderness - Extremities Exam Extremities exam: Present: pedal edema (Trace right lower extremity), tenderness (Right lower leg). Absent: joint swelling, normal inspection (Right lower extremity erythema improved. Trace swelling. Left AKA stump with chronic scarring and without acute abnormality.) - Neurological Exam Neurological exam: Present: alert, oriented X3, no focal deficits - Psychiatric Psychiatric exam: Present: normal affect, normal mood - Skin Skin exam: Present: dry, intact, normal color, warm Consult Discharge Plan - Plan Referrals: Chandan Fitzgerald MD [Primary Care Provider] - - Attending Attestation I have personally performed a face to face evaluation on this patient. I have reviewed and agree with the care plan. History and Exam by me shows: Assessment and plan: Cellulitis right lower extremity Liver cirrhosis Hypertension Diabetes mellitus type 2 Recommendations Currently patient is on daptomycin and cefepime. Continue current antibiotics see how he does clinically and hopefully we can de-escalate to oral antibiotics in 24-48 hours. Monitor labs for drug toxicity.
[2019-01-15] MEDS: Cefepime HCl 2,000 MG in 0.9 % Sodium Chloride Mini Bag 100 ML IVPB SCH ×2 (10:24→17:30)
[2019-01-15] MEDS ORDERED: Baclofen 10 MG TABLET PO SCH (15:00)
[2019-01-15] MEDS: DAPTOmycin 450 MG in 0.9 % Sodium Chloride 100 ML IVPB SCH (17:29)
[2019-01-15] MEDS: Insulin DETEMIR 100 UNIT/ML X5UNITS SQ SCH ×2 (17:29→22:48)
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
[2019-01-15] MEDS: Gabapentin 100 MG CAPSULE PO SCH (22:48)
[2019-01-16] MEDS ORDERED: Melatonin 3 MG TABLET PO PRN (01:54)
[2019-01-16] MEDS: Cefepime HCl 2,000 MG in 0.9 % Sodium Chloride Mini Bag 100 ML IVPB SCH (05:43)
[2019-01-16] MEDS: BUPIVACAINE IT SCH ×2 (07:50→08:53)
[2019-01-16] MEDS: BACLOFEN IT SCH ×2 (07:50→08:53)
[2019-01-16] MEDS: HYDROMORPHONE IT SCH ×2 (07:50→08:53)
[2019-01-16] MEDS: *HR* Heparin 5,000 UNIT/ML VIAL SQ SCH (08:52)
[2019-01-16] MEDS: Insulin LISPRO 300 UNITS/3 ML VIAL SQ SCH ×3 (08:53→17:27)
[2019-01-16] MEDS: Insulin DETEMIR 100 UNIT/ML X5UNITS SQ SCH (08:53)
[2019-01-16] MEDS: Gabapentin 100 MG CAPSULE PO SCH (08:53)
[2019-01-16 09:00] LABS: Red Cell Distribution Width 13.9 % (11.5-14.5)
[2019-01-16] MEDS ORDERED: Furosemide 40 MG TABLET PO SCH (09:00)
[2019-01-16] MEDS ORDERED: amLODIPine 5 MG TABLET PO SCH (09:00)
[2019-01-16 09:01] LABS: Basophils # 0.1 K/mcL (0.0-0.2); Eosinophils # 0.6 K/mcL (0.0-0.6); Eosinophils % 7.8 %; Hematocrit 36.6 % (37.5-50.1); Hemoglobin 12.4 g/dL (12.9-16.9); Immature Granulocytes % 1.1 % (0-4); Lymphocytes # 1.6 K/mcL (0.6-4.6); Lymphocytes % 20.8 %; Mean Corpuscular HGB Conc 33.9 g/dL (31.6-35.5); Mean Corpuscular Hemoglobin 31.5 pg (28.0-33.3); Mean Corpuscular Volume 92.9 fL (83.0-100.0); Mean Platelet Volume 12.3 fL (9.4-12.4); Monocytes # 0.6 K/mcL (0.0-1.3); Neutrophils # 4.8 K/mcL (1.6-8.9); Red Blood Count 3.94 M/mcL (4.19-5.50); Segmented Neutrophils % 61.3 %
[2019-01-16 09:03] LABS: Platelet Count 87 K/mcL (140-400)
[2019-01-16 09:15] LABS: BUN/Creatinine Ratio 18 (6-26); Blood Urea Nitrogen 19 mg/dL (8-23); Calcium 9.7 mg/dL (8.6-10.3); Carbon Dioxide 27 mEq/L (23-29); Chloride 101 mEq/L (98-107); Glucose 286 mg/dL (70-105); Osmolality,Calculated 299 (280-300); Potassium 4.4 mEq/L (3.5-5.1); Sodium 138 mEq/L (136-145); eGFR For Non-African Americans > 60 (> 60)
--- NOTE | 2019-01-16 10:15 | Infectious Disease Progress No ---
Date of Encounter: 01/16/19 Time of Encounter: 08:50 - Assessment and Plan (1) Cellulitis Status: Acute Location: RLE Cellulitis vs. chronic venous stasis. Clinically, the RLE changes are not impressive. More than likely I think that this is mostly venous stasis changes exacerbated by some mild swelling to the right lower extremity. Very low index of suspicion for cellulitis at this point. Symptoms improved with placement of compression hose. No sepsis criteria. Blood cultures drawn 01/14/19 are no growth to date x 2 sets. Venous doppler study negative for DVT. Baseline CK level 119. Currently on cefepime and daptomycin. Recommendations: Await blood cultures. Recommend compression stocking to the right lower extremity to assist with edema and venous return. Pain management per the primary team. Recommend strict glucose control per the primary team. Continue Daptomycin 4mg/kg IV daily since the patient developed THOMAS while he was on Vanc the last time. (day 3) Continue Cefepime 2 grams IV Q12H. (day 3) Duration of treatment depends on the clinical picture. Can likely switch to oral doxycycline 100mg BID and Keflex 500mg PO TID to complete a 7 day course when ready for discharge. Monitor renal function and dose-adjust antibiotics. Qualifiers: Site of cellulitis: extremity Site of cellulitis of extremity: lower extremity Laterality: right Qualified Code(s): L03.115 - Cellulitis of right lower limb (2) Cirrhosis Status: Chronic Unable to calculate MELD score since INR not checked. Qualifiers: Hepatic cirrhosis type: unspecified hepatic cirrhosis Ascites presence: without ascites Qualified Code(s): K74.60 - Unspecified cirrhosis of liver (3) Hypertension Status: Chronic Qualifiers: Hypertension type: essential hypertension Qualified Code(s): I10 - Essential (primary) hypertension (4) Diabetes mellitus Status: Chronic Recommend strict glucose control. Management per the primary team. Qualifiers: Diabetes mellitus type: type 2 Diabetes mellitus long term care pharmacist insulin use: without custodial use Diabetes mellitus complication status: with kidney complications Diabetes mellitus complication detail: with chronic kidney disease Chronic kidney disease stage: stage 3 (moderate) Qualified Code(s): E11.22 - Type 2 diabetes mellitus with diabetic chronic kidney disease; N18.3 - Chronic kidney disease, stage 3 (moderate) (5) CKD (chronic kidney disease), stage III Status: Chronic Monitor renal function and dose-adjust antibiotics. Avoid nephrotoxins as able. (6) H/O: CVA (cerebrovascular accident) Status: Chronic (7) CAD (coronary artery disease) Status: Chronic Qualifiers: Coronary Disease-Associated Artery/Lesion type: [place] artery [place] vs. 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 - Subjective Interval history: Patient seen and examined. No acute events noted overnight. Patient states pain in the RLE is better since having JEOVANY hose placed. Denies fevers, chills, rigors. Denies chest pain, shortness of breath, or cough. Denies nausea, vomiting, diarrhea, or constipation. Reports his last bowel movement was yesterday. Denies abdominal pain or urinary complaints. Denies any oral thrush or new skin lesions. Infect Dis PN-Objective Data - Labs CBC & Chem 7: 01/16/19 08:33 01/16/19 08:33 Labs: Laboratory Results - last 24 hr 01/15/19 01/16/19 01/16/19 12:09 08:33 08:33 WBC 7.9 RBC 3.94 L Hgb 12.4 L Hct 36.6 L MCV 92.9 MCH 31.5 MCHC 33.9 RDW 13.9 Plt Count 87 L MPV 12.3 Immature Gran % 1.1 Seg Neutrophils % 61.3 Lymphocytes % 20.8 Monocytes % 8.0 Eosinophils % 7.8 Basophils % 1.0 Neutrophils # 4.8 Lymphocytes # 1.6 Monocytes # 0.6 Eosinophils # 0.6 Basophils # 0.1 Immature Plt Fraction 9.0 H Sodium 138 Potassium 4.4 Chloride 101 Carbon Dioxide 27 BUN 19 Creatinine 1.06 Est GFR ( Amer) > 60 Est GFR (Non-Af Amer) > 60 BUN/Creatinine Ratio 18 Glucose 286 H POC Glucose 392 H Calculated Osmolality 299 Calcium 9.7 Cultures: Cultures 01/14/19 08:52 Blood Culture - Preliminary Peripheral Venipuncture Culture is incubating and being continuously monitored for growth. Final report to follow. 01/14/19 08:50 Blood Culture - Preliminary Peripheral Venipuncture Culture is incubating and being continuously monitored for growth. Final report to follow. Exam - Constitutional Vitals: Temp Pulse Resp BP Pulse Ox 98.3 F 60 15 157/93 94 01/16/19 07:40 01/16/19 07:40 01/16/19 07:40 01/16/19 07:40 01/16/19 07:40 General appearance: cooperative, no acute distress, obese - Head Head exam: Present: atraumatic, normal inspection, normocephalic - Eye Eye exam: Present: EOMI, normal appearance, PERRL Pupils: Present: normal accommodation - ENT ENT exam: Present: mucous membranes moist - Neck Neck exam: Present: normal inspection - Respiratory Respiratory exam: Present: CTAB. Absent: rales, respiratory distress, rhonchi, wheezes - Cardiovascular Cardiovascular exam: Present: RRR, +S1, +S2 - GI/Abdominal GI/Abdominal exam: Present: distended (obese), normal bowel sounds, soft. Absent: tenderness - Extremities Exam Extremities exam: Present: pedal edema (1+ RLE), tenderness (Right lower leg). Absent: joint swelling, normal inspection (RLE discoloration noted, but not particulary erythematous. No warmth noted. Tenderness noted on palpation and with removal/placement of JEOVANY hose. No open lesions noted.) - Neurological Exam Neurological exam: Present: alert, oriented X3, no focal deficits - Psychiatric Psychiatric exam: Present: normal affect, normal mood - Skin Skin exam: Present: dry, intact, normal color, warm Consult Discharge Plan - Plan Referrals: Chandan Fitzgerald MD [Primary Care Provider] - (Web request entered. Office will call with appointment.) Prescriptions: Cephalexin [Keflex] 500 mg PO TID 7 Days #21 capsule RX: Doxycycline 100 mg PO BID 7 Days #14 capsule RX: Gabapentin [Neurontin] 300 mg PO BID 30 Days #60 capsule - Attending Attestation I have personally performed a face to face evaluation on this patient. I have reviewed and agree with the care plan. History and Exam by me shows: Assessment and plan: Cellulitis right lower extremity Liver cirrhosis Hypertension Diabetes mellitus type 2 Recommendations Currently patient is on daptomycin and cefepime. Continue current antibiotics see how he does clinically and hopefully we can de-escalate to oral antibiotics in 24-48 hours. Monitor labs for drug toxicity.
[2019-01-16 14:01] VITALS: BP 143/79
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
== END 2019-01-16 18:17 | disposition home or self-care (01) | DRG 603 ==
LOC: EMEROOARM 07:23 → 3ANU 07:23
PROVIDERS: ADMIT Internal Medicine; ATTEND Internal Medicine

== ENCOUNTER 2019-03-27 12:04 | Inpatient (IN) ==
[2019-03-27] MEDS ORDERED: diazePAM 10 MG TABLET PO ONE (12:11)
[2019-03-27] MEDS ORDERED: Orphenadrine 60 MG/2 ML VIAL IVP ONE (12:11)
[2019-03-27] MEDS ORDERED: Orphenadrine 60 MG/2 ML VIAL IM ONE (12:21)
--- NOTE | 2019-03-27 13:20 | Emergency Department Note ---
Disposition Clinical Impression: Cellulitis Qualifiers: Site of cellulitis: extremity Site of cellulitis of extremity: lower extremity Laterality: right Qualified Code(s): L03.115 - Cellulitis of right lower limb Sciatica Qualifiers: Laterality: left Qualified Code(s): M54.32 - Sciatica, left side Disposition: Admitted As Inpatient Condition: Good Referrals: NONE,PCP [Primary Care Provider] - Forms: ED Satisfaction Letter General Adult HPI - General Chief complaint: ED Extremity Problem,Nontraumatic Stated complaint: back pain Time Seen by Provider: 03/27/19 12:06 Source: patient, EMS Limitations: no limitations - History of Present Illness Pain Scale: 9 - Related Data Home Medications Medication Instructions Recorded Confirmed Aspirin 81 mg PO DAILY 03/18/16 03/27/19 Metoprolol Tartrate [Lopressor] 50 mg PO BID 03/18/16 03/27/19 Furosemide [Lasix] 40 mg PO DAILY 07/30/16 03/27/19 Fluticasone Propionate Nasal 50 mcg NS DAILY PRN 10/23/16 03/27/19 [Flonase] Loratadine [Allergy Relief] 10 mg PO DAILY 10/23/16 03/27/19 Atorvastatin [Lipitor] 40 mg PO DAILY 06/21/17 03/27/19 Clopidogrel [Plavix] 75 mg PO DAILY 06/21/17 03/27/19 Lidocaine Patch [Lidoderm 5% patch] 1 patch TP DAILY 06/21/17 03/27/19 Insulin NPH Human Isophane 70 unit SQ BID 08/30/17 03/27/19 [Novolin N] Insulin Regular, Human [Novolin R] 40 unit SQ TIDWM 08/30/17 03/27/19 Amlodipine Besylate 10 mg PO QAM 12/10/18 03/27/19 Docusate [Colace] 200 mg PO BID PRN 12/10/18 03/27/19 Ferrous Sulfate 325 mg PO BID 12/10/18 03/27/19 Hydromorphone (Pf) [Hydromorphone 1 each IT AD 12/10/18 03/27/19 Intrathecal Pump] Levothyroxine Sodium [Euthyrox] 175 mcg PO QAM 12/10/18 03/27/19 NALOXONE 4 MG Nasal [place] [Narcan] 4 mg NS AD 12/10/18 03/27/19 Gabapentin [Neurontin] 100 mg PO BID 01/28/19 03/27/19 Losartan Potassium 100 mg PO DAILY 01/28/19 03/27/19 Previous Rx's Medication Instructions Recorded Donepezil [Aricept] 10 mg PO HS tablet 04/16/18 Clindamycin HCl 300 mg PO BID #14 capsule 03/26/19 Allergies Allergy/AdvReac Type Severity Reaction Status Date / Time adhesive tape Allergy Hives,RASH Verified 03/27/19 12:13 pregabalin [From Lyrica] Allergy Swelling Verified 03/27/19 12:13 of Lip/Tongue/Throat Sulfa (Sulfonamide Allergy ITCHY Verified 03/27/19 12:13 Antibiotics) Past Medical History - Past Medical History Medical history: Reports: cancer, CVA, diabetes, hypertension, liver disease, renal disease, thyroid disease, syncope Surgical history: Reports: orthopedic, other, thyroidectomy, other, appendectomy Psychiatric history: Reports: anxiety, depression - Social History Smoking Status: Never smoker Smokeless Tobacco Status: No Alcohol use: Reports: none Drug use: Reports: none Physical Exam - General Limitations: no limitations General appearance: alert, in no apparent distress Course Vital Signs Temperature 98.6 F 03/27/19 12:07 Pulse Rate 76 03/27/19 12:07 Respiratory Rate 16 03/27/19 12:07 Blood Pressure 158/49 03/27/19 12:07 O2 Sat by Pulse Oximetry 95 03/27/19 12:07 Temperature 98.6 F 03/27/19 12:07 Pulse Rate 70 03/27/19 15:00 Respiratory Rate 16 03/27/19 15:00 Blood Pressure 150/66 03/27/19 15:00 O2 Sat by Pulse Oximetry 96 03/27/19 15:00 Oxygen Delivery Oxygen Delivery Room Air Medical Decision Making - Lab Data Result diagrams: 03/27/19 13:35 03/27/19 13:35 Lab Results 03/27/19 03/27/19 03/27/19 Range/Units 13:35 13:35 13:35 WBC 9.7 (4.3-11.1) K/mcL RBC 3.82 L (4.19-5.50) M/mcL Hgb 11.9 L (12.9-16.9) g/dL Hct 35.4 L (37.5-50.1) % MCV 92.7 (83.0-100.0) fL MCH 31.2 (28.0-33.3) pg MCHC 33.6 (31.6-35.5) g/dL RDW 13.8 (11.5-14.5) % Plt Count 106 L (140-400) K/mcL MPV 12.1 (9.4-12.4) fL Immature Gran % 2.0 (0-4) % Seg Neutrophils % 67.3 % Lymphocytes % 14.9 % Monocytes % 8.1 % Eosinophils % 6.8 % Basophils % 0.9 % Neutrophils # 6.5 (1.6-8.9) K/mcL Lymphocytes # 1.5 (0.6-4.6) K/mcL Monocytes # 0.8 (0.0-1.3) K/mcL Eosinophils # 0.7 H (0.0-0.6) K/mcL Basophils # 0.1 (0.0-0.2) K/mcL Sodium 138 (136-145) mEq/L Potassium 4.3 (3.5-5.1) mEq/L Chloride 96 L (98-107) mEq/L Carbon Dioxide 31 H (23-29) mEq/L BUN 24 H (8-23) mg/dL Creatinine 1.15 (0.70-1.30) mg/dL Est GFR ( Amer) > 60 (> 60) Est GFR (Non-Af Amer) > 60 (> 60) BUN/Creatinine Ratio 21 (6-26) Glucose 345 H (70-105) mg/dL Calculated Osmolality 304 H (280-300) Lactic Acid 1.6 (0.5-2.2) mmol/L Calcium 9.9 (8.6-10.3) mg/dL Attestation Statement - Attestation Attestation: I examined this patient and my medical decision-making was reviewed with the Resident Physician. I agree with the documented findings, disposition and treatment plan as described except to the extent set forth below. Patient presents to the ED with a chief complaint of left-sided back pain and right leg pain. Patient has a history of left [id number] indication. He has pain from his buttock to the back of his leg. This is chronic in nature. Unchanged from previous episodes. Is also complaining of pain in his right mao. Patient had recent issues with cellulitis in that leg requiring IV antibiotics. On examination is tenderness of the left buttock and lower back paraspinal muscles. There is no examined his leg is limited secondary to prior amputation. Examination the right leg reveals erythema warmth and tenderness over the right mao. Plan. Appears to have a localized cellulitis. Basic labs and cultures. We will start IV antibiotic. White blood cell count normal. He does not meet sepsis criteria. Admitted to medicine. Tibia/Fibula X-Ray 03/27/19 13:23 IMPRESSION: No acute osseous process. D/ / 03/27/2019 14:08:13 Madan Hayes MD / Louise Carcamo Interpreting Provider: Madan Hayes MD
[2019-03-27] MEDS ORDERED: Piperacillin/Tazobactam 3.375 GM in 0.9 % Sodium Chloride Mini Bag 100 ML IVPB ONE ×2 (13:26→14:00)
[2019-03-27 14:01] LABS: Basophils # 0.1 K/mcL (0.0-0.2); Basophils % 0.9 %; Eosinophils # 0.7 K/mcL (0.0-0.6); Eosinophils % 6.8 %; Hematocrit 35.4 % (37.5-50.1); Hemoglobin 11.9 g/dL (12.9-16.9); Lymphocytes # 1.5 K/mcL (0.6-4.6); Lymphocytes % 14.9 %; Mean Corpuscular HGB Conc 33.6 g/dL (31.6-35.5); Mean Corpuscular Hemoglobin 31.2 pg (28.0-33.3); Mean Corpuscular Volume 92.7 fL (83.0-100.0); Mean Platelet Volume 12.1 fL (9.4-12.4); Monocytes # 0.8 K/mcL (0.0-1.3); Monocytes % 8.1 %; Neutrophils # 6.5 K/mcL (1.6-8.9); Platelet Count 106 K/mcL (140-400); Red Blood Count 3.82 M/mcL (4.19-5.50); Red Cell Distribution Width 13.8 % (11.5-14.5); Segmented Neutrophils % 67.3 %
--- NOTE | 2019-03-27 14:12 | Emergency Department Note ---
Disposition Clinical Impression: Cellulitis Qualifiers: Site of cellulitis: extremity Site of cellulitis of extremity: lower extremity Laterality: right Qualified Code(s): L03.115 - Cellulitis of right lower limb Sciatica Qualifiers: Laterality: left Qualified Code(s): M54.32 - Sciatica, left side Disposition: Admitted As Inpatient Condition: Good Referrals: NONE,PCP [Primary Care Provider] - Forms: ED Satisfaction Letter Time of Disposition: 15:25 General Adult HPI - General Chief complaint: ED Extremity Problem,Nontraumatic Stated complaint: back pain Time Seen by Provider: 03/27/19 12:06 Source: patient, EMS Mode of arrival: EMS Limitations: physical limitation Nursing Notes Reviewed: Yes Vital Signs Reviewed: Yes - History of Present Illness HPI Narrative: 73-year-old male with significant past medical history of poorly controlled diabetes and a left [id number] amputation presenting to the emergency department chief complaint of back pain. Patient states that he has been having worse than normal sciatic pain from his left gluteal area down towards his stump on the left side. Patient also concerned with redness and warmth in his right lower extremity. Patient states he has been admitted multiple times for cellulitis in this leg previously. Patient denies any other symptoms at home. States the pain is been worsening over the past 3 days. Denies any fevers, chest pain or shortness of breath. Pain Scale: 9 - Related Data Home Medications Medication Instructions Recorded Confirmed Aspirin 81 mg PO DAILY 03/18/16 03/27/19 Metoprolol Tartrate [Lopressor] 50 mg PO BID 03/18/16 03/27/19 Furosemide [Lasix] 40 mg PO DAILY 07/30/16 03/27/19 Fluticasone Propionate Nasal 50 mcg NS DAILY PRN 10/23/16 03/27/19 [Flonase] Loratadine [Allergy Relief] 10 mg PO DAILY 10/23/16 03/27/19 Atorvastatin [Lipitor] 40 mg PO DAILY 06/21/17 03/27/19 Clopidogrel [Plavix] 75 mg PO DAILY 06/21/17 03/27/19 Lidocaine Patch [Lidoderm 5% patch] 1 patch TP DAILY 06/21/17 03/27/19 Insulin NPH Human Isophane 70 unit SQ BID 08/30/17 03/27/19 [Novolin N] Insulin Regular, Human [Novolin R] 40 unit SQ TIDWM 08/30/17 03/27/19 Amlodipine Besylate 10 mg PO QAM 12/10/18 03/27/19 Docusate [Colace] 200 mg PO BID PRN 12/10/18 03/27/19 Ferrous Sulfate 325 mg PO BID 12/10/18 03/27/19 Hydromorphone (Pf) [Hydromorphone 1 each IT AD 12/10/18 03/27/19 Intrathecal Pump] Levothyroxine Sodium [Euthyrox] 175 mcg PO QAM 12/10/18 03/27/19 NALOXONE 4 MG Nasal [place] [Narcan] 4 mg NS AD 12/10/18 03/27/19 Gabapentin [Neurontin] 100 mg PO BID 01/28/19 03/27/19 Losartan Potassium 100 mg PO DAILY 01/28/19 03/27/19 Previous Rx's Medication Instructions Recorded Donepezil [Aricept] 10 mg PO HS tablet 04/16/18 Clindamycin HCl 300 mg PO BID #14 capsule 03/26/19 Allergies Allergy/AdvReac Type Severity Reaction Status Date / Time adhesive tape Allergy Hives,RASH Verified 03/27/19 12:13 pregabalin [From Lyrica] Allergy Swelling Verified 03/27/19 12:13 of Lip/Tongue/Throat Sulfa (Sulfonamide Allergy ITCHY Verified 03/27/19 12:13 Antibiotics) All systems ED: reviewed and negative except as stated. Constitutional: Denies: fever Eyes: Reports: as per HPI ENT ED: Reports: as per HPI Cardiovascular: Denies: chest pain Respiratory: Denies: dyspnea Gastrointestinal: Denies: abdominal pain Genitourinary: Reports: as per HPI Musculoskeletal: Reports: arthralgia, myalgia Integumentary: Reports: as per HPI Neurological: Reports: as per HPI Psychiatric: Reports: as per HPI Endocrine: Reports: as per HPI Hematological/Lymphatic: Reports: as per HPI Allergic/Immunologic: Reports: as per HPI Past Medical History - Past Medical History Attestation: Yes The following information was validated with the patient. Source: patient Medical history: Reports: cancer, CVA, diabetes, hypertension, liver disease, renal disease, thyroid disease, syncope Surgical history: Reports: orthopedic, other, thyroidectomy, other, appendectomy Psychiatric history: Reports: anxiety, depression - Social History Smoking Status: Never smoker Smokeless Tobacco Status: No Alcohol use: Reports: none Drug use: Reports: none Physical Exam - General Limitations: no limitations General appearance: alert, in no apparent distress - Head Head exam: atraumatic, normocephalic, normal inspection - Eye Eye exam: Absent: scleral icterus - ENT ENT exam: mucous membranes moist - Neck Neck exam: Present: full ROM - Chest Chest inspection: Present: symmetric chest wall rise - Respiratory Respiratory exam: Present: normal lung sounds bilaterally. Absent: respiratory distress, wheezes - Cardiovascular Cardiovascular exam: Present: regular rate, normal rhythm, normal heart sounds - Abdominal Exam Abdominal exam: Present: soft, Non-Tender. Absent: distention, guarding, rebound - Extremities Exam Extremities exam: Present: other (Left [id number] amputation. Right lower extremity neurovascularly intact. Redness and warmth noted to the anterior mao of the right lower extremity. Tenderness to palpation.) - Neurological Exam Neurological exam: Present: alert, oriented X3 - Psychiatric Psychiatric exam: Present: agitated - Skin Skin exam: Present: warm Course Course Narrative: 73-year-old male presenting with sciatica pain in the left lower extremity and redness to the right lower extremity. Patient is a poorly controlled diabetic and has an above the knee amputation on the left side. Concern that if this is cellulitis in the right lower extremity due to patient only having one leg. This time is alert and oriented 3 and hemodynamically stable. We will provide him with pain relief, perform an x-ray of the right lower extremity and obtain basic labs. Disposition pending. Patient agrees with this plan. - Reevaluation(s) Reevaluation #1: Patient's laboratory analysis baseline for the patient. Due to concern for cellulitis of his one remaining leg will plan to admit him for IV antibiotics. We will perform blood cultures and start Zosyn. Patient remains alert and oriented 3 and hemodynamically stable. Patient agrees this plan. I spoke with the hospitalist manager global communications Dr. Pierce Who agrees to accept the patient at this time. Vital Signs Temperature 98.6 F 03/27/19 12:07 Pulse Rate 76 03/27/19 12:07 Respiratory Rate 16 03/27/19 12:07 Blood Pressure 158/49 03/27/19 12:07 O2 Sat by Pulse Oximetry 95 03/27/19 12:07 Temperature 98.6 F 03/27/19 12:07 Pulse Rate 76 03/27/19 12:07 Respiratory Rate 16 03/27/19 12:07 Blood Pressure 158/49 03/27/19 12:07 O2 Sat by Pulse Oximetry 95 03/27/19 12:07 Oxygen Delivery Oxygen Delivery Room Air Medical Decision Making - Lab Data Result diagrams: 03/27/19 13:35 03/27/19 13:35 Lab Results 03/27/19 03/27/19 03/27/19 Range/Units 13:35 13:35 13:35 WBC 9.7 (4.3-11.1) K/mcL RBC 3.82 L (4.19-5.50) M/mcL Hgb 11.9 L (12.9-16.9) g/dL Hct 35.4 L (37.5-50.1) % MCV 92.7 (83.0-100.0) fL MCH 31.2 (28.0-33.3) pg MCHC 33.6 (31.6-35.5) g/dL RDW 13.8 (11.5-14.5) % Plt Count 106 L (140-400) K/mcL MPV 12.1 (9.4-12.4) fL Immature Gran % 2.0 (0-4) % Seg Neutrophils % 67.3 % Lymphocytes % 14.9 % Monocytes % 8.1 % Eosinophils % 6.8 % Basophils % 0.9 % Neutrophils # 6.5 (1.6-8.9) K/mcL Lymphocytes # 1.5 (0.6-4.6) K/mcL Monocytes # 0.8 (0.0-1.3) K/mcL Eosinophils # 0.7 H (0.0-0.6) K/mcL Basophils # 0.1 (0.0-0.2) K/mcL Sodium 138 (136-145) mEq/L Potassium 4.3 (3.5-5.1) mEq/L Chloride 96 L (98-107) mEq/L Carbon Dioxide 31 H (23-29) mEq/L BUN 24 H (8-23) mg/dL Creatinine 1.15 (0.70-1.30) mg/dL Est GFR ( Amer) > 60 (> 60) Est GFR (Non-Af Amer) > 60 (> 60) BUN/Creatinine Ratio 21 (6-26) Glucose 345 H (70-105) mg/dL Calculated Osmolality 304 H (280-300) Lactic Acid 1.6 (0.5-2.2) mmol/L Calcium 9.9 (8.6-10.3) mg/dL
[2019-03-27 14:30] LABS: BUN/Creatinine Ratio 21 (6-26); Blood Urea Nitrogen 24 mg/dL (8-23); Calcium 9.9 mg/dL (8.6-10.3); Carbon Dioxide 31 mEq/L (23-29); Chloride 96 mEq/L (98-107); Glucose 345 mg/dL (70-105); Osmolality,Calculated 304 (280-300); Potassium 4.3 mEq/L (3.5-5.1); Sodium 138 mEq/L (136-145); eGFR For Non-African Americans > 60 (> 60)
[2019-03-27] MEDS ORDERED: Insulin Human Regular 10 UNIT in 0.9 % Sodium Chloride 10 ML IV ONE (15:44)
[2019-03-27] MEDS ORDERED: Acetaminophen 325 MG TABLET PO PRN (16:25)
[2019-03-27] MEDS ORDERED: Naloxone 0.4 MG/ML INJ IVP PRN (16:25)
[2019-03-27] MEDS ORDERED: *HR* OxyCODONE Immed Rel 5 MG TABLET PO PRN (16:25)
[2019-03-27] MEDS ORDERED: Fluticasone Propionate Nasal 50 MCG/SPRAY BOTTLE NS PRN (16:26)
--- NOTE | 2019-03-27 16:35 | Internal Med History&Physical ---
Date of Encounter: 03/27/19 Time of Encounter: 16:27 Internal Medicine - H&P: HPI Chief complaint: right lower extremity pain Admitted From: Home Plans for Post Hospital Care: Home History of present illness: Mr. Borges is a 73 year old male with recurrent cellulitis, CAD on DAPT , CKD, type II DM, hypothyroidism, s/p left AKA presented to [facility] Ed with complaint of right LE pain and erythema and swlling. as per patient he had had this problem for thepast few months and it has been recurrent. pain is associated with erythema and warmth. his leg is extremely tender to palpation. he denies fever or chills, N/v/D, chest pain or palpitations no recent rauma to [facility] right leg. he has had left AKA with residual pain/sciatica as a result which is relieved with lidocaine patch. he was recently seen in [facility] Ed and was treated with clindamycin and discharged home howveer he never filled his medication adn decided to come to the ED. he was recently seen for similar symptoms and was treated with IV abx. ID was consuletd at that time who was not convinced that this is cellulitis. he was given Zosyn and pain medications in the ED with improvement of his Sx and was endorsed for admission. Past Med Surg Social Fam HX - Past Medical History Medical history: cancer, CVA, diabetes, hypertension, liver disease, renal disease, thyroid disease, syncope Additional medical history: thyroid cancer Psychiatric history: anxiety, depression - Past Surgical History Surgical History: orthopedic, other, thyroidectomy, other, appendectomy Additional surgical history: left AKA. back surgery - Social History Smoking Status: Never smoker Smokeless Tobacco Status: No Alcohol use: none Drug use: none - Family History Mother Family Member Ethnicity: Non- Living Status: Hx Family Cardiac Disorders: Yes (CAD) Father Family Member Ethnicity: Non- Living Status: Hx Family Cardiac Disorders: Yes (HD) Internal Medicine - H&P: Meds Aspirin 81 mg PO DAILY 03/18/16 [History] Metoprolol Tartrate [Lopressor] 50 mg PO BID 03/18/16 [History] Furosemide [Lasix] 40 mg PO DAILY 07/30/16 [History] Fluticasone Propionate Nasal [Flonase] 50 mcg NS DAILY PRN 10/23/16 [History] Loratadine [Allergy Relief] 10 mg PO DAILY 10/23/16 [History] Atorvastatin [Lipitor] 40 mg PO DAILY 06/21/17 [History] Clopidogrel [Plavix] 75 mg PO DAILY 06/21/17 [History] Lidocaine Patch [Lidoderm 5% patch] 1 patch TP DAILY 06/21/17 [History] Insulin NPH Human Isophane [Novolin N] 70 unit SQ BID 08/30/17 [History] Insulin Regular, Human [Novolin R] 40 unit SQ TIDWM 08/30/17 [History] Donepezil [Aricept] 10 mg PO HS tablet 04/16/18 [Rx] Amlodipine Besylate 10 mg PO QAM 12/10/18 [History] Docusate [Colace] 200 mg PO BID PRN 12/10/18 [History] Ferrous Sulfate 325 mg PO BID 12/10/18 [History] Hydromorphone (Pf) [Hydromorphone Intrathecal Pump] 1 each IT AD 12/10/18 [His tory] Levothyroxine Sodium [Euthyrox] 175 mcg PO QAM 12/10/18 [History] NALOXONE 4 MG Nasal [place] [Narcan] 4 mg NS AD 12/10/18 [History] Gabapentin [Neurontin] 100 mg PO BID 01/28/19 [History] Losartan Potassium 100 mg PO DAILY 01/28/19 [History] Clindamycin HCl 300 mg PO BID #14 capsule 03/26/19 [Rx] Allergy/AdvReac Type Severity Reaction Status Date / Time adhesive tape Allergy Hives,RASH Verified 03/27/19 12:13 pregabalin [From Lyrica] Allergy Swelling Verified 03/27/19 12:13 of Lip/Tongue/Throat Sulfa (Sulfonamide Allergy ITCHY Verified 03/27/19 12:13 Antibiotics) All Systems PM: A 10-system review of systems was performed and is negative for pertinent findings except as documented above in the HPI. - Constitutional Vitals: Temp Pulse Resp BP Pulse Ox 98.6 F 70 16 150/66 96 03/27/19 12:07 03/27/19 15:00 03/27/19 15:00 03/27/19 15:00 03/27/19 15:00 Exam: General: Patient is alert, oriented, no acute distress, obese Head: atraumatic, normocephalic, Eye: normal appearance, PERRL, no scleral icterus, no conjunctival injection ENT: mucous membranes moist, normal external ear exam Neck: normal inspection, trachea midline, full ROM, no carotid bruits Chest: normal inspection, symmetric chest rise Respiratory: Good respiratory effort. Bilateral breath sounds are clear without wheezing, crackles, or rhonchi. Cardiovascular: Regular rate and rhythm. s1 and s2 No clicks, rubs, gallops, or murmors. Abdomen: Bowel sounds present normoactive x-4 quadrants. Abdomen is soft, nondistended. no Epigastric tenderness. No guarding or rebound. No organomegaly noted, obese musculoskeletal: Left AKA, right lower extremity is arm to touch, has erythema and painful to palpation from above the ankle to mid line of tibia. Skin: warm, dry, intact. Neuro: Alert and oriented x 3 no focal deficit Psych: Patient's affect is normal Internal Med - H&P Results - Labs CBC & Chem 7: 03/27/19 13:35 03/27/19 13:35 Labs: Short CBC 03/27/19 Range/Units 13:35 WBC 9.7 (4.3-11.1) K/mcL Hgb 11.9 L (12.9-16.9) g/dL Hct 35.4 L (37.5-50.1) % Plt Count 106 L (140-400) K/mcL Neutrophils # 6.5 (1.6-8.9) K/mcL BMP 03/27/19 13:35 Sodium 138 Potassium 4.3 Chloride 96 L Carbon Dioxide 31 H BUN 24 H Creatinine 1.15 Glucose 345 H Calcium 9.9 - Impressions ITS Impressions Tibia/Fibula X-Ray 03/27/19 13:23 IMPRESSION: No acute osseous process. D/ / 03/27/2019 14:08:13 Madan Hayes MD / Louise Carcamo Interpreting Provider: Madan Hayes MD - Assessment and Plan (1) Cellulitis of right lower extremity without foot Current Visit: No Status: Acute Assessment and plan: ESR, CRP, CPK ordered continue with zosyn MRSA swab follow blood cx pain control with tylenol nursing staff aware to segundo the area of cellulitis. MARKELL: The right ankle-brachial index and waveforms are normal. The right ankle-brachial index is 1.21. DVT study performed on 03/26/19: Right lower extremity: normal superficial and deep exam. (2) Uncontrolled diabetes mellitus Current Visit: Yes Status: Acute Assessment and plan: A1c was 9 on last admission on march 07 2019 started on sliding scale. continue with NPH home dose and sliding scale insulin Qualifiers: Diabetes mellitus type: type 2 Glycemic state: with hyperglycemia Qualified Code(s): E11.65 - Type 2 diabetes mellitus with hyperglycemia (3) Sciatica Current Visit: Yes Status: Chronic Assessment and plan: of the LLE continue with lidocaine patch that he take sat home Qualifiers: Laterality: left Qualified Code(s): M54.32 - Sciatica, left side (4) Obesity (BMI 30.0-34.9) Current Visit: Yes Status: Acute Assessment and plan: was counseled nutrition consult (5) CAD (coronary artery disease) Current Visit: Yes Status: Acute Assessment and plan: continue DAPT, BB, ARB, statins and IMDUR Qualifiers: Coronary Disease-Associated Artery/Lesion type: [place] artery [place] vs. transplanted heart: [place] heart Associated angina: without angina Qualified Code(s): I25.10 - Atherosclerotic heart disease of [place] coronary artery without angina pectoris (6) DVT prophylaxis Current Visit: No Status: Acute - Time Spent With Patient Total time spent is greater than 50% in coordination of care (as documented) at patient's floor/unit and/or counseling patient:
[2019-03-27] MEDS ORDERED: Dextrose Gel 15 GM/37.5 ML TUBE PO PRN ×2 (16:42)
[2019-03-27] MEDS ORDERED: D5% in Water 1,000 ML IVC PRN (16:42)
[2019-03-27] MEDS ORDERED: *HR* Dextrose 50 % in Water (Syg) 50 ML SYRINGE IVP PRN (16:42)
[2019-03-27 16:44] LABS: C-Reactive Protein 12 mg/L (Less than 10); Creatine Kinase 222 Units/L (30-223)
[2019-03-27 16:48] LABS: Estimated Average Glucose 223 mg/dl; Hemoglobin A1C 9.4 %
[2019-03-27] MEDS: Gabapentin 100 MG CAPSULE PO SCH (20:11)
[2019-03-27] MEDS: *HR* HYDROcodone/Acet 5/325 mg TABLET PO PRN (20:12)
[2019-03-27] MEDS: Insulin LISPRO 300 UNITS/3 ML VIAL SQ SCH (20:17)
[2019-03-27] MEDS: *HR* Heparin 5,000 UNIT/ML VIAL SQ SCH (21:35)
[2019-03-27] MEDS: Insulin NPH 100 UNIT/ML (x5UNIT) SQ SCH (21:35)
[2019-03-28] MEDS ORDERED: Piperacillin/Tazobactam 3.375 GM in 0.9 % Sodium Chloride Mini Bag 100 ML IVPB SCH
[2019-03-28] MEDS: *HR* Heparin 5,000 UNIT/ML VIAL SQ SCH ×3 (06:00→20:36)
[2019-03-28 08:19] LABS: Alanine Aminotransferase 33 Units/L (7-52); Albumin 3.8 g/dL (3.5-5.7); Albumin/Globulin Ratio 1.4 (1.1-2.2); Alkaline Phosphatase 75 Units/L (34-104); Aspartate Amino Transferase 52 Units/L (13-39); BUN/Creatinine Ratio 23 (6-26); Bilirubin,Total 0.6 mg/dL (0.3-1.0); Blood Urea Nitrogen 24 mg/dL (8-23); Carbon Dioxide 27 mEq/L (23-29); Chloride 103 mEq/L (98-107); Chol/HDL Ratio 4.4 (0-4.9); Cholesterol 124 mg/dL (< 200); Globulin 2.8 g/dL (2.4-3.5); Glucose 217 mg/dL (70-105); HDL Cholesterol 28 mg/dL (40-59); LDL Cholesterol,Calculated 45 mg/dL (0-99); Osmolality,Calculated 295 (280-300); Potassium 4.1 mEq/L (3.5-5.1); Sodium 137 mEq/L (136-145); Total Protein 6.6 g/dL (6.4-8.9); Triglycerides 254 mg/dL (< 150); eGFR For Non-African Americans > 60 (> 60)
[2019-03-28] MEDS: Furosemide 40 MG TABLET PO SCH (08:50)
[2019-03-28] MEDS: Loratadine 10 MG TABLET PO SCH (08:51)
[2019-03-28] MEDS: Aspirin 81 MG TAB.CHEW PO SCH (08:51)
[2019-03-28] MEDS: Gabapentin 100 MG CAPSULE PO SCH ×2 (08:51→20:35)
[2019-03-28] MEDS: amLODIPine 5 MG TABLET PO SCH (08:52)
[2019-03-28] MEDS: Insulin NPH 100 UNIT/ML (x5UNIT) SQ SCH ×2 (08:52→20:47)
[2019-03-28] MEDS: Insulin LISPRO 300 UNITS/3 ML VIAL SQ SCH ×6 (08:53→20:40)
[2019-03-28 11:07] LABS: Hematocrit 35.1 % (37.5-50.1); Mean Corpuscular Volume 91.4 fL (83.0-100.0); Red Blood Count 3.84 M/mcL (4.19-5.50)
[2019-03-28 11:09] LABS: Hemoglobin 11.9 g/dL (12.9-16.9); Immature Platelets 10.4 % (1.1-6.1); Mean Corpuscular HGB Conc 33.9 g/dL (31.6-35.5); Mean Platelet Volume 12.7 fL (9.4-12.4); Red Cell Distribution Width 13.9 % (11.5-14.5)
--- NOTE | 2019-03-28 11:12 | Internal Med Progress Note ---
Hospitalist Progress Note - Encounter Date of Encounter: 03/28/19 Time of Encounter: 08:10 - Subjective Interval History: Patient was seen and examined at bedside reports that his pain and swelling along with redness has improved greatly since admission. Feels as though the IV antibiotics is helping him. He denies fever, chills, nausea, vomiting or diarrhea. Is tolerating by mouth diet. - Exam Vitals: Temp Pulse Resp BP Pulse Ox 97.9 F 59 17 132/70 91 03/28/19 11:00 03/28/19 11:00 03/28/19 11:03/28/19 11:03/28/19 11:00 Exam: General: Patient is alert, oriented, no acute distress, obese Head: atraumatic, normocephalic, Eye: normal appearance, PERRL, no scleral icterus, no conjunctival injection ENT: mucous membranes moist, normal external ear exam Neck: normal inspection, trachea midline, full ROM, no carotid bruits Chest: normal inspection, symmetric chest rise Respiratory: Good respiratory effort. Bilateral breath sounds are clear without wheezing, crackles, or rhonchi. Cardiovascular: Regular rate and rhythm. s1 and s2 No clicks, rubs, gallops, or murmors. Abdomen: Bowel sounds present normoactive x-4 quadrants. Abdomen is soft, nondistended. no Epigastric tenderness. No guarding or rebound. No organomegaly noted, obese musculoskeletal: Left AKA, right lower extremity is arm to touch, has erythema and painful to palpation from above the ankle to mid line of tibia. ( improved) Skin: warm, dry, intact. Neuro: Alert and oriented x 3 no focal deficit Psych: Patient's affect is normal - Assessment and Plan (1) Cellulitis of right lower extremity without foot Current Visit: No Status: Acute Assessment and Plan: ESR 44, CRP 12, CPK 222 MRSA swab - positive was treated with Zosyn changed to vancomycin blood cx in process pain control with tylenol nursing staff aware to segundo the area of cellulitis. ID consulted will follow recs MARKELL: The right ankle-brachial index and waveforms are normal. The right ankle-brachial index is 1.21. DVT study performed on 03/26/19: Right lower extremity: normal superficial and deep exam. (2) Uncontrolled diabetes mellitus Current Visit: Yes Status: Acute Assessment and Plan: A1c was 9 on last admission on march 07 2019 started on sliding scale. continue with NPH home dose and sliding scale insulin (3) Sciatica Current Visit: Yes Status: Chronic Assessment and Plan: of the LLE continue with lidocaine patch that he take sat home (4) Obesity (BMI 30.0-34.9) Current Visit: Yes Status: Acute Assessment and Plan: was counseled nutrition consult (5) CAD (coronary artery disease) Current Visit: Yes Status: Acute Assessment and Plan: continue DAPT, BB, ARB, statins and IMDUR (6) DVT prophylaxis Current Visit: No Status: Acute Assessment and Plan: heparin sc - Time Spent with Patient Total time spent is greater than 50% in coordination of care (as documented) at patient's floor/unit and/or counseling patient: Internal Medicine: Result - Labs CBC & Chem 7: 03/27/19 13:35 03/28/19 07:50 Labs: Short CBC 03/27/19 Range/Units 13:35 WBC 9.7 (4.3-11.1) K/mcL Hgb 11.9 L (12.9-16.9) g/dL Hct 35.4 L (37.5-50.1) % Plt Count 106 L (140-400) K/mcL Neutrophils # 6.5 (1.6-8.9) K/mcL BMP 03/27/19 03/28/19 13:35 07:50 Sodium 138 137 Potassium 4.3 4.1 Chloride 96 L 103 Carbon Dioxide 31 H 27 BUN 24 H 24 H Creatinine 1.15 1.04 Glucose 345 H 217 H Calcium 9.9 9.0 Liver Function 03/28/19 Range/Units 07:50 Total Bilirubin 0.6 (0.3-1.0) mg/dL AST 52 H (13-39) Units/L ALT 33 (7-52) Units/L Alkaline Phosphatase 75 (34-104) Units/L Albumin 3.8 (3.5-5.7) g/dL - Impressions Impressions Tibia/Fibula X-Ray 03/27/19 13:23 IMPRESSION: No acute osseous process. D/ / 03/27/2019 14:08:13 Madan Hayes MD / Louise Carcamo Interpreting Provider: Madan Hayes MD Consult Discharge Plan - Plan Referrals: Chandan Fitzgerald MD [Partnered Physician] - (2) Uncontrolled diabetes mellitus Qualifiers: Diabetes mellitus type: type 2 Glycemic state: with hyperglycemia Qualified Code(s): E11.65 - Type 2 diabetes mellitus with hyperglycemia (3) Sciatica Qualifiers: Laterality: left Qualified Code(s): M54.32 - Sciatica, left side (5) CAD (coronary artery disease) Qualifiers: Coronary Disease-Associated Artery/Lesion type: [place] artery [place] vs. transplanted heart: [place] heart Associated angina: without angina Qualified Code(s): I25.10 - Atherosclerotic heart disease of [place] coronary artery without angina pectoris
[2019-03-28] MEDS ORDERED: Aminoglycoside Consult 1 EACH MC ONE (14:09)
--- NOTE | 2019-03-28 16:36 | Infectious Disease Consult ---
Infectious Disease-Consult - Encounter Date/Time Date of Encounter: 03/28/19 Time of Encounter: 16:33 - Data of Consult Patient: known to practice within the last 3 years Reason for consult: recurrent lower extremity cellulitis Consult date: 03/28/19 Requesting Physician: Yolis Rahman MD Primary Care Provider: PCP NONE - HPI HPI: Patient is a 73-year-old gentleman well-known to my service who we have seen multiple admissions with this chronic discoloration of his right leg. Patient also has diabetes mellitus type 2, history of CVA, peripheral neuropathy. Patient also has liver cirrhosis and etiology not clear. Right lower extremity so he decided to come to the hospital for evaluation. He denied any fevers or chills. No night sweats. No weight gain or weight loss. Rest of his review of system is essentially negative. Since admission, patient has been afebrile, no tachycardia no tachypnea. Presenting labs revealed WBC 9.7 with normal differential. Rest of the labs were not impressive. Blood cultures 2 sets negative so far. X-ray of the right leg erythema was read as no acute fracture or dislocation and soft tissue are unremarkable. Patient was started on vancomycin and Zosyn were asked to evaluate the patient's make further recommendations. - ROS Review of Systems: 10 point ROS done, negative other for what's mentioned in the HPI - Results CBC & Chem 7: 03/28/19 10:44 03/28/19 07:50 - Exam Vitals: Temp Pulse Resp BP Pulse Ox 98.0 F 63 17 122/71 89 03/28/19 16:05 03/28/19 16:05 03/28/19 16:05 03/28/19 16:05 03/28/19 16:05 Exam: GENERAL: Comfortable. Laying in bed NAD HEENT: MERCY, EOMI LUNGS: Good air sounds bilaterally, no wheezing or rhonchi CV: RRR, S1 S2 ABDOMEN: Soft, nontender, + bowel sounds EXT: L AKA and right foot with chronic discoloration of the anterior aspect of the leg that is chornic and unchanged. not warm to touch, no fluctaunce no crepitus NEURO: A&OX3; no focal deficit Aspirin 81 mg PO DAILY 03/18/16 [History] Metoprolol Tartrate [Lopressor] 50 mg PO BID 03/18/16 [History] Furosemide [Lasix] 40 mg PO DAILY 07/30/16 [History] Fluticasone Propionate Nasal [Flonase] 50 mcg NS DAILY PRN 10/23/16 [History] Loratadine [Allergy Relief] 10 mg PO DAILY 10/23/16 [History] Atorvastatin [Lipitor] 40 mg PO DAILY 06/21/17 [History] Clopidogrel [Plavix] 75 mg PO DAILY 06/21/17 [History] Lidocaine Patch [Lidoderm 5% patch] 1 patch TP DAILY 06/21/17 [History] Insulin NPH Human Isophane [Novolin N] 70 unit SQ BID 08/30/17 [History] Insulin Regular, Human [Novolin R] 40 unit SQ TIDWM 08/30/17 [History] Donepezil [Aricept] 10 mg PO HS tablet 04/16/18 [Rx] Amlodipine Besylate 10 mg PO QAM 12/10/18 [History] Docusate [Colace] 200 mg PO BID PRN 12/10/18 [History] Ferrous Sulfate 325 mg PO BID 12/10/18 [History] Hydromorphone (Pf) [Hydromorphone Intrathecal Pump] 1 each IT AD 12/10/18 [History] Levothyroxine Sodium [Euthyrox] 175 mcg PO QAM 12/10/18 [History] NALOXONE 4 MG Nasal [place] [Narcan] 4 mg NS AD 12/10/18 [History] Gabapentin [Neurontin] 100 mg PO BID 01/28/19 [History] Losartan Potassium 100 mg PO DAILY 01/28/19 [History] Clindamycin HCl 300 mg PO BID #14 capsule 03/26/19 [Rx] Allergy/AdvReac Type Severity Reaction Status Date / Time adhesive tape Allergy Hives,RASH Verified 03/27/19 12:13 pregabalin [From Lyrica] Allergy Swelling Verified 03/27/19 12:13 of Lip/Tongue/Throat Sulfa (Sulfonamide Allergy ITCHY Verified 03/27/19 12:13 Antibiotics) - Assessment and Plan (1) Rash Current Visit: Yes Status: Acute RLE chronic I have seen this patient on multiple admission and the rash looks unchanged no associated constitutional symptoms I don't believe this is a cellulitis I recommend stopping all antibiotics and observing ; patient also known to have chronic neuropathy so I think that is what keeps causing his pain Maybe patient might benefit from a dermatology evaluation as outpatient in the future we will sign off, please call us for any further questions/concerns SNOMED Code(s): 326383144 (2) DM (diabetes mellitus), type 2 Current Visit: No Status: Chronic Qualifiers: 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 Diabetes mellitus complication status: with kidney complications Diabetes mellitus complication detail: with chronic kidney disease Chronic kidney disease stage: stage 3 (moderate) Qualified Code(s): E11.22 - Type 2 diabetes mellitus with diabetic chronic kidney disease; N18.3 - Chronic kidney disease, stage 3 (m oderate); 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 SNOMED Code(s): 41491737 (3) Cirrhosis Current Visit: No Status: Chronic Qualifiers: Hepatic cirrhosis type: unspecified hepatic cirrhosis Ascites presence: without ascites Qualified Code(s): K74.60 - Unspecified cirrhosis of liver SNOMED Code(s): 57077229 (4) Pain and swelling of right lower extremity Current Visit: No Status: Acute SNOMED Code(s): 94973893 Past Med Surg Social Fam HX - Past Medical History Medical history: cancer, CVA, diabetes, hypertension, liver disease, renal disease, thyroid disease, syncope Additional medical history: thyroid cancer Psychiatric history: anxiety, depression - Past Surgical History Surgical History: orthopedic, other, thyroidectomy, other, appendectomy Additional surgical history: left AKA. back surgery - Social History Smoking Status: Never smoker Smokeless Tobacco Status: No Alcohol use: none Drug use: none - Family History Mother Family Member Ethnicity: Non- Living Status: Hx Family Cardiac Disorders: Yes (CAD) Father Family Member Ethnicity: Non- Living Status: Hx Family Cardiac Disorders: Yes (HD) Consult Discharge Plan - Plan Referrals: Chandan Fitzgerald MD [Partnered Physician] -
[2019-03-28] MEDS: Patient Taking Own Medication 1 EACH IT SCH (18:33)
[2019-03-28] MEDS: Thiamine (B-1) 100 MG TABLET PO SCH (18:33)
[2019-03-28] MEDS: *HR* HYDROcodone/Acet 5/325 mg TABLET PO PRN (22:36)
[2019-03-29] MEDS: *HR* HYDROcodone/Acet 5/325 mg TABLET PO PRN (04:35)
[2019-03-29] MEDS: Aspirin 81 MG TAB.CHEW PO SCH (08:44)
[2019-03-29] MEDS: Furosemide 40 MG TABLET PO SCH (08:44)
[2019-03-29] MEDS: amLODIPine 5 MG TABLET PO SCH (08:45)
[2019-03-29] MEDS: Gabapentin 100 MG CAPSULE PO SCH ×2 (08:45→21:02)
[2019-03-29] MEDS: Thiamine (B-1) 100 MG TABLET PO SCH (08:45)
[2019-03-29] MEDS: Loratadine 10 MG TABLET PO SCH (08:46)
[2019-03-29] MEDS: *HR* Heparin 5,000 UNIT/ML VIAL SQ SCH ×3 (08:47→21:02)
[2019-03-29] MEDS: Insulin LISPRO 300 UNITS/3 ML VIAL SQ SCH ×6 (08:50→21:06)
[2019-03-29] MEDS: Patient Taking Own Medication 1 EACH IT SCH (08:51)
[2019-03-29] MEDS: Insulin NPH 100 UNIT/ML (x5UNIT) SQ SCH ×2 (09:07→21:03)
--- NOTE | 2019-03-29 13:28 | Internal Med Progress Note ---
Hospitalist Progress Note - Encounter Date of Encounter: 03/29/19 Time of Encounter: 09:00 - Subjective Interval History: She was seen and examined at bedside. Reports that his left lower extremity pain has improved, denies any fever, chills or nausea or vomiting. Was encouraged to ambulate. Tolerating by mouth diet, pain is controlled. - Exam Vitals: Temp Pulse Resp BP Pulse Ox 98.1 F 59 18 107/62 92 03/29/19 10:59 03/29/19 10:59 03/29/19 10:59 03/29/19 10:59 03/29/19 10:59 Exam: General: Patient is alert, oriented, no acute distress, obese Head: atraumatic, normocephalic, Eye: normal appearance, PERRL, no scleral icterus, no conjunctival injection ENT: mucous membranes moist, normal external ear exam Neck: normal inspection, trachea midline, full ROM, no carotid bruits Chest: normal inspection, symmetric chest rise Respiratory: Good respiratory effort. Bilateral breath sounds are clear without wheezing, crackles, or rhonchi. Cardiovascular: Regular rate and rhythm. s1 and s2 No clicks, rubs, gallops, or murmors. Abdomen: Bowel sounds present normoactive x-4 quadrants. Abdomen is soft, nondistended. no Epigastric tenderness. No guarding or rebound. No organomegaly noted, obese musculoskeletal: Left AKA, right lower extremity is arm to touch, has erythema and painful to palpation from above the ankle to mid line of tibia. ( improved) Skin: warm, dry, intact. Neuro: Alert and oriented x 3 no focal deficit Psych: Patient's affect is normal - Assessment and Plan (1) Cellulitis of right lower extremity without foot Current Visit: No Status: Acute Assessment and Plan: ESR 44, CRP 12, CPK 222 MRSA swab - positive was treated with Zosyn changed to vancomycin - antibiotics were discontinued on 03/29 will observe patient for leukocytosis and fever. blood cx no growth to date pain control with tylenol nursing staff aware to segundo the area of cellulitis. ID consulted and recommended to discontinue antibiotics and observe. MARKELL: The right ankle-brachial index and waveforms are normal. The right ankle-brachial index is 1.21. DVT study performed on 03/26/19: Right lower extremity: normal superficial and deep exam. (2) Uncontrolled diabetes mellitus Current Visit: Yes Status: Acute Assessment and Plan: A1c was 9 on last admission on march 07 2019 started on sliding scale. continue with NPH home dose and sliding scale insulin (3) Sciatica Current Visit: Yes Status: Chronic Assessment and Plan: of the LLE continue with lidocaine patch that he take sat home (4) Obesity (BMI 30.0-34.9) Current Visit: Yes Status: Acute Assessment and Plan: was counseled nutrition consult (5) CAD (coronary artery disease) Current Visit: Yes Status: Acute Assessment and Plan: continue DAPT, BB, ARB, statins and IMDUR (6) DVT prophylaxis Current Visit: No Status: Acute Assessment and Plan: heparin sc - Time Spent with Patient Total time spent is greater than 50% in coordination of care (as documented) at patient's floor/unit and/or counseling patient: Internal Medicine: Result - Labs CBC & Chem 7: 03/28/19 10:44 03/28/19 07:50 Consult Discharge Plan - Plan Referrals: Chandan Fitzgerald MD [Partnered Physician] - (2) Uncontrolled diabetes mellitus Qualifiers: Diabetes mellitus type: type 2 Glycemic state: with hyperglycemia Qualified Code(s): E11.65 - Type 2 diabetes mellitus with hyperglycemia (3) Sciatica Qualifiers: Laterality: left Qualified Code(s): M54.32 - Sciatica, left side (5) CAD (coronary artery disease) Qualifiers: Coronary Disease-Associated Artery/Lesion type: [place] artery [place] vs. transplanted heart: [place] heart Associated angina: without angina Qualified Code(s): I25.10 - Atherosclerotic heart disease of [place] coronary artery without angina pectoris
[2019-03-29] MEDS: GuaiFENesin/Dextromethorphan TABLET PO PRN (21:02)
[2019-03-30] MEDS: *HR* Heparin 5,000 UNIT/ML VIAL SQ SCH ×3 (04:45→20:30)
[2019-03-30] MEDS: Aspirin 81 MG TAB.CHEW PO SCH (07:43)
[2019-03-30] MEDS: Loratadine 10 MG TABLET PO SCH (07:43)
[2019-03-30] MEDS: Thiamine (B-1) 100 MG TABLET PO SCH (07:43)
[2019-03-30] MEDS: Furosemide 40 MG TABLET PO SCH (07:44)
[2019-03-30] MEDS: Patient Taking Own Medication 1 EACH IT SCH (07:44)
[2019-03-30] MEDS: amLODIPine 5 MG TABLET PO SCH (07:44)
[2019-03-30] MEDS: Gabapentin 100 MG CAPSULE PO SCH ×2 (07:44→20:30)
[2019-03-30] MEDS: Insulin NPH 100 UNIT/ML (x5UNIT) SQ SCH ×2 (09:03→20:48)
[2019-03-30] MEDS: Insulin LISPRO 300 UNITS/3 ML VIAL SQ SCH ×7 (09:03→20:30)
[2019-03-30 10:17] LABS: Hematocrit 35.9 % (37.5-50.1); Mean Corpuscular HGB Conc 33.4 g/dL (31.6-35.5); Mean Corpuscular Hemoglobin 31.3 pg (28.0-33.3); Mean Corpuscular Volume 93.5 fL (83.0-100.0); Mean Platelet Volume 11.7 fL (9.4-12.4); Platelet Count 107 K/mcL (140-400); Red Blood Count 3.84 M/mcL (4.19-5.50); Red Cell Distribution Width 14.4 % (11.5-14.5)
[2019-03-30] MEDS ORDERED: Lidocaine 4% CREAM (LMX) 5 GM TP ONE (12:46)
--- NOTE | 2019-03-30 12:49 | Internal Med Progress Note ---
Hospitalist Progress Note - Encounter Date of Encounter: 03/30/19 Time of Encounter: 09:46 - Subjective Interval History: Patient was seen and examined at bedside. Continues to have pain of the right lower extremity however does report that the erythema has improved. He is denies fever or chills. All lab and imaging studies discussed with the patient. I discussed that as per ID recommendations will discontinue antibiotics and he is to follow-up with dermatology as outpatient. Pain is controlled currently however he does request topical pain medications. - Exam Vitals: Temp Pulse Resp BP Pulse Ox 98.2 F 69 16 119/73 93 03/30/19 11:17 03/30/19 11:17 03/30/19 11:17 03/30/19 11:17 03/30/19 11:17 Exam: General: Patient is alert, oriented, no acute distress, obese Head: atraumatic, normocephalic, Eye: normal appearance, PERRL, no scleral icterus, no conjunctival injection ENT: mucous membranes moist, normal external ear exam Neck: normal inspection, trachea midline, full ROM, no carotid bruits Chest: normal inspection, symmetric chest rise Respiratory: Good respiratory effort. Bilateral breath sounds are clear without wheezing, crackles, or rhonchi. Cardiovascular: Regular rate and rhythm. s1 and s2 No clicks, rubs, gallops, or murmors. Abdomen: Bowel sounds present normoactive x-4 quadrants. Abdomen is soft, nondistended. no Epigastric tenderness. No guarding or rebound. No organomegaly noted, obese musculoskeletal: Left AKA, right lower extremity is arm to touch, has erythema and painful to palpation from above the ankle to mid line of tibia. ( improved) Skin: warm, dry, intact. Neuro: Alert and oriented x 3 no focal deficit Psych: Patient's affect is normal - Assessment and Plan (1) Cellulitis of right lower extremity without foot Current Visit: No Status: Acute Assessment and Plan: ESR 44, CRP 12, CPK 222 MRSA swab - positive was treated with Zosyn changed to vancomycin - antibiotics were discontinued on 03/29 will observe patient for leukocytosis and fever. blood cx no growth to date pain control with tylenol nursing staff aware to segundo the area of cellulitis. ID consulted and recommended to discontinue antibiotics and observe. Outpatient dermatology follow-up. Started on bacitracin cream and lidocaine cream for pain MARKELL: The right ankle-brachial index and waveforms are normal. The right ankle-brachial index is 1.21. DVT study performed on 03/26/19: Right lower extremity: normal superficial and deep exam. (2) Uncontrolled diabetes mellitus Current Visit: Yes Status: Acute Assessment and Plan: A1c was 9 on last admission on march 07 2019 started on sliding scale. continue with NPH home dose and sliding scale insulin (3) Sciatica Current Visit: Yes Status: Chronic Assessment and Plan: of the LLE continue with lidocaine patch that he take sat home (4) Obesity (BMI 30.0-34.9) Current Visit: Yes Status: Acute Assessment and Plan: was counseled nutrition consult (5) CAD (coronary artery disease) Current Visit: Yes Status: Acute Assessment and Plan: continue DAPT, BB, ARB, statins and IMDUR (6) DVT prophylaxis Current Visit: No Status: Acute Assessment and Plan: heparin sc - Time Spent with Patient Total time spent is greater than 50% in coordination of care (as documented) at patient's floor/unit and/or counseling patient: Internal Medicine: Result - Labs CBC & Chem 7: 03/30/19 10:05 03/28/19 07:50 Labs: Short CBC 03/30/19 Range/Units 10:05 WBC 9.4 (4.3-11.1) K/mcL Hgb 12.0 L (12.9-16.9) g/dL Hct 35.9 L (37.5-50.1) % Plt Count 107 L (140-400) K/mcL Consult Discharge Plan - Plan Referrals: Chandan Fitzgerald MD [Partnered Physician] - (2) Uncontrolled diabetes mellitus Qualifiers: Diabetes mellitus type: type 2 Glycemic state: with hyperglycemia Qualified Code(s): E11.65 - Type 2 diabetes mellitus with hyperglycemia (3) Sciatica Qualifiers: Laterality: left Qualified Code(s): M54.32 - Sciatica, left side (5) CAD (coronary artery disease) Qualifiers: Coronary Disease-Associated Artery/Lesion type: [place] artery [place] vs. transplanted heart: [place] heart Associated angina: without angina Qualified Code(s): I25.10 - Atherosclerotic heart disease of [place] coronary artery without angina pectoris
[2019-03-30] MEDS: Bacitracin/PolymyxinB OINT 14.17 GM TUBE TP SCH ×2 (16:00→20:48)
[2019-03-30] MEDS: GuaiFENesin/Dextromethorphan TABLET PO PRN (20:29)
[2019-03-31 04:14] VITALS: BP 125/68
[2019-03-31] MEDS: *HR* Heparin 5,000 UNIT/ML VIAL SQ SCH (05:49)
[2019-03-31] MEDS: Insulin LISPRO 300 UNITS/3 ML VIAL SQ SCH (08:44)
[2019-03-31] MEDS: Loratadine 10 MG TABLET PO SCH (08:45)
[2019-03-31] MEDS: Aspirin 81 MG TAB.CHEW PO SCH (08:45)
[2019-03-31] MEDS: Thiamine (B-1) 100 MG TABLET PO SCH (08:46)
[2019-03-31] MEDS: Gabapentin 100 MG CAPSULE PO SCH (08:46)
[2019-03-31] MEDS: amLODIPine 5 MG TABLET PO SCH (08:46)
[2019-03-31] MEDS: Furosemide 40 MG TABLET PO SCH (08:46)
[2019-03-31] MEDS: Patient Taking Own Medication 1 EACH IT SCH (08:47)
--- NOTE | 2019-03-31 09:52 | Discharge Summary ---
- NOTES TO OUTPATIENT PROVIDER Notes to Outpatient Provider: star spears with pcp and dermatology Orders not resulted at time of discharge: Pending orders 03/27/19 13:35 Culture,Blood [BC] Stat Date of Encounter: 03/31/19 Time of Encounter: 09:46 - Discharge Diagnosis (1) Rash Priority: Primary Status: Acute (2) Uncontrolled diabetes mellitus Priority: Secondary Status: Acute Qualifiers: Diabetes mellitus type: type 2 Glycemic state: with hyperglycemia Qualified Code(s): E11.65 - Type 2 diabetes mellitus with hyperglycemia (3) Sciatica Priority: Secondary Status: Chronic Qualifiers: Laterality: left Qualified Code(s): M54.32 - Sciatica, left side (4) Obesity (BMI 30.0-34.9) Priority: Secondary Status: Acute (5) CAD (coronary artery disease) Priority: Secondary Status: Acute Qualifiers: Coronary Disease-Associated Artery/Lesion type: [place] artery [place] vs. transplanted heart: [place] heart Associated angina: without angina Qualified Code(s): I25.10 - Atherosclerotic heart disease of [place] coronary artery without angina pectoris (6) DVT prophylaxis Priority: Secondary Status: Acute Hospital course: "Mr. Borges is a 73 year old male with recurrent cellulitis, CAD on DAPT , CKD, type II DM, hypothyroidism, s/p left AKA presented to [facility] with complaint of right LE pain and erythema and swlling. as per patient he had had this problem for thepast few months and it has been recurrent. pain is associated with erythema and warmth. his leg is extremely tender to palpation. he denies fever or chills, N/v/D, chest pain or palpitations no recent rauma to [facility] right leg. he has had left AKA with residual pain/sciatica as a result which is relieved with lidocaine patch. he was recently seen in [facility] and was treated with clindamycin and discharged home howveer he never filled his medication adn decided to come to the ED. he was recently seen for similar symptoms and was treated with IV abx. ID was consuletd at that time who was not convinced that this is cellulitis. he was given Zosyn and pain medications in the ED with improvement of his Sx and was endorsed for admission. " Patient presented with above presentation and height above ED course. ESR 44, CRP 12, CPK 222 , MRSA swab - positive , antibiotics were changed to vancomycin. Infectious disease was consulted, as per infectious disease "I have seen this patient on multiple admission and the rash looks unchanged. no associated constitutional symptoms I don't believe this is a cellulitis. I recommend stopp ing all antibiotics and observing ; patient also known to have chronic neuropathy so I think that is what keeps causing his pain Maybe patient might benefit from a dermatology evaluation as outpatient in the future." All antibiotics were stopped and he remained afebrile without any leukocytosis. MRSA decolonization was started and he is to continue with her decolonization at home. Follow-up appointment with dermatology is provided by the nursing staff needs to have close follow-up for the right lower extremity rash. He was counseled extensively on diet, weight loss and nutrition as his A1c was 9 on last admission on march 07 2019. to take log of fingersticks to PCP for further adjustment of his insulin. MARKELL: The right ankle-brachial index and waveforms are normal. The right ankle-brachial index is 1.21. DVT study performed on 03/26/19: Right lower extremity: normal superficial and deep exam. XR/XR tibia fibula RT IMPRESSION: No acute osseous process. Discharge discussed with: patient, nurse, it consultant - Time Spent with Patient Total time spent providing and/or coordinating discharge services: Time spent: Greater than 30 minutes (35) - Discharge Medications Prescriptions: New Mupirocin [Bactroban Oint] 1 appl NS BID 4 Days #1 tube Chlorhexidine Gluconate [Hibiclens] 473 ml TP DAILY #1 liquid Bacitracin/PolymyxinB OINT [Polysporin] 1 appl TP BID #1 tube Thiamine (B-1) [Vitamin B-1] 100 mg PO DAILY #30 tablet Continued Aspirin 81 mg PO DAILY Metoprolol Tartrate [Lopressor] 50 mg PO BID Furosemide [Lasix] 40 mg PO DAILY Loratadine [Allergy Relief] 10 mg PO DAILY Fluticasone Propionate Nasal [Flonase] 50 mcg NS DAILY PRN PRN Reason: Allergy Symptoms Clopidogrel [Plavix] 75 mg PO DAILY Atorvastatin [Lipitor] 40 mg PO DAILY Lidocaine Patch [Lidoderm 5% patch] 1 patch TP DAILY Insulin NPH Human Isophane [Novolin N] 70 unit SQ BID Insulin Regular, Human [Novolin R] 40 unit SQ TIDWM Donepezil [Aricept] 10 mg PO HS tablet Amlodipine Besylate 10 mg PO QAM Docusate [Colace] 200 mg PO BID PRN PRN Reason: Constipation Ferrous Sulfate 325 mg PO BID Levothyroxine Sodium [Euthyrox] 175 mcg PO QAM Hydromorphone (Pf) [Hydromorphone Intrathecal Pump] 1 each IT AD NALOXONE 4 MG Nasal [place] [Narcan] 4 mg NS AD Gabapentin [Neurontin] 100 mg PO BID Losartan Potassium 100 mg PO DAILY Discontinued Clindamycin HCl 300 mg PO BID #14 capsule Home Medications: Aspirin 81 mg PO DAILY 03/18/16 [History] Metoprolol Tartrate [Lopressor] 50 mg PO BID 03/18/16 [History] Furosemide [Lasix] 40 mg PO DAILY 07/30/16 [History] Fluticasone Propionate Nasal [Flonase] 50 mcg NS DAILY PRN 10/23/16 [History] Loratadine [Allergy Relief] 10 mg PO DAILY 10/23/16 [History] Atorvastatin [Lipitor] 40 mg PO DAILY 06/21/17 [History] Clopidogrel [Plavix] 75 mg PO DAILY 06/21/17 [History] Lidocaine Patch [Lidoderm 5% patch] 1 patch TP DAILY 06/21/17 [History] Insulin NPH Human Isophane [Novolin N] 70 unit SQ BID 08/30/17 [History] Insulin Regular, Human [Novolin R] 40 unit SQ TIDWM 08/30/17 [History] Donepezil [Aricept] 10 mg PO HS tablet 04/16/18 [Rx] Amlodipine Besylate 10 mg PO QAM 12/10/18 [History] Docusate [Colace] 200 mg PO BID PRN 12/10/18 [History] Ferrous Sulfate 325 mg PO BID 12/10/18 [History] Hydromorphone (Pf) [Hydromorphone Intrathecal Pump] 1 each IT AD 12/10/18 [History] Levothyroxine Sodium [Euthyrox] 175 mcg PO QAM 12/10/18 [History] NALOXONE 4 MG Nasal [place] [Narcan] 4 mg NS AD 12/10/18 [History] Gabapentin [Neurontin] 100 mg PO BID 01/28/19 [History] Losartan Potassium 100 mg PO DAILY 01/28/19 [History] Bacitracin/PolymyxinB OINT [Polysporin] 1 appl TP BID #1 tube 03/31/19 [Rx] Chlorhexidine Gluconate [Hibiclens] 473 ml TP DAILY #1 liquid 03/31/19 [Rx] Mupirocin [Bactroban Oint] 1 appl NS BID 4 Days #1 tube 03/31/19 [Rx] Thiamine (B-1) [Vitamin B-1] 100 mg PO DAILY #30 tablet 03/31/19 [Rx] Allergies/Adverse Reactions: Allergy/AdvReac Type Severity Reaction Status Date / Time adhesive tape Allergy Hives,RASH Verified 03/27/19 12:13 pregabalin [From Lyrica] Allergy Swelling Verified 03/27/19 12:13 of Lip/Tongue/Throat Sulfa (Sulfonamide Allergy ITCHY Verified 03/27/19 12:13 Antibiotics) Date of admission: 03/28/19 14:46 Primary care physician: PCP NONE Consults: 03/28/19 07:49 Consult to Infectious Diseases [CONS] Routine Consulting Provider: Infectious Disease [place] Reason for Consult: multiple admissions for cellulitis, again here with cellulitis of the right lower extremity, ESR 46, CRP 12 Call Completed: No - Constitutional Vitals: Temp Pulse Resp BP Pulse Ox 97.9 F 52 18 125/68 93 03/31/19 04:13 03/31/19 04:13 03/31/19 04:13 03/31/19 04:13 03/31/19 04:13 Exam: General: Patient is alert, oriented, no acute distress, obese Head: atraumatic, normocephalic, Eye: normal appearance, PERRL, no scleral icterus, no conjunctival injection ENT: mucous membranes moist, normal external ear exam Neck: normal inspection, trachea midline, full ROM, no carotid bruits Chest: normal inspection, symmetric chest rise Respiratory: Good respiratory effort. Bilateral breath sounds are clear without wheezing, crackles, or rhonchi. Cardiovascular: Regular rate and rhythm. s1 and s2 No clicks, rubs, gallops, or murmors. Abdomen: Bowel sounds present normoactive x-4 quadrants. Abdomen is soft, nondistended. no Epigastric tenderness. No guarding or rebound. No organomegaly noted, obese musculoskeletal: Left AKA, RLE with rash above jayda ankle up to mid mao. erythema stable, tenderness has improved. Skin: warm, dry, intact. Neuro: Alert and oriented x 3 no focal deficit Psych: Patient's affect is normal - Patient Status Disposition: Home, Self-Care Condition: Good Functional capacity at discharge: uses cane/walker Overall status at discharge: patient is progressing back to baseline - Discharge Instructions Follow Up With: Yuliya Friedman CNP [Advanced Practice Nurse] - 04/02/19 2:30 pm Sergio Burgos MD [Partnered Physician] - 04/02/19 10:00 am - Diet and Activity Activity: increase activity as tolerated Diet: diabetic diet (cardiac )
--- NOTE | 2019-03-31 12:18 | Physician Discharge Referral ---
Home Health/Hosp Referral Info Transfer to: Home Health Provider in Charge Post Discharge: PCP - Diagnosis (1) Rash Status: Acute (2) Uncontrolled diabetes mellitus Status: Acute (3) Sciatica Status: Chronic (4) Obesity (BMI 30.0-34.9) Status: Acute (5) CAD (coronary artery disease) Status: Acute (6) DVT prophylaxis Status: Acute - Respiratory Orders Smoking Cessation: Smoking cessation has been advised. For more information, call the [place] Tobacco Quit Line at 1-122-QACQ-NOW. - Services Needed Following services are medically necessary services: Nursing, Home Health Aide, Physical Therapy - Transfer Medications Prescriptions: Mupirocin [Bactroban Oint] 1 appl NS BID 4 Days #1 tube Chlorhexidine Gluconate [Hibiclens] 473 ml TP DAILY #1 liquid Bacitracin/PolymyxinB OINT [Polysporin] 1 appl TP BID #1 tube Thiamine (B-1) [Vitamin B-1] 100 mg PO DAILY #30 tablet Home Medications: Aspirin 81 mg PO DAILY 03/18/16 [History] Metoprolol Tartrate [Lopressor] 50 mg PO BID 03/18/16 [History] Furosemide [Lasix] 40 mg PO DAILY 07/30/16 [History] Fluticasone Propionate Nasal [Flonase] 50 mcg NS DAILY PRN 10/23/16 [History] Loratadine [Allergy Relief] 10 mg PO DAILY 10/23/16 [History] Atorvastatin [Lipitor] 40 mg PO DAILY 06/21/17 [History] Clopidogrel [Plavix] 75 mg PO DAILY 06/21/17 [History] Lidocaine Patch [Lidoderm 5% patch] 1 patch TP DAILY 06/21/17 [History] Insulin NPH Human Isophane [Novolin N] 70 unit SQ BID 08/30/17 [History] Insulin Regular, Human [Novolin R] 40 unit SQ TIDWM 08/30/17 [History] Donepezil [Aricept] 10 mg PO HS tablet 04/16/18 [Rx] Amlodipine Besylate 10 mg PO QAM 12/10/18 [History] Docusate [Colace] 200 mg PO BID PRN 12/10/18 [History] Ferrous Sulfate 325 mg PO BID 12/10/18 [History] Hydromorphone (Pf) [Hydromorphone Intrathecal Pump] 1 each IT AD 12/10/18 [History] Levothyroxine Sodium [Euthyrox] 175 mcg PO QAM 12/10/18 [History] NALOXONE 4 MG Nasal [place] [Narcan] 4 mg NS AD 12/10/18 [History] Gabapentin [Neurontin] 100 mg PO BID 01/28/19 [History] Losartan Potassium 100 mg PO DAILY 01/28/19 [History] Bacitracin/PolymyxinB OINT [Polysporin] 1 appl TP BID #1 tube 03/31/19 [Rx] Chlorhexidine Gluconate [Hibiclens] 473 ml TP DAILY #1 liquid 03/31/19 [Rx] Mupirocin [Bactroban Oint] 1 appl NS BID 4 Days #1 tube 03/31/19 [Rx] Thiamine (B-1) [Vitamin B-1] 100 mg PO DAILY #30 tablet 03/31/19 [Rx] Allergies/Adverse Reactions: Allergy/AdvReac Type Severity Reaction Status Date / Time adhesive tape Allergy Hives,RASH Verified 03/27/19 12:13 pregabalin [From Lyrica] Allergy Swelling Verified 03/27/19 12:13 of Lip/Tongue/Throat Sulfa (Sulfonamide Allergy ITCHY Verified 03/27/19 12:13 Antibiotics) Certification: Further, I certify that my clinical findings support that this patient is homebound (i.e. absences from home require considerable and taxing effort and are for medical reasons or denominational services or infrequently or short duration when for other reasons) because: Homebound Reason: Patient requires assistance of a person or device to safely leave home Attestation: My signature below is to certify that this patient is under my care and that I, or nurse practitioner, or a physician's post production assistant working with me, has a [id number] encounter with this patient.
== END 2019-03-31 14:10 | disposition home or self-care (01) | DRG 603 ==
LOC: 3ANU 12:04 → EMEROOARM 12:04 → SUATTDRO 17:12 → 3ANU 18:21
PROVIDERS: ADMIT Internal Medicine Nephrology; ATTEND Internal Medicine

== ENCOUNTER 2019-10-11 21:27 | Inpatient (IN) ==
[2019-10-11 22:20] LABS: Bilirubin,Urine Negative (Negative); Blood,Urine Negative (Negative); Clarity,Urine Clear (Clear); Color,Urine Yellow (Yellow); Glucose,Urine (UA) >=1000 mg/dL (Normal); Ketones,Urine Negative (Negative); Leukocyte Esterase,Urine Negative (Negative); Nitrite,Urine Negative (Negative); PH,Urine 7.5 pH Units (5.0-8.0); Protein,Urine Negative (Neg-Trace); Specific Gravity,Urine 1.027 (1.010-1.025); Urobilinogen,Urine Normal (Normal)
[2019-10-11 22:40] LABS: Basophils # 0.1 K/mcL (0.0-0.2); Basophils % 0.9 %; Eosinophils # 0.3 K/mcL (0.0-0.6); Eosinophils % 3.2 %; Hematocrit 34.2 % (37.5-50.1); Hemoglobin 11.8 g/dL (12.9-16.9); Immature Granulocytes % 1.7 % (0-4); Lymphocytes # 1.2 K/mcL (0.6-4.6); Lymphocytes % 13.3 %; Mean Corpuscular HGB Conc 34.5 g/dL (31.6-35.5); Mean Corpuscular Hemoglobin 32.6 pg (28.0-33.3); Mean Corpuscular Volume 94.5 fL (83.0-100.0); Mean Platelet Volume 12.2 fL (9.4-12.4); Monocytes # 0.8 K/mcL (0.0-1.3); Monocytes % 8.6 %; Neutrophils # 6.6 K/mcL (1.6-8.9); Platelet Count 104 K/mcL (140-400); Red Blood Count 3.62 M/mcL (4.19-5.50); Red Cell Distribution Width 14.3 % (11.5-14.5); Segmented Neutrophils % 72.3 %; White Blood Count 9.2 K/mcL (4.3-11.1)
[2019-10-11] MEDS ORDERED: 0.9 % Sodium Chloride 1,000 ML IVC STA ×2 (22:42→23:31)
[2019-10-11 22:53] LABS: VBG HCO3 30 mEq/L (21-27); VBG PCO2 43 mmHg (41-51); VBG PH 7.45 pH Units (7.32-7.42); VBG PO2 155 mmHg (25-50)
[2019-10-11 23:01] LABS: Alanine Aminotransferase 31 Units/L (7-52); Albumin 3.7 g/dL (3.5-5.7); Albumin/Globulin Ratio 1.1 (1.1-2.2); Alkaline Phosphatase 73 Units/L (34-104); Aspartate Amino Transferase 39 Units/L (13-39); BUN/Creatinine Ratio 29 (6-26); Bilirubin,Direct 0.1 mg/dL (0.0-0.2); Bilirubin,Indirect 0.4 mg/dL (0.0-1.0); Bilirubin,Total 0.5 mg/dL (0.3-1.0); Blood Urea Nitrogen 35 mg/dL (8-23); Carbon Dioxide 29 mEq/L (23-29); Chloride 97 mEq/L (98-107); Globulin 3.3 g/dL (2.4-3.5); Glucose 638 mg/dL (70-105); Magnesium 1.8 mg/dL (1.6-2.6); Osmolality,Calculated 320 (280-300); Potassium 4.3 mEq/L (3.5-5.1); Sodium 136 mEq/L (136-145); eGFR For African Americans > 60 (> 60); eGFR For Non-African Americans > 60 (> 60)
[2019-10-11] MEDS ORDERED: Insulin Human Regular 10 UNIT in 0.9 % Sodium Chloride 10 ML IV ONE (23:28)
[2019-10-12] MEDS ORDERED: Insulin Regular, Human 100 UNIT/ML IV PRN ×4 (01:27→05:19)
[2019-10-12] MEDS ORDERED: *HR* Dextrose 50 % in Water (Syg) 50 ML SYRINGE IVP PRN ×6 (01:27→11:55)
[2019-10-12] MEDS ORDERED: D5% in 0.45% NACL w KCl 20 MEQ/1,000 ML MLS IVC PRN ×2 (01:27→04:16)
[2019-10-12] MEDS ORDERED: Insulin Human Regular 100 UNIT in 0.9 % Sodium Chloride 100 ML IVC SCH ×4 (01:30→05:30)
[2019-10-12] MEDS ORDERED: 0.45 % Sodium Chloride w/KCl 20 MEQ/1,000 ML MLS IVC PRN ×3 (01:30→05:30)
[2019-10-12] MEDS ORDERED: 0.9 % Sodium Chloride 1,000 ML ONE (02:53)
[2019-10-12] MEDS ORDERED: Naloxone 0.4 MG/ML INJ IVP PRN (04:16)
[2019-10-12] MEDS ORDERED: D5% in 0.45% NACL 1,000 ML IVC PRN ×2 (04:16→05:19)
[2019-10-12] MEDS ORDERED: 0.9 % Sodium Chloride 1,000 ML IVC SCH (04:30)
[2019-10-12 06:42] LABS: Immature Reticulocyte % 18.4 % (11.0-38.0); Retculocyte # 0.13 M/mcL (0.05-0.10); Reticulocyte % 3.6 % (1.6-2.8)
[2019-10-12 06:49] LABS: Basophils # 0.1 K/mcL (0.0-0.2); Eosinophils # 0.3 K/mcL (0.0-0.6); Eosinophils % 3.2 %; Hematocrit 33.3 % (37.5-50.1); Hemoglobin 11.2 g/dL (12.9-16.9); Immature Granulocytes % 1.7 % (0-4); Lymphocytes # 1.2 K/mcL (0.6-4.6); Lymphocytes % 13.6 %; Mean Corpuscular HGB Conc 33.6 g/dL (31.6-35.5); Mean Corpuscular Hemoglobin 31.9 pg (28.0-33.3); Mean Corpuscular Volume 94.9 fL (83.0-100.0); Mean Platelet Volume 12.2 fL (9.4-12.4); Monocytes # 0.7 K/mcL (0.0-1.3); Monocytes % 8.1 %; Neutrophils # 6.6 K/mcL (1.6-8.9); Platelet Count 109 K/mcL (140-400); Red Blood Count 3.51 M/mcL (4.19-5.50); Red Cell Distribution Width 14.6 % (11.5-14.5); Segmented Neutrophils % 72.4 %; White Blood Count 9.1 K/mcL (4.3-11.1)
[2019-10-12 06:59] LABS: Magnesium 1.8 mg/dL (1.6-2.6); Phosphorous 2.5 mg/dL (2.7-4.5)
[2019-10-12 07:00] LABS: % Iron Saturation 23 % (20-55); BUN/Creatinine Ratio 27 (6-26); Blood Urea Nitrogen 29 mg/dL (8-23); Calcium 8.6 mg/dL (8.6-10.3); Carbon Dioxide 28 mEq/L (23-29); Chloride 105 mEq/L (98-107); Glucose 300 mg/dL (70-105); Iron 61 mcg/dL (65-175); Osmolality,Calculated 309 (280-300); Potassium 3.9 mEq/L (3.5-5.1); Sodium 141 mEq/L (136-145); Transferrin 192 mg/dL (203-362); eGFR For African Americans > 60 (> 60); eGFR For Non-African Americans > 60 (> 60)
[2019-10-12 07:23] LABS: Folate 13.5 ng/mL (3.0-16.0)
[2019-10-12 07:46] LABS: Ferritin 84 ng/mL (20-250)
[2019-10-12 07:52] LABS: Estimated Average Glucose 197 mg/dl
[2019-10-12] MEDS ORDERED: 0.9 % Sodium Chloride w KCl 20 MEQ/1,000 ML MLS IVC ONE (08:50)
[2019-10-12] MEDS: amLODIPine 5 MG TABLET PO SCH (09:59)
[2019-10-12] MEDS: Gabapentin 100 MG CAPSULE PO SCH ×2 (10:00→20:25)
[2019-10-12] MEDS: Aspirin 81 MG TAB.CHEW PO SCH (10:00)
[2019-10-12 10:33] LABS: BUN/Creatinine Ratio 25 (6-26); Blood Urea Nitrogen 25 mg/dL (8-23); Calcium 8.7 mg/dL (8.6-10.3); Carbon Dioxide 25 mEq/L (23-29); Chloride 108 mEq/L (98-107); Glucose 99 mg/dL (70-105); Osmolality,Calculated 298 (280-300); Potassium 3.9 mEq/L (3.5-5.1); Sodium 142 mEq/L (136-145); eGFR For African Americans > 60 (> 60); eGFR For Non-African Americans > 60 (> 60)
[2019-10-12] MEDS ORDERED: Insulin DETEMIR 100 UNIT/ML X5UNITS SQ SCH (11:55)
[2019-10-12] MEDS ORDERED: Dextrose Gel 15 GM/37.5 ML TUBE PO PRN ×2 (11:55)
[2019-10-12] MEDS ORDERED: D5% in Water 1,000 ML IVC PRN (11:55)
[2019-10-12] MEDS: Insulin LISPRO 300 UNITS/3 ML VIAL SQ SCH ×2 (17:14→20:26)
[2019-10-12] MEDS: Insulin DETEMIR 100 UNIT/ML X5UNITS SQ SCH (20:25)
[2019-10-13 02:08] LABS: BUN/Creatinine Ratio 20 (6-26); Blood Urea Nitrogen 21 mg/dL (8-23); Carbon Dioxide 26 mEq/L (23-29); Chloride 103 mEq/L (98-107); Glucose 259 mg/dL (70-105); Osmolality,Calculated 296 (280-300); Phosphorous 2.5 mg/dL (2.7-4.5); Potassium 4.3 mEq/L (3.5-5.1); Sodium 137 mEq/L (136-145); eGFR For African Americans > 60 (> 60); eGFR For Non-African Americans > 60 (> 60)
[2019-10-13] MEDS: amLODIPine 5 MG TABLET PO SCH (08:52)
[2019-10-13] MEDS: Aspirin 81 MG TAB.CHEW PO SCH (08:52)
[2019-10-13] MEDS: Insulin LISPRO 300 UNITS/3 ML VIAL SQ SCH ×6 (08:52→20:32)
[2019-10-13] MEDS: Gabapentin 100 MG CAPSULE PO SCH ×2 (08:52→20:29)
[2019-10-13] MEDS: Insulin DETEMIR 100 UNIT/ML X5UNITS SQ SCH (08:53)
[2019-10-13 20:19] LABS: Amphetamines NEGATIVE ng/mL (Cutoff 30); Barbiturates NEGATIVE ng/mL (Cutoff 75); Benzodiazepines NEGATIVE ng/mL (Cutoff 75); Buprenorphine NEGATIVE ng/mL (Cutoff 1); Cocaine NEGATIVE ng/mL (Cutoff 30); Methadone NEGATIVE ng/mL (Cutoff 40); Methamphetamines NEGATIVE ng/mL (Cutoff 30); Opiates NEGATIVE ng/mL (Cutoff 30); Phencyclidine NEGATIVE ng/mL (Cutoff 15)
[2019-10-13] MEDS ORDERED: Insulin DETEMIR 100 UNIT/ML X5UNITS SQ SCH (21:00)
[2019-10-14 08:05] LABS: BUN/Creatinine Ratio 19 (6-26); Blood Urea Nitrogen 18 mg/dL (8-23); Calcium 9.8 mg/dL (8.6-10.3); Carbon Dioxide 28 mEq/L (23-29); Chloride 98 mEq/L (98-107); Glucose 262 mg/dL (70-105); Osmolality,Calculated 295 (280-300); Phosphorous 3.3 mg/dL (2.7-4.5); Potassium 4.3 mEq/L (3.5-5.1); Sodium 137 mEq/L (136-145); eGFR For African Americans > 60 (> 60); eGFR For Non-African Americans > 60 (> 60)
[2019-10-14] MEDS: amLODIPine 5 MG TABLET PO SCH (08:06)
[2019-10-14] MEDS: Aspirin 81 MG TAB.CHEW PO SCH (08:07)
[2019-10-14] MEDS: Gabapentin 100 MG CAPSULE PO SCH ×2 (08:07→21:09)
[2019-10-14] MEDS: Insulin LISPRO 300 UNITS/3 ML VIAL SQ SCH ×8 (08:08→21:32)
[2019-10-14] MEDS: Insulin DETEMIR 100 UNIT/ML X5UNITS SQ SCH ×2 (08:39→21:10)
[2019-10-15] MEDS ORDERED: *HR* Dextrose 50 % in Water (Syg) 50 ML SYRINGE IVP PRN (07:07)
[2019-10-15] MEDS: amLODIPine 5 MG TABLET PO SCH (08:10)
[2019-10-15] MEDS: Gabapentin 100 MG CAPSULE PO SCH (08:10)
[2019-10-15] MEDS: Aspirin 81 MG TAB.CHEW PO SCH (08:10)
[2019-10-15] MEDS: Insulin DETEMIR 100 UNIT/ML X5UNITS SQ SCH (08:10)
[2019-10-15] MEDS: Insulin LISPRO 300 UNITS/3 ML VIAL SQ SCH ×4 (08:11→16:20)
[2019-10-15 10:33] LABS: BUN/Creatinine Ratio 24 (6-26); Blood Urea Nitrogen 28 mg/dL (8-23); Carbon Dioxide 28 mEq/L (23-29); Chloride 96 mEq/L (98-107); Glucose 400 mg/dL (70-105); Osmolality,Calculated 298 (280-300); Potassium 4.1 mEq/L (3.5-5.1); Sodium 133 mEq/L (136-145); eGFR For African Americans > 60 (> 60); eGFR For Non-African Americans > 60 (> 60)
[2019-10-15] MEDS ORDERED: Insulin LISPRO 300 UNITS/3 ML VIAL SQ SCH (12:00)
[2019-10-15 14:37] VITALS: BP 151/78
[2019-10-15] MEDS ORDERED: Insulin DETEMIR 100 UNIT/ML X5UNITS SQ SCH (21:00)
== END 2019-10-15 17:28 | disposition home or self-care (01) | DRG 638 ==
LOC: 2ANU 21:27 → EMEROOARM 21:27 → 2ANU 10-12 02:25 → SUATTDRO 10-12 03:41 → 2NNU 10-12 05:25 → 2ANU 10-14 18:05
PROVIDERS: ADMIT Internal Medicine; ATTEND Internal Medicine

== ENCOUNTER 2019-11-21 13:36 | Observation (INO) ==
[2019-11-21 14:49] LABS: Hemoglobin 12.5 g/dL (12.9-16.9); Immature Granulocytes % 1.3 % (0-4); Mean Corpuscular Volume 94.9 fL (83.0-100.0)
[2019-11-21 14:51] LABS: Basophils # 0.1 K/mcL (0.0-0.2); Eosinophils # 0.6 K/mcL (0.0-0.6); Eosinophils % 6.5 %; Hematocrit 37.2 % (37.5-50.1); Immature Platelets 8.9 % (1.1-6.1); Lymphocytes # 1.4 K/mcL (0.6-4.6); Lymphocytes % 15.9 %; Mean Corpuscular HGB Conc 33.6 g/dL (31.6-35.5); Mean Corpuscular Hemoglobin 31.9 pg (28.0-33.3); Mean Platelet Volume 11.9 fL (9.4-12.4); Monocytes # 0.6 K/mcL (0.0-1.3); Monocytes % 6.8 %; Neutrophils # 5.9 K/mcL (1.6-8.9); Red Blood Count 3.92 M/mcL (4.19-5.50); Red Cell Distribution Width 14.6 % (11.5-14.5); Segmented Neutrophils % 68.5 %; White Blood Count 8.6 K/mcL (4.3-11.1)
[2019-11-21 14:53] LABS: Platelet Count 89 K/mcL (140-400)
[2019-11-21 15:24] LABS: BUN/Creatinine Ratio 23 (6-26); Blood Urea Nitrogen 26 mg/dL (8-23); Carbon Dioxide 31 mEq/L (23-29); Chloride 100 mEq/L (98-107); Glucose 168 mg/dL (70-105); Osmolality,Calculated 303 (280-300); Potassium 4.5 mEq/L (3.5-5.1); Sodium 142 mEq/L (136-145); eGFR For African Americans > 60 (> 60); eGFR For Non-African Americans > 60 (> 60)
[2019-11-21] MEDS ORDERED: Piperacillin/Tazobactam 3.375 GM in 0.9 % Sodium Chloride Mini Bag 100 ML IVPB ONE (16:27)
[2019-11-21] MEDS ORDERED: Naloxone 0.4 MG/ML INJ IVP PRN (16:47)
[2019-11-21] MEDS ORDERED: D5% in Water 1,000 ML IVC PRN (18:49)
[2019-11-21] MEDS ORDERED: Dextrose Gel 15 GM/37.5 ML TUBE PO PRN ×2 (18:49)
[2019-11-21] MEDS ORDERED: *HR* Dextrose 50 % in Water (Syg) 50 ML SYRINGE IVP PRN (18:49)
[2019-11-21] MEDS: *HR* Heparin 5,000 UNIT/ML VIAL SQ SCH (23:42)
[2019-11-21] MEDS: Piperacillin/Tazobactam 3.375 GM in 0.9 % Sodium Chloride Mini Bag 100 ML IVPB SCH (23:43)
[2019-11-22] MEDS ORDERED: *HR* HYDROcodone/Acet 5/325 mg TABLET PO PRN (00:53)
[2019-11-22] MEDS ORDERED: *HR* HYDROmorphone (PF) 1 MG/ML SYRINGE IVP PRN (00:54)
[2019-11-22 02:08] LABS: Mean Platelet Volume 12.4 fL (9.4-12.4)
[2019-11-22 02:10] LABS: Basophils # 0.1 K/mcL (0.0-0.2); Basophils % 0.9 %; Eosinophils # 0.5 K/mcL (0.0-0.6); Eosinophils % 6.8 %; Hematocrit 33.6 % (37.5-50.1); Hemoglobin 11.4 g/dL (12.9-16.9); Immature Granulocytes % 1.2 % (0-4); Immature Platelets 8.5 % (1.1-6.1); Lymphocytes # 1.5 K/mcL (0.6-4.6); Lymphocytes % 19.3 %; Mean Corpuscular HGB Conc 33.9 g/dL (31.6-35.5); Mean Corpuscular Hemoglobin 31.8 pg (28.0-33.3); Mean Corpuscular Volume 93.6 fL (83.0-100.0); Monocytes # 0.6 K/mcL (0.0-1.3); Monocytes % 8.1 %; Neutrophils # 4.8 K/mcL (1.6-8.9); Red Blood Count 3.59 M/mcL (4.19-5.50); Red Cell Distribution Width 14.2 % (11.5-14.5); Segmented Neutrophils % 63.7 %; White Blood Count 7.5 K/mcL (4.3-11.1)
[2019-11-22 02:18] LABS: Platelet Count 80 K/mcL (140-400)
[2019-11-22 02:33] LABS: BUN/Creatinine Ratio 20 (6-26); Blood Urea Nitrogen 21 mg/dL (8-23); Calcium 9.4 mg/dL (8.6-10.3); Carbon Dioxide 28 mEq/L (23-29); Chloride 102 mEq/L (98-107); Glucose 238 mg/dL (70-105); Osmolality,Calculated 295 (280-300); Potassium 4.4 mEq/L (3.5-5.1); Sodium 137 mEq/L (136-145); eGFR For African Americans > 60 (> 60); eGFR For Non-African Americans > 60 (> 60)
[2019-11-22] MEDS: *HR* Heparin 5,000 UNIT/ML VIAL SQ SCH ×3 (05:15→20:58)
[2019-11-22] MEDS ORDERED: Fluticasone Propionate Nasal 50 MCG/SPRAY BOTTLE NS PRN (06:59)
[2019-11-22] MEDS: Piperacillin/Tazobactam 3.375 GM in 0.9 % Sodium Chloride Mini Bag 100 ML IVPB SCH ×2 (08:09→15:56)
[2019-11-22] MEDS: (Hydromorphone (Pf) [Hydromorphone Intrathecal Pump] IT SCH (08:15)
[2019-11-22] MEDS: Furosemide 40 MG TABLET PO SCH (08:15)
[2019-11-22] MEDS: Thiamine (B-1) 100 MG TABLET PO SCH (08:15)
[2019-11-22] MEDS: Gabapentin 100 MG CAPSULE PO SCH ×2 (08:15→20:57)
[2019-11-22] MEDS: amLODIPine 5 MG TABLET PO SCH (08:15)
[2019-11-22] MEDS: Loratadine 10 MG TABLET PO SCH (08:16)
[2019-11-22] MEDS: Aspirin 81 MG TAB.CHEW PO SCH (08:16)
[2019-11-22] MEDS: Insulin NPH 100 UNIT/ML (x5UNIT) SQ SCH ×2 (08:21→22:58)
[2019-11-22] MEDS: Insulin LISPRO 300 UNITS/3 ML VIAL SQ SCH ×6 (08:23→17:24)
[2019-11-22] MEDS ORDERED: Insulin Regular, Human 100 UNIT/ML SQ SCH (09:00)
[2019-11-22] MEDS: Orphenadrine 100 MG TABLET.ER PO PRN ×2 (09:54→17:23)
[2019-11-22] MEDS ORDERED: Piperacillin/Tazobactam 3.375 GM VIAL ONE (15:47)
[2019-11-22] MEDS ORDERED: 0.9 % Sodium Chloride Mini Bag 100 ML ONE (15:49)
[2019-11-23] MEDS: Piperacillin/Tazobactam 3.375 GM in 0.9 % Sodium Chloride Mini Bag 100 ML IVPB SCH ×2 (00:33→09:26)
[2019-11-23] MEDS: Orphenadrine 100 MG TABLET.ER PO PRN (00:40)
[2019-11-23] MEDS: *HR* Heparin 5,000 UNIT/ML VIAL SQ SCH (05:45)
[2019-11-23] MEDS: (Hydromorphone (Pf) [Hydromorphone Intrathecal Pump] IT SCH (06:20)
[2019-11-23 07:11] LABS: Basophils # 0.1 K/mcL (0.0-0.2); Basophils % 1.3 %; Eosinophils # 0.7 K/mcL (0.0-0.6); Eosinophils % 6.8 %; Hematocrit 34.6 % (37.5-50.1); Hemoglobin 12.1 g/dL (12.9-16.9); Immature Granulocytes % 1.9 % (0-4); Immature Platelets 11.2 % (1.1-6.1); Lymphocytes # 1.8 K/mcL (0.6-4.6); Lymphocytes % 18.5 %; Mean Corpuscular Hemoglobin 31.9 pg (28.0-33.3); Mean Corpuscular Volume 91.3 fL (83.0-100.0); Mean Platelet Volume 12.1 fL (9.4-12.4); Monocytes # 0.8 K/mcL (0.0-1.3); Monocytes % 8.1 %; Neutrophils # 6.1 K/mcL (1.6-8.9); Red Blood Count 3.79 M/mcL (4.19-5.50); Red Cell Distribution Width 14.3 % (11.5-14.5); Segmented Neutrophils % 63.4 %; White Blood Count 9.6 K/mcL (4.3-11.1)
[2019-11-23 07:28] LABS: BUN/Creatinine Ratio 17 (6-26); Blood Urea Nitrogen 21 mg/dL (8-23); Calcium 9.7 mg/dL (8.6-10.3); Carbon Dioxide 29 mEq/L (23-29); Chloride 99 mEq/L (98-107); Glucose 159 mg/dL (70-105); Osmolality,Calculated 290 (280-300); Potassium 4.3 mEq/L (3.5-5.1); Sodium 137 mEq/L (136-145); eGFR For African Americans > 60 (> 60); eGFR For Non-African Americans 56 (> 60)
[2019-11-23 07:49] LABS: Platelet Count 92 K/mcL (140-400); Platelet Estimate Decreased (Normal)
[2019-11-23] MEDS: Thiamine (B-1) 100 MG TABLET PO SCH (09:29)
[2019-11-23] MEDS: amLODIPine 5 MG TABLET PO SCH (09:30)
[2019-11-23] MEDS: Loratadine 10 MG TABLET PO SCH (09:30)
[2019-11-23] MEDS: Furosemide 40 MG TABLET PO SCH (09:30)
[2019-11-23] MEDS: Gabapentin 100 MG CAPSULE PO SCH (09:30)
[2019-11-23] MEDS: Aspirin 81 MG TAB.CHEW PO SCH (09:30)
[2019-11-23] MEDS: Insulin NPH 100 UNIT/ML (x5UNIT) SQ SCH (09:33)
[2019-11-23] MEDS: Insulin LISPRO 300 UNITS/3 ML VIAL SQ SCH ×3 (09:34→12:01)
[2019-11-23 11:43] VITALS: BP 126/97
[2019-11-25 12:41] LABS: Acinetobacter baumannii by PCR Not Detected (Not Detect); Candida albicans by PCR Not Detected (Not Detect); Candida glabrata by PCR Not Detected (Not Detect); Candida krusei by PCR Not Detected (Not Detect); Candida parapsilosis by PCR Not Detected (Not Detect); Candida tropicalis by PCR Not Detected (Not Detect); Enterobacter cloacae Cmplx PCR Not Detected (Not Detect); Enterobacteriaceae by PCR Not Detected (Not Detect); Enterococcus by PCR Not Detected (Not Detect); Escherichia coli by PCR Not Detected (Not Detect); Klebsiella oxytoca by PCR Not Detected (Not Detect); Klebsiella pneumoniae by PCR Not Detected (Not Detect); Proteus by PCR Not Detected (Not Detect); Pseudomonas aeruginosa by PCR Not Detected (Not Detect); Serratia marcescens by PCR Not Detected (Not Detect); Staphylococcus aureus by PCR Not Detected (Not Detect); Staphylococcus by PCR Not Detected (Not Detect); Streptococcus agalactiae(B)PCR Not Detected (Not Detect); Streptococcus by PCR Not Detected (Not Detect); Streptococcus pneumoniae PCR Not Detected (Not Detect); Streptococcus pyogenes (A) PCR Not Detected (Not Detect); blaKPC Carbapenem-Resist Gene Not Detected (Not Detect); mecA Methicillin-Resist Gene Not Detected (Not Detect); vanA/B Vancomycin-Resist Genes Not Detected (Not Detect)
== END 2019-11-23 15:00 | disposition home or self-care (01) ==
LOC: EMEROOARM 13:36 → 3ANU 13:36 → SUATTDRO 16:44 → 3ANU 18:51
PROVIDERS: ADMIT Internal Medicine; ATTEND Internal Medicine

== ENCOUNTER 2019-12-13 12:02 | Observation (INO) ==
[2019-12-13 12:35] LABS: Basophils # 0.1 K/mcL (0.0-0.2); Basophils % 0.7 %; Eosinophils # 0.7 K/mcL (0.0-0.6); Eosinophils % 7.8 %; Hematocrit 34.7 % (37.5-50.1); Hemoglobin 11.6 g/dL (12.9-16.9); Lymphocytes # 1.6 K/mcL (0.6-4.6); Lymphocytes % 16.7 %; Mean Corpuscular HGB Conc 33.4 g/dL (31.6-35.5); Mean Corpuscular Hemoglobin 31.7 pg (28.0-33.3); Mean Corpuscular Volume 94.8 fL (83.0-100.0); Mean Platelet Volume 12.3 fL (9.4-12.4); Monocytes # 0.7 K/mcL (0.0-1.3); Monocytes % 7.6 %; Neutrophils # 6.2 K/mcL (1.6-8.9); Red Blood Count 3.66 M/mcL (4.19-5.50); Red Cell Distribution Width 13.8 % (11.5-14.5); Segmented Neutrophils % 66.2 %; White Blood Count 9.4 K/mcL (4.3-11.1)
[2019-12-13 12:36] LABS: Platelet Count 96 K/mcL (140-400)
[2019-12-13] MEDS ORDERED: Morphine Sulfate 2 MG/ML SYRINGE IVP ONE (12:59)
[2019-12-13 13:02] LABS: Calcium 9.2 mg/dL (8.6-10.3); Potassium 4.1 mEq/L (3.5-5.1)
[2019-12-13] MEDS ORDERED: Naloxone 0.4 MG/ML INJ IVP PRN (15:10)
[2019-12-13] MEDS ORDERED: Ondansetron ODT 4 MG TAB.RAPDIS SL PRN (15:10)
[2019-12-13] MEDS ORDERED: Acetaminophen 325 MG TABLET PO PRN (15:10)
[2019-12-13] MEDS ORDERED: *HR* Dextrose 50 % in Water (Syg) 50 ML SYRINGE IVP PRN (15:14)
[2019-12-13] MEDS ORDERED: Dextrose Gel 15 GM/37.5 ML TUBE PO PRN ×2 (15:14)
[2019-12-13] MEDS ORDERED: D5% in Water 1,000 ML IVC PRN (15:14)
[2019-12-13] MEDS ORDERED: 0.9 % Sodium Chloride 1,000 ML IVC SCH (15:15)
[2019-12-13] MEDS: Piperacillin/Tazobactam 3.375 GM in 0.9 % Sodium Chloride Mini Bag 100 ML IVPB SCH ×2 (17:59→23:35)
[2019-12-13] MEDS: Insulin LISPRO 300 UNITS/3 ML VIAL SQ SCH ×3 (18:00→20:06)
[2019-12-13] MEDS: *HR* HYDROcodone/Acet 5/325 mg TABLET PO PRN (18:01)
[2019-12-13] MEDS: *HR* Heparin 5,000 UNIT/ML VIAL SQ SCH (18:02)
[2019-12-13] MEDS: Gabapentin 100 MG CAPSULE PO SCH (20:06)
[2019-12-13] MEDS: Baclofen 10 MG TABLET PO SCH (20:06)
[2019-12-13] MEDS: Insulin DETEMIR 100 UNIT/ML X5UNITS SQ SCH (20:11)
[2019-12-14] MEDS: *HR* Heparin 5,000 UNIT/ML VIAL SQ SCH ×2 (05:52→17:53)
[2019-12-14] MEDS: Piperacillin/Tazobactam 3.375 GM in 0.9 % Sodium Chloride Mini Bag 100 ML IVPB SCH ×3 (07:53→23:19)
[2019-12-14 07:56] LABS: Hematocrit 37.6 % (37.5-50.1); Immature Platelets 9.5 % (1.1-6.1); Mean Corpuscular HGB Conc 31.9 g/dL (31.6-35.5); Mean Corpuscular Hemoglobin 31.3 pg (28.0-33.3); Mean Corpuscular Volume 98.2 fL (83.0-100.0); Mean Platelet Volume 11.9 fL (9.4-12.4); Red Blood Count 3.83 M/mcL (4.19-5.50); White Blood Count 10.7 K/mcL (4.3-11.1)
[2019-12-14] MEDS: *HR* HYDROcodone/Acet 5/325 mg TABLET PO PRN ×3 (07:57→23:19)
[2019-12-14] MEDS: Insulin LISPRO 300 UNITS/3 ML VIAL SQ SCH ×7 (07:57→20:20)
[2019-12-14] MEDS: Furosemide 40 MG TABLET PO SCH (07:59)
[2019-12-14] MEDS: Aspirin 81 MG TAB.CHEW PO SCH (07:59)
[2019-12-14] MEDS: Insulin DETEMIR 100 UNIT/ML X5UNITS SQ SCH ×2 (08:00→20:21)
[2019-12-14] MEDS: Gabapentin 100 MG CAPSULE PO SCH ×2 (08:00→20:19)
[2019-12-14] MEDS: amLODIPine 5 MG TABLET PO SCH (08:00)
[2019-12-14] MEDS: Baclofen 10 MG TABLET PO SCH ×3 (08:00→20:17)
[2019-12-14 08:15] LABS: Calcium 9.2 mg/dL (8.6-10.3); Potassium 4.2 mEq/L (3.5-5.1)
[2019-12-14] MEDS ORDERED: 0.9 % Sodium Chloride 1,000 ML IVC SCH (11:15)
[2019-12-14] MEDS ORDERED: Aminoglycoside Consult 1 EACH MC ONE (11:33)
[2019-12-15] MEDS: *HR* Heparin 5,000 UNIT/ML VIAL SQ SCH ×2 (05:31→17:51)
[2019-12-15 08:08] LABS: Hemoglobin 11.6 g/dL (12.9-16.9)
[2019-12-15 08:10] LABS: Hematocrit 34.4 % (37.5-50.1); Immature Platelets 9.2 % (1.1-6.1); Mean Corpuscular HGB Conc 33.7 g/dL (31.6-35.5); Mean Corpuscular Hemoglobin 31.8 pg (28.0-33.3); Mean Corpuscular Volume 94.2 fL (83.0-100.0); Mean Platelet Volume 12.6 fL (9.4-12.4); Red Blood Count 3.65 M/mcL (4.19-5.50)
[2019-12-15] MEDS: Baclofen 10 MG TABLET PO SCH ×3 (08:16→20:45)
[2019-12-15] MEDS: Aspirin 81 MG TAB.CHEW PO SCH (08:16)
[2019-12-15] MEDS: amLODIPine 5 MG TABLET PO SCH (08:16)
[2019-12-15] MEDS: Furosemide 40 MG TABLET PO SCH (08:16)
[2019-12-15] MEDS: Insulin LISPRO 300 UNITS/3 ML VIAL SQ SCH ×7 (08:18→20:45)
[2019-12-15] MEDS: Gabapentin 100 MG CAPSULE PO SCH ×2 (08:21→20:44)
[2019-12-15 08:28] LABS: BUN/Creatinine Ratio 21 (6-26); Blood Urea Nitrogen 30 mg/dL (8-23); Calcium 8.7 mg/dL (8.6-10.3); Carbon Dioxide 29 mEq/L (23-29); Chloride 103 mEq/L (98-107); Glucose 154 mg/dL (70-105); Osmolality,Calculated 301 (280-300); Potassium 4.2 mEq/L (3.5-5.1); Sodium 141 mEq/L (136-145); eGFR For African Americans > 60 (> 60); eGFR For Non-African Americans 50 (> 60)
[2019-12-15] MEDS: Insulin DETEMIR 100 UNIT/ML X5UNITS SQ SCH ×2 (08:33→20:45)
[2019-12-15] MEDS: Doxycycline 100 MG CAPSULE PO SCH ×2 (08:38→20:45)
[2019-12-16 04:44] LABS: Mean Corpuscular Hemoglobin 31.4 pg (28.0-33.3)
[2019-12-16 04:46] LABS: Hematocrit 34.2 % (37.5-50.1); Hemoglobin 11.4 g/dL (12.9-16.9); Immature Platelets 8.4 % (1.1-6.1); Mean Corpuscular HGB Conc 33.3 g/dL (31.6-35.5); Mean Corpuscular Volume 94.2 fL (83.0-100.0); Mean Platelet Volume 12.1 fL (9.4-12.4); Red Blood Count 3.63 M/mcL (4.19-5.50); Red Cell Distribution Width 13.9 % (11.5-14.5); White Blood Count 9.1 K/mcL (4.3-11.1)
[2019-12-16 04:54] LABS: BUN/Creatinine Ratio 24 (6-26); Blood Urea Nitrogen 32 mg/dL (8-23); Calcium 8.7 mg/dL (8.6-10.3); Carbon Dioxide 27 mEq/L (23-29); Chloride 103 mEq/L (98-107); Glucose 144 mg/dL (70-105); Osmolality,Calculated 299 (280-300); Potassium 4.1 mEq/L (3.5-5.1); Sodium 140 mEq/L (136-145); eGFR For African Americans > 60 (> 60); eGFR For Non-African Americans 52 (> 60)
[2019-12-16] MEDS: *HR* Heparin 5,000 UNIT/ML VIAL SQ SCH (05:03)
[2019-12-16] MEDS: *HR* HYDROcodone/Acet 5/325 mg TABLET PO PRN (05:03)
[2019-12-16] MEDS: Insulin LISPRO 300 UNITS/3 ML VIAL SQ SCH ×4 (07:46→11:24)
[2019-12-16] MEDS: Aspirin 81 MG TAB.CHEW PO SCH (07:57)
[2019-12-16] MEDS: Doxycycline 100 MG CAPSULE PO SCH (07:57)
[2019-12-16] MEDS: Insulin DETEMIR 100 UNIT/ML X5UNITS SQ SCH (07:58)
[2019-12-16] MEDS: Furosemide 40 MG TABLET PO SCH (07:58)
[2019-12-16] MEDS: Baclofen 10 MG TABLET PO SCH (07:59)
[2019-12-16] MEDS: amLODIPine 5 MG TABLET PO SCH (07:59)
[2019-12-16] MEDS: Gabapentin 100 MG CAPSULE PO SCH (07:59)
[2019-12-16 10:32] VITALS: BP 105/69
== END 2019-12-16 11:34 | disposition home or self-care (01) ==
LOC: EMEROOARM 12:02 → 3ANU 12:02 → SUATTDRO 14:56 → 3ANU 17:40
PROVIDERS: ADMIT Family Medicine; ATTEND Family Medicine

== ENCOUNTER 2019-12-21 11:44 | Observation (INO) ==
[2019-12-21 12:40] LABS: INR 1.1; Prothrombin Time 12.5 Seconds (9.4-12.1)
[2019-12-21 12:42] LABS: Basophils # 0.1 K/mcL (0.0-0.2); Eosinophils # 0.8 K/mcL (0.0-0.6); Eosinophils % 7.8 %; Hematocrit 38.3 % (37.5-50.1); Lymphocytes # 1.5 K/mcL (0.6-4.6); Lymphocytes % 14.7 %; Mean Corpuscular HGB Conc 31.3 g/dL (31.6-35.5); Mean Corpuscular Hemoglobin 31.3 pg (28.0-33.3); Mean Platelet Volume 11.9 fL (9.4-12.4); Monocytes # 0.7 K/mcL (0.0-1.3); Monocytes % 7.1 %; Neutrophils # 6.9 K/mcL (1.6-8.9); Platelet Count 110 K/mcL (140-400); Red Blood Count 3.83 M/mcL (4.19-5.50); Red Cell Distribution Width 14.1 % (11.5-14.5); Segmented Neutrophils % 67.4 %; White Blood Count 10.2 K/mcL (4.3-11.1)
[2019-12-21 12:43] LABS: Activated Partial Thrombo Time 37.5 Seconds (26.0-36.0)
[2019-12-21] MEDS ORDERED: *HR* HYDROcodone/Acet 5/325 mg TABLET PO ONE (13:35)
[2019-12-21 13:42] LABS: Albumin 4.1 g/dL (3.5-5.7); Albumin/Globulin Ratio 1.2 (1.1-2.2); Bilirubin,Total 0.5 mg/dL (0.3-1.0); Calcium 9.2 mg/dL (8.6-10.3); Globulin 3.3 g/dL (2.4-3.5); Potassium 4.6 mEq/L (3.5-5.1); Total Protein 7.4 g/dL (6.4-8.9)
[2019-12-21] MEDS ORDERED: Naloxone 0.4 MG/ML INJ IVP PRN (13:53)
[2019-12-21] MEDS ORDERED: Dextrose Gel 15 GM/37.5 ML TUBE PO PRN ×2 (15:19)
[2019-12-21] MEDS ORDERED: *HR* Dextrose 50 % in Water (Syg) 50 ML SYRINGE IVP PRN (15:19)
[2019-12-21] MEDS ORDERED: D5% in Water 1,000 ML IVC PRN (15:19)
[2019-12-21] MEDS ORDERED: Acetaminophen 325 MG TABLET PO PRN (15:20)
[2019-12-21] MEDS: Ampicillin/Sulbactam 3,000 MG in 0.9 % Sodium Chloride Mini Bag 100 ML IVPB SCH ×3 (17:28→23:59)
[2019-12-21] MEDS: Insulin LISPRO 300 UNITS/3 ML VIAL SQ SCH ×2 (18:15→21:31)
[2019-12-21] MEDS: *HR* HYDROcodone/Acet 5/325 mg TABLET PO PRN (21:34)
[2019-12-21] MEDS: Insulin DETEMIR 100 UNIT/ML X5UNITS SQ SCH (21:34)
[2019-12-22 04:26] LABS: Basophils # 0.1 K/mcL (0.0-0.2); Eosinophils # 0.8 K/mcL (0.0-0.6); Hematocrit 34.1 % (37.5-50.1); Hemoglobin 11.3 g/dL (12.9-16.9); Immature Granulocytes % 1.7 % (0-4); Lymphocytes # 1.9 K/mcL (0.6-4.6); Lymphocytes % 17.3 %; Mean Corpuscular HGB Conc 33.1 g/dL (31.6-35.5); Mean Corpuscular Hemoglobin 31.4 pg (28.0-33.3); Mean Corpuscular Volume 94.7 fL (83.0-100.0); Mean Platelet Volume 12.4 fL (9.4-12.4); Monocytes # 0.7 K/mcL (0.0-1.3); Monocytes % 6.8 %; Neutrophils # 7.2 K/mcL (1.6-8.9); Platelet Count 107 K/mcL (140-400); Red Cell Distribution Width 13.8 % (11.5-14.5); Segmented Neutrophils % 66.2 %; White Blood Count 10.9 K/mcL (4.3-11.1)
[2019-12-22 04:43] LABS: Potassium 4.4 mEq/L (3.5-5.1)
[2019-12-22] MEDS: Ampicillin/Sulbactam 3,000 MG in 0.9 % Sodium Chloride Mini Bag 100 ML IVPB SCH ×3 (06:14→18:16)
[2019-12-22] MEDS: Insulin DETEMIR 100 UNIT/ML X5UNITS SQ SCH ×2 (09:31→21:37)
[2019-12-22] MEDS: *HR* HYDROcodone/Acet 5/325 mg TABLET PO PRN ×2 (09:32→17:10)
[2019-12-22] MEDS: Insulin LISPRO 300 UNITS/3 ML VIAL SQ SCH ×4 (09:34→21:37)
[2019-12-22] MEDS: *HR* Heparin 5,000 UNIT/ML VIAL SQ SCH (18:16)
[2019-12-23] MEDS: Ampicillin/Sulbactam 3,000 MG in 0.9 % Sodium Chloride Mini Bag 100 ML IVPB SCH ×3 (00:50→11:46)
[2019-12-23 03:45] LABS: Basophils # 0.1 K/mcL (0.0-0.2); Eosinophils # 0.7 K/mcL (0.0-0.6); Eosinophils % 7.5 %; Hematocrit 35.6 % (37.5-50.1); Hemoglobin 11.8 g/dL (12.9-16.9); Immature Granulocytes % 1.1 % (0-4); Lymphocytes # 1.4 K/mcL (0.6-4.6); Lymphocytes % 16.3 %; Mean Corpuscular HGB Conc 33.1 g/dL (31.6-35.5); Mean Corpuscular Hemoglobin 31.4 pg (28.0-33.3); Mean Corpuscular Volume 94.7 fL (83.0-100.0); Mean Platelet Volume 11.9 fL (9.4-12.4); Monocytes # 0.6 K/mcL (0.0-1.3); Monocytes % 7.3 %; Neutrophils # 5.9 K/mcL (1.6-8.9); Platelet Count 104 K/mcL (140-400); Red Blood Count 3.76 M/mcL (4.19-5.50); Red Cell Distribution Width 13.6 % (11.5-14.5); Segmented Neutrophils % 66.8 %; White Blood Count 8.8 K/mcL (4.3-11.1)
[2019-12-23 04:04] LABS: BUN/Creatinine Ratio 22 (6-26); Blood Urea Nitrogen 25 mg/dL (8-23); Calcium 9.4 mg/dL (8.6-10.3); Carbon Dioxide 28 mEq/L (23-29); Chloride 103 mEq/L (98-107); Glucose 159 mg/dL (70-105); Osmolality,Calculated 296 (280-300); Potassium 4.1 mEq/L (3.5-5.1); Sodium 139 mEq/L (136-145); eGFR For African Americans > 60 (> 60); eGFR For Non-African Americans > 60 (> 60)
[2019-12-23] MEDS: *HR* Heparin 5,000 UNIT/ML VIAL SQ SCH (06:37)
[2019-12-23] MEDS ORDERED: amLODIPine 5 MG TABLET PO SCH (09:00)
[2019-12-23] MEDS ORDERED: Furosemide 20 MG/2 ML VIAL IVP SCH (09:00)
[2019-12-23] MEDS: Insulin LISPRO 300 UNITS/3 ML VIAL SQ SCH ×2 (09:04→11:48)
[2019-12-23] MEDS: Insulin DETEMIR 100 UNIT/ML X5UNITS SQ SCH (09:04)
[2019-12-23 11:06] VITALS: BP 158/77
== END 2019-12-23 15:31 | disposition home health service (06) ==
LOC: EMEROOARM 11:44 → 3BNU 11:44 → SUATTDRO 13:56 → 3BNU 14:19
PROVIDERS: ADMIT Internal Medicine; ATTEND Internal Medicine

== ENCOUNTER 2020-01-06 12:28 | Inpatient (IN) ==
[2020-01-06 13:25] LABS: Basophils % 0.4 %; Eosinophils % 0.3 %; Hematocrit 37.7 % (37.5-50.1); Hemoglobin 12.4 g/dL (12.9-16.9); Immature Granulocytes % 1.2 % (0-4); Lymphocytes % 8.9 %; Mean Corpuscular HGB Conc 32.9 g/dL (31.6-35.5); Mean Corpuscular Hemoglobin 31.2 pg (28.0-33.3); Mean Platelet Volume 12.1 fL (9.4-12.4); Monocytes # 0.4 K/mcL (0.0-1.3); Monocytes % 3.1 %; Neutrophils # 9.7 K/mcL (1.6-8.9); Platelet Count 100 K/mcL (140-400); Red Blood Count 3.97 M/mcL (4.19-5.50); Red Cell Distribution Width 13.6 % (11.5-14.5); Segmented Neutrophils % 86.1 %; White Blood Count 11.3 K/mcL (4.3-11.1)
[2020-01-06 13:46] LABS: BUN/Creatinine Ratio 23 (6-26); Blood Urea Nitrogen 28 mg/dL (8-23); Calcium 9.3 mg/dL (8.6-10.3); Carbon Dioxide 28 mEq/L (23-29); Chloride 100 mEq/L (98-107); Glucose 368 mg/dL (70-105); Osmolality,Calculated 300 (280-300); Potassium 4.9 mEq/L (3.5-5.1); Sodium 135 mEq/L (136-145); eGFR For African Americans > 60 (> 60); eGFR For Non-African Americans 58 (> 60)
[2020-01-06] MEDS ORDERED: Naloxone 0.4 MG/ML INJ IVP PRN (15:32)
[2020-01-06] MEDS ORDERED: Dextrose Gel 15 GM/37.5 ML TUBE PO PRN ×2 (15:35)
[2020-01-06] MEDS ORDERED: D5% in Water 1,000 ML IVC PRN (15:35)
[2020-01-06] MEDS ORDERED: *HR* Dextrose 50 % in Water (Syg) 50 ML SYRINGE IVP PRN (15:35)
[2020-01-06] MEDS ORDERED: Ringers Solution, Lactated 1,000 ML IVC SCH (15:45)
[2020-01-06 15:56] LABS: C-Reactive Protein 8 mg/L (Less than 10)
[2020-01-06] MEDS: *HR* Heparin 5,000 UNIT/ML VIAL SQ SCH (17:46)
[2020-01-06] MEDS: Insulin LISPRO 300 UNITS/3 ML VIAL SQ SCH (17:46)
[2020-01-06] MEDS: Piperacillin/Tazobactam 3.375 GM in 0.9 % Sodium Chloride Mini Bag 100 ML IVPB SCH (17:47)
[2020-01-06] MEDS: Acetaminophen 325 MG TABLET PO PRN (19:49)
[2020-01-06] MEDS: Gabapentin 100 MG CAPSULE PO SCH (19:50)
[2020-01-06] MEDS: Baclofen 10 MG TABLET PO SCH (19:50)
[2020-01-06] MEDS: Insulin DETEMIR 100 UNIT/ML X5UNITS SQ SCH (19:50)
[2020-01-07] MEDS: Piperacillin/Tazobactam 3.375 GM in 0.9 % Sodium Chloride Mini Bag 100 ML IVPB SCH ×3 (00:07→17:08)
[2020-01-07] MEDS: *HR* Heparin 5,000 UNIT/ML VIAL SQ SCH ×2 (04:55→17:06)
[2020-01-07] MEDS: Acetaminophen 325 MG TABLET PO PRN (05:00)
[2020-01-07 07:49] LABS: Basophils # 0.1 K/mcL (0.0-0.2); Basophils % 0.5 %; Eosinophils # 0.3 K/mcL (0.0-0.6); Eosinophils % 3.3 %; Hematocrit 39.1 % (37.5-50.1); Hemoglobin 12.6 g/dL (12.9-16.9); Immature Granulocytes % 1.5 % (0-4); Immature Platelets 8.7 % (1.1-6.1); Lymphocytes # 1.2 K/mcL (0.6-4.6); Lymphocytes % 11.3 %; Mean Corpuscular HGB Conc 32.2 g/dL (31.6-35.5); Mean Corpuscular Hemoglobin 30.6 pg (28.0-33.3); Mean Corpuscular Volume 94.9 fL (83.0-100.0); Mean Platelet Volume 12.3 fL (9.4-12.4); Monocytes # 0.7 K/mcL (0.0-1.3); Monocytes % 6.4 %; Red Blood Count 4.12 M/mcL (4.19-5.50); Red Cell Distribution Width 13.6 % (11.5-14.5); White Blood Count 10.3 K/mcL (4.3-11.1)
[2020-01-07 07:51] LABS: Prothrombin Time 11.9 Seconds (9.4-12.1)
[2020-01-07 07:53] LABS: Activated Partial Thrombo Time 33.7 Seconds (26.0-36.0)
[2020-01-07] MEDS: Insulin LISPRO 300 UNITS/3 ML VIAL SQ SCH ×4 (08:02→19:47)
[2020-01-07] MEDS: Loratadine 10 MG TABLET PO SCH (08:02)
[2020-01-07] MEDS: Aspirin 81 MG TAB.CHEW PO SCH (08:03)
[2020-01-07] MEDS: Gabapentin 100 MG CAPSULE PO SCH ×2 (08:03→20:54)
[2020-01-07] MEDS: Baclofen 10 MG TABLET PO SCH ×3 (08:03→20:54)
[2020-01-07 08:04] LABS: BUN/Creatinine Ratio 20 (6-26); Blood Urea Nitrogen 25 mg/dL (8-23); Calcium 9.1 mg/dL (8.6-10.3); Carbon Dioxide 27 mEq/L (23-29); Chloride 102 mEq/L (98-107); Glucose 190 mg/dL (70-105); Magnesium 1.9 mg/dL (1.6-2.6); Osmolality,Calculated 295 (280-300); Phosphorous 3.3 mg/dL (2.7-4.5); Sodium 138 mEq/L (136-145); eGFR For African Americans > 60 (> 60); eGFR For Non-African Americans 58 (> 60)
[2020-01-07 08:08] LABS: Neutrophils # 7.9 K/mcL (1.6-8.9); Platelet Count 92 K/mcL (140-400)
[2020-01-07] MEDS: Insulin DETEMIR 100 UNIT/ML X5UNITS SQ SCH (08:12)
[2020-01-07 13:23] LABS: Estimated Average Glucose 154 mg/dl
[2020-01-07] MEDS ORDERED: Dextrose Gel 15 GM/37.5 ML TUBE PO PRN ×2 (18:28)
[2020-01-07] MEDS ORDERED: D5% in Water 1,000 ML IVC PRN (18:28)
[2020-01-07] MEDS ORDERED: *HR* Dextrose 50 % in Water (Syg) 50 ML SYRINGE IVP PRN (18:28)
[2020-01-07] MEDS: amLODIPine 5 MG TABLET PO SCH (19:46)
[2020-01-08] MEDS: Piperacillin/Tazobactam 3.375 GM in 0.9 % Sodium Chloride Mini Bag 100 ML IVPB SCH ×3 (00:47→17:16)
[2020-01-08 03:24] LABS: Mean Corpuscular Hemoglobin 31.3 pg (28.0-33.3); Mean Corpuscular Volume 95.1 fL (83.0-100.0); Mean Platelet Volume 11.9 fL (9.4-12.4)
[2020-01-08 03:26] LABS: Basophils # 0.1 K/mcL (0.0-0.2); Basophils % 0.8 %; Eosinophils # 0.6 K/mcL (0.0-0.6); Eosinophils % 6.5 %; Hematocrit 36.7 % (37.5-50.1); Hemoglobin 12.1 g/dL (12.9-16.9); Immature Granulocytes % 1.7 % (0-4); Immature Platelets 7.7 % (1.1-6.1); Lymphocytes # 1.3 K/mcL (0.6-4.6); Lymphocytes % 14.5 %; Monocytes # 0.7 K/mcL (0.0-1.3); Monocytes % 7.6 %; Neutrophils # 6.3 K/mcL (1.6-8.9); Red Blood Count 3.86 M/mcL (4.19-5.50); Red Cell Distribution Width 13.8 % (11.5-14.5); Segmented Neutrophils % 68.9 %; White Blood Count 9.1 K/mcL (4.3-11.1)
[2020-01-08 03:27] LABS: Platelet Count 85 K/mcL (140-400)
[2020-01-08 03:43] LABS: BUN/Creatinine Ratio 24 (6-26); Blood Urea Nitrogen 29 mg/dL (8-23); Calcium 8.8 mg/dL (8.6-10.3); Carbon Dioxide 27 mEq/L (23-29); Chloride 102 mEq/L (98-107); Glucose 166 mg/dL (70-105); Magnesium 1.8 mg/dL (1.6-2.6); Osmolality,Calculated 302 (280-300); Potassium 4.3 mEq/L (3.5-5.1); Sodium 141 mEq/L (136-145); eGFR For African Americans > 60 (> 60); eGFR For Non-African Americans 59 (> 60)
[2020-01-08] MEDS: *HR* Heparin 5,000 UNIT/ML VIAL SQ SCH ×2 (06:38→17:17)
[2020-01-08] MEDS: Baclofen 10 MG TABLET PO SCH ×3 (08:30→21:06)
[2020-01-08] MEDS: amLODIPine 5 MG TABLET PO SCH (08:30)
[2020-01-08] MEDS: Metoprolol XL (24 HR) Succ 25 MG TAB.ER.24H PO SCH (08:31)
[2020-01-08] MEDS: Aspirin 81 MG TAB.CHEW PO SCH (08:31)
[2020-01-08] MEDS: Gabapentin 100 MG CAPSULE PO SCH ×2 (08:31→21:05)
[2020-01-08] MEDS: Loratadine 10 MG TABLET PO SCH (08:31)
[2020-01-08] MEDS: Insulin DETEMIR 100 UNIT/ML X5UNITS SQ SCH (08:32)
[2020-01-08] MEDS: Insulin LISPRO 300 UNITS/3 ML VIAL SQ SCH ×3 (08:32→17:17)
[2020-01-08 11:00] LABS: Triiodothyronine (T3) Free 2.7 pg/mL (2.50-3.90)
[2020-01-08] MEDS ORDERED: Aminoglycoside Consult 1 EACH MC ONE (11:49)
[2020-01-08] MEDS: Acetaminophen 325 MG TABLET PO PRN ×2 (12:12→21:05)
[2020-01-08] MEDS ORDERED: *HR* HYDROmorphone 2 MG/ML SYRINGE IVP PRN (13:21)
[2020-01-08] MEDS: Neosporin OINT 15 GM TUBE TP SCH (22:43)
[2020-01-09] MEDS: Piperacillin/Tazobactam 3.375 GM in 0.9 % Sodium Chloride Mini Bag 100 ML IVPB SCH ×2 (00:51→07:55)
[2020-01-09 01:35] LABS: Basophils % 0.8 %
[2020-01-09 01:37] LABS: Basophils # 0.1 K/mcL (0.0-0.2); Eosinophils # 0.6 K/mcL (0.0-0.6); Hemoglobin 11.8 g/dL (12.9-16.9); Immature Granulocytes % 2.3 % (0-4); Lymphocytes # 1.5 K/mcL (0.6-4.6); Mean Corpuscular HGB Conc 32.8 g/dL (31.6-35.5); Mean Corpuscular Hemoglobin 31.1 pg (28.0-33.3); Mean Platelet Volume 12.1 fL (9.4-12.4); Monocytes # 0.8 K/mcL (0.0-1.3); Monocytes % 8.8 %; Neutrophils # 5.9 K/mcL (1.6-8.9); Nucleated Red Blood Cells 0.2 /100 WBC (0); Red Blood Count 3.79 M/mcL (4.19-5.50); Red Cell Distribution Width 13.7 % (11.5-14.5); Segmented Neutrophils % 65.1 %; White Blood Count 9.1 K/mcL (4.3-11.1)
[2020-01-09 01:39] LABS: Platelet Count 82 K/mcL (140-400); Platelet Estimate Decreased (Normal)
[2020-01-09 01:41] LABS: BUN/Creatinine Ratio 26 (6-26); Blood Urea Nitrogen 29 mg/dL (8-23); Calcium 8.8 mg/dL (8.6-10.3); Carbon Dioxide 27 mEq/L (23-29); Chloride 104 mEq/L (98-107); Glucose 224 mg/dL (70-105); Magnesium 1.9 mg/dL (1.6-2.6); Osmolality,Calculated 291 (280-300); Potassium 4.5 mEq/L (3.5-5.1); Sodium 134 mEq/L (136-145); eGFR For African Americans > 60 (> 60); eGFR For Non-African Americans > 60 (> 60)
[2020-01-09] MEDS: Acetaminophen 325 MG TABLET PO PRN (03:38)
[2020-01-09] MEDS: *HR* Heparin 5,000 UNIT/ML VIAL SQ SCH (05:01)
[2020-01-09 07:03] VITALS: BP 128/73
[2020-01-09] MEDS: Gabapentin 100 MG CAPSULE PO SCH (07:55)
[2020-01-09] MEDS: Insulin LISPRO 300 UNITS/3 ML VIAL SQ SCH (07:57)
[2020-01-09] MEDS: Loratadine 10 MG TABLET PO SCH (09:09)
[2020-01-09] MEDS: Aspirin 81 MG TAB.CHEW PO SCH (09:09)
[2020-01-09] MEDS: amLODIPine 5 MG TABLET PO SCH (09:10)
[2020-01-09] MEDS: Baclofen 10 MG TABLET PO SCH (09:10)
[2020-01-09] MEDS: Metoprolol XL (24 HR) Succ 25 MG TAB.ER.24H PO SCH (09:10)
[2020-01-09] MEDS: Neosporin OINT 15 GM TUBE TP SCH (09:11)
[2020-01-09] MEDS: Insulin DETEMIR 100 UNIT/ML X5UNITS SQ SCH (09:21)
== END 2020-01-09 11:50 | disposition home or self-care (01) | DRG 603 ==
LOC: 3NENU 12:28 → EMEROOARM 12:28 → SUATTDRO 15:32 → 3NENU 16:45
PROVIDERS: ADMIT Internal Medicine; ATTEND Pharmacist
PROC: IRDRAIN (2020-01-07 12:00)

== ENCOUNTER 2020-03-06 03:40 | Observation (INO) ==
[2020-03-06 05:24] LABS: Basophils # 0.1 K/mcL (0.0-0.2); Basophils % 0.9 %; Eosinophils # 0.6 K/mcL (0.0-0.6); Eosinophils % 5.1 %; Hematocrit 35.9 % (37.5-50.1); Hemoglobin 11.2 g/dL (12.9-16.9); Immature Granulocytes % 1.5 % (0-4); Lymphocytes % 17.6 %; Mean Corpuscular HGB Conc 31.2 g/dL (31.6-35.5); Mean Corpuscular Hemoglobin 31.3 pg (28.0-33.3); Mean Corpuscular Volume 100.3 fL (83.0-100.0); Mean Platelet Volume 12.4 fL (9.4-12.4); Monocytes # 0.9 K/mcL (0.0-1.3); Monocytes % 8.1 %; Neutrophils # 7.5 K/mcL (1.6-8.9); Platelet Count 101 K/mcL (140-400); Red Blood Count 3.58 M/mcL (4.19-5.50); Red Cell Distribution Width 14.7 % (11.5-14.5); Segmented Neutrophils % 66.8 %; White Blood Count 11.3 K/mcL (4.3-11.1)
[2020-03-06 05:29] LABS: Prothrombin Time 11.8 Seconds (9.4-12.1)
[2020-03-06 05:31] LABS: Activated Partial Thrombo Time 33.9 Seconds (26.0-36.0)
[2020-03-06 05:44] LABS: Alanine Aminotransferase 39 Units/L (7-52); Albumin 3.8 g/dL (3.5-5.7); Albumin/Globulin Ratio 1.3 (1.1-2.2); Alkaline Phosphatase 70 Units/L (34-104); Aspartate Amino Transferase 50 Units/L (13-39); BUN/Creatinine Ratio 25 (6-26); Bilirubin,Direct 0.1 mg/dL (0.0-0.2); Bilirubin,Indirect 0.4 mg/dL (0.0-1.0); Bilirubin,Total 0.5 mg/dL (0.3-1.0); Blood Urea Nitrogen 45 mg/dL (8-23); Calcium 9.3 mg/dL (8.6-10.3); Carbon Dioxide 32 mEq/L (23-29); Chloride 102 mEq/L (98-107); Creatine Kinase 153 Units/L (30-223); Globulin 2.9 g/dL (2.4-3.5); Glucose 146 mg/dL (70-105); Osmolality,Calculated 306 (280-300); Potassium 4.5 mEq/L (3.5-5.1); Sodium 141 mEq/L (136-145); Total Protein 6.7 g/dL (6.4-8.9); eGFR For African Americans 45 (> 60); eGFR For Non-African Americans 37 (> 60)
[2020-03-06 05:45] LABS: Troponin I < 0.03 ng/mL (< 0.04)
[2020-03-06] MEDS ORDERED: 0.9 % Sodium Chloride 1,000 ML IVC ONE (05:54)
[2020-03-06] MEDS ORDERED: Mag Hydrox/Al Hydrox/Simeth 30 ML UDC PO PRN (07:40)
[2020-03-06] MEDS ORDERED: MOM Conc 10 ML UD.LIQ PO PRN (07:40)
[2020-03-06] MEDS ORDERED: Ondansetron ODT 4 MG TAB.RAPDIS SL PRN (07:40)
[2020-03-06] MEDS ORDERED: Acetaminophen 325 MG TABLET PO PRN (07:40)
[2020-03-06] MEDS ORDERED: Naloxone 0.4 MG/ML INJ IVP PRN (07:40)
[2020-03-06 08:40] LABS: Bilirubin,Urine Negative (Negative); Blood,Urine Negative (Negative); Clarity,Urine Clear (Clear); Color,Urine Dark Yellow (Yellow); Glucose,Urine (UA) Normal (Normal); Ketones,Urine Negative (Negative); Leukocyte Esterase,Urine Small (Negative); Nitrite,Urine Negative (Negative); Protein,Urine Negative (Neg-Trace); Specific Gravity,Urine 1.022 (1.010-1.025); Urobilinogen,Urine Normal (Normal)
[2020-03-06 08:44] LABS: Thyroid Stimulating Hormone 17.442 mcIU/mL (0.340-5.600)
[2020-03-06 08:47] LABS: Bacteria,Urine None Seen per hpf (None-Few); Hyaline Casts,Urine None Seen per lpf (None-Few); RBC,Urine 0-3 per hpf (0-3); Squamous Epithelial Cell,Urine Moderate per lpf (None-Few)
[2020-03-06 08:50] LABS: Amphetamine Screen,Urine Negative ng/mL (Cutoff=1000); Barbiturate Screen,Urine Negative ng/mL (Cutoff=200); Benzodiazepines Screen,Urine Negative ng/mL (Cutoff=200); Cannabinoid Screen,Urine Negative ng/mL (Cutoff = 50); Cocaine Screen,Urine Negative ng/mL (Cutoff= 300); Opiate Screen,Urine Negative ng/mL (Cutoff=300); Phencyclidine Screen,Urine Negative ng/mL (Cutoff=25)
[2020-03-06 09:02] LABS: Yeast,Urine Few per hpf (None Seen)
[2020-03-06] MEDS ORDERED: D5% in Water 1,000 ML IVC PRN (09:27)
[2020-03-06] MEDS ORDERED: *HR* Dextrose 50 % in Water (Syg) 50 ML SYRINGE IVP PRN (09:27)
[2020-03-06] MEDS ORDERED: Dextrose Gel 15 GM/37.5 ML TUBE PO PRN ×2 (09:27)
[2020-03-06] MEDS ORDERED: Fluticasone Propionate Nasal 50 MCG/SPRAY BOTTLE NS PRN (09:29)
[2020-03-06] MEDS ORDERED: *HR* Acetaminophen w/Cod 300-30 mg 1 TAB TABLET PO PRN (09:29)
[2020-03-06] MEDS: Doxycycline 100 MG CAPSULE PO SCH ×2 (10:56→21:47)
[2020-03-06] MEDS: Aspirin 81 MG TAB.CHEW PO SCH (10:56)
[2020-03-06] MEDS: Metoprolol XL (24 HR) Succ 25 MG TAB.ER.24H PO SCH (10:56)
[2020-03-06] MEDS: amLODIPine 5 MG TABLET PO SCH (10:56)
[2020-03-06] MEDS: Loratadine 10 MG TABLET PO SCH (10:56)
[2020-03-06] MEDS: 0.9 % Sodium Chloride 1,000 ML IVC SCH ×2 (10:57→21:46)
[2020-03-06] MEDS: BACLOFEN IT SCH (11:08)
[2020-03-06] MEDS: BUPIVACAINE IT SCH (11:08)
[2020-03-06] MEDS: HYDROMORPHONE IT SCH (11:08)
[2020-03-06] MEDS: Insulin LISPRO 300 UNITS/3 ML VIAL SQ SCH ×4 (12:12→21:52)
[2020-03-06] MEDS ORDERED: Baclofen 10 MG TABLET PO SCH (15:00)
[2020-03-06] MEDS ORDERED: Gabapentin 100 MG CAPSULE PO SCH (21:00)
[2020-03-06] MEDS: Lactobacillus 1 EACH CAP.SPRINK PO SCH (21:47)
[2020-03-06] MEDS: Gabapentin 300 MG CAPSULE PO SCH (21:47)
[2020-03-06] MEDS: Insulin NPH 100 UNIT/ML (x5UNIT) SQ SCH (21:52)
[2020-03-07 02:57] LABS: Hematocrit 34.8 % (37.5-50.1); Hemoglobin 11.1 g/dL (12.9-16.9); Immature Platelets 10.9 % (1.1-6.1); Mean Corpuscular HGB Conc 31.9 g/dL (31.6-35.5); Mean Corpuscular Hemoglobin 31.8 pg (28.0-33.3); Mean Corpuscular Volume 99.7 fL (83.0-100.0); Mean Platelet Volume 12.3 fL (9.4-12.4); Red Blood Count 3.49 M/mcL (4.19-5.50); Red Cell Distribution Width 14.7 % (11.5-14.5); White Blood Count 8.6 K/mcL (4.3-11.1)
[2020-03-07 03:16] LABS: BUN/Creatinine Ratio 28 (6-26); Blood Urea Nitrogen 37 mg/dL (8-23); Calcium 8.7 mg/dL (8.6-10.3); Carbon Dioxide 27 mEq/L (23-29); Chloride 102 mEq/L (98-107); Glucose 216 mg/dL (70-105); Osmolality,Calculated 301 (280-300); Potassium 4.4 mEq/L (3.5-5.1); Sodium 138 mEq/L (136-145); eGFR For African Americans > 60 (> 60); eGFR For Non-African Americans 53 (> 60)
[2020-03-07] MEDS: *HR* Enoxaparin 40 MG/0.4 ML SYRINGE SQ SCH (05:47)
[2020-03-07] MEDS: amLODIPine 5 MG TABLET PO SCH (08:33)
[2020-03-07] MEDS: Lactobacillus 1 EACH CAP.SPRINK PO SCH ×2 (08:33→20:47)
[2020-03-07] MEDS: Doxycycline 100 MG CAPSULE PO SCH ×2 (08:34→20:47)
[2020-03-07] MEDS: Aspirin 81 MG TAB.CHEW PO SCH (08:34)
[2020-03-07] MEDS: Loratadine 10 MG TABLET PO SCH (08:34)
[2020-03-07] MEDS: Gabapentin 300 MG CAPSULE PO SCH ×3 (08:34→20:47)
[2020-03-07] MEDS: Insulin NPH 100 UNIT/ML (x5UNIT) SQ SCH ×2 (08:35→20:39)
[2020-03-07] MEDS: Metoprolol XL (24 HR) Succ 25 MG TAB.ER.24H PO SCH (08:35)
[2020-03-07] MEDS: Insulin LISPRO 300 UNITS/3 ML VIAL SQ SCH ×6 (08:36→20:49)
[2020-03-07] MEDS: HYDROMORPHONE IT SCH (08:38)
[2020-03-07] MEDS: BUPIVACAINE IT SCH (08:38)
[2020-03-07] MEDS: BACLOFEN IT SCH (08:38)
[2020-03-07] MEDS ORDERED: Levothyroxine Sodium 200 MCG VIAL IVP ONE (09:56)
[2020-03-08] MEDS: *HR* Enoxaparin 40 MG/0.4 ML SYRINGE SQ SCH (04:49)
[2020-03-08] MEDS: Doxycycline 100 MG CAPSULE PO SCH (07:51)
[2020-03-08] MEDS: Lactobacillus 1 EACH CAP.SPRINK PO SCH (07:52)
[2020-03-08] MEDS: Loratadine 10 MG TABLET PO SCH (07:53)
[2020-03-08] MEDS: Gabapentin 300 MG CAPSULE PO SCH (07:53)
[2020-03-08] MEDS: Metoprolol XL (24 HR) Succ 25 MG TAB.ER.24H PO SCH (07:53)
[2020-03-08] MEDS: Aspirin 81 MG TAB.CHEW PO SCH (07:53)
[2020-03-08] MEDS: amLODIPine 5 MG TABLET PO SCH (07:53)
[2020-03-08] MEDS: Insulin NPH 100 UNIT/ML (x5UNIT) SQ SCH (08:07)
[2020-03-08] MEDS: Insulin LISPRO 300 UNITS/3 ML VIAL SQ SCH ×3 (08:07→12:18)
[2020-03-08] MEDS: HYDROMORPHONE IT SCH (08:09)
[2020-03-08] MEDS: BACLOFEN IT SCH (08:09)
[2020-03-08] MEDS: BUPIVACAINE IT SCH (08:09)
[2020-03-08 11:23] VITALS: BP 139/72
== END 2020-03-08 14:47 | disposition home health service (06) ==
LOC: EMEROOARM 03:40 → 3BNU 03:40 → SUATTDRO 07:47 → 3BNU 07:54
PROVIDERS: ADMIT Internal Medicine; ATTEND Student in an Organized Health Care Education/Training Program

== ENCOUNTER 2020-03-24 12:57 | Inpatient (IN) ==
[2020-03-24 14:30] LABS: Hemoglobin 11.6 g/dL (12.9-16.9); Mean Corpuscular HGB Conc 31.4 g/dL (31.6-35.5); Mean Corpuscular Hemoglobin 30.7 pg (28.0-33.3); Mean Corpuscular Volume 97.9 fL (83.0-100.0); Mean Platelet Volume 12.1 fL (9.4-12.4); Platelet Count 104 K/mcL (140-400); Red Blood Count 3.78 M/mcL (4.19-5.50); Red Cell Distribution Width 14.5 % (11.5-14.5); White Blood Count 9.5 K/mcL (4.3-11.1)
[2020-03-24] MEDS ORDERED: Piperacillin/Tazobactam 3.375 GM in 0.9 % Sodium Chloride Mini Bag 100 ML IVPB ONE (14:41)
[2020-03-24] MEDS ORDERED: Vancomycin 1,500 MG/265 ML IV.SOLN IVPB ONE (14:45)
[2020-03-24 15:31] LABS: BUN/Creatinine Ratio 21 (6-26); Blood Urea Nitrogen 26 mg/dL (8-23); Calcium 9.5 mg/dL (8.6-10.3); Carbon Dioxide 28 mEq/L (23-29); Chloride 100 mEq/L (98-107); Glucose 204 mg/dL (70-105); Osmolality,Calculated 301 (280-300); Sodium 140 mEq/L (136-145); eGFR For African Americans > 60 (> 60); eGFR For Non-African Americans 59 (> 60)
[2020-03-24] MEDS ORDERED: Acetaminophen 325 MG TABLET PO PRN (16:12)
[2020-03-24] MEDS ORDERED: Naloxone 0.4 MG/ML INJ IVP PRN (16:12)
[2020-03-24] MEDS ORDERED: *HR* HYDROcodone/Acet 5/325 mg TABLET PO PRN (16:12)
[2020-03-24] MEDS ORDERED: Fluticasone Propionate Nasal 50 MCG/SPRAY BOTTLE NS PRN (17:07)
[2020-03-24] MEDS ORDERED: Dextrose Gel 15 GM/37.5 ML TUBE PO PRN ×2 (17:09)
[2020-03-24] MEDS ORDERED: *HR* Dextrose 50 % in Water (Syg) 50 ML SYRINGE IVP PRN (17:09)
[2020-03-24] MEDS ORDERED: D5% in Water 1,000 ML IVC PRN (17:09)
[2020-03-24] MEDS: *HR* Heparin 5,000 UNIT/ML VIAL SQ SCH (18:42)
[2020-03-24] MEDS: Insulin LISPRO 300 UNITS/3 ML VIAL SQ SCH ×2 (18:42→21:00)
[2020-03-24] MEDS: *HR* HYDROcodone/Acet 5/325 mg TABLET PO PRN (19:53)
[2020-03-24] MEDS: Lactobacillus 1 EACH CAP.SPRINK PO SCH (19:54)
[2020-03-24] MEDS: Gabapentin 300 MG CAPSULE PO SCH (19:54)
[2020-03-24] MEDS: Piperacillin/Tazobactam 3.375 GM in 0.9 % Sodium Chloride Mini Bag 100 ML IVPB SCH (23:59)
[2020-03-25 05:53] LABS: Hematocrit 36.7 % (37.5-50.1); Hemoglobin 11.8 g/dL (12.9-16.9); Mean Corpuscular HGB Conc 32.2 g/dL (31.6-35.5); Mean Corpuscular Hemoglobin 31.2 pg (28.0-33.3); Mean Corpuscular Volume 97.1 fL (83.0-100.0); Red Blood Count 3.78 M/mcL (4.19-5.50)
[2020-03-25 05:55] LABS: Basophils # 0.1 K/mcL (0.0-0.2); Eosinophils # 0.5 K/mcL (0.0-0.6); Eosinophils % 5.4 %; Immature Granulocytes % 1.2 % (0-4); Immature Platelets 6.2 % (1.1-6.1); Lymphocytes # 1.3 K/mcL (0.6-4.6); Mean Platelet Volume 11.7 fL (9.4-12.4); Monocytes # 0.7 K/mcL (0.0-1.3); Monocytes % 7.7 %; Neutrophils # 6.9 K/mcL (1.6-8.9); Red Cell Distribution Width 14.4 % (11.5-14.5); Segmented Neutrophils % 71.7 %; White Blood Count 9.6 K/mcL (4.3-11.1)
[2020-03-25 05:59] LABS: Platelet Count 95 K/mcL (140-400)
[2020-03-25 06:00] LABS: INR 1.1; Prothrombin Time 12.6 Seconds (9.4-12.1)
[2020-03-25 06:13] LABS: BUN/Creatinine Ratio 18 (6-26); Blood Urea Nitrogen 21 mg/dL (8-23); Calcium 9.2 mg/dL (8.6-10.3); Carbon Dioxide 29 mEq/L (23-29); Chloride 99 mEq/L (98-107); Glucose 183 mg/dL (70-105); Magnesium 1.6 mg/dL (1.6-2.6); Osmolality,Calculated 292 (280-300); Potassium 4.1 mEq/L (3.5-5.1); Sodium 137 mEq/L (136-145); eGFR For African Americans > 60 (> 60); eGFR For Non-African Americans > 60 (> 60)
[2020-03-25] MEDS: *HR* Heparin 5,000 UNIT/ML VIAL SQ SCH ×2 (06:20→17:10)
[2020-03-25] MEDS: Gabapentin 300 MG CAPSULE PO SCH ×3 (08:30→21:03)
[2020-03-25] MEDS: amLODIPine 5 MG TABLET PO SCH (08:31)
[2020-03-25] MEDS: Lactobacillus 1 EACH CAP.SPRINK PO SCH ×2 (08:31→21:03)
[2020-03-25] MEDS: Aspirin 81 MG TAB.CHEW PO SCH (08:31)
[2020-03-25] MEDS: Piperacillin/Tazobactam 3.375 GM in 0.9 % Sodium Chloride Mini Bag 100 ML IVPB SCH ×2 (08:31→17:12)
[2020-03-25] MEDS: Insulin LISPRO 300 UNITS/3 ML VIAL SQ SCH ×4 (08:32→21:04)
[2020-03-25] MEDS ORDERED: Furosemide 40 MG TABLET PO SCH (09:00)
[2020-03-25] MEDS ORDERED: Metoprolol XL (24 HR) Succ 25 MG TAB.ER.24H PO SCH (09:00)
[2020-03-25] MEDS: *HR* HYDROcodone/Acet 5/325 mg TABLET PO PRN (13:03)
[2020-03-25] MEDS: Insulin NPH 100 UNIT/ML (x5UNIT) SQ SCH ×2 (17:11→21:04)
[2020-03-25] MEDS: Patient Taking Own Medication 1 EACH IT SCH (17:11)
[2020-03-25] MEDS: Vancomycin 1,500 MG/265 ML IV.SOLN IVPB SCH (17:12)
[2020-03-25] MEDS ORDERED: Neosporin OINT 15 GM TUBE TP PRN (21:23)
[2020-03-26] MEDS: Piperacillin/Tazobactam 3.375 GM in 0.9 % Sodium Chloride Mini Bag 100 ML IVPB SCH ×4 (00:23→23:43)
[2020-03-26] MEDS: Baclofen 10 MG TABLET PO PRN (00:23)
[2020-03-26] MEDS: *HR* Heparin 5,000 UNIT/ML VIAL SQ SCH ×2 (06:18→17:05)
[2020-03-26 07:55] LABS: Potassium 4.1 mEq/L (3.5-5.1)
[2020-03-26] MEDS: Aspirin 81 MG TAB.CHEW PO SCH (08:40)
[2020-03-26] MEDS: Lactobacillus 1 EACH CAP.SPRINK PO SCH ×2 (08:40→20:34)
[2020-03-26] MEDS: Gabapentin 300 MG CAPSULE PO SCH ×3 (08:40→20:34)
[2020-03-26] MEDS: amLODIPine 5 MG TABLET PO SCH (08:41)
[2020-03-26] MEDS: Insulin LISPRO 300 UNITS/3 ML VIAL SQ SCH ×4 (08:42→20:37)
[2020-03-26] MEDS: Insulin NPH 100 UNIT/ML (x5UNIT) SQ SCH ×2 (08:42→20:39)
[2020-03-26] MEDS ORDERED: Ringers Solution, Lactated 1,000 ML IVC SCH (08:45)
[2020-03-26] MEDS: Vancomycin 1,500 MG/265 ML IV.SOLN IVPB SCH (17:06)
[2020-03-26] MEDS: Patient Taking Own Medication 1 EACH IT SCH (17:07)
[2020-03-27] MEDS: Baclofen 10 MG TABLET PO PRN (04:12)
[2020-03-27] MEDS: *HR* Heparin 5,000 UNIT/ML VIAL SQ SCH ×2 (05:36→17:16)
[2020-03-27] MEDS: Piperacillin/Tazobactam 3.375 GM in 0.9 % Sodium Chloride Mini Bag 100 ML IVPB SCH ×3 (07:23→23:51)
[2020-03-27] MEDS: amLODIPine 5 MG TABLET PO SCH (07:29)
[2020-03-27] MEDS: Gabapentin 300 MG CAPSULE PO SCH ×3 (07:29→20:38)
[2020-03-27] MEDS: Lactobacillus 1 EACH CAP.SPRINK PO SCH ×2 (07:29→20:38)
[2020-03-27] MEDS: Aspirin 81 MG TAB.CHEW PO SCH (07:29)
[2020-03-27] MEDS: Insulin LISPRO 300 UNITS/3 ML VIAL SQ SCH ×4 (07:34→20:39)
[2020-03-27] MEDS: Insulin NPH 100 UNIT/ML (x5UNIT) SQ SCH ×2 (08:49→20:39)
[2020-03-27 09:56] LABS: Calcium 8.6 mg/dL (8.6-10.3); Potassium 4.2 mEq/L (3.5-5.1)
[2020-03-27] MEDS ORDERED: 0.9 % Sodium Chloride 1,000 ML IVC SCH (12:15)
[2020-03-27] MEDS: Vancomycin 1,500 MG/265 ML IV.SOLN IVPB SCH (14:16)
[2020-03-27] MEDS: Patient Taking Own Medication 1 EACH IT SCH (14:21)
[2020-03-28] MEDS: *HR* Heparin 5,000 UNIT/ML VIAL SQ SCH (06:04)
[2020-03-28] MEDS: Insulin LISPRO 300 UNITS/3 ML VIAL SQ SCH ×2 (07:35→11:36)
[2020-03-28] MEDS: Insulin NPH 100 UNIT/ML (x5UNIT) SQ SCH (07:36)
[2020-03-28] MEDS: Gabapentin 300 MG CAPSULE PO SCH (07:36)
[2020-03-28] MEDS: amLODIPine 5 MG TABLET PO SCH (07:36)
[2020-03-28] MEDS: Piperacillin/Tazobactam 3.375 GM in 0.9 % Sodium Chloride Mini Bag 100 ML IVPB SCH (07:36)
[2020-03-28] MEDS: Aspirin 81 MG TAB.CHEW PO SCH (07:36)
[2020-03-28] MEDS: Lactobacillus 1 EACH CAP.SPRINK PO SCH (07:36)
[2020-03-28 09:57] LABS: BUN/Creatinine Ratio 20 (6-26); Blood Urea Nitrogen 25 mg/dL (8-23); Calcium 8.7 mg/dL (8.6-10.3); Carbon Dioxide 30 mEq/L (23-29); Chloride 104 mEq/L (98-107); Glucose 94 mg/dL (70-105); Osmolality,Calculated 296 (280-300); Potassium 3.8 mEq/L (3.5-5.1); Sodium 141 mEq/L (136-145); eGFR For African Americans > 60 (> 60); eGFR For Non-African Americans 56 (> 60)
[2020-03-28 11:37] VITALS: BP 123/69
[2020-03-28] MEDS ORDERED: Aminoglycoside Consult 1 EACH MC ONE (17:04)
== END 2020-03-28 17:05 | disposition home health service (06) | DRG 603 ==
LOC: 3ANU 12:57 → EMEROOARM 12:57 → SUATTDRO 15:57 → 3ANU 16:43
PROVIDERS: ADMIT Internal Medicine; ATTEND Internal Medicine

== ENCOUNTER 2020-07-20 11:49 | Inpatient (IN) ==
[2020-07-20 12:52] LABS: Hematocrit 34.6 % (37.5-50.1); Mean Platelet Volume 12.5 fL (9.4-12.4); Red Cell Distribution Width 14.8 % (11.5-14.5)
[2020-07-20 12:53] LABS: Bilirubin,Urine Negative (Negative); Blood,Urine Negative (Negative); Clarity,Urine Clear (Clear); Color,Urine Light-Yellow (Yellow); Glucose,Urine (UA) >=1000 mg/dL (Normal); Hyaline Casts,Urine Few per lpf (None Seen); Ketones,Urine Negative (Negative); Leukocyte Esterase,Urine Negative (Negative); Nitrite,Urine Negative (Negative); Protein,Urine Negative (Neg-Trace); RBC,Urine 0-3 per hpf (0-3); Specific Gravity,Urine 1.012 (1.010-1.025); Squamous Epithelial Cell,Urine Few per hpf (None-Few); Urobilinogen,Urine Normal (Normal); WBC,Urine 0-3 per hpf (0-3)
[2020-07-20 12:54] LABS: Basophils # 0.1 K/mcL (0.0-0.2); Basophils % 0.9 %; Eosinophils # 0.6 K/mcL (0.0-0.6); Immature Granulocytes % 1.6 % (0-4); Immature Platelets 10.9 % (1.1-6.1); Lymphocytes # 1.3 K/mcL (0.6-4.6); Lymphocytes % 14.8 %; Mean Corpuscular HGB Conc 31.8 g/dL (31.6-35.5); Mean Corpuscular Hemoglobin 29.3 pg (28.0-33.3); Mean Corpuscular Volume 92.3 fL (83.0-100.0); Monocytes # 0.7 K/mcL (0.0-1.3); Monocytes % 7.9 %; Neutrophils # 5.8 K/mcL (1.6-8.9); Red Blood Count 3.75 M/mcL (4.19-5.50); Segmented Neutrophils % 67.8 %; White Blood Count 8.6 K/mcL (4.3-11.1)
[2020-07-20 12:57] LABS: VBG HCO3 32 mEq/L (21-27); VBG PCO2 62 mmHg (41-51); VBG PH 7.33 pH Units (7.32-7.42); VBG PO2 63 mmHg (25-50)
[2020-07-20 12:57] LABS: Platelet Count 97 K/mcL (140-400)
[2020-07-20] MEDS ORDERED: cefTRIAXone 1,000 MG in Water for inj. (sterile) 10 ML IVP ONE (13:10)
[2020-07-20] MEDS ORDERED: Azithromycin 500 MG in 0.9 % Sodium Chloride 250 ML IVPB ONE (13:11)
[2020-07-20 13:16] LABS: Albumin 3.9 g/dL (3.5-5.7); Albumin/Globulin Ratio 1.1 (1.1-2.2); Bilirubin,Total 0.7 mg/dL (0.3-1.0); Calcium 9.2 mg/dL (8.6-10.3); Globulin 3.5 g/dL (2.4-3.5); Total Protein 7.4 g/dL (6.4-8.9)
[2020-07-20] MEDS ORDERED: Insulin Regular, Human 100 UNIT/ML SQ ONE (13:19)
[2020-07-20] MEDS ORDERED: Naloxone 0.4 MG/ML INJ IVP PRN (15:25)
[2020-07-20] MEDS ORDERED: Ondansetron ODT 4 MG TAB.RAPDIS SL PRN (15:25)
[2020-07-20] MEDS ORDERED: 0.9 % Sodium Chloride 1,000 ML IVC ONE (15:29)
[2020-07-20] MEDS ORDERED: 0.9 % Sodium Chloride 1,000 ML IVC SCH (15:30)
[2020-07-20] MEDS ORDERED: Ipratropium/Albuterol Neb 3 ML IH PRN (15:34)
[2020-07-20] MEDS ORDERED: *HR* Dextrose 50 % in Water (Vial) 50 ML VIAL IVP PRN (15:36)
[2020-07-20] MEDS ORDERED: D5% in Water 1,000 ML IVC PRN (15:36)
[2020-07-20] MEDS ORDERED: Dextrose Gel 15 GM/37.5 ML TUBE PO PRN ×2 (15:36)
[2020-07-20 15:52] LABS: Adenovirus Not Detected (Not Detect); Bordetella Pertussis Not Detected (Not Detect); Chlamydophila pneumoniae Not Detected (Not Detect); Coronavirus 229E Not Detected (Not Detect); Coronavirus HKU1 Not Detected (Not Detect); Coronavirus NL63 Not Detected (Not Detect); Coronavirus OC43 Not Detected (Not Detect); Human Metapneumovirus Not Detected (Not Detect); Human Rhinovirus/Enterovirus Not Detected (Not Detect); Influenza A Subtype 2009 H1 Not Detected (Not Detect); Influenza B Not Detected (Not Detect); Mycoplasma pneumoniae Not Detected (Not Detect); Parainfluenza Virus 1 Not Detected (Not Detect); Parainfluenza Virus 2 Not Detected (Not Detect); Parainfluenza Virus 3 Not Detected (Not Detect); Parainfluenza Virus 4 Not Detected (Not Detect); Respiratory Syncytial Virus Not Detected (Not Detect); SARS-CoV-2 Not Detected (Not Detect)
[2020-07-20] MEDS: *HR* Heparin 5,000 UNIT/ML VIAL SQ SCH (18:04)
[2020-07-20] MEDS: Insulin LISPRO 300 UNITS/3 ML VIAL SQ SCH ×2 (18:05→21:04)
[2020-07-21 01:49] LABS: Eosinophils % 7.5 %; Red Cell Distribution Width 14.9 % (11.5-14.5)
[2020-07-21 01:50] LABS: Basophils # 0.1 K/mcL (0.0-0.2); Eosinophils # 0.6 K/mcL (0.0-0.6); Hemoglobin 11.1 g/dL (12.9-16.9); Immature Granulocytes % 1.2 % (0-4); Immature Platelets 11.3 % (1.1-6.1); Lymphocytes # 1.4 K/mcL (0.6-4.6); Lymphocytes % 17.2 %; Mean Corpuscular HGB Conc 31.7 g/dL (31.6-35.5); Mean Corpuscular Hemoglobin 29.3 pg (28.0-33.3); Mean Corpuscular Volume 92.3 fL (83.0-100.0); Mean Platelet Volume 12.4 fL (9.4-12.4); Monocytes # 0.7 K/mcL (0.0-1.3); Monocytes % 8.3 %; Neutrophils # 5.4 K/mcL (1.6-8.9); Red Blood Count 3.79 M/mcL (4.19-5.50); Segmented Neutrophils % 64.8 %; White Blood Count 8.3 K/mcL (4.3-11.1)
[2020-07-21 01:53] LABS: Platelet Count 89 K/mcL (140-400)
[2020-07-21 02:09] LABS: BUN/Creatinine Ratio 29 (6-26); Blood Urea Nitrogen 37 mg/dL (8-23); Calcium 8.9 mg/dL (8.6-10.3); Carbon Dioxide 29 mEq/L (23-29); Chloride 100 mEq/L (98-107); Glucose 289 mg/dL (70-105); Osmolality,Calculated 301 (280-300); Potassium 4.3 mEq/L (3.5-5.1); Sodium 136 mEq/L (136-145); eGFR For African Americans > 60 (> 60); eGFR For Non-African Americans 55 (> 60)
[2020-07-21] MEDS: *HR* Heparin 5,000 UNIT/ML VIAL SQ SCH ×2 (05:02→18:01)
[2020-07-21] MEDS: cefTRIAXone 1,000 MG in Water for inj. (sterile) 10 ML IVP SCH (09:04)
[2020-07-21] MEDS: Azithromycin 500 MG in 0.9 % Sodium Chloride 250 ML IVPB SCH (09:05)
[2020-07-21] MEDS: Insulin LISPRO 300 UNITS/3 ML VIAL SQ SCH ×4 (09:05→21:34)
[2020-07-21] MEDS ORDERED: INTRATHECAL PAIN PUMP IT PRN (12:45)
[2020-07-21] MEDS ORDERED: Insulin DETEMIR 100 UNIT/ML X5UNITS SQ SCH (21:00)
[2020-07-22] MEDS: *HR* Heparin 5,000 UNIT/ML VIAL SQ SCH ×3 (06:02→17:52)
[2020-07-22 06:06] LABS: Hemoglobin 11.5 g/dL (12.9-16.9); Red Cell Distribution Width 14.9 % (11.5-14.5)
[2020-07-22 06:08] LABS: Basophils # 0.1 K/mcL (0.0-0.2); Eosinophils # 0.6 K/mcL (0.0-0.6); Eosinophils % 7.2 %; Hematocrit 35.8 % (37.5-50.1); Immature Granulocytes % 1.1 % (0-4); Immature Platelets 10.7 % (1.1-6.1); Lymphocytes # 1.4 K/mcL (0.6-4.6); Lymphocytes % 17.5 %; Mean Corpuscular HGB Conc 32.1 g/dL (31.6-35.5); Mean Corpuscular Hemoglobin 29.5 pg (28.0-33.3); Mean Corpuscular Volume 91.8 fL (83.0-100.0); Mean Platelet Volume 11.7 fL (9.4-12.4); Monocytes # 0.6 K/mcL (0.0-1.3); Monocytes % 7.5 %; Neutrophils # 5.4 K/mcL (1.6-8.9); Segmented Neutrophils % 65.7 %; White Blood Count 8.2 K/mcL (4.3-11.1)
[2020-07-22 06:14] LABS: Platelet Count 88 K/mcL (140-400)
[2020-07-22 06:25] LABS: BUN/Creatinine Ratio 21 (6-26); Blood Urea Nitrogen 23 mg/dL (8-23); Carbon Dioxide 31 mEq/L (23-29); Chloride 100 mEq/L (98-107); Glucose 220 mg/dL (70-105); Osmolality,Calculated 292 (280-300); Potassium 4.3 mEq/L (3.5-5.1); Sodium 136 mEq/L (136-145); eGFR For African Americans > 60 (> 60); eGFR For Non-African Americans > 60 (> 60)
[2020-07-22] MEDS: Azithromycin 500 MG in 0.9 % Sodium Chloride 250 ML IVPB SCH (09:01)
[2020-07-22] MEDS: cefTRIAXone 1,000 MG in Water for inj. (sterile) 10 ML IVP SCH (09:02)
[2020-07-22] MEDS: Insulin LISPRO 300 UNITS/3 ML VIAL SQ SCH ×5 (09:05→21:05)
[2020-07-22] MEDS: amLODIPine 5 MG TABLET PO SCH (09:13)
[2020-07-22] MEDS: Aspirin 81 MG TAB.CHEW PO SCH (09:13)
[2020-07-22] MEDS: Loratadine 10 MG TABLET PO SCH (09:14)
[2020-07-22] MEDS ORDERED: Perflutren Lipid Microsphere 1.3 ML in 0.9 % Sodium Chloride 8.7 ML IVP PRN (13:57)
[2020-07-22] MEDS ORDERED: Isovue-370 500 ML BOTTLE IVP ONE (13:57)
[2020-07-22] MEDS: Furosemide 20 MG/2 ML VIAL IVP SCH ×2 (14:57→21:03)
[2020-07-22] MEDS: MethylPREDNISolone 40 MG/ML VIAL IVP SCH (15:54)
[2020-07-22] MEDS: Insulin DETEMIR 100 UNIT/ML X5UNITS SQ SCH (21:04)
[2020-07-23 05:33] LABS: Eosinophils % 0.2 %; Mean Corpuscular HGB Conc 32.3 g/dL (31.6-35.5); Mean Platelet Volume 12.2 fL (9.4-12.4); Monocytes % 4.3 %; Red Cell Distribution Width 14.3 % (11.5-14.5)
[2020-07-23 05:35] LABS: Basophils # 0.1 K/mcL (0.0-0.2); Basophils % 0.5 %; Hematocrit 36.8 % (37.5-50.1); Hemoglobin 11.9 g/dL (12.9-16.9); Immature Granulocytes % 2.4 % (0-4); Immature Platelets 11.2 % (1.1-6.1); Lymphocytes # 1.1 K/mcL (0.6-4.6); Lymphocytes % 10.4 %; Mean Corpuscular Hemoglobin 29.2 pg (28.0-33.3); Mean Corpuscular Volume 90.2 fL (83.0-100.0); Monocytes # 0.5 K/mcL (0.0-1.3); Neutrophils # 8.7 K/mcL (1.6-8.9); Red Blood Count 4.08 M/mcL (4.19-5.50); Segmented Neutrophils % 82.2 %; White Blood Count 10.6 K/mcL (4.3-11.1)
[2020-07-23 05:47] LABS: BUN/Creatinine Ratio 24 (6-26); Blood Urea Nitrogen 31 mg/dL (8-23); Calcium 8.9 mg/dL (8.6-10.3); Carbon Dioxide 27 mEq/L (23-29); Chloride 93 mEq/L (98-107); Glucose 373 mg/dL (70-105); Osmolality,Calculated 294 (280-300); Platelet Count 95 K/mcL (140-400); Potassium 4.8 mEq/L (3.5-5.1); Sodium 131 mEq/L (136-145); eGFR For African Americans > 60 (> 60); eGFR For Non-African Americans 54 (> 60)
[2020-07-23] MEDS: *HR* Heparin 5,000 UNIT/ML VIAL SQ SCH ×2 (05:58→17:11)
[2020-07-23] MEDS: MethylPREDNISolone 40 MG/ML VIAL IVP SCH ×2 (05:58→17:11)
[2020-07-23] MEDS: Insulin LISPRO 300 UNITS/3 ML VIAL SQ SCH ×7 (10:33→20:41)
[2020-07-23] MEDS: Aspirin 81 MG TAB.CHEW PO SCH (10:37)
[2020-07-23] MEDS: Loratadine 10 MG TABLET PO SCH (10:38)
[2020-07-23] MEDS: Furosemide 20 MG/2 ML VIAL IVP SCH ×2 (10:38→20:42)
[2020-07-23] MEDS: amLODIPine 5 MG TABLET PO SCH (10:39)
[2020-07-23] MEDS: cefTRIAXone 1,000 MG in Water for inj. (sterile) 10 ML IVP SCH (10:40)
[2020-07-23] MEDS: Azithromycin 500 MG in 0.9 % Sodium Chloride 250 ML IVPB SCH (10:43)
[2020-07-23] MEDS: Insulin DETEMIR 100 UNIT/ML X5UNITS SQ SCH (11:37)
[2020-07-23] MEDS ORDERED: Insulin DETEMIR 100 UNIT/ML X5UNITS SQ SCH (21:00)
[2020-07-23] MEDS ORDERED: *HR* Dextrose 50 % in Water (Vial) 50 ML VIAL IVP PRN (23:28)
[2020-07-24] MEDS: 0.9 % Sodium Chloride 1,000 ML IVC SCH ×2 (00:42→20:25)
[2020-07-24] MEDS: Insulin Human Regular 100 UNIT in 0.9 % Sodium Chloride 100 ML IVC SCH ×2 (00:43→06:54)
[2020-07-24] MEDS: *HR* Heparin 5,000 UNIT/ML VIAL SQ SCH ×2 (05:54→17:19)
[2020-07-24] MEDS: MethylPREDNISolone 40 MG/ML VIAL IVP SCH (05:54)
[2020-07-24 06:46] LABS: Basophils % 0.2 %; Eosinophils % 0.1 %; Hematocrit 37.4 % (37.5-50.1); Hemoglobin 12.6 g/dL (12.9-16.9); Immature Granulocytes % 2.1 % (0-4); Lymphocytes # 1.2 K/mcL (0.6-4.6); Lymphocytes % 7.4 %; Mean Corpuscular HGB Conc 33.7 g/dL (31.6-35.5); Mean Corpuscular Hemoglobin 30.1 pg (28.0-33.3); Mean Corpuscular Volume 89.3 fL (83.0-100.0); Mean Platelet Volume 11.9 fL (9.4-12.4); Monocytes # 1.1 K/mcL (0.0-1.3); Monocytes % 6.7 %; Neutrophils # 13.2 K/mcL (1.6-8.9); Platelet Count 116 K/mcL (140-400); Red Blood Count 4.19 M/mcL (4.19-5.50); Red Cell Distribution Width 14.4 % (11.5-14.5); Segmented Neutrophils % 83.5 %; White Blood Count 15.8 K/mcL (4.3-11.1)
[2020-07-24 07:07] LABS: BUN/Creatinine Ratio 30 (6-26); Blood Urea Nitrogen 41 mg/dL (8-23); Calcium 9.5 mg/dL (8.6-10.3); Carbon Dioxide 27 mEq/L (23-29); Chloride 96 mEq/L (98-107); Glucose 153 mg/dL (70-105); Osmolality,Calculated 295 (280-300); Potassium 4.2 mEq/L (3.5-5.1); Sodium 136 mEq/L (136-145); eGFR For African Americans > 60 (> 60); eGFR For Non-African Americans 51 (> 60)
[2020-07-24] MEDS ORDERED: Insulin LISPRO 300 UNITS/3 ML VIAL SQ SCH ×2 (08:00→21:00)
[2020-07-24] MEDS: Doxycycline 100 MG CAPSULE PO SCH ×2 (08:29→20:33)
[2020-07-24] MEDS: Loratadine 10 MG TABLET PO SCH (08:29)
[2020-07-24] MEDS: Furosemide 20 MG/2 ML VIAL IVP SCH ×2 (08:29→20:33)
[2020-07-24] MEDS: Aspirin 81 MG TAB.CHEW PO SCH (08:29)
[2020-07-24] MEDS: amLODIPine 5 MG TABLET PO SCH (08:29)
[2020-07-24] MEDS: Insulin LISPRO 300 UNITS/3 ML VIAL SQ SCH ×4 (08:30→17:18)
[2020-07-24] MEDS ORDERED: Insulin DETEMIR 100 UNIT/ML X5UNITS SQ SCH ×2 (09:00→21:00)
[2020-07-24] MEDS ORDERED: Furosemide 40 MG/4 ML VIAL IVP SCH (09:00)
[2020-07-24] MEDS ORDERED: Insulin LISPRO 300 UNITS/3 ML VIAL SQ ONE (15:59)
[2020-07-24 17:48] LABS: Potassium 4.6 mEq/L (3.5-5.1)
[2020-07-24] MEDS ORDERED: 0.9 % Sodium Chloride 1,000 ML IVC ONE (17:51)
[2020-07-24] MEDS ORDERED: Insulin Human Regular 10 UNIT in 0.9 % Sodium Chloride 10 ML IV ONE (17:59)
[2020-07-24] MEDS: Insulin DETEMIR 100 UNIT/ML X5UNITS SQ SCH (20:35)
[2020-07-25] MEDS: *HR* Heparin 5,000 UNIT/ML VIAL SQ SCH (06:24)
[2020-07-25 08:34] VITALS: BP 132/71
[2020-07-25] MEDS: Insulin LISPRO 300 UNITS/3 ML VIAL SQ SCH ×4 (08:37→12:50)
[2020-07-25] MEDS: Aspirin 81 MG TAB.CHEW PO SCH (08:38)
[2020-07-25] MEDS: Doxycycline 100 MG CAPSULE PO SCH (08:38)
[2020-07-25] MEDS: amLODIPine 5 MG TABLET PO SCH (08:39)
[2020-07-25] MEDS: Loratadine 10 MG TABLET PO SCH (08:39)
[2020-07-25] MEDS: Furosemide 20 MG/2 ML VIAL IVP SCH (08:39)
[2020-07-25] MEDS: Insulin DETEMIR 100 UNIT/ML X5UNITS SQ SCH (08:39)
[2020-07-25 08:50] LABS: Basophils % 0.3 %; Hematocrit 38.1 % (37.5-50.1)
[2020-07-25 08:52] LABS: Eosinophils # 0.1 K/mcL (0.0-0.6); Hemoglobin 12.4 g/dL (12.9-16.9); Immature Granulocytes % 1.9 % (0-4); Immature Platelets 11.1 % (1.1-6.1); Lymphocytes # 1.6 K/mcL (0.6-4.6); Lymphocytes % 13.5 %; Mean Corpuscular HGB Conc 32.5 g/dL (31.6-35.5); Mean Corpuscular Hemoglobin 29.5 pg (28.0-33.3); Mean Corpuscular Volume 90.5 fL (83.0-100.0); Mean Platelet Volume 12.1 fL (9.4-12.4); Monocytes # 0.8 K/mcL (0.0-1.3); Red Blood Count 4.21 M/mcL (4.19-5.50); Red Cell Distribution Width 14.6 % (11.5-14.5); Segmented Neutrophils % 76.3 %; White Blood Count 11.8 K/mcL (4.3-11.1)
[2020-07-25 08:53] LABS: Platelet Count 90 K/mcL (140-400)
[2020-07-25] MEDS ORDERED: predniSONE 20 MG TABLET PO SCH (09:00)
[2020-07-25 09:01] LABS: BUN/Creatinine Ratio 31 (6-26); Blood Urea Nitrogen 44 mg/dL (8-23); Calcium 8.8 mg/dL (8.6-10.3); Carbon Dioxide 30 mEq/L (23-29); Chloride 100 mEq/L (98-107); Glucose 178 mg/dL (70-105); Osmolality,Calculated 300 (280-300); Sodium 137 mEq/L (136-145); eGFR For African Americans > 60 (> 60); eGFR For Non-African Americans 50 (> 60)
== END 2020-07-25 13:40 | disposition home or self-care (01) | DRG 602 ==
LOC: EMEROOARM 11:49 → 3ANU 16:30 → SUATTDRO 16:30 → 3ANU 17:49
PROVIDERS: ADMIT Family Medicine; ATTEND Internal Medicine

== ENCOUNTER 2020-08-01 06:31 | Observation (INO) ==
[2020-08-01] MEDS ORDERED: *HR* FentaNYL (PF) 100 MCG/2 ML VIAL IVP ONE (06:56)
[2020-08-01] MEDS ORDERED: *HR* FentaNYL (PF) 100 MCG/2 ML VIAL IM ONE (07:08)
[2020-08-01 07:13] LABS: Basophils # 0.1 K/mcL (0.0-0.2); Basophils % 0.7 %; Eosinophils # 0.5 K/mcL (0.0-0.6); Eosinophils % 4.2 %; Hematocrit 38.4 % (37.5-50.1); Hemoglobin 12.4 g/dL (12.9-16.9); Immature Granulocytes % 1.6 % (0-4); Lymphocytes # 1.4 K/mcL (0.6-4.6); Lymphocytes % 11.5 %; Mean Corpuscular HGB Conc 32.3 g/dL (31.6-35.5); Mean Corpuscular Hemoglobin 29.8 pg (28.0-33.3); Mean Corpuscular Volume 92.3 fL (83.0-100.0); Mean Platelet Volume 11.7 fL (9.4-12.4); Monocytes # 1.4 K/mcL (0.0-1.3); Monocytes % 10.8 %; Neutrophils # 8.9 K/mcL (1.6-8.9); Red Blood Count 4.16 M/mcL (4.19-5.50); Red Cell Distribution Width 14.9 % (11.5-14.5); Segmented Neutrophils % 71.2 %; White Blood Count 12.5 K/mcL (4.3-11.1)
[2020-08-01 07:14] LABS: Platelet Count 86 K/mcL (140-400)
[2020-08-01 07:34] LABS: BUN/Creatinine Ratio 19 (6-26); Blood Urea Nitrogen 24 mg/dL (8-23); Calcium 9.1 mg/dL (8.6-10.3); Carbon Dioxide 26 mEq/L (23-29); Chloride 101 mEq/L (98-107); Glucose 237 mg/dL (70-105); Osmolality,Calculated 294 (280-300); Potassium 4.1 mEq/L (3.5-5.1); Sodium 136 mEq/L (136-145); eGFR For African Americans > 60 (> 60); eGFR For Non-African Americans 55 (> 60)
[2020-08-01] MEDS ORDERED: Gadolinium Contrast Agent (WT Based) IV PRN (08:59)
[2020-08-01 09:13] LABS: C-Reactive Protein 77 mg/L (Less than 10)
[2020-08-01] MEDS ORDERED: Ampicillin/Sulbactam 3,000 MG in 0.9 % Sodium Chloride Mini Bag 100 ML IVPB ONE (09:58)
[2020-08-01] MEDS ORDERED: *HR* HYDROmorphone (PF) 1 MG/ML SYRINGE IVP STA (10:00)
[2020-08-01] MEDS ORDERED: Naloxone 0.4 MG/ML INJ IVP PRN (10:35)
[2020-08-01] MEDS ORDERED: Dextrose Gel 15 GM/37.5 ML TUBE PO PRN ×2 (10:38)
[2020-08-01] MEDS ORDERED: D5% in Water 1,000 ML IVC PRN (10:38)
[2020-08-01] MEDS ORDERED: *HR* Dextrose 50 % in Water (Vial) 50 ML VIAL IVP PRN (10:38)
[2020-08-01] MEDS: *HR* Heparin 5,000 UNIT/ML VIAL SQ SCH ×2 (12:55→20:42)
[2020-08-01] MEDS: Insulin LISPRO 300 UNITS/3 ML VIAL SQ SCH ×2 (12:55→17:41)
[2020-08-01] MEDS ORDERED: Acetaminophen 325 MG TABLET PO PRN (14:57)
[2020-08-01] MEDS ORDERED: Baclofen 10 MG TABLET PO PRN (15:43)
[2020-08-01] MEDS: HYDROMORPHONE IT SCH (20:45)
[2020-08-02 05:10] LABS: Red Cell Distribution Width 14.8 % (11.5-14.5)
[2020-08-02 05:12] LABS: Basophils # 0.1 K/mcL (0.0-0.2); Basophils % 0.9 %; Eosinophils # 0.6 K/mcL (0.0-0.6); Eosinophils % 6.4 %; Hematocrit 35.9 % (37.5-50.1); Hemoglobin 11.3 g/dL (12.9-16.9); Immature Granulocytes % 1.5 % (0-4); Immature Platelets 10.3 % (1.1-6.1); Lymphocytes # 1.4 K/mcL (0.6-4.6); Lymphocytes % 16.5 %; Mean Corpuscular HGB Conc 31.5 g/dL (31.6-35.5); Mean Corpuscular Hemoglobin 29.6 pg (28.0-33.3); Mean Platelet Volume 11.8 fL (9.4-12.4); Monocytes # 0.9 K/mcL (0.0-1.3); Monocytes % 10.4 %; Neutrophils # 5.6 K/mcL (1.6-8.9); Red Blood Count 3.82 M/mcL (4.19-5.50); Segmented Neutrophils % 64.3 %; White Blood Count 8.7 K/mcL (4.3-11.1)
[2020-08-02 05:19] LABS: Platelet Count 91 K/mcL (140-400)
[2020-08-02 05:24] LABS: BUN/Creatinine Ratio 17 (6-26); Blood Urea Nitrogen 20 mg/dL (8-23); Calcium 8.8 mg/dL (8.6-10.3); Carbon Dioxide 28 mEq/L (23-29); Chloride 102 mEq/L (98-107); Glucose 169 mg/dL (70-105); Osmolality,Calculated 291 (280-300); Potassium 4.3 mEq/L (3.5-5.1); Sodium 137 mEq/L (136-145); eGFR For African Americans > 60 (> 60); eGFR For Non-African Americans > 60 (> 60)
[2020-08-02] MEDS: *HR* Heparin 5,000 UNIT/ML VIAL SQ SCH ×3 (06:21→21:02)
[2020-08-02] MEDS: Insulin LISPRO 300 UNITS/3 ML VIAL SQ SCH ×3 (07:30→16:57)
[2020-08-02] MEDS: Loratadine 10 MG TABLET PO SCH (10:42)
[2020-08-02] MEDS: Furosemide 40 MG TABLET PO SCH (10:43)
[2020-08-02] MEDS: amLODIPine 5 MG TABLET PO SCH (10:43)
[2020-08-02] MEDS: Aspirin 81 MG TAB.CHEW PO SCH (10:43)
[2020-08-02] MEDS: HYDROMORPHONE IT SCH (16:58)
[2020-08-03] MEDS: *HR* Heparin 5,000 UNIT/ML VIAL SQ SCH (06:27)
[2020-08-03 07:14] VITALS: BP 113/65
[2020-08-03] MEDS: Loratadine 10 MG TABLET PO SCH (08:27)
[2020-08-03] MEDS: Aspirin 81 MG TAB.CHEW PO SCH (08:27)
[2020-08-03] MEDS: amLODIPine 5 MG TABLET PO SCH (08:27)
[2020-08-03] MEDS: Insulin LISPRO 300 UNITS/3 ML VIAL SQ SCH (08:27)
[2020-08-03] MEDS: Furosemide 40 MG TABLET PO SCH (08:27)
== END 2020-08-03 11:01 | disposition home or self-care (01) ==
LOC: 3BNU 06:31 → EMEROOARM 06:31 → 3BNU 12:00
PROVIDERS: ADMIT Internal Medicine; ATTEND Internal Medicine

== ENCOUNTER 2021-02-04 11:19 | Observation (INO) ==
[2021-02-04 11:50] LABS: Basophils # 0.1 K/mcL (0.0-0.2); Basophils % 0.7 %; Eosinophils # 0.5 K/mcL (0.0-0.6); Hematocrit 37.9 % (37.5-50.1); Hemoglobin 11.6 g/dL (12.9-16.9); Immature Granulocytes % 1.4 % (0-4); Lymphocytes # 1.7 K/mcL (0.6-4.6); Lymphocytes % 13.6 %; Mean Corpuscular HGB Conc 30.6 g/dL (31.6-35.5); Mean Corpuscular Volume 88.3 fL (83.0-100.0); Mean Platelet Volume 12.1 fL (9.4-12.4); Monocytes % 8.1 %; Neutrophils # 8.8 K/mcL (1.6-8.9); Platelet Count 121 K/mcL (140-400); Red Blood Count 4.29 M/mcL (4.19-5.50); Red Cell Distribution Width 14.8 % (11.5-14.5); Segmented Neutrophils % 72.2 %; White Blood Count 12.2 K/mcL (4.3-11.1)
[2021-02-04 12:12] LABS: BUN/Creatinine Ratio 30 (6-26); Blood Urea Nitrogen 42 mg/dL (8-23); Calcium 9.1 mg/dL (8.6-10.3); Carbon Dioxide 33 mEq/L (23-29); Chloride 97 mEq/L (98-107); Glucose 297 mg/dL (70-105); Osmolality,Calculated 306 (280-300); Potassium 4.4 mEq/L (3.5-5.1); Sodium 137 mEq/L (136-145); Troponin I < 0.03 ng/mL (< 0.04); eGFR For African Americans > 60 (> 60); eGFR For Non-African Americans 50 (> 60)
[2021-02-04] MEDS ORDERED: Ondansetron 4 MG/2 ML VIAL IVP PRN (14:09)
[2021-02-04] MEDS ORDERED: Naloxone 0.4 MG/ML INJ IVP PRN (14:09)
[2021-02-04] MEDS ORDERED: Perflutren Lipid Microsphere 1.3 ML in 0.9 % Sodium Chloride 8.7 ML IVP PRN (14:13)
[2021-02-04] MEDS ORDERED: Dextrose Gel 15 GM/37.5 ML TUBE PO PRN ×2 (14:19)
[2021-02-04] MEDS ORDERED: Nitroglycerin 0.4 MG TAB.SUBL SL PRN (14:19)
[2021-02-04] MEDS ORDERED: D5% in Water 1,000 ML IVC PRN (14:19)
[2021-02-04] MEDS ORDERED: *HR* Dextrose 50 % in Water (Vial) 50 ML VIAL IVP PRN (14:19)
[2021-02-04 15:00] LABS: Activated Partial Thrombo Time 31.6 Seconds (26.0-36.0)
[2021-02-04 15:01] LABS: Bilirubin,Urine Negative (Negative); Blood,Urine Negative (Negative); Clarity,Urine Clear (Clear); Color,Urine Yellow (Yellow); Glucose,Urine (UA) Normal (Normal); Ketones,Urine Negative (Negative); Leukocyte Esterase,Urine Negative (Negative); Nitrite,Urine Negative (Negative); PH,Urine 5.5 pH Units (5.0-8.0); Protein,Urine Negative (Neg-Trace); Specific Gravity,Urine 1.014 (1.010-1.025); Urobilinogen,Urine Normal (Normal)
[2021-02-04 15:06] LABS: INR 1.1
[2021-02-04 15:38] LABS: Estimated Average Glucose 197 mg/dl; Hemoglobin A1C 8.5 %
[2021-02-04] MEDS: Insulin LISPRO 300 UNITS/3 ML VIAL SUBQ SCH (18:21)
[2021-02-04] MEDS: *HR* Heparin 5,000 UNIT/ML VIAL SQ SCH (20:35)
[2021-02-04] MEDS ORDERED: Insulin LISPRO 300 UNITS/3 ML VIAL SUBQ SCH (21:00)
[2021-02-05 03:56] LABS: Basophils # 0.1 K/mcL (0.0-0.2); Basophils % 0.6 %; Eosinophils # 0.4 K/mcL (0.0-0.6); Eosinophils % 3.5 %; Hematocrit 37.3 % (37.5-50.1); Hemoglobin 11.3 g/dL (12.9-16.9); Immature Granulocytes % 1.1 % (0-4); Lymphocytes # 1.4 K/mcL (0.6-4.6); Lymphocytes % 12.3 %; Mean Corpuscular HGB Conc 30.3 g/dL (31.6-35.5); Mean Corpuscular Hemoglobin 26.8 pg (28.0-33.3); Mean Corpuscular Volume 88.4 fL (83.0-100.0); Mean Platelet Volume 12.5 fL (9.4-12.4); Monocytes # 0.9 K/mcL (0.0-1.3); Monocytes % 7.7 %; Neutrophils # 8.6 K/mcL (1.6-8.9); Platelet Count 109 K/mcL (140-400); Red Blood Count 4.22 M/mcL (4.19-5.50); Red Cell Distribution Width 14.8 % (11.5-14.5); Segmented Neutrophils % 74.8 %; White Blood Count 11.6 K/mcL (4.3-11.1)
[2021-02-05 04:10] LABS: Alanine Aminotransferase 41 Units/L (7-52); Albumin/Globulin Ratio 1.3 (1.1-2.2); Alkaline Phosphatase 75 Units/L (34-104); Aspartate Amino Transferase 52 Units/L (13-39); BUN/Creatinine Ratio 36 (6-26); Bilirubin,Total 0.5 mg/dL (0.3-1.0); Blood Urea Nitrogen 47 mg/dL (8-23); Carbon Dioxide 31 mEq/L (23-29); Chloride 100 mEq/L (98-107); Chol/HDL Ratio 5.4 (0-4.9); Cholesterol 207 mg/dL (< 200); Globulin 3.2 g/dL (2.4-3.5); Glucose 187 mg/dL (70-105); HDL Cholesterol 38 mg/dL (40-59); LDL Cholesterol,Calculated 115 mg/dL (< 100); Osmolality,Calculated 303 (280-300); Potassium 4.8 mEq/L (3.5-5.1); Sodium 138 mEq/L (136-145); Total Protein 7.2 g/dL (6.4-8.9); Triglycerides 268 mg/dL (< 150); eGFR For African Americans > 60 (> 60); eGFR For Non-African Americans 54 (> 60)
[2021-02-05] MEDS: *HR* Heparin 5,000 UNIT/ML VIAL SQ SCH ×2 (05:14→15:15)
[2021-02-05] MEDS ORDERED: Regadenoson 0.4 MG/5 ML SYRINGE IVP ONE (06:28)
[2021-02-05 06:57] VITALS: BP 136/68
[2021-02-05] MEDS: Insulin LISPRO 300 UNITS/3 ML VIAL SUBQ SCH ×2 (08:20→13:00)
[2021-02-05] MEDS ORDERED: Aspirin 81 MG TAB.CHEW PO SCH (09:00)
[2021-02-05] MEDS ORDERED: Isosorbide MONOnitrate (24 HR) 30 MG TAB.ER.24H PO SCH ×2 (15:00)
== END 2021-02-05 17:00 | disposition home or self-care (01) ==
LOC: EMEROOARM 11:19 → 3BNU 11:19 → SUATTDRO 14:01 → 3BNU 15:09
PROVIDERS: ADMIT General Practice; ATTEND Student in an Organized Health Care Education/Training Program

== ENCOUNTER 2021-06-16 14:26 | Inpatient (IN) ==
[2021-06-16] MEDS ORDERED: 0.9 % Sodium Chloride 500 ML IVC ONE (16:23)
[2021-06-16] MEDS ORDERED: cefTRIAXone 1,000 MG in 0.9 % Sodium Chloride Mini Bag 100 ML IVPB ONE (16:23)
[2021-06-16] MEDS ORDERED: *HR* FentaNYL (PF) 100 MCG/2 ML VIAL IVP ONE (16:25)
[2021-06-16 17:25] LABS: Basophils # 0.1 K/mcL (0.0-0.2); Eosinophils # 0.4 K/mcL (0.0-0.6); Eosinophils % 5.3 %; Hematocrit 33.2 % (37.5-50.1); Hemoglobin 9.7 g/dL (12.9-16.9); Lymphocytes # 1.2 K/mcL (0.6-4.6); Lymphocytes % 17.1 %; Mean Corpuscular HGB Conc 29.2 g/dL (31.6-35.5); Mean Corpuscular Hemoglobin 24.5 pg (28.0-33.3); Mean Corpuscular Volume 83.8 fL (83.0-100.0); Mean Platelet Volume 12.8 fL (9.4-12.4); Monocytes # 0.7 K/mcL (0.0-1.3); Monocytes % 10.1 %; Neutrophils # 4.6 K/mcL (1.6-8.9); Platelet Count 107 K/mcL (140-400); Red Blood Count 3.96 M/mcL (4.19-5.50); Red Cell Distribution Width 15.8 % (11.5-14.5); Segmented Neutrophils % 65.5 %
[2021-06-16 17:50] LABS: BUN/Creatinine Ratio 23 (6-26); Blood Urea Nitrogen 38 mg/dL (8-23); Calcium 9.3 mg/dL (8.6-10.3); Carbon Dioxide 33 mEq/L (23-29); Chloride 99 mEq/L (98-107); Glucose 204 mg/dL (70-105); Osmolality,Calculated 307 (280-300); Potassium 3.9 mEq/L (3.5-5.1); Sodium 141 mEq/L (136-145); Troponin I < 0.03 ng/mL (< 0.04); eGFR For African Americans 50 (> 60); eGFR For Non-African Americans 42 (> 60)
[2021-06-16] MEDS ORDERED: Ondansetron 4 MG/2 ML VIAL IVP PRN (20:44)
[2021-06-16] MEDS ORDERED: *HR* OxyCODONE Immed Rel 5 MG TABLET PO PRN (20:44)
[2021-06-16] MEDS ORDERED: Naloxone 0.4 MG/ML INJ IVP PRN (20:44)
[2021-06-16] MEDS ORDERED: Acetaminophen 325 MG TABLET PO PRN (20:44)
[2021-06-16] MEDS ORDERED: Ringers Solution, Lactated 1,000 ML IVC SCH (20:45)
[2021-06-16] MEDS ORDERED: D5% in Water 1,000 ML IVC PRN (21:04)
[2021-06-16] MEDS ORDERED: Dextrose Gel 15 GM/37.5 ML TUBE PO PRN ×2 (21:04)
[2021-06-16] MEDS ORDERED: *HR* Dextrose 50 % in Water (Vial) 50 ML VIAL IVP PRN (21:04)
[2021-06-16] MEDS: Vancomycin 1,500 MG/265 ML IV.SOLN IVPB SCH (23:04)
[2021-06-17 06:44] LABS: Basophils # 0.1 K/mcL (0.0-0.2); Basophils % 0.8 %; Eosinophils # 0.4 K/mcL (0.0-0.6); Hematocrit 31.3 % (37.5-50.1); Hemoglobin 9.4 g/dL (12.9-16.9); Immature Platelets 9.8 % (1.1-6.1); Lymphocytes # 1.3 K/mcL (0.6-4.6); Lymphocytes % 16.7 %; Mean Corpuscular Volume 83.2 fL (83.0-100.0); Monocytes # 0.8 K/mcL (0.0-1.3); Monocytes % 9.8 %; Neutrophils # 5.1 K/mcL (1.6-8.9); Platelet Count 98 K/mcL (140-400); Red Blood Count 3.76 M/mcL (4.19-5.50); Red Cell Distribution Width 15.6 % (11.5-14.5); Segmented Neutrophils % 66.7 %; White Blood Count 7.7 K/mcL (4.3-11.1)
[2021-06-17 06:49] LABS: INR 1.1; Prothrombin Time 13.2 Seconds (9.4-12.1)
[2021-06-17 07:10] LABS: Calcium 9.2 mg/dL (8.6-10.3); Phosphorous 2.9 mg/dL (2.7-4.5); Potassium 4.2 mEq/L (3.5-5.1)
[2021-06-17] MEDS: cefTRIAXone 1,000 MG in Water for inj. (sterile) 10 ML IVP SCH (08:07)
[2021-06-17] MEDS: *HR* Heparin 5,000 UNIT/ML VIAL SQ SCH ×3 (08:20→21:37)
[2021-06-17] MEDS: Insulin LISPRO 300 UNITS/3 ML VIAL SUBQ SCH ×4 (08:26→21:33)
[2021-06-17 09:53] LABS: Bilirubin,Urine Negative (Negative); Blood,Urine Negative (Negative); Clarity,Urine Clear (Clear); Color,Urine Light-Yellow (Yellow); Glucose,Urine (UA) Normal (Normal); Ketones,Urine Negative (Negative); Leukocyte Esterase,Urine Negative (Negative); Nitrite,Urine Negative (Negative); PH,Urine 6.5 pH Units (5.0-8.0); Protein,Urine Negative (Neg-Trace); Specific Gravity,Urine 1.018 (1.010-1.025); Urobilinogen,Urine Normal (Normal)
[2021-06-17 10:03] LABS: Sodium, Urine 109.5 mEq/L
[2021-06-17 10:06] LABS: Protein/Creatinine Ratio,Urine 0.16 mg/mg (0.00-0.20)
[2021-06-17] MEDS: Isosorbide MONOnitrate (24 HR) 30 MG TAB.ER.24H PO SCH (13:37)
[2021-06-17] MEDS: Aspirin 81 MG TAB.CHEW PO SCH (13:37)
[2021-06-17] MEDS: amLODIPine 5 MG TABLET PO SCH (13:40)
[2021-06-17] MEDS: Insulin DETEMIR 100 UNIT/ML X5UNITS SUBQ SCH (21:33)
[2021-06-17] MEDS: *HR* HYDROcodone/Acet 5/325 mg TABLET PO PRN (21:33)
[2021-06-17] MEDS: Melatonin 3 MG TABLET PO PRN (21:33)
[2021-06-17] MEDS: Vancomycin 1,500 MG/265 ML IV.SOLN IVPB SCH (21:41)
[2021-06-18] MEDS: *HR* Heparin 5,000 UNIT/ML VIAL SQ SCH ×3 (06:19→21:13)
[2021-06-18 07:44] LABS: BUN/Creatinine Ratio 21 (6-26); Blood Urea Nitrogen 28 mg/dL (8-23); Calcium 8.6 mg/dL (8.6-10.3); Carbon Dioxide 28 mEq/L (23-29); Chloride 104 mEq/L (98-107); Glucose 222 mg/dL (70-105); Magnesium 1.7 mg/dL (1.6-2.6); Osmolality,Calculated 296 (280-300); Phosphorous 2.6 mg/dL (2.7-4.5); Potassium 4.2 mEq/L (3.5-5.1); Sodium 137 mEq/L (136-145); eGFR For African Americans > 60 (> 60); eGFR For Non-African Americans 53 (> 60)
[2021-06-18] MEDS: amLODIPine 5 MG TABLET PO SCH (08:07)
[2021-06-18] MEDS: cefTRIAXone 1,000 MG in Water for inj. (sterile) 10 ML IVP SCH (08:08)
[2021-06-18] MEDS: Isosorbide MONOnitrate (24 HR) 30 MG TAB.ER.24H PO SCH (08:08)
[2021-06-18] MEDS: Aspirin 81 MG TAB.CHEW PO SCH (08:08)
[2021-06-18] MEDS: Insulin LISPRO 300 UNITS/3 ML VIAL SUBQ SCH ×4 (08:09→21:12)
[2021-06-18] MEDS: Insulin DETEMIR 100 UNIT/ML X5UNITS SUBQ SCH ×2 (08:09→21:13)
[2021-06-18] MEDS ORDERED: Patient Taking Own Medication 1 EACH IT PRN (09:00)
[2021-06-18] MEDS: *HR* HYDROcodone/Acet 5/325 mg TABLET PO PRN (10:39)
[2021-06-18] MEDS: Melatonin 3 MG TABLET PO PRN (21:11)
[2021-06-18] MEDS ORDERED: tiZANidine 4 MG TABLET PO ONE (21:30)
[2021-06-18] MEDS ORDERED: Vancomycin 1,750 MG/517.5 ML IV.SOLN IVPB SCH (22:00)
[2021-06-19] MEDS: *HR* Heparin 5,000 UNIT/ML VIAL SQ SCH (06:41)
[2021-06-19 07:25] VITALS: BP 136/76; PULSE 53; TEMP 98.1; O2SAT 99
[2021-06-19] MEDS: Isosorbide MONOnitrate (24 HR) 30 MG TAB.ER.24H PO SCH (08:44)
[2021-06-19] MEDS: Aspirin 81 MG TAB.CHEW PO SCH (08:44)
[2021-06-19] MEDS: cefTRIAXone 1,000 MG in Water for inj. (sterile) 10 ML IVP SCH (08:44)
[2021-06-19] MEDS: amLODIPine 5 MG TABLET PO SCH (08:44)
[2021-06-19] MEDS: Insulin LISPRO 300 UNITS/3 ML VIAL SUBQ SCH (08:45)
[2021-06-19] MEDS: Insulin DETEMIR 100 UNIT/ML X5UNITS SUBQ SCH (08:45)
[2021-06-19 10:11] LABS: BUN/Creatinine Ratio 16 (6-26); Blood Urea Nitrogen 19 mg/dL (8-23); Calcium 8.7 mg/dL (8.6-10.3); Carbon Dioxide 30 mEq/L (23-29); Chloride 102 mEq/L (98-107); Glucose 226 mg/dL (70-105); Osmolality,Calculated 295 (280-300); Potassium 4.3 mEq/L (3.5-5.1); Sodium 138 mEq/L (136-145); eGFR For African Americans > 60 (> 60); eGFR For Non-African Americans 59 (> 60)
== END 2021-06-19 12:03 | disposition home or self-care (01) | DRG 638 ==
LOC: EMEROOARM 14:26 → 3ANU 14:26 → SUATTDRO 06-17 12:06
PROVIDERS: ADMIT Internal Medicine; ATTEND Internal Medicine

== ENCOUNTER 2021-07-01 19:48 | Inpatient (IN) ==
[2021-07-01 20:49] LABS: Basophils # 0.1 K/mcL (0.0-0.2); Basophils % 1.1 %; Eosinophils # 0.5 K/mcL (0.0-0.6); Eosinophils % 6.5 %; Hematocrit 30.7 % (37.5-50.1); Immature Granulocytes % 0.8 % (0-4); Lymphocytes # 1.3 K/mcL (0.6-4.6); Lymphocytes % 17.2 %; Mean Corpuscular HGB Conc 29.3 g/dL (31.6-35.5); Mean Corpuscular Hemoglobin 24.5 pg (28.0-33.3); Mean Corpuscular Volume 83.4 fL (83.0-100.0); Mean Platelet Volume 10.6 fL (9.4-12.4); Monocytes # 0.6 K/mcL (0.0-1.3); Monocytes % 7.5 %; Platelet Count 111 K/mcL (140-400); Red Blood Count 3.68 M/mcL (4.19-5.50); Red Cell Distribution Width 15.9 % (11.5-14.5); Segmented Neutrophils % 66.9 %; White Blood Count 7.5 K/mcL (4.3-11.1)
[2021-07-01 21:08] LABS: Albumin 3.9 g/dL (3.5-5.7); Albumin/Globulin Ratio 1.1 (1.1-2.2); Bilirubin,Total 0.4 mg/dL (0.3-1.0); Calcium 9.1 mg/dL (8.6-10.3); Globulin 3.4 g/dL (2.4-3.5); Potassium 4.1 mEq/L (3.5-5.1); Total Protein 7.3 g/dL (6.4-8.9)
[2021-07-01] MEDS ORDERED: cefTRIAXone 1,000 MG in Water for inj. (sterile) 10 ML IVP ONE (21:41)
[2021-07-01] MEDS ORDERED: Vancomycin 1,500 MG/265 ML IV.SOLN IVPB ONE (22:15)
[2021-07-01] MEDS ORDERED: Ondansetron 4 MG/2 ML VIAL IVP PRN (22:18)
[2021-07-01] MEDS ORDERED: *HR* Promethazine 25 MG/ML VIAL IM PRN (22:18)
[2021-07-01] MEDS ORDERED: Acetaminophen 325 MG TABLET PO PRN (22:18)
[2021-07-01] MEDS ORDERED: Naloxone 0.4 MG/ML INJ IVP PRN (22:18)
[2021-07-01] MEDS ORDERED: *HR* HYDROcodone/Acet 5/325 mg TABLET PO PRN (22:18)
[2021-07-01 23:06] LABS: BUN/Creatinine Ratio 19 (6-26); Blood Urea Nitrogen 25 mg/dL (8-23); Carbon Dioxide 28 mEq/L (23-29); Chloride 103 mEq/L (98-107); Glucose 204 mg/dL (70-105); Osmolality,Calculated 298 (280-300); Potassium 4.1 mEq/L (3.5-5.1); Sodium 139 mEq/L (136-145); eGFR For African Americans > 60 (> 60); eGFR For Non-African Americans 53 (> 60)
[2021-07-02] MEDS: *HR* OxyCODONE Immed Rel 5 MG TABLET PO PRN ×2 (00:42→21:04)
[2021-07-02] MEDS ORDERED: Furosemide 20 MG/2 ML VIAL IVP ONE (01:36)
[2021-07-02 03:39] LABS: Basophils # 0.1 K/mcL (0.0-0.2); Basophils % 0.7 %; Eosinophils # 0.5 K/mcL (0.0-0.6); Eosinophils % 6.7 %; Hematocrit 29.8 % (37.5-50.1); Hemoglobin 8.9 g/dL (12.9-16.9); Immature Granulocytes % 0.8 % (0-4); Lymphocytes # 1.1 K/mcL (0.6-4.6); Lymphocytes % 15.3 %; Mean Corpuscular HGB Conc 29.9 g/dL (31.6-35.5); Mean Corpuscular Hemoglobin 24.7 pg (28.0-33.3); Mean Corpuscular Volume 82.8 fL (83.0-100.0); Mean Platelet Volume 11.4 fL (9.4-12.4); Monocytes # 0.5 K/mcL (0.0-1.3); Monocytes % 7.1 %; Neutrophils # 5.1 K/mcL (1.6-8.9); Platelet Count 108 K/mcL (140-400); Red Cell Distribution Width 15.9 % (11.5-14.5); Segmented Neutrophils % 69.4 %; White Blood Count 7.3 K/mcL (4.3-11.1)
[2021-07-02 03:59] LABS: Alanine Aminotransferase 28 Units/L (7-52); Albumin 3.7 g/dL (3.5-5.7); Albumin/Globulin Ratio 1.1 (1.1-2.2); Alkaline Phosphatase 76 Units/L (34-104); Aspartate Amino Transferase 42 Units/L (13-39); BUN/Creatinine Ratio 17 (6-26); Bilirubin,Total 0.4 mg/dL (0.3-1.0); Blood Urea Nitrogen 23 mg/dL (8-23); Calcium 8.8 mg/dL (8.6-10.3); Carbon Dioxide 29 mEq/L (23-29); Chloride 101 mEq/L (98-107); Globulin 3.3 g/dL (2.4-3.5); Glucose 280 mg/dL (70-105); Magnesium 1.7 mg/dL (1.6-2.6); Osmolality,Calculated 302 (280-300); Sodium 139 mEq/L (136-145); eGFR For African Americans > 60 (> 60); eGFR For Non-African Americans 53 (> 60)
[2021-07-02] MEDS ORDERED: D5% in Water 1,000 ML IVC PRN (08:15)
[2021-07-02] MEDS ORDERED: Dextrose Gel 15 GM/37.5 ML TUBE PO PRN ×2 (08:15)
[2021-07-02] MEDS ORDERED: *HR* Dextrose 50 % in Water (Vial) 50 ML VIAL IVP PRN (08:15)
[2021-07-02] MEDS: Insulin DETEMIR 100 UNIT/ML X5UNITS SUBQ SCH ×2 (09:47→20:59)
[2021-07-02] MEDS: Vancomycin 1,500 MG/265 ML IV.SOLN IVPB SCH (11:28)
[2021-07-02] MEDS: Insulin LISPRO 300 UNITS/3 ML VIAL SUBQ SCH ×2 (11:40→16:38)
[2021-07-02] MEDS: Baclofen 10 MG TABLET PO SCH ×2 (16:08→20:59)
[2021-07-02] MEDS: Piperacillin/Tazobactam 3.375 GM in 0.9 % Sodium Chloride Mini Bag 100 ML IVPB SCH (16:37)
[2021-07-02] MEDS: cloNIDine HCL 0.1 MG TABLET PO SCH (20:59)
[2021-07-02] MEDS: Melatonin 3 MG TABLET PO PRN (20:59)
[2021-07-03] MEDS: Piperacillin/Tazobactam 3.375 GM in 0.9 % Sodium Chloride Mini Bag 100 ML IVPB SCH ×3 (00:41→14:50)
[2021-07-03] MEDS: *HR* OxyCODONE Immed Rel 5 MG TABLET PO PRN ×2 (03:26→21:30)
[2021-07-03] MEDS: Multivit/Ca/Min/Fe/FA 1 TAB TABLET PO SCH (07:57)
[2021-07-03] MEDS: Baclofen 10 MG TABLET PO SCH ×3 (07:57→21:30)
[2021-07-03] MEDS: Furosemide 40 MG TABLET PO SCH (07:57)
[2021-07-03] MEDS: cloNIDine HCL 0.1 MG TABLET PO SCH ×2 (07:57→21:30)
[2021-07-03] MEDS: Aspirin 81 MG TAB.CHEW PO SCH (07:57)
[2021-07-03] MEDS: Loratadine 10 MG TABLET PO SCH (07:57)
[2021-07-03] MEDS: Insulin LISPRO 300 UNITS/3 ML VIAL SUBQ SCH ×3 (07:58→17:13)
[2021-07-03] MEDS: Insulin DETEMIR 100 UNIT/ML X5UNITS SUBQ SCH ×2 (07:59→21:30)
[2021-07-03 10:25] LABS: Calcium 8.9 mg/dL (8.6-10.3); Magnesium 1.6 mg/dL (1.6-2.6); Phosphorous 3.2 mg/dL (2.7-4.5); Potassium 4.4 mEq/L (3.5-5.1)
[2021-07-03] MEDS: Vancomycin 1,500 MG/265 ML IV.SOLN IVPB SCH (11:32)
[2021-07-03] MEDS: Melatonin 3 MG TABLET PO PRN (21:30)
[2021-07-03] MEDS: HYDROMORPHONE IT SCH (21:42)
[2021-07-04] MEDS: Piperacillin/Tazobactam 3.375 GM in 0.9 % Sodium Chloride Mini Bag 100 ML IVPB SCH ×3 (00:49→16:23)
[2021-07-04] MEDS: *HR* OxyCODONE Immed Rel 5 MG TABLET PO PRN ×2 (03:28→11:33)
[2021-07-04 06:18] LABS: Calcium 8.4 mg/dL (8.6-10.3); Magnesium 1.6 mg/dL (1.6-2.6); Phosphorous 3.4 mg/dL (2.7-4.5)
[2021-07-04] MEDS: Insulin LISPRO 300 UNITS/3 ML VIAL SUBQ SCH ×4 (08:08→16:29)
[2021-07-04] MEDS: Furosemide 40 MG TABLET PO SCH (08:09)
[2021-07-04] MEDS: Multivit/Ca/Min/Fe/FA 1 TAB TABLET PO SCH (08:09)
[2021-07-04] MEDS: cloNIDine HCL 0.1 MG TABLET PO SCH ×2 (08:09→22:36)
[2021-07-04] MEDS: Baclofen 10 MG TABLET PO SCH ×3 (08:10→22:37)
[2021-07-04] MEDS: Aspirin 81 MG TAB.CHEW PO SCH (08:10)
[2021-07-04] MEDS: Loratadine 10 MG TABLET PO SCH (08:10)
[2021-07-04] MEDS: Insulin DETEMIR 100 UNIT/ML X5UNITS SUBQ SCH ×2 (09:47→22:00)
[2021-07-04] MEDS: Vancomycin 1,500 MG/265 ML IV.SOLN IVPB SCH (11:08)
[2021-07-04] MEDS ORDERED: Bupivacaine/EPI 1:200k 0.25% 50 ML VIAL ONE (14:14)
[2021-07-04] MEDS ORDERED: Vancomycin 1,000 MG VIAL ONE (14:15)
[2021-07-04] MEDS: HYDROMORPHONE IT SCH (16:58)
[2021-07-04] MEDS ORDERED: Ondansetron 4 MG/2 ML VIAL IVP PRN (18:01)
[2021-07-04] MEDS ORDERED: *HR* HYDROmorphone PF 0.5 MG/0.5 ML SYRINGE IVP PRN (18:01)
[2021-07-04] MEDS ORDERED: *HR* FentaNYL (PF) 100 MCG/2 ML VIAL ONE (18:23)
[2021-07-04] MEDS ORDERED: *HR* Succinylcholine 200 MG/10 ML VIAL IVP ONE (18:23)
[2021-07-04] MEDS ORDERED: *HR* Propofol 200 MG/20 ML VIAL IVP ONE (18:23)
[2021-07-04] MEDS ORDERED: Lidocaine -MPF 2% 2 ML VIAL ONE (18:23)
[2021-07-04] MEDS ORDERED: Famotidine 20 MG/2 ML VIAL ONE (18:25)
[2021-07-04] MEDS ORDERED: Acetaminophen IV 1,000 MG/100 ML BAG IVPB ONE (18:25)
[2021-07-04] MEDS ORDERED: Lidocaine HCL 4 ML Topical Solution (Laryng-O-Jet Kit Sterile Pak) TP ONE (18:49)
[2021-07-04] MEDS ORDERED: EPHEDrine 50 MG/ML VIAL ONE (18:57)
[2021-07-04] MEDS ORDERED: *HR* Labetalol 20 MG/4 ML SYRINGE IVP PRN (20:57)
[2021-07-05] MEDS ORDERED: ceFAZolin 1,000 MG in 0.9 % Sodium Chloride Mini Bag 100 ML IVPB SCH
[2021-07-05 01:48] LABS: Red Cell Distribution Width 15.9 % (11.5-14.5)
[2021-07-05 01:50] LABS: Basophils # 0.1 K/mcL (0.0-0.2); Eosinophils # 0.5 K/mcL (0.0-0.6); Eosinophils % 6.9 %; Hematocrit 29.2 % (37.5-50.1); Hemoglobin 8.6 g/dL (12.9-16.9); Immature Granulocytes % 1.7 % (0-4); Lymphocytes # 0.9 K/mcL (0.6-4.6); Lymphocytes % 13.5 %; Mean Corpuscular HGB Conc 29.5 g/dL (31.6-35.5); Mean Corpuscular Volume 81.3 fL (83.0-100.0); Mean Platelet Volume 11.2 fL (9.4-12.4); Monocytes # 0.5 K/mcL (0.0-1.3); Monocytes % 7.4 %; Neutrophils # 4.8 K/mcL (1.6-8.9); Platelet Count 104 K/mcL (140-400); Red Blood Count 3.59 M/mcL (4.19-5.50); Segmented Neutrophils % 69.5 %; White Blood Count 6.9 K/mcL (4.3-11.1)
[2021-07-05 02:13] LABS: Calcium 8.7 mg/dL (8.6-10.3); Magnesium 1.5 mg/dL (1.6-2.6); Phosphorous 4.1 mg/dL (2.7-4.5)
[2021-07-05 02:32] LABS: Folate 20.6 ng/mL (3.0-16.0)
[2021-07-05] MEDS: *HR* OxyCODONE Immed Rel 5 MG TABLET PO PRN (06:47)
[2021-07-05 10:56] VITALS: PULSE 85; TEMP 98.6; O2SAT 93
[2021-07-05] MEDS ORDERED: ceFAZolin 1,000 MG in Water for inj. (sterile) 10 ML IVP SCH (10:59)
[2021-07-05] MEDS ORDERED: cloNIDine HCL 0.1 MG TABLET PO SCH (11:00)
[2021-07-05] MEDS ORDERED: Furosemide 40 MG TABLET PO SCH (11:00)
[2021-07-05] MEDS ORDERED: *HR* HYDROcodone/Acet 5/325 mg TABLET PO PRN (11:00)
[2021-07-05] MEDS ORDERED: Aspirin 81 MG TAB.CHEW PO SCH (11:00)
[2021-07-05] MEDS ORDERED: Insulin DETEMIR 100 UNIT/ML X5UNITS SUBQ SCH (11:00)
[2021-07-05] MEDS ORDERED: Insulin LISPRO 300 UNITS/3 ML VIAL SUBQ SCH (12:00)
[2021-07-05 14:13] VITALS: BP 152/70
[2021-07-05] MEDS ORDERED: Baclofen 10 MG TABLET PO SCH (15:00)
[2021-07-05] MEDS ORDERED: Piperacillin/Tazobactam 3.375 GM in 0.9 % Sodium Chloride Mini Bag 100 ML IVPB SCH (16:00)
== END 2021-07-05 16:01 | disposition home health service (06) | DRG 581 ==
LOC: EMEROOARM 19:48 → 3BNU 19:48 → SUATTDRO 07-02 11:09
PROVIDERS: ADMIT Internal Medicine; ATTEND Internal Medicine

== ENCOUNTER 2021-08-01 16:09 | Observation (INO) ==
[2021-08-01] MEDS ORDERED: 0.9 % Sodium Chloride 1,000 ML IVC ONE (16:12)
[2021-08-01 17:10] LABS: Basophils # 0.1 K/mcL (0.0-0.2); Basophils % 0.6 %; Eosinophils # 0.3 K/mcL (0.0-0.6); Eosinophils % 3.6 %; Hemoglobin 9.2 g/dL (12.9-16.9); Immature Granulocytes % 0.7 % (0-4); Immature Platelets 8.6 % (1.1-6.1); Lymphocytes # 1.1 K/mcL (0.6-4.6); Lymphocytes % 12.3 %; Mean Corpuscular HGB Conc 29.7 g/dL (31.6-35.5); Mean Corpuscular Hemoglobin 23.6 pg (28.0-33.3); Mean Corpuscular Volume 79.5 fL (83.0-100.0); Mean Platelet Volume 12.2 fL (9.4-12.4); Monocytes # 0.6 K/mcL (0.0-1.3); Monocytes % 7.4 %; Red Cell Distribution Width 15.5 % (11.5-14.5); Segmented Neutrophils % 75.4 %; White Blood Count 8.7 K/mcL (4.3-11.1)
[2021-08-01 17:11] LABS: Neutrophils # 6.6 K/mcL (1.6-8.9); Platelet Count 84 K/mcL (140-400)
[2021-08-01 17:20] LABS: INR 1.2; Prothrombin Time 12.9 Seconds (9.4-12.1)
[2021-08-01 17:22] LABS: Activated Partial Thrombo Time 35.1 Seconds (26.0-36.0)
[2021-08-01 17:24] LABS: BUN/Creatinine Ratio 15 (6-26); Blood Urea Nitrogen 26 mg/dL (8-23); Calcium 9.5 mg/dL (8.6-10.3); Carbon Dioxide 30 mEq/L (23-29); Chloride 102 mEq/L (98-107); Glucose 196 mg/dL (70-105); Osmolality,Calculated 298 (280-300); Potassium 4.7 mEq/L (3.5-5.1); Sodium 139 mEq/L (136-145); eGFR For African Americans 48 (> 60); eGFR For Non-African Americans 40 (> 60)
[2021-08-01 17:26] LABS: Troponin I < 0.03 ng/mL (< 0.04)
[2021-08-01 18:48] LABS: Creatine Kinase 110 Units/L (30-223)
[2021-08-01] MEDS ORDERED: Naloxone 0.4 MG/ML INJ IVP PRN (20:21)
[2021-08-01] MEDS ORDERED: *HR* Dextrose 50 % in Water (Syg) 50 ML SYRINGE IVP PRN (20:40)
[2021-08-01] MEDS ORDERED: D5% in Water 1,000 ML IVC PRN (20:40)
[2021-08-01] MEDS ORDERED: Dextrose Gel 15 GM/37.5 ML TUBE PO PRN ×2 (20:40)
[2021-08-01 23:17] LABS: Albumin 3.7 g/dL (3.5-5.7); Albumin/Globulin Ratio 1.2 (1.1-2.2); Bilirubin,Direct 0.1 mg/dL (0.0-0.2); Bilirubin,Indirect 0.3 mg/dL (0.0-1.0); Bilirubin,Total 0.4 mg/dL (0.3-1.0); Total Protein 6.7 g/dL (6.4-8.9)
[2021-08-01 23:29] LABS: Thyroid Stimulating Hormone 2.526 mcIU/mL (0.340-5.600)
[2021-08-02] MEDS: Insulin LISPRO 300 UNITS/3 ML VIAL SUBQ SCH ×4 (00:47→17:36)
[2021-08-02] MEDS ORDERED: Ondansetron 4 MG/2 ML VIAL IVP PRN (01:39)
[2021-08-02 03:27] LABS: Adenovirus Not Detected (Not Detect); Bordetella Pertussis Not Detected (Not Detect); Chlamydophila pneumoniae Not Detected (Not Detect); Coronavirus 229E Not Detected (Not Detect); Coronavirus HKU1 Not Detected (Not Detect); Coronavirus NL63 Not Detected (Not Detect); Coronavirus OC43 Not Detected (Not Detect); Human Metapneumovirus Not Detected (Not Detect); Human Rhinovirus/Enterovirus Not Detected (Not Detect); Influenza A Subtype 2009 H1 Not Detected (Not Detect); Influenza B Not Detected (Not Detect); Mycoplasma pneumoniae Not Detected (Not Detect); Parainfluenza Virus 1 Not Detected (Not Detect); Parainfluenza Virus 2 Not Detected (Not Detect); Parainfluenza Virus 3 Not Detected (Not Detect); Parainfluenza Virus 4 Not Detected (Not Detect); Respiratory Syncytial Virus Not Detected (Not Detect); SARS-CoV-2 Not Detected (Not Detect)
[2021-08-02] MEDS: *HR* Heparin 5,000 UNIT/ML VIAL SQ SCH ×2 (05:06→13:50)
[2021-08-02 07:41] LABS: Hemoglobin 8.6 g/dL (12.9-16.9); Immature Granulocytes % 0.5 % (0-4); Lymphocytes % 11.9 %; Red Cell Distribution Width 15.3 % (11.5-14.5)
[2021-08-02 07:44] LABS: Basophils % 0.4 %; Eosinophils # 0.3 K/mcL (0.0-0.6); Eosinophils % 3.2 %; Hematocrit 29.3 % (37.5-50.1); Immature Platelets 8.5 % (1.1-6.1); Mean Corpuscular HGB Conc 29.4 g/dL (31.6-35.5); Mean Corpuscular Hemoglobin 23.8 pg (28.0-33.3); Mean Corpuscular Volume 80.9 fL (83.0-100.0); Mean Platelet Volume 11.4 fL (9.4-12.4); Monocytes # 0.5 K/mcL (0.0-1.3); Monocytes % 6.5 %; Neutrophils # 6.2 K/mcL (1.6-8.9); Red Blood Count 3.62 M/mcL (4.19-5.50); Segmented Neutrophils % 77.5 %
[2021-08-02 07:46] LABS: BUN/Creatinine Ratio 18 (6-26); Blood Urea Nitrogen 23 mg/dL (8-23); Calcium 8.7 mg/dL (8.6-10.3); Carbon Dioxide 27 mEq/L (23-29); Chloride 104 mEq/L (98-107); Glucose 193 mg/dL (70-105); Magnesium 1.6 mg/dL (1.6-2.6); Osmolality,Calculated 297 (280-300); Potassium 4.4 mEq/L (3.5-5.1); Sodium 139 mEq/L (136-145); eGFR For African Americans > 60 (> 60); eGFR For Non-African Americans 53 (> 60)
[2021-08-02 07:47] LABS: Platelet Count 78 K/mcL (140-400)
[2021-08-02 10:56] LABS: Amphetamine Screen,Urine Negative ng/mL (Cutoff=1000); Barbiturate Screen,Urine Negative ng/mL (Cutoff=200); Benzodiazepines Screen,Urine Negative ng/mL (Cutoff=200); Cannabinoid Screen,Urine Negative ng/mL (Cutoff = 50); Cocaine Screen,Urine Negative ng/mL (Cutoff= 300); Opiate Screen,Urine Negative ng/mL (Cutoff=300); Phencyclidine Screen,Urine Negative ng/mL (Cutoff=25)
[2021-08-02 16:15] VITALS: BP 148/69; PULSE 84; TEMP 98.5; O2SAT 91
== END 2021-08-02 20:30 | disposition home or self-care (01) ==
LOC: 3BNU 16:09 → EMEROOARM 16:09 → SUATTDRO 18:49 → 3BNU 21:05
PROVIDERS: ADMIT Internal Medicine; ATTEND Registered Nurse

== ENCOUNTER 2021-08-13 01:54 | Inpatient (IN) ==
[2021-08-13 03:21] LABS: Basophils # 0.1 K/mcL (0.0-0.2); Basophils % 0.6 %; Eosinophils # 0.4 K/mcL (0.0-0.6); Eosinophils % 4.9 %; Hematocrit 29.2 % (37.5-50.1); Hemoglobin 8.5 g/dL (12.9-16.9); Immature Granulocytes % 0.4 % (0-4); Lymphocytes # 1.3 K/mcL (0.6-4.6); Lymphocytes % 14.7 %; Mean Corpuscular HGB Conc 29.1 g/dL (31.6-35.5); Mean Corpuscular Hemoglobin 23.7 pg (28.0-33.3); Mean Corpuscular Volume 81.3 fL (83.0-100.0); Mean Platelet Volume 12.1 fL (9.4-12.4); Monocytes # 0.8 K/mcL (0.0-1.3); Monocytes % 8.9 %; Neutrophils # 6.4 K/mcL (1.6-8.9); Platelet Count 114 K/mcL (140-400); Red Blood Count 3.59 M/mcL (4.19-5.50); Red Cell Distribution Width 15.9 % (11.5-14.5); Segmented Neutrophils % 70.5 %; White Blood Count 9.1 K/mcL (4.3-11.1)
[2021-08-13 03:44] LABS: Calcium 9.5 mg/dL (8.6-10.3); Potassium 4.5 mEq/L (3.5-5.1)
[2021-08-13] MEDS ORDERED: 0.9 % Sodium Chloride 1,000 ML IVC ONE (03:51)
[2021-08-13 05:02] LABS: Bacteria,Urine Few per hpf (None-Few); Bilirubin,Urine Negative (Negative); Blood,Urine Negative (Negative); Clarity,Urine Turbid (Clear); Color,Urine Yellow (Yellow); Glucose,Urine (UA) Normal (Normal); Hyaline Casts,Urine Few per lpf (None Seen); Ketones,Urine Negative (Negative); Leukocyte Esterase,Urine Negative (Negative); Mucus,Urine Few per lpf (None-Few); Nitrite,Urine Negative (Negative); PH,Urine 5.5 pH Units (5.0-8.0); Protein,Urine Negative (Neg-Trace); RBC,Urine 0-3 per hpf (0-3); Specific Gravity,Urine 1.016 (1.010-1.025); Squamous Epithelial Cell,Urine Few per hpf (None-Few); Urobilinogen,Urine Normal (Normal); WBC,Urine 0-3 per hpf (0-3)
[2021-08-13 05:04] LABS: Albumin 4.1 g/dL (3.5-5.7); Albumin/Globulin Ratio 1.2 (1.1-2.2); Bilirubin,Indirect 0.4 mg/dL (0.0-1.0); Bilirubin,Total 0.4 mg/dL (0.3-1.0); Globulin 3.4 g/dL (2.4-3.5); Total Protein 7.5 g/dL (6.4-8.9)
[2021-08-13] MEDS ORDERED: Naloxone 0.4 MG/ML INJ IVP PRN (05:58)
[2021-08-13] MEDS ORDERED: Acetaminophen 325 MG TABLET PO PRN (05:58)
[2021-08-13] MEDS ORDERED: Ondansetron 4 MG/2 ML VIAL IVP PRN (05:58)
[2021-08-13] MEDS ORDERED: Melatonin 3 MG TABLET PO PRN (05:58)
[2021-08-13] MEDS ORDERED: *HR* Dextrose 50 % in Water (Syg) 50 ML SYRINGE IVP PRN (06:23)
[2021-08-13] MEDS ORDERED: Dextrose Gel 15 GM/37.5 ML TUBE PO PRN ×2 (06:23)
[2021-08-13] MEDS ORDERED: D5% in Water 1,000 ML IVC PRN (06:23)
[2021-08-13] MEDS: Insulin LISPRO 300 UNITS/3 ML VIAL SUBQ SCH ×3 (09:28→18:09)
[2021-08-13] MEDS: 0.9 % Sodium Chloride 1,000 ML IVC SCH ×2 (09:31→18:08)
[2021-08-13] MEDS: HYDROMORPHONE IT SCH (16:42)
[2021-08-13] MEDS ORDERED: *HR* Heparin 5,000 UNIT/ML VIAL SQ SCH (18:00)
[2021-08-13] MEDS: cloNIDine HCL 0.1 MG TABLET PO SCH (20:34)
[2021-08-13] MEDS ORDERED: Insulin LISPRO 300 UNITS/3 ML VIAL SUBQ SCH (21:00)
[2021-08-14 03:13] LABS: Basophils # 0.1 K/mcL (0.0-0.2); Basophils % 0.9 %; Eosinophils # 0.4 K/mcL (0.0-0.6); Hematocrit 28.9 % (37.5-50.1); Hemoglobin 8.3 g/dL (12.9-16.9); Immature Granulocytes % 0.6 % (0-4); Immature Platelets 6.7 % (1.1-6.1); Lymphocytes % 14.6 %; Mean Corpuscular HGB Conc 28.7 g/dL (31.6-35.5); Mean Corpuscular Hemoglobin 23.2 pg (28.0-33.3); Mean Platelet Volume 12.9 fL (9.4-12.4); Monocytes # 0.6 K/mcL (0.0-1.3); Monocytes % 9.1 %; Neutrophils # 4.7 K/mcL (1.6-8.9); Red Blood Count 3.57 M/mcL (4.19-5.50); Red Cell Distribution Width 15.6 % (11.5-14.5); Segmented Neutrophils % 68.8 %; White Blood Count 6.8 K/mcL (4.3-11.1)
[2021-08-14 03:15] LABS: Platelet Count 93 K/mcL (140-400)
[2021-08-14 03:55] LABS: BUN/Creatinine Ratio 26 (6-26); Blood Urea Nitrogen 34 mg/dL (8-23); Calcium 8.9 mg/dL (8.6-10.3); Carbon Dioxide 25 mEq/L (23-29); Chloride 104 mEq/L (98-107); Glucose 219 mg/dL (70-105); Magnesium 1.8 mg/dL (1.6-2.6); Osmolality,Calculated 300 (280-300); Phosphorous 2.8 mg/dL (2.7-4.5); Potassium 4.7 mEq/L (3.5-5.1); Sodium 138 mEq/L (136-145); eGFR For African Americans > 60 (> 60); eGFR For Non-African Americans 53 (> 60)
[2021-08-14] MEDS: cloNIDine HCL 0.1 MG TABLET PO SCH (08:01)
[2021-08-14] MEDS: Aspirin 81 MG TAB.CHEW PO SCH (08:01)
[2021-08-14] MEDS: Insulin LISPRO 300 UNITS/3 ML VIAL SUBQ SCH ×4 (08:02→16:39)
[2021-08-14] MEDS: Furosemide 20 MG TABLET PO SCH (12:56)
[2021-08-14] MEDS: HYDROMORPHONE IT SCH (14:21)
[2021-08-14] MEDS ORDERED: Insulin LISPRO 300 UNITS/3 ML VIAL SUBQ SCH (21:00)
[2021-08-15 05:50] LABS: Hemoglobin 9.3 g/dL (12.9-16.9); Immature Granulocytes % 0.7 % (0-4)
[2021-08-15 05:53] LABS: Basophils # 0.1 K/mcL (0.0-0.2); Eosinophils # 0.4 K/mcL (0.0-0.6); Eosinophils % 6.4 %; Hematocrit 31.9 % (37.5-50.1); Immature Platelets 6.3 % (1.1-6.1); Lymphocytes # 1.2 K/mcL (0.6-4.6); Lymphocytes % 17.8 %; Mean Corpuscular HGB Conc 29.2 g/dL (31.6-35.5); Mean Corpuscular Hemoglobin 23.6 pg (28.0-33.3); Mean Platelet Volume 11.8 fL (9.4-12.4); Monocytes # 0.6 K/mcL (0.0-1.3); Monocytes % 8.9 %; Red Blood Count 3.94 M/mcL (4.19-5.50); Red Cell Distribution Width 15.6 % (11.5-14.5); Segmented Neutrophils % 65.2 %; White Blood Count 6.8 K/mcL (4.3-11.1)
[2021-08-15 06:02] LABS: Neutrophils # 4.4 K/mcL (1.6-8.9); Platelet Count 93 K/mcL (140-400)
[2021-08-15 06:15] LABS: BUN/Creatinine Ratio 21 (6-26); Blood Urea Nitrogen 26 mg/dL (8-23); Calcium 9.5 mg/dL (8.6-10.3); Carbon Dioxide 25 mEq/L (23-29); Chloride 101 mEq/L (98-107); Glucose 228 mg/dL (70-105); Magnesium 1.6 mg/dL (1.6-2.6); Osmolality,Calculated 292 (280-300); Phosphorous 2.8 mg/dL (2.7-4.5); Potassium 4.3 mEq/L (3.5-5.1); Sodium 135 mEq/L (136-145); eGFR For African Americans > 60 (> 60); eGFR For Non-African Americans 59 (> 60)
[2021-08-15 07:37] VITALS: PULSE 65; TEMP 97.6; O2SAT 95
[2021-08-15] MEDS: Furosemide 20 MG TABLET PO SCH (07:59)
[2021-08-15] MEDS: Aspirin 81 MG TAB.CHEW PO SCH (08:00)
[2021-08-15] MEDS: Insulin LISPRO 300 UNITS/3 ML VIAL SUBQ SCH (08:00)
[2021-08-15 09:59] VITALS: BP 164/71
== END 2021-08-15 11:41 | disposition home health service (06) | DRG 683 ==
LOC: 3BNU 01:54 → EMEROOARM 01:54 → SUATTDRO 05:05 → 3BNU 05:35
PROVIDERS: ADMIT Family Medicine; ATTEND Registered Nurse

== ENCOUNTER 2021-08-20 17:15 | Inpatient (IN) ==
[2021-08-20] MEDS ORDERED: *HR* HYDROmorphone (PF) 1 MG/ML SYRINGE IVP ONE (18:48)
[2021-08-20 19:23] LABS: Basophils # 0.1 K/mcL (0.0-0.2); Basophils % 0.6 %; Eosinophils # 0.1 K/mcL (0.0-0.6); Eosinophils % 1.1 %; Hematocrit 26.3 % (37.5-50.1); Hemoglobin 7.8 g/dL (12.9-16.9); Immature Granulocytes % 0.7 % (0-4); Lymphocytes # 1.2 K/mcL (0.6-4.6); Lymphocytes % 11.5 %; Mean Corpuscular HGB Conc 29.7 g/dL (31.6-35.5); Mean Corpuscular Hemoglobin 23.6 pg (28.0-33.3); Mean Corpuscular Volume 79.7 fL (83.0-100.0); Monocytes # 1.1 K/mcL (0.0-1.3); Monocytes % 10.6 %; Platelet Count 106 K/mcL (140-400); Red Cell Distribution Width 16.6 % (11.5-14.5); Segmented Neutrophils % 75.5 %
[2021-08-20 19:29] LABS: White Blood Count 10.6 K/mcL (4.3-11.1)
[2021-08-20 19:31] LABS: INR 1.2; Prothrombin Time 13.7 Seconds (9.4-12.1)
[2021-08-20 19:33] LABS: Activated Partial Thrombo Time 34.2 Seconds (26.0-36.0)
[2021-08-20 19:42] LABS: Albumin 3.9 g/dL (3.5-5.7); Albumin/Globulin Ratio 1.2 (1.1-2.2); Bilirubin,Total 0.7 mg/dL (0.3-1.0); Calcium 8.7 mg/dL (8.6-10.3); Globulin 3.3 g/dL (2.4-3.5); Potassium 5.1 mEq/L (3.5-5.1); Total Protein 7.2 g/dL (6.4-8.9)
[2021-08-20] MEDS ORDERED: Pantoprazole 40 MG VIAL IVP ONE (23:21)
[2021-08-20] MEDS ORDERED: Water for inj. (sterile) 20 ML ONE (23:54)
[2021-08-21] MEDS ORDERED: Melatonin 3 MG TABLET PO PRN (00:07)
[2021-08-21] MEDS ORDERED: Naloxone 0.4 MG/ML INJ IVP PRN (00:07)
[2021-08-21] MEDS ORDERED: *HR* Dextrose 50 % in Water (Syg) 50 ML SYRINGE IVP PRN (00:18)
[2021-08-21] MEDS ORDERED: Dextrose Gel 15 GM/37.5 ML TUBE PO PRN ×2 (00:18)
[2021-08-21] MEDS ORDERED: D5% in Water 1,000 ML IVC PRN (00:18)
[2021-08-21] MEDS ORDERED: 0.9 % Sodium Chloride 250 ML ONE (00:34)
[2021-08-21] MEDS: Insulin DETEMIR 100 UNIT/ML X5UNITS SUBQ SCH ×3 (02:21→20:52)
[2021-08-21] MEDS: cloNIDine HCL 0.1 MG TABLET PO SCH ×3 (02:21→20:51)
[2021-08-21 04:09] LABS: Hemoglobin 7.9 g/dL (12.9-16.9); Mean Platelet Volume 12.2 fL (9.4-12.4)
[2021-08-21 04:11] LABS: Hematocrit 25.9 % (37.5-50.1); Immature Platelets 7.8 % (1.1-6.1); Mean Corpuscular HGB Conc 30.5 g/dL (31.6-35.5); Mean Corpuscular Hemoglobin 24.6 pg (28.0-33.3); Mean Corpuscular Volume 80.7 fL (83.0-100.0); Red Blood Count 3.21 M/mcL (4.19-5.50); White Blood Count 9.4 K/mcL (4.3-11.1)
[2021-08-21 04:25] LABS: Calcium 8.7 mg/dL (8.6-10.3); Magnesium 2.4 mg/dL (1.6-2.6); Potassium 4.7 mEq/L (3.5-5.1)
[2021-08-21] MEDS: Pantoprazole 40 MG VIAL IVP SCH ×2 (07:46→17:17)
[2021-08-21] MEDS: Insulin LISPRO 300 UNITS/3 ML VIAL SUBQ SCH ×3 (07:47→17:24)
[2021-08-21] MEDS ORDERED: Iron Sucrose Complex 200 MG in 0.9 % Sodium Chloride 100 ML IVPB ONE (09:00)
[2021-08-21] MEDS ORDERED: cloNIDine HCL 0.1 MG TABLET PO SCH (09:00)
[2021-08-21] MEDS ORDERED: Lidocaine -MPF 2% 5 ML VIAL ONE (12:54)
[2021-08-21] MEDS ORDERED: EPHEDrine 50 MG/ML VIAL ONE (13:13)
[2021-08-21] MEDS ORDERED: *HR* Propofol 200 MG/20 ML VIAL IVP ONE (13:20)
[2021-08-21] MEDS ORDERED: 0.9 % Sodium Chloride 500 ML IVC ONE (16:55)
[2021-08-21] MEDS ORDERED: Insulin LISPRO 300 UNITS/3 ML VIAL SUBQ SCH (21:00)
[2021-08-22] MEDS: Pantoprazole 40 MG VIAL IVP SCH ×2 (05:24→17:45)
[2021-08-22 07:56] LABS: Hemoglobin 8.4 g/dL (12.9-16.9); Mean Corpuscular Hemoglobin 24.6 pg (28.0-33.3); Nucleated Red Blood Cells 0.4 /100 WBC (0); Red Blood Count 3.41 M/mcL (4.19-5.50); Red Cell Distribution Width 17.5 % (11.5-14.5)
[2021-08-22 07:58] LABS: Basophils # 0.1 K/mcL (0.0-0.2); Basophils % 0.7 %; Eosinophils # 0.4 K/mcL (0.0-0.6); Eosinophils % 4.1 %; Immature Granulocytes % 2.1 % (0-4); Lymphocytes # 1.4 K/mcL (0.6-4.6); Lymphocytes % 15.6 %; Mean Corpuscular Volume 82.1 fL (83.0-100.0); Mean Platelet Volume 12.1 fL (9.4-12.4); Monocytes # 0.9 K/mcL (0.0-1.3); Monocytes % 9.5 %; Neutrophils # 6.3 K/mcL (1.6-8.9); White Blood Count 9.2 K/mcL (4.3-11.1)
[2021-08-22 07:59] LABS: Platelet Count 92 K/mcL (140-400)
[2021-08-22 08:46] LABS: Albumin 3.6 g/dL (3.5-5.7); Albumin/Globulin Ratio 1.1 (1.1-2.2); Bilirubin,Total 0.9 mg/dL (0.3-1.0); Calcium 8.6 mg/dL (8.6-10.3); Globulin 3.4 g/dL (2.4-3.5); Potassium 4.8 mEq/L (3.5-5.1)
[2021-08-22] MEDS ORDERED: Morphine Sulfate 2 MG/ML SYRINGE IVP ONE ×2 (09:57)
[2021-08-22] MEDS: Insulin LISPRO 300 UNITS/3 ML VIAL SUBQ SCH ×4 (10:17→21:01)
[2021-08-22] MEDS: Insulin DETEMIR 100 UNIT/ML X5UNITS SUBQ SCH ×2 (10:36→21:01)
[2021-08-22] MEDS: cloNIDine HCL 0.1 MG TABLET PO SCH ×2 (12:45→21:00)
[2021-08-23] MEDS: Pantoprazole 40 MG VIAL IVP SCH ×2 (06:28→17:03)
[2021-08-23 07:53] LABS: Basophils # 0.1 K/mcL (0.0-0.2); Basophils % 0.7 %; Eosinophils # 0.6 K/mcL (0.0-0.6); Eosinophils % 5.9 %; Hematocrit 30.5 % (37.5-50.1); Hemoglobin 9.1 g/dL (12.9-16.9); Immature Granulocytes % 1.3 % (0-4); Lymphocytes # 1.4 K/mcL (0.6-4.6); Lymphocytes % 14.3 %; Mean Corpuscular HGB Conc 29.8 g/dL (31.6-35.5); Mean Corpuscular Hemoglobin 25.3 pg (28.0-33.3); Mean Platelet Volume 11.7 fL (9.4-12.4); Monocytes # 0.9 K/mcL (0.0-1.3); Monocytes % 9.1 %; Neutrophils # 6.7 K/mcL (1.6-8.9); Nucleated Red Blood Cells 0.2 /100 WBC (0); Platelet Count 116 K/mcL (140-400); Red Blood Count 3.59 M/mcL (4.19-5.50); Red Cell Distribution Width 17.8 % (11.5-14.5); Segmented Neutrophils % 68.7 %; White Blood Count 9.7 K/mcL (4.3-11.1)
[2021-08-23 08:21] LABS: Potassium 4.2 mEq/L (3.5-5.1)
[2021-08-23] MEDS: Insulin DETEMIR 100 UNIT/ML X5UNITS SUBQ SCH ×2 (09:34→21:24)
[2021-08-23] MEDS: cloNIDine HCL 0.1 MG TABLET PO SCH ×2 (09:34→21:23)
[2021-08-23] MEDS: Insulin LISPRO 300 UNITS/3 ML VIAL SUBQ SCH ×4 (09:34→21:03)
[2021-08-23] MEDS ORDERED: *HR* HYDROmorphone (PF) 1 MG/ML SYRINGE IVP PRN (11:07)
[2021-08-23] MEDS: HYDROMORPHONE IT SCH (14:05)
[2021-08-23] MEDS: Aspirin 81 MG TAB.CHEW PO SCH (14:23)
[2021-08-24 00:59] LABS: Basophils # 0.1 K/mcL (0.0-0.2); Basophils % 0.5 %; Eosinophils # 0.5 K/mcL (0.0-0.6); Eosinophils % 5.2 %; Hematocrit 26.8 % (37.5-50.1); Hemoglobin 8.1 g/dL (12.9-16.9); Immature Granulocytes % 1.2 % (0-4); Lymphocytes # 1.5 K/mcL (0.6-4.6); Lymphocytes % 16.3 %; Mean Corpuscular HGB Conc 30.2 g/dL (31.6-35.5); Mean Corpuscular Hemoglobin 25.2 pg (28.0-33.3); Mean Corpuscular Volume 83.5 fL (83.0-100.0); Mean Platelet Volume 11.6 fL (9.4-12.4); Monocytes # 0.9 K/mcL (0.0-1.3); Monocytes % 9.6 %; Neutrophils # 6.3 K/mcL (1.6-8.9); Platelet Count 102 K/mcL (140-400); Red Blood Count 3.21 M/mcL (4.19-5.50); Red Cell Distribution Width 18.2 % (11.5-14.5); Segmented Neutrophils % 67.2 %; White Blood Count 9.4 K/mcL (4.3-11.1)
[2021-08-24 01:13] LABS: Calcium 8.7 mg/dL (8.6-10.3); Potassium 4.2 mEq/L (3.5-5.1)
[2021-08-24] MEDS: Pantoprazole 40 MG VIAL IVP SCH ×2 (05:57→17:45)
[2021-08-24] MEDS: Insulin LISPRO 300 UNITS/3 ML VIAL SUBQ SCH ×4 (08:45→21:06)
[2021-08-24] MEDS: Aspirin 81 MG TAB.CHEW PO SCH (08:45)
[2021-08-24] MEDS: cloNIDine HCL 0.1 MG TABLET PO SCH ×2 (08:45→21:07)
[2021-08-24] MEDS: Insulin DETEMIR 100 UNIT/ML X5UNITS SUBQ SCH ×2 (10:07→21:07)
[2021-08-24] MEDS: HYDROMORPHONE IT SCH (12:28)
[2021-08-25 05:50] LABS: Basophils # 0.1 K/mcL (0.0-0.2); Basophils % 0.6 %; Eosinophils # 0.6 K/mcL (0.0-0.6); Eosinophils % 5.4 %; Hematocrit 27.4 % (37.5-50.1); Hemoglobin 8.1 g/dL (12.9-16.9); Immature Granulocytes % 1.5 % (0-4); Lymphocytes # 1.7 K/mcL (0.6-4.6); Lymphocytes % 16.8 %; Mean Corpuscular HGB Conc 29.6 g/dL (31.6-35.5); Mean Corpuscular Hemoglobin 24.5 pg (28.0-33.3); Mean Platelet Volume 12.1 fL (9.4-12.4); Monocytes # 0.8 K/mcL (0.0-1.3); Platelet Count 104 K/mcL (140-400); Red Cell Distribution Width 18.8 % (11.5-14.5); Segmented Neutrophils % 67.7 %; White Blood Count 10.4 K/mcL (4.3-11.1)
[2021-08-25] MEDS: Pantoprazole 40 MG VIAL IVP SCH ×2 (05:55→18:13)
[2021-08-25 06:11] LABS: Calcium 8.4 mg/dL (8.6-10.3); Potassium 4.1 mEq/L (3.5-5.1)
[2021-08-25] MEDS: Aspirin 81 MG TAB.CHEW PO SCH (08:51)
[2021-08-25] MEDS: Insulin LISPRO 300 UNITS/3 ML VIAL SUBQ SCH ×4 (08:56→20:59)
[2021-08-25] MEDS: cloNIDine HCL 0.1 MG TABLET PO SCH ×2 (08:57→20:59)
[2021-08-25] MEDS: Insulin DETEMIR 100 UNIT/ML X5UNITS SUBQ SCH ×2 (09:01→20:59)
[2021-08-25] MEDS ORDERED: *HR* Propofol 200 MG/20 ML VIAL IVP ONE (12:50)
[2021-08-25] MEDS: HYDROMORPHONE IT SCH (12:53)
[2021-08-25] MEDS ORDERED: Lidocaine -MPF 2% 5 ML VIAL ONE (13:45)
[2021-08-26] MEDS: Pantoprazole 40 MG VIAL IVP SCH (05:07)
[2021-08-26 06:56] LABS: Calcium 8.6 mg/dL (8.6-10.3); Potassium 4.3 mEq/L (3.5-5.1)
[2021-08-26 07:17] VITALS: BP 137/71; PULSE 64; TEMP 98.3; O2SAT 93
[2021-08-26 07:53] LABS: Adenovirus Not Detected (Not Detect); Coronavirus 229E Not Detected (Not Detect); Coronavirus HKU1 Not Detected (Not Detect); Coronavirus NL63 Not Detected (Not Detect); Coronavirus OC43 Not Detected (Not Detect); SARS-CoV-2 Not Detected (Not Detect)
[2021-08-26 07:54] LABS: Bordetella Pertussis Not Detected (Not Detect); Chlamydophila pneumoniae Not Detected (Not Detect); Human Metapneumovirus Not Detected (Not Detect); Human Rhinovirus/Enterovirus Not Detected (Not Detect); Influenza A Subtype 2009 H1 Not Detected (Not Detect); Influenza B Not Detected (Not Detect); Mycoplasma pneumoniae Not Detected (Not Detect); Parainfluenza Virus 1 Not Detected (Not Detect); Parainfluenza Virus 2 Not Detected (Not Detect); Parainfluenza Virus 3 Not Detected (Not Detect); Parainfluenza Virus 4 Not Detected (Not Detect); Respiratory Syncytial Virus Not Detected (Not Detect)
[2021-08-26] MEDS: Insulin DETEMIR 100 UNIT/ML X5UNITS SUBQ SCH (08:27)
[2021-08-26] MEDS: Insulin LISPRO 300 UNITS/3 ML VIAL SUBQ SCH (08:27)
[2021-08-26] MEDS: Aspirin 81 MG TAB.CHEW PO SCH (08:28)
[2021-08-26] MEDS: cloNIDine HCL 0.1 MG TABLET PO SCH (08:28)
== END 2021-08-26 11:10 | DRG 533 ==
LOC: EMEROOARM 17:15 → 3ANU 17:15
PROVIDERS: ADMIT Internal Medicine; ATTEND Internal Medicine
PROC: ENDOEBX (2021-08-25 13:15)

== ENCOUNTER 2021-10-29 17:09 | Observation (INO) ==
[2021-10-29] MEDS ORDERED: Ondansetron 4 MG/2 ML VIAL IVP ONE (18:05)
[2021-10-29 18:38] LABS: Basophils # 0.1 K/mcL (0.0-0.2); Basophils % 0.7 %; Eosinophils # 0.2 K/mcL (0.0-0.6); Eosinophils % 2.1 %; Hematocrit 32.9 % (37.5-50.1); Hemoglobin 9.6 g/dL (12.9-16.9); Immature Granulocytes % 0.7 % (0-4); Lymphocytes # 2.1 K/mcL (0.6-4.6); Lymphocytes % 18.7 %; Mean Corpuscular HGB Conc 29.2 g/dL (31.6-35.5); Mean Corpuscular Hemoglobin 23.8 pg (28.0-33.3); Mean Corpuscular Volume 81.4 fL (83.0-100.0); Mean Platelet Volume 12.3 fL (9.4-12.4); Monocytes # 0.8 K/mcL (0.0-1.3); Monocytes % 6.7 %; Platelet Count 129 K/mcL (140-400); Red Blood Count 4.04 M/mcL (4.19-5.50); Red Cell Distribution Width 15.9 % (11.5-14.5); Segmented Neutrophils % 71.1 %; White Blood Count 11.3 K/mcL (4.3-11.1)
[2021-10-29 18:45] LABS: VBG HCO3 29 mEq/L (21-27); VBG PCO2 42 mmHg (41-51); VBG PH 7.46 pH Units (7.32-7.42); VBG PO2 126 mmHg (25-50)
[2021-10-29 18:50] LABS: Albumin 3.8 g/dL (3.5-5.7); Albumin/Globulin Ratio 1.1 (1.1-2.2); Bilirubin,Total 0.5 mg/dL (0.3-1.0); Calcium 9.3 mg/dL (8.6-10.3); Globulin 3.6 g/dL (2.4-3.5); Magnesium 1.9 mg/dL (1.6-2.6); Potassium 4.2 mEq/L (3.5-5.1); Total Protein 7.4 g/dL (6.4-8.9)
[2021-10-29] MEDS ORDERED: Naloxone 0.4 MG/ML INJ IVP ONE (19:07)
[2021-10-29 19:37] LABS: Influenza A PCR Negative (Negative); Influenza B PCR Negative (Negative); Resp. Syncytial Virus PCR Negative (Negative)
[2021-10-29 19:40] LABS: SARS-CoV-2 by PCR (In House) Negative (Negative)
[2021-10-29 20:52] LABS: Bacteria,Urine Few per hpf (None-Few); Bilirubin,Urine Negative (Negative); Blood,Urine Negative (Negative); Clarity,Urine Clear (Clear); Color,Urine Yellow (Yellow); Glucose,Urine (UA) 150 mg/dL (Normal); Hyaline Casts,Urine Many per lpf (None Seen); Ketones,Urine Negative (Negative); Leukocyte Esterase,Urine Negative (Negative); Mucus,Urine Few per lpf (None-Few); Nitrite,Urine Negative (Negative); PH,Urine 5.5 pH Units (5.0-8.0); Protein,Urine Negative (Neg-Trace); RBC,Urine 0-3 per hpf (0-3); Specific Gravity,Urine 1.017 (1.010-1.025); Squamous Epithelial Cell,Urine Few per hpf (None-Few); Urobilinogen,Urine Normal (Normal); WBC,Urine 0-3 per hpf (0-3)
[2021-10-29 23:27] LABS: Thyroid Stimulating Hormone 51.163 mcIU/mL (0.340-5.600)
[2021-10-30] MEDS ORDERED: Levothyroxine Sodium 200 MCG VIAL IVP ONE (00:59)
[2021-10-30] MEDS ORDERED: Hydrocortisone Sodium Succ 100 MG/2 ML VIAL IVP ONE (01:00)
[2021-10-30 01:30] LABS: Triiodothyronine (T3) Free 1.55 pg/mL (2.50-3.90)
[2021-10-30] MEDS ORDERED: Naloxone 0.4 MG/ML INJ IVP PRN (05:09)
[2021-10-30] MEDS ORDERED: Perflutren Lipid Microsphere 1.3 ML in 0.9 % Sodium Chloride 8.7 ML IVP PRN (05:38)
[2021-10-30] MEDS: 0.9 % Sodium Chloride 1,000 ML IVC SCH ×2 (06:35→21:03)
[2021-10-30] MEDS ORDERED: Levothyroxine Sodium 100 MCG VIAL IVP SCH (09:00)
[2021-10-30] MEDS ORDERED: Dextrose Gel 15 GM/37.5 ML TUBE PO PRN ×2 (11:15)
[2021-10-30] MEDS ORDERED: D5% in Water 1,000 ML IVC PRN (11:15)
[2021-10-30] MEDS ORDERED: *HR* Dextrose 50 % in Water (Syg) 50 ML SYRINGE IVP PRN (11:15)
[2021-10-30] MEDS: Insulin LISPRO 300 UNITS/3 ML VIAL SUBQ SCH ×2 (12:09→17:40)
[2021-10-30 12:30] LABS: Estimated Average Glucose 183 mg/dl
[2021-10-30] MEDS ORDERED: cefTRIAXone 1,000 MG in Water for inj. (sterile) 10 ML IVP SCH (13:00)
[2021-10-30] MEDS ORDERED: Cyanocobalamin (B-12) 1,000 MCG/ML VIAL IM ONE (13:05)
[2021-10-30] MEDS ORDERED: Levothyroxine Sodium 100 MCG VIAL IVP ONE (13:30)
[2021-10-30] MEDS ORDERED: Furosemide 20 MG/2 ML VIAL IVP SCH ×2 (14:15→21:00)
[2021-10-30 14:42] LABS: INR 1.1; Prothrombin Time 12.8 Seconds (9.4-12.1)
[2021-10-30 14:56] LABS: Magnesium 1.9 mg/dL (1.6-2.6)
[2021-10-30 15:07] LABS: Procalcitonin 0.1 ng/mL (0.00-0.15)
[2021-10-30 16:36] LABS: ABG Base Excess 10 mEq/L (-2 to 3); ABG HCO3 37 mEq/L (21-27); ABG Oxygen Saturation 91 % (95-98); ABG PCO2 61 mmHg (35-45); ABG PH 7.39 pH Units (7.32-7.45); ABG PO2 63 mmHg (85-104); ABG TCO2 39 mEq/L (20-26)
[2021-10-30] MEDS ORDERED: 0.9 % Sodium Chloride 1,000 ML IVC SCH (17:00)
[2021-10-30] MEDS: *HR* Heparin 5,000 UNIT/ML VIAL SQ SCH (17:39)
[2021-10-30] MEDS ORDERED: Ondansetron 4 MG/2 ML VIAL IVP PRN (17:50)
[2021-10-30] MEDS: Thiamine (B-1) 100 MG in 0.9 % Sodium Chloride 50 ML IVPB SCH ×2 (17:55→21:04)
[2021-10-31] MEDS: Insulin LISPRO 300 UNITS/3 ML VIAL SUBQ SCH ×2 (01:38→05:24)
[2021-10-31 05:16] LABS: Eosinophils % 3.1 %
[2021-10-31 05:17] LABS: Basophils # 0.1 K/mcL (0.0-0.2); Basophils % 0.5 %; Eosinophils # 0.3 K/mcL (0.0-0.6); Hematocrit 29.1 % (37.5-50.1); Hemoglobin 8.5 g/dL (12.9-16.9); Immature Granulocytes % 0.5 % (0-4); Lymphocytes # 1.5 K/mcL (0.6-4.6); Lymphocytes % 15.7 %; Mean Corpuscular HGB Conc 29.2 g/dL (31.6-35.5); Mean Corpuscular Hemoglobin 24.2 pg (28.0-33.3); Mean Corpuscular Volume 82.9 fL (83.0-100.0); Mean Platelet Volume 11.4 fL (9.4-12.4); Monocytes # 0.7 K/mcL (0.0-1.3); Monocytes % 6.9 %; Neutrophils # 6.9 K/mcL (1.6-8.9); Platelet Count 116 K/mcL (140-400); Red Blood Count 3.51 M/mcL (4.19-5.50); Segmented Neutrophils % 73.3 %; White Blood Count 9.4 K/mcL (4.3-11.1)
[2021-10-31] MEDS: *HR* Heparin 5,000 UNIT/ML VIAL SQ SCH (05:24)
[2021-10-31 05:38] LABS: Calcium 8.4 mg/dL (8.6-10.3); Chol/HDL Ratio 6.5 (0-4.9); Potassium 4.3 mEq/L (3.5-5.1)
[2021-10-31 08:27] VITALS: BP 163/71; PULSE 76; TEMP 98.2; O2SAT 90
[2021-10-31] MEDS: 0.9 % Sodium Chloride 1,000 ML IVC SCH (08:27)
[2021-10-31] MEDS ORDERED: Levothyroxine Sodium 100 MCG VIAL IVP SCH (09:00)
[2021-10-31] MEDS: Thiamine (B-1) 100 MG in 0.9 % Sodium Chloride 50 ML IVPB SCH (10:33)
== END 2021-10-31 11:57 | disposition short-term general hospital (02) ==
LOC: EMEROOARM 17:09 → 2ANU 17:09 → SUATTDRO 10-30 05:21 → 2ANU 10-30 06:09
PROVIDERS: ADMIT Internal Medicine; ATTEND General Practice

== ENCOUNTER 2021-12-03 10:40 | Observation (INO) ==
[2021-12-03] MEDS ORDERED: Ringers Solution, Lactated 1,000 ML IVC ONE (10:49)
[2021-12-03] MEDS ORDERED: Isovue-370 500 ML BOTTLE IVP ONE (10:53)
[2021-12-03] MEDS ORDERED: 0.9 % Sodium Chloride 1,000 ML IVC ONE (10:58)
[2021-12-03] MEDS ORDERED: 0.9 % Sodium Chloride 1,000 ML ONE (11:18)
[2021-12-03 11:23] LABS: Basophils % 0.8 %; Red Cell Distribution Width 15.9 % (11.5-14.5)
[2021-12-03 11:24] LABS: INR 1.2; Prothrombin Time 13.2 Seconds (9.4-12.1)
[2021-12-03 11:25] LABS: Basophils # 0.1 K/mcL (0.0-0.2); Eosinophils # 0.5 K/mcL (0.0-0.6); Eosinophils % 5.2 %; Hematocrit 26.7 % (37.5-50.1); Hemoglobin 7.6 g/dL (12.9-16.9); Immature Granulocytes % 0.5 % (0-4); Lymphocytes # 1.7 K/mcL (0.6-4.6); Lymphocytes % 18.4 %; Mean Corpuscular HGB Conc 28.5 g/dL (31.6-35.5); Mean Corpuscular Hemoglobin 23.4 pg (28.0-33.3); Mean Corpuscular Volume 82.2 fL (83.0-100.0); Mean Platelet Volume 11.6 fL (9.4-12.4); Monocytes # 0.7 K/mcL (0.0-1.3); Monocytes % 7.5 %; Neutrophils # 6.3 K/mcL (1.6-8.9); Platelet Count 131 K/mcL (140-400); Red Blood Count 3.25 M/mcL (4.19-5.50); Segmented Neutrophils % 67.6 %; White Blood Count 9.3 K/mcL (4.3-11.1)
[2021-12-03 11:26] LABS: Activated Partial Thrombo Time 34.1 Seconds (26.0-36.0)
[2021-12-03 12:02] LABS: Alanine Aminotransferase 19 Units/L (7-52); Albumin 3.7 g/dL (3.5-5.7); Albumin/Globulin Ratio 1.1 (1.1-2.2); Alkaline Phosphatase 129 Units/L (34-104); Aspartate Amino Transferase 30 Units/L (13-39); BUN/Creatinine Ratio 18 (6-26); Bilirubin,Direct 0.1 mg/dL (0.0-0.2); Bilirubin,Indirect 0.3 mg/dL (0.0-1.0); Bilirubin,Total 0.4 mg/dL (0.3-1.0); Blood Urea Nitrogen 36 mg/dL (8-23); Calcium 8.9 mg/dL (8.6-10.3); Carbon Dioxide 28 mEq/L (23-29); Chloride 106 mEq/L (98-107); Ethanol < 10 mg/dL (Less than 10); Globulin 3.3 g/dL (2.4-3.5); Glucose 95 mg/dL (70-105); Magnesium 2.1 mg/dL (1.6-2.6); Osmolality,Calculated 298 (280-300); Phosphorous 3.9 mg/dL (2.7-4.5); Potassium 4.1 mEq/L (3.5-5.1); Sodium 140 mEq/L (136-145); Thyroid Stimulating Hormone 32.752 mcIU/mL (0.340-5.600); Triiodothyronine (T3) Free 2.45 pg/mL (2.50-3.90); Troponin I 0.03 ng/mL (< 0.04); eGFR For African Americans 40 (> 60); eGFR For Non-African Americans 33 (> 60)
[2021-12-03] MEDS ORDERED: 0.9 % Sodium Chloride 500 ML IVC ONE ×3 (12:22→16:47)
[2021-12-03 12:24] LABS: Influenza A PCR Negative (Negative); Influenza B PCR Negative (Negative); Resp. Syncytial Virus PCR Negative (Negative)
[2021-12-03 12:28] LABS: SARS-CoV-2 by PCR (In House) Negative (Negative)
[2021-12-03 13:17] LABS: Bilirubin,Urine Negative (Negative); Blood,Urine Negative (Negative); Clarity,Urine Clear (Clear); Color,Urine Light-Yellow (Yellow); Glucose,Urine (UA) Normal (Normal); Hyaline Casts,Urine Few per lpf (None Seen); Ketones,Urine Negative (Negative); Leukocyte Esterase,Urine Large (Negative); Nitrite,Urine Positive (Negative); PH,Urine 6.5 pH Units (5.0-8.0); Protein,Urine Negative (Neg-Trace); RBC,Urine 0-3 per hpf (0-3); Specific Gravity,Urine 1.013 (1.010-1.025); Squamous Epithelial Cell,Urine Few per hpf (None-Few); Urobilinogen,Urine Normal (Normal); WBC,Urine 15-30 per hpf (0-3)
[2021-12-03 13:18] LABS: Amphetamine Screen,Urine Negative ng/mL (Cutoff=1000); Barbiturate Screen,Urine Negative ng/mL (Cutoff=200); Benzodiazepines Screen,Urine Negative ng/mL (Cutoff=200); Cannabinoid Screen,Urine Negative ng/mL (Cutoff = 50); Cocaine Screen,Urine Negative ng/mL (Cutoff= 300); Opiate Screen,Urine Negative ng/mL (Cutoff=300); Phencyclidine Screen,Urine Negative ng/mL (Cutoff=25)
[2021-12-03] MEDS ORDERED: cefTRIAXone 1,000 MG in Water for inj. (sterile) 10 ML IVP ONE (13:37)
[2021-12-03] MEDS ORDERED: cefTRIAXone 1,000 MG in 0.9 % Sodium Chloride Mini Bag 100 ML IVPB ONE (15:00)
[2021-12-03] MEDS ORDERED: Levothyroxine Sodium 100 MCG VIAL IVP STA (16:14)
[2021-12-03] MEDS ORDERED: Ondansetron 4 MG/2 ML VIAL IVP PRN (17:08)
[2021-12-03] MEDS ORDERED: Naloxone 0.4 MG/ML INJ IVP PRN (17:08)
[2021-12-03] MEDS ORDERED: D5% in Water 1,000 ML IVC PRN (17:09)
[2021-12-03] MEDS ORDERED: *HR* Dextrose 50 % in Water (Syg) 50 ML SYRINGE IVP PRN (17:09)
[2021-12-03] MEDS ORDERED: Dextrose Gel 15 GM/37.5 ML TUBE PO PRN ×2 (17:09)
[2021-12-03] MEDS ORDERED: Ringers Solution, Lactated 1,000 ML IVC SCH ×2 (17:15→20:15)
[2021-12-03] MEDS ORDERED: Piperacillin/Tazobactam 3.375 GM in 0.9 % Sodium Chloride Mini Bag 100 ML IVPB SCH (18:07)
[2021-12-03] MEDS: Vancomycin 1,500 MG/265 ML IV.SOLN IVPB SCH (18:15)
[2021-12-03] MEDS: Insulin LISPRO 300 UNITS/3 ML VIAL SUBQ SCH (18:23)
[2021-12-03] MEDS: Piperacillin/Tazobactam 3.375 GM in 0.9 % Sodium Chloride Mini Bag 100 ML IVPB SCH (20:20)
[2021-12-04] MEDS: Insulin LISPRO 300 UNITS/3 ML VIAL SUBQ SCH ×5 (00:49→20:28)
[2021-12-04 02:46] LABS: Immature Granulocytes % 0.5 % (0-4)
[2021-12-04 02:48] LABS: Basophils # 0.1 K/mcL (0.0-0.2); Basophils % 0.9 %; Eosinophils # 0.4 K/mcL (0.0-0.6); Eosinophils % 6.6 %; Hematocrit 31.5 % (37.5-50.1); Hemoglobin 8.6 g/dL (12.9-16.9); Immature Platelets 6.5 % (1.1-6.1); Lymphocytes # 1.2 K/mcL (0.6-4.6); Lymphocytes % 18.3 %; Mean Corpuscular HGB Conc 27.3 g/dL (31.6-35.5); Mean Corpuscular Hemoglobin 23.2 pg (28.0-33.3); Mean Corpuscular Volume 84.9 fL (83.0-100.0); Mean Platelet Volume 12.3 fL (9.4-12.4); Monocytes # 0.6 K/mcL (0.0-1.3); Monocytes % 8.6 %; Neutrophils # 4.2 K/mcL (1.6-8.9); Red Blood Count 3.71 M/mcL (4.19-5.50); Red Cell Distribution Width 16.1 % (11.5-14.5); Segmented Neutrophils % 65.1 %; White Blood Count 6.4 K/mcL (4.3-11.1)
[2021-12-04 03:08] LABS: Platelet Count 92 K/mcL (140-400); Platelet Estimate Slight Decrease (Normal)
[2021-12-04 03:23] LABS: Calcium 8.5 mg/dL (8.6-10.3); Magnesium 1.9 mg/dL (1.6-2.6); Phosphorous 4.6 mg/dL (2.7-4.5); Potassium 4.5 mEq/L (3.5-5.1)
[2021-12-04 03:33] LABS: Estimated Average Glucose 186 mg/dl; Hemoglobin A1C 8.1 %
[2021-12-04] MEDS: Piperacillin/Tazobactam 3.375 GM in 0.9 % Sodium Chloride Mini Bag 100 ML IVPB SCH ×3 (06:04→20:24)
[2021-12-04] MEDS: Aspirin 81 MG TAB.CHEW PO SCH (11:57)
[2021-12-04] MEDS: Hydromorphone (Pf) [Hydromorphone Intrathecal Pump IT SCH (11:57)
[2021-12-04] MEDS: cloNIDine HCL 0.1 MG TABLET PO SCH ×2 (12:02→20:26)
[2021-12-04] MEDS ORDERED: tiZANidine 4 MG TABLET PO ONE (12:11)
[2021-12-04] MEDS: Vancomycin 1,500 MG/265 ML IV.SOLN IVPB SCH (17:52)
[2021-12-04] MEDS: Acetaminophen 325 MG TABLET PO PRN (20:26)
[2021-12-05 03:32] LABS: Mean Corpuscular Volume 80.2 fL (83.0-100.0)
[2021-12-05 03:34] LABS: Basophils % 0.6 %; Eosinophils # 0.3 K/mcL (0.0-0.6); Eosinophils % 5.2 %; Hematocrit 26.7 % (37.5-50.1); Hemoglobin 7.6 g/dL (12.9-16.9); Immature Granulocytes % 0.3 % (0-4); Immature Platelets 7.6 % (1.1-6.1); Lymphocytes # 1.2 K/mcL (0.6-4.6); Lymphocytes % 19.5 %; Mean Corpuscular HGB Conc 28.5 g/dL (31.6-35.5); Mean Corpuscular Hemoglobin 22.8 pg (28.0-33.3); Mean Platelet Volume 11.9 fL (9.4-12.4); Monocytes # 0.6 K/mcL (0.0-1.3); Monocytes % 9.9 %; Red Blood Count 3.33 M/mcL (4.19-5.50); Red Cell Distribution Width 15.8 % (11.5-14.5); Segmented Neutrophils % 64.5 %; White Blood Count 6.2 K/mcL (4.3-11.1)
[2021-12-05 03:36] LABS: Platelet Count 90 K/mcL (140-400)
[2021-12-05] MEDS: Piperacillin/Tazobactam 3.375 GM in 0.9 % Sodium Chloride Mini Bag 100 ML IVPB SCH ×3 (03:37→20:50)
[2021-12-05] MEDS: Acetaminophen 325 MG TABLET PO PRN (03:39)
[2021-12-05 03:51] LABS: Calcium 8.5 mg/dL (8.6-10.3); Magnesium 1.8 mg/dL (1.6-2.6); Phosphorous 2.7 mg/dL (2.7-4.5); Potassium 4.2 mEq/L (3.5-5.1)
[2021-12-05] MEDS: Insulin LISPRO 300 UNITS/3 ML VIAL SUBQ SCH ×4 (08:12→20:58)
[2021-12-05] MEDS: Aspirin 81 MG TAB.CHEW PO SCH (08:13)
[2021-12-05] MEDS: Loratadine 10 MG TABLET PO SCH (08:14)
[2021-12-05] MEDS: cloNIDine HCL 0.1 MG TABLET PO SCH ×2 (08:14→20:56)
[2021-12-05] MEDS: Hydromorphone (Pf) [Hydromorphone Intrathecal Pump IT SCH (12:11)
[2021-12-05] MEDS: Vancomycin 1,500 MG/265 ML IV.SOLN IVPB SCH (17:36)
[2021-12-05] MEDS ORDERED: *HR* HYDROcodone/Acet 10/325 mg TABLET PO ONE (20:33)
[2021-12-06] MEDS: Piperacillin/Tazobactam 3.375 GM in 0.9 % Sodium Chloride Mini Bag 100 ML IVPB SCH ×3 (04:48→13:48)
[2021-12-06 05:23] LABS: Basophils % 0.7 %; Red Cell Distribution Width 15.6 % (11.5-14.5)
[2021-12-06 05:25] LABS: Basophils # 0.1 K/mcL (0.0-0.2); Eosinophils # 0.4 K/mcL (0.0-0.6); Eosinophils % 5.1 %; Hematocrit 26.7 % (37.5-50.1); Hemoglobin 7.9 g/dL (12.9-16.9); Immature Granulocytes % 0.7 % (0-4); Immature Platelets 8.9 % (1.1-6.1); Lymphocytes # 1.4 K/mcL (0.6-4.6); Lymphocytes % 19.2 %; Mean Corpuscular HGB Conc 29.6 g/dL (31.6-35.5); Mean Corpuscular Hemoglobin 23.4 pg (28.0-33.3); Mean Platelet Volume 11.8 fL (9.4-12.4); Monocytes # 0.6 K/mcL (0.0-1.3); Monocytes % 8.4 %; Neutrophils # 4.7 K/mcL (1.6-8.9); Red Blood Count 3.38 M/mcL (4.19-5.50); Segmented Neutrophils % 65.9 %; White Blood Count 7.1 K/mcL (4.3-11.1)
[2021-12-06 05:34] LABS: Platelet Count 89 K/mcL (140-400)
[2021-12-06 05:38] LABS: BUN/Creatinine Ratio 16 (6-26); Blood Urea Nitrogen 21 mg/dL (8-23); Calcium 8.9 mg/dL (8.6-10.3); Carbon Dioxide 25 mEq/L (23-29); Chloride 104 mEq/L (98-107); Glucose 184 mg/dL (70-105); Osmolality,Calculated 292 (280-300); Potassium 4.2 mEq/L (3.5-5.1); Sodium 137 mEq/L (136-145); eGFR For African Americans > 60 (> 60); eGFR For Non-African Americans 52 (> 60)
[2021-12-06] MEDS: cloNIDine HCL 0.1 MG TABLET PO SCH (09:10)
[2021-12-06] MEDS: Loratadine 10 MG TABLET PO SCH (09:10)
[2021-12-06] MEDS: Aspirin 81 MG TAB.CHEW PO SCH (09:10)
[2021-12-06] MEDS: Insulin LISPRO 300 UNITS/3 ML VIAL SUBQ SCH ×2 (09:11→12:20)
[2021-12-06 11:24] VITALS: BP 154/69; PULSE 65; TEMP 98.6; O2SAT 94
[2021-12-06] MEDS ORDERED: Moderna Covid-19 Vaccine 100MCG/0.5mL IM ONE (14:00)
[2021-12-06] MEDS ORDERED: Vancomycin 2,000 MG/520 ML IV.SOLN IVPB SCH (18:00)
== END 2021-12-06 15:16 | disposition home health service (06) ==
LOC: 3ANU 10:40 → EMEROOARM 10:40 → SUATTDRO 17:19 → 3ANU 17:51
PROVIDERS: ADMIT Pharmacist; ATTEND Registered Nurse

== ENCOUNTER 2021-12-21 09:40 | Inpatient (IN) ==
[2021-12-21] MEDS ORDERED: Acetaminophen 325 MG TABLET PO ONE (10:15)
[2021-12-21] MEDS ORDERED: *HR* HYDROcodone/Acet 5/325 mg TABLET PO PRN ×2 (10:45→15:07)
[2021-12-21] MEDS ORDERED: Ketorolac 30 MG/ML VIAL IVP ONE (11:51)
[2021-12-21 12:48] LABS: Eosinophils % 5.2 %
[2021-12-21 12:50] LABS: Basophils # 0.1 K/mcL (0.0-0.2); Basophils % 0.6 %; Eosinophils # 0.4 K/mcL (0.0-0.6); Hematocrit 27.6 % (37.5-50.1); Hemoglobin 8.1 g/dL (12.9-16.9); Immature Granulocytes % 0.5 % (0-4); Lymphocytes # 1.4 K/mcL (0.6-4.6); Lymphocytes % 17.7 %; Mean Corpuscular HGB Conc 29.3 g/dL (31.6-35.5); Mean Corpuscular Hemoglobin 23.4 pg (28.0-33.3); Mean Corpuscular Volume 79.8 fL (83.0-100.0); Mean Platelet Volume 12.6 fL (9.4-12.4); Monocytes # 0.7 K/mcL (0.0-1.3); Monocytes % 8.4 %; Neutrophils # 5.3 K/mcL (1.6-8.9); Platelet Count 104 K/mcL (140-400); Red Blood Count 3.46 M/mcL (4.19-5.50); Red Cell Distribution Width 16.8 % (11.5-14.5); Segmented Neutrophils % 67.6 %; White Blood Count 7.9 K/mcL (4.3-11.1)
[2021-12-21 13:21] LABS: Hypochromasia Present (Not Present)
[2021-12-21 13:22] LABS: Platelet Estimate Decreased (Normal)
[2021-12-21 13:36] LABS: Calcium 9.6 mg/dL (8.6-10.3); Potassium 4.3 mEq/L (3.5-5.1)
[2021-12-21] MEDS ORDERED: 0.9 % Sodium Chloride 1,000 ML IVC ONE (13:39)
[2021-12-21 14:57] LABS: Influenza A PCR Negative (Negative); Influenza B PCR Negative (Negative); Resp. Syncytial Virus PCR Negative (Negative)
[2021-12-21] MEDS ORDERED: Acetaminophen 325 MG TABLET PO PRN (15:07)
[2021-12-21] MEDS ORDERED: Melatonin 3 MG TABLET PO PRN (15:07)
[2021-12-21] MEDS ORDERED: Naloxone 0.4 MG/ML INJ IVP PRN (15:07)
[2021-12-21 15:10] LABS: SARS-CoV-2 by PCR (In House) Negative (Negative)
[2021-12-21] MEDS: (Hydromorphone (Pf) [Hydromorphone Intrathecal Pump] IT SCH (17:47)
[2021-12-21] MEDS: Sucralfate 1 GM TABLET PO SCH ×2 (17:49→21:20)
[2021-12-21] MEDS: 0.9 % Sodium Chloride 1,000 ML IVC SCH (17:50)
[2021-12-21] MEDS ORDERED: D5% in Water 1,000 ML IVC PRN (18:26)
[2021-12-21] MEDS ORDERED: *HR* Dextrose 50 % in Water (Syg) 50 ML SYRINGE IVP PRN (18:26)
[2021-12-21] MEDS ORDERED: Dextrose Gel 15 GM/37.5 ML TUBE PO PRN ×2 (18:26)
[2021-12-21 20:04] LABS: Bilirubin,Urine Negative (Negative); Blood,Urine Negative (Negative); Clarity,Urine Clear (Clear); Color,Urine Light-Yellow (Yellow); Glucose,Urine (UA) Normal (Normal); Ketones,Urine Negative (Negative); Leukocyte Esterase,Urine Negative (Negative); Nitrite,Urine Negative (Negative); PH,Urine 5.5 pH Units (5.0-8.0); Protein,Urine Negative (Neg-Trace); Specific Gravity,Urine 1.016 (1.010-1.025); Urobilinogen,Urine Normal (Normal)
[2021-12-21] MEDS ORDERED: Insulin LISPRO 300 UNITS/3 ML VIAL SUBQ SCH (21:00)
[2021-12-21] MEDS: Gabapentin 300 MG CAPSULE PO SCH (21:20)
[2021-12-21] MEDS: cloNIDine HCL 0.1 MG TABLET PO SCH (21:20)
[2021-12-21] MEDS: Baclofen 10 MG TABLET PO SCH (21:20)
[2021-12-22] MEDS ORDERED: Acetaminophen IV 1,000 MG/100 ML BAG IVPB ONE (00:03)
[2021-12-22 02:40] LABS: Basophils % 0.7 %; Eosinophils # 0.3 K/mcL (0.0-0.6); Eosinophils % 5.7 %; Hematocrit 26.3 % (37.5-50.1); Hemoglobin 7.4 g/dL (12.9-16.9); Immature Granulocytes % 0.3 % (0-4); Immature Platelets 7.8 % (1.1-6.1); Lymphocytes # 1.2 K/mcL (0.6-4.6); Lymphocytes % 20.1 %; Mean Corpuscular HGB Conc 28.1 g/dL (31.6-35.5); Mean Corpuscular Hemoglobin 22.6 pg (28.0-33.3); Mean Corpuscular Volume 80.2 fL (83.0-100.0); Mean Platelet Volume 11.9 fL (9.4-12.4); Monocytes # 0.4 K/mcL (0.0-1.3); Monocytes % 7.4 %; Neutrophils # 3.9 K/mcL (1.6-8.9); Red Blood Count 3.28 M/mcL (4.19-5.50); Red Cell Distribution Width 16.7 % (11.5-14.5); Segmented Neutrophils % 65.8 %; White Blood Count 5.9 K/mcL (4.3-11.1)
[2021-12-22 02:44] LABS: Platelet Count 88 K/mcL (140-400)
[2021-12-22 03:04] LABS: Albumin 3.5 g/dL (3.5-5.7); Albumin/Globulin Ratio 1.2 (1.1-2.2); Bilirubin,Total 0.6 mg/dL (0.3-1.0); Calcium 8.4 mg/dL (8.6-10.3); Potassium 4.5 mEq/L (3.5-5.1); Total Protein 6.5 g/dL (6.4-8.9)
[2021-12-22] MEDS: 0.9 % Sodium Chloride 1,000 ML IVC SCH (05:33)
[2021-12-22] MEDS: *HR* Heparin 5,000 UNIT/ML VIAL SQ SCH ×2 (05:33→18:27)
[2021-12-22] MEDS: cloNIDine HCL 0.1 MG TABLET PO SCH ×2 (07:23→20:03)
[2021-12-22] MEDS: Sucralfate 1 GM TABLET PO SCH ×4 (07:23→20:03)
[2021-12-22] MEDS: Baclofen 10 MG TABLET PO SCH ×3 (07:23→20:04)
[2021-12-22] MEDS: Gabapentin 300 MG CAPSULE PO SCH ×3 (07:29→20:03)
[2021-12-22] MEDS ORDERED: Insulin LISPRO 300 UNITS/3 ML VIAL SUBQ SCH (07:30)
[2021-12-22] MEDS: Furosemide 20 MG TABLET PO SCH (08:20)
[2021-12-22] MEDS: Multivit/Ca/Min/Fe/FA 1 TAB TABLET PO SCH (08:20)
[2021-12-22] MEDS: Aspirin 81 MG TAB.CHEW PO SCH (08:21)
[2021-12-22] MEDS: Loratadine 10 MG TABLET PO SCH (08:21)
[2021-12-22] MEDS: (Hydromorphone (Pf) [Hydromorphone Intrathecal Pump] IT SCH (15:37)
[2021-12-23] MEDS: *HR* Heparin 5,000 UNIT/ML VIAL SQ SCH ×2 (05:35→17:04)
[2021-12-23] MEDS: Loratadine 10 MG TABLET PO SCH (07:41)
[2021-12-23] MEDS: Furosemide 20 MG TABLET PO SCH (07:41)
[2021-12-23] MEDS: Aspirin 81 MG TAB.CHEW PO SCH (07:41)
[2021-12-23] MEDS: Sucralfate 1 GM TABLET PO SCH ×4 (07:42→22:50)
[2021-12-23] MEDS: Multivit/Ca/Min/Fe/FA 1 TAB TABLET PO SCH (07:42)
[2021-12-23] MEDS: Baclofen 10 MG TABLET PO SCH ×3 (07:42→22:48)
[2021-12-23] MEDS: cloNIDine HCL 0.1 MG TABLET PO SCH ×2 (07:42→22:48)
[2021-12-23] MEDS: Gabapentin 300 MG CAPSULE PO SCH ×3 (07:42→22:48)
[2021-12-23 08:41] LABS: Hematocrit 28.9 % (37.5-50.1); Hemoglobin 8.3 g/dL (12.9-16.9); Immature Platelets 9.8 % (1.1-6.1); Mean Corpuscular HGB Conc 28.7 g/dL (31.6-35.5); Mean Corpuscular Hemoglobin 23.2 pg (28.0-33.3); Mean Corpuscular Volume 80.7 fL (83.0-100.0); Mean Platelet Volume 11.7 fL (9.4-12.4); Red Blood Count 3.58 M/mcL (4.19-5.50); Red Cell Distribution Width 16.7 % (11.5-14.5); White Blood Count 6.1 K/mcL (4.3-11.1)
[2021-12-23 08:53] LABS: Calcium 8.6 mg/dL (8.6-10.3); Potassium 4.4 mEq/L (3.5-5.1)
[2021-12-23] MEDS ORDERED: Dextrose Gel 15 GM/37.5 ML TUBE PO PRN ×2 (09:07)
[2021-12-23] MEDS ORDERED: *HR* Dextrose 50 % in Water (Syg) 50 ML SYRINGE IVP PRN (09:07)
[2021-12-23] MEDS ORDERED: D5% in Water 1,000 ML IVC PRN (09:07)
[2021-12-23] MEDS: Insulin LISPRO 300 UNITS/3 ML VIAL SUBQ SCH ×3 (11:48→22:56)
[2021-12-23] MEDS: Insulin DETEMIR 100 UNIT/ML X5UNITS SUBQ SCH ×2 (16:46→22:55)
[2021-12-23] MEDS: (Hydromorphone (Pf) [Hydromorphone Intrathecal Pump] IT SCH (16:47)
[2021-12-24 01:59] LABS: Mean Corpuscular Volume 80.3 fL (83.0-100.0); Mean Platelet Volume 12.6 fL (9.4-12.4)
[2021-12-24 02:00] LABS: Hematocrit 24.9 % (37.5-50.1); Hemoglobin 7.2 g/dL (12.9-16.9); Mean Corpuscular HGB Conc 28.9 g/dL (31.6-35.5); Mean Corpuscular Hemoglobin 23.2 pg (28.0-33.3); Platelet Count 109 K/mcL (140-400); Red Cell Distribution Width 16.7 % (11.5-14.5)
[2021-12-24 02:20] LABS: Calcium 8.1 mg/dL (8.6-10.3); Potassium 4.4 mEq/L (3.5-5.1)
[2021-12-24] MEDS: *HR* Heparin 5,000 UNIT/ML VIAL SQ SCH ×2 (04:15→17:47)
[2021-12-24 08:42] LABS: VBG HCO3 29 mEq/L (21-27); VBG PCO2 43 mmHg (41-51); VBG PH 7.43 pH Units (7.32-7.42); VBG PO2 149 mmHg (25-50)
[2021-12-24] MEDS: Loratadine 10 MG TABLET PO SCH (09:23)
[2021-12-24] MEDS: Multivit/Ca/Min/Fe/FA 1 TAB TABLET PO SCH (09:24)
[2021-12-24] MEDS: cloNIDine HCL 0.1 MG TABLET PO SCH ×2 (09:24→20:09)
[2021-12-24] MEDS: Furosemide 20 MG TABLET PO SCH (09:24)
[2021-12-24] MEDS: Baclofen 10 MG TABLET PO SCH ×3 (09:24→20:10)
[2021-12-24] MEDS: Aspirin 81 MG TAB.CHEW PO SCH (09:24)
[2021-12-24] MEDS: Sucralfate 1 GM TABLET PO SCH ×4 (09:25→20:19)
[2021-12-24] MEDS: Gabapentin 300 MG CAPSULE PO SCH ×3 (09:28→20:10)
[2021-12-24] MEDS: Insulin LISPRO 300 UNITS/3 ML VIAL SUBQ SCH ×4 (09:29→20:09)
[2021-12-24] MEDS: Insulin DETEMIR 100 UNIT/ML X5UNITS SUBQ SCH ×2 (09:33→20:10)
[2021-12-24] MEDS: (Hydromorphone (Pf) [Hydromorphone Intrathecal Pump] IT SCH (14:37)
[2021-12-25] MEDS: *HR* Heparin 5,000 UNIT/ML VIAL SQ SCH ×2 (05:14→18:22)
[2021-12-25] MEDS: Sucralfate 1 GM TABLET PO SCH ×4 (07:34→22:08)
[2021-12-25] MEDS: Furosemide 20 MG TABLET PO SCH (07:34)
[2021-12-25] MEDS: Multivit/Ca/Min/Fe/FA 1 TAB TABLET PO SCH ×2 (07:35→09:04)
[2021-12-25] MEDS: Loratadine 10 MG TABLET PO SCH ×2 (07:35→09:04)
[2021-12-25] MEDS: Aspirin 81 MG TAB.CHEW PO SCH (07:35)
[2021-12-25] MEDS: Baclofen 10 MG TABLET PO SCH (07:35)
[2021-12-25] MEDS: cloNIDine HCL 0.1 MG TABLET PO SCH ×2 (07:35→22:08)
[2021-12-25] MEDS: Gabapentin 300 MG CAPSULE PO SCH (07:42)
[2021-12-25] MEDS: Insulin DETEMIR 100 UNIT/ML X5UNITS SUBQ SCH ×2 (08:47→22:14)
[2021-12-25] MEDS: Insulin LISPRO 300 UNITS/3 ML VIAL SUBQ SCH ×4 (08:47→22:09)
[2021-12-25] MEDS: Thiamine (B-1) 100 MG TABLET PO SCH (11:26)
[2021-12-25 11:40] LABS: Hemoglobin 7.7 g/dL (12.9-16.9); Mean Corpuscular HGB Conc 27.5 g/dL (31.6-35.5); Mean Corpuscular Hemoglobin 22.6 pg (28.0-33.3); Mean Corpuscular Volume 82.4 fL (83.0-100.0); Mean Platelet Volume 11.6 fL (9.4-12.4); Red Cell Distribution Width 18.1 % (11.5-14.5); White Blood Count 7.8 K/mcL (4.3-11.1)
[2021-12-25 11:42] LABS: Platelet Count 96 K/mcL (140-400)
[2021-12-25 12:10] LABS: Albumin 3.6 g/dL (3.5-5.7); Albumin/Globulin Ratio 1.2 (1.1-2.2); Bilirubin,Indirect 0.5 mg/dL (0.0-1.0); Bilirubin,Total 0.5 mg/dL (0.3-1.0); Globulin 3.1 g/dL (2.4-3.5); Total Protein 6.7 g/dL (6.4-8.9)
[2021-12-25 12:12] LABS: Calcium 8.4 mg/dL (8.6-10.3); Potassium 4.1 mEq/L (3.5-5.1)
[2021-12-25 12:34] LABS: Folate 18.3 ng/mL (3.0-16.0)
[2021-12-25] MEDS: (Hydromorphone (Pf) [Hydromorphone Intrathecal Pump] IT SCH (15:33)
[2021-12-26 01:39] LABS: Hematocrit 26.6 % (37.5-50.1); Hemoglobin 7.9 g/dL (12.9-16.9); Immature Platelets 8.9 % (1.1-6.1); Mean Corpuscular HGB Conc 29.7 g/dL (31.6-35.5); Mean Corpuscular Hemoglobin 24.4 pg (28.0-33.3); Mean Corpuscular Volume 82.1 fL (83.0-100.0); Mean Platelet Volume 12.7 fL (9.4-12.4); Red Blood Count 3.24 M/mcL (4.19-5.50); Red Cell Distribution Width 18.6 % (11.5-14.5); White Blood Count 7.5 K/mcL (4.3-11.1)
[2021-12-26 01:59] LABS: Calcium 8.3 mg/dL (8.6-10.3); Potassium 4.5 mEq/L (3.5-5.1)
[2021-12-26] MEDS: *HR* Heparin 5,000 UNIT/ML VIAL SQ SCH (05:43)
[2021-12-26] MEDS: Sucralfate 1 GM TABLET PO SCH ×4 (05:43→22:08)
[2021-12-26] MEDS: Thiamine (B-1) 100 MG TABLET PO SCH (07:42)
[2021-12-26] MEDS: Loratadine 10 MG TABLET PO SCH (07:42)
[2021-12-26] MEDS: Aspirin 81 MG TAB.CHEW PO SCH (07:42)
[2021-12-26] MEDS: Multivit/Ca/Min/Fe/FA 1 TAB TABLET PO SCH (07:42)
[2021-12-26] MEDS: Insulin DETEMIR 100 UNIT/ML X5UNITS SUBQ SCH ×2 (07:42→22:12)
[2021-12-26] MEDS: cloNIDine HCL 0.1 MG TABLET PO SCH ×3 (07:42→22:08)
[2021-12-26] MEDS: Furosemide 20 MG TABLET PO SCH (07:42)
[2021-12-26] MEDS: Insulin LISPRO 300 UNITS/3 ML VIAL SUBQ SCH ×4 (07:55→23:13)
[2021-12-26] MEDS ORDERED: Ringers Solution, Lactated 1,000 ML IVC SCH (09:15)
[2021-12-26] MEDS: NIFEdipine XL (24 HR) 30 MG TAB.ER.24 PO SCH (22:23)
[2021-12-27] MEDS: (Hydromorphone (Pf) [Hydromorphone Intrathecal Pump] IT SCH ×2 (02:58→14:52)
[2021-12-27] MEDS: Insulin LISPRO 300 UNITS/3 ML VIAL SUBQ SCH ×4 (08:43→20:33)
[2021-12-27] MEDS: cloNIDine HCL 0.1 MG TABLET PO SCH ×3 (08:43→20:29)
[2021-12-27] MEDS: NIFEdipine XL (24 HR) 30 MG TAB.ER.24 PO SCH (08:43)
[2021-12-27] MEDS: Loratadine 10 MG TABLET PO SCH (08:43)
[2021-12-27] MEDS: Thiamine (B-1) 100 MG TABLET PO SCH (08:43)
[2021-12-27] MEDS: Furosemide 20 MG TABLET PO SCH (08:43)
[2021-12-27] MEDS: Multivit/Ca/Min/Fe/FA 1 TAB TABLET PO SCH (08:43)
[2021-12-27] MEDS: Aspirin 81 MG TAB.CHEW PO SCH (08:43)
[2021-12-27] MEDS: Sucralfate 1 GM TABLET PO SCH ×4 (08:43→20:29)
[2021-12-27] MEDS: Insulin DETEMIR 100 UNIT/ML X5UNITS SUBQ SCH (08:45)
[2021-12-27] MEDS ORDERED: amLODIPine 5 MG TABLET PO SCH (09:00)
[2021-12-27 09:35] LABS: Hemoglobin 8.2 g/dL (12.9-16.9); Mean Corpuscular Volume 81.8 fL (83.0-100.0); Red Cell Distribution Width 19.6 % (11.5-14.5)
[2021-12-27 09:37] LABS: Hematocrit 28.8 % (37.5-50.1); Immature Platelets 7.4 % (1.1-6.1); Mean Corpuscular HGB Conc 28.5 g/dL (31.6-35.5); Mean Corpuscular Hemoglobin 23.3 pg (28.0-33.3); Mean Platelet Volume 11.6 fL (9.4-12.4); Red Blood Count 3.52 M/mcL (4.19-5.50); White Blood Count 6.9 K/mcL (4.3-11.1)
[2021-12-27 09:51] LABS: Calcium 8.6 mg/dL (8.6-10.3); Potassium 4.3 mEq/L (3.5-5.1)
[2021-12-28] MEDS: Insulin DETEMIR 100 UNIT/ML X5UNITS SUBQ SCH ×3 (00:10→20:32)
[2021-12-28 06:16] LABS: Hematocrit 27.7 % (37.5-50.1); Hemoglobin 8.1 g/dL (12.9-16.9); Mean Corpuscular HGB Conc 29.2 g/dL (31.6-35.5); Mean Corpuscular Hemoglobin 23.8 pg (28.0-33.3); Mean Corpuscular Volume 81.2 fL (83.0-100.0); Platelet Count 105 K/mcL (140-400); Red Blood Count 3.41 M/mcL (4.19-5.50); Red Cell Distribution Width 19.9 % (11.5-14.5); White Blood Count 6.8 K/mcL (4.3-11.1)
[2021-12-28 09:06] LABS: Calcium 8.8 mg/dL (8.6-10.3); Potassium 3.9 mEq/L (3.5-5.1)
[2021-12-28] MEDS: Insulin LISPRO 300 UNITS/3 ML VIAL SUBQ SCH ×4 (09:08→20:31)
[2021-12-28] MEDS: Aspirin 81 MG TAB.CHEW PO SCH (09:14)
[2021-12-28] MEDS: Loratadine 10 MG TABLET PO SCH (09:14)
[2021-12-28] MEDS: Furosemide 20 MG TABLET PO SCH (09:14)
[2021-12-28] MEDS: cloNIDine HCL 0.1 MG TABLET PO SCH ×3 (09:14→20:31)
[2021-12-28] MEDS: NIFEdipine XL (24 HR) 30 MG TAB.ER.24 PO SCH (09:14)
[2021-12-28] MEDS: Multivit/Ca/Min/Fe/FA 1 TAB TABLET PO SCH (09:14)
[2021-12-28] MEDS: Thiamine (B-1) 100 MG TABLET PO SCH (09:15)
[2021-12-28] MEDS: Sucralfate 1 GM TABLET PO SCH ×4 (09:16→20:31)
[2021-12-28] MEDS: (Hydromorphone (Pf) [Hydromorphone Intrathecal Pump] IT SCH (16:59)
[2021-12-28] MEDS: Lactulose Oral Soln 20 GM/30 ML UDC PO SCH (20:30)
[2021-12-29 02:07] LABS: Hemoglobin 7.8 g/dL (12.9-16.9)
[2021-12-29 02:09] LABS: Immature Platelets 8.5 % (1.1-6.1); Mean Corpuscular HGB Conc 28.9 g/dL (31.6-35.5); Mean Corpuscular Hemoglobin 23.7 pg (28.0-33.3); Mean Corpuscular Volume 82.1 fL (83.0-100.0); Red Blood Count 3.29 M/mcL (4.19-5.50); Red Cell Distribution Width 20.4 % (11.5-14.5); White Blood Count 6.5 K/mcL (4.3-11.1)
[2021-12-29 02:18] LABS: Calcium 8.5 mg/dL (8.6-10.3)
[2021-12-29 08:27] LABS: Triiodothyronine (T3) Free 2.13 pg/mL (2.50-3.90)
[2021-12-29] MEDS: cloNIDine HCL 0.1 MG TABLET PO SCH ×3 (08:37→20:32)
[2021-12-29] MEDS: Furosemide 20 MG TABLET PO SCH (08:37)
[2021-12-29] MEDS: Thiamine (B-1) 100 MG TABLET PO SCH (08:37)
[2021-12-29] MEDS: NIFEdipine XL (24 HR) 30 MG TAB.ER.24 PO SCH (08:37)
[2021-12-29] MEDS: Sucralfate 1 GM TABLET PO SCH ×4 (08:38→20:32)
[2021-12-29] MEDS: Aspirin 81 MG TAB.CHEW PO SCH (08:38)
[2021-12-29] MEDS: Lactulose Oral Soln 20 GM/30 ML UDC PO SCH ×2 (08:38→20:32)
[2021-12-29] MEDS: Loratadine 10 MG TABLET PO SCH (08:38)
[2021-12-29] MEDS: Multivit/Ca/Min/Fe/FA 1 TAB TABLET PO SCH (08:44)
[2021-12-29] MEDS: Insulin DETEMIR 100 UNIT/ML X5UNITS SUBQ SCH ×2 (08:44→20:33)
[2021-12-29] MEDS: Insulin LISPRO 300 UNITS/3 ML VIAL SUBQ SCH ×4 (08:48→20:33)
[2021-12-29] MEDS: (Hydromorphone (Pf) [Hydromorphone Intrathecal Pump] IT SCH (13:29)
[2021-12-30] MEDS: Insulin LISPRO 300 UNITS/3 ML VIAL SUBQ SCH ×4 (09:08→20:22)
[2021-12-30] MEDS: Furosemide 20 MG TABLET PO SCH (09:09)
[2021-12-30] MEDS: NIFEdipine XL (24 HR) 30 MG TAB.ER.24 PO SCH (09:09)
[2021-12-30] MEDS: Thiamine (B-1) 100 MG TABLET PO SCH (09:09)
[2021-12-30] MEDS: Multivit/Ca/Min/Fe/FA 1 TAB TABLET PO SCH (09:10)
[2021-12-30] MEDS: cloNIDine HCL 0.1 MG TABLET PO SCH ×3 (09:10→20:23)
[2021-12-30] MEDS: Lactulose Oral Soln 20 GM/30 ML UDC PO SCH ×2 (09:10→20:22)
[2021-12-30] MEDS: Loratadine 10 MG TABLET PO SCH (09:10)
[2021-12-30] MEDS: Aspirin 81 MG TAB.CHEW PO SCH (09:10)
[2021-12-30] MEDS: Sucralfate 1 GM TABLET PO SCH ×4 (09:15→20:23)
[2021-12-30] MEDS: Insulin DETEMIR 100 UNIT/ML X5UNITS SUBQ SCH ×2 (09:17→20:22)
[2021-12-30] MEDS: (Hydromorphone (Pf) [Hydromorphone Intrathecal Pump] IT SCH (14:42)
[2021-12-31] MEDS: Insulin LISPRO 300 UNITS/3 ML VIAL SUBQ SCH ×4 (08:40→21:08)
[2021-12-31] MEDS: Insulin DETEMIR 100 UNIT/ML X5UNITS SUBQ SCH ×2 (08:41→21:08)
[2021-12-31] MEDS: Aspirin 81 MG TAB.CHEW PO SCH (08:42)
[2021-12-31] MEDS: Lactulose Oral Soln 20 GM/30 ML UDC PO SCH ×2 (08:42→21:08)
[2021-12-31] MEDS: NIFEdipine XL (24 HR) 30 MG TAB.ER.24 PO SCH (08:42)
[2021-12-31] MEDS: Sucralfate 1 GM TABLET PO SCH ×4 (08:42→21:07)
[2021-12-31] MEDS: cloNIDine HCL 0.1 MG TABLET PO SCH ×3 (08:43→21:07)
[2021-12-31] MEDS: Loratadine 10 MG TABLET PO SCH (08:43)
[2021-12-31] MEDS: Multivit/Ca/Min/Fe/FA 1 TAB TABLET PO SCH (08:43)
[2021-12-31] MEDS: Furosemide 20 MG TABLET PO SCH (08:43)
[2021-12-31] MEDS: Thiamine (B-1) 100 MG TABLET PO SCH (08:43)
[2021-12-31] MEDS: (Hydromorphone (Pf) [Hydromorphone Intrathecal Pump] IT SCH (15:39)
[2022-01-01] MEDS: Lactulose Oral Soln 20 GM/30 ML UDC PO SCH ×2 (07:16→20:50)
[2022-01-01] MEDS: Insulin DETEMIR 100 UNIT/ML X5UNITS SUBQ SCH ×2 (07:19→20:45)
[2022-01-01] MEDS: Aspirin 81 MG TAB.CHEW PO SCH (07:20)
[2022-01-01] MEDS: Multivit/Ca/Min/Fe/FA 1 TAB TABLET PO SCH (07:20)
[2022-01-01] MEDS: Thiamine (B-1) 100 MG TABLET PO SCH (07:20)
[2022-01-01] MEDS: NIFEdipine XL (24 HR) 30 MG TAB.ER.24 PO SCH (07:20)
[2022-01-01] MEDS: Loratadine 10 MG TABLET PO SCH (07:20)
[2022-01-01] MEDS: Furosemide 20 MG TABLET PO SCH (07:20)
[2022-01-01] MEDS: Sucralfate 1 GM TABLET PO SCH ×4 (07:20→20:45)
[2022-01-01] MEDS: cloNIDine HCL 0.1 MG TABLET PO SCH ×3 (07:20→20:45)
[2022-01-01] MEDS: Insulin LISPRO 300 UNITS/3 ML VIAL SUBQ SCH ×4 (07:22→20:50)
[2022-01-01] MEDS: (Hydromorphone (Pf) [Hydromorphone Intrathecal Pump] IT SCH (17:20)
[2022-01-02] MEDS: Sucralfate 1 GM TABLET PO SCH ×4 (07:39→21:36)
[2022-01-02] MEDS: Insulin DETEMIR 100 UNIT/ML X5UNITS SUBQ SCH ×2 (09:14→21:39)
[2022-01-02] MEDS: Lactulose Oral Soln 20 GM/30 ML UDC PO SCH ×2 (09:14→21:37)
[2022-01-02] MEDS: Insulin LISPRO 300 UNITS/3 ML VIAL SUBQ SCH ×4 (09:14→21:37)
[2022-01-02] MEDS: Thiamine (B-1) 100 MG TABLET PO SCH (09:15)
[2022-01-02] MEDS: Furosemide 20 MG TABLET PO SCH (09:15)
[2022-01-02] MEDS: NIFEdipine XL (24 HR) 30 MG TAB.ER.24 PO SCH (09:15)
[2022-01-02] MEDS: Multivit/Ca/Min/Fe/FA 1 TAB TABLET PO SCH (09:15)
[2022-01-02] MEDS: Aspirin 81 MG TAB.CHEW PO SCH (09:15)
[2022-01-02] MEDS: cloNIDine HCL 0.1 MG TABLET PO SCH ×3 (09:16→21:36)
[2022-01-02] MEDS: Loratadine 10 MG TABLET PO SCH (09:16)
[2022-01-02 09:39] LABS: Red Cell Distribution Width 23.2 % (11.5-14.5)
[2022-01-02 09:41] LABS: Hematocrit 27.2 % (37.5-50.1); Hemoglobin 8.1 g/dL (12.9-16.9); Immature Platelets 6.1 % (1.1-6.1); Mean Corpuscular HGB Conc 29.8 g/dL (31.6-35.5); Mean Corpuscular Hemoglobin 24.5 pg (28.0-33.3); Mean Corpuscular Volume 82.2 fL (83.0-100.0); Mean Platelet Volume 11.9 fL (9.4-12.4); Red Blood Count 3.31 M/mcL (4.19-5.50); White Blood Count 6.7 K/mcL (4.3-11.1)
[2022-01-02 09:53] LABS: Calcium 8.5 mg/dL (8.6-10.3); Potassium 3.6 mEq/L (3.5-5.1)
[2022-01-02] MEDS: (Hydromorphone (Pf) [Hydromorphone Intrathecal Pump] IT SCH (16:29)
[2022-01-03 07:44] VITALS: BP 107/60; PULSE 69; TEMP 99.5; O2SAT 92
[2022-01-03] MEDS: Multivit/Ca/Min/Fe/FA 1 TAB TABLET PO SCH (09:59)
[2022-01-03] MEDS: Sucralfate 1 GM TABLET PO SCH ×2 (09:59→11:32)
[2022-01-03] MEDS: Furosemide 20 MG TABLET PO SCH (09:59)
[2022-01-03] MEDS: Thiamine (B-1) 100 MG TABLET PO SCH (09:59)
[2022-01-03] MEDS: Loratadine 10 MG TABLET PO SCH (09:59)
[2022-01-03] MEDS: NIFEdipine XL (24 HR) 30 MG TAB.ER.24 PO SCH (10:00)
[2022-01-03] MEDS: Insulin LISPRO 300 UNITS/3 ML VIAL SUBQ SCH (10:00)
[2022-01-03] MEDS: cloNIDine HCL 0.1 MG TABLET PO SCH (10:00)
[2022-01-03] MEDS: Insulin DETEMIR 100 UNIT/ML X5UNITS SUBQ SCH (10:00)
[2022-01-03] MEDS: Lactulose Oral Soln 20 GM/30 ML UDC PO SCH (10:00)
[2022-01-03] MEDS: Aspirin 81 MG TAB.CHEW PO SCH (10:00)
== END 2022-01-03 12:44 | disposition home health service (06) | DRG 683 ==
LOC: EMEROOARM 09:40 → 3ANU 09:40 → SUATTDRO 12-27 10:40
PROVIDERS: ADMIT General Practice; ATTEND Registered Nurse

== ENCOUNTER 2022-01-06 13:35 | Inpatient (IN) ==
[2022-01-06 14:58] LABS: INR 1.7; Prothrombin Time 18.8 Seconds (9.4-12.1)
[2022-01-06 15:01] LABS: Activated Partial Thrombo Time 32.4 Seconds (26.0-36.0)
[2022-01-06 15:06] LABS: VBG HCO3 23 mEq/L (21-27); VBG PCO2 32 mmHg (41-51); VBG PH 7.46 pH Units (7.32-7.42); VBG PO2 80 mmHg (25-50)
[2022-01-06 15:10] LABS: Basophils % 0.4 %
[2022-01-06 15:12] LABS: Eosinophils # 0.1 K/mcL (0.0-0.6); Eosinophils % 0.6 %; Hematocrit 28.6 % (37.5-50.1); Hemoglobin 8.6 g/dL (12.9-16.9); Immature Granulocytes % 1.2 % (0-4); Lymphocytes # 1.1 K/mcL (0.6-4.6); Lymphocytes % 10.2 %; Mean Corpuscular HGB Conc 30.1 g/dL (31.6-35.5); Mean Corpuscular Hemoglobin 25.7 pg (28.0-33.3); Mean Corpuscular Volume 85.4 fL (83.0-100.0); Mean Platelet Volume 12.6 fL (9.4-12.4); Monocytes # 0.9 K/mcL (0.0-1.3); Monocytes % 7.8 %; Neutrophils # 8.9 K/mcL (1.6-8.9); Platelet Count 121 K/mcL (140-400); Red Blood Count 3.35 M/mcL (4.19-5.50); Red Cell Distribution Width 22.4 % (11.5-14.5); Segmented Neutrophils % 79.8 %; White Blood Count 11.2 K/mcL (4.3-11.1)
[2022-01-06 15:27] LABS: Alanine Aminotransferase 20 Units/L (7-52); Albumin 3.9 g/dL (3.5-5.7); Albumin/Globulin Ratio 1.1 (1.1-2.2); Alkaline Phosphatase 125 Units/L (34-104); Aspartate Amino Transferase 31 Units/L (13-39); BUN/Creatinine Ratio 25 (6-26); Bilirubin,Total 0.6 mg/dL (0.3-1.0); Blood Urea Nitrogen 47 mg/dL (8-23); Calcium 9.5 mg/dL (8.6-10.3); Carbon Dioxide 27 mEq/L (23-29); Chloride 102 mEq/L (98-107); Creatine Kinase 154 Units/L (30-223); Ethanol < 10 mg/dL (Less than 10); Globulin 3.6 g/dL (2.4-3.5); Glucose 268 mg/dL (70-105); Osmolality,Calculated 316 (280-300); Sodium 142 mEq/L (136-145); Total Protein 7.5 g/dL (6.4-8.9); eGFR For African Americans 43 (> 60); eGFR For Non-African Americans 35 (> 60)
[2022-01-06 15:34] LABS: Anisocytosis 1+ (Not Present)
[2022-01-06 15:35] LABS: Platelet Estimate Slight Decrease (Normal)
[2022-01-06] MEDS ORDERED: Pantoprazole 40 MG VIAL IVP ONE (16:06)
[2022-01-06] MEDS ORDERED: Lactulose Oral Soln 20 GM/30 ML UDC PO ONE (16:06)
[2022-01-06] MEDS ORDERED: 0.9 % Sodium Chloride 500 ML IVC ONE (16:08)
[2022-01-06 21:41] LABS: Triiodothyronine (T3) Free 2.13 pg/mL (2.50-3.90)
[2022-01-06] MEDS ORDERED: Naloxone 0.4 MG/ML INJ IVP PRN (22:28)
[2022-01-06] MEDS ORDERED: Dextrose Gel 15 GM/37.5 ML TUBE PO PRN ×2 (22:54)
[2022-01-06] MEDS ORDERED: *HR* Dextrose 50 % in Water (Syg) 50 ML SYRINGE IVP PRN (22:54)
[2022-01-06] MEDS ORDERED: D5% in Water 1,000 ML IVC PRN (22:54)
[2022-01-06 23:37] LABS: Troponin I < 0.03 ng/mL (< 0.04)
[2022-01-07] MEDS: Insulin LISPRO 300 UNITS/3 ML VIAL SUBQ SCH ×5 (00:49→23:15)
[2022-01-07 06:04] LABS: Hematocrit 24.3 % (37.5-50.1); Hemoglobin 7.1 g/dL (12.9-16.9); Immature Platelets 7.2 % (1.1-6.1); Mean Corpuscular HGB Conc 29.2 g/dL (31.6-35.5); Mean Corpuscular Hemoglobin 25.3 pg (28.0-33.3); Mean Corpuscular Volume 86.5 fL (83.0-100.0); Mean Platelet Volume 12.5 fL (9.4-12.4); Red Blood Count 2.81 M/mcL (4.19-5.50); Red Cell Distribution Width 22.7 % (11.5-14.5); White Blood Count 7.3 K/mcL (4.3-11.1)
[2022-01-07 07:10] LABS: Folate 19.7 ng/mL (3.0-16.0)
[2022-01-07 07:33] LABS: % Iron Saturation 7 % (20-55); Ferritin 50 ng/mL (20-250); Iron 20 mcg/dL (65-175); Transferrin 214 mg/dL (203-362)
[2022-01-07 07:55] LABS: BUN/Creatinine Ratio 27 (6-26); Blood Urea Nitrogen 44 mg/dL (8-23); Calcium 8.7 mg/dL (8.6-10.3); Carbon Dioxide 23 mEq/L (23-29); Chloride 106 mEq/L (98-107); Cholesterol 88 mg/dL (< 200); Glucose 195 mg/dL (70-105); HDL Cholesterol 22 mg/dL (40-59); LDL Cholesterol,Calculated 29 mg/dL (< 100); Magnesium 1.9 mg/dL (1.6-2.6); Osmolality,Calculated 311 (280-300); Potassium 3.9 mEq/L (3.5-5.1); Sodium 142 mEq/L (136-145); Triglycerides 186 mg/dL (< 150); Troponin I < 0.03 ng/mL (< 0.04); eGFR For African Americans 50 (> 60); eGFR For Non-African Americans 41 (> 60)
[2022-01-07 08:15] LABS: Estimated Average Glucose 134 mg/dl; Hemoglobin A1C 6.3 %
[2022-01-07 14:59] LABS: Bacteria,Urine Few per hpf (None-Few); Bilirubin,Urine Negative (Negative); Blood,Urine Negative (Negative); Clarity,Urine Clear (Clear); Color,Urine Yellow (Yellow); Glucose,Urine (UA) Normal (Normal); Hyaline Casts,Urine Few per lpf (None Seen); Ketones,Urine Negative (Negative); Leukocyte Esterase,Urine Large (Negative); Mucus,Urine Few per lpf (None-Few); Nitrite,Urine Positive (Negative); Protein,Urine 30 mg/dL (Neg-Trace); RBC,Urine 0-3 per hpf (0-3); Specific Gravity,Urine 1.018 (1.010-1.025); Squamous Epithelial Cell,Urine Few per hpf (None-Few); Urobilinogen,Urine Normal (Normal); WBC,Urine 50-100 per hpf (0-3)
[2022-01-07] MEDS: Sucralfate 1 GM TABLET PO SCH ×2 (15:20→21:25)
[2022-01-07] MEDS: Gabapentin 300 MG CAPSULE PO SCH ×2 (15:23→21:26)
[2022-01-07] MEDS: Iron Sucrose Complex 250 MG in 0.9 % Sodium Chloride 250 ML IVPB SCH (15:35)
[2022-01-07] MEDS ORDERED: Morphine Sulfate 2 MG/ML SYRINGE IVP ONE (20:34)
[2022-01-07] MEDS: cloNIDine HCL 0.1 MG TABLET PO SCH (21:24)
[2022-01-08 04:56] LABS: Hematocrit 24.7 % (37.5-50.1); Hemoglobin 7.6 g/dL (12.9-16.9); Mean Corpuscular HGB Conc 30.8 g/dL (31.6-35.5); Mean Corpuscular Hemoglobin 25.9 pg (28.0-33.3); Mean Corpuscular Volume 84.3 fL (83.0-100.0); Mean Platelet Volume 11.6 fL (9.4-12.4); Platelet Count 106 K/mcL (140-400); Red Blood Count 2.93 M/mcL (4.19-5.50); Red Cell Distribution Width 22.4 % (11.5-14.5)
[2022-01-08 05:15] LABS: BUN/Creatinine Ratio 26 (6-26); Blood Urea Nitrogen 31 mg/dL (8-23); Calcium 8.3 mg/dL (8.6-10.3); Carbon Dioxide 28 mEq/L (23-29); Chloride 103 mEq/L (98-107); Glucose 218 mg/dL (70-105); Magnesium 1.8 mg/dL (1.6-2.6); Osmolality,Calculated 297 (280-300); Potassium 4.1 mEq/L (3.5-5.1); Sodium 137 mEq/L (136-145); eGFR For African Americans > 60 (> 60); eGFR For Non-African Americans > 60 (> 60)
[2022-01-08] MEDS: Insulin LISPRO 300 UNITS/3 ML VIAL SUBQ SCH ×3 (05:26→18:08)
[2022-01-08] MEDS: Sucralfate 1 GM TABLET PO SCH ×4 (08:12→20:26)
[2022-01-08] MEDS: Multivit/Ca/Min/Fe/FA 1 TAB TABLET PO SCH (08:13)
[2022-01-08] MEDS: cloNIDine HCL 0.1 MG TABLET PO SCH ×2 (08:13→20:27)
[2022-01-08] MEDS: Loratadine 10 MG TABLET PO SCH (08:13)
[2022-01-08] MEDS: Gabapentin 300 MG CAPSULE PO SCH ×4 (08:13→20:35)
[2022-01-08] MEDS: Aspirin 81 MG TAB.CHEW PO SCH (08:13)
[2022-01-08] MEDS: Iron Sucrose Complex 250 MG in 0.9 % Sodium Chloride 250 ML IVPB SCH (08:36)
[2022-01-08] MEDS: Lactulose Oral Soln 20 GM/30 ML UDC PO SCH ×2 (10:05→20:26)
[2022-01-08] MEDS: *HR* OxyCODONE/APAP 7.5/325 TABLET PO PRN ×2 (10:12→20:26)
[2022-01-08 10:16] LABS: Troponin I < 0.03 ng/mL (< 0.04)
[2022-01-08] MEDS: Piperacillin/Tazobactam 3.375 GM in 0.9 % Sodium Chloride Mini Bag 100 ML IVPB SCH ×2 (12:52→20:27)
[2022-01-08] MEDS ORDERED: Acetaminophen IV 1,000 MG/100 ML BAG IVPB ONE (14:23)
[2022-01-08 16:58] LABS: Bilirubin,Urine Negative (Negative); Blood,Urine Trace (Negative); Clarity,Urine Clear (Clear); Color,Urine Yellow (Yellow); Glucose,Urine (UA) Normal (Normal); Hyaline Casts,Urine Few per lpf (None Seen); Ketones,Urine Negative (Negative); Leukocyte Esterase,Urine Large (Negative); Nitrite,Urine Positive (Negative); Protein,Urine 30 mg/dL (Neg-Trace); RBC,Urine 0-3 per hpf (0-3); Specific Gravity,Urine 1.023 (1.010-1.025); Squamous Epithelial Cell,Urine Few per hpf (None-Few); Urobilinogen,Urine Normal (Normal); WBC,Urine 50-100 per hpf (0-3)
[2022-01-09] MEDS: Insulin LISPRO 300 UNITS/3 ML VIAL SUBQ SCH ×5 (00:03→23:36)
[2022-01-09 01:28] LABS: Basophils # 0.1 K/mcL (0.0-0.2); Basophils % 0.4 %; Eosinophils # 0.2 K/mcL (0.0-0.6); Hematocrit 24.4 % (37.5-50.1); Hemoglobin 7.4 g/dL (12.9-16.9); Immature Granulocytes % 1.3 % (0-4); Lymphocytes # 1.2 K/mcL (0.6-4.6); Mean Corpuscular HGB Conc 30.3 g/dL (31.6-35.5); Mean Corpuscular Hemoglobin 25.9 pg (28.0-33.3); Mean Corpuscular Volume 85.3 fL (83.0-100.0); Mean Platelet Volume 10.6 fL (9.4-12.4); Neutrophils # 9.4 K/mcL (1.6-8.9); Platelet Count 100 K/mcL (140-400); Red Blood Count 2.86 M/mcL (4.19-5.50); Red Cell Distribution Width 22.5 % (11.5-14.5); Segmented Neutrophils % 78.3 %; White Blood Count 11.9 K/mcL (4.3-11.1)
[2022-01-09 02:01] LABS: BUN/Creatinine Ratio 20 (6-26); Blood Urea Nitrogen 25 mg/dL (8-23); Carbon Dioxide 26 mEq/L (23-29); Chloride 103 mEq/L (98-107); Glucose 214 mg/dL (70-105); Magnesium 1.8 mg/dL (1.6-2.6); Osmolality,Calculated 295 (280-300); Potassium 3.9 mEq/L (3.5-5.1); Sodium 137 mEq/L (136-145); Troponin I < 0.03 ng/mL (< 0.04); eGFR For African Americans > 60 (> 60); eGFR For Non-African Americans 55 (> 60)
[2022-01-09 04:55] LABS: A.calcoaceticus-baumannii cplx Not Detected (Not Detect); Bacteroides fragilis by PCR Not Detected (Not Detect); CTX-M ESBL Gene Not Detected (Not Detect); Candida albicans by PCR Not Detected (Not Detect); Candida auris by PCR Not Detected (Not Detect); Candida glabrata by PCR Not Detected (Not Detect); Candida krusei by PCR Not Detected (Not Detect); Candida parapsilosis by PCR Not Detected (Not Detect); Candida tropicalis by PCR Not Detected (Not Detect); Enterobacter cloacae Cmplx PCR Not Detected (Not Detect); Enterobacterales by PCR Not Detected (Not Detect); Enterococcus faecalis by PCR Not Detected (Not Detect); Enterococcus faecium by PCR Not Detected (Not Detect); Escherichia coli by PCR Not Detected (Not Detect); IMP Carbapenem-Resist Gene Not Detected (Not Detect); Klebs. pneumoniae group by PCR Not Detected (Not Detect); Klebsiella aerogenes by PCR Not Detected (Not Detect); Klebsiella oxytoca by PCR Not Detected (Not Detect); NDM Carbapenem-Resist Gene Not Detected (Not Detect); OXA-48-like Carbap-Resist Gene Not Detected (Not Detect); Proteus by PCR Not Detected (Not Detect); Pseudomonas aeruginosa by PCR Not Detected (Not Detect); Salmonella species by PCR Not Detected (Not Detect); Serratia marcescens by PCR Not Detected (Not Detect); Staph epidermidis by PCR Not Detected (Not Detect); Staph lugdunensis by PCR Not Detected (Not Detect); Staphylococcus aureus by PCR DETECTED (Not Detect); Stenotrophomonas maltophilia Not Detected (Not Detect); Streptococcus agalactiae(B)PCR Not Detected (Not Detect); Streptococcus by PCR Not Detected (Not Detect); Streptococcus pneumoniae PCR Not Detected (Not Detect); Streptococcus pyogenes (A) PCR Not Detected (Not Detect); VIM Carbapenem-Resist Gene Not Detected (Not Detect); blaKPC Carbapenem-Resist Gene Not Detected (Not Detect); mcr-1 Colistin-Resist Gene Not Detected (Not Detect); mecA/C & MREJ (MRSA) Gene DETECTED (Not Detect); mecA/C Methicillin-Resist Gene Not Detected (Not Detect); vanA/B Vancomycin-Resist Genes Not Detected (Not Detect)
[2022-01-09 04:56] LABS: Crypto. neoformans/gattii PCR Not Detected (Not Detect)
[2022-01-09] MEDS: Piperacillin/Tazobactam 3.375 GM in 0.9 % Sodium Chloride Mini Bag 100 ML IVPB SCH ×2 (05:11→12:35)
[2022-01-09] MEDS ORDERED: Vancomycin 1,500 MG/265 ML IV.SOLN IVPB ONE (06:06)
[2022-01-09] MEDS: Aspirin 81 MG TAB.CHEW PO SCH (07:44)
[2022-01-09] MEDS: Sucralfate 1 GM TABLET PO SCH ×4 (07:44→21:23)
[2022-01-09] MEDS: Multivit/Ca/Min/Fe/FA 1 TAB TABLET PO SCH (07:45)
[2022-01-09] MEDS: Lactulose Oral Soln 20 GM/30 ML UDC PO SCH ×2 (07:45→20:02)
[2022-01-09] MEDS: Loratadine 10 MG TABLET PO SCH (07:45)
[2022-01-09] MEDS: cloNIDine HCL 0.1 MG TABLET PO SCH ×2 (07:45→20:00)
[2022-01-09] MEDS: Gabapentin 300 MG CAPSULE PO SCH ×3 (07:47→20:02)
[2022-01-09] MEDS ORDERED: Acetaminophen 325 MG TABLET PO ONE (09:05)
[2022-01-09] MEDS ORDERED: Perflutren Lipid Microsphere 1.3 ML in 0.9 % Sodium Chloride 8.7 ML IVP PRN (13:02)
[2022-01-09] MEDS ORDERED: Ibuprofen 600 MG TABLET PO PRN (13:11)
[2022-01-09] MEDS: cefTRIAXone 2,000 MG in 0.9 % Sodium Chloride 20 ML IVP SCH (13:52)
[2022-01-09 15:10] LABS: Adenovirus Not Detected (Not Detect); Bordetella Pertussis Not Detected (Not Detect); Chlamydophila pneumoniae Not Detected (Not Detect); Coronavirus 229E Not Detected (Not Detect); Coronavirus HKU1 Not Detected (Not Detect); Coronavirus NL63 Not Detected (Not Detect); Coronavirus OC43 Not Detected (Not Detect); Human Metapneumovirus Not Detected (Not Detect); Human Rhinovirus/Enterovirus Not Detected (Not Detect); Influenza A Subtype 2009 H1 Not Detected (Not Detect); Influenza B Not Detected (Not Detect); Mycoplasma pneumoniae Not Detected (Not Detect); Parainfluenza Virus 1 Not Detected (Not Detect); Parainfluenza Virus 2 Not Detected (Not Detect); Parainfluenza Virus 3 Not Detected (Not Detect); Parainfluenza Virus 4 Not Detected (Not Detect); Respiratory Syncytial Virus Not Detected (Not Detect); SARS-CoV-2 Not Detected (Not Detect)
[2022-01-10 03:28] LABS: Basophils # 0.1 K/mcL (0.0-0.2); Basophils % 0.5 %; Eosinophils # 0.4 K/mcL (0.0-0.6); Eosinophils % 3.9 %; Hematocrit 24.4 % (37.5-50.1); Hemoglobin 7.2 g/dL (12.9-16.9); Immature Granulocytes % 1.8 % (0-4); Lymphocytes # 1.1 K/mcL (0.6-4.6); Lymphocytes % 11.8 %; Mean Corpuscular HGB Conc 29.5 g/dL (31.6-35.5); Mean Corpuscular Hemoglobin 25.4 pg (28.0-33.3); Mean Corpuscular Volume 86.2 fL (83.0-100.0); Mean Platelet Volume 11.3 fL (9.4-12.4); Monocytes # 0.7 K/mcL (0.0-1.3); Monocytes % 7.8 %; Neutrophils # 6.8 K/mcL (1.6-8.9); Platelet Count 115 K/mcL (140-400); Red Blood Count 2.83 M/mcL (4.19-5.50); Red Cell Distribution Width 22.9 % (11.5-14.5); Segmented Neutrophils % 74.2 %; White Blood Count 9.1 K/mcL (4.3-11.1)
[2022-01-10 03:42] LABS: Magnesium 1.9 mg/dL (1.6-2.6); Potassium 3.6 mEq/L (3.5-5.1)
[2022-01-10 05:09] LABS: Hepatitis B Surface Antigen Nonreactive (Nonreactive)
[2022-01-10 05:38] LABS: Hepatitis C Virus Antibody Nonreactive (Nonreactive)
[2022-01-10 05:39] LABS: Hepatitis A Antibody IgM Nonreactive (Nonreactive)
[2022-01-10] MEDS: Vancomycin 1,250 MG/262.5 ML IV.SOLN IVPB SCH (06:35)
[2022-01-10] MEDS: Insulin LISPRO 300 UNITS/3 ML VIAL SUBQ SCH ×4 (06:36→23:52)
[2022-01-10] MEDS ORDERED: Iron Sucrose Complex 200 MG in 0.9 % Sodium Chloride 100 ML IVPB ONE (07:18)
[2022-01-10] MEDS: Multivit/Ca/Min/Fe/FA 1 TAB TABLET PO SCH (08:00)
[2022-01-10] MEDS: Sucralfate 1 GM TABLET PO SCH ×4 (08:00→20:17)
[2022-01-10] MEDS: Loratadine 10 MG TABLET PO SCH (08:00)
[2022-01-10] MEDS: cloNIDine HCL 0.1 MG TABLET PO SCH ×2 (08:00→20:17)
[2022-01-10] MEDS: Aspirin 81 MG TAB.CHEW PO SCH (08:00)
[2022-01-10] MEDS: Lactulose Oral Soln 20 GM/30 ML UDC PO SCH ×2 (08:00→21:24)
[2022-01-10] MEDS: Gabapentin 300 MG CAPSULE PO SCH ×3 (08:01→20:16)
[2022-01-10] MEDS: cefTRIAXone 2,000 MG in 0.9 % Sodium Chloride 20 ML IVP SCH (13:24)
[2022-01-10] MEDS: *HR* OxyCODONE/APAP 7.5/325 TABLET PO PRN (18:13)
[2022-01-11 01:11] LABS: Basophils % 0.4 %; Eosinophils # 0.4 K/mcL (0.0-0.6); Eosinophils % 5.2 %; Hematocrit 24.9 % (37.5-50.1); Hemoglobin 7.3 g/dL (12.9-16.9); Immature Granulocytes % 1.6 % (0-4); Lymphocytes % 12.4 %; Mean Corpuscular HGB Conc 29.3 g/dL (31.6-35.5); Mean Corpuscular Hemoglobin 25.8 pg (28.0-33.3); Mean Platelet Volume 11.1 fL (9.4-12.4); Monocytes # 0.7 K/mcL (0.0-1.3); Monocytes % 8.6 %; Neutrophils # 5.5 K/mcL (1.6-8.9); Platelet Count 117 K/mcL (140-400); Red Blood Count 2.83 M/mcL (4.19-5.50); Red Cell Distribution Width 23.1 % (11.5-14.5); Segmented Neutrophils % 71.8 %; White Blood Count 7.7 K/mcL (4.3-11.1)
[2022-01-11 01:30] LABS: BUN/Creatinine Ratio 15 (6-26); Blood Urea Nitrogen 18 mg/dL (8-23); Calcium 8.1 mg/dL (8.6-10.3); Carbon Dioxide 24 mEq/L (23-29); Chloride 105 mEq/L (98-107); Glucose 172 mg/dL (70-105); Magnesium 1.9 mg/dL (1.6-2.6); Osmolality,Calculated 290 (280-300); Potassium 3.6 mEq/L (3.5-5.1); Sodium 137 mEq/L (136-145); eGFR For African Americans > 60 (> 60); eGFR For Non-African Americans > 60 (> 60)
[2022-01-11 01:37] LABS: Platelet Estimate Decreased (Normal)
[2022-01-11 01:38] LABS: Anisocytosis 1+ (Not Present)
[2022-01-11] MEDS: Insulin LISPRO 300 UNITS/3 ML VIAL SUBQ SCH ×3 (06:52→18:14)
[2022-01-11] MEDS ORDERED: Vancomycin 1,500 MG/265 ML IV.SOLN IVPB SCH (08:00)
[2022-01-11] MEDS ORDERED: Vancomycin 1,250 MG/262.5 ML IV.SOLN IVPB ONE (09:00)
[2022-01-11] MEDS ORDERED: Vancomycin 1,500 MG/265 ML IV.SOLN IVPB ONE (09:00)
[2022-01-11] MEDS ORDERED: *HR* Midazolam HCl 5 MG/5 ML VIAL IVP PRN (10:19)
[2022-01-11] MEDS ORDERED: *HR* FentaNYL (PF) 100 MCG/2 ML VIAL IVP PRN (10:19)
[2022-01-11] MEDS ORDERED: 0.9 % Sodium Chloride 500 ML IVC ONE (10:19)
[2022-01-11] MEDS ORDERED: Lidocaine Viscous Oral Soln 15 ML SOLUTION MM PRN (10:24)
[2022-01-11] MEDS: Sucralfate 1 GM TABLET PO SCH ×4 (13:22→21:56)
[2022-01-11] MEDS: Gabapentin 300 MG CAPSULE PO SCH ×3 (13:22→21:55)
[2022-01-11] MEDS: *HR* OxyCODONE/APAP 7.5/325 TABLET PO PRN (14:49)
[2022-01-11] MEDS: Multivit/Ca/Min/Fe/FA 1 TAB TABLET PO SCH (14:49)
[2022-01-11] MEDS: cloNIDine HCL 0.1 MG TABLET PO SCH ×2 (14:49→21:52)
[2022-01-11] MEDS: Loratadine 10 MG TABLET PO SCH (14:49)
[2022-01-11] MEDS: cefTRIAXone 2,000 MG in 0.9 % Sodium Chloride 20 ML IVP SCH (14:50)
[2022-01-11] MEDS: Lactulose Oral Soln 20 GM/30 ML UDC PO SCH ×2 (15:00→21:53)
[2022-01-11] MEDS: Aspirin 81 MG TAB.CHEW PO SCH (15:00)
[2022-01-11] MEDS: Vancomycin 1,250 MG/262.5 ML IV.SOLN IVPB SCH (21:35)
[2022-01-12] MEDS: Insulin LISPRO 300 UNITS/3 ML VIAL SUBQ SCH ×4 (02:02→17:05)
[2022-01-12 05:36] LABS: Basophils # 0.1 K/mcL (0.0-0.2); Basophils % 0.8 %; Eosinophils # 0.3 K/mcL (0.0-0.6); Eosinophils % 4.8 %; Hematocrit 25.2 % (37.5-50.1); Hemoglobin 7.5 g/dL (12.9-16.9); Immature Granulocytes % 1.1 % (0-4); Lymphocytes % 13.7 %; Mean Corpuscular HGB Conc 29.8 g/dL (31.6-35.5); Mean Corpuscular Hemoglobin 25.8 pg (28.0-33.3); Mean Corpuscular Volume 86.6 fL (83.0-100.0); Monocytes # 0.5 K/mcL (0.0-1.3); Monocytes % 7.1 %; Neutrophils # 5.2 K/mcL (1.6-8.9); Platelet Count 118 K/mcL (140-400); Red Blood Count 2.91 M/mcL (4.19-5.50); Red Cell Distribution Width 22.5 % (11.5-14.5); Segmented Neutrophils % 72.5 %; White Blood Count 7.1 K/mcL (4.3-11.1)
[2022-01-12 06:03] LABS: BUN/Creatinine Ratio 14 (6-26); Blood Urea Nitrogen 14 mg/dL (8-23); Carbon Dioxide 25 mEq/L (23-29); Chloride 103 mEq/L (98-107); Glucose 191 mg/dL (70-105); Magnesium 1.8 mg/dL (1.6-2.6); Osmolality,Calculated 290 (280-300); Sodium 137 mEq/L (136-145); eGFR For African Americans > 60 (> 60); eGFR For Non-African Americans > 60 (> 60)
[2022-01-12] MEDS: Sucralfate 1 GM TABLET PO SCH ×4 (08:32→20:57)
[2022-01-12] MEDS: Aspirin 81 MG TAB.CHEW PO SCH (08:33)
[2022-01-12] MEDS: Loratadine 10 MG TABLET PO SCH (08:34)
[2022-01-12] MEDS: Multivit/Ca/Min/Fe/FA 1 TAB TABLET PO SCH (08:34)
[2022-01-12] MEDS: Gabapentin 300 MG CAPSULE PO SCH ×5 (08:34→21:00)
[2022-01-12] MEDS: cloNIDine HCL 0.1 MG TABLET PO SCH ×2 (08:34→20:57)
[2022-01-12] MEDS: Lactulose Oral Soln 20 GM/30 ML UDC PO SCH ×2 (08:35→21:00)
[2022-01-12] MEDS ORDERED: Lidocaine -MPF 1% 5 ML AMPUL INFILT ONE (13:45)
[2022-01-12] MEDS: cefTRIAXone 2,000 MG in 0.9 % Sodium Chloride 20 ML IVP SCH (14:23)
[2022-01-13] MEDS: Insulin LISPRO 300 UNITS/3 ML VIAL SUBQ SCH ×5 (00:44→23:56)
[2022-01-13 02:40] LABS: Basophils # 0.1 K/mcL (0.0-0.2); Basophils % 0.6 %; Hemoglobin 7.4 g/dL (12.9-16.9); Red Cell Distribution Width 22.5 % (11.5-14.5); White Blood Count 7.7 K/mcL (4.3-11.1)
[2022-01-13 02:42] LABS: Eosinophils # 0.4 K/mcL (0.0-0.6); Eosinophils % 4.9 %; Hematocrit 24.8 % (37.5-50.1); Immature Granulocytes % 1.4 % (0-4); Lymphocytes # 1.2 K/mcL (0.6-4.6); Lymphocytes % 15.5 %; Mean Corpuscular HGB Conc 29.8 g/dL (31.6-35.5); Mean Corpuscular Hemoglobin 26.1 pg (28.0-33.3); Mean Corpuscular Volume 87.6 fL (83.0-100.0); Mean Platelet Volume 10.9 fL (9.4-12.4); Monocytes # 0.5 K/mcL (0.0-1.3); Monocytes % 6.9 %; Platelet Count 123 K/mcL (140-400); Red Blood Count 2.83 M/mcL (4.19-5.50); Segmented Neutrophils % 70.7 %
[2022-01-13 02:43] LABS: BUN/Creatinine Ratio 13 (6-26); Blood Urea Nitrogen 14 mg/dL (8-23); Calcium 8.1 mg/dL (8.6-10.3); Carbon Dioxide 25 mEq/L (23-29); Chloride 106 mEq/L (98-107); Glucose 165 mg/dL (70-105); Magnesium 1.8 mg/dL (1.6-2.6); Osmolality,Calculated 290 (280-300); Potassium 3.7 mEq/L (3.5-5.1); Sodium 138 mEq/L (136-145); eGFR For African Americans > 60 (> 60); eGFR For Non-African Americans > 60 (> 60)
[2022-01-13 02:53] LABS: Neutrophils # 5.4 K/mcL (1.6-8.9)
[2022-01-13 03:45] LABS: Hypochromasia Present (Not Present); Platelet Estimate Normal (Normal)
[2022-01-13] MEDS: Sucralfate 1 GM TABLET PO SCH ×4 (06:26→20:24)
[2022-01-13] MEDS: cloNIDine HCL 0.1 MG TABLET PO SCH ×2 (07:32→20:24)
[2022-01-13] MEDS: Multivit/Ca/Min/Fe/FA 1 TAB TABLET PO SCH (07:32)
[2022-01-13] MEDS: Loratadine 10 MG TABLET PO SCH (07:32)
[2022-01-13] MEDS: Aspirin 81 MG TAB.CHEW PO SCH (09:47)
[2022-01-13] MEDS: Lactulose Oral Soln 20 GM/30 ML UDC PO SCH ×2 (09:47→20:45)
[2022-01-13] MEDS: Gabapentin 300 MG CAPSULE PO SCH ×3 (09:48→20:24)
[2022-01-13] MEDS: cefTRIAXone 2,000 MG in 0.9 % Sodium Chloride 20 ML IVP SCH (13:16)
[2022-01-13] MEDS: *HR* OxyCODONE/APAP 7.5/325 TABLET PO PRN ×2 (15:08→21:57)
[2022-01-14 04:40] LABS: Lymphocytes % 17.2 %; Segmented Neutrophils % 69.6 %
[2022-01-14 04:42] LABS: Basophils # 0.1 K/mcL (0.0-0.2); Basophils % 0.8 %; Eosinophils # 0.4 K/mcL (0.0-0.6); Eosinophils % 4.6 %; Hematocrit 25.9 % (37.5-50.1); Hemoglobin 7.7 g/dL (12.9-16.9); Immature Granulocytes % 1.7 % (0-4); Lymphocytes # 1.3 K/mcL (0.6-4.6); Mean Corpuscular HGB Conc 29.7 g/dL (31.6-35.5); Mean Corpuscular Hemoglobin 25.9 pg (28.0-33.3); Mean Corpuscular Volume 87.2 fL (83.0-100.0); Mean Platelet Volume 10.8 fL (9.4-12.4); Monocytes # 0.5 K/mcL (0.0-1.3); Monocytes % 6.1 %; Neutrophils # 5.3 K/mcL (1.6-8.9); Platelet Count 119 K/mcL (140-400); Red Blood Count 2.97 M/mcL (4.19-5.50); Red Cell Distribution Width 22.1 % (11.5-14.5); White Blood Count 7.6 K/mcL (4.3-11.1)
[2022-01-14 04:44] LABS: Platelet Estimate Slight Decrease (Normal)
[2022-01-14 04:48] LABS: BUN/Creatinine Ratio 12 (6-26); Blood Urea Nitrogen 12 mg/dL (8-23); Calcium 8.2 mg/dL (8.6-10.3); Carbon Dioxide 27 mEq/L (23-29); Chloride 107 mEq/L (98-107); Glucose 188 mg/dL (70-105); Magnesium 1.7 mg/dL (1.6-2.6); Osmolality,Calculated 293 (280-300); Sodium 139 mEq/L (136-145); eGFR For African Americans > 60 (> 60); eGFR For Non-African Americans > 60 (> 60)
[2022-01-14] MEDS: *HR* OxyCODONE/APAP 7.5/325 TABLET PO PRN (05:35)
[2022-01-14] MEDS: Insulin LISPRO 300 UNITS/3 ML VIAL SUBQ SCH ×3 (05:39→18:50)
[2022-01-14] MEDS: Sucralfate 1 GM TABLET PO SCH ×4 (05:41→19:58)
[2022-01-14 06:22] LABS: Adenovirus Not Detected (Not Detect); Bordetella Pertussis Not Detected (Not Detect); Chlamydophila pneumoniae Not Detected (Not Detect); Coronavirus 229E Not Detected (Not Detect); Coronavirus HKU1 Not Detected (Not Detect); Coronavirus NL63 Not Detected (Not Detect); Coronavirus OC43 Not Detected (Not Detect); Human Metapneumovirus Not Detected (Not Detect); Human Rhinovirus/Enterovirus Not Detected (Not Detect); Influenza A Subtype 2009 H1 Not Detected (Not Detect); Influenza B Not Detected (Not Detect); Mycoplasma pneumoniae Not Detected (Not Detect); Parainfluenza Virus 1 Not Detected (Not Detect); Parainfluenza Virus 2 Not Detected (Not Detect); Parainfluenza Virus 3 Not Detected (Not Detect); Parainfluenza Virus 4 Not Detected (Not Detect); Respiratory Syncytial Virus Not Detected (Not Detect); SARS-CoV-2 Not Detected (Not Detect)
[2022-01-14] MEDS: cloNIDine HCL 0.1 MG TABLET PO SCH ×2 (08:49→19:57)
[2022-01-14] MEDS: Aspirin 81 MG TAB.CHEW PO SCH (08:49)
[2022-01-14] MEDS: Loratadine 10 MG TABLET PO SCH (08:49)
[2022-01-14] MEDS: Gabapentin 300 MG CAPSULE PO SCH ×3 (08:49→19:58)
[2022-01-14] MEDS: Multivit/Ca/Min/Fe/FA 1 TAB TABLET PO SCH (08:49)
[2022-01-14] MEDS: Lactulose Oral Soln 20 GM/30 ML UDC PO SCH ×3 (08:50→19:58)
[2022-01-14] MEDS: cefTRIAXone 2,000 MG in 0.9 % Sodium Chloride 20 ML IVP SCH (15:48)
[2022-01-15] MEDS: Insulin LISPRO 300 UNITS/3 ML VIAL SUBQ SCH ×5 (00:20→23:45)
[2022-01-15 03:25] LABS: Albumin 2.9 g/dL (3.5-5.7); Albumin/Globulin Ratio 0.9 (1.1-2.2); Bilirubin,Direct 0.1 mg/dL (0.0-0.2); Bilirubin,Indirect 0.2 mg/dL (0.0-1.0); Bilirubin,Total 0.3 mg/dL (0.3-1.0); Globulin 3.4 g/dL (2.4-3.5); Total Protein 6.3 g/dL (6.4-8.9)
[2022-01-15] MEDS: Loratadine 10 MG TABLET PO SCH (08:06)
[2022-01-15] MEDS: Aspirin 81 MG TAB.CHEW PO SCH (08:06)
[2022-01-15] MEDS: Gabapentin 300 MG CAPSULE PO SCH ×4 (08:06→20:28)
[2022-01-15] MEDS: Sucralfate 1 GM TABLET PO SCH ×4 (08:06→20:36)
[2022-01-15] MEDS: cloNIDine HCL 0.1 MG TABLET PO SCH ×3 (08:07→20:35)
[2022-01-15] MEDS: Lactulose Oral Soln 20 GM/30 ML UDC PO SCH ×2 (08:07→20:28)
[2022-01-15] MEDS: Multivit/Ca/Min/Fe/FA 1 TAB TABLET PO SCH (08:07)
[2022-01-16] MEDS: Insulin LISPRO 300 UNITS/3 ML VIAL SUBQ SCH ×3 (06:21→17:14)
[2022-01-16] MEDS: Multivit/Ca/Min/Fe/FA 1 TAB TABLET PO SCH (09:51)
[2022-01-16] MEDS: Sucralfate 1 GM TABLET PO SCH ×4 (09:51→21:04)
[2022-01-16] MEDS: Gabapentin 300 MG CAPSULE PO SCH ×3 (09:51→21:05)
[2022-01-16] MEDS: Loratadine 10 MG TABLET PO SCH (09:51)
[2022-01-16] MEDS: cloNIDine HCL 0.1 MG TABLET PO SCH ×3 (09:51→21:05)
[2022-01-16] MEDS: Aspirin 81 MG TAB.CHEW PO SCH (09:51)
[2022-01-16] MEDS: Lactulose Oral Soln 20 GM/30 ML UDC PO SCH ×3 (09:52→21:05)
[2022-01-16 18:53] LABS: Bilirubin,Urine Small (Negative); Blood,Urine Large (Negative); Clarity,Urine Turbid (Clear); Color,Urine Amber (Yellow); Glucose,Urine (UA) Normal (Normal); Ketones,Urine 15 mg/dL (Negative); Leukocyte Esterase,Urine Negative (Negative); Nitrite,Urine Negative (Negative); PH,Urine 5.5 pH Units (5.0-8.0); Protein,Urine >=300 mg/dL (Neg-Trace); Specific Gravity,Urine >= 1.030 (1.010-1.025); Urobilinogen,Urine Normal (Normal)
[2022-01-17 05:29] LABS: Monocytes % 7.1 %; Red Cell Distribution Width 21.2 % (11.5-14.5)
[2022-01-17 05:31] LABS: Basophils % 0.5 %; Eosinophils # 0.3 K/mcL (0.0-0.6); Hematocrit 24.8 % (37.5-50.1); Hemoglobin 7.4 g/dL (12.9-16.9); Immature Granulocytes % 1.1 % (0-4); Lymphocytes # 1.2 K/mcL (0.6-4.6); Lymphocytes % 16.7 %; Mean Corpuscular HGB Conc 29.8 g/dL (31.6-35.5); Mean Corpuscular Hemoglobin 26.1 pg (28.0-33.3); Mean Corpuscular Volume 87.6 fL (83.0-100.0); Mean Platelet Volume 10.4 fL (9.4-12.4); Monocytes # 0.5 K/mcL (0.0-1.3); Neutrophils # 5.2 K/mcL (1.6-8.9); Platelet Count 115 K/mcL (140-400); Red Blood Count 2.83 M/mcL (4.19-5.50); Segmented Neutrophils % 70.6 %; White Blood Count 7.3 K/mcL (4.3-11.1)
[2022-01-17 05:34] LABS: INR 1.2; Prothrombin Time 13.8 Seconds (9.4-12.1)
[2022-01-17 05:48] LABS: Albumin 2.6 g/dL (3.5-5.7); Albumin/Globulin Ratio 0.7 (1.1-2.2); Bilirubin,Total 0.3 mg/dL (0.3-1.0); Calcium 8.2 mg/dL (8.6-10.3); Globulin 3.6 g/dL (2.4-3.5); Potassium 4.2 mEq/L (3.5-5.1); Total Protein 6.2 g/dL (6.4-8.9)
[2022-01-17] MEDS: Insulin LISPRO 300 UNITS/3 ML VIAL SUBQ SCH ×3 (07:57→16:11)
[2022-01-17] MEDS: Sucralfate 1 GM TABLET PO SCH ×4 (07:57→20:31)
[2022-01-17] MEDS: Lactulose Oral Soln 20 GM/30 ML UDC PO SCH ×3 (08:15→22:38)
[2022-01-17] MEDS: cloNIDine HCL 0.1 MG TABLET PO SCH ×3 (08:21→20:30)
[2022-01-17] MEDS: Multivit/Ca/Min/Fe/FA 1 TAB TABLET PO SCH (08:24)
[2022-01-17] MEDS: Gabapentin 300 MG CAPSULE PO SCH ×4 (08:24→22:38)
[2022-01-17] MEDS: Aspirin 81 MG TAB.CHEW PO SCH (08:24)
[2022-01-17] MEDS: Loratadine 10 MG TABLET PO SCH (08:24)
[2022-01-17] MEDS ORDERED: 0.9 % Sodium Chloride 500 ML IVC SCH (08:30)
[2022-01-17] MEDS ORDERED: Insulin DETEMIR 100 UNIT/ML X5UNITS SUBQ SCH (09:00)
[2022-01-17] MEDS ORDERED: Patient Taking Own Medication 1 EACH IT PRN (11:30)
[2022-01-18 01:36] LABS: Basophils % 0.8 %; Eosinophils % 4.5 %; Red Cell Distribution Width 21.2 % (11.5-14.5)
[2022-01-18 01:38] LABS: Basophils # 0.1 K/mcL (0.0-0.2); Eosinophils # 0.3 K/mcL (0.0-0.6); Hematocrit 26.1 % (37.5-50.1); Hemoglobin 7.8 g/dL (12.9-16.9); Immature Granulocytes % 0.9 % (0-4); Lymphocytes % 15.6 %; Mean Corpuscular HGB Conc 29.9 g/dL (31.6-35.5); Mean Corpuscular Hemoglobin 26.1 pg (28.0-33.3); Mean Corpuscular Volume 87.3 fL (83.0-100.0); Monocytes # 0.5 K/mcL (0.0-1.3); Monocytes % 7.4 %; Neutrophils # 4.6 K/mcL (1.6-8.9); Platelet Count 117 K/mcL (140-400); Red Blood Count 2.99 M/mcL (4.19-5.50); Segmented Neutrophils % 70.8 %; White Blood Count 6.5 K/mcL (4.3-11.1)
[2022-01-18 03:20] LABS: Albumin 2.7 g/dL (3.5-5.7); Albumin/Globulin Ratio 0.8 (1.1-2.2); Bilirubin,Total 0.3 mg/dL (0.3-1.0); Calcium 8.4 mg/dL (8.6-10.3); Globulin 3.6 g/dL (2.4-3.5); Potassium 4.4 mEq/L (3.5-5.1); Total Protein 6.3 g/dL (6.4-8.9)
[2022-01-18] MEDS: Gabapentin 300 MG CAPSULE PO SCH ×2 (10:54→20:48)
[2022-01-18] MEDS: Sucralfate 1 GM TABLET PO SCH ×4 (10:54→20:48)
[2022-01-18] MEDS: Loratadine 10 MG TABLET PO SCH (10:54)
[2022-01-18] MEDS: amLODIPine 5 MG TABLET PO SCH (10:55)
[2022-01-18] MEDS: Aspirin 81 MG TAB.CHEW PO SCH (10:55)
[2022-01-18] MEDS: cloNIDine HCL 0.1 MG TABLET PO SCH ×3 (10:55→20:48)
[2022-01-18] MEDS: Lactulose Oral Soln 20 GM/30 ML UDC PO SCH ×2 (10:55→20:48)
[2022-01-18] MEDS: Multivit/Ca/Min/Fe/FA 1 TAB TABLET PO SCH (10:55)
[2022-01-18] MEDS: Insulin LISPRO 300 UNITS/3 ML VIAL SUBQ SCH ×3 (10:56→18:50)
[2022-01-18 17:15] LABS: Uric Acid 9.6 mg/dL (2.3-7.6)
[2022-01-18 17:48] LABS: Bilirubin,Urine Negative (Negative); Blood,Urine Large (Negative); Clarity,Urine Ex.Turbid (Clear); Color,Urine Yellow (Yellow); Glucose,Urine (UA) 30 mg/dL (Normal); Ketones,Urine Negative (Negative); Leukocyte Esterase,Urine Negative (Negative); Nitrite,Urine Negative (Negative); PH,Urine 5.5 pH Units (5.0-8.0); Protein,Urine >=300 mg/dL (Neg-Trace); Specific Gravity,Urine 1.024 (1.010-1.025); Urobilinogen,Urine Normal (Normal)
[2022-01-18 17:50] LABS: RBC,Urine TNTC per hpf (0-3); WBC,Urine TNTC per hpf (0-3)
[2022-01-18 17:52] LABS: Bacteria,Urine Many per hpf (None-Few); Mucus,Urine Moderate per lpf (None-Few); Squamous Epithelial Cell,Urine Few per hpf (None-Few)
[2022-01-19 05:19] LABS: Basophils # 0.1 K/mcL (0.0-0.2); Basophils % 0.8 %; Eosinophils # 0.3 K/mcL (0.0-0.6); Eosinophils % 4.3 %; Hematocrit 25.5 % (37.5-50.1); Hemoglobin 7.5 g/dL (12.9-16.9); Lymphocytes # 1.2 K/mcL (0.6-4.6); Lymphocytes % 15.2 %; Mean Corpuscular HGB Conc 29.4 g/dL (31.6-35.5); Mean Corpuscular Volume 88.5 fL (83.0-100.0); Mean Platelet Volume 10.5 fL (9.4-12.4); Monocytes # 0.5 K/mcL (0.0-1.3); Monocytes % 6.6 %; Neutrophils # 5.5 K/mcL (1.6-8.9); Platelet Count 125 K/mcL (140-400); Red Blood Count 2.88 M/mcL (4.19-5.50); Red Cell Distribution Width 21.1 % (11.5-14.5); Segmented Neutrophils % 72.1 %; White Blood Count 7.6 K/mcL (4.3-11.1)
[2022-01-19 05:30] LABS: Potassium 4.9 mEq/L (3.5-5.1)
[2022-01-19] MEDS: Loratadine 10 MG TABLET PO SCH (09:00)
[2022-01-19] MEDS: Multivit/Ca/Min/Fe/FA 1 TAB TABLET PO SCH (09:01)
[2022-01-19] MEDS: Aspirin 81 MG TAB.CHEW PO SCH (09:01)
[2022-01-19] MEDS: Gabapentin 300 MG CAPSULE PO SCH ×2 (09:01→20:57)
[2022-01-19] MEDS: cloNIDine HCL 0.1 MG TABLET PO SCH ×3 (09:01→20:58)
[2022-01-19] MEDS: amLODIPine 5 MG TABLET PO SCH (09:01)
[2022-01-19] MEDS: Sucralfate 1 GM TABLET PO SCH ×4 (09:01→20:57)
[2022-01-19] MEDS: Lactulose Oral Soln 20 GM/30 ML UDC PO SCH ×2 (09:02→20:57)
[2022-01-19] MEDS: Insulin LISPRO 300 UNITS/3 ML VIAL SUBQ SCH ×3 (09:02→17:31)
[2022-01-19] MEDS: Albumin 25% 25gram/100mL 25 GM/100 ML IV.SOLN IVPB SCH ×2 (12:51→20:58)
[2022-01-19] MEDS: Insulin DETEMIR 100 UNIT/ML X5UNITS SUBQ SCH (21:14)
[2022-01-20 02:48] LABS: Basophils # 0.1 K/mcL (0.0-0.2); Basophils % 0.7 %; Eosinophils # 0.3 K/mcL (0.0-0.6); Eosinophils % 3.3 %; Hematocrit 24.1 % (37.5-50.1); Lymphocytes # 1.4 K/mcL (0.6-4.6); Lymphocytes % 17.4 %; Mean Corpuscular Hemoglobin 25.5 pg (28.0-33.3); Mean Corpuscular Volume 87.6 fL (83.0-100.0); Mean Platelet Volume 9.7 fL (9.4-12.4); Monocytes # 0.6 K/mcL (0.0-1.3); Monocytes % 7.4 %; Neutrophils # 5.7 K/mcL (1.6-8.9); Platelet Count 123 K/mcL (140-400); Red Blood Count 2.75 M/mcL (4.19-5.50); Segmented Neutrophils % 70.2 %; White Blood Count 8.1 K/mcL (4.3-11.1)
[2022-01-20 03:09] LABS: Albumin 3.1 g/dL (3.5-5.7); Albumin/Globulin Ratio 0.9 (1.1-2.2); Bilirubin,Total 0.3 mg/dL (0.3-1.0); Calcium 7.8 mg/dL (8.6-10.3); Globulin 3.3 g/dL (2.4-3.5); Potassium 5.2 mEq/L (3.5-5.1); Total Protein 6.4 g/dL (6.4-8.9)
[2022-01-20 03:11] LABS: Sodium, Urine 14.3 mEq/L
[2022-01-20 03:28] LABS: Protein/Creatinine Ratio,Urine 0.49 mg/mg (0.00-0.20)
[2022-01-20] MEDS: Albumin 25% 25gram/100mL 25 GM/100 ML IV.SOLN IVPB SCH (04:19)
[2022-01-20] MEDS: Insulin LISPRO 300 UNITS/3 ML VIAL SUBQ SCH ×3 (09:25→18:31)
[2022-01-20] MEDS: Gabapentin 300 MG CAPSULE PO SCH ×2 (09:25→21:50)
[2022-01-20] MEDS: Lactulose Oral Soln 20 GM/30 ML UDC PO SCH ×3 (09:25→21:50)
[2022-01-20] MEDS: Sucralfate 1 GM TABLET PO SCH ×4 (10:18→21:39)
[2022-01-20] MEDS: amLODIPine 5 MG TABLET PO SCH (10:33)
[2022-01-20] MEDS: Aspirin 81 MG TAB.CHEW PO SCH (10:37)
[2022-01-20] MEDS: Loratadine 10 MG TABLET PO SCH (10:37)
[2022-01-20] MEDS: cloNIDine HCL 0.1 MG TABLET PO SCH ×3 (10:37→21:39)
[2022-01-20] MEDS: Multivit/Ca/Min/Fe/FA 1 TAB TABLET PO SCH (10:37)
[2022-01-20] MEDS ORDERED: Heparin 1,000 UNITS/500 mL 500 ML ONE (11:36)
[2022-01-20] MEDS ORDERED: Lidocaine/EPI 1:100k 1% 50 ML VIAL ONE (11:36)
[2022-01-20] MEDS ORDERED: *HR* Heparin 10,000 UNIT/10 ML VIAL IV PRN (11:55)
[2022-01-20] MEDS ORDERED: 0.9 % Sodium Chloride 250 ML IVC PRN (11:55)
[2022-01-20] MEDS ORDERED: 0.9 % Sodium Chloride 1,000 ML PRIME SCH (12:00)
[2022-01-20] MEDS ORDERED: *HR* Heparin 5,000 UNIT/ML VIAL ONE (12:47)
[2022-01-20 19:21] LABS: Hepatitis B Surface Antibody < 3.10 mIU/mL
[2022-01-20 19:33] LABS: Hepatitis B Surface Antigen Nonreactive (Nonreactive)
[2022-01-20] MEDS ORDERED: Lactulose Oral Soln 20 GM/30 ML UDC PO SCH (21:00)
[2022-01-20] MEDS: Insulin DETEMIR 100 UNIT/ML X5UNITS SUBQ SCH (21:40)
[2022-01-20] MEDS: DAPTOmycin 700 MG in 0.9 % Sodium Chloride 100 ML IVPB SCH (22:46)
[2022-01-21] MEDS: Lactulose Oral Soln 20 GM/30 ML UDC PO SCH ×2 (05:16→21:05)
[2022-01-21] MEDS ORDERED: *HR* Heparin 10,000 UNIT/10 ML VIAL IV PRN (07:21)
[2022-01-21] MEDS ORDERED: 0.9 % Sodium Chloride 250 ML IVC PRN (07:21)
[2022-01-21] MEDS ORDERED: 0.9 % Sodium Chloride 1,000 ML PRIME SCH (07:30)
[2022-01-21] MEDS: Multivit/Ca/Min/Fe/FA 1 TAB TABLET PO SCH (09:03)
[2022-01-21] MEDS: Loratadine 10 MG TABLET PO SCH (09:03)
[2022-01-21] MEDS: Aspirin 81 MG TAB.CHEW PO SCH (09:03)
[2022-01-21] MEDS: Insulin LISPRO 300 UNITS/3 ML VIAL SUBQ SCH ×3 (09:04→17:24)
[2022-01-21] MEDS: Gabapentin 300 MG CAPSULE PO SCH ×2 (09:04→21:13)
[2022-01-21] MEDS: Sucralfate 1 GM TABLET PO SCH ×4 (09:04→21:05)
[2022-01-21] MEDS: amLODIPine 5 MG TABLET PO SCH (09:21)
[2022-01-21] MEDS: cloNIDine HCL 0.1 MG TABLET PO SCH ×3 (09:21→21:05)
[2022-01-21] MEDS ORDERED: Albumin 25% 25gram/100mL 25 GM/100 ML IV.SOLN IVPB ONE (13:11)
[2022-01-21 14:02] LABS: Basophils % 0.5 %; Eosinophils # 0.3 K/mcL (0.0-0.6); Eosinophils % 3.8 %; Hemoglobin 6.6 g/dL (12.9-16.9); Immature Granulocytes % 0.9 % (0-4); Lymphocytes # 0.9 K/mcL (0.6-4.6); Lymphocytes % 13.6 %; Mean Corpuscular Hemoglobin 25.4 pg (28.0-33.3); Mean Corpuscular Volume 84.6 fL (83.0-100.0); Mean Platelet Volume 10.4 fL (9.4-12.4); Monocytes # 0.6 K/mcL (0.0-1.3); Monocytes % 9.5 %; Neutrophils # 4.8 K/mcL (1.6-8.9); Platelet Count 131 K/mcL (140-400); Red Cell Distribution Width 20.7 % (11.5-14.5); Segmented Neutrophils % 71.7 %; White Blood Count 6.6 K/mcL (4.3-11.1)
[2022-01-21 14:09] LABS: INR 1.2; Prothrombin Time 13.3 Seconds (9.4-12.1)
[2022-01-21 14:25] LABS: Calcium 7.8 mg/dL (8.6-10.3); Potassium 3.6 mEq/L (3.5-5.1)
[2022-01-21] MEDS ORDERED: 0.9 % Sodium Chloride 250 ML IVC SCH (15:15)
[2022-01-21] MEDS: Insulin DETEMIR 100 UNIT/ML X5UNITS SUBQ SCH (21:06)
[2022-01-22 05:00] LABS: Basophils # 0.1 K/mcL (0.0-0.2); Basophils % 0.7 %; Eosinophils # 0.2 K/mcL (0.0-0.6); Eosinophils % 3.4 %; Hematocrit 23.5 % (37.5-50.1); Hemoglobin 7.3 g/dL (12.9-16.9); Immature Granulocytes % 0.7 % (0-4); Lymphocytes % 14.9 %; Mean Corpuscular HGB Conc 31.1 g/dL (31.6-35.5); Mean Corpuscular Hemoglobin 26.3 pg (28.0-33.3); Mean Corpuscular Volume 84.5 fL (83.0-100.0); Mean Platelet Volume 9.8 fL (9.4-12.4); Monocytes # 0.6 K/mcL (0.0-1.3); Monocytes % 8.9 %; Neutrophils # 4.8 K/mcL (1.6-8.9); Platelet Count 118 K/mcL (140-400); Red Blood Count 2.78 M/mcL (4.19-5.50); Red Cell Distribution Width 19.9 % (11.5-14.5); Segmented Neutrophils % 71.4 %; White Blood Count 6.8 K/mcL (4.3-11.1)
[2022-01-22 05:19] LABS: Calcium 8.1 mg/dL (8.6-10.3); Potassium 4.1 mEq/L (3.5-5.1)
[2022-01-22] MEDS: Aspirin 81 MG TAB.CHEW PO SCH (08:14)
[2022-01-22] MEDS: Sucralfate 1 GM TABLET PO SCH ×4 (08:14→20:25)
[2022-01-22] MEDS: cloNIDine HCL 0.1 MG TABLET PO SCH ×3 (08:15→19:26)
[2022-01-22] MEDS: Loratadine 10 MG TABLET PO SCH (08:15)
[2022-01-22] MEDS: Multivit/Ca/Min/Fe/FA 1 TAB TABLET PO SCH (08:15)
[2022-01-22] MEDS: amLODIPine 5 MG TABLET PO SCH (08:15)
[2022-01-22] MEDS: Insulin LISPRO 300 UNITS/3 ML VIAL SUBQ SCH ×3 (08:16→15:59)
[2022-01-22] MEDS: Lactulose Oral Soln 20 GM/30 ML UDC PO SCH ×2 (08:21→19:26)
[2022-01-22] MEDS: Gabapentin 300 MG CAPSULE PO SCH ×2 (19:26→19:36)
[2022-01-22] MEDS: DAPTOmycin 700 MG in 0.9 % Sodium Chloride 100 ML IVPB SCH (19:26)
[2022-01-22] MEDS: Insulin DETEMIR 100 UNIT/ML X5UNITS SUBQ SCH (20:25)
[2022-01-23 02:40] LABS: Bacteria,Urine Few per hpf (None-Few); Bilirubin,Urine Small (Negative); Blood,Urine Large (Negative); Budding Yeast,Urine Few per hpf (None Seen); Clarity,Urine Ex.Turbid (Clear); Color,Urine Dark-Yellow (Yellow); Glucose,Urine (UA) Normal (Normal); Ketones,Urine Negative (Negative); Leukocyte Esterase,Urine Small (Negative); Nitrite,Urine Negative (Negative); PH,Urine 5.5 pH Units (5.0-8.0); Protein,Urine >=300 mg/dL (Neg-Trace); RBC,Urine TNTC per hpf (0-3); Specific Gravity,Urine 1.027 (1.010-1.025); Urobilinogen,Urine Normal (Normal); WBC,Urine 50-100 per hpf (0-3)
[2022-01-23 03:51] LABS: Basophils % 0.6 %; Eosinophils # 0.4 K/mcL (0.0-0.6); Eosinophils % 5.7 %; Hematocrit 20.5 % (37.5-50.1); Hemoglobin 6.4 g/dL (12.9-16.9); Immature Granulocytes % 0.9 % (0-4); Lymphocytes # 1.1 K/mcL (0.6-4.6); Lymphocytes % 16.8 %; Mean Corpuscular HGB Conc 31.2 g/dL (31.6-35.5); Mean Corpuscular Hemoglobin 26.9 pg (28.0-33.3); Mean Corpuscular Volume 86.1 fL (83.0-100.0); Mean Platelet Volume 10.1 fL (9.4-12.4); Monocytes # 0.7 K/mcL (0.0-1.3); Monocytes % 10.8 %; Neutrophils # 4.2 K/mcL (1.6-8.9); Platelet Count 118 K/mcL (140-400); Red Blood Count 2.38 M/mcL (4.19-5.50); Red Cell Distribution Width 19.9 % (11.5-14.5); Segmented Neutrophils % 65.2 %; White Blood Count 6.5 K/mcL (4.3-11.1)
[2022-01-23 04:06] LABS: Calcium 7.8 mg/dL (8.6-10.3); Potassium 3.8 mEq/L (3.5-5.1)
[2022-01-23] MEDS ORDERED: Calcium Gluconate 1gm/50mL 1 GM/50 ML BAG IVPB ONE (04:20)
[2022-01-23] MEDS ORDERED: 0.9 % Sodium Chloride 250 ML IVC PRN (07:37)
[2022-01-23] MEDS: Multivit/Ca/Min/Fe/FA 1 TAB TABLET PO SCH (08:18)
[2022-01-23] MEDS: Sucralfate 1 GM TABLET PO SCH ×4 (08:18→20:14)
[2022-01-23] MEDS: amLODIPine 5 MG TABLET PO SCH (08:18)
[2022-01-23] MEDS: Loratadine 10 MG TABLET PO SCH (08:19)
[2022-01-23] MEDS: Lactulose Oral Soln 20 GM/30 ML UDC PO SCH ×2 (08:19→20:15)
[2022-01-23] MEDS: Insulin LISPRO 300 UNITS/3 ML VIAL SUBQ SCH ×3 (08:28→17:42)
[2022-01-23] MEDS ORDERED: *HR* Heparin 10,000 UNIT/10 ML VIAL IV PRN (12:14)
[2022-01-23] MEDS: cloNIDine HCL 0.1 MG TABLET PO SCH ×3 (12:15→20:14)
[2022-01-23 18:30] LABS: Hematocrit 25.2 % (37.5-50.1); Hemoglobin 7.9 g/dL (12.9-16.9); Immature Platelets 4.1 % (1.1-6.1); Mean Corpuscular HGB Conc 31.3 g/dL (31.6-35.5); Mean Corpuscular Hemoglobin 27.1 pg (28.0-33.3); Mean Corpuscular Volume 86.6 fL (83.0-100.0); Mean Platelet Volume 10.9 fL (9.4-12.4); Red Blood Count 2.91 M/mcL (4.19-5.50); Red Cell Distribution Width 19.3 % (11.5-14.5); White Blood Count 7.5 K/mcL (4.3-11.1)
[2022-01-23] MEDS: Insulin DETEMIR 100 UNIT/ML X5UNITS SUBQ SCH (20:30)
[2022-01-23] MEDS: Gabapentin 300 MG CAPSULE PO SCH (22:31)
[2022-01-24 02:23] LABS: Basophils # 0.1 K/mcL (0.0-0.2); Basophils % 0.9 %; Eosinophils # 0.3 K/mcL (0.0-0.6); Eosinophils % 3.7 %; Hematocrit 23.2 % (37.5-50.1); Hemoglobin 7.4 g/dL (12.9-16.9); Immature Granulocytes % 1.3 % (0-4); Lymphocytes # 0.8 K/mcL (0.6-4.6); Lymphocytes % 12.2 %; Mean Corpuscular HGB Conc 31.9 g/dL (31.6-35.5); Mean Corpuscular Volume 84.7 fL (83.0-100.0); Mean Platelet Volume 10.3 fL (9.4-12.4); Monocytes # 0.7 K/mcL (0.0-1.3); Monocytes % 9.9 %; Neutrophils # 4.9 K/mcL (1.6-8.9); Platelet Count 116 K/mcL (140-400); Red Blood Count 2.74 M/mcL (4.19-5.50); Red Cell Distribution Width 19.4 % (11.5-14.5); White Blood Count 6.8 K/mcL (4.3-11.1)
[2022-01-24 02:42] LABS: Potassium 3.8 mEq/L (3.5-5.1)
[2022-01-24] MEDS: Aspirin 81 MG TAB.CHEW PO SCH (08:03)
[2022-01-24] MEDS: Loratadine 10 MG TABLET PO SCH (08:03)
[2022-01-24] MEDS: amLODIPine 5 MG TABLET PO SCH (08:03)
[2022-01-24] MEDS: Lactulose Oral Soln 20 GM/30 ML UDC PO SCH ×2 (08:04→21:11)
[2022-01-24] MEDS: Multivit/Ca/Min/Fe/FA 1 TAB TABLET PO SCH (08:04)
[2022-01-24] MEDS: Sucralfate 1 GM TABLET PO SCH ×4 (08:04→21:10)
[2022-01-24] MEDS: cloNIDine HCL 0.1 MG TABLET PO SCH ×3 (08:04→21:10)
[2022-01-24] MEDS: Insulin LISPRO 300 UNITS/3 ML VIAL SUBQ SCH ×3 (08:22→17:04)
[2022-01-24] MEDS ORDERED: Heparin 1,000 UNITS/500 mL 500 ML ONE (10:19)
[2022-01-24] MEDS ORDERED: Lidocaine/EPI 1:100k 1% 50 ML VIAL ONE (10:19)
[2022-01-24] MEDS ORDERED: *HR* FentaNYL (PF) 100 MCG/2 ML VIAL IVP ONE (10:50)
[2022-01-24] MEDS ORDERED: *HR* Midazolam HCl 2 MG/2 ML VIAL IVP ONE (10:50)
[2022-01-24] MEDS ORDERED: *HR* Heparin 5,000 UNIT/ML VIAL ONE (11:30)
[2022-01-24] MEDS: Gabapentin 300 MG CAPSULE PO SCH (21:10)
[2022-01-24] MEDS: Insulin DETEMIR 100 UNIT/ML X5UNITS SUBQ SCH (21:11)
[2022-01-24] MEDS: DAPTOmycin 700 MG in 0.9 % Sodium Chloride 100 ML IVPB SCH (21:11)
[2022-01-25 04:17] LABS: Basophils # 0.1 K/mcL (0.0-0.2); Basophils % 0.9 %; Eosinophils # 0.4 K/mcL (0.0-0.6); Hemoglobin 6.9 g/dL (12.9-16.9); Immature Granulocytes % 1.2 % (0-4); Lymphocytes % 14.7 %; Mean Corpuscular Hemoglobin 26.5 pg (28.0-33.3); Mean Corpuscular Volume 88.5 fL (83.0-100.0); Mean Platelet Volume 10.3 fL (9.4-12.4); Monocytes # 0.6 K/mcL (0.0-1.3); Monocytes % 9.2 %; Neutrophils # 4.5 K/mcL (1.6-8.9); Platelet Count 116 K/mcL (140-400); Red Cell Distribution Width 20.1 % (11.5-14.5); White Blood Count 6.6 K/mcL (4.3-11.1)
[2022-01-25 04:19] LABS: Calcium 7.9 mg/dL (8.6-10.3); Potassium 3.8 mEq/L (3.5-5.1)
[2022-01-25] MEDS ORDERED: 0.9 % Sodium Chloride 250 ML IVC PRN (07:42)
[2022-01-25] MEDS ORDERED: 0.9 % Sodium Chloride 1,000 ML PRIME SCH (07:45)
[2022-01-25] MEDS ORDERED: *HR* Heparin 10,000 UNIT/10 ML VIAL IV PRN (07:50)
[2022-01-25] MEDS: Lactulose Oral Soln 20 GM/30 ML UDC PO SCH ×2 (09:02→20:10)
[2022-01-25] MEDS: Aspirin 81 MG TAB.CHEW PO SCH (09:04)
[2022-01-25] MEDS: Multivit/Ca/Min/Fe/FA 1 TAB TABLET PO SCH (09:04)
[2022-01-25] MEDS: Loratadine 10 MG TABLET PO SCH (09:04)
[2022-01-25] MEDS: Sucralfate 1 GM TABLET PO SCH ×4 (09:04→20:09)
[2022-01-25] MEDS: Insulin LISPRO 300 UNITS/3 ML VIAL SUBQ SCH ×3 (09:05→19:07)
[2022-01-25] MEDS: amLODIPine 5 MG TABLET PO SCH (14:10)
[2022-01-25] MEDS: cloNIDine HCL 0.1 MG TABLET PO SCH ×3 (14:11→20:09)
[2022-01-25] MEDS ORDERED: 0.9 % Sodium Chloride 250 ML ONE (16:25)
[2022-01-25] MEDS: DAPTOmycin 700 MG in 0.9 % Sodium Chloride 100 ML IVPB SCH (20:07)
[2022-01-25] MEDS: Gabapentin 300 MG CAPSULE PO SCH (20:10)
[2022-01-25] MEDS: Insulin DETEMIR 100 UNIT/ML X5UNITS SUBQ SCH (20:14)
[2022-01-26 06:03] LABS: Hematocrit 26.6 % (37.5-50.1); Hemoglobin 8.2 g/dL (12.9-16.9); Mean Corpuscular HGB Conc 30.8 g/dL (31.6-35.5); Mean Corpuscular Hemoglobin 26.8 pg (28.0-33.3); Mean Corpuscular Volume 86.9 fL (83.0-100.0); Mean Platelet Volume 10.3 fL (9.4-12.4); Platelet Count 115 K/mcL (140-400); Red Blood Count 3.06 M/mcL (4.19-5.50); Red Cell Distribution Width 19.3 % (11.5-14.5); White Blood Count 7.5 K/mcL (4.3-11.1)
[2022-01-26] MEDS: Insulin LISPRO 300 UNITS/3 ML VIAL SUBQ SCH ×3 (08:37→17:09)
[2022-01-26 08:42] LABS: Calcium 7.9 mg/dL (8.6-10.3); Potassium 3.8 mEq/L (3.5-5.1)
[2022-01-26] MEDS: Lactulose Oral Soln 20 GM/30 ML UDC PO SCH ×2 (08:44→19:59)
[2022-01-26] MEDS: Sucralfate 1 GM TABLET PO SCH ×4 (08:47→20:10)
[2022-01-26] MEDS: amLODIPine 5 MG TABLET PO SCH (08:48)
[2022-01-26] MEDS: Loratadine 10 MG TABLET PO SCH (08:48)
[2022-01-26] MEDS: Aspirin 81 MG TAB.CHEW PO SCH (08:48)
[2022-01-26] MEDS: cloNIDine HCL 0.1 MG TABLET PO SCH ×3 (08:48→20:00)
[2022-01-26] MEDS: Multivit/Ca/Min/Fe/FA 1 TAB TABLET PO SCH (08:48)
[2022-01-26] MEDS: Gabapentin 300 MG CAPSULE PO SCH (20:00)
[2022-01-26] MEDS: Insulin DETEMIR 100 UNIT/ML X5UNITS SUBQ SCH (20:01)
[2022-01-27 02:35] LABS: Hematocrit 27.2 % (37.5-50.1); Hemoglobin 8.3 g/dL (12.9-16.9); Mean Corpuscular HGB Conc 30.5 g/dL (31.6-35.5); Mean Corpuscular Hemoglobin 26.8 pg (28.0-33.3); Mean Corpuscular Volume 87.7 fL (83.0-100.0); Mean Platelet Volume 10.6 fL (9.4-12.4); Platelet Count 126 K/mcL (140-400); Red Cell Distribution Width 19.5 % (11.5-14.5); White Blood Count 9.1 K/mcL (4.3-11.1)
[2022-01-27 02:54] LABS: Calcium 8.2 mg/dL (8.6-10.3); Potassium 4.1 mEq/L (3.5-5.1)
[2022-01-27] MEDS: Sucralfate 1 GM TABLET PO SCH ×4 (05:57→20:15)
[2022-01-27] MEDS: Lactulose Oral Soln 20 GM/30 ML UDC PO SCH ×2 (07:33→20:15)
[2022-01-27] MEDS: Aspirin 81 MG TAB.CHEW PO SCH (07:34)
[2022-01-27] MEDS ORDERED: 0.9 % Sodium Chloride 250 ML IVC PRN (07:34)
[2022-01-27] MEDS: Loratadine 10 MG TABLET PO SCH (07:34)
[2022-01-27] MEDS: amLODIPine 5 MG TABLET PO SCH (07:34)
[2022-01-27] MEDS: Multivit/Ca/Min/Fe/FA 1 TAB TABLET PO SCH (07:34)
[2022-01-27] MEDS: cloNIDine HCL 0.1 MG TABLET PO SCH ×3 (07:34→20:19)
[2022-01-27] MEDS: Insulin LISPRO 300 UNITS/3 ML VIAL SUBQ SCH ×3 (07:47→18:05)
[2022-01-27] MEDS ORDERED: *HR* Heparin 10,000 UNIT/10 ML VIAL IV PRN (12:50)
[2022-01-27] MEDS: Gabapentin 300 MG CAPSULE PO SCH (20:15)
[2022-01-27] MEDS: DAPTOmycin 700 MG in 0.9 % Sodium Chloride 100 ML IVPB SCH (20:20)
[2022-01-27] MEDS: Insulin DETEMIR 100 UNIT/ML X5UNITS SUBQ SCH (20:21)
[2022-01-28] MEDS: Sucralfate 1 GM TABLET PO SCH ×4 (06:08→22:19)
[2022-01-28] MEDS: Insulin LISPRO 300 UNITS/3 ML VIAL SUBQ SCH ×3 (07:46→16:37)
[2022-01-28] MEDS: amLODIPine 5 MG TABLET PO SCH (08:51)
[2022-01-28] MEDS: Aspirin 81 MG TAB.CHEW PO SCH (08:51)
[2022-01-28] MEDS: Lactulose Oral Soln 20 GM/30 ML UDC PO SCH ×2 (08:51→22:19)
[2022-01-28] MEDS: Loratadine 10 MG TABLET PO SCH (08:51)
[2022-01-28] MEDS: Multivit/Ca/Min/Fe/FA 1 TAB TABLET PO SCH (08:51)
[2022-01-28] MEDS: cloNIDine HCL 0.1 MG TABLET PO SCH ×3 (08:51→22:19)
[2022-01-28] MEDS: Gabapentin 300 MG CAPSULE PO SCH (22:19)
[2022-01-28] MEDS: Insulin DETEMIR 100 UNIT/ML X5UNITS SUBQ SCH (22:28)
[2022-01-29 02:03] LABS: Calcium 8.6 mg/dL (8.6-10.3)
[2022-01-29] MEDS: Sucralfate 1 GM TABLET PO SCH ×4 (06:27→22:32)
[2022-01-29] MEDS: Insulin LISPRO 300 UNITS/3 ML VIAL SUBQ SCH ×3 (08:12→16:42)
[2022-01-29] MEDS: Lactulose Oral Soln 20 GM/30 ML UDC PO SCH ×2 (08:13→22:32)
[2022-01-29] MEDS: Aspirin 81 MG TAB.CHEW PO SCH (08:14)
[2022-01-29] MEDS: Loratadine 10 MG TABLET PO SCH (08:14)
[2022-01-29] MEDS: Multivit/Ca/Min/Fe/FA 1 TAB TABLET PO SCH (08:14)
[2022-01-29] MEDS: cloNIDine HCL 0.1 MG TABLET PO SCH ×3 (08:14→22:31)
[2022-01-29] MEDS: amLODIPine 5 MG TABLET PO SCH (08:14)
[2022-01-29] MEDS: Gabapentin 300 MG CAPSULE PO SCH (22:32)
[2022-01-29] MEDS: Insulin DETEMIR 100 UNIT/ML X5UNITS SUBQ SCH (22:32)
[2022-01-30 05:42] LABS: Hematocrit 25.2 % (37.5-50.1); Hemoglobin 7.7 g/dL (12.9-16.9); Mean Corpuscular HGB Conc 30.6 g/dL (31.6-35.5); Mean Corpuscular Volume 88.4 fL (83.0-100.0); Mean Platelet Volume 10.4 fL (9.4-12.4); Platelet Count 112 K/mcL (140-400); Red Blood Count 2.85 M/mcL (4.19-5.50); Red Cell Distribution Width 19.1 % (11.5-14.5); White Blood Count 8.6 K/mcL (4.3-11.1)
[2022-01-30] MEDS: Sucralfate 1 GM TABLET PO SCH ×4 (06:00→21:27)
[2022-01-30 06:30] LABS: Calcium 8.4 mg/dL (8.6-10.3); Phosphorous 4.8 mg/dL (2.7-4.5); Potassium 4.3 mEq/L (3.5-5.1)
[2022-01-30] MEDS ORDERED: 0.9 % Sodium Chloride 250 ML IVC PRN (07:53)
[2022-01-30] MEDS ORDERED: 0.9 % Sodium Chloride 1,000 ML PRIME SCH (08:00)
[2022-01-30] MEDS: amLODIPine 5 MG TABLET PO SCH (08:33)
[2022-01-30] MEDS: cloNIDine HCL 0.1 MG TABLET PO SCH ×3 (08:33→21:27)
[2022-01-30] MEDS: Insulin LISPRO 300 UNITS/3 ML VIAL SUBQ SCH ×3 (08:49→17:26)
[2022-01-30] MEDS: Loratadine 10 MG TABLET PO SCH (08:50)
[2022-01-30] MEDS: Multivit/Ca/Min/Fe/FA 1 TAB TABLET PO SCH (08:50)
[2022-01-30] MEDS: Lactulose Oral Soln 20 GM/30 ML UDC PO SCH ×3 (08:50→21:28)
[2022-01-30] MEDS: Aspirin 81 MG TAB.CHEW PO SCH (08:50)
[2022-01-30] MEDS: Gabapentin 300 MG CAPSULE PO SCH (21:27)
[2022-01-30] MEDS: Insulin DETEMIR 100 UNIT/ML X5UNITS SUBQ SCH (21:27)
[2022-01-31 02:11] LABS: Hematocrit 25.8 % (37.5-50.1); Hemoglobin 7.9 g/dL (12.9-16.9); Mean Corpuscular HGB Conc 30.6 g/dL (31.6-35.5); Mean Corpuscular Hemoglobin 26.7 pg (28.0-33.3); Mean Corpuscular Volume 87.2 fL (83.0-100.0); Mean Platelet Volume 10.4 fL (9.4-12.4); Platelet Count 117 K/mcL (140-400); Red Blood Count 2.96 M/mcL (4.19-5.50); Red Cell Distribution Width 18.9 % (11.5-14.5)
[2022-01-31 02:33] LABS: Calcium 8.5 mg/dL (8.6-10.3); Phosphorous 5.8 mg/dL (2.7-4.5)
[2022-01-31] MEDS ORDERED: 0.9 % Sodium Chloride 250 ML IVC PRN (07:44)
[2022-01-31] MEDS ORDERED: 0.9 % Sodium Chloride 1,000 ML PRIME SCH (07:45)
[2022-01-31] MEDS: Insulin LISPRO 300 UNITS/3 ML VIAL SUBQ SCH ×3 (12:55→18:20)
[2022-01-31] MEDS: amLODIPine 5 MG TABLET PO SCH (12:57)
[2022-01-31] MEDS: Sucralfate 1 GM TABLET PO SCH ×4 (13:00→21:08)
[2022-01-31] MEDS: cloNIDine HCL 0.1 MG TABLET PO SCH ×3 (13:01→21:04)
[2022-01-31] MEDS: Multivit/Ca/Min/Fe/FA 1 TAB TABLET PO SCH (13:07)
[2022-01-31] MEDS: Lactulose Oral Soln 20 GM/30 ML UDC PO SCH ×2 (13:07→21:05)
[2022-01-31] MEDS: Aspirin 81 MG TAB.CHEW PO SCH (13:08)
[2022-01-31] MEDS: Loratadine 10 MG TABLET PO SCH (13:08)
[2022-01-31] MEDS: DAPTOmycin 700 MG in 0.9 % Sodium Chloride 100 ML IVPB SCH (21:03)
[2022-01-31] MEDS: Gabapentin 300 MG CAPSULE PO SCH (21:04)
[2022-01-31] MEDS: Insulin DETEMIR 100 UNIT/ML X5UNITS SUBQ SCH (21:04)
[2022-01-31] MEDS ORDERED: *HR* Labetalol 20 MG/4 ML SYRINGE IVP ONE (22:46)
[2022-02-01] MEDS: Lactulose Oral Soln 20 GM/30 ML UDC PO SCH (07:49)
[2022-02-01] MEDS: Insulin LISPRO 300 UNITS/3 ML VIAL SUBQ SCH ×3 (07:49→18:35)
[2022-02-01] MEDS: Multivit/Ca/Min/Fe/FA 1 TAB TABLET PO SCH (07:49)
[2022-02-01] MEDS: Sucralfate 1 GM TABLET PO SCH ×4 (07:50→21:19)
[2022-02-01] MEDS: cloNIDine HCL 0.1 MG TABLET PO SCH ×3 (07:50→21:19)
[2022-02-01] MEDS: Aspirin 81 MG TAB.CHEW PO SCH (07:50)
[2022-02-01] MEDS: Loratadine 10 MG TABLET PO SCH (07:50)
[2022-02-01] MEDS: amLODIPine 5 MG TABLET PO SCH (07:51)
[2022-02-01] MEDS ORDERED: *HR* Heparin 10,000 UNIT/10 ML VIAL IV PRN (08:21)
[2022-02-01] MEDS ORDERED: 0.9 % Sodium Chloride 250 ML IVC PRN (08:21)
[2022-02-01] MEDS ORDERED: 0.9 % Sodium Chloride 1,000 ML PRIME SCH (08:30)
[2022-02-01 14:20] LABS: Calcium 8.4 mg/dL (8.6-10.3); Potassium 4.4 mEq/L (3.5-5.1)
[2022-02-01 15:30] LABS: ABG Base Excess 3 mEq/L (-2 to 3); ABG HCO3 28 mEq/L (21-27); ABG Oxygen Saturation 85 % (95-98); ABG PCO2 46 mmHg (35-45); ABG PH 7.39 pH Units (7.32-7.45); ABG PO2 51 mmHg (85-104); ABG TCO2 30 mEq/L (20-26)
[2022-02-01] MEDS: Lactulose 200 GM, Sodium Chloride IRRigation 700 ML RC SCH (16:55)
[2022-02-01] MEDS: Gabapentin 300 MG CAPSULE PO SCH (21:19)
[2022-02-01] MEDS: Insulin DETEMIR 100 UNIT/ML X5UNITS SUBQ SCH (22:51)
[2022-02-02 04:59] LABS: Basophils % 0.4 %; Eosinophils # 0.4 K/mcL (0.0-0.6); Eosinophils % 5.1 %; Hematocrit 22.7 % (37.5-50.1); Hemoglobin 6.8 g/dL (12.9-16.9); Immature Granulocytes % 1.2 % (0-4); Lymphocytes % 11.9 %; Mean Corpuscular Hemoglobin 26.7 pg (28.0-33.3); Mean Platelet Volume 10.7 fL (9.4-12.4); Monocytes % 11.9 %; Neutrophils # 5.7 K/mcL (1.6-8.9); Platelet Count 110 K/mcL (140-400); Red Blood Count 2.55 M/mcL (4.19-5.50); Red Cell Distribution Width 18.9 % (11.5-14.5); Segmented Neutrophils % 69.5 %; White Blood Count 8.2 K/mcL (4.3-11.1)
[2022-02-02 05:28] LABS: Albumin 2.7 g/dL (3.5-5.7); Albumin/Globulin Ratio 0.9 (1.1-2.2); Bilirubin,Total 0.3 mg/dL (0.3-1.0); Globulin 3.1 g/dL (2.4-3.5); Potassium 4.8 mEq/L (3.5-5.1); Total Protein 5.8 g/dL (6.4-8.9)
[2022-02-02] MEDS: Multivit/Ca/Min/Fe/FA 1 TAB TABLET PO SCH (08:09)
[2022-02-02] MEDS: amLODIPine 5 MG TABLET PO SCH (08:09)
[2022-02-02] MEDS: Sucralfate 1 GM TABLET PO SCH ×4 (08:09→22:32)
[2022-02-02] MEDS: Aspirin 81 MG TAB.CHEW PO SCH (08:09)
[2022-02-02] MEDS: Loratadine 10 MG TABLET PO SCH (08:09)
[2022-02-02] MEDS: cloNIDine HCL 0.1 MG TABLET PO SCH ×3 (08:09→22:33)
[2022-02-02] MEDS: Insulin LISPRO 300 UNITS/3 ML VIAL SUBQ SCH ×3 (08:10→17:08)
[2022-02-02] MEDS: Lactulose 200 GM, Sodium Chloride IRRigation 700 ML RC SCH ×2 (08:13→22:02)
[2022-02-02] MEDS ORDERED: *HR* Heparin 10,000 UNIT/10 ML VIAL IV PRN (08:17)
[2022-02-02] MEDS ORDERED: 0.9 % Sodium Chloride 250 ML IVC PRN (08:17)
[2022-02-02] MEDS ORDERED: 0.9 % Sodium Chloride 250 ML ONE (09:36)
[2022-02-02 17:39] LABS: Hematocrit 26.6 % (37.5-50.1); Hemoglobin 8.3 g/dL (12.9-16.9)
[2022-02-02] MEDS: DAPTOmycin 700 MG in 0.9 % Sodium Chloride 100 ML IVPB SCH (21:58)
[2022-02-02] MEDS: Gabapentin 300 MG CAPSULE PO SCH (22:32)
[2022-02-02] MEDS: Insulin DETEMIR 100 UNIT/ML X5UNITS SUBQ SCH (23:47)
[2022-02-03 04:45] LABS: Basophils # 0.1 K/mcL (0.0-0.2); Basophils % 1.1 %; Eosinophils # 0.4 K/mcL (0.0-0.6); Eosinophils % 4.7 %; Hematocrit 25.5 % (37.5-50.1); Hemoglobin 7.7 g/dL (12.9-16.9); Immature Granulocytes % 1.9 % (0-4); Lymphocytes # 1.3 K/mcL (0.6-4.6); Lymphocytes % 15.8 %; Mean Corpuscular HGB Conc 30.2 g/dL (31.6-35.5); Mean Corpuscular Hemoglobin 26.7 pg (28.0-33.3); Mean Corpuscular Volume 88.5 fL (83.0-100.0); Mean Platelet Volume 10.9 fL (9.4-12.4); Monocytes # 0.9 K/mcL (0.0-1.3); Monocytes % 11.4 %; Neutrophils # 5.3 K/mcL (1.6-8.9); Platelet Count 111 K/mcL (140-400); Red Blood Count 2.88 M/mcL (4.19-5.50); Red Cell Distribution Width 18.1 % (11.5-14.5); Segmented Neutrophils % 65.1 %; White Blood Count 8.1 K/mcL (4.3-11.1)
[2022-02-03 05:02] LABS: Albumin 2.6 g/dL (3.5-5.7); Albumin/Globulin Ratio 0.7 (1.1-2.2); Bilirubin,Total 0.4 mg/dL (0.3-1.0); Globulin 3.5 g/dL (2.4-3.5); Potassium 4.1 mEq/L (3.5-5.1); Total Protein 6.1 g/dL (6.4-8.9)
[2022-02-03] MEDS: Insulin LISPRO 300 UNITS/3 ML VIAL SUBQ SCH ×3 (09:15→16:27)
[2022-02-03] MEDS: Multivit/Ca/Min/Fe/FA 1 TAB TABLET PO SCH (09:30)
[2022-02-03] MEDS: Lactulose Oral Soln 20 GM/30 ML UDC PO SCH ×4 (09:30→17:03)
[2022-02-03] MEDS: amLODIPine 5 MG TABLET PO SCH (09:30)
[2022-02-03] MEDS: Lactulose 200 GM, Sodium Chloride IRRigation 700 ML RC SCH (09:31)
[2022-02-03] MEDS: Aspirin 81 MG TAB.CHEW PO SCH (09:31)
[2022-02-03] MEDS: Loratadine 10 MG TABLET PO SCH (09:31)
[2022-02-03] MEDS: cloNIDine HCL 0.1 MG TABLET PO SCH ×3 (09:31→22:25)
[2022-02-03] MEDS: Sucralfate 1 GM TABLET PO SCH ×4 (09:43→22:25)
[2022-02-03] MEDS ORDERED: Saline Nasal Spray 44 ML BOTTLE NS PRN (11:37)
[2022-02-03] MEDS: Gabapentin 300 MG CAPSULE PO SCH (22:25)
[2022-02-03] MEDS: Insulin DETEMIR 100 UNIT/ML X5UNITS SUBQ SCH (22:25)
[2022-02-04 05:49] LABS: Basophils # 0.1 K/mcL (0.0-0.2); Basophils % 0.6 %; Eosinophils # 0.4 K/mcL (0.0-0.6); Eosinophils % 4.1 %; Hematocrit 22.3 % (37.5-50.1); Hemoglobin 6.8 g/dL (12.9-16.9); Immature Granulocytes % 1.3 % (0-4); Lymphocytes # 1.5 K/mcL (0.6-4.6); Lymphocytes % 16.7 %; Mean Corpuscular HGB Conc 30.5 g/dL (31.6-35.5); Mean Corpuscular Hemoglobin 26.8 pg (28.0-33.3); Mean Corpuscular Volume 87.8 fL (83.0-100.0); Mean Platelet Volume 10.3 fL (9.4-12.4); Monocytes % 11.8 %; Neutrophils # 5.7 K/mcL (1.6-8.9); Platelet Count 104 K/mcL (140-400); Red Blood Count 2.54 M/mcL (4.19-5.50); Red Cell Distribution Width 17.8 % (11.5-14.5); Segmented Neutrophils % 65.5 %; White Blood Count 8.8 K/mcL (4.3-11.1)
[2022-02-04 06:08] LABS: Albumin 2.6 g/dL (3.5-5.7); Albumin/Globulin Ratio 0.8 (1.1-2.2); Bilirubin,Total 0.3 mg/dL (0.3-1.0); Globulin 3.1 g/dL (2.4-3.5); Total Protein 5.7 g/dL (6.4-8.9)
[2022-02-04] MEDS ORDERED: 0.9 % Sodium Chloride 250 ML IVC PRN (07:35)
[2022-02-04] MEDS ORDERED: *HR* Heparin 10,000 UNIT/10 ML VIAL IV PRN (07:49)
[2022-02-04] MEDS: Insulin LISPRO 300 UNITS/3 ML VIAL SUBQ SCH ×3 (08:10→17:52)
[2022-02-04] MEDS: Sucralfate 1 GM TABLET PO SCH ×4 (14:43→21:40)
[2022-02-04] MEDS: Aspirin 81 MG TAB.CHEW PO SCH (14:43)
[2022-02-04] MEDS: Lactulose Oral Soln 20 GM/30 ML UDC PO SCH ×3 (14:49→21:39)
[2022-02-04] MEDS: cloNIDine HCL 0.1 MG TABLET PO SCH ×3 (14:49→21:39)
[2022-02-04] MEDS: Loratadine 10 MG TABLET PO SCH (14:49)
[2022-02-04] MEDS: amLODIPine 5 MG TABLET PO SCH (14:50)
[2022-02-04] MEDS: Multivit/Ca/Min/Fe/FA 1 TAB TABLET PO SCH (14:52)
[2022-02-04 20:44] LABS: Hematocrit 26.6 % (37.5-50.1); Hemoglobin 8.9 g/dL (12.9-16.9)
[2022-02-04] MEDS: DAPTOmycin 700 MG in 0.9 % Sodium Chloride 100 ML IVPB SCH (21:13)
[2022-02-04] MEDS: Insulin DETEMIR 100 UNIT/ML X5UNITS SUBQ SCH (21:40)
[2022-02-04] MEDS: Gabapentin 300 MG CAPSULE PO SCH (21:40)
[2022-02-05 03:27] LABS: Basophils # 0.1 K/mcL (0.0-0.2); Basophils % 0.3 %; Eosinophils # 0.3 K/mcL (0.0-0.6); Eosinophils % 1.9 %; Hemoglobin 7.5 g/dL (12.9-16.9); Immature Granulocytes % 1.2 % (0-4); Lymphocytes # 1.3 K/mcL (0.6-4.6); Lymphocytes % 8.3 %; Mean Corpuscular HGB Conc 31.3 g/dL (31.6-35.5); Mean Corpuscular Hemoglobin 27.4 pg (28.0-33.3); Mean Corpuscular Volume 87.6 fL (83.0-100.0); Mean Platelet Volume 10.6 fL (9.4-12.4); Monocytes # 1.5 K/mcL (0.0-1.3); Monocytes % 9.7 %; Platelet Count 103 K/mcL (140-400); Red Blood Count 2.74 M/mcL (4.19-5.50); Red Cell Distribution Width 18.2 % (11.5-14.5); Segmented Neutrophils % 78.6 %
[2022-02-05 03:30] LABS: Neutrophils # 12.3 K/mcL (1.6-8.9); White Blood Count 15.6 K/mcL (4.3-11.1)
[2022-02-05 03:44] LABS: Calcium 8.1 mg/dL (8.6-10.3)
[2022-02-05] MEDS: Sucralfate 1 GM TABLET PO SCH ×4 (05:59→20:31)
[2022-02-05] MEDS: Loratadine 10 MG TABLET PO SCH (08:52)
[2022-02-05] MEDS: amLODIPine 5 MG TABLET PO SCH (08:52)
[2022-02-05] MEDS: Insulin LISPRO 300 UNITS/3 ML VIAL SUBQ SCH ×3 (08:52→16:23)
[2022-02-05] MEDS: cloNIDine HCL 0.1 MG TABLET PO SCH ×3 (08:52→20:30)
[2022-02-05] MEDS: Multivit/Ca/Min/Fe/FA 1 TAB TABLET PO SCH (08:52)
[2022-02-05] MEDS: Aspirin 81 MG TAB.CHEW PO SCH (08:53)
[2022-02-05] MEDS: Lactulose Oral Soln 20 GM/30 ML UDC PO SCH ×3 (08:53→20:32)
[2022-02-05] MEDS: Gabapentin 300 MG CAPSULE PO SCH (20:31)
[2022-02-05] MEDS: Insulin DETEMIR 100 UNIT/ML X5UNITS SUBQ SCH (20:53)
[2022-02-06 04:54] LABS: Basophils % 0.4 %; Hemoglobin 6.7 g/dL (12.9-16.9)
[2022-02-06 04:55] LABS: Eosinophils # 0.4 K/mcL (0.0-0.6); Eosinophils % 3.6 %; Hematocrit 21.7 % (37.5-50.1); Immature Granulocytes % 1.5 % (0-4); Immature Platelets 3.6 % (1.1-6.1); Lymphocytes % 12.5 %; Mean Corpuscular HGB Conc 30.9 g/dL (31.6-35.5); Mean Corpuscular Hemoglobin 27.2 pg (28.0-33.3); Mean Corpuscular Volume 88.2 fL (83.0-100.0); Mean Platelet Volume 10.8 fL (9.4-12.4); Monocytes % 10.3 %; Red Blood Count 2.46 M/mcL (4.19-5.50); Red Cell Distribution Width 17.9 % (11.5-14.5); Segmented Neutrophils % 71.7 %
[2022-02-06 05:00] LABS: Lymphocytes # 1.3 K/mcL (0.6-4.6); Neutrophils # 7.2 K/mcL (1.6-8.9); Platelet Count 99 K/mcL (140-400)
[2022-02-06 05:07] LABS: Albumin 2.5 g/dL (3.5-5.7); Albumin/Globulin Ratio 0.7 (1.1-2.2); Bilirubin,Total 0.3 mg/dL (0.3-1.0); Calcium 8.5 mg/dL (8.6-10.3); Globulin 3.5 g/dL (2.4-3.5); Potassium 3.9 mEq/L (3.5-5.1)
[2022-02-06] MEDS ORDERED: Lactulose 200 GM, Sodium Chloride IRRigation 700 ML RC ONE (06:19)
[2022-02-06] MEDS: Sucralfate 1 GM TABLET PO SCH ×4 (08:34→20:35)
[2022-02-06] MEDS: Loratadine 10 MG TABLET PO SCH (08:35)
[2022-02-06] MEDS: Insulin LISPRO 300 UNITS/3 ML VIAL SUBQ SCH ×3 (08:35→18:03)
[2022-02-06] MEDS: Lactulose Oral Soln 20 GM/30 ML UDC PO SCH (08:35)
[2022-02-06] MEDS: Aspirin 81 MG TAB.CHEW PO SCH (08:35)
[2022-02-06] MEDS: cloNIDine HCL 0.1 MG TABLET PO SCH ×3 (08:35→20:35)
[2022-02-06] MEDS: Multivit/Ca/Min/Fe/FA 1 TAB TABLET PO SCH (08:36)
[2022-02-06] MEDS: amLODIPine 5 MG TABLET PO SCH (08:36)
[2022-02-06] MEDS ORDERED: 0.9 % Sodium Chloride 500 ML ONE (10:30)
[2022-02-06 15:27] LABS: Hematocrit 23.3 % (37.5-50.1); Hemoglobin 7.5 g/dL (12.9-16.9)
[2022-02-06] MEDS: Lactulose 200 GM, Sodium Chloride IRRigation 700 ML RC SCH ×2 (16:15→20:35)
[2022-02-06] MEDS: Insulin DETEMIR 100 UNIT/ML X5UNITS SUBQ SCH (20:32)
[2022-02-06] MEDS: Gabapentin 300 MG CAPSULE PO SCH (20:35)
[2022-02-07 05:03] LABS: Basophils # 0.1 K/mcL (0.0-0.2); Basophils % 0.6 %; Eosinophils # 0.5 K/mcL (0.0-0.6); Eosinophils % 4.3 %; Hematocrit 23.4 % (37.5-50.1); Hemoglobin 7.2 g/dL (12.9-16.9); Immature Granulocytes % 1.2 % (0-4); Lymphocytes # 1.4 K/mcL (0.6-4.6); Lymphocytes % 12.1 %; Mean Corpuscular HGB Conc 30.8 g/dL (31.6-35.5); Mean Corpuscular Hemoglobin 27.2 pg (28.0-33.3); Mean Corpuscular Volume 88.3 fL (83.0-100.0); Mean Platelet Volume 10.9 fL (9.4-12.4); Monocytes % 8.4 %; Neutrophils # 8.5 K/mcL (1.6-8.9); Platelet Count 107 K/mcL (140-400); Red Blood Count 2.65 M/mcL (4.19-5.50); Red Cell Distribution Width 17.3 % (11.5-14.5); Segmented Neutrophils % 73.4 %; White Blood Count 11.6 K/mcL (4.3-11.1)
[2022-02-07 05:25] LABS: Calcium 8.5 mg/dL (8.6-10.3); Potassium 4.3 mEq/L (3.5-5.1)
[2022-02-07] MEDS ORDERED: 0.9 % Sodium Chloride 250 ML IVC PRN (07:33)
[2022-02-07] MEDS ORDERED: 0.9 % Sodium Chloride 1,000 ML PRIME SCH (07:45)
[2022-02-07] MEDS: Loratadine 10 MG TABLET PO SCH (07:59)
[2022-02-07] MEDS: cloNIDine HCL 0.1 MG TABLET PO SCH ×4 (07:59→20:33)
[2022-02-07] MEDS: Sucralfate 1 GM TABLET PO SCH ×3 (07:59→20:34)
[2022-02-07] MEDS: amLODIPine 5 MG TABLET PO SCH ×2 (08:00→11:23)
[2022-02-07] MEDS: Multivit/Ca/Min/Fe/FA 1 TAB TABLET PO SCH (08:01)
[2022-02-07] MEDS: Insulin LISPRO 300 UNITS/3 ML VIAL SUBQ SCH ×2 (08:24→13:20)
[2022-02-07] MEDS ORDERED: Metoclopramide 10 MG/2 ML VIAL IVP ONE (10:20)
[2022-02-07] MEDS: Lactulose 200 GM, Sodium Chloride IRRigation 700 ML RC SCH ×3 (11:59→20:31)
[2022-02-07 13:26] LABS: Hematocrit 23.2 % (37.5-50.1); Hemoglobin 7.1 g/dL (12.9-16.9)
[2022-02-07] MEDS: Pantoprazole 40 MG VIAL IVP SCH (20:00)
[2022-02-07] MEDS: Insulin DETEMIR 100 UNIT/ML X5UNITS SUBQ SCH (20:32)
[2022-02-07] MEDS: DAPTOmycin 700 MG in 0.9 % Sodium Chloride 100 ML IVPB SCH (20:32)
[2022-02-07] MEDS: Gabapentin 300 MG CAPSULE PO SCH (20:33)
[2022-02-08 06:12] LABS: Basophils # 0.1 K/mcL (0.0-0.2); Basophils % 0.7 %; Eosinophils # 0.4 K/mcL (0.0-0.6); Eosinophils % 4.1 %; Hematocrit 22.3 % (37.5-50.1); Hemoglobin 6.8 g/dL (12.9-16.9); Immature Granulocytes % 1.1 % (0-4); Lymphocytes # 0.9 K/mcL (0.6-4.6); Lymphocytes % 8.6 %; Mean Corpuscular HGB Conc 30.5 g/dL (31.6-35.5); Mean Corpuscular Hemoglobin 27.5 pg (28.0-33.3); Mean Corpuscular Volume 90.3 fL (83.0-100.0); Mean Platelet Volume 10.8 fL (9.4-12.4); Monocytes # 0.9 K/mcL (0.0-1.3); Monocytes % 8.6 %; Neutrophils # 7.7 K/mcL (1.6-8.9); Platelet Count 113 K/mcL (140-400); Red Blood Count 2.47 M/mcL (4.19-5.50); Red Cell Distribution Width 17.4 % (11.5-14.5); Segmented Neutrophils % 76.9 %; White Blood Count 10.1 K/mcL (4.3-11.1)
[2022-02-08] MEDS: Pantoprazole 40 MG VIAL IVP SCH ×2 (06:48→18:48)
[2022-02-08] MEDS ORDERED: 0.9 % Sodium Chloride 250 ML IVC PRN (07:41)
[2022-02-08] MEDS ORDERED: *HR* Heparin 10,000 UNIT/10 ML VIAL IV PRN (07:49)
[2022-02-08 08:06] LABS: Calcium 8.1 mg/dL (8.6-10.3); Potassium 4.5 mEq/L (3.5-5.1)
[2022-02-08] MEDS: Multivit/Ca/Min/Fe/FA 1 TAB TABLET PO SCH (08:17)
[2022-02-08] MEDS: cloNIDine HCL 0.1 MG TABLET PO SCH ×3 (08:17→21:11)
[2022-02-08] MEDS: Loratadine 10 MG TABLET PO SCH (08:17)
[2022-02-08] MEDS: Sucralfate 1 GM TABLET PO SCH ×4 (08:17→21:11)
[2022-02-08] MEDS: amLODIPine 5 MG TABLET PO SCH (08:17)
[2022-02-08] MEDS: Lactulose 200 GM, Sodium Chloride IRRigation 700 ML RC SCH ×4 (09:07→21:10)
[2022-02-08] MEDS: Insulin LISPRO 300 UNITS/3 ML VIAL SUBQ SCH ×3 (11:02→18:48)
[2022-02-08] MEDS ORDERED: Lidocaine -MPF 2% 5 ML VIAL SQ ONE (17:24)
[2022-02-08] MEDS ORDERED: *HR* Propofol 200 MG/20 ML VIAL IVP ONE (17:24)
[2022-02-08] MEDS: Insulin DETEMIR 100 UNIT/ML X5UNITS SUBQ SCH (21:10)
[2022-02-08] MEDS: Gabapentin 300 MG CAPSULE PO SCH (21:11)
[2022-02-09 02:28] LABS: % Iron Saturation 9 % (20-55); Iron 19 mcg/dL (65-175); Transferrin 146 mg/dL (203-362)
[2022-02-09 02:46] LABS: Ferritin 121 ng/mL (20-250)
[2022-02-09] MEDS: Lactulose 200 GM, Sodium Chloride IRRigation 700 ML RC SCH (04:44)
[2022-02-09] MEDS: Pantoprazole 40 MG VIAL IVP SCH (04:44)
[2022-02-09] MEDS: cloNIDine HCL 0.1 MG TABLET PO SCH ×2 (09:06→15:32)
[2022-02-09] MEDS: amLODIPine 5 MG TABLET PO SCH (09:06)
[2022-02-09] MEDS: Multivit/Ca/Min/Fe/FA 1 TAB TABLET PO SCH (09:06)
[2022-02-09] MEDS: Sucralfate 1 GM TABLET PO SCH ×3 (09:06→15:32)
[2022-02-09] MEDS: Loratadine 10 MG TABLET PO SCH (09:06)
[2022-02-09] MEDS: Insulin LISPRO 300 UNITS/3 ML VIAL SUBQ SCH ×2 (09:07→12:50)
[2022-02-09 09:31] LABS: Basophils # 0.1 K/mcL (0.0-0.2); Basophils % 0.7 %; Eosinophils # 0.5 K/mcL (0.0-0.6); Eosinophils % 4.3 %; Hematocrit 27.4 % (37.5-50.1); Immature Granulocytes % 1.9 % (0-4); Lymphocytes # 1.3 K/mcL (0.6-4.6); Lymphocytes % 12.1 %; Mean Corpuscular HGB Conc 30.7 g/dL (31.6-35.5); Mean Corpuscular Hemoglobin 27.9 pg (28.0-33.3); Mean Platelet Volume 10.5 fL (9.4-12.4); Monocytes # 0.9 K/mcL (0.0-1.3); Monocytes % 8.6 %; Neutrophils # 7.8 K/mcL (1.6-8.9); Platelet Count 129 K/mcL (140-400); Red Blood Count 3.01 M/mcL (4.19-5.50); Red Cell Distribution Width 17.2 % (11.5-14.5); Segmented Neutrophils % 72.4 %; White Blood Count 10.7 K/mcL (4.3-11.1)
[2022-02-09 09:32] LABS: Hemoglobin 8.4 g/dL (12.9-16.9)
[2022-02-09 09:52] LABS: Calcium 8.4 mg/dL (8.6-10.3); Potassium 4.3 mEq/L (3.5-5.1)
[2022-02-09] MEDS ORDERED: Lactulose Oral Soln 20 GM/30 ML UDC PO SCH (11:45)
[2022-02-09 12:51] VITALS: BP 123/63; PULSE 64; TEMP 98; O2SAT 94
[2022-02-09 14:32] LABS: Adenovirus Not Detected (Not Detect); Bordetella Pertussis Not Detected (Not Detect); Chlamydophila pneumoniae Not Detected (Not Detect); Coronavirus 229E Not Detected (Not Detect); Coronavirus HKU1 Not Detected (Not Detect); Coronavirus NL63 Not Detected (Not Detect); Coronavirus OC43 Not Detected (Not Detect); Human Metapneumovirus Not Detected (Not Detect); Human Rhinovirus/Enterovirus Not Detected (Not Detect); Influenza A Subtype 2009 H1 Not Detected (Not Detect); Influenza B Not Detected (Not Detect); Mycoplasma pneumoniae Not Detected (Not Detect); Parainfluenza Virus 1 Not Detected (Not Detect); Parainfluenza Virus 2 Not Detected (Not Detect); Parainfluenza Virus 3 Not Detected (Not Detect); Parainfluenza Virus 4 Not Detected (Not Detect); Respiratory Syncytial Virus Not Detected (Not Detect); SARS-CoV-2 Not Detected (Not Detect)
== END 2022-02-09 17:25 | DRG 871 ==
LOC: EMEROOARM 13:35 → 3NENU 13:35 → SUATTDRO 20:46 → 3NENU 22:07 → SUATTDRO 01-09 17:30 → 3ANU 01-16 16:31
PROVIDERS: ADMIT Internal Medicine; ATTEND Family Medicine
PROC: IRPERMA (2022-01-24 12:00)
PROC: ENDOEBX (2022-02-08 13:55)